=== PATIENT | male | born 1955 | race African-American/Black ===

== ENCOUNTER → 2018-07-12 | Day surgery (SDC) | payer MEDICARE, OTHER ==
[~2018-07-12] VITALS: Ht 182.9 cm; Wt 53.1 kg
[2018-07-12] VITALS (17 sets, daily range): BP systolic 103–193; BP diastolic 54–119; PULSE 95–104; RESP 17–18; Ht 182.9 cm; Wt 53.1 kg
[~2018-07-12] MED LIST: AMLO-218 PO; ASPI81TA52 PO; ATOR-2 PO; BACL10TA PO; CEFAZOLIN 1 GM INJ ONE; DEXTROSE 50% 50 ML SYRINGE IV ONE; DEXTROSE 50% 50 ML SYRINGE ONE; DIPHENHYDRAMINE 50 MG INJ IV PRN; FENTAnyl 50 MCG/ML VIAL IV PRN; FENTAnyl 50 MCG/ML VIAL ONE; FOLI1CAP PO; GELATIN SIZE 100 SPONGE ONE; GELATIN SIZE 100 SPONGE TOP ONE; GLIP5TAB13 PO; HEPARIN 1000 UNITS/ML 10 ML INJ IRR ONE; HEPARIN 1000 UNITS/ML 10 ML INJ ONE; HYDROmorphONE 1 MG/5 ML IV SYRINGE IV PRN; IPRATROPIUM (NEB) 0.5 MG/2.5 ML AMP HHN PRN; LABETALOL HCL 20MG INJ IV PRN; LEVALBUTEROL (NEB) 1.25 MG/0.5 ML AMP HHN PRN; LIDOCAINE 1% (MPF) 30 ML INJ ONE; METOCLOPRAMIDE 10 MG INJ ONE; MIDAZOLAM 1 MG/ML 2 ML INJ ONE; MIRT15TA5 PO; ONDANSETRON 4 MG INJ IV PRN; ONDANSETRON 4 MG INJ ONE; PARO10TA57 PO; PHENYLephrine (100 MCG/ML) 10ML SYG ONE; PROPOFOL 20 ML ONE; ROPIVACAINE 0.5 % 30 ML VIAL ONE; SEVOFLURANE 15 MIN ONE; SVL800C PO; THROMBIN 5000 UNIT VIAL ONE; THROMBIN 5000 UNIT VIAL TOP ONE; ZINC220C5 PO; hydrALAzine 20 MG INJ IV PRN
--- NOTE | 2018-07-12 07:05 | HPN ---
Date/Time of Note Date/Time of Note DATE: 07/12/18 TIME: 07:05 Interval H&P Admission Note Pt. seen H&P reviewed: No system changes JUWAN KANG MD Jul 12, 2018 07:05
--- NOTE | 2018-07-12 08:00 | PREAC ---
Date/Time of Note Date/Time of Note DATE: 07/12/18 TIME: 07:58 Anesthesia Eval and Record Evaluation Time Pre-Procedure Interview DATE: 07/12/18 TIME: 07:58 Age 62 Sex male NPO: 8 hrs Preoperative diagnosis ESRD Planned procedure L arm fistula creation Past Medical History Past Medical History: Includes Cardio: HTN, Dyslipidemia, CHF Endo: Diabetes Neuro: CVA (x4), Other (global weakness w/ L arm hemiplegia) Renal: ESRD on dialysis Heme: Anemia Surgery & Anesthesia Issues No known issue Meds Anticoagulation: No Beta Beny within 24 hr: No Reason Beta Beny not given: Pt. not on B-Beny Reported Medications Amlodipine Besylate* (Norvasc*) 10 Mg Tablet, 10 MG PO DAILY, TAB 07/12/18 Sevelamer Hcl* (Renagel*) 800 Mg Tablet, 800 MG PO WITH MEALS, TAB 07/12/18 Zinc Sulfate* (Zinc Sulfate*) 220 Mg Cap, 220 MG PO DAILY, CAP 07/12/18 Glipizide* (Glipizide*) 5 Mg Tablet, 5 MG PO AC BREAKFAST DINNER, TAB 07/12/18 Folic Acid/Vitamin B Comp W-C (Nephrocaps Capsule) 1 Mg Capsule, 1 MG PO DAILY, CAP 07/12/18 Atorvastatin* (Atorvastatin*) 80 Mg Tablet, 80 MG PO QHS, #30 TAB 07/12/18 Baclofen* (Baclofen*) 10 Mg Tablet, 10 MG PO TID, TAB 07/12/18 Mirtazapine* (Mirtazapine*) 15 Mg Tablet, 15 MG PO HS, TAB 07/12/18 Aspirin (Low Dose Aspirin) 81 Mg Tablet.dr, 81 MG PO DAILY, #30 TAB 07/12/18 Paroxetine Hcl* (Paxil*) 10 Mg Tablet, 10 MG PO DAILY, TAB 07/12/18 Meds reviewed: Yes Allergies Coded Allergies: No Known Allergy (Unverified , 07/12/18) Allergies Reviewed: Yes Labs/Studies Labs Reviewed: Reviewed by anesthesiologist Result Diagram: 07/12/18 0715 Laboratory Tests 07/12/18 07:15 test: Negative Studies: ECG, CXR Pre-procedure Exam Airway: Adequate mouth opening, Adequate thyromental dist Mallampati: Mallampati III Teeth: Normal Lung: Normal Heart: Normal ASA Physical Status ASA physical status: 4 Emergency: None Planned Anesthetic General/MAC: LMA Planned Pain Management Single shot nerve block, Parenteral pain med, Local by surgeon Pre-operative Attestations Prior to commencing anesthesia and surgery, the patient was re-evaluated, there was verification of: *The patient's identity *The results of appropriate recent lab work and preoperative vital signs *The above evaluation not changing prior to induction *Anesthetic plan, risk benefits, alternative and complications discussed with patient/family; questions answered; patient/family understands, accepts and wis hes to proceed. ALTAGRACIA CARTER MD Jul 12, 2018 08:00
--- NOTE | 2018-07-12 09:50 | NUR ---
PACU SP LEFT AV GRAFT PLACEMENT, VSS NO ACUTE RESP DISTRESS NOTED. LEFT ARM DSG DRY/INTACT. BHARATH/FRANSICO +. CMS LUE INTACT. COND STABLE. Addendum: 07/12/18 at 1016 by AZ CURIEL RN Amended: Links added.
--- NOTE | 2018-07-12 09:51 | SIPON ---
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
--- NOTE | 2018-07-12 11:22 | NUR ---
PACU TRANSFERRED TO [facility] IN STABLE COND. PAIN 0/10 PER PT. LEFT ARM DSG DRY/INTACT. REPORT GIVEN TO JASIEL CASTRO . Addendum: 07/12/18 at 1357 by AZ CURIEL RN Amended: Links added.
--- NOTE | 2018-07-12 11:55 | NUR ---
pt transfer from pacu at 1125. at bedside. denies pain and nausea. d/c teaching done and instructions given. iv hl d/c'd.
--- NOTE | 2018-07-12 12:14 | RADRPT ---
Vent Rate: 102 bpm RR Interval: 0 msec ME Interval: 192 msec QRS Duration: 70 msec QT Interval: 350 msec QTC Interval: 456 msec P-R-T [place]: 75 - 55 - 95 degrees Sinus tachycardia Nonspecific ST and T wave abnormality Abnormal ECG Electronically Signed By: Gaurav Reilly [id number]
--- NOTE | 2018-07-12 12:25 | OPR ---
DATE OF OPERATION: 07/12/2018 PREOPERATIVE DIAGNOSIS: End-stage renal disease. POSTOPERATIVE DIAGNOSIS: End-stage renal disease. PROCEDURE PERFORMED: Creation of left upper arm AV graft. SURGEON: Juwan Yeh MD ANESTHESIA: An LMA with block. ESTIMATED BLOOD LOSS: Minimal. COMPLICATIONS: There were no intraprocedural complications. INDICATIONS: A 62-year-old gentleman has end-stage renal disease on dialysis for several years via l eft arm AV fistula. It thrombosed multiple times over the last several months and there is a central occlusion in the cephalic arch. We put a femoral PermCath in last week and brought him in today for left arm AV graft. DESCRIPTION OF PROCEDURE: The patient was brought to the operating room and placed on the table in s upine position. Left arm was prepped and draped in the usual sterile fashion. I marked the brachial artery just above the elbow and the axillary vein in the upper arm. Once anesthesia was induced and a block was placed and left arm was prepped and draped in the usual sterile fashion, I began by cem santana an incision over the brachial artery just above the elbow. I dissected out the brachial artery be tween the heads of the bicep. It was a little calcified that was clampable and had a good pulse. I then made an incision over the axillary vein in the medial left upper arm. I dissected down through the subcutaneous tissue using electrocautery. I dissected out the axillary vein. It was a good isreal adam vein and a good size and patent. I then tunneled a 6 mm Artegraft between the 2 incisions using a Lilliana-Wick tunneler. I then clamped the axillary vein proximally and distally, made about 1.5 cm l anil venotomy. I cut the upper end of the graft to fit the venotomy and anastomosed the upper end of the graft inside of axillary vein using 6-0 Prolene suture in a running standard vascular surgical fa shion. I then clamped the brachial artery proximally and distally, made an 8 mm long anterior arteri otomy and anastomosed the lower end of graft to the side of the brachial artery, again using 6-0 Prol magaly suture in a running standard vascular surgical fashion. I then removed the clamps. There was go od hemostasis and there was a good thrill in the graft. I closed the skin incisions in 2 layers usin g an inner layer of 3-0 Vicryl and an outer layer of 4-0 Monocryl subcuticular suture. Sterile dress ing was applied. The patient was then transferred to recovery room in stable condition and tolerated the procedure well without any complications. Dictated By: JUWAN WALTERS/AMADEO Conf#: [id number] DID#: [id number]
--- NOTE | 2018-07-12 14:10 | PAC ---
Date/Time of Note Date/Time of Note DATE: 07/12/18 TIME: 14:10 Post-Anesthesia Notes Post-Anesthesia Note Last documented vital signs Vital Signs Date Temp Pulse Resp B/P (MAP) Pulse Ox O2 O2 Flow FiO2 Time Delivery Rate 07/12/18 98.4 95 18 180/80 100 Room Air 11:25 (113) 07/12/18 8.0 10:09 Activity: WNL Respiratory function: WNL Cardiovascular function: WNL Mental status: Baseline Pain reasonably controlled: Yes Hydration appropriate: Yes Nausea/Vomiting absent: Yes ALTAGRACIA CARTER MD Jul 12, 2018 14:10
== END | disposition home or self-care (01) ==
LOC: SDS 06:35
PROVIDERS: ATTEND Surgery Vascular Surgery
DX: T82.868A Thrombosis due to vascular prosthetic devices, implants and grafts, initial encounter (principal); Y84.1 Kidney dialysis as the cause of abnormal reaction of the patient, or of later complication, without mention of misadventure at the time of the procedure; I12.0 Hypertensive chronic kidney disease with stage 5 chronic kidney disease or end stage renal disease; N18.6 End stage renal disease; E11.9 Type 2 diabetes mellitus without complications
CPT/HCPCS: 36821; 71045; 80053; 82962; 85025; 85610; 85730; 93005; C1768; J0690; J1644; J2250; J2370; J2405; J2765; J2795; J3010

== ENCOUNTER 2018-12-17 20:30 | Inpatient (IN) | payer MEDICARE, OTHER ==
[~2018-12-17] VITALS: Ht 182.9 cm; Wt 62.0 kg
[~2018-12-17 20:30] MED LIST changes: -CEFAZOLIN 1 GM INJ ONE; -DEXTROSE 50% 50 ML SYRINGE IV ONE; -DEXTROSE 50% 50 ML SYRINGE ONE; -DIPHENHYDRAMINE 50 MG INJ IV PRN; -FENTAnyl 50 MCG/ML VIAL IV PRN; -FENTAnyl 50 MCG/ML VIAL ONE; -GELATIN SIZE 100 SPONGE ONE; -GELATIN SIZE 100 SPONGE TOP ONE; -HEPARIN 1000 UNITS/ML 10 ML INJ IRR ONE; -HEPARIN 1000 UNITS/ML 10 ML INJ ONE; -HYDROmorphONE 1 MG/5 ML IV SYRINGE IV PRN; -IPRATROPIUM (NEB) 0.5 MG/2.5 ML AMP HHN PRN; -LABETALOL HCL 20MG INJ IV PRN; -LEVALBUTEROL (NEB) 1.25 MG/0.5 ML AMP HHN PRN; -LIDOCAINE 1% (MPF) 30 ML INJ ONE; -METOCLOPRAMIDE 10 MG INJ ONE; -MIDAZOLAM 1 MG/ML 2 ML INJ ONE; -ONDANSETRON 4 MG INJ IV PRN; -ONDANSETRON 4 MG INJ ONE; -PHENYLephrine (100 MCG/ML) 10ML SYG ONE; -PROPOFOL 20 ML ONE; -ROPIVACAINE 0.5 % 30 ML VIAL ONE; -SEVOFLURANE 15 MIN ONE; -THROMBIN 5000 UNIT VIAL ONE; -THROMBIN 5000 UNIT VIAL TOP ONE; -hydrALAzine 20 MG INJ IV PRN
[2018-12-18] MEDS ORDERED: SOD CHLORIDE 0.9% 500 ML IV STA (02:39)
[2018-12-18] MEDS ORDERED: PIPER-TAZO 3.375 GM IV (PMX) 100 ML IVPB STA (02:39)
--- NOTE | 2018-12-18 04:16 | ERD ---
ER Documentation Chief Complaint Chief Complaint RIGHT FOOT ULCER AND CELLULITIS PER PCP HPI This is a 63-year-old male right foot ulcer with cellulitis treated by primary care physician for failure of outpatient management. Denies fevers chills nausea vomiting. Denies any other current complaints. ROS All systems reviewed and are negative except as per history of present illness. Medications Home Meds Reported Medications Amlodipine Besylate* (Norvasc*) 10 Mg Tablet, 10 MG PO DAILY, TAB 07/12/18 Sevelamer Hcl* (Renagel*) 800 Mg Tablet, 800 MG PO WITH MEALS, TAB 07/12/18 Zinc Sulfate* (Zinc Sulfate*) 220 Mg Cap, 220 MG PO DAILY, CAP 07/12/18 Glipizide* (Glipizide*) 5 Mg Tablet, 5 MG PO AC BREAKFAST DINNER, TAB 07/12/18 Folic Acid/Vitamin B Comp W-C (Nephrocaps Capsule) 1 Mg Capsule, 1 MG PO DAILY, CAP 07/12/18 Atorvastatin* (Atorvastatin*) 80 Mg Tablet, 80 MG PO QHS, #30 TAB 07/12/18 Baclofen* (Baclofen*) 10 Mg Tablet, 10 MG PO TID, TAB 07/12/18 Mirtazapine* (Mirtazapine*) 15 Mg Tablet, 15 MG PO HS, TAB 07/12/18 Aspirin (Low Dose Aspirin) 81 Mg Tablet.dr, 81 MG PO DAILY, #30 TAB 07/12/18 Paroxetine Hcl* (Paxil*) 10 Mg Tablet, 10 MG PO DAILY, TAB 07/12/18 Allergies Allergies: Coded Allergies: No Known Allergy (Unverified , 07/12/18) PMhx/Soc History of Surgery: Yes Anesthesia Reaction: No Hx Neurological Disorder: Yes (4 PREV STROKES) Hx Respiratory Disorders: No Hx Cardiac Disorders: Yes (HTN) Hx Psychiatric Problems: No Hx Miscellaneous Medical Probl: Yes (DM, KIDNEY FAILURE,DIALYSIS) Hx Alcohol Use: No Hx Substance Use: No Hx Tobacco Use: Yes (30 YEARS AGO) Smoking Status: Former smoker Physical Exam Vitals Vital Signs Date Temp Pulse Resp B/P (MAP) Pulse Ox O2 O2 Flow FiO2 Time Delivery Rate 12/18/18 94 31 191/84 100 Room Air 03:20 (119) 12/17/18 97.3 90 20 160/74 100 21:52 (102) Physical Exam Const: No acute distress Head: Atraumatic Eyes: Normal Conjunctiva ENT: Normal External Ears, Nose and Mouth. Neck: Full range of motion. No meningismus. Resp: Clear to auscultation bilaterally Cardio: Regular rate and rhythm, no murmurs Abd: Soft, non tender, non distended. Normal bowel sounds Skin: Erythema induration ulcerated right great big toe. Minimal drainage noted. Back: No midline or flank tenderness Ext: No cyanosis, or edema Neur: Awake and alert Psych: Normal Mood and Affect Result Diagram: 12/18/18 0305 12/18/18 0305 Results 24 hrs Laboratory Tests Test 12/18/18 03:05 White Blood Count 9.0 10^3/ul Red Blood Count 3.50 10^6/ul Hemoglobin 10.0 g/dl Hematocrit 32.5 % Mean Corpuscular Volume 92.9 fl Mean Corpuscular Hemoglobin 28.6 pg Mean Corpuscular Hemoglobin Concent 30.8 g/dl Red Cell Distribution Width 17.2 % Platelet Count 379 10^3/UL Mean Platelet Volume 10.7 fl Immature Granulocytes % 0.400 % Neutrophils % 63.6 % Lymphocytes % 20.3 % Monocytes % 13.4 % Eosinophils % 1.6 % Basophils % 0.7 % Nucleated Red Blood Cells % 0.0 /100WBC Immature Granulocytes # 0.040 10^3/ul Neutrophils # 5.8 10^3/ul Lymphocytes # 1.8 10^3/ul Monocytes # 1.2 10^3/ul Eosinophils # 0.1 10^3/ul Basophils # 0.1 10^3/ul Nucleated Red Blood Cells # 0.0 10^3/ul Sodium Level 140 mmol/L Potassium Level 5.3 mmol/L Chloride Level 88 mmol/L Carbon Dioxide Level 40 mmol/L Anion Gap 12 Blood Urea Nitrogen 51 mg/dl Creatinine 9.54 mg/dl Est Glomerular Filtrat Rate mL/min 7 mL/min Glucose Level 211 mg/dl Calcium Level 9.1 mg/dl Total Bilirubin 0.5 mg/dl Direct Bilirubin 0.00 mg/dl Indirect Bilirubin 0.5 mg/dl Aspartate Amino Transf (AST/SGOT) 22 IU/L Alanine Aminotransferase (ALT/SGPT) 15 IU/L Alkaline Phosphatase 144 IU/L Total Protein 8.3 g/dl Albumin 4.5 g/dl Globulin 3.80 g/dl Albumin/Globulin Ratio 1.18 Lipase 245 U/L Current Medications Medications Dose Sig/Sena Start Time Status Last (Trade) Ordered Route PRN Stop Time Admin Dose Reason Admin Sodium 500 ml @ Q1H STAT 12/18/18 DC 12/18/18 Chloride 500 mls/hr IV 02:39 12/18/18 03:17 03:38 Piperacillin 100 ml @ ONCE STAT 12/18/18 DC 12/18/18 Sod/ 200 mls/hr IVPB 02:39 12/18/18 03:17 Tazobactam 03:08 Sod Ondansetron 4 mg BRIDGE ORDER 12/18/18 HCl (Zofran PRN IV 04:30 12/19/18 Inj) NAUSEA/VOMITI 04:29 NG 650 mg ER BRIDGE 12/18/18 Acetaminophen PRN PO 04:30 12/19/18 (Tylenol .MILD PAIN 04:29 Tab) 1-3 OR TEMP Procedures/MDM Medical decision making: This very pleasant patient comes in with essentially infected diabetic foot ulcer. Started on Zosyn and vancomycin. Pending cultures. Will be admitted to Dr. Flynn Departure Diagnosis: Primary Impression: Diabetic foot ulcer Diabetic foot ulcer location: unspecified part of foot Diabetes mellitus type: type 2 Laterality: unspecified laterality Non-pressure ulcer stage: unspecified non-pressure ulcer stage Qualified Codes: E11.621 - Type 2 diabetes mellitus with foot ulcer; L97.509 - Non-pressure chronic ulcer of other part of unspecified foot with unspecified severity Condition: KALIE Diggs Dec 18, 2018 04:16
[2018-12-18] MEDS ORDERED: ACETAMINOPHEN 325 MG TAB PO PRN ×2 (04:30→09:30)
[2018-12-18] MEDS ORDERED: ONDANSETRON 4 MG INJ IV PRN (04:30)
[2018-12-18] MEDS ORDERED: LEVO500T10 PO (05:19)
[2018-12-18] MEDS ORDERED: CLOP75TA28 PO (05:19)
[2018-12-18] MEDS ORDERED: GLIM2TAB PO (05:19)
[2018-12-18] MEDS ORDERED: FOLI0.8T2 PO (05:19)
[2018-12-18 09:00] VITALS: BP 193/91; PULSE 99; RESP 17
[2018-12-18] MEDS ORDERED: LEVOFLOXACIN 500 MG TAB PO SCH (09:30)
[2018-12-18] MEDS ORDERED: VANCOMYCIN IV PER PHARMACY XX SCH (09:30)
[2018-12-18] MEDS: ASPIRIN (EC) 81 MG TAB PO SCH (09:55)
[2018-12-18] MEDS: CLOPIDOGREL 75 MG TAB PO SCH (09:55)
[2018-12-18] MEDS: MULTIVIT/CA CARB/B CMPLX/FA TAB PO SCH (09:55)
[2018-12-18] MEDS: ZINC SULFATE 220 MG CAP PO SCH (09:55)
[2018-12-18] MEDS: AMLODIPINE 10 MG TAB PO SCH (09:56)
[2018-12-18] MEDS ORDERED: VANCOMYCIN 1 GM (PMX) 250 ML IVPB ONE (10:00)
[2018-12-18] MEDS ORDERED: SEVELAMER 800 MG TAB PO SCH (11:30)
[2018-12-18] MEDS: SEVELAMER CARBONATE 800 MG TABLET PO SCH ×2 (11:47→17:49)
[2018-12-18] MEDS: PAROXETINE 10 MG TAB PO SCH (11:47)
[2018-12-18] MEDS: INSULIN ASPART [NOVOLOG] 3 ML PEN SC SCH ×5 (12:10→21:00)
[2018-12-18] MEDS: BACLOFEN 10 MG TAB PO SCH ×2 (12:15→21:39)
--- NOTE | 2018-12-18 12:19 | HP ---
Date/Time of Note Date/Time of Note DATE: 12/18/18 TIME: 12:11 Assessment/Plan VTE Prophylaxis SCD applied (from Nsg): Yes Pharmacological prophylaxis: other Lines/Catheters IV Catheter Type (from Nrsg): Saline Lock Assessment/Plan Assessment/Plan -Right foot ulcer with cellulitis. Continue broad-spectrum antibiotics. Dr. Lidya kennedy is asked to see patient in podiatry consultation. Dr. Giles is asked to see patient in infection disease consultation. -Hemodialysis dependent end-stage renal disease. Dr. Agustin is asked to see patient in nephrology consultation. -Diabetes mellitus type 2. Continue Lantus and NovoLog. -Hyperlipidemia, continue statin. -History of stroke, continue Plavix. Further recommendations based on clinical course. Plan of care discussed with Dr. Perez. Result Diagram: 12/18/18 0305 12/18/18 0305 Results 24hrs Laboratory Tests Test 12/18/18 03:05 White Blood Count 9.0 # Red Blood Count 3.50 L Hemoglobin 10.0 L Hematocrit 32.5 L Mean Corpuscular Volume 92.9 Mean Corpuscular Hemoglobin 28.6 L Mean Corpuscular Hemoglobin Concent 30.8 L Red Cell Distribution Width 17.2 #H Platelet Count 379 # Mean Platelet Volume 10.7 H Immature Granulocytes % 0.400 Neutrophils % 63.6 Lymphocytes % 20.3 Monocytes % 13.4 H Eosinophils % 1.6 Basophils % 0.7 Nucleated Red Blood Cells % 0.0 Immature Granulocytes # 0.040 H Neutrophils # 5.8 Lymphocytes # 1.8 Monocytes # 1.2 H Eosinophils # 0.1 Basophils # 0.1 Nucleated Red Blood Cells # 0.0 Sodium Level 140 Potassium Level 5.3 H Chloride Level 88 L Carbon Dioxide Level 40 H Anion Gap 12 Blood Urea Nitrogen 51 H Creatinine 9.54 H Est Glomerular Filtrat Rate mL/min 7 L Glucose Level 211 Calcium Level 9.1 Total Bilirubin 0.5 Direct Bilirubin 0.00 Indirect Bilirubin 0.5 Aspartate Amino Transf (AST/SGOT) 22 Alanine Aminotransferase (ALT/SGPT) 15 Alkaline Phosphatase 144 H Total Protein 8.3 H Albumin 4.5 Globulin 3.80 H Albumin/Globulin Ratio 1.18 Lipase 245 HPI/ROS Admit Date/Time Admit Date/Time Dec 18, 2018 at 04:02 Hx of Present Illness The patient is 63-year-old gentleman with history of strokes, diabetes, hemodialysis dependent end-stage renal disease, and hyperlipidemia. 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 Most of the history was obtained from medical records. Patient was sent from PMD office for right foot ulcer with cellulitis. Patient stated that he had his hemodialysis 2 days ago. Patient denies any shortness of breath denies any chest pain denies any fever chills, denies any nausea vomiting diarrhea. Patient was started on vancomycin and Zosyn for a right foot ulcer and admitted for further evaluation and management to medical surgical floor. ROS Point review of system is negative except for what mentioned in HPI PMH/Family/Social Past Medical History Medical History: diabetes, renal disease, other (Stroke) Medications Current Medications Vancomycin HCl (Vanco Iv Per Pharmacy) VANCOMYCIN PER PHARMACY PER PROTOCOL XX ; Start 12/18/18 at 09:30 Piperacillin Sod/ Tazobactam Sod 50 ml @ 200 mls/hr Q8H IVPB ; Start 12/18/18 at 14:00 Hydralazine HCl (Apresoline) 20 mg Q4 PRN IV HIGH BLOOD; Start 12/18/18 at 09:30 Acetaminophen (Tylenol Tab) 650 mg Q4H PRN PO MILD PAIN(1-3)OR ELEVATED TEMP; Start 12/18/18 at 09:30 Acetaminophen/ Hydrocodone Bitart ([place] (5/325)) 1 tab Q4H PRN PO MODERATE PAIN LEVEL 4-6; Start 12/18/18 at 09:30 Diagnostic Test (Pha) (Accu-Chek) 1 ea 02 XX ; Start 12/19/18 at 02:00 Insulin Aspart (Novolog Insulin Pen) NOVOLOG *MILD* ALGORITHM WITH MEALS BEDTIME SC ; Start 12/18/18 at 12:00 Amlodipine Besylate (Norvasc) 10 mg DAILY PO Last administered on 12/18/18at 09:56; Admin Dose 10 MG; Start 12/18/18 at 09:30 Aspirin (Halfprin) 81 mg DAILY PO Last administered on 12/18/18at 09:55; Admin Dose 81 MG; Start 12/18/18 at 09:30 Atorvastatin Calcium (Lipitor) 80 mg QHS PO ; Start 12/18/18 at 21:00 Baclofen (Lioresal) 10 mg TID PO ; Start 12/18/18 at 13:00 Clopidogrel Bisulfate (plaVIX) 75 mg DAILY PO Last administered on 12/18/18 09:55; Admin Dose 75 MG; Start 12/18/18 at 09:30 Multivit/Ca Carb/ B Cmplx/FA/Prenat (Amarilis-Christina) 1 tab DAILY PO Last administered on 12/18/18 09:55; Admin Dose 1 TAB; Start 12/18/18 at 09:30 Levofloxacin (Levaquin) 500 mg DAILY PO Last administered on 12/18/18at 09:55; Admin Dose 500 MG; Start 12/18/18 at 09:30 Mirtazapine (Remeron) 15 mg HS PO ; Start 12/18/18 at 21:00 Paroxetine HCl (Paxil) 10 mg DAILY PO Last administered on 12/18/18at 11:47; Admin Dose 10 MG; Start 12/18/18 at 09:30 Sevelamer HCl (Renagel) 800 mg WITH MEALS PO ; Start 12/18/18 at 11:30 Zinc Sulfate (Zinc Sulfate) 220 mg DAILY PO Last administered on 12/18/18at 09:55; Admin Dose 220 MG; Start 12/18/18 at 09:30 Sevelamer Carbonate (Renvela) 800 mg WITH MEALS PO Last administered on 12/18/18 11:47; Admin Dose 800 MG; Start 12/18/18 at 11:30 Coded Allergies: No Known Allergy (Unverified , 12/18/18) Past Surgical History Past Surgical Hx: other (Status post left upper extremity AV fistula creation 2 years ago, status post bilateral cataract surgery) Family History Significant Family History: no pertinent family hx Social History Alcohol Use: none Smoking Status: Former smoker Drug Use: none Exam/Review of Systems Vital Signs Vitals Vital Signs Date Temp Pulse Resp B/P (MAP) Pulse Ox O2 O2 Flow FiO2 Time Delivery Rate 12/18/18 91 10 177/77 100 Room Air 06:10 (110) 12/17/18 97.3 21:52 Exam Constitutional: alert, oriented Head: normocephalic Neck: supple Respiratory: clear to auscultation Cardiovascular: nl pulses Gastrointestinal: soft, non-tender Musculoskeletal: nl extremities to inspection Extremities: normal pulses, other (Left foot diabetic ulcer) Neurological: nl mental status NEL LARSEN Dec 18, 2018 12:19
--- NOTE | 2018-12-18 12:51 | CONS ---
Assessment/Plan Assessment/Plan Hospital Course (Demo Recall) Assessment- ulcer right 2nd toe, OM right 2nd toe with PIPJ bone exposed, Cellulitis right foot Plan: Will be scheduling pt to have amputation of right 2nd toe performed in the hospital ordering xrays pre-op right foot To change dressing with betadine and gauze with cling daily until surgery performed To continue antibiotics Consultation Date/Type/Reason Admit Date/Time Dec 18, 2018 at 04:02 Date of Consultation: Dec 18, 2018 Type of Consult Podiatry consult Reason for Consultation OM of right 2nd toe with cellultis of right foot possible amputation of right 2nd toe Date/Time of Note DATE: 12/18/18 TIME: 12:44 Hx of Present Illness Pt was seen for ulcer and OM right 2nd toe in the office earlier this week was planning to have amputation of right 2nd toe scheduled but the foot got worse therefore sent pt to get admitted before proceeding with surgery Past Medical History Medical History: diabetes, renal disease, other (Stroke) Home Meds Reported Medications Folic Acid/Vitamin B Comp W-C (Renal Multivitamin Tablet) 0.8 Mg Tablet, 1 TAB PO DAILY for 90 Days, #90 12/18/18 Glimepiride* (Glimepiride*) 2 Mg Tablet, 2 MG PO BID for 90 Days, #180 12/18/18 Clopidogrel Bisulfate (Clopidogrel) 75 Mg Tablet, 75 MG PO DAILY for 90 Days, #90 12/18/18 Levofloxacin* (Levofloxacin*) 500 Mg Tablet, 500 MG PO DAILY 12/18/18 Amlodipine Besylate* (Norvasc*) 10 Mg Tablet, 10 MG PO DAILY, TAB 07/12/18 Sevelamer Hcl* (Renagel*) 800 Mg Tablet, 800 MG PO WITH MEALS, TAB 07/12/18 Zinc Sulfate* (Zinc Sulfate*) 220 Mg Cap, 220 MG PO DAILY, CAP 07/12/18 Glipizide* (Glipizide*) 5 Mg Tablet, 5 MG PO AC BREAKFAST DINNER, TAB 07/12/18 Folic Acid/Vitamin B Comp W-C (Nephrocaps Capsule) 1 Mg Capsule, 1 MG PO DAILY, CAP 07/12/18 Atorvastatin* (Atorvastatin*) 80 Mg Tablet, 80 MG PO QHS, #30 TAB 07/12/18 Baclofen* (Baclofen*) 10 Mg Tablet, 10 MG PO TID, TAB 07/12/18 Mirtazapine* (Mirtazapine*) 15 Mg Tablet, 15 MG PO HS, TAB 07/12/18 Aspirin (Low Dose Aspirin) 81 Mg Tablet.dr, 81 MG PO DAILY, #30 TAB 07/12/18 Paroxetine Hcl* (Paxil*) 10 Mg Tablet, 10 MG PO DAILY, TAB 07/12/18 Medications Current Medications Vancomycin HCl (Vanco Iv Per Pharmacy) VANCOMYCIN PER PHARMACY PER PROTOCOL XX ; Start 12/18/18 at 09:30 Piperacillin Sod/ Tazobactam Sod 50 ml @ 200 mls/hr Q8H IVPB ; Start 12/18/18 at 14:00 Hydralazine HCl (Apresoline) 20 mg Q4 PRN IV HIGH BLOOD; Start 12/18/18 at 09:30 Acetaminophen (Tylenol Tab) 650 mg Q4H PRN PO MILD PAIN(1-3)OR ELEVATED TEMP; Start 12/18/18 at 09:30 Acetaminophen/ Hydrocodone Bitart ([place] (5/325)) 1 tab Q4H PRN PO MODERATE PAIN LEVEL 4-6; Start 12/18/18 at 09:30 Insulin Aspart (Novolog Insulin Pen) NOVOLOG *MILD* ALGORITHM WITH MEALS BEDTIME SC Last administered on 12/18/18at 12:10; Admin Dose 7 UNIT; Start 12/18/18 at 12:00 Amlodipine Besylate (Norvasc) 10 mg DAILY PO Last administered on 12/18/18at 09:56; Admin Dose 10 MG; Start 12/18/18 at 09:30 Aspirin (Halfprin) 81 mg DAILY PO Last administered on 12/18/18at 09:55; Admin Dose 81 MG; Start 12/18/18 at 09:30 Atorvastatin Calcium (Lipitor) 80 mg QHS PO ; Start 12/18/18 at 21:00 Baclofen (Lioresal) 10 mg TID PO Last administered on 12/18/18at 12:15; Admin Dose 10 MG; Start 12/18/18 at 13:00 Clopidogrel Bisulfate (plaVIX) 75 mg DAILY PO Last administered on 12/18/18at 09:55; Admin Dose 75 MG; Start 12/18/18 at 09:30 Multivit/Ca Carb/ B Cmplx/FA/Prenat (Amarilis-Christina) 1 tab DAILY PO Last administered on 12/18/18at 09:55; Admin Dose 1 TAB; Start 12/18/18 at 09:30 Levofloxacin (Levaquin) 500 mg DAILY PO Last administered on 12/18/18at 09:55; Admin Dose 500 MG; Start 12/18/18 at 09:30 Mirtazapine (Remeron) 15 mg HS PO ; Start 12/18/18 at 21:00 Paroxetine HCl (Paxil) 10 mg DAILY PO Last administered on 12/18/18at 11:47; Admin Dose 10 MG; Start 12/18/18 at 09:30 Sevelamer HCl (Renagel) 800 mg WITH MEALS PO ; Start 12/18/18 at 11:30 Zinc Sulfate (Zinc Sulfate) 220 mg DAILY PO Last administered on 12/18/18at 09:55; Admin Dose 220 MG; Start 12/18/18 at 09:30 Sevelamer Carbonate (Renvela) 800 mg WITH MEALS PO Last administered on 12/18/18at 11:47; Admin Dose 800 MG; Start 12/18/18 at 11:30 Miscellaneous Information (* Miscellaneous Pharmacy Order) Discontinue current oral sulfonylur... ONCE ONCE XX ; Start 12/18/18 at 12:30; Stop 12/18/18 at 12:31; Status UNV Diagnostic Test (Pha) (Accu-Chek) 1 ea 02 XX ; Start 12/19/18 at 02:00 Insulin Glargine (Lantus) 9 units DAILY@2000 SC ; Start 12/18/18 at 20:00; Status UNV Insulin Aspart (Novolog Insulin Pen) 3 unit WITH MEALS SC ; Start 12/18/18 at 17:35; Status UNV Miscellaneous Information (* Miscellaneous Pharmacy Order) HYPOGLYCEMIA PROTOCOL w... ONCE ONCE XX ; Start 12/18/18 at 12:30; Stop 12/18/18 at 12:31; Status UNV Miscellaneous Information (* Miscellaneous Pharmacy Order) Discontinue all previ... ONCE ONCE XX ; Start 12/18/18 at 12:30; Stop 12/18/18 at 12:31; Status UNV Miscellaneous Information 1 ea NOTE XX ; Start 12/18/18 at 13:00 Glucose (Glutose) 15 gm Q15M PRN PO DECREASED GLUCOSE; Start 12/18/18 at 13:00 Glucose (Glutose) 22.5 gm Q15M PRN PO DECREASED GLUCOSE; Start 12/18/18 at 13:00 Dextrose (D50w Syringe) 25 ml Q15M PRN IV DECREASED GLUCOSE; Start 12/18/18 at 13:00 Dextrose (D50w Syringe) 50 ml Q15M PRN IV DECREASED GLUCOSE; Start 12/18/18 at 13:00 Glucagon (Glucagen) 1 mg Q15M PRN IM DECREASED GLUCOSE; Start 12/18/18 at 13:00 Glucose (Glutose) 15 gm Q15M PRN BUCCAL DECREASED GLUCOSE; Start 12/18/18 at 13:00 Allergies: Coded Allergies: No Known Allergy (Unverified , 12/18/18) Past Surgical History Past Surgical Hx: other (Status post left upper extremity AV fistula creation 2 years ago, status post bilateral cataract surgery) Social History Alcohol Use: none Smoking Status: Former smoker Drug Use: none Exam/Review of Systems Exam Vitals Vital Signs Date Temp Pulse Resp B/P (MAP) Pulse Ox O2 O2 Flow FiO2 Time Delivery Rate 12/18/18 91 10 177/77 100 Room Air 06:10 (110) 12/17/18 97.3 21:52 Results Result Diagram: 12/18/18 0305 12/18/18 0305 Results 24hrs Laboratory Tests Test 12/18/18 03:05 12/18/18 12:07 White Blood Count 9.0 # Red Blood Count 3.50 L Hemoglobin 10.0 L Hematocrit 32.5 L Mean Corpuscular Volume 92.9 Mean Corpuscular Hemoglobin 28.6 L Mean Corpuscular Hemoglobin Concent 30.8 L Red Cell Distribution Width 17.2 #H Platelet Count 379 # Mean Platelet Volume 10.7 H Immature Granulocytes % 0.400 Neutrophils % 63.6 Lymphocytes % 20.3 Monocytes % 13.4 H Eosinophils % 1.6 Basophils % 0.7 Nucleated Red Blood Cells % 0.0 Immature Granulocytes # 0.040 H Neutrophils # 5.8 Lymphocytes # 1.8 Monocytes # 1.2 H Eosinophils # 0.1 Basophils # 0.1 Nucleated Red Blood Cells # 0.0 Sodium Level 140 Potassium Level 5.3 H Chloride Level 88 L Carbon Dioxide Level 40 H Anion Gap 12 Blood Urea Nitrogen 51 H Creatinine 9.54 H Est Glomerular Filtrat Rate mL/min 7 L Glucose Level 211 Calcium Level 9.1 Total Bilirubin 0.5 Direct Bilirubin 0.00 Indirect Bilirubin 0.5 Aspartate Amino Transf (AST/SGOT) 22 Alanine Aminotransferase (ALT/SGPT) 15 Alkaline Phosphatase 144 H Total Protein 8.3 H Albumin 4.5 Globulin 3.80 H Albumin/Globulin Ratio 1.18 Lipase 245 Bedside Glucose 369 H Medications Medication Current Medications Vancomycin HCl (Vanco Iv Per Pharmacy) VANCOMYCIN PER PHARMACY PER PROTOCOL XX ; Start 12/18/18 at 09:30 Piperacillin Sod/ Tazobactam Sod 50 ml @ 200 mls/hr Q8H IVPB ; Start 12/18/18 at 14:00 Hydralazine HCl (Apresoline) 20 mg Q4 PRN IV HIGH BLOOD; Start 12/18/18 at 09:30 Acetaminophen (Tylenol Tab) 650 mg Q4H PRN PO MILD PAIN(1-3)OR ELEVATED TEMP; Start 12/18/18 at 09:30 Acetaminophen/ Hydrocodone Bitart ([place] (5/325)) 1 tab Q4H PRN PO MODERATE PAIN LEVEL 4-6; Start 12/18/18 at 09:30 Insulin Aspart (Novolog Insulin Pen) NOVOLOG *MILD* ALGORITHM WITH MEALS BEDTIME SC Last administered on 12/18/18at 12:10; Admin Dose 7 UNIT; Start 12/18/18 at 12:00 Amlodipine Besylate (Norvasc) 10 mg DAILY PO Last administered on 12/18/18at 09:56; Admin Dose 10 MG; Start 12/18/18 at 09:30 Aspirin (Halfprin) 81 mg DAILY PO Last administered on 12/18/18at 09:55; Admin Dose 81 MG; Start 12/18/18 at 09:30 Atorvastatin Calcium (Lipitor) 80 mg QHS PO ; Start 12/18/18 at 21:00 Baclofen (Lioresal) 10 mg TID PO Last administered on 12/18/18at 12:15; Admin Dose 10 MG; Start 12/18/18 at 13:00 Clopidogrel Bisulfate (plaVIX) 75 mg DAILY PO Last administered on 12/18/18at 09:55; Admin Dose 75 MG; Start 12/18/18 at 09:30 Multivit/Ca Carb/ B Cmplx/FA/Prenat (Amarilis-Christina) 1 tab DAILY PO Last administered on 12/18/18at 09:55; Admin Dose 1 TAB; Start 12/18/18 at 09:30 Levofloxacin (Levaquin) 500 mg DAILY PO Last administered on 12/18/18at 09:55; Admin Dose 500 MG; Start 12/18/18 at 09:30 Mirtazapine (Remeron) 15 mg HS PO ; Start 12/18/18 at 21:00 Paroxetine HCl (Paxil) 10 mg DAILY PO Last administered on 12/18/18at 11:47; Admin Dose 10 MG; Start 12/18/18 at 09:30 Sevelamer HCl (Renagel) 800 mg WITH MEALS PO ; Start 12/18/18 at 11:30 Zinc Sulfate (Zinc Sulfate) 220 mg DAILY PO Last administered on 12/18/18at 09:55; Admin Dose 220 MG; Start 12/18/18 at 09:30 Sevelamer Carbonate (Renvela) 800 mg WITH MEALS PO Last administered on 12/18/18at 11:47; Admin Dose 800 MG; Start 12/18/18 at 11:30 Miscellaneous Information (* Miscellaneous Pharmacy Order) Discontinue current oral sulfonylur... ONCE ONCE XX ; Start 12/18/18 at 12:30; Stop 12/18/18 at 12:31; Status UNV Diagnostic Test (Pha) (Accu-Chek) 1 ea 02 XX ; Start 12/19/18 at 02:00 Insulin Glargine (Lantus) 9 units DAILY@2000 SC ; Start 12/18/18 at 20:00; Status UNV Insulin Aspart (Novolog Insulin Pen) 3 unit WITH MEALS SC ; Start 12/18/18 at 17:35; Status UNV Miscellaneous Information (* Miscellaneous Pharmacy Order) HYPOGLYCEMIA PROTOCOL w... ONCE ONCE XX ; Start 12/18/18 at 12:30; Stop 12/18/18 at 12:31; Status UNV Miscellaneous Information (* Miscellaneous Pharmacy Order) Discontinue all previ... ONCE ONCE XX ; Start 12/18/18 at 12:30; Stop 12/18/18 at 12:31; Status UNV Miscellaneous Information 1 ea NOTE XX ; Start 12/18/18 at 13:00 Glucose (Glutose) 15 gm Q15M PRN PO DECREASED GLUCOSE; Start 12/18/18 at 13:00 Glucose (Glutose) 22.5 gm Q15M PRN PO DECREASED GLUCOSE; Start 12/18/18 at 13:00 Dextrose (D50w Syringe) 25 ml Q15M PRN IV DECREASED GLUCOSE; Start 12/18/18 at 13:00 Dextrose (D50w Syringe) 50 ml Q15M PRN IV DECREASED GLUCOSE; Start 12/18/18 at 13:00 Glucagon (Glucagen) 1 mg Q15M PRN IM DECREASED GLUCOSE; Start 12/18/18 at 13:00 Glucose (Glutose) 15 gm Q15M PRN BUCCAL DECREASED GLUCOSE; Start 12/18/18 at 13:00 BLAINE FAIRBANKS DPM Dec 18, 2018 12:51
[2018-12-18] MEDS ORDERED: GLUCAGON 1 MG INJ IM PRN (13:00)
[2018-12-18] MEDS ORDERED: GLUCOSE GEL 15 GRAM TUBE BUCCAL PRN (13:00)
[2018-12-18] MEDS: PIPER-TAZO 2.25 GM (PMX) 50 ML IVPB SCH ×2 (13:42→22:45)
[2018-12-18 14:00] VITALS: BP 155/74; PULSE 100; RESP 18
[2018-12-18 14:12] VITALS: Ht 182.9 cm; Wt 62.0 kg
--- NOTE | 2018-12-18 15:48 | CONS ---
DATE OF ADMISSION: 12/18/2018 DATE OF CONSULTATION: 12/18/2018 TYPE OF CONSULTATION: Pulmonary. REFERRING PHYSICIAN: Dr. Perez. REASON FOR CONSULTATION: Bilateral foot infected ulcerations. HISTORY OF PRESENT ILLNESS: This is a 63-year-old gentleman who was admitted for infected ulceration . He has known vascular disease including history of stroke and a history of a left arm arteriovenou s fistula placement for hemodialysis. Patient has a chronic ulceration to bilateral feet. PAST MEDICAL HISTORY: 1. End-stage renal disease on hemodialysis. 2. Diabetes type 2. 3. Hyperlipidemia. 4. History of stroke. PAST SURGICAL HISTORY: History of left arm AV fistula, bilateral cataract surgery. FAMILY HISTORY: Noncontributory. SOCIAL HISTORY: Former smoker. MEDICATIONS: Includes vancomycin and Zosyn. PHYSICAL EXAMINATION: VITAL SIGNS: Temperature is 97.3, pulse 90, respiratory rate 20, blood pressure 160/74, pulse ox is 100 on room air. GENERAL: The patient is awake, eating frail appearing, left arm AV fistula with positive thrill, hope ateral feet with skin, subcutaneous atrophy, hammertoe deformities with ulcerations. On the PIPJ hope ateral second toe on the right there is bone exposure that is black in color with desiccation of the tissue and bone. DP pulse, nonpalpable, 1+ PT on the left. PT on the right, nonpalpable. No signs of pressure sore. LABORATORIES: WBC is 9, hemoglobin 10, hematocrit 32.5, platelets 379. Sodium 140, potassium 5.3, c hloride 88, CO2 40, BUN 51, creatinine 9.54, glucose is 211 x-rays of feet pending. Chest x-ray: Mi ld atherosclerotic vascular disease, hyperinflation reactive airway multiple left axillary stents. ASSESSMENT: 1. Bilateral foot ulceration with cellulitis and osteomyelitis. 2. End-stage renal disease on hemodialysis. 3. Diabetes type 2. 4. Peripheral arterial disease. PLAN: Obtain noninvasive arterial studies. Vascular consult, topical antiseptic recommendations, abdirahman cox to require revascularization. Also at high risk for amputation. The patient currently on empir ic antibiotics. I will continue to follow in-house. Thank you for this consultation. Labs orders reviewed. X-rays ordered. Dictated By: CASSIUS HURTADO/AMADEO Conf#: [id number] DID#: [id number] CC: JACKI PEREZ MD;*EndCC*
[2018-12-18] MEDS ORDERED: INSULIN ASPART [NOVOLOG] 3 ML PEN SC SCH ×2 (17:35→18:05)
--- NOTE | 2018-12-18 17:42 | CONS ---
DATE OF ADMISSION: 12/18/2018 DATE OF CONSULTATION: 12/18/2018 TYPE OF CONSULTATION: Infectious Disease. REASON FOR CONSULTATION: Antibiotic management. HISTORY OF PRESENT ILLNESS: Gracia Aparicio is a 63-year-old male who comes in with right foot ulcer an d cellulitis. The patient was sent in by his primary care physician. His past problems include: 1. Hypertension. 2. Diabetes mellitus. 3. Four previous strokes. 4. Renal failure. 5. Dialysis. 6. Former smoker. Acutely, the patient comes in with right foot cellulitis and ulcer. On admission, white count is 900 0, H and H of 10 and 32.5, platelet count 379,000. BUN and creatinine 51/9.54 with 64% neutrophils. PAST MEDICAL HISTORY: As outlined. FAMILY HISTORY: Noncontributory. SOCIAL HISTORY: As outlined. PHYSICAL EXAMINATION: GENERAL: The patient is an elderly elderly-appearing male who is awake, responsive, in no acute dist ress. VITAL SIGNS: Stable. He is afebrile. SKIN: Without generalized rash. He has some erythema and induration and ulceration of the right gre at toe. HEENT: Within normal limits. NECK: Supple. LYMPH NODES: None palpable. CHEST: Decreased breath sounds at the bases. HEART: Without murmur or gallop. ABDOMEN: Soft, nontender, nondistended, without organosplenomegaly or masses. EXTREMITIES: Without cyanosis, clubbing, or edema. As noted, he has erythema and induration as well as ulceration of the right great toe. RECTAL: Deferred. GENITAL: Deferred. NEUROLOGIC: No focal neurological abnormality. The patient has a white count of 9000 as noted, with 64% neutrophils. The patient was started on Zos yn and vancomycin. He was seen by Blaine Ford DPM for also of the right great toe, osteomyelitis o f the right second toe with PIP bone exposed and cellulitis of the right foot ____, possible amputati on of right second toe. So for the time being, the patient will be on vancomycin and Zosyn. He has an AV fistula in the left upper extremity. He also has a history of bilateral cataract surgeries wit h lens implants. IMPRESSION AND PLAN: Continue antibiotic therapy. Await decision on the timing of the amputation. Dictated By: MELANIA PIRES MD, JD/AMADEO Conf#: [id number] [facility]#: [id number] CC: JACKI LARA MD; BLAINE FORD DPM;*[facility]*
[2018-12-18] MEDS: EPOETIN ALFA-EPBX (ESRD) 4,000 UNIT/ML VIAL SC SCH (19:02)
[2018-12-18] MEDS ORDERED: INSULIN GLARGINE [LANTus] (100 UNITS/ML) SYG SC SCH (20:00)
[2018-12-18 20:10] VITALS: BP 163/77; PULSE 101; RESP 18
--- NOTE | 2018-12-18 20:53 | CONS ---
DATE OF ADMISSION: 12/18/2018 DATE OF CONSULTATION: 12/18/2018 TYPE OF CONSULTATION: Nephrology. REASON FOR CONSULTATION: End-stage renal disease. PHYSICIAN REQUESTING CONSULT: Dr. Perez. HISTORY OF PRESENT ILLNESS: This is a 63-year-old male with a past medical history of end-stage irene l disease, who was on dialysis Sunday, Sunday, and Sunday, access AV fistula. The patient's prima email marketing manager is . The patient also has history of dyslipidemia, diabetes, and history of CVA with hemiparesis, who presents to [facility] with a right foot ulcer and cellu litis. The patient was seen by primary care physician who recommend to go to the hospital for [facility]. The patient, upon arrival to the emergency room, had laboratory data drawn, which showed a n ormal white count. The patient is started on antibiotic therapy and admitted to med/surg for evaluat ion. In terms of patient's renal history, the patient is on dialysis Sunday, Sunday, and Sunday. He was last dialyzed 2 days ago. The patient's primary email marketing manager is . The patient says he talia lyzes in [place]. Denies any hemoptysis, hematemesis or hematochezia. PAST MEDICAL HISTORY: History of end-stage renal disease, history of hypertension, history of diabet es, and history of CVA. PAST SURGICAL HISTORY: Status post AV fistula. FAMILY HISTORY: No family history of kidney disease. SOCIAL HISTORY: Does not drink, smoke, or do drugs. MEDICATIONS: Reviewed. REVIEW OF SYSTEMS: A 14-point review of systems was conducted. Pertinent positives in HPI, otherwis e negative. PHYSICAL EXAMINATION: VITAL SIGNS: Blood pressure is 154/74, respirations 19, pulse 100, temperature 97.9. HEENT: Head is normocephalic. NECK: Supple. HEART: Regular rate. LUNGS: Show diminished breath sounds at the base. ABDOMEN: Soft, nontender to palpation without rebound or guarding. EXTREMITIES: Negative for clubbing or cyanosis, no edema. The patient has noted ulcerations on bila teral foot. SKIN: No rashes noted. MUSCULOSKELETAL: No joint effusion. NEUROLOGIC: The patient has noted hemiparesis. LABORATORY DATA: Reviewed. ASSESSMENT AND PLAN: This is a 63-year-old male who presents with: 1. End-stage renal disease. The patient is on dialysis Sunday, Sunday, and Sunday, access AV community [facility]. Plan for hemodialysis today. Will dialyze for 3 hours 2k bath, calcium 2.5. 2. Hypokalemia. The patient will be dialyzed on low potassium bath. 3. Anemia. Continue to monitor H and H levels. We will give Epogen as needed. 4. Mineral bone disorder. Monitor calcium and phosphorus levels. 5. Diabetic foot ulcer. Continue antibiotic therapy, possible Podiatry. 6. Diabetes. Continue current insulin regimen. 7. Dyslipidemia. Continue statin therapy. 8. History of cerebrovascular accident. Continue medical management. Thank you, Dr. Perez, for this interesting consult. It will be a pleasure to follow patient with you throughout the hospital course. Dictated By: RUFUS VEGA DO NR/NTS Conf#: [id number] DID#: [id number] CC: BLAINE FAIRBANKS DPM; JACKI PEREZ MD;*EndCC*
[2018-12-18] MEDS: MIRTAZAPINE 15 MG TAB PO SCH (21:39)
[2018-12-18] MEDS: ATORVASTATIN 80 MG TAB PO SCH (21:39)
[2018-12-18] MEDS: POVIDONE IODINE 10% 28.4 GM OINT TOP SCH (21:53)
[2018-12-18] MEDS: DAKINS 0.0125%(1/40) 473 ML SOLUTION TP SCH (22:45)
[2018-12-18] MEDS ORDERED: INSULIN GLARGINE [LANTus] (100 UNITS/ML) SYG SC ONE (23:00)
[2018-12-19] VITALS (19 sets, daily range): BP systolic 143–177; BP diastolic 65–87; PULSE 88–109; RESP 17–20
[2018-12-19] MEDS ORDERED: ACCU-CHEK XX SCH (02:00)
[2018-12-19] MEDS: ACCU-CHEK XX SCH (02:00)
[2018-12-19] MEDS: PIPER-TAZO 2.25 GM (PMX) 50 ML IVPB SCH ×3 (05:42→22:44)
[2018-12-19] MEDS: INSULIN ASPART [NOVOLOG] 3 ML PEN SC SCH ×7 (08:00→21:00)
[2018-12-19] MEDS: AMLODIPINE 10 MG TAB PO SCH (09:00)
[2018-12-19] MEDS ORDERED: EUCERIN 113 GM CR TOP SCH (09:00)
[2018-12-19] MEDS ORDERED: MULTIVIT/CA CARB/B CMPLX/FA TAB PO SCH (09:00)
--- NOTE | 2018-12-19 09:04 | PN ---
DATE: 12/19/2018 SUBJECTIVE: The patient is stable, no events overnight. OBJECTIVE: VITAL SIGNS: Blood pressure is 170/80, pulse 17, respiration 109, temperature 97.9. HEENT: Head is normocephalic. NECK: Supple. HEART: Regular rate. LUNGS: Show diminished breath sounds at the base. ABDOMEN: Soft, nontender to palpation. No rebound or guarding. EXTREMITIES: Negative for clubbing, cyanosis, no edema. DERMATOLOGIC: No rashes. MUSCULOSKELETAL: No joint effusion. NEUROLOGIC: No change in exam. MEDICATIONS: Reviewed. LABORATORY DATA: Has been reviewed. ASSESSMENT AND PLAN: 1. End-stage renal disease. The patient is on dialysis Sunday, Sunday, Sunday. The patient did not get dialysis yesterday. Plan for hemodialysis today. 2. Hyperkalemia. The patient will be dialyzed on a low potassium bath. 3. Anemia. Continue to monitor hemoglobin and hematocrit levels. Will give Epogen as needed. 4. Mineral bone disorder, monitor calcium and phosphorus levels. 5. Diabetic foot ulcer. Continue antibiotic therapy. Follow up with podiatry. 6. Diabetes. Continue current insulin regimen. 7. Dyslipidemia. Continue statin therapy. 8. History of cerebrovascular accident. Continue medical management. Dictated By: RUFUS VEGA DO NR/NTS Conf#: [id number] DID#: [id number] CC: JACKI LARA MD;*EndCC*
[2018-12-19] MEDS: CLOPIDOGREL 75 MG TAB PO SCH (09:15)
[2018-12-19] MEDS: ASPIRIN (EC) 81 MG TAB PO SCH (09:15)
[2018-12-19] MEDS: SEVELAMER CARBONATE 800 MG TABLET PO SCH ×3 (09:15→17:26)
[2018-12-19] MEDS: BACLOFEN 10 MG TAB PO SCH ×4 (09:15→21:01)
[2018-12-19] MEDS: ZINC SULFATE 220 MG CAP PO SCH (09:15)
[2018-12-19] MEDS: MULTIVIT/CA CARB/B CMPLX/FA TAB PO SCH (09:16)
[2018-12-19] MEDS: PAROXETINE 10 MG TAB PO SCH (09:16)
[2018-12-19] MEDS: POVIDONE IODINE 10% 28.4 GM OINT TOP SCH ×2 (09:16→22:50)
[2018-12-19] MEDS: DAKINS 0.0125%(1/40) 473 ML SOLUTION TP SCH ×2 (09:16→22:49)
[2018-12-19] MEDS: HYDROCODONE/APAP (5/325) TAB PO PRN ×2 (13:10→21:50)
--- NOTE | 2018-12-19 14:52 | CONS ---
Assessment/Plan Assessment/Plan Hospital Course (Demo Recall) 1300 Patient is in hemodialysis, looks comfortable no fevers overnight WBC 10.3 neutrophils 78.8 Indwelling's: Left upper extremity AV fistula Chest x-ray revealed no acute cardiopulmonary disease Allergy: Clindamycin Antimicrobials: Levofloxacin, Vanco Physical examination: Well-developed well-nourished elderly -[place] male in who is in no distress. Head atraumatic normocephalic neck is supple chest rise symmetrical breath sounds diminished bases. Heart: S1-S2. Abdomen s oft bowel sounds present. Extremities with bilateral lower extremities dressing intact Assessment: 1. Bilateral lower extremities wounds with cellulitis and osteomyelitis 2. End-stage renal disease 3. Diabetes 4. Diabetic neuropathy Plan: Stable, continue antibiotics, podiatry recommendations noted patient may require revascularization Consultation Date/Type/Reason Admit Date/Time Dec 18, 2018 at 04:02 Initial Consult Date 12/18/18 Type of Consult id Date/Time of Note DATE: 12/19/18 TIME: 14:51 Exam/Review of Systems Exam Vitals Vital Signs Date Temp Pulse Resp B/P (MAP) Pulse Ox O2 O2 Flow FiO2 Time Delivery Rate 12/19/18 97 13:30 12/19/18 18 164/77 100 Room Air 10:25 (106) 12/19/18 97.9 08:00 Intake and Output 12/18/18 12/18/18 12/19/18 1515:00 23:00 07:00 IntakeIntake Total 300 ml 720 ml 100 ml OutputOutput Total 200 ml BalanceBalance 300 ml 520 ml 100 ml Results Result Diagram: 12/19/18 0706 12/19/18 0706 Results 24hrs Laboratory Tests Test 12/18/18 17:29 12/18/18 17:43 12/18/18 17:44 12/18/18 21:38 Bedside Glucose 89 87 55 L Hepatitis B Surface NEGATIVE Antigen Hepatitis B Surface POSITIVE H Antibody Test 12/18/18 22:06 12/18/18 22:28 12/19/18 07:06 12/19/18 08:14 Bedside Glucose 122 168 50 L White Blood Count 10.3 Red Blood Count 2.93 L Hemoglobin 8.3 L Hematocrit 26.7 L Mean Corpuscular Volume 91.1 Mean Corpuscular 28.3 L Hemoglobin Mean Corpuscular 31.1 L Hemoglobin Concent Red Cell Distribution 17.0 H Width Platelet Count 315 Mean Platelet Volume 10.7 H Immature Granulocytes % 0.400 Neutrophils % 78.8 H Lymphocytes % 11.4 L Monocytes % 8.2 Eosinophils % 0.5 Basophils % 0.7 Nucleated Red Blood 0.0 Cells % Immature Granulocytes # 0.040 H Neutrophils # 8.1 H Lymphocytes # 1.2 Monocytes # 0.8 Eosinophils # 0.1 Basophils # 0.1 Nucleated Red Blood 0.0 Cells # Sodium Level 141 Potassium Level 5.5 H Chloride Level 94 L Carbon Dioxide Level 34 H Anion Gap 13 Blood Urea Nitrogen 69 H Creatinine 10.98 H Est Glomerular Filtrat 6 L Rate mL/min Glucose Level 33 #*L Calcium Level 8.5 Test 12/19/18 08:34 12/19/18 09:00 12/19/18 11:39 Bedside Glucose 81 81 84 Medications Medication Current Medications Vancomycin HCl (Vanco Iv Per Pharmacy) VANCOMYCIN PER PHARMACY PER PROTOCOL XX ; Start 12/18/18 at 09:30 Piperacillin Sod/ Tazobactam Sod 50 ml @ 200 mls/hr Q8H IVPB Last administered on 12/19/18at 14:33; Admin Dose 200 MLS/HR; Start 12/18/18 at 14:00 Hydralazine HCl (Apresoline) 20 mg Q4 PRN IV HIGH BLOOD; Start 12/18/18 at 09:30 Acetaminophen (Tylenol Tab) 650 mg Q4H PRN PO MILD PAIN(1-3)OR ELEVATED TEMP; Start 12/18/18 at 09:30 Acetaminophen/ Hydrocodone Bitart ([place] (5/325)) 1 tab Q4H PRN PO MODERATE PAIN LEVEL 4-6 Last administered on 12/19/18at 13:10; Admin Dose 1 TAB; Start at 09:30 Insulin Aspart (Novolog Insulin Pen) NOVOLOG *MILD* ALGORITHM WITH MEALS BEDTIME SC Last administered on 12/18/18at 12:10; Admin Dose 7 UNIT; Start 12/18/18 at 12:00 Amlodipine Besylate (Norvasc) 10 mg DAILY PO Last administered on 12/18/18at 09:56; Admin Dose 10 MG; Start 12/18/18 at 09:30 Aspirin (Halfprin) 81 mg DAILY PO Last administered on 12/19/18at 09:15; Admin Dose 81 MG; Start 12/18/18 at 09:30 Atorvastatin Calcium (Lipitor) 80 mg QHS PO Last administered on 12/18/18 21:39; Admin Dose 80 MG; Start 12/18/18 at 21:00 Baclofen (Lioresal) 10 mg TID PO Last administered on 12/19/18 14:33; Admin Dose 10 MG; Start 12/18/18 at 13:00 Clopidogrel Bisulfate (plaVIX) 75 mg DAILY PO Last administered on 12/19/18 09:15; Admin Dose 75 MG; Start 12/18/18 at 09:30 Multivit/Ca Carb/ B Cmplx/FA/Prenat (Amarilis-Christina) 1 tab DAILY PO Last administered on 12/19/18 09:16; Admin Dose 1 TAB; Start 12/18/18 at 09:30 Mirtazapine (Remeron) 15 mg HS PO Last administered on 12/18/18 21:39; Admin Dose 15 MG; Start 12/18/18 at 21:00 Paroxetine HCl (Paxil) 10 mg DAILY PO Last administered on 12/19/18 09:16; Admin Dose 10 MG; Start 12/18/18 at 09:30 Zinc Sulfate (Zinc Sulfate) 220 mg DAILY PO Last administered on 12/19/18 09:15; Admin Dose 220 MG; Start 12/18/18 at 09:30 Sevelamer Carbonate (Renvela) 800 mg WITH MEALS PO Last administered on 12/19/18 09:15; Admin Dose 800 MG; Start 12/18/18 at 11:30 Diagnostic Test (Pha) (Accu-Chek) 1 ea 02 XX ; Start 12/19/18 at 02:00 Insulin Glargine (Lantus) 9 units DAILY@2000 SC ; Start 12/18/18 at 20:00 Miscellaneous Information 1 ea NOTE XX ; Start 12/18/18 at 13:00 Glucose (Glutose) 15 gm Q15M PRN PO DECREASED GLUCOSE; Start 12/18/18 at 13:00 Glucose (Glutose) 22.5 gm Q15M PRN PO DECREASED GLUCOSE; Start 12/18/18 at 13:00 Dextrose (D50w Syringe) 25 ml Q15M PRN IV DECREASED GLUCOSE; Start 12/18/18 at 13:00 Dextrose (D50w Syringe) 50 ml Q15M PRN IV DECREASED GLUCOSE; Start 12/18/18 at 13:00 Glucagon (Glucagen) 1 mg Q15M PRN IM DECREASED GLUCOSE; Start 12/18/18 at 13:00 Glucose (Glutose) 15 gm Q15M PRN BUCCAL DECREASED GLUCOSE; Start 12/18/18 at 1 3:00 Insulin Aspart (Novolog Insulin Pen) 3 unit WITH MEALS SC Last administered on 12/18/18at 17:51; Admin Dose 3 UNIT; Start 12/18/18 at 13:30 Epoetin Josias-epbx (Retacrit (Esrd)) 8,000 unit MoWeFr@1700 SC Last administered on 12/18/18at 19:02; Admin Dose 8,000 UNIT; Start 12/18/18 at 17:00 Levofloxacin (Levaquin) 500 mg Q48H PO ; Start 12/20/18 at 08:00 Povidone Iodine (Povidone-Iodine) 1 applic BID TOP Last administered on 12/19/18at 09:16; Admin Dose 1 APPLIC; Start 12/18/18 at 21:00 Sodium Hypochlorite (Dakins Diluted (1/40)) 1 applic BID TP Last administered on 12/19/18at 09:16; Admin Dose 1 APPLIC; Start 12/18/18 at 21:00 Multi-Ingredient Ointment (Eucerin Cream) 1 applic DAILY TOP ; Start 12/19/18 at 10:28 Miscellaneous Information (*Rx Drug Level Order Reminder*) 1 0500 ONCE XX ; Start 12/20/18 at 05:00; Stop 12/20/18 at 05:01 SARABJIT DILLARD NP Dec 19, 2018 14:51
--- NOTE | 2018-12-19 16:03 | PN ---
Date/Time of Note Date/Time of Note DATE: 12/19/18 TIME: 15:40 Assessment/Plan VTE Prophylaxis Risk score (from Ns)>0 risk: 4 SCD applied (from Ns): Yes Pharmacological prophylaxis: other Lines/Catheters IV Catheter Type (from Nrs): Sal[place] Lock Urinary Cath still in place: No Assessment/Plan Hospital Course Patient is status post hemodialysis today remains hemodynamically stable, will adjust insulin for hypoglycemia patient is not consistent with meals. Plan for right second toe amputation when cleared. Dr. Callaway is asked to see patient for cardiology clearance. Chest x-rays, 2D echo, and troponin series were ordered. Assessment/Plan -Right foot ulcer with cellulitis. Continue broad-spectrum antibiotics. Dr. Giles is following in infection disease consultation. Dr. Ford following and podiatry consultation -Hemodialysis dependent end-stage renal disease. Dr. Agustin is following in nephrology consultation. -Diabetes mellitus type 2. Continue Lantus and NovoLog. -Hyperlipidemia, continue statin. -History of stroke, continue Plavix. Further recommendations based on clinical course. Plan of care discussed with Dr. Perez. Result Diagram: 12/19/18 1453 12/19/18 0706 Results 24hrs Laboratory Tests Test 12/18/18 17:29 12/18/18 17:43 12/18/18 17:44 12/18/18 21:38 Bedside Glucose 89 87 55 L Hepatitis B Surface NEGATIVE Antigen Hepatitis B Surface POSITIVE H Antibody Test 12/18/18 22:06 12/18/18 22:28 12/19/18 07:06 12/19/18 08:14 Bedside Glucose 122 168 50 L White Blood Count 10.3 Red Blood Count 2.93 L Hemoglobin 8.3 L Hematocrit 26.7 L Mean Corpuscular Volume 91.1 Mean Corpuscular 28.3 L Hemoglobin Mean Corpuscular 31.1 L Hemoglobin Concent Red Cell Distribution 17.0 H Width Platelet Count 315 Mean Platelet Volume 10.7 H Immature Granulocytes % 0.400 Neutrophils % 78.8 H Lymphocytes % 11.4 L Monocytes % 8.2 Eosinophils % 0.5 Basophils % 0.7 Nucleated Red Blood 0.0 Cells % Immature Granulocytes # 0.040 H Neutrophils # 8.1 H Lymphocytes # 1.2 Monocytes # 0.8 Eosinophils # 0.1 Basophils # 0.1 Nucleated Red Blood 0.0 Cells # Sodium Level 141 Potassium Level 5.5 H Chloride Level 94 L Carbon Dioxide Level 34 H Anion Gap 13 Blood Urea Nitrogen 69 H Creatinine 10.98 H Est Glomerular Filtrat 6 L Rate mL/min Glucose Level 33 #*L Calcium Level 8.5 Test 12/19/18 08:34 12/19/18 09:00 12/19/18 11:39 12/19/18 14:53 Bedside Glucose 81 81 84 White Blood Count 8.5 Red Blood Count 2.91 L Hemoglobin 8.4 L Hematocrit 27.1 L Mean Corpuscular Volume 93.1 Mean Corpuscular 28.9 L Hemoglobin Mean Corpuscular 31.0 L Hemoglobin Concent Red Cell Distribution 17.1 H Width Platelet Count 317 Mean Platelet Volume 10.2 Immature Granulocytes % 0.500 H Neutrophils % 78.5 H Lymphocytes % 11.2 L Monocytes % 8.3 Eosinophils % 0.7 Basophils % 0.8 Nucleated Red Blood 0.0 Cells % Immature Granulocytes # 0.040 H Neutrophils # 6.7 Lymphocytes # 1.0 Monocytes # 0.7 Eosinophils # 0.1 Basophils # 0.1 Nucleated Red Blood 0.0 Cells # Prothrombin Time 14.4 Prothrombin Time Ratio 1.1 INR International 1.11 Normalized Ratio Activated 29.6 Partial Thromboplast Time Exam/Review of Systems Exam Vitals Vital Signs Date Temp Pulse Resp B/P (MAP) Pulse Ox O2 O2 Flow FiO2 Time Delivery Rate 12/19/18 99.1 103 17 164/77 100 Room Air 14:00 (106) Intake and Output 12/18/18 12/18/18 12/19/18 1515:00 23:00 07:00 IntakeIntake Total 300 ml 720 ml 100 ml OutputOutput Total 200 ml BalanceBalance 300 ml 520 ml 100 ml Exam Constitutional: alert, oriented Respiratory: clear to auscultation Cardiovascular: nl pulses Gastrointestinal: soft, non-tender Musculoskeletal: nl extremities to inspection Extremities: normal pulses, other (Left foot diabetic ulcer, left upper extremity AV fistula) Neurological: nl mental status Results Results 24hrs Laboratory Tests Test 12/18/18 17:29 12/18/18 17:43 12/18/18 17:44 12/18/18 21:38 Bedside Glucose 89 87 55 L Hepatitis B Surface NEGATIVE Antigen Hepatitis B Surface POSITIVE H Antibody Test 12/18/18 22:06 12/18/18 22:28 12/19/18 07:06 12/19/18 08:14 Bedside Glucose 122 168 50 L White Blood Count 10.3 Red Blood Count 2.93 L Hemoglobin 8.3 L Hematocrit 26.7 L Mean Corpuscular Volume 91.1 Mean Corpuscular 28.3 L Hemoglobin Mean Corpuscular 31.1 L Hemoglobin Concent Red Cell Distribution 17.0 H Width Platelet Count 315 Mean Platelet Volume 10.7 H Immature Granulocytes % 0.400 Neutrophils % 78.8 H Lymphocytes % 11.4 L Monocytes % 8.2 Eosinophils % 0.5 Basophils % 0.7 Nucleated Red Blood 0.0 Cells % Immature Granulocytes # 0.040 H Neutrophils # 8.1 H Lymphocytes # 1.2 Monocytes # 0.8 Eosinophils # 0.1 Basophils # 0.1 Nucleated Red Blood 0.0 Cells # Sodium Level 141 Potassium Level 5.5 H Chloride Level 94 L Carbon Dioxide Level 34 H Anion Gap 13 Blood Urea Nitrogen 69 H Creatinine 10.98 H Est Glomerular Filtrat 6 L Rate mL/min Glucose Level 33 #*L Calcium Level 8.5 Test 12/19/18 08:34 12/19/18 09:00 12/19/18 11:39 12/19/18 14:53 Bedside Glucose 81 81 84 White Blood Count 8.5 Red Blood Count 2.91 L Hemoglobin 8.4 L Hematocrit 27.1 L Mean Corpuscular Volume 93.1 Mean Corpuscular 28.9 L Hemoglobin Mean Corpuscular 31.0 L Hemoglobin Concent Red Cell Distribution 17.1 H Width Platelet Count 317 Mean Platelet Volume 10.2 Immature Granulocytes % 0.500 H Neutrophils % 78.5 H Lymphocytes % 11.2 L Monocytes % 8.3 Eosinophils % 0.7 Basophils % 0.8 Nucleated Red Blood 0.0 Cells % Immature Granulocytes # 0.040 H Neutrophils # 6.7 Lymphocytes # 1.0 Monocytes # 0.7 Eosinophils # 0.1 Basophils # 0.1 Nucleated Red Blood 0.0 Cells # Prothrombin Time 14.4 Prothrombin Time Ratio 1.1 INR International 1.11 Normalized Ratio Activated 29.6 Partial Thromboplast Time Medications Medication Current Medications Vancomycin HCl (Vanco Iv Per Pharmacy) VANCOMYCIN PER PHARMACY PER PROTOCOL XX ; Start 12/18/18 at 09:30 Piperacillin Sod/ Tazobactam Sod 50 ml @ 200 mls/hr Q8H IVPB Last administered on 12/19/18 14:33; Admin Dose 200 MLS/HR; Start 12/18/18 at 14:00 Hydralazine HCl (Apresoline) 20 mg Q4 PRN IV HIGH BLOOD; Start 12/18/18 at 09:30 Acetaminophen (Tylenol Tab) 650 mg Q4H PRN PO MILD PAIN(1-3)OR ELEVATED TEMP; Start 12/18/18 at 09:30 Acetaminophen/ Hydrocodone Bitart ([place] (5/325)) 1 tab Q4H PRN PO MODERATE PAIN LEVEL 4-6 Last administered on 12/19/18 13:10; Admin Dose 1 TAB; Start 12/18/18 at 09:30 Insulin Aspart (Novolog Insulin Pen) NOVOLOG *MILD* ALGORITHM WITH MEALS BEDTIME SC Last administered on 12/18/18 12:10; Admin Dose 7 UNIT; Start 12/18/18 at 12:00 Amlodipine Besylate (Norvasc) 10 mg DAILY PO Last administered on 12/18/18 09:56; Admin Dose 10 MG; Start 12/18/18 at 09:30 Aspirin (Halfprin) 81 mg DAILY PO Last administered on 12/19/18 09:15; Admin Dose 81 MG; Start 12/18/18 at 09:30 Atorvastatin Calcium (Lipitor) 80 mg QHS PO Last administered on 12/18/18 21:39; Admin Dose 80 MG; Start 12/18/18 at 21:00 Baclofen (Lioresal) 10 mg TID PO Last administered on 12/19/18 14:33; Admin Dose 10 MG; Start 12/18/18 at 13:00 Clopidogrel Bisulfate (plaVIX) 75 mg DAILY PO Last administered on 12/19/18 09:15; Admin Dose 75 MG; Start 12/18/18 at 09:30 Multivit/Ca Carb/ B Cmplx/FA/Prenat (Amarilis-Christina) 1 tab DAILY PO Last administered on 12/19/18 09:16; Admin Dose 1 TAB; Start 12/18/18 at 09:30 Mirtazapine (Remeron) 15 mg HS PO Last administered on 12/18/18 21:39; Admin Dose 15 MG; Start 12/18/18 at 21:00 Paroxetine HCl (Paxil) 10 mg DAILY PO Last administered on 12/19/18at 09:16; Ad min Dose 10 MG; Start 12/18/18 at 09:30 Zinc Sulfate (Zinc Sulfate) 220 mg DAILY PO Last administered on 12/19/18at 09:15; Admin Dose 220 MG; Start 12/18/18 at 09:30 Sevelamer Carbonate (Renvela) 800 mg WITH MEALS PO Last administered on 12/19/18at 09:15; Admin Dose 800 MG; Start 12/18/18 at 11:30 Diagnostic Test (Pha) (Accu-Chek) 1 ea 02 XX ; Start 12/19/18 at 02:00 Insulin Glargine (Lantus) 9 units DAILY@2000 SC ; Start 12/18/18 at 20:00 Miscellaneous Information 1 ea NOTE XX ; Start 12/18/18 at 13:00 Glucose (Glutose) 15 gm Q15M PRN PO DECREASED GLUCOSE; Start 12/18/18 at 13:00 Glucose (Glutose) 22.5 gm Q15M PRN PO DECREASED GLUCOSE; Start 12/18/18 at 13:00 Dextrose (D50w Syringe) 25 ml Q15M PRN IV DECREASED GLUCOSE; Start 12/18/18 at 13:00 Dextrose (D50w Syringe) 50 ml Q15M PRN IV DECREASED GLUCOSE; Start 12/18/18 at 13:00 Glucagon (Glucagen) 1 mg Q15M PRN IM DECREASED GLUCOSE; Start 12/18/18 at 13:00 Glucose (Glutose) 15 gm Q15M PRN BUCCAL DECREASED GLUCOSE; Start 12/18/18 at 13:00 Insulin Aspart (Novolog Insulin Pen) 3 unit WITH MEALS SC Last administered on 12/18/18at 17:51; Admin Dose 3 UNIT; Start 12/18/18 at 13:30 Epoetin Josias-epbx (Retacrit (Esrd)) 8,000 unit MoWeFr@1700 SC Last administered on 12/18/18at 19:02; Admin Dose 8,000 UNIT; Start 12/18/18 at 17:00 Levofloxacin (Levaquin) 500 mg Q48H PO ; Start 12/20/18 at 08:00 Povidone Iodine (Povidone-Iodine) 1 applic BID TOP Last administered on 12/19/18at 09:16; Admin Dose 1 APPLIC; Start 12/18/18 at 21:00 Sodium Hypochlorite (Dakins Diluted (40)) 1 applic BID TP Last administered on 12/19/18at 09:16; Admin Dose 1 APPLIC; Start 12/18/18 at 21:00 Multi-Ingredient Ointment (Eucerin Cream) 1 applic DAILY TOP ; Start 12/19/18 at 10:28 Miscellaneous Information (*Rx Drug Level Order Reminder*) 1 0500 ONCE XX ; Start 12/20/18 at 05:00; Stop 12/20/18 at 05:01 NEL LARSEN Dec 19, 2018 16:00
[2018-12-19] MEDS: INSULIN GLARGINE [LANTus] (100 UNITS/ML) SYG SC SCH (20:00)
[2018-12-19] MEDS: GLUCOSE GEL 15 GRAM TUBE PO PRN ×5 (20:15→23:35)
[2018-12-19] MEDS ORDERED: HEPARIN 5,000 UNIT/1 ML VIAL SC SCH (21:00)
[2018-12-19] MEDS: ATORVASTATIN 80 MG TAB PO SCH (21:01)
[2018-12-19] MEDS: MIRTAZAPINE 15 MG TAB PO SCH (21:01)
[2018-12-19] MEDS: hydrALAzine 20 MG INJ IV PRN (21:06)
[2018-12-19] MEDS ORDERED: INSULIN GLARGINE [LANTus] (100 UNITS/ML) SYG SC ONE (22:00)
[2018-12-19] MEDS: DEXTROSE 5%-0.9% NACL 1,000 ML IV SCH (23:46)
[2018-12-20] VITALS (20 sets, daily range): BP systolic 138–190; BP diastolic 61–151; PULSE 95–108; RESP 16–20
[2018-12-20] MEDS: ACCU-CHEK XX SCH (02:00)
[2018-12-20] MEDS: PIPER-TAZO 2.25 GM (PMX) 50 ML IVPB SCH (05:47)
--- NOTE | 2018-12-20 06:19 | PN ---
Date/Time of Note Date/Time of Note DATE: 12/20/18 TIME: 06:13 Assessment/Plan VTE Prophylaxis Risk score (from [facility] [place])>0 risk: 4 SCD applied (from [facility] [place]): No SCD contraindicated: other Pharmacological prophylaxis: other Pharm contraindication: other Lines/Catheters IV Catheter Type ([facility] Saline Lock Urinary Cath still in place: No Assessment/Plan Assessment/Plan -Right foot ulcer with cellulitis. Continue broad-spectrum antibiotics. Dr. Giles is following in infection disease consultation. Dr. Ford following and podiatry consultation -Hemodialysis dependent end-stage renal disease. Dr. Agustin is following in nephrology consultation. -Diabetes mellitus type 2. Continue Lantus and NovoLog. -Hyperlipidemia, continue statin. -History of stroke, continue Plavix. Further recommendations based on clinical course. Plan of care discussed with Dr. Perez. Result Diagram: 12/20/18 0512 12/20/18 0512 Results 24hrs Laboratory Tests Test 12/19/18 07:06 12/19/18 08:14 12/19/18 08:34 12/19/18 09:00 White Blood Count 10.3 Red Blood Count 2.93 L Hemoglobin 8.3 L Hematocrit 26.7 L Mean Corpuscular Volume 91.1 Mean Corpuscular 28.3 L Hemoglobin Mean Corpuscular 31.1 L Hemoglobin Concent Red Cell Distribution 17.0 H Width Platelet Count 315 Mean Platelet Volume 10.7 H Immature Granulocytes % 0.400 Neutrophils % 78.8 H Lymphocytes % 11.4 L Monocytes % 8.2 Eosinophils % 0.5 Basophils % 0.7 Nucleated Red Blood 0.0 Cells % Immature Granulocytes # 0.040 H Neutrophils # 8.1 H Lymphocytes # 1.2 Monocytes # 0.8 Eosinophils # 0.1 Basophils # 0.1 Nucleated Red Blood 0.0 Cells # Sodium Level 141 Potassium Level 5.5 H Chloride Level 94 L Carbon Dioxide Level 34 H Anion Gap 13 Blood Urea Nitrogen 69 H Creatinine 10.98 H Est Glomerular Filtrat 6 L Rate mL/min Glucose Level 33 #*L Calcium Level 8.5 Bedside Glucose 50 L 81 81 Test 12/19/18 11:39 12/19/18 14:53 12/19/18 17:18 12/19/18 17:39 Bedside Glucose 84 47 *L 58 L White Blood Count 8.5 Red Blood Count 2.91 L Hemoglobin 8.4 L Hematocrit 27.1 L Mean Corpuscular Volume 93.1 Mean Corpuscular 28.9 L Hemoglobin Mean Corpuscular 31.0 L Hemoglobin Concent Red Cell Distribution 17.1 H Width Platelet Count 317 Mean Platelet Volume 10.2 Immature Granulocytes % 0.500 H Neutrophils % 78.5 H Lymphocytes % 11.2 L Monocytes % 8.3 Eosinophils % 0.7 Basophils % 0.8 Nucleated Red Blood 0.0 Cells % Immature Granulocytes # 0.040 H Neutrophils # 6.7 Lymphocytes # 1.0 Monocytes # 0.7 Eosinophils # 0.1 Basophils # 0.1 Nucleated Red Blood 0.0 Cells # Prothrombin Time 14.4 Prothrombin Time Ratio 1.1 INR International 1.11 Normalized Ratio Activated 29.6 Partial Thromboplast Time Sodium Level 141 Potassium Level 4.4 Chloride Level 99 Carbon Dioxide Level 33 H Anion Gap 9 Blood Urea Nitrogen 23 #H Creatinine 4.79 #H Est Glomerular Filtrat 15 L Rate mL/min Glucose Level 94 # Calcium Level 8.5 Total Bilirubin 0.7 Direct Bilirubin 0.00 Indirect Bilirubin 0.7 Aspartate Amino 27 Transf (AST/SGOT) Alanine 14 Aminotransferase (ALT/SG PT) Alkaline Phosphatase 87 Total Protein 7.1 # Albumin 3.7 Globulin 3.40 H Albumin/Globulin Ratio 1.08 Test 12/19/18 17:58 12/19/18 18:18 12/19/18 18:35 12/19/18 18:46 Bedside Glucose 71 76 84 Troponin I < 0.012 Test 12/19/18 18:59 12/19/18 20:09 12/19/18 20:36 12/19/18 20:48 Bedside Glucose 65 L 46 *L 52 L Glucose Level 45 #*L Test 12/19/18 21:10 12/19/18 21:37 12/19/18 22:10 12/19/18 22:34 Bedside Glucose 76 89 78 64 L Test 12/19/18 22:55 12/19/18 23:17 12/19/18 23:52 12/20/18 00:14 Bedside Glucose 42 *L 50 L 73 75 Test 12/20/18 00:32 12/20/18 00:39 12/20/18 00:46 12/20/18 05:12 Bedside Glucose 84 93 Glucose Level 78 120 # Troponin I < 0.012 White Blood Count 10.7 # Red Blood Count 3.20 L Hemoglobin 9.2 L Hematocrit 29.7 L Mean Corpuscular Volume 92.8 Mean Corpuscular 28.8 L Hemoglobin Mean Corpuscular 31.0 L Hemoglobin Concent Red Cell Distribution 17.1 H Width Platelet Count 344 Mean Platelet Volume 10.5 H Immature Granulocytes % 0.700 H Neutrophils % 81.2 H Lymphocytes % 9.2 L Monocytes % 8.0 Eosinophils % 0.3 Basophils % 0.6 Nucleated Red Blood 0.0 Cells % Immature Granulocytes # 0.070 H Neutrophils # 8.7 H Lymphocytes # 1.0 Monocytes # 0.9 Eosinophils # 0.0 Basophils # 0.1 Nucleated Red Blood 0.0 Cells # Sodium Level 139 Potassium Level 5.5 H Chloride Level 96 L Carbon Dioxide Level 33 H Anion Gap 10 Blood Urea Nitrogen 39 #H Creatinine 7.09 #H Est Glomerular Filtrat 10 L Rate mL/min Calcium Level 8.6 Subjective 24 Hr Interval Summary Free Text/Dictation K 5.5; HD today fu am labs Respiratory: no complaints Cardiovascular: no complaints Gastrointestinal: no complaints Musculoskeletal: bone/joint pain, restricted range of motion Exam/Review of Systems Exam Vitals Vital Signs Date Temp Pulse Resp B/P (MAP) Pulse Ox O2 O2 Flow FiO2 Time Delivery Rate 12/20/18 98.2 104 18 169/73 98 02:13 (105) 12/19/18 Room Air 14:00 Intake and Output 12/19/18 12/19/18 12/20/18 1515:00 23:00 07:00 IntakeIntake Total 950 ml 300 ml OutputOutput Total 2400 ml 200 ml BalanceBalance -2400 ml 750 ml 300 ml Constitutional: alert, well developed Psych: nl mood/affect Head: normocephalic Eyes: nl lids, nl sclera ENMT: nl external ears & nose Neck: non-tender Respiratory: clear to auscultation Cardiovascular: nl pulses, other (s1s2) Gastrointestinal: soft, non-tender Musculoskeletal: nl extremities to inspection Extremities: edema Results Results 24hrs Laboratory Tests Test 12/19/18 07:06 12/19/18 08:14 12/19/18 08:34 12/19/18 09:00 White Blood Count 10.3 Red Blood Count 2.93 L Hemoglobin 8.3 L Hematocrit 26.7 L Mean Corpuscular Volume 91.1 Mean Corpuscular 28.3 L Hemoglobin Mean Corpuscular 31.1 L Hemoglobin Concent Red Cell Distribution 17.0 H Width Platelet Count 315 Mean Platelet Volume 10.7 H Immature Granulocytes % 0.400 Neutrophils % 78.8 H Lymphocytes % 11.4 L Monocytes % 8.2 Eosinophils % 0.5 Basophils % 0.7 Nucleated Red Blood 0.0 Cells % Immature Granulocytes # 0.040 H Neutrophils # 8.1 H Lymphocytes # 1.2 Monocytes # 0.8 Eosinophils # 0.1 Basophils # 0.1 Nucleated Red Blood 0.0 Cells # Sodium Level 141 Potassium Level 5.5 H Chloride Level 94 L Carbon Dioxide Level 34 H Anion Gap 13 Blood Urea Nitrogen 69 H Creatinine 10.98 H Est Glomerular Filtrat 6 L Rate mL/min Glucose Level 33 #*L Calcium Level 8.5 Bedside Glucose 50 L 81 81 Test 12/19/18 11:39 12/19/18 14:53 12/19/18 17:18 12/19/18 17:39 Bedside Glucose 84 47 *L 58 L White Blood Count 8.5 Red Blood Count 2.91 L Hemoglobin 8.4 L Hematocrit 27.1 L Mean Corpuscular Volume 93.1 Mean Corpuscular 28.9 L Hemoglobin Mean Corpuscular 31.0 L Hemoglobin Concent Red Cell Distribution 17.1 H Width Platelet Count 317 Mean Platelet Volume 10.2 Immature Granulocytes % 0.500 H Neutrophils % 78.5 H Lymphocytes % 11.2 L Monocytes % 8.3 Eosinophils % 0.7 Basophils % 0.8 Nucleated Red Blood 0.0 Cells % Immature Granulocytes # 0.040 H Neutrophils # 6.7 Lymphocytes # 1.0 Monocytes # 0.7 Eosinophils # 0.1 Basophils # 0.1 Nucleated Red Blood 0.0 Cells # Prothrombin Time 14.4 Prothrombin Time Ratio 1.1 INR International 1.11 Normalized Ratio Activated 29.6 Partial Thromboplast Time Sodium Level 141 Potassium Level 4.4 Chloride Level 99 Carbon Dioxide Level 33 H Anion Gap 9 Blood Urea Nitrogen 23 #H Creatinine 4.79 #H Est Glomerular Filtrat 15 L Rate mL/min Glucose Level 94 # Calcium Level 8.5 Total Bilirubin 0.7 Direct Bilirubin 0.00 Indirect Bilirubin 0.7 Aspartate Amino 27 Transf (AST/SGOT) Alanine 14 Aminotransferase (ALT/SG PT) Alkaline Phosphatase 87 Total Protein 7.1 # Albumin 3.7 Globulin 3.40 H Albumin/Globulin Ratio 1.08 Test 12/19/18 17:58 12/19/18 18:18 12/19/18 18:35 12/19/18 18:46 Bedside Glucose 71 76 84 Troponin I < 0.012 Test 12/19/18 18:59 12/19/18 20:09 12/19/18 20:36 12/19/18 20:48 Bedside Glucose 65 L 46 *L 52 L Glucose Level 45 #*L Test 12/19/18 21:10 12/19/18 21:37 12/19/18 22:10 12/19/18 22:34 Bedside Glucose 76 89 78 64 L Test 12/19/18 22:55 12/19/18 23:17 12/19/18 23:52 12/20/18 00:14 Bedside Glucose 42 *L 50 L 73 75 Test 12/20/18 00:32 12/20/18 00:39 12/20/18 00:46 12/20/18 05:12 Bedside Glucose 84 93 Glucose Level 78 120 # Troponin I < 0.012 White Blood Count 10.7 # Red Blood Count 3.20 L Hemoglobin 9.2 L Hematocrit 29.7 L Mean Corpuscular Volume 92.8 Mean Corpuscular 28.8 L Hemoglobin Mean Corpuscular 31.0 L Hemoglobin Concent Red Cell Distribution 17.1 H Width Platelet Count 344 Mean Platelet Volume 10.5 H Immature Granulocytes % 0.700 H Neutrophils % 81.2 H Lymphocytes % 9.2 L Monocytes % 8.0 Eosinophils % 0.3 Basophils % 0.6 Nucleated Red Blood 0.0 Cells % Immature Granulocytes # 0.070 H Neutrophils # 8.7 H Lymphocytes # 1.0 Monocytes # 0.9 Eosinophils # 0.0 Basophils # 0.1 Nucleated Red Blood 0.0 Cells # Sodium Level 139 Potassium Level 5.5 H Chloride Level 96 L Carbon Dioxide Level 33 H Anion Gap 10 Blood Urea Nitrogen 39 #H Creatinine 7.09 #H Est Glomerular Filtrat 10 L Rate mL/min Calcium Level 8.6 Medications Medication Current Medications Vancomycin HCl (Vanco Iv Per Pharmacy) VANCOMYCIN PER PHARMACY PER PROTOCOL XX ; Start 12/18/18 at 09:30 Piperacillin Sod/ Tazobactam Sod 50 ml @ 200 mls/hr Q8H IVPB Last administered on 12/20/18 05:47; Admin Dose 200 MLS/HR; Start 12/18/18 at 14:00 Hydralazine HCl (Apresoline) 20 mg Q4 PRN IV HIGH BLOOD Last administered on 12/19/18 21:06; Admin Dose 20 MG; Start 12/18/18 at 09:30 Acetaminophen (Tylenol Tab) 650 mg Q4H PRN PO MILD PAIN(1-3)OR ELEVATED TEMP; Start 12/18/18 at 09:30 Acetaminophen/ Hydrocodone Bitart (Sunburst (5/325)) 1 tab Q4H PRN PO MODERATE PAIN LEVEL 4-6 Last administered on 12/19/18 21:50; Admin Dose 1 TAB; Start 12/18/18 at 09:30 Insulin Aspart (Novolog Insulin Pen) NOVOLOG *MILD* ALGORITHM WITH MEALS BEDTIME SC Last administered on 12/18/18 12:10; Admin Dose 7 UNIT; Start 12/18/18 at 12:00 Amlodipine Besylate (Norvasc) 10 mg DAILY PO Last administered on 12/18/18 09:56; Admin Dose 10 MG; Start 12/18/18 at 09:30 Aspirin (Halfprin) 81 mg DAILY PO Last administered on 12/19/18 09:15; Admin Dose 81 MG; Start 12/18/18 at 09:30 Atorvastatin Calcium (Lipitor) 80 mg QHS PO Last administered on 12/19/18 21:01; Admin Dose 80 MG; Start 12/18/18 at 21:00 Baclofen (Lioresal) 10 mg TID PO Last administered on 12/19/18 21:01; Admin Dose 10 MG; Start 12/18/18 at 13:00 Clopidogrel Bisulfate (plaVIX) 75 mg DAILY PO Last administered on 12/19/18 09:15; Admin Dose 75 MG; Start 12/18/18 at 09:30 Multivit/Ca Carb/ B Cmplx/FA/Prenat (Amarilis-Christina) 1 tab DAILY PO Last administered on 12/19/18 09:16; Admin Dose 1 TAB; Start 12/18/18 at 09:30 Mirtazapine (Remeron) 15 mg HS PO Last administered on 6/6/19at 21:01; Admin Do se 15 MG; Start 12/18/18 at 21:00 Paroxetine HCl (Paxil) 10 mg DAILY PO Last administered on 12/19/18 09:16; Admin Dose 10 MG; Start 12/18/18 at 09:30 Zinc Sulfate (Zinc Sulfate) 220 mg DAILY PO Last administered on 12/19/18 09:15; Admin Dose 220 MG; Start 12/18/18 at 09:30 Sevelamer Carbonate (Renvela) 800 mg WITH MEALS PO Last administered on 12/19/18 17:26; Admin Dose 800 MG; Start 12/18/18 at 11:30 Diagnostic Test (Pha) (Accu-Chek) 1 ea 02 XX ; Start 12/19/18 at 02:00 Miscellaneous Information 1 ea NOTE XX ; Start 12/18/18 at 13:00 Glucose (Glutose) 15 gm Q15M PRN PO DECREASED GLUCOSE Last administered on 12/19/18at 22:39; Admin Dose 15 GM; Start 12/18/18 at 13:00 Glucose (Glutose) 22.5 gm Q15M PRN PO DECREASED GLUCOSE Last administered on 12/19/18at 23:35; Admin Dose 22.5 GM; Start 12/18/18 at 13:00 Dextrose (D50w Syringe) 25 ml Q15M PRN IV DECREASED GLUCOSE; Start 12/18/18 at 13:00 Dextrose (D50w Syringe) 50 ml Q15M PRN IV DECREASED GLUCOSE; Start 12/18/18 at 13:00 Glucagon (Glucagen) 1 mg Q15M PRN IM DECREASED GLUCOSE; Start 12/18/18 at 13:00 Glucose (Glutose) 15 gm Q15M PRN BUCCAL DECREASED GLUCOSE; Start 12/18/18 at 13:00 Insulin Aspart (Novolog Insulin Pen) 3 unit WITH MEALS SC Last administered on 12/18/18at 17:51; Admin Dose 3 UNIT; Start 12/18/18 at 13:30 Epoetin Josias-epbx (Retacrit (Esrd)) 8,000 unit MoWeFr@1700 SC Last administered on 12/18/18at 19:02; Admin Dose 8,000 UNIT; Start 12/18/18 at 17:00 Levofloxacin (Levaquin) 500 mg Q48H PO ; Start 12/20/18 at 08:00 Povidone Iodine (Povidone-Iodine) 1 applic BID TOP Last administered on 12/19/18at 22:50; Admin Dose 1 APPLIC; Start 12/18/18 at 21:00 Sodium Hypochlorite (Dakins Diluted ()) 1 applic BID TP Last administered on 12/19/18at 22:49; Admin Dose 1 APPLIC; Start 12/18/18 at 21:00 Multi-Ingredient Ointment (Eucerin Cream) 1 applic DAILY TOP ; Start 12/19/18 at 10:28 Insulin Glargine (Lantus) 7 units DAILY@2000 SC ; Start 12/19/18 at 20:00 Dextrose/Sodium Chloride 1,000 ml @ 50 mls/hr Q20H IV Last administered on 12/19/18at 23:46; Admin Dose 50 MLS/HR; Start 12/19/18 at 23:30 ADRIANA JUSTICE Dec 20, 2018 06:19
--- NOTE | 2018-12-20 06:58 | CONS ---
DATE OF ADMISSION: 12/18/2018 DATE OF CONSULTATION: 12/19/2018 TYPE OF CONSULTATION: Pulmonary. REASON FOR CONSULTATION: Preoperative evaluation. REQUESTING PHYSICIAN: Jenaro Perez MD HISTORY OF PRESENT ILLNESS: Mr. Aparicio is a 63-year-old male with history of prior stroke, diabetes, end-stage renal disease on hemodialysis, dyslipidemia, peripheral arterial disease with lower extremity ulcers, who was sent from his PMD's office with a right foot ulcer nonhealing on the second toe and cellulitis. Upon arrival, temperature 97.3, blood pressure 160/74, pulse 90, respirations 20, satting 100%. The patient's labs revealed white count 9.0, heme 10.0, platelet count 379. Sodium 141, potassium 5.5, creatinine of 10.9, BUN 69, glucose of 33, calcium 8.5. The patient underwent a foot x-ray that revealed unremarkable right foot radiographs and unremarkable left foot radiographs. Patient does not have the most current chart for my review at this time. The patient since admit has been initiated on antibiotic therapy with levofloxacin and Zosyn, has been placed on aspirin and Plavix with Norvasc for blood pressure control and is being seen by nephrology and underwent hemodialysis, being followed by infectious disease service and has undergone podiatry consult with a concern for possible need to undergo further investigation and possible need for amputation. PAST MEDICAL HISTORY: Due to these findings, preoperative evaluation has been required. The patient at this time denies chest pain, shortness of breath. As above in HPI. MEDICATIONS CURRENTLY IN HOSPITAL: 1. Levofloxacin. 2. Lipitor. 4. Mirtazapine. 5. Lantus. 6. Zosyn. 7. Insulin. 8. Vancomycin. 9. Norvasc 10 mg daily. 10. Aspirin 81 mg daily. 11. Plavix 75 daily. 12. Paxil 10 mg daily. 13. Zinc sulfate 20 mg daily. ALLERGIES: CLINDAMYCIN. SOCIAL HISTORY: No current tobacco, ETOH or illicit drug use. FAMILY HISTORY: No recent cardiac or early CAD. REVIEW OF SYSTEMS: As above in HPI. CONSTITUTIONAL: No fevers, chills. PULMONARY: No current shortness of breath. CARDIOVASCULAR: No current chest pain. GASTROINTESTINAL: No vomiting. GENITOURINARY: No hematuria. MUSCULOSKELETAL: Nonhealing lower extremity ulcers to the feet bilaterally. LABORATORIES: As above in HPI with most recently from today, white count 10.3, hemoglobin 8.3, platelet count 315. Sodium 141, potassium 5.5, creatinine of 10.9, BUN 69, glucose 33 and on followup 84 most recently. IMAGING STUDIES: As above in HPI. No further imaging studies for my review at this time. ELECTROCARDIOGRAM: No electrocardiograms for my review at this time. IMPRESSION: 1. Preoperative evaluation prior to possible toe amputation and possible need for further evaluation. 2. Hypertension, currently elevated but had antihypertensives held today for hemodialysis. 3. History of dyslipidemia. 4. Peripheral arterial disease with nonhealing lower extremity ulcers. 5. Nonhealing lower extremity ulcers. 6. Cellulitis. 7. Diabetes mellitus. 8. Psychiatric disorder. RECOMMENDATIONS: 1. At this time, would obtain a baseline EKG and repeat EKG in the morning to assess for any abnormalities or changes. 2. Get troponins q.6h. x3 to assure the patient has not had any recent coronary syndrome inanticipation of upcoming need for surgery. 3. Check a 2D echo, assess the patient's baseline ejection fraction, wall motion, for any major abnormalities. 4. Continue the patient's baseline aspirin and Plavix at this time. 5. Would continue the patient's Norvasc, following blood pressure after receiving it. 6. Continue the patient's statin therapy and adjust it according to a fasting lipid panel to be checked. 7. Continue local wound care and would follow the patient's blood sugars closely. 8. Continue patient's antibiotics and follow up all culture data. Thank you for allowing me to take part in the care of this patient. I will continue to follow closely with you with further recommendations pertaining to the surgical candidacy of this patient after completion of above studies including troponin analysis, EKG analysis and 2D echo. Dictated By: JUWAN ALAS/AMADEO Conf#: [id number] DID#: [id number] CC: JENARO PEREZ MD;*EndCC* MTDD
[2018-12-20] MEDS: SEVELAMER CARBONATE 800 MG TABLET PO SCH ×3 (07:35→17:35)
[2018-12-20] MEDS: INSULIN ASPART [NOVOLOG] 3 ML PEN SC SCH ×7 (07:35→20:56)
[2018-12-20] MEDS: LEVOFLOXACIN 500 MG TAB PO SCH (08:16)
[2018-12-20] MEDS: MULTIVIT/CA CARB/B CMPLX/FA TAB PO SCH ×2 (09:00→12:59)
[2018-12-20] MEDS: ZINC SULFATE 220 MG CAP PO SCH ×2 (09:00→12:59)
[2018-12-20] MEDS: PAROXETINE 10 MG TAB PO SCH (09:01)
[2018-12-20] MEDS: AMLODIPINE 10 MG TAB PO SCH (09:01)
[2018-12-20] MEDS: ASPIRIN (EC) 81 MG TAB PO SCH (09:01)
[2018-12-20] MEDS: CLOPIDOGREL 75 MG TAB PO SCH (09:01)
[2018-12-20] MEDS: BACLOFEN 10 MG TAB PO SCH ×3 (09:01→20:57)
[2018-12-20] MEDS ORDERED: VANCOMYCIN 1 GM 250 ML IVPB SCH (10:00)
[2018-12-20] MEDS: DAKINS 0.0125%(1/40) 473 ML SOLUTION TP SCH ×2 (10:18→21:03)
[2018-12-20] MEDS: POVIDONE IODINE 10% 28.4 GM OINT TOP SCH ×2 (10:18→21:04)
--- NOTE | 2018-12-20 11:24 | PN ---
DATE: 12/20/2018 SUBJECTIVE: The patient is stable, no events overnight. OBJECTIVE: VITAL SIGNS: Blood pressure is 169/73, respiration 18, pulse 104, temperature 98.2. HEENT: Head is normocephalic. NECK: Supple. HEART: Regular rate. LUNGS: Show diminished breath sounds at base. ABDOMEN: Soft, nontender to palpation without rebound or guarding. EXTREMITIES: Negative for clubbing, cyanosis, no edema. DERMATOLOGIC: No rashes. MUSCULOSKELETAL: No joint effusion. NEUROLOGIC: No change in exam. MEDICATIONS: Reviewed. LABORATORY DATA: Has been reviewed. ASSESSMENT AND PLAN: 1. End-stage renal disease. Plan is for hemodialysis today. We will dialyze 3 hours 2k bath, calci um 2.5. 2. Hypokalemia. Continue dialysis on a low potassium bath. 3. Anemia. Continue to monitor hemoglobin and hematocrit levels. Continue Epogen. 4. Mineral bone disorder, monitor calcium and phosphorus levels. 5. Diabetic foot ulcer. Continue current medical regimen. Follow up with podiatry. 6. Diabetes. Continue current insulin regimen. 7. Dyslipidemia. Continue statin therapy. 8. History of cerebrovascular accident. Continue medical management. Dictated By: RUFUS CHERY/NTS Conf#: [id number] DID#: [id number] CC: JACKI ALRA MD;*EndCC*
[2018-12-20] MEDS: EUCERIN 113 GM CR TOP SCH (11:39)
--- NOTE | 2018-12-20 15:58 | CONS ---
DATE OF ADMISSION: 12/18/2018 DATE OF CONSULTATION: 12/20/2018 REFERRING PHYSICIAN: Cassius Bay DPM REASON FOR CONSULTATION: Evaluate right 2nd toe gangrene. HISTORY OF PRESENT ILLNESS: This is a 63-year-old diabetic hypertensive gentleman with end-stage shea al disease, has been on dialysis for several years. He has a left upper arm AV graft that I created and revised several times. He has had an infection in both of his 2nd toes. I did peripheral inter ventions on both of his lower extremities over the last several months, most recently the right lower extremity I treated about 2 to 3 weeks ago. He has very diffuse calcified arteries but he has strai ght line flow down into the foot through the posterior tibial artery despite the fact that the pulse is not palpable. It is basically optimized. I had spoken to his helicopter crew chief after the intervention, Dr. Ford and I asked her to go ahead and take off the toe. ____ but apparently Dr. Bay saw her and called me. I think Dr. Ford will be seeing him as well on this admission and planned for righ t 2nd toe amputation. PAST MEDICAL HISTORY: Significant for end-stage renal disease, diabetes, hypertension. He has had a stroke. He has been on dialysis for several years. He has peripheral arterial disease. PAST SURGICAL HISTORY: Significant for several left arm AV access procedures. He has had cataract s urgery. He has had bilateral lower extremity arterial percutaneous interventions. SOCIAL HISTORY: He is a former smoker. I believe he is originally from [place]. He is . His who is usually brings him to his appointments. I have seen her fairly frequently. He does not drink or use any illicit drugs. He is able to walk with some difficulty after the stroke. MEDICATIONS: Consist of: 1. Vancomycin. 2. Zosyn. 3. Apresoline. 4. [place]. 5. Insulin. 6. Norvasc. 7. Aspirin. 8. Lipitor. 9. Baclofen. 10. Plavix. 11. Amarilis-Christina. 12. Levaquin. 13. Remeron. 14. Paxil. 15. Renagel. 16. Zinc sulfate. 17. Renvela. ALLERGIES: HE HAS NO KNOWN DRUG ALLERGIES. FAMILY HISTORY: Noncontributory. REVIEW OF SYSTEMS: He currently is disoriented. He is not in his usual self. He is responding to c ommands, but he is sleepy, which is his baseline is. He is more I think disoriented to date and one made initially to touch him and I had to explain to him of whom it was and why would he check his fis sharif. He denies any chest pain or shortness of breath. No fevers, no chills, no recent weight gain or weight loss. PHYSICAL EXAMINATION: GENERAL: He is an elderly gentleman. He is in no acute distress. VITAL SIGNS: He has been afebrile. His blood pressure is 158/65, heart rate 98, respiratory rate 16 . He is 99% sat on room air. PERIPHERAL VASCULAR: He has 2+ carotid pulses bilaterally. He has left upper arm AV graft that has a good thrill. There is no ulceration. There is no bleeding. He has no arm edema. LUNGS: Clear. HEART: Regular rate and rhythm. ABDOMEN: Soft, nontender, nondistended. EXTREMITIES: He has got 2+ femoral pulses bilaterally. I do not feel popliteal, DP or PT pulses in either foot. There are bilateral 2nd toe ulcers. On the right, interphalangeal joint is exposed. I can see the bone just sitting there. I do not see any pus. No erythema or odor. Left 2nd toe ulce r actually looks quite good. There is kind of dry callus over it. I removed. It looks like maybe c lose. There is no drainage, no erythema. It is actually improved a lot since I saw him several week s ago. LABORATORY VALUES: Showed slightly elevated white count of 10 and otherwise just normal labs for talia lysis patient. IMPRESSION: Bilateral 2nd toe ulcerations. The left foot looks quite good. I think it may be heale d. The right toe ____. The joint is exposed. The bone is exposed. He is optimized currently from a vascular standpoint after recent arterial intervention, so he is ready to go from 2nd toe amputatio n from my standpoint. I am not sure if Dr. Bay or Dr. Ford are joining the procedure. Otherwi se he is cleared and I will keep an eye on him. His fistula has got a good thrill and has been worki ng well. He has had multiple problems with it in the past but currently has a good thrill and it see ms to be functioning nicely. Dictated By: JUWAN WALTERS/AMADEO Conf#: [id number] DID#: [id number] CC: MELANIA PIRES MD; CASSIUS BAY DPM; RUFUS VEGA DO; HOMAR DAVIDSON MD; JACKI Briones MD; BLAINE FORD DPM;*EndCC*
--- NOTE | 2018-12-20 16:02 | CONS ---
Assessment/Plan Assessment/Plan Hospital Course (Demo Recall) IMPRESSION: 1. Preoperative evaluation prior to possible toe amputation and possible need for further evaluation.-neg trop x 3 2. Hypertension, currently elevated but had antihypertensives held today for hemodialysis. 3. History of dyslipidemia. 4. Peripheral arterial disease with nonhealing lower extremity ulcers. 5. Nonhealing lower extremity ulcers. 6. Cellulitis. 7. Diabetes mellitus. 8. Psychiatric disorder. Recc: -Tele -serial ecg's -start BB tomimprove BP control -Coontinue asa/plavix -Continue statin -Continue abx's and f/u cx dta -Continue local wound care -Will f/u echo Consultation Date/Type/Reason Admit Date/Time Dec 18, 2018 at 04:02 Initial Consult Date 12/18/18 Type of Consult Cardiology Reason for Consultation preop Requesting Provider: JACKI LARA MD Date/Time of Note DATE: 12/20/18 TIME: 15:58 Exam/Review of Systems Vital Signs Vitals Vital Signs Date Temp Pulse Resp B/P (MAP) Pulse Ox O2 O2 Flow FiO2 Time Delivery Rate 12/20/18 99.0 100 16 157/72 99 Room Air 14:29 (100) Intake and Output 12/19/18 12/19/18 12/20/18 1515:00 23:00 07:00 IntakeIntake Total 950 ml 350 ml OutputOutput Total 2400 ml 200 ml BalanceBalance -2400 ml 750 ml 350 ml Exam Exam Review of Systems: CONSTITUTIONAL: No fevers, chills. PULMONARY: No sob CARDIOVASCULAR: No chest pain/palpitations GASTROINTESTINAL: No nausea/vomiting. GENITOURINARY: No hematuria/dysuria. MUSCULOSKELETAL: No myagias/arthalgias. PSYCHIATRIC: The patient denies depression. NEUROLOGIC: No weakness Constitutional: alert Psych: no complaints Head: normocephalic ENMT: mucosa pink and moist Neck: supple, jvd Respiratory: diminished breath sounds (at bases/B) Cardiovascular: regular rate and rhythm Gastrointestinal: soft, non-tender Musculoskeletal: muscle weakness (gerneralized weakness) Extremities: other (covered by dressing) Neurological: other (No focal deficits) Labs Result Diagram: 12/20/18 0512 12/20/18 0512 Results 24hrs Laboratory Tests Test 12/19/18 17:18 12/19/18 17:39 12/19/18 17:58 12/19/18 18:18 Bedside Glucose 47 *L 58 L 71 76 Test 12/19/18 18:35 12/19/18 18:46 12/19/18 18:59 12/19/18 20:09 Bedside Glucose 84 65 L 46 *L Troponin I < 0.012 Test 12/19/18 20:36 12/19/18 20:48 12/19/18 21:10 12/19/18 21:37 Bedside Glucose 52 L 76 89 Glucose Level 45 #*L Test 12/19/18 22:10 12/19/18 22:34 12/19/18 22:55 12/19/18 23:17 Bedside Glucose 78 64 L 42 *L 50 L Test 12/19/18 23:52 12/20/18 00:14 12/20/18 00:32 12/20/18 00:39 Bedside Glucose 73 75 84 Glucose Level 78 Troponin I < 0.012 Test 12/20/18 00:46 12/20/18 05:12 12/20/18 08:14 12/20/18 11:33 Bedside Glucose 93 269 H 132 White Blood Count 10.7 # Red Blood Count 3.20 L Hemoglobin 9.2 L Hematocrit 29.7 L Mean Corpuscular Volume 92.8 Mean Corpuscular 28.8 L Hemoglobin Mean Corpuscular 31.0 L Hemoglobin Concent Red Cell Distribution 17.1 H Width Platelet Count 344 Mean Platelet Volume 10.5 H Immature Granulocytes % 0.700 H Neutrophils % 81.2 H Lymphocytes % 9.2 L Monocytes % 8.0 Eosinophils % 0.3 Basophils % 0.6 Nucleated Red Blood 0.0 Cells % Immature Granulocytes # 0.070 H Neutrophils # 8.7 H Lymphocytes # 1.0 Monocytes # 0.9 Eosinophils # 0.0 Basophils # 0.1 Nucleated Red Blood 0.0 Cells # Sodium Level 139 Potassium Level 5.5 H Chloride Level 96 L Carbon Dioxide Level 33 H Anion Gap 10 Blood Urea Nitrogen 39 #H Creatinine 7.09 #H Est Glomerular Filtrat 10 L Rate mL/min Glucose Level 120 # Calcium Level 8.6 Troponin I < 0.012 Triglycerides Level 46 Cholesterol Level 89 L LDL Cholesterol, 38 Calculated HDL Cholesterol 42 Cholesterol/HDL Ratio 2.1 Random Vancomycin Level 8.4 Medications Medications Current Medications Vancomycin HCl (Vanco Iv Per Pharmacy) VANCOMYCIN PER PHARMACY PER PROTOCOL XX ; Start 12/18/18 at 09:30 Hydralazine HCl (Apresoline) 20 mg Q4 PRN IV HIGH BLOOD Last administered on 12/19/18 21:06; Admin Dose 20 MG; Start 12/18/18 at 09:30 Acetaminophen (Tylenol Tab) 650 mg Q4H PRN PO MILD PAIN(1-3)OR ELEVATED TEMP; Start 12/18/18 at 09:30 Acetaminophen/ Hydrocodone Bitart ([place] (5/325)) 1 tab Q4H PRN PO MODERATE PAIN LEVEL 4-6 Last administered on 12/19/18 21:50; Admin Dose 1 TAB; Start 12/18/18 at 09:30 Insulin Aspart (Novolog Insulin Pen) NOVOLOG *MILD* ALGORITHM WITH MEALS BEDTIME SC Last administered on 12/20/18 08:20; Admin Dose 4 UNIT; Start 12/18/18 at 12:00 Amlodipine Besylate (Norvasc) 10 mg DAILY PO Last administered on 12/20/18 09:01; Admin Dose 10 MG; Start 12/18/18 at 09:30 Aspirin (Halfprin) 81 mg DAILY PO Last administered on 12/20/18 09:01; Admin Dose 81 MG; Start 12/18/18 at 09:30 Atorvastatin Calcium (Lipitor) 80 mg QHS PO Last administered on 12/19/18 21:01; Admin Dose 80 MG; Start 12/18/18 at 21:00 Baclofen (Lioresal) 10 mg TID PO Last administered on 12/20/18 12:59; Admin Dose 10 MG; Start 12/18/18 at 13:00 Clopidogrel Bisulfate (plaVIX) 75 mg DAILY PO Last administered on 12/20/18 09:01; Admin Dose 75 MG; Start 12/18/18 at 09:30 Multivit/Ca Carb/ B Cmplx/FA/Prenat (Amarilis-Christina) 1 tab DAILY PO Last administered on 12/20/18 12:59; Admin Dose 1 TAB; Start 12/18/18 at 09:30 Mirtazapine (Remeron) 15 mg HS PO Last administered on 12/19/18 21:01; Admin Dose 15 MG; Start 12/18/18 at 21:00 Paroxetine HCl (Paxil) 10 mg DAILY PO Last administered on 12/20/18 09:01; Admin Dose 10 MG; Start 12/18/18 at 09:30 Zinc Sulfate (Zinc Sulfate) 220 mg DAILY PO Last administered on 12/20/18 12:59; Admin Dose 220 MG; Start 12/18/18 at 09:30 Sevelamer Carbonate (Renvela) 800 mg WITH MEALS PO Last administered on 12/19/18 17:26; Admin Dose 800 MG; Start 12/18/18 at 11:30 Diagnostic Test (Pha) (Accu-Chek) 1 ea 02 XX ; Start 12/19/18 at 02:00 Miscellaneous Information 1 ea NOTE XX ; Start 12/18/18 at 13:00 Glucose (Glutose) 15 gm Q15M PRN PO DECREASED GLUCOSE Last administered on 12/19/18 22:39; Admin Dose 15 GM; Start 12/18/18 at 13:00 Glucose (Glutose) 22.5 gm Q15M PRN PO DECREASED GLUCOSE Last administered on 12/19/18at 23:35; Admin Dose 22.5 GM; Start 12/18/18 at 13:00 Dextrose (D50w Syringe) 25 ml Q15M PRN IV DECREASED GLUCOSE; Start 12/18/18 at 13:00 Dextrose (D50w Syringe) 50 ml Q15M PRN IV DECREASED GLUCOSE; Start 12/18/18 at 13:00 Glucagon (Glucagen) 1 mg Q15M PRN IM DECREASED GLUCOSE; Start 12/18/18 at 13:00 Glucose (Glutose) 15 gm Q15M PRN BUCCAL DECREASED GLUCOSE; Start 12/18/18 at 13:00 Insulin Aspart (Novolog Insulin Pen) 3 unit WITH MEALS SC Last administered on 12/18/18at 17:51; Admin Dose 3 UNIT; Start 12/18/18 at 13:30 Epoetin Josias-epbx (Retacrit (Esrd)) 8,000 unit MoWeFr@1700 SC Last administered on 12/18/18 19:02; Admin Dose 8,000 UNIT; Start 12/18/18 at 17:00 Levofloxacin (Levaquin) 500 mg Q48H PO Last administered on 12/20/18 08:16; Admin Dose 500 MG; Start 12/20/18 at 08:00 Povidone Iodine (Povidone-Iodine) 1 applic BID TOP Last administered on 12/20/18 10:18; Admin Dose 1 APPLIC; Start 12/18/18 at 21:00 Sodium Hypochlorite (Dakins Diluted (40)) 1 applic BID TP Last administered on 12/20/18 10:18; Admin Dose 1 APPLIC; Start 12/18/18 at 21:00 Multi-Ingredient Ointment (Eucerin Cream) 1 applic DAILY TOP Last administered on 12/20/18at 11:39; Admin Dose 1 APPLIC; Start 12/19/18 at 10:28 Insulin Glargine (Lantus) 7 units DAILY@2000 SC ; Start 12/19/18 at 20:00 Dextrose/Sodium Chloride 1,000 ml @ 50 mls/hr Q20H IV Last administered on 12/19/18at 23:46; Admin Dose 50 MLS/HR; Start 12/19/18 at 23:30 Vancomycin HCl 250 ml @ 125 mls/hr ONCE IVPB Last administered on 12/20/18at 11:39; Admin Dose 125 MLS/HR; Start 12/20/18 at 10:00; Stop 12/20/18 at 18:00 JUWAN TAYLOR Dec 20, 2018 16:02
--- NOTE | 2018-12-20 17:18 | RADRPT ---
Echocardiogram Report Patient Name: CAROLINA BACONPatient ID: [id number] : 1955 (63y 4m)Study Date: 12/19/2018 2:56:51 PM Gender: MAccession #: [id number] Tech: Bon Hernandez [facility] Location: [id number]- Ref.Physician: NEL LARSEN Height(Cm): BSA: Weight(Kg): Quality: AdequateOrder Physician: NEL LARSEN Account #: Procedures: Echocardiographic Report: Transthoracic echocardiogram with complete 2D, M-Mode, and doppler examination. Indications: Pre-op clearance. Measurements: 2D/M Mode Doppler Measurement Value Normal Range Measurement Value Normal Range LVIDd 2D 4.5 [ 4.2 - 5.8 ] cm AV Peak Sergio 1.3 [ 100.0 - 170.0 ] cm/sec LVIDs 2D 2.9 [ 2.5 - 4.0 ] cm AV Peak PG 7.0 [ 2.0 - 9.0 ] mmHg LVPWd 2D 0.9 [ 0.6 - 1.0 ] cm LVOT Peak Sergio 1.0 [ 70.0 - 110.0 ] cm/sec IVSd 2D 0.9 [ 0.6 - 1.0 ] cm LVOT Peak PG 4.0 [ 2.0 - 6.0 ] mmHg AoR Diam 2D 3.0 [ 2.6 - 3.4 ] cm MV E Peak Sergio 0.7 [ 60.0 - 130.0 ] cm/sec EDV 2D 90.5 [ 62.0 - 150.0 ] ml MV A Peak Sergio 1.0 [ 100.0 - 120.0 ] cm/sec ESV 2D 32.2 [ 21.0 - 61.0 ] ml MV E/A 0.7 [ 0.8 - 1.5 ] ratio EF 2D 64.4 [ 52.0 - 72.0 ] percent MV Decel Time 106 [ 104 - 258 ] msec LA Dimen 2D 3.5 [ 3.0 - 4.0 ] cm Lat E` Sergio 0.1 [ 10.0 - 15.0 ] cm/sec Lateral E/E` 7.7 [ 1.0 - 2.0 ] ratio MV E/A 0.7 [ 0.8 - 1.5 ] ratio RA Pressure 3.0 mmHg Findings: Left Ventricle: Normal left ventricular systolic function. Normal left ventricular cavity size. Normal left ventricular wall thickness. Ejection fraction is visually estimated at 60 %. Tissue Doppler/Mitral Doppler indices are consistent with impaired relaxation (Stage I diastolic dysfunction). Right Ventricle: Normal right ventricular size. Normal right ventricular systolic function. Left Atrium: The left atrium is normal in size. Right Atrium: The right atrium is normal in size. Mitral Valve: Mild mitral leaflet calcification. Mild mitral annular calcification. Trace mitral regurgitation. Aortic Valve: No hemodynamically significant aortic stenosis by doppler. Aortic cusps appear mildly calcified. Tricuspid Valve: Normal appearance of the tricuspid valve. Unable to obtain RVSP due to minimal presence of tricuspid regurgitation. Pericardium: Normal pericardium with no significant pericardial effusion. Aorta: Normal aortic root. IVC: Normal size and normal respiratory collapse consistent with normal right atrial pressure. Conclusions: Normal left ventricular systolic function. Normal left ventricular cavity size. Normal left ventricular wall thickness. Ejection fraction is visually estimated at 60 %. Tissue Doppler/Mitral Doppler indices are consistent with impaired relaxation (Stage I diastolic dysfunction). Mild mitral leaflet calcification. Mild mitral annular calcification. Trace mitral regurgitation. Normal appearance of the tricuspid valve. Unable to obtain RVSP due to minimal presence of tricuspid regurgitation. Electronically Signed By: Franco Callaway 2018-12-20 17:17:40 PDT
--- NOTE | 2018-12-20 17:24 | RADRPT ---
Vent Rate: 107 bpm RR Interval: [address] Interval: 179 msec QRS Duration: 72 msec QT Interval: 361 msec QTC Interval: 482 msec P-R-T [place]: 80 - 45 - 74 degrees Sinus tachycardia...rate> 99 Electronically Signed By: Franco Callaway
[2018-12-20] MEDS: EPOETIN ALFA-EPBX (ESRD) 4,000 UNIT/ML VIAL SC SCH (17:31)
[2018-12-20] MEDS: HYDROCODONE/APAP (5/325) TAB PO PRN (18:00)
--- NOTE | 2018-12-20 18:46 | CONS ---
Assessment/Plan Assessment/Plan Hospital Course (Demo Recall) 1200 No acute events, looks comfortable no fevers overnight Indwelling's: Left upper extremity AV fistula Chest x-ray revealed no acute cardiopulmonary disease Allergy: Clindamycin Antimicrobials: Levofloxacin, Vanco Physical examination: Well-developed well-nourished elderly -Iraqi male in who is in no distress. Head atraumatic normocephalic neck is supple chest rise symmetrical breath sounds diminished bases. Heart: S1-S2. Abdomen soft bowel sounds present. Extremities with bilateral lower extremities dressing intact Assessment: 1. Bilateral lower extremities wounds with cellulitis and osteomyelitis 2. End-stage renal disease 3. Diabetes 4. Diabetic neuropathy Plan: Stable, vascular surgery recommendation noted, continue antibiotics, management per podiatry Consultation Date/Type/Reason Admit Date/Time Dec 18, 2018 at 04:02 Initial Consult Date 12/18/18 Type of Consult id Requesting Provider: JACKI LARA MD Date/Time of Note DATE: 12/20/18 TIME: 18:45 Exam/Review of Systems Exam Vitals Vital Signs Date Temp Pulse Resp B/P (MAP) Pulse Ox O2 O2 Flow FiO2 Time Delivery Rate 12/20/18 99.0 100 16 157/72 99 Room Air 14:29 (100) Intake and Output 12/19/18 12/19/18 12/20/18 1515:00 23:00 07:00 IntakeIntake Total 950 ml 350 ml OutputOutput Total 2400 ml 200 ml BalanceBalance -2400 ml 750 ml 350 ml Results Result Diagram: 12/20/18 0512 12/20/18 0512 Results 24hrs Laboratory Tests Test 12/19/18 18:46 12/19/18 18:59 12/19/18 20:09 12/19/18 20:36 Troponin I < 0.012 Bedside Glucose 65 L 46 *L 52 L Test 12/19/18 20:48 12/19/18 21:10 12/19/18 21:37 12/19/18 22:10 Glucose Level 45 #*L Bedside Glucose 76 89 78 Test 12/19/18 22:34 12/19/18 22:55 12/19/18 23:17 12/19/18 23:52 Bedside Glucose 64 L 42 *L 50 L 73 Test 12/20/18 00:14 12/20/18 00:32 12/20/18 00:39 12/20/18 00:46 Bedside Glucose 75 84 93 Glucose Level 78 Troponin I < 0.012 Test 12/20/18 05:12 12/20/18 08:14 12/20/18 11:33 12/20/18 17:26 White Blood Count 10.7 # Red Blood Count 3.20 L Hemoglobin 9.2 L Hematocrit 29.7 L Mean Corpuscular Volume 92.8 Mean Corpuscular 28.8 L Hemoglobin Mean Corpuscular 31.0 L Hemoglobin Concent Red Cell Distribution 17.1 H Width Platelet Count 344 Mean Platelet Volume 10.5 H Immature Granulocytes % 0.700 H Neutrophils % 81.2 H Lymphocytes % 9.2 L Monocytes % 8.0 Eosinophils % 0.3 Basophils % 0.6 Nucleated Red Blood 0.0 Cells % Immature Granulocytes # 0.070 H Neutrophils # 8.7 H Lymphocytes # 1.0 Monocytes # 0.9 Eosinophils # 0.0 Basophils # 0.1 Nucleated Red Blood 0.0 Cells # Sodium Level 139 Potassium Level 5.5 H Chloride Level 96 L Carbon Dioxide Level 33 H Anion Gap 10 Blood Urea Nitrogen 39 #H Creatinine 7.09 #H Est Glomerular Filtrat 10 L Rate mL/min Glucose Level 120 # Calcium Level 8.6 Troponin I < 0.012 Triglycerides Level 46 Cholesterol Level 89 L LDL Cholesterol, 38 Calculated HDL Cholesterol 42 Cholesterol/HDL Ratio 2.1 Random Vancomycin Level 8.4 Bedside Glucose 269 H 132 156 Medications Medication Current Medications Vancomycin HCl (Vanco Iv Per Pharmacy) VANCOMYCIN PER PHARMACY PER PROTOCOL XX ; Start 12/18/18 at 09:30 Hydralazine HCl (Apresoline) 20 mg Q4 PRN IV HIGH BLOOD Last administered on 12/19/18at 21:06; Admin Dose 20 MG; Start 12/18/18 at 09:30 Acetaminophen (Tylenol Tab) 650 mg Q4H PRN PO MILD PAIN(1-3)OR ELEVATED TEMP; Start 12/18/18 at 09:30 Acetaminophen/ Hydrocodone Bitart ([place] (5/325)) 1 tab Q4H PRN PO MODERATE PAIN LEVEL 4-6 Last administered on 12/20/18at 18:00; Admin Dose 1 TAB; Start 12/18/18 at 09:30 Insulin Aspart (Novolog Insulin Pen) NOVOLOG *MILD* ALGORITHM WITH MEALS BEDTIME SC Last administered on 12/20/18 17:29; Admin Dose 1 UNIT; Start 12/18/18 at 12:00 Amlodipine Besylate (Norvasc) 10 mg DAILY PO Last administered on 12/20/18 09:01; Admin Dose 10 MG; Start 12/18/18 at 09:30 Aspirin (Halfprin) 81 mg DAILY PO Last administered on 12/20/18 09:01; Admin Dose 81 MG; Start 12/18/18 at 09:30 Atorvastatin Calcium (Lipitor) 80 mg QHS PO Last administered on 12/19/18 21:01; Admin Dose 80 MG; Start 12/18/18 at 21:00 Baclofen (Lioresal) 10 mg TID PO Last administered on 12/20/18 12:59; Admin Dose 10 MG; Start 12/18/18 at 13:00 Clopidogrel Bisulfate (plaVIX) 75 mg DAILY PO Last administered on 12/20/18 09:01; Admin Dose 75 MG; Start 12/18/18 at 09:30 Multivit/Ca Carb/ B Cmplx/FA/Prenat (Amarilis-Christina) 1 tab DAILY PO Last administered on 12/20/18 12:59; Admin Dose 1 TAB; Start 12/18/18 at 09:30 Mirtazapine (Remeron) 15 mg HS PO Last administered on 12/19/18 21:01; Admin Dose 15 MG; Start 12/18/18 at 21:00 Paroxetine HCl (Paxil) 10 mg DAILY PO Last administered on 12/20/18 09:01; Admin Dose 10 MG; Start 12/18/18 at 09:30 Zinc Sulfate (Zinc Sulfate) 220 mg DAILY PO Last administered on 12/20/18 12:59; Admin Dose 220 MG; Start 12/18/18 at 09:30 Sevelamer Carbonate (Renvela) 800 mg WITH MEALS PO Last administered on 12/19/18 17:26; Admin Dose 800 MG; Start 12/18/18 at 11:30 Diagnostic Test (Pha) (Accu-Chek) 1 ea 02 XX ; Start 12/19/18 at 02:00 Miscellaneous Information 1 ea NOTE XX ; Start 12/18/18 at 13:00 Glucose (Glutose) 15 gm Q15M PRN PO DECREASED GLUCOSE Last administered on 12/19/18 22:39; Admin Dose 15 GM; Start 12/18/18 at 13:00 Glucose (Glutose) 22.5 gm Q15M PRN PO DECREASED GLUCOSE Last administered on 12/19/18 23:35; Admin Dose 22.5 GM; Start 12/18/18 at 13:00 Dextrose (D50w Syringe) 25 ml Q15M PRN IV DECREASED GLUCOSE; Start 12/18/18 at 13:00 Dextrose (D50w Syringe) 50 ml Q15M PRN IV DECREASED GLUCOSE; Start 12/18/18 at 13:00 Glucagon (Glucagen) 1 mg Q15M PRN IM DECREASED GLUCOSE; Start 12/18/18 at 13:00 Glucose (Glutose) 15 gm Q15M PRN BUCCAL DECREASED GLUCOSE; Start 12/18/18 at 13:00 Epoetin Josias-epbx (Retacrit (Esrd)) 8,000 unit MoWeFr@1700 SC Last administered on 12/20/18 17:31; Admin Dose 8,000 UNIT; Start 12/18/18 at 17:00 Levofloxacin (Levaquin) 500 mg Q48H PO Last administered on 12/20/18 08:16; Admin Dose 500 MG; Start 12/20/18 at 08:00 Povidone Iodine (Povidone-Iodine) 1 applic BID TOP Last administered on 12/20/18 10:18; Admin Dose 1 APPLIC; Start 12/18/18 at 21:00 Sodium Hypochlorite (Dakins Diluted (40)) 1 applic BID TP Last administered on 12/20/18 10:18; Admin Dose 1 APPLIC; Start 12/18/18 at 21:00 Multi-Ingredient Ointment (Eucerin Cream) 1 applic DAILY TOP Last administered on 12/20/18 11:39; Admin Dose 1 APPLIC; Start 12/19/18 at 10:28 Insulin Glargine (Lantus) 7 units DAILY@2000 SC ; Start 12/19/18 at 20:00 Dextrose/Sodium Chloride 1,000 ml @ 50 mls/hr Q20H IV Last administered on 12/19/18at 23:46; Admin Dose 50 MLS/HR; Start 12/19/18 at 23:30 Metoprolol Tartrate (Lopressor) 25 mg BID PO ; Start 12/20/18 at 21:00 Insulin Aspart (Novolog Insulin Pen) 2 unit WITH MEALS SC ; Start 12/21/18 at 07:35 SARABJIT DILLARD NP Dec 20, 2018 18:46
[2018-12-20] MEDS: ATORVASTATIN 80 MG TAB PO SCH (20:57)
[2018-12-20] MEDS: INSULIN GLARGINE [LANTus] (100 UNITS/ML) SYG SC SCH (20:57)
[2018-12-20] MEDS: MIRTAZAPINE 15 MG TAB PO SCH (20:57)
[2018-12-20] MEDS: METOPROLOL 25 MG TAB PO SCH (20:58)
[2018-12-20] MEDS: DEXTROSE 5%-0.9% NACL 1,000 ML IV SCH (22:24)
[2018-12-21] VITALS (22 sets, daily range): BP systolic 93–172; BP diastolic 53–118; PULSE 81–95; RESP 16–18
[2018-12-21] MEDS: ACCU-CHEK XX SCH (02:00)
[2018-12-21] MEDS: hydrALAzine 20 MG INJ IV PRN (03:13)
[2018-12-21] MEDS: INSULIN ASPART [NOVOLOG] 3 ML PEN SC SCH ×7 (08:06→21:00)
[2018-12-21] MEDS: SEVELAMER CARBONATE 800 MG TABLET PO SCH ×3 (08:07→17:33)
[2018-12-21] MEDS: METOPROLOL 25 MG TAB PO SCH ×2 (08:26→21:29)
[2018-12-21] MEDS: ASPIRIN (EC) 81 MG TAB PO SCH (08:27)
[2018-12-21] MEDS: BACLOFEN 10 MG TAB PO SCH ×3 (08:27→21:28)
[2018-12-21] MEDS: CLOPIDOGREL 75 MG TAB PO SCH (08:27)
[2018-12-21] MEDS: MULTIVIT/CA CARB/B CMPLX/FA TAB PO SCH (08:27)
[2018-12-21] MEDS: AMLODIPINE 10 MG TAB PO SCH (08:27)
[2018-12-21] MEDS: PAROXETINE 10 MG TAB PO SCH (08:27)
[2018-12-21] MEDS: ZINC SULFATE 220 MG CAP PO SCH (08:27)
[2018-12-21] MEDS: EUCERIN 113 GM CR TOP SCH (08:35)
[2018-12-21] MEDS: POVIDONE IODINE 10% 28.4 GM OINT TOP SCH ×2 (08:36→21:29)
[2018-12-21] MEDS: DAKINS 0.0125%(1/40) 473 ML SOLUTION TP SCH ×2 (08:36→21:30)
[2018-12-21] MEDS: LISINOPRIL 20 MG TAB PO SCH (08:39)
--- NOTE | 2018-12-21 09:17 | PN ---
DATE: 12/21/2018 SUBJECTIVE: The patient is stable, no events overnight. OBJECTIVE: VITAL SIGNS: Blood pressure is 172/81, respiration 19, pulse 85, temperature 98.2. HEENT: Head is normocephalic. NECK: Supple. HEART: Regular rate. LUNGS: Show diminished breath sounds at the base. ABDOMEN: Soft, nontender to palpation without rebound or guarding. EXTREMITIES: Negative for clubbing, cyanosis, no edema. DERMATOLOGIC: No rashes. MUSCULOSKELETAL: No joint effusions. NEUROLOGIC: No change in exam. MEDICATIONS: Have been reviewed. LABORATORY DATA: Has been reviewed. IMAGING STUDIES: Have been reviewed. ASSESSMENT AND PLAN: 1. End-stage renal disease. The patient had hemodialysis yesterday, tolerated well. Plan for hemod ialysis tomorrow or Sunday. 2. Hyperkalemia, improved. Continue dialysis on low potassium bath. 3. Anemia. Continue to monitor hemoglobin and hematocrit levels. Continue Epogen. 4. Mineral bone disorder, monitor calcium and phosphorus levels. 5. Diabetic foot ulcer, peripheral vascular disease. Continue medical management. Follow up podiat ry recommendations. Follow up with vascular surgery. 6. Diabetes. Continue current insulin regimen. 7. History of cerebrovascular accident. Continue to monitor. 8. Hypertension. Blood pressure remains elevated. We will continue current blood pressure regimen, add COLIN inhibitor. 9. Dyslipidemia. Dictated By: RUFUS VEGA DO NR/NTS Conf#: [id number] DID#: [id number] CC: JACKI LARA MD;*EndCC*
[2018-12-21] MEDS: DEXTROSE 5%-0.45% NACL 1,000 ML IV SCH (13:41)
--- NOTE | 2018-12-21 14:58 | PN ---
Date/Time of Note Date/Time of Note DATE: 12/21/18 TIME: 14:50 Assessment/Plan VTE Prophylaxis Risk score (from [facility] [place]0 risk: 2 SCD applied (from [facility] [place]): No SCD contraindicated: other Pharmacological prophylaxis: other Pharm contraindication: other Lines/Catheters IV C[facility]ter Type (from [facility]): Peripheral IV Urinary Cath still in place: No Assessment/Plan Assessment/Plan Hypotension -Patient has episode of hypotension x1 today around 1430- SBP in 65s; got very lethargic; Patient vomittedx1 today; rechecked - SBP 115. Patient was responsive; followed commands. On HD. Will do stat EKG; Dr Callaway follows; will do stat CXR to r/o aspiration as well. Troponin x 3; CHD panel ordrered will transfer to [facility] for his change in condition. - Hyperkalemia- Per nephro - Hypertension -Dr Agustin started him on Lisinoril, sbp 160. - cardio follows -Right foot ulcer with cellulitis. Continue broad-spectrum antibiotics. Dr. Giles is following in infection disease consultation. Dr. Ford following and podiatry consultation -Hemodialysis dependent end-stage renal disease. Dr. Agustin is following in nephrology consultation. -Diabetes mellitus type 2. Continue Lantus and NovoLog. -Hyperlipidemia, continue statin. -History of stroke, continue Plavix. Toata care tie spend 35 mins.Further recommendations based on clinical course. Plan of care discussed with Dr. Perez. Result Diagram: 12/21/18 0521 12/21/18 0521 Results 24hrs Laboratory Tests Test 12/20/18 17:26 12/20/18 20:52 12/21/18 02:20 12/21/18 05:21 Bedside Glucose 156 204 114 White Blood Count 9.1 Red Blood Count 3.27 L Hemoglobin 9.2 L Hematocrit 30.4 L Mean Corpuscular Volume 93.0 Mean Corpuscular 28.1 L Hemoglobin Mean Corpuscular 30.3 L Hemoglobin Concent Red Cell Distribution 17.1 H Width Platelet Count 297 Mean Platelet Volume 10.3 Immature Granulocytes % 0.300 Neutrophils % 69.4 Lymphocytes % 14.7 L Monocytes % 13.2 H Eosinophils % 1.2 Basophils % 1.2 Nucleated Red Blood 0.0 Cells % Immature Granulocytes # 0.030 Neutrophils # 6.3 Lymphocytes # 1.3 Monocytes # 1.2 H Eosinophils # 0.1 Basophils # 0.1 Nucleated Red Blood 0.0 Cells # Sodium Level 139 Potassium Level 5.5 H Chloride Level 100 Carbon Dioxide Level 30 Anion Gap 9 Blood Urea Nitrogen 22 #H Creatinine 5.52 H Est Glomerular Filtrat 13 L Rate mL/min Glucose Level 121 Calcium Level 8.7 Test 12/21/18 05:32 12/21/18 08:05 12/21/18 12:00 12/21/18 14:28 Bedside Glucose 127 170 207 221 H Subjective 24 Hr Interval Summary Free Text/Dictation -Patient vomittedx1 today. -Patient has episode of hypotension x1 today around 1430- SBP in 65s; got very lethargic; rechecked - SBP 115. Patient was responsive; followed commands. On HD.s -Hypertension; Dr Agustin started him on Lisinopril, sbp 160. -Will do stat EKG; Dr Callaway follows; will transfer to [facility] for his change in condition. - will do stat CXR to r/o aspiration as well. dw staff Eyes: no complaints ENT: no complaints Respiratory: no complaints Cardiovascular: no complaints Gastrointestinal: no complaints Exam/Review of Systems Exam Vitals Vital Signs Date Temp Pulse Resp B/P (MAP) Pulse Ox O2 O2 Flow FiO2 Time Delivery Rate 12/21/18 84 114/53 11:56 (73) 12/21/18 98.1 18 100 08:24 12/20/18 Room Air 14:29 Intake and Output 12/20/18 12/20/18 12/21/18 1515:00 23:00 07:00 IntakeIntake Total 1070 ml 750 ml 575 ml OutputOutput Total 2400 ml BalanceBalance -1330 ml 750 ml 575 ml Constitutional: alert, well developed Psych: nl mood/affect Eyes: nl lids ENMT: nl external ears & nose Neck: non-tender Respiratory: clear to auscultation Cardiovascular: nl pulses, other (s1s2) Gastrointestinal: soft, non-tender Musculoskeletal: muscle weakness Extremities: normal pulses Neurological: other (alert; answers "yes" and "No") Results Results 24hrs Laboratory Tests Test 12/20/18 17:26 12/20/18 20:52 12/21/18 02:20 12/21/18 05:21 Bedside Glucose 156 204 114 White Blood Count 9.1 Red Blood Count 3.27 L Hemoglobin 9.2 L Hematocrit 30.4 L Mean Corpuscular Volume 93.0 Mean Corpuscular 28.1 L Hemoglobin Mean Corpuscular 30.3 L Hemoglobin Concent Red Cell Distribution 17.1 H Width Platelet Count 297 Mean Platelet Volume 10.3 Immature Granulocytes % 0.300 Neutrophils % 69.4 Lymphocytes % 14.7 L Monocytes % 13.2 H Eosinophils % 1.2 Basophils % 1.2 Nucleated Red Blood 0.0 Cells % Immature Granulocytes # 0.030 Neutrophils # 6.3 Lymphocytes # 1.3 Monocytes # 1.2 H Eosinophils # 0.1 Basophils # 0.1 Nucleated Red Blood 0.0 Cells # Sodium Level 139 Potassium Level 5.5 H Chloride Level 100 Carbon Dioxide Level 30 Anion Gap 9 Blood Urea Nitrogen 22 #H Creatinine 5.52 H Est Glomerular Filtrat 13 L Rate mL/min Glucose Level 121 Calcium Level 8.7 Test 12/21/18 05:32 12/21/18 08:05 12/21/18 12:00 12/21/18 14:28 Bedside Glucose 127 170 207 221 H Medications Medication Current Medications Vancomycin HCl (Vanco Iv Per Pharmacy) VANCOMYCIN PER PHARMACY PER PROTOCOL XX ; Start 12/18/18 at 09:30 Hydralazine HCl (Apresoline) 20 mg Q4 PRN IV HIGH BLOOD Last administered on 12/21/18at 03:13; Admin Dose 20 MG; Start 12/18/18 at 09:30 Acetaminophen (Tylenol Tab) 650 mg Q4H PRN PO MILD PAIN(1-3)OR ELEVATED TEMP; Start 12/18/18 at 09:30 Acetaminophen/ Hydrocodone Bitart ([place] (5/325)) 1 tab Q4H PRN PO MODERATE PAIN LEVEL 4-6 Last administered on 12/20/18at 18:00; Admin Dose 1 TAB; Start 12/18/18 at 09:30 Insulin Aspart (Novolog Insulin Pen) NOVOLOG *MILD* ALGORITHM WITH MEALS BEDTIME SC Last administered on 12/21/18at 12:03; Admin Dose 2 UNIT; Start 12/18/18 at 12:00 Amlodipine Besylate (Norvasc) 10 mg DAILY PO Last administered on 12/21/18at 08 :27; Admin Dose 10 MG; Start 12/18/18 at 09:30 Aspirin (Halfprin) 81 mg DAILY PO Last administered on 12/21/18 08:27; Admin Dose 81 MG; Start 12/18/18 at 09:30 Atorvastatin Calcium (Lipitor) 80 mg QHS PO Last administered on 12/20/18 20:57; Admin Dose 80 MG; Start 12/18/18 at 21:00 Baclofen (Lioresal) 10 mg TID PO Last administered on 12/21/18 08:27; Admin Dose 10 MG; Start 12/18/18 at 13:00 Clopidogrel Bisulfate (plaVIX) 75 mg DAILY PO Last administered on 12/21/18 08:27; Admin Dose 75 MG; Start 12/18/18 at 09:30 Multivit/Ca Carb/ B Cmplx/FA/Prenat (Amarilis-Christina) 1 tab DAILY PO Last administered on 12/21/18 08:27; Admin Dose 1 TAB; Start 12/18/18 at 09:30 Mirtazapine (Remeron) 15 mg HS PO Last administered on 12/20/18 20:57; Admin Dose 15 MG; Start 12/18/18 at 21:00 Paroxetine HCl (Paxil) 10 mg DAILY PO Last administered on 12/21/18 08:27; Admin Dose 10 MG; Start 12/18/18 at 09:30 Zinc Sulfate (Zinc Sulfate) 220 mg DAILY PO Last administered on 12/21/18 08:27; Admin Dose 220 MG; Start 12/18/18 at 09:30 Sevelamer Carbonate (Renvela) 800 mg WITH MEALS PO Last administered on 12/21/18 12:04; Admin Dose 800 MG; Start 12/18/18 at 11:30 Diagnostic Test (Pha) (Accu-Chek) 1 ea 02 XX ; Start 12/19/18 at 02:00 Miscellaneous Information 1 ea NOTE XX ; Start 12/18/18 at 13:00 Glucose (Glutose) 15 gm Q15M PRN PO DECREASED GLUCOSE Last administered on 12/19/18 22:39; Admin Dose 15 GM; Start 12/18/18 at 13:00 Glucose (Glutose) 22.5 gm Q15M PRN PO DECREASED GLUCOSE Last administered on 12/19/18 23:35; Admin Dose 22.5 GM; Start 12/18/18 at 13:00 Dextrose (D50w Syringe) 25 ml Q15M PRN IV DECREASED GLUCOSE; Start 12/18/18 at 13:00 Dextrose (D50w Syringe) 50 ml Q15M PRN IV DECREASED GLUCOSE; Start 12/18/18 at 13:00 Glucagon (Glucagen) 1 mg Q15M PRN IM DECREASED GLUCOSE; Start 12/18/18 at 13:00 Glucose (Glutose) 15 gm Q15M PRN BUCCAL DECREASED GLUCOSE; Start 12/18/18 at 13:00 Epoetin Josias-epbx (Retacrit (Esrd)) 8,000 unit MoWeFr@1700 SC Last administered on 12/20/18 17:31; Admin Dose 8,000 UNIT; Start 12/18/18 at 17:00 Levofloxacin (Levaquin) 500 mg Q48H PO Last administered on 12/20/18 08:16; Admin Dose 500 MG; Start 12/20/18 at 08:00 Povidone Iodine (Povidone-Iodine) 1 applic BID TOP Last administered on 12/21/18 08:36; Admin Dose 1 APPLIC; Start 12/18/18 at 21:00 Sodium Hypochlorite (Dakins Diluted (40)) 1 applic BID TP Last administered on 12/21/18 08:36; Admin Dose 1 APPLIC; Start 12/18/18 at 21:00 Multi-Ingredient Ointment (Eucerin Cream) 1 applic DAILY TOP Last administered on 12/21/18 08:35; Admin Dose 1 APPLIC; Start 12/19/18 at 10:28 Insulin Glargine (Lantus) 7 units DAILY@2000 SC Last administered on 12/20/18 20:57; Admin Dose 7 UNITS; Start 12/19/18 at 20:00 Metoprolol Tartrate (Lopressor) 25 mg BID PO Last administered on 12/21/18 08:26; Admin Dose 25 MG; Start 12/20/18 at 21:00 Insulin Aspart (Novolog Insulin Pen) 2 unit WITH MEALS SC Last administered on 12/21/18 12:04; Admin Dose 2 UNIT; Start 12/21/18 at 07:35 Lisinopril (Zestril) 20 mg DAILY PO Last administered on 6/8/19at 08:39; Admin Dose 20 MG; Start 12/21/18 at 09:00 Dextrose/Sodium Chloride 1,000 ml @ 50 mls/hr Q20H IV Last administered on 12/21/18at 13:41; Admin Dose 50 MLS/HR; Start 12/21/18 at 13:30 Ondansetron HCl (Zofran Inj) 4 mg Q6H PRN IV NAUSEA AND/OR VOMITING; Start 12/21/18 at 13:30 ADRIANA JUSTICE Dec 21, 2018 14:58
[2018-12-21] MEDS: ONDANSETRON 4 MG INJ IV PRN (15:23)
--- NOTE | 2018-12-21 15:26 | CONS ---
Assessment/Plan Assessment/Plan Hospital Course (Demo Recall) IMPRESSION: 1. Preoperative evaluation prior to possible toe amputation and possible need for further evaluation.-neg trop x 3 2. Hypertension-labile 3. History of dyslipidemia. 4. Peripheral arterial disease with nonhealing lower extremity ulcers. 5. Nonhealing lower extremity ulcers. 6. Cellulitis. 7. Diabetes mellitus. 8. Psychiatric disorder. 9. New change in MS-? CVA-head CT 12/20 neg for acute changes. ECG just now without acute changes Recc: -Transfer to tele -serial ecg's -Continue BB/CCB and now zestril and follow BP closely and use PRN antihypertensives as necessary -Continue asa/plavix -Continue statin -Continue abx's and f/u cx dta -Continue local wound care -f/u troponin being drawn -? need to repeat Head CT Consultation Date/Type/Reason Admit Date/Time Dec 18, 2018 at 04:02 Initial Consult Date 12/18/18 Type of Consult Cardiology Reason for Consultation Preop/HTN Requesting Provider: JACKI LARA MD Date/Time of Note DATE: 12/21/18 TIME: 15:19 Exam/Review of Systems Vital Signs Vitals Vital Signs Date Temp Pulse Resp B/P (MAP) Pulse Ox O2 O2 Flow FiO2 Time Delivery Rate 12/21/18 90 16 134/62 98 Room Air 14:56 (86) 12/21/18 97.7 14:54 Intake and Output 12/20/18 12/20/18 12/21/18 1515:00 23:00 07:00 IntakeIntake Total 1070 ml 750 ml 575 ml OutputOutput Total 2400 ml BalanceBalance -1330 ml 750 ml 575 ml Exam Exam Review of Systems: CONSTITUTIONAL: No fevers, chills. PULMONARY: No sob CARDIOVASCULAR: No chest pain/palpitations GASTROINTESTINAL: No nausea/vomiting. GENITOURINARY: No hematuria/dysuria. MUSCULOSKELETAL: No myagias/arthalgias. PSYCHIATRIC: The patient denies depression. NEUROLOGIC: No weakness Constitutional: other (aletered MS) Psych: no complaints Head: normocephalic ENMT: mucosa pink and moist Neck: supple, jvd (9 cm water) Respiratory: other (mildly decreased BP at bases/B) Cardiovascular: regular rate and rhythm Gastrointestinal: soft, non-tender Musculoskeletal: muscle tone (normal) Extremities: edema (none), other (cachectic appearing) Neurological: other (postured/focal weakness) Labs Result Diagram: 12/21/18 0512/21/18 05 Results 24hrs Laboratory Tests Test 12/20/18 17:26 12/20/18 20:52 12/21/18 02:20 12/21/18 05:21 Bedside Glucose 156 204 114 White Blood Count 9.1 Red Blood Count 3.27 L Hemoglobin 9.2 L Hematocrit 30.4 L Mean Corpuscular Volume 93.0 Mean Corpuscular 28.1 L Hemoglobin Mean Corpuscular 30.3 L Hemoglobin Concent Red Cell Distribution 17.1 H Width Platelet Count 297 Mean Platelet Volume 10.3 Immature Granulocytes % 0.300 Neutrophils % 69.4 Lymphocytes % 14.7 L Monocytes % 13.2 H Eosinophils % 1.2 Basophils % 1.2 Nucleated Red Blood 0.0 Cells % Immature Granulocytes # 0.030 Neutrophils # 6.3 Lymphocytes # 1.3 Monocytes # 1.2 H Eosinophils # 0.1 Basophils # 0.1 Nucleated Red Blood 0.0 Cells # Sodium Level 139 Potassium Level 5.5 H Chloride Level 100 Carbon Dioxide Level 30 Anion Gap 9 Blood Urea Nitrogen 22 #H Creatinine 5.52 H Est Glomerular Filtrat 13 L Rate mL/min Glucose Level 121 Calcium Level 8.7 Test 12/21/18 05:32 12/21/18 08:05 12/21/18 12:00 12/21/18 14:28 Bedside Glucose 127 170 207 221 H Medications Medications Current Medications Vancomycin HCl (Vanco Iv Per Pharmacy) VANCOMYCIN PER PHARMACY PER PROTOCOL XX ; Start 12/18/18 at 09:30 Hydralazine HCl (Apresoline) 20 mg Q4 PRN IV HIGH BLOOD Last administered on 12/21/18at 03:13; Admin Dose 20 MG; Start 12/18/18 at 09:30 Acetaminophen (Tylenol Tab) 650 mg Q4H PRN PO MILD PAIN(1-3)OR ELEVATED TEMP; Start 12/18/18 at 09:30 Acetaminophen/ Hydrocodone Bitart ([place] (5/325)) 1 tab Q4H PRN PO MODERATE PAIN LEVEL 4-6 Last administered on 12/20/18at 18:00; Admin Dose 1 TAB; Start 12/18/18 at 09:30 Insulin Aspart (Novolog Insulin Pen) NOVOLOG *MILD* ALGORITHM WITH MEALS BEDTIME SC Last administered on 12/21/18 12:03; Admin Dose 2 UNIT; Start 12/18/18 at 12:00 Amlodipine Besylate (Norvasc) 10 mg DAILY PO Last administered on 12/21/18 0 8:27; Admin Dose 10 MG; Start 12/18/18 at 09:30 Aspirin (Halfprin) 81 mg DAILY PO Last administered on 12/21/18 08:27; Admin Dose 81 MG; Start 12/18/18 at 09:30 Atorvastatin Calcium (Lipitor) 80 mg QHS PO Last administered on 12/20/18 20:57; Admin Dose 80 MG; Start 12/18/18 at 21:00 Baclofen (Lioresal) 10 mg TID PO Last administered on 12/21/18 08:27; Admin Dose 10 MG; Start 12/18/18 at 13:00 Clopidogrel Bisulfate (plaVIX) 75 mg DAILY PO Last administered on 12/21/18 08:27; Admin Dose 75 MG; Start 12/18/18 at 09:30 Multivit/Ca Carb/ B Cmplx/FA/Prenat (Amarilis-Christina) 1 tab DAILY PO Last administere d on 12/21/18 08:27; Admin Dose 1 TAB; Start 12/18/18 at 09:30 Mirtazapine (Remeron) 15 mg HS PO Last administered on 12/20/18 20:57; Admin Dose 15 MG; Start 12/18/18 at 21:00 Paroxetine HCl (Paxil) 10 mg DAILY PO Last administered on 12/21/18 08:27; Admin Dose 10 MG; Start 12/18/18 at 09:30 Zinc Sulfate (Zinc Sulfate) 220 mg DAILY PO Last administered on 12/21/18 08:27; Admin Dose 220 MG; Start 12/18/18 at 09:30 Sevelamer Carbonate (Renvela) 800 mg WITH MEALS PO Last administered on 12/21/18 12:04; Admin Dose 800 MG; Start 12/18/18 at 11:30 Diagnostic Test (Pha) (Accu-Chek) 1 ea 02 XX ; Start 12/19/18 at 02:00 Miscellaneous Information 1 ea NOTE XX ; Start 12/18/18 at 13:00 Glucose (Glutose) 15 gm Q15M PRN PO DECREASED GLUCOSE Last administered on 12/19/18 22:39; Admin Dose 15 GM; Start 12/18/18 at 13:00 Glucose (Glutose) 22.5 gm Q15M PRN PO DECREASED GLUCOSE Last administered on 12/19/18 23:35; Admin Dose 22.5 GM; Start 12/18/18 at 13:00 Dextrose (D50w Syringe) 25 ml Q15M PRN IV DECREASED GLUCOSE; Start 12/18/18 at 13:00 Dextrose (D50w Syringe) 50 ml Q15M PRN IV DECREASED GLUCOSE; Start 12/18/18 at 13:00 Glucagon (Glucagen) 1 mg Q15M PRN IM DECREASED GLUCOSE; Start 12/18/18 at 13:00 Glucose (Glutose) 15 gm Q15M PRN BUCCAL DECREASED GLUCOSE; Start 12/18/18 at 13:00 Epoetin Josias-epbx (Retacrit (Esrd)) 8,000 unit MoWeFr@1700 SC Last administered on 12/20/18 17:31; Admin Dose 8,000 UNIT; Start 12/18/18 at 17:00 Levofloxacin (Levaquin) 500 mg Q48H PO Last administered on 12/20/18 08:16; Admin Dose 500 MG; Start 12/20/18 at 08:00 Povidone Iodine (Povidone-Iodine) 1 applic BID TOP Last administered on 12/21/18 08:36; Admin Dose 1 APPLIC; Start 12/18/18 at 21:00 Sodium Hypochlorite (Dakins Diluted ()) 1 applic BID TP Last administered on 12/21/18 08:36; Admin Dose 1 APPLIC; Start 12/18/18 at 21:00 Multi-Ingredient Ointment (Eucerin Cream) 1 applic DAILY TOP Last administered on 12/21/18 08:35; Admin Dose 1 APPLIC; Start 12/19/18 at 10:28 Insulin Glargine (Lantus) 7 units DAILY@2000 SC Last administered on 12/20/18 20:57; Admin Dose 7 UNITS; Start 12/19/18 at 20:00 Metoprolol Tartrate (Lopressor) 25 mg BID PO Last administered on 12/21/18 08:26; Admin Dose 25 MG; Start 12/20/18 at 21:00 Insulin Aspart (Novolog Insulin Pen) 2 unit WITH MEALS SC Last administered on 12/21/18 12:04; Admin Dose 2 UNIT; Start 12/21/18 at 07:35 Lisinopril (Zestril) 20 mg DAILY PO Last administered on 12/21/18 08:39; Admin Dose 20 MG; Start 12/21/18 at 09:00 Dextrose/Sodium Chloride 1,000 ml @ 50 mls/hr Q20H IV Last administered on 12/21/18 13:41; Admin Dose 50 MLS/HR; Start 12/21/18 at 13:30 Ondansetron HCl (Zofran Inj) 4 mg Q6H PRN IV NAUSEA AND/OR VOMITING; Start 12/21/18 at 13:30 JUWAN TAYLOR Dec 21, 2018 15:26
--- NOTE | 2018-12-21 15:54 | RADRPT ---
Vent Rate: 90 bpm RR Interval: 668 msec ME Interval: 204 msec QRS Duration: 65 msec QT Interval: 381 msec QTC Interval: 466 msec P-R-T [place]: 76 - -3 - 86 degrees Sinus rhythm...normal P axis, V-rate 50- 99 Electronically Signed By: Franco Callaway
[2018-12-21] MEDS: ATORVASTATIN 80 MG TAB PO SCH (21:28)
[2018-12-21] MEDS: MIRTAZAPINE 15 MG TAB PO SCH (21:28)
[2018-12-21] MEDS: INSULIN GLARGINE [LANTus] (100 UNITS/ML) SYG SC SCH (22:31)
[2018-12-22] VITALS (9 sets, daily range): BP systolic 104–134; BP diastolic 57–94; PULSE 74–90; RESP 17–19
[2018-12-22] MEDS: HYDROCODONE/APAP (5/325) TAB PO PRN
[2018-12-22] MEDS: ACCU-CHEK XX SCH ×3 (02:00→21:45)
[2018-12-22] MEDS: DEXTROSE 50% 50 ML SYRINGE IV PRN (07:09)
[2018-12-22] MEDS: INSULIN ASPART [NOVOLOG] 3 ML PEN SC SCH ×6 (08:15→21:00)
--- NOTE | 2018-12-22 08:17 | PN ---
Date/Time of Note Date/Time of Note DATE: 12/22/18 TIME: 08:14 Assessment/Plan VTE Prophylaxis Risk score (from Ns)>0 risk: 2 SCD applied (from [facility]): Yes SCD contraindicated: other Pharmacological prophylaxis: other Pharm contraindication: other Lines/Catheters IV Catheter Type (from [facility]): Peripheral IV Urinary Cath still in place: No Assessment/Plan Assessment/Plan - Acute Hypoglycemia- BS stable- 155 now - On D5 1/2 NS at 50- -Hypotension -RESOLVED -Patient has episode of hypotension x1 today around 1430- SBP in 65s; got very lethargic; Patient vomittedx1 today; rechecked - SBP 115. Patient was responsive; followed commands. On HD. Will do stat EKG; Dr Callaway follows; will do stat CXR to r/o aspiration as well. Troponin x 3; CHD panel [facility]. - Hyperkalemia- resolved - Per nephro - Hypertension -Dr Agustin started him on Lisinopril, sbp 160. - cardio follows -Right foot ulcer with cellulitis. Continue broad-spectrum antibiotics. Dr. Giles is following in infection disease consultation. Dr. Fodr following and podiatry consultation -Hemodialysis dependent end-stage renal disease. Dr. Agustin is following in ne phrology consultation. -Diabetes mellitus type 2. Continue Lantus and NovoLog. -Hyperlipidemia, continue statin. -History of stroke, continue Plavix. Toata care tie spend 35 mins.Further recommendations based on clinical course. Plan of care discussed with Dr. Perez. Result Diagram: 12/22/18 0454 12/22/18 0454 Results 24hrs Laboratory Tests Test 12/21/18 12:00 12/21/18 14:28 12/21/18 16:40 12/21/18 17:14 Bedside Glucose 207 221 H Troponin I < 0.012 White Blood Count 9.1 Red Blood Count 2.85 L Hemoglobin 8.2 L Hematocrit 26.3 L Mean Corpuscular Volume 92.3 Mean Corpuscular 28.8 L Hemoglobin Mean Corpuscular 31.2 L Hemoglobin Concent Red Cell Distribution 16.7 H Width Platelet Count 282 Mean Platelet Volume 9.6 Immature Granulocytes % 0.300 Neutrophils % 80.7 H Lymphocytes % 9.2 L Monocytes % 8.4 Eosinophils % 0.3 Basophils % 1.1 Nucleated Red Blood 0.0 Cells % Immature Granulocytes # 0.030 Neutrophils # 7.3 Lymphocytes # 0.8 Monocytes # 0.8 Eosinophils # 0.0 Basophils # 0.1 Nucleated Red Blood 0.0 Cells # Sodium Level 139 Potassium Level 4.4 Chloride Level 101 Carbon Dioxide Level 28 Anion Gap 10 Blood Urea Nitrogen 20 Creatinine 4.86 H Est Glomerular Filtrat 15 L Rate mL/min Glucose Level 166 Calcium Level 8.5 Total Bilirubin 0.5 Direct Bilirubin 0.00 Indirect Bilirubin 0.5 Aspartate Amino 17 Transf (AST/SGOT) Alanine 30 Aminotransferase (ALT/SG PT) Alkaline Phosphatase 89 Total Protein 6.1 Albumin 3.1 L Globulin 3.00 Albumin/Globulin Ratio 1.03 Test 12/21/18 17:31 12/21/18 21:17 12/21/18 22:39 12/22/18 04:54 Bedside Glucose 158 82 Lactic Acid Level 1.5 White Blood Count 7.4 Red Blood Count 3.07 L Hemoglobin 8.7 L Hematocrit 28.2 L Mean Corpuscular Volume 91.9 Mean Corpuscular 28.3 L Hemoglobin Mean Corpuscular 30.9 L Hemoglobin Concent Red Cell Distribution 16.8 H Width Platelet Count 310 Mean Platelet Volume 10.5 H Immature Granulocytes % 0.400 Neutrophils % 69.9 Lymphocytes % 14.1 L Monocytes % 13.0 H Eosinophils % 1.1 Basophils % 1.5 Nucleated Red Blood 0.0 Cells % Immature Granulocytes # 0.030 Neutrophils # 5.2 Lymphocytes # 1.0 Monocytes # 1.0 H Eosinophils # 0.1 Basophils # 0.1 Nucleated Red Blood 0.0 Cells # Sodium Level 138 Potassium Level 4.3 Chloride Level 100 Carbon Dioxide Level 32 H Anion Gap 6 Blood Urea Nitrogen 17 Creatinine 4.80 H Est Glomerular Filtrat 15 L Rate mL/min Glucose Level 38 #*L Calcium Level 8.6 Triglycerides Level 37 Cholesterol Level 85 L LDL Cholesterol, 39 Calculated HDL Cholesterol 39 Cholesterol/HDL Ratio 2.1 Test 12/22/18 07:38 Bedside Glucose 155 Subjective 24 Hr Interval Summary Free Text/Dictation - Acute Hypoglycemia- BS stable- 155 now ; On D5 1/2 NS at 50- -Hypotension -RESOLVED -Patient has episode of hypotension x1 today around 1430- SBP in 65s; got very lethargic; Patient vomittedx1 today; rechecked - SBP 115. Patient was responsive; followed commands per staff. On HD. - Will do stat EKG; Dr Callaway follows; - will do stat CXR to r/o aspiration as well. -Troponin x 3; CHD panel ordrered - [facility]. Exam/Review of Systems Exam Vitals Vital Signs Date Temp Pulse Resp B/P (MAP) Pulse Ox O2 O2 Flow FiO2 Time Delivery Rate 12/22/18 98.3 86 17 119/62 97 07:22 (81) 12/21/18 Room Air 17:23 Intake and Output 12/21/18 12/21/18 12/22/18 1515:00 23:00 07:00 IntakeIntake Total 280 ml 100 ml 200 ml OutputOutput Total 1400 ml BalanceBalance 280 ml -1300 ml 200 ml Constitutional: alert, well developed Psych: nl mood/affect Head: normocephalic Eyes: nl lids Neck: non-tender Respiratory: clear to auscultation Cardiovascular: nl pulses, other (s1s2) Gastrointestinal: soft, non-tender Musculoskeletal: nl extremities to inspection Extremities: normal pulses Neurological: confused, other (alert/responsive) Skin: nl turgor Lymph: nontender Results Results 24hrs Laboratory Tests Test 12/21/18 12:00 12/21/18 14:28 12/21/18 16:40 12/21/18 17:14 Bedside Glucose 207 221 H Troponin I < 0.012 White Blood Count 9.1 Red Blood Count 2.85 L Hemoglobin 8.2 L Hematocrit 26.3 L Mean Corpuscular Volume 92.3 Mean Corpuscular 28.8 L Hemoglobin Mean Corpuscular 31.2 L Hemoglobin Concent Red Cell Distribution 16.7 H Width Platelet Count 282 Mean Platelet Volume 9.6 Immature Granulocytes % 0.300 Neutrophils % 80.7 H Lymphocytes % 9.2 L Monocytes % 8.4 Eosinophils % 0.3 Basophils % 1.1 Nucleated Red Blood 0.0 Cells % Immature Granulocytes # 0.030 Neutrophils # 7.3 Lymphocytes # 0.8 Monocytes # 0.8 Eosinophils # 0.0 Basophils # 0.1 Nucleated Red Blood 0.0 Cells # Sodium Level 139 Potassium Level 4.4 Chloride Level 101 Carbon Dioxide Level 28 Anion Gap 10 Blood Urea Nitrogen 20 Creatinine 4.86 H Est Glomerular Filtrat 15 L Rate mL/min Glucose Level 166 Calcium Level 8.5 Total Bilirubin 0.5 Direct Bilirubin 0.00 Indirect Bilirubin 0.5 Aspartate Amino 17 Transf (AST/SGOT) Alanine 30 Aminotransferase (ALT/SG PT) Alkaline Phosphatase 89 Total Protein 6.1 Albumin 3.1 L Globulin 3.00 Albumin/Globulin Ratio 1.03 Test 12/21/18 17:31 12/21/18 21:17 12/21/18 22:39 12/22/18 04:54 Bedside Glucose 158 82 Lactic Acid Level 1.5 White Blood Count 7.4 Red Blood Count 3.07 L Hemoglobin 8.7 L Hematocrit 28.2 L Mean Corpuscular Volume 91.9 Mean Corpuscular 28.3 L Hemoglobin Mean Corpuscular 30.9 L Hemoglobin Concent Red Cell Distribution 16.8 H Width Platelet Count 310 Mean Platelet Volume 10.5 H Immature Granulocytes % 0.400 Neutrophils % 69.9 Lymphocytes % 14.1 L Monocytes % 13.0 H Eosinophils % 1.1 Basophils % 1.5 Nucleated Red Blood 0.0 Cells % Immature Granulocytes # 0.030 Neutrophils # 5.2 Lymphocytes # 1.0 Monocytes # 1.0 H Eosinophils # 0.1 Basophils # 0.1 Nucleated Red Blood 0.0 Cells # Sodium Level 138 Potassium Level 4.3 Chloride Level 100 Carbon Dioxide Level 32 H Anion Gap 6 Blood Urea Nitrogen 17 Creatinine 4.80 H Est Glomerular Filtrat 15 L Rate mL/min Glucose Level 38 #*L Calcium Level 8.6 Triglycerides Level 37 Cholesterol Level 85 L LDL Cholesterol, 39 Calculated HDL Cholesterol 39 Cholesterol/HDL Ratio 2.1 Test 12/22/18 07:38 Bedside Glucose 155 Medications Medication Current Medications Vancomycin HCl (Vanco Iv Per Pharmacy) VANCOMYCIN PER PHARMACY PER PROTOCOL XX ; Start 12/18/18 at 09:30 Hydralazine HCl (Apresoline) 20 mg Q4 PRN IV HIGH BLOOD Last administered on 12/21/18at 03:13; Admin Dose 20 MG; Start 12/18/18 at 09:30 Acetaminophen (Tylenol Tab) 650 mg Q4H PRN PO MILD PAIN(1-3)OR ELEVATED TEMP; Start 12/18/18 at 09:30 Acetaminophen/ Hydrocodone Bitart ([place] (5/325)) 1 tab Q4H PRN PO MODERATE PAIN LEVEL 4-6 Last administered on 12/22/18 00:00; Admin Dose 1 TAB; Start 12/18/18 at 09:30 Insulin Aspart (Novolog Insulin Pen) NOVOLOG *MILD* ALGORITHM WITH MEALS BEDTIME SC Last administered on 12/21/18 17:38; Admin Dose 1 UNIT; Start 12/18/18 at 12:00 Amlodipine Besylate (Norvasc) 10 mg DAILY PO Last administered on 12/21/18 08:27; Admin Dose 10 MG; Start 12/18/18 at 09:30 Aspirin (Halfprin) 81 mg DAILY PO Last administered on 12/21/18 08:27; Admin Dose 81 MG; Start 12/18/18 at 09:30 Atorvastatin Calcium (Lipitor) 80 mg QHS PO Last administered on 12/21/18 21:28; Admin Dose 80 MG; Start 12/18/18 at 21:00 Baclofen (Lioresal) 10 mg TID PO Last administered on 12/21/18 21:28; Admin Dose 10 MG; Start 12/18/18 at 13:00 Clopidogrel Bisulfate (plaVIX) 75 mg DAILY PO Last administered on 12/21/18 08:27; Admin Dose 75 MG; Start 12/18/18 at 09:30 Multivit/Ca Carb/ B Cmplx/FA/Prenat (Amarilis-Christina) 1 tab DAILY PO Last administered on 12/21/18 08:27; Admin Dose 1 TAB; Start 12/18/18 at 09:30 Mirtazapine (Remeron) 15 mg HS PO Last administered on 12/21/18 21:28; Admin Dose 15 MG; Start 12/18/18 at 21:00 Paroxetine HCl (Paxil) 10 mg DAILY PO Last administered on 12/21/18 08:27; Admin Dose 10 MG; Start 12/18/18 at 09:30 Zinc Sulfate (Zinc Sulfate) 220 mg DAILY PO Last administered on 12/21/18 08:27; Admin Dose 220 MG; Start 12/18/18 at 09:30 Sevelamer Carbonate (Renvela) 800 mg WITH MEALS PO Last administered on 12/21/18 17:33; Admin Dose 800 MG; Start 12/18/18 at 11:30 Diagnostic Test (Pha) (Accu-Chek) 1 ea 02 XX ; Start 12/19/18 at 02:00 Miscellaneous Information 1 ea NOTE XX ; Start 12/18/18 at 13:00 Glucose (Glutose) 15 gm Q15M PRN PO DECREASED GLUCOSE Last administered on 12/19/18at 22:39; Admin Dose 15 GM; Start 12/18/18 at 13:00 Glucose (Glutose) 22.5 gm Q15M PRN PO DECREASED GLUCOSE Last administered on 12/19/18 23:35; Admin Dose 22.5 GM; Start 12/18/18 at 13:00 Dextrose (D50w Syringe) 25 ml Q15M PRN IV DECREASED GLUCOSE; Start 12/18/18 at 13:00 Dextrose (D50w Syringe) 50 ml Q15M PRN IV DECREASED GLUCOSE Last administered on 12/22/18 07:09; Admin Dose 50 ML; Start 12/18/18 at 13:00 Glucagon (Glucagen) 1 mg Q15M PRN IM DECREASED GLUCOSE; Start 12/18/18 at 13:00 Glucose (Glutose) 15 gm Q15M PRN BUCCAL DECREASED GLUCOSE; Start 12/18/18 at 13:00 Epoetin Josias-epbx (Retacrit (Esrd)) 8,000 unit MoWeFr@1700 SC Last administered on 12/20/18 17:31; Admin Dose 8,000 UNIT; Start 12/18/18 at 17:00 Levofloxacin (Levaquin) 500 mg Q48H PO Last administered on 12/20/18 08:16; Admin Dose 500 MG; Start 12/20/18 at 08:00 Povidone Iodine (Povidone-Iodine) 1 applic BID TOP Last administered on 12/21/18 21:29; Admin Dose 1 APPLIC; Start 12/18/18 at 21:00 Sodium Hypochlorite (Dakins Diluted ()) 1 applic BID TP Last administered on 12/21/18 21:30; Admin Dose 1 APPLIC; Start 12/18/18 at 21:00 Multi-Ingredient Ointment (Eucerin Cream) 1 applic DAILY TOP Last administered on 12/21/18 08:35; Admin Dose 1 APPLIC; Start 12/19/18 at 10:28 Insulin Glargine (Lantus) 7 units DAILY@2000 SC Last administered on 12/21/18 22:31; Admin Dose 7 UNITS; Start 12/19/18 at 20:00 Metoprolol Tartrate (Lopressor) 25 mg BID PO Last administered on 12/21/18 21:29; Admin Dose 25 MG; Start 12/20/18 at 21:00 Insulin Aspart (Novolog Insulin Pen) 2 unit WITH MEALS SC Last administered on 12/21/18 17:38; Admin Dose 2 UNIT; Start 12/21/18 at 07:35 Lisinopril (Zestril) 20 mg DAILY PO Last administered on 12/21/18 08:39; Admin Dose 20 MG; Start 12/21/18 at 09:00 Dextrose/Sodium Chloride 1,000 ml @ 50 mls/hr Q20H IV Last administered on 12/21/18 13:41; Admin Dose 50 MLS/HR; Start 12/21/18 at 13:30 Ondansetron HCl (Zofran Inj) 4 mg Q6H PRN IV NAUSEA AND/OR VOMITING Last administered on 12/21/18 15:23; Admin Dose 4 MG; Start 12/21/18 at 13:30 ADRIANA JUSTICE Dec 22, 2018 08:17
[2018-12-22] MEDS: SEVELAMER CARBONATE 800 MG TABLET PO SCH ×3 (08:40→17:02)
[2018-12-22] MEDS: ZINC SULFATE 220 MG CAP PO SCH (08:40)
[2018-12-22] MEDS: LEVOFLOXACIN 500 MG TAB PO SCH (08:40)
[2018-12-22] MEDS: CLOPIDOGREL 75 MG TAB PO SCH (08:40)
[2018-12-22] MEDS: METOPROLOL 25 MG TAB PO SCH (08:41)
[2018-12-22] MEDS: ASPIRIN (EC) 81 MG TAB PO SCH (08:41)
[2018-12-22] MEDS: AMLODIPINE 10 MG TAB PO SCH (08:41)
[2018-12-22] MEDS: BACLOFEN 10 MG TAB PO SCH ×3 (08:41→21:39)
[2018-12-22] MEDS: MULTIVIT/CA CARB/B CMPLX/FA TAB PO SCH (08:41)
[2018-12-22] MEDS: PAROXETINE 10 MG TAB PO SCH (08:41)
[2018-12-22] MEDS: EUCERIN 113 GM CR TOP SCH (08:42)
[2018-12-22] MEDS: LISINOPRIL 20 MG TAB PO SCH (08:43)
[2018-12-22] MEDS: POVIDONE IODINE 10% 28.4 GM OINT TOP SCH ×2 (08:43→21:45)
[2018-12-22] MEDS: DAKINS 0.0125%(1/40) 473 ML SOLUTION TP SCH ×2 (08:44→21:45)
[2018-12-22] MEDS: DEXTROSE 5%-0.45% NACL 1,000 ML IV SCH (08:46)
--- NOTE | 2018-12-22 09:45 | PN ---
DATE: 12/22/2018 SUBJECTIVE: The patient is currently stable. Patient was transferred from med/surg to telemetry due to altered mental status. No other events noted. OBJECTIVE: VITAL SIGNS: Blood pressure 119/62, pulse 86, temperature 98.3. HEENT: Head is normocephalic. NECK: Supple. HEART: Regular rate. LUNGS: Show diminished breath sounds at the base. ABDOMEN: Soft, nontender to palpation without rebound or guarding. EXTREMITIES: Negative for clubbing, cyanosis, no edema. DERMATOLOGIC: No rashes. MUSCULOSKELETAL: No joint effusion. NEUROLOGIC: No change in exam. MEDICATIONS: The patient's medications have been reviewed. LABORATORY DATA: Has been reviewed. ASSESSMENT AND PLAN: 1. End-stage renal disease. Plan for hemodialysis again tomorrow. We will dialyze 3 hours 3k bath, calcium 2.5. 2. Hypokalemia, improved. Continue dialysis on low potassium bath. 3. Anemia. Monitor hemoglobin and hematocrit levels. Continue Epogen. 4. Mineral bone disorder. Monitor calcium and phosphorus levels. 5. Diabetic foot ulcer. Peripheral vascular disease. Continue medical management. Follow up with p odiatry for recommendations. 6. Diabetes. Continue current insulin regimen, monitor glucose levels. 7. History of cerebrovascular accident. 8. Hypertension. Blood pressure is improving. Continue medical management. Continue ultrafiltrati on with dialysis. 9. Dyslipidemia. 10. Encephalopathy. Etiology may have been toxic metabolic. Continue to monitor. Dictated By: RUFUS VEGA DO NR/NTS Conf#: [id number] DID#: [id number] CC: JACKI LARA MD; BLAINE FAIRBANKS DPM;*EndCC*
--- NOTE | 2018-12-22 14:16 | CONS ---
Assessment/Plan Assessment/Plan Hospital Course (Demo Recall) IMPRESSION: 1. Preoperative evaluation prior to possible toe amputation and possible need for further evaluation.-neg trop x 3. NL EF by echo. Ok to proceed with toe amputation under nerve block or MAC at moderate CV risk 2. Hypertension-well controlled 3. History of dyslipidemia. 4. Peripheral arterial disease with nonhealing lower extremity ulcers. 5. Nonhealing lower extremity ulcers. 6. Cellulitis. 7. Diabetes mellitus. 8. Psychiatric disorder. 9. New change in MS-? CVA-head CT 12/20 neg for acute changes. ECG just now without acute changes Recc: -Transfer to tele -serial ecg's -Continue BB/CCB and now zestril and follow BP closely and use PRN antihypertensives as necessary -Continue asa/plavix -Continue statin -Continue abx's and f/u cx dta -Continue local wound care Consultation Date/Type/Reason Admit Date/Time Dec 18, 2018 at 04:02 Initial Consult Date 12/18/18 Type of Consult Cardiology Reason for Consultation HTN/preop Requesting Provider: JACKI LARA MD Date/Time of Note DATE: 12/22/18 TIME: 14:10 Exam/Review of Systems Vital Signs Vitals Vital Signs Date Temp Pulse Resp B/P (MAP) Pulse Ox O2 O2 Flow FiO2 Time Delivery Rate 12/22/18 78 12:00 12/22/18 97.9 18 128/72 96 11:51 (90) 12/21/18 Room Air 17:23 Intake and Output 12/21/18 12/21/18 12/22/18 1515:00 23:00 07:00 IntakeIntake Total 280 ml 100 ml 200 ml OutputOutput Total 1400 ml BalanceBalance 280 ml -1300 ml 200 ml Exam Exam Review of Systems: CONSTITUTIONAL: No fevers, chills. PULMONARY: No sob CARDIOVASCULAR: No chest pain/palpitations GASTROINTESTINAL: No nausea/vomiting. GENITOURINARY: No hematuria/dysuria. MUSCULOSKELETAL: No myagias/arthalgias. PSYCHIATRIC: The patient denies depression. NEUROLOGIC: altered MS back to baseline Constitutional: alert Psych: no complaints Head: normocephalic ENMT: mucosa pink and moist Neck: supple, jvd (9 cm water) Respiratory: clear to auscultation Cardiovascular: regular rate and rhythm Gastrointestinal: soft, non-tender Musculoskeletal: muscle weakness (generalized) Extremities: other (L foot covered by dressing) Labs Result Diagram: 12/22/18 0454 12/22/18 0454 Results 24hrs Laboratory Tests Test 12/21/18 14:28 12/21/18 16:40 12/21/18 17:14 12/21/18 17:31 Bedside Glucose 221 H 158 Troponin I < 0.012 White Blood Count 9.1 Red Blood Count 2.85 L Hemoglobin 8.2 L Hematocrit 26.3 L Mean Corpuscular Volume 92.3 Mean Corpuscular 28.8 L Hemoglobin Mean Corpuscular 31.2 L Hemoglobin Concent Red Cell Distribution 16.7 H Width Platelet Count 282 Mean Platelet Volume 9.6 Immature Granulocytes % 0.300 Neutrophils % 80.7 H Lymphocytes % 9.2 L Monocytes % 8.4 Eosinophils % 0.3 Basophils % 1.1 Nucleated Red Blood 0.0 Cells % Immature Granulocytes # 0.030 Neutrophils # 7.3 Lymphocytes # 0.8 Monocytes # 0.8 Eosinophils # 0.0 Basophils # 0.1 Nucleated Red Blood 0.0 Cells # Sodium Level 139 Potassium Level 4.4 Chloride Level 101 Carbon Dioxide Level 28 Anion Gap 10 Blood Urea Nitrogen 20 Creatinine 4.86 H Est Glomerular Filtrat 15 L Rate mL/min Glucose Level 166 Calcium Level 8.5 Total Bilirubin 0.5 Direct Bilirubin 0.00 Indirect Bilirubin 0.5 Aspartate Amino 17 Transf (AST/SGOT) Alanine 30 Aminotransferase (ALT/SG PT) Alkaline Phosphatase 89 Total Protein 6.1 Albumin 3.1 L Globulin 3.00 Albumin/Globulin Ratio 1.03 Test 12/21/18 21:17 12/21/18 22:39 12/22/18 04:54 12/22/18 07:38 Bedside Glucose 82 155 Lactic Acid Level 1.5 White Blood Count 7.4 Red Blood Count 3.07 L Hemoglobin 8.7 L Hematocrit 28.2 L Mean Corpuscular Volume 91.9 Mean Corpuscular 28.3 L Hemoglobin Mean Corpuscular 30.9 L Hemoglobin Concent Red Cell Distribution 16.8 H Width Platelet Count 310 Mean Platelet Volume 10.5 H Immature Granulocytes % 0.400 Neutrophils % 69.9 Lymphocytes % 14.1 L Monocytes % 13.0 H Eosinophils % 1.1 Basophils % 1.5 Nucleated Red Blood 0.0 Cells % Immature Granulocytes # 0.030 Neutrophils # 5.2 Lymphocytes # 1.0 Monocytes # 1.0 H Eosinophils # 0.1 Basophils # 0.1 Nucleated Red Blood 0.0 Cells # Sodium Level 138 Potassium Level 4.3 Chloride Level 100 Carbon Dioxide Level 32 H Anion Gap 6 Blood Urea Nitrogen 17 Creatinine 4.80 H Est Glomerular Filtrat 15 L Rate mL/min Glucose Level 38 #*L Calcium Level 8.6 Triglycerides Level 37 Cholesterol Level 85 L LDL Cholesterol, 39 Calculated HDL Cholesterol 39 Cholesterol/HDL Ratio 2.1 Test 12/22/18 11:33 Bedside Glucose 94 Medications Medications Current Medications Vancomycin HCl (Vanco Iv Per Pharmacy) VANCOMYCIN PER PHARMACY PER PROTOCOL XX ; Start 12/18/18 at 09:30 Hydralazine HCl (Apresoline) 20 mg Q4 PRN IV HIGH BLOOD Last administered on 12/21/18 03:13; Admin Dose 20 MG; Start 12/18/18 at 09:30 Acetaminophen (Tylenol Tab) 650 mg Q4H PRN PO MILD PAIN(1-3)OR ELEVATED TEMP; Start 12/18/18 at 09:30 Acetaminophen/ Hydrocodone Bitart ([place] (5/325)) 1 tab Q4H PRN PO MODERATE PAIN LEVEL 4-6 Last administered on 12/22/18 00:00; Admin Dose 1 TAB; Start 12/18/18 at 09:30 Insulin Aspart (Novolog Insulin Pen) NOVOLOG *MILD* ALGORITHM WITH MEALS BEDTIME SC Last administered on 12/22/18 08:17; Admin Dose 1 UNIT; Start 12/18/18 at 12:00 Amlodipine Besylate (Norvasc) 10 mg DAILY PO Last administered on 12/22/18 08:41; Admin Dose 10 MG; Start 12/18/18 at 09:30 Aspirin (Halfprin) 81 mg DAILY PO Last administered on 12/22/18 08:41; Admin Do se 81 MG; Start 12/18/18 at 09:30 Atorvastatin Calcium (Lipitor) 80 mg QHS PO Last administered on 12/21/18 21:28; Admin Dose 80 MG; Start 12/18/18 at 21:00 Baclofen (Lioresal) 10 mg TID PO Last administered on 12/22/18 12:46; Admin Dose 10 MG; Start 12/18/18 at 13:00 Clopidogrel Bisulfate (plaVIX) 75 mg DAILY PO Last administered on 12/22/18 08:40; Admin Dose 75 MG; Start 12/18/18 at 09:30 Multivit/Ca Carb/ B Cmplx/FA/Prenat (Amarilis-Christina) 1 tab DAILY PO Last administered on 12/22/18 08:41; Admin Dose 1 TAB; Start 12/18/18 at 09:30 Mirtazapine (Remeron) 15 mg HS PO Last administered on 12/21/18 21:28; Admin Dose 15 MG; Start 12/18/18 at 21:00 Paroxetine HCl (Paxil) 10 mg DAILY PO Last administered on 12/22/18 08:41; Admin Dose 10 MG; Start 12/18/18 at 09:30 Zinc Sulfate (Zinc Sulfate) 220 mg DAILY PO Last administered on 12/22/18 08:40; Admin Dose 220 MG; Start 12/18/18 at 09:30 Sevelamer Carbonate (Renvela) 800 mg WITH MEALS PO Last administered on 12/22/18at 11:32; Admin Dose 800 MG; Start 12/18/18 at 11:30 Diagnostic Test (Pha) (Accu-Chek) 1 ea 02 XX ; Start 12/19/18 at 02:00 Miscellaneous Information 1 ea NOTE XX ; Start 12/18/18 at 13:00 Glucose (Glutose) 15 gm Q15M PRN PO DECREASED GLUCOSE Last administered on 12/19/18at 22:39; Admin Dose 15 GM; Start 12/18/18 at 13:00 Glucose (Glutose) 22.5 gm Q15M PRN PO DECREASED GLUCOSE Last administered on 12/19/18at 23:35; Admin Dose 22.5 GM; Start 12/18/18 at 13:00 Dextrose (D50w Syringe) 25 ml Q15M PRN IV DECREASED GLUCOSE; Start 12/18/18 at 13:00 Dextrose (D50w Syringe) 50 ml Q15M PRN IV DECREASED GLUCOSE Last administered on 12/22/18 07:09; Admin Dose 50 ML; Start 12/18/18 at 13:00 Glucagon (Glucagen) 1 mg Q15M PRN IM DECREASED GLUCOSE; Start 12/18/18 at 13:00 Glucose (Glutose) 15 gm Q15M PRN BUCCAL DECREASED GLUCOSE; Start 12/18/18 at 13:00 Epoetin Josias-epbx (Retacrit (Esrd)) 8,000 unit MoWeFr@1700 SC Last administered on 12/20/18 17:31; Admin Dose 8,000 UNIT; Start 12/18/18 at 17:00 Levofloxacin (Levaquin) 500 mg Q48H PO Last administered on 12/22/18 08:40; Admin Dose 500 MG; Start 12/20/18 at 08:00 Povidone Iodine (Povidone-Iodine) 1 applic BID TOP Last administered on 12/22/18 08:43; Admin Dose 1 APPLIC; Start 12/18/18 at 21:00 Sodium Hypochlorite (Dakins Diluted ()) 1 applic BID TP Last administered on 12/22/18 08:44; Admin Dose 1 APPLIC; Start 12/18/18 at 21:00 Multi-Ingredient Ointment (Eucerin Cream) 1 applic DAILY TOP Last administered on 12/22/18 08:42; Admin Dose 1 APPLIC; Start 12/19/18 at 10:28 Insulin Glargine (Lantus) 7 units DAILY@2000 SC Last administered on 12/21/18 22:31; Admin Dose 7 UNITS; Start 12/19/18 at 20:00 Metoprolol Tartrate (Lopressor) 25 mg BID PO Last administered on 12/22/18 08:41; Admin Dose 25 MG; Start 12/20/18 at 21:00 Insulin Aspart (Novolog Insulin Pen) 2 unit WITH MEALS SC Last administered on 12/22/18 11:53; Admin Dose 2 UNIT; Start 12/21/18 at 07:35 Lisinopril (Zestril) 20 mg DAILY PO Last administered on 12/22/18 08:43; Admin Dose 20 MG; Start 12/21/18 at 09:00 Dextrose/Sodium Chloride 1,000 ml @ 50 mls/hr Q20H IV Last administered on 12/22/18 08:46; Admin Dose 50 MLS/HR; Start 12/21/18 at 13:30 Ondansetron HCl (Zofran Inj) 4 mg Q6H PRN IV NAUSEA AND/OR VOMITING Last administered on 6/8/19at 15:23; Admin Dose 4 MG; Start 12/21/18 at 13:30 Miscellaneous Information (*Rx Drug Level Order Reminder*) [facility]... 0500 ONCE XX ; Start 12/23/18 at 05:00; Stop 12/23/18 at 05:01 JUWAN TAYLOR Dec 22, 2018 14:16
--- NOTE | 2018-12-22 14:31 | CONS ---
Assessment/Plan Assessment/Plan Problems: (1) Diabetes mellitus type 2 in nonobese Status: Chronic Comment: He is on a basal bolus regimen but I think were overshooting target. We could use some oral agents and then be able to decrease the insulin dosing. I am going to use linagliptin 5 mg daily and bromocriptine 2.5 mg nightly as a substitute for the product Cycloset. These note if he does have Parkinson's disease this may also help for that. 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 Status: Chronic Comment: As per podiatry Qualifiers: Qualified Codes: E11.621 - Type 2 diabetes mellitus with foot ulcer; L97.516 - Non-pressure chronic ulcer of other part of right foot with bone involvement without evidence of necrosis (3) Peripheral vascular disease Status: Chronic Comment: Vascular surgery has seen him and cleared him (4) Foot osteomyelitis, right Status: Chronic Comment: As per podiatric surgery Qualifiers: Qualified Codes: M86.271 - Subacute osteomyelitis, right ankle and foot (5) Hypertension Status: Chronic Comment: He has adequate control however he might do better use a slightly di fferent regimen. As such we did not increase his beta-blockade and his COLIN inhibitor for his heart and decrease the amlodipine so we do not get as much fluid retention (6) Grade I diastolic dysfunction Status: Chronic Comment: As above. Please note consideration for the usage of the diabetic drug pioglitazone is a consideration but with the diastolic dysfunction wish to put that further down the list (7) End-stage renal disease on hemodialysis Status: Chronic Comment: As per nephrology (8) A-V fistula Status: Chronic Comment: Noted. (9) Hyperlipidemia Status: Chronic Comment: On full dose statin therapy Qualifiers: Qualified Codes: E78.00 - Pure hypercholesterolemia, unspecified (10) Anemia Status: Chronic Comment: Stable on dialysis Qualifiers: Qualified Codes: N18.6 - End stage renal disease; D63.1 - Anemia in chronic kidney disease; Z99.2 - Dependence on renal dialysis Consultation Date/Type/Reason Admit Date/Time Dec 18, 2018 at 04:02 Date of Consultation: Dec 22, 2018 Type of Consult Endocrinology Reason for Consultation Diabetes mellitus labeled as type II with complications of end-stage renal disease, retinopathy, peripheral neuropathy. In addition status post CVA Requesting Provider: ADRIANA JUSTICE Date/Time of Note DATE: 12/22/18 TIME: 14:24 Hx of Present Illness Poncho 63-year-old male born in the [place]. Is referred due to having had hypoglycemia today. Patient has hesitant speech and actually has some findings that suggest the possibility of Parkinson's disease Constitutional: no complaints Respiratory: no complaints Cardiovascular: no complaints Gastrointestinal: no complaints Past Medical History Medical History: diabetes, high cholesterol, hypertension, renal disease (End- stage renal disease on hemodialysis 3 days a week), other (Status post CVA possibly multiple; peripheral vascular disease; osteomyelitis of the second toe; dysthymia; anemia; grade 1 diastolic dysfunction; former smoker) Home Meds Reported Medications Folic Acid/Vitamin B Comp W-C (Renal Multivitamin Tablet) 0.8 Mg Tablet, 1 TAB PO DAILY for 90 Days, #90 12/18/18 Glimepiride* (Glimepiride*) 2 Mg Tablet, 2 MG PO BID for 90 Days, #180 12/18/18 Clopidogrel Bisulfate (Clopidogrel) 75 Mg Tablet, 75 MG PO DAILY for 90 Days, #90 12/18/18 Levofloxacin* (Levofloxacin*) 500 Mg Tablet, 500 MG PO DAILY 12/18/18 Amlodipine Besylate* (Norvasc*) 10 Mg Tablet, 10 MG PO DAILY, TAB 07/12/18 Sevelamer Hcl* (Renagel*) 800 Mg Tablet, 800 MG PO WITH MEALS, TAB 07/12/18 Zinc Sulfate* (Zinc Sulfate*) 220 Mg Cap, 220 MG PO DAILY, CAP 07/12/18 Glipizide* (Glipizide*) 5 Mg Tablet, 5 MG PO AC BREAKFAST DINNER, TAB 07/12/18 Folic Acid/Vitamin B Comp W-C (Nephrocaps Capsule) 1 Mg Capsule, 1 MG PO DAILY, CAP 07/12/18 Atorvastatin* (Atorvastatin*) 80 Mg Tablet, 80 MG PO QHS, #30 TAB 07/12/18 Baclofen* (Baclofen*) 10 Mg Tablet, 10 MG PO TID, TAB 07/12/18 Mirtazapine* (Mirtazapine*) 15 Mg Tablet, 15 MG PO HS, TAB 07/12/18 Aspirin (Low Dose Aspirin) 81 Mg Tablet.dr, 81 MG PO DAILY, #30 TAB 07/12/18 Paroxetine Hcl* (Paxil*) 10 Mg Tablet, 10 MG PO DAILY, TAB 07/12/18 Medications Current Medications Vancomycin HCl (Vanco Iv Per Pharmacy) VANCOMYCIN PER PHARMACY PER PROTOCOL XX ; Start 12/18/18 at 09:30 Hydralazine HCl (Apresoline) 20 mg Q4 PRN IV HIGH BLOOD Last administered on 12/21/18 03:13; Admin Dose 20 MG; Start 12/18/18 at 09:30 Acetaminophen (Tylenol Tab) 650 mg Q4H PRN PO MILD PAIN(1-3)OR ELEVATED TEMP; Start 12/18/18 at 09:30 Acetaminophen/ Hydrocodone Bitart (Paragould (5/325)) 1 tab Q4H PRN PO MODERATE PAIN LEVEL 4-6 Last administered on 12/22/18 00:00; Admin Dose 1 TAB; Start 12/18/18 at 09:30 Insulin Aspart (Novolog Insulin Pen) NOVOLOG *MILD* ALGORITHM WITH MEALS BEDTI ME SC Last administered on 12/22/18 08:17; Admin Dose 1 UNIT; Start 12/18/18 at 12:00 Amlodipine Besylate (Norvasc) 10 mg DAILY PO Last administered on 12/22/18 08:41; Admin Dose 10 MG; Start 12/18/18 at 09:30 Aspirin (Halfprin) 81 mg DAILY PO Last administered on 12/22/18 08:41; Admin Dose 81 MG; Start 12/18/18 at 09:30 Atorvastatin Calcium (Lipitor) 80 mg QHS PO Last administered on 12/21/18 21 :28; Admin Dose 80 MG; Start 12/18/18 at 21:00 Baclofen (Lioresal) 10 mg TID PO Last administered on 12/22/18 12:46; Admin Dose 10 MG; Start 12/18/18 at 13:00 Clopidogrel Bisulfate (plaVIX) 75 mg DAILY PO Last administered on 12/22/18 08:40; Admin Dose 75 MG; Start 12/18/18 at 09:30 Multivit/Ca Carb/ B Cmplx/FA/Prenat (Amarilis-Christina) 1 tab DAILY PO Last administered on 12/22/18 08:41; Admin Dose 1 TAB; Start 12/18/18 at 09:30 Mirtazapine (Remeron) 15 mg HS PO Last administered on 12/21/18 21:28; Admin Dose 15 MG; Start 12/18/18 at 21:00 Paroxetine HCl (Paxil) 10 mg DAILY PO Last administered on 12/22/18 08:41; Admin Dose 10 MG; Start 12/18/18 at 09:30 Zinc Sulfate (Zinc Sulfate) 220 mg DAILY PO Last administered on 12/22/18 08:40; Admin Dose 220 MG; Start 12/18/18 at 09:30 Sevelamer Carbonate (Renvela) 800 mg WITH MEALS PO Last administered on 12/22/18 11:32; Admin Dose 800 MG; Start 12/18/18 at 11:30 Diagnostic Test (Pha) (Accu-Chek) 1 ea 02 XX ; Start 12/19/18 at 02:00 Miscellaneous Information 1 ea NOTE XX ; Start 12/18/18 at 13:00 Glucose (Glutose) 15 gm Q15M PRN PO DECREASED GLUCOSE Last administered on 12/19/18 22:39; Admin Dose 15 GM; Start 12/18/18 at 13:00 Glucose (Glutose) 22.5 gm Q15M PRN PO DECREASED GLUCOSE Last administered on 12/19/18 23:35; Admin Dose 22.5 GM; Start 12/18/18 at 13:00 Dextrose (D50w Syringe) 25 ml Q15M PRN IV DECREASED GLUCOSE; Start 12/18/18 at 13:00 Dextrose (D50w Syringe) 50 ml Q15M PRN IV DECREASED GLUCOSE Last administered on 12/22/18 07:09; Admin Dose 50 ML; Start 12/18/18 at 13:00 Glucagon (Glucagen) 1 mg Q15M PRN IM DECREASED GLUCOSE; Start 12/18/18 at 13:00 Glucose (Glutose) 15 gm Q15M PRN BUCCAL DECREASED GLUCOSE; Start 12/18/18 at 13:00 Epoetin Josias-epbx (Retacrit (Esrd)) 8,000 unit MoWeFr@1700 SC Last administered on 12/20/18 17:31; Admin Dose 8,000 UNIT; Start 12/18/18 at 17:00 Levofloxacin (Levaquin) 500 mg Q48H PO Last administered on 12/22/18 08:40; Admin Dose 500 MG; Start 12/20/18 at 08:00 Povidone Iodine (Povidone-Iodine) 1 applic BID TOP Last administered on 12/22/18 08:43; Admin Dose 1 APPLIC; Start 12/18/18 at 21:00 Sodium Hypochlorite (Dakins Diluted ()) 1 applic BID TP Last administered on 12/22/18 08:44; Admin Dose 1 APPLIC; Start 12/18/18 at 21:00 Multi-Ingredient Ointment (Eucerin Cream) 1 applic DAILY TOP Last administered on 12/22/18 08:42; Admin Dose 1 APPLIC; Start 12/19/18 at 10:28 Insulin Glargine (Lantus) 7 units DAILY@2000 SC Last administered on 12/21/18 22:31; Admin Dose 7 UNITS; Start 12/19/18 at 20:00 Metoprolol Tartrate (Lopressor) 25 mg BID PO Last administered on 12/22/18 08:41; Admin Dose 25 MG; Start 12/20/18 at 21:00 Insulin Aspart (Novolog Insulin Pen) 2 unit WITH MEALS SC Last administered on 12/22/18 11:53; Admin Dose 2 UNIT; Start 12/21/18 at 07:35 Lisinopril (Zestril) 20 mg DAILY PO Last administered on 12/22/18 08:43; Admin Dose 20 MG; Start 12/21/18 at 09:00 Dextrose/Sodium Chloride 1,000 ml @ 50 mls/hr Q20H IV Last administered on 12/22/18 08:46; Admin Dose 50 MLS/HR; Start 12/21/18 at 13:30 Ondansetron HCl (Zofran Inj) 4 mg Q6H PRN IV NAUSEA AND/OR VOMITING Last administered on 12/21/18 15:23; Admin Dose 4 MG; Start 12/21/18 at 13:30 Miscellaneous Information (*Rx Drug Level Order Reminder*) [facility] W/ AM LABS... 0500 ONCE XX ; Start 12/23/18 at 05:00; Stop 12/23/18 at 05:01 Allergies: Coded Allergies: clindamycin (Verified Allergy, Severe, 12/18/18) Past Surgical History Past Surgical Hx: other (Status post left upper extremity AV fistula creation 2 years ago, status post bilateral cataract surgery) Family History Significant Family History: no pertinent family hx Social History Alcohol Use: none Smoking Status: Former smoker Drug Use: none Exam/Review of Systems Exam Vitals Vital Signs Date Temp Pulse Resp B/P (MAP) Pulse Ox O2 O2 Flow FiO2 Time Delivery Rate 12/22/18 78 12:00 12/22/18 97.9 18 128/72 96 11:51 (90) 12/21/18 Room Air 17:23 Intake and Output 12/21/18 12/21/18 12/22/18 1515:00 23:00 07:00 IntakeIntake Total 280 ml 100 ml 200 ml OutputOutput Total 1400 ml BalanceBalance 280 ml -1300 ml 200 ml Exam Pleasant male with hesitant speech and cogwheeling of the upper extremities Constitutional: alert Head: normocephalic, atraumatic Respiratory: clear to auscultation, normal air movement Cardiovascular: regular rate and rhythm, nl pulses Gastrointestinal: soft, nl liver, spleen, non-tender Neurological: other (Cogwheeling upper extremities) Results Result Diagram: 12/22/18 0454 12/22/18 0454 Results 24hrs Laboratory Tests Test 12/21/18 14:28 12/21/18 16:40 12/21/18 17:14 12/21/18 17:31 Bedside Glucose 221 H 158 Troponin I < 0.012 White Blood Count 9.1 Red Blood Count 2.85 L Hemoglobin 8.2 L Hematocrit 26.3 L Mean Corpuscular Volume 92.3 Mean Corpuscular 28.8 L Hemoglobin Mean Corpuscular 31.2 L Hemoglobin Concent Red Cell Distribution 16.7 H Width Platelet Count 282 Mean Platelet Volume 9.6 Immature Granulocytes % 0.300 Neutrophils % 80.7 H Lymphocytes % 9.2 L Monocytes % 8.4 Eosinophils % 0.3 Basophils % 1.1 Nucleated Red Blood 0.0 Cells % Immature Granulocytes # 0.030 Neutrophils # 7.3 Lymphocytes # 0.8 Monocytes # 0.8 Eosinophils # 0.0 Basophils # 0.1 Nucleated Red Blood 0.0 Cells # Sodium Level 139 Potassium Level 4.4 Chloride Level 101 Carbon Dioxide Level 28 Anion Gap 10 Blood Urea Nitrogen 20 Creatinine 4.86 H Est Glomerular Filtrat 15 L Rate mL/min Glucose Level 166 Calcium Level 8.5 Total Bilirubin 0.5 Direct Bilirubin 0.00 Indirect Bilirubin 0.5 Aspartate Amino 17 Transf (AST/SGOT) Alanine 30 Aminotransferase (ALT/SG PT) Alkaline Phosphatase 89 Total Protein 6.1 Albumin 3.1 L Globulin 3.00 Albumin/Globulin Ratio 1.03 Test 12/21/18 21:17 12/21/18 22:39 12/22/18 04:54 12/22/18 07:38 Bedside Glucose 82 155 Lactic Acid Level 1.5 White Blood Count 7.4 Red Blood Count 3.07 L Hemoglobin 8.7 L Hematocrit 28.2 L Mean Corpuscular Volume 91.9 Mean Corpuscular 28.3 L Hemoglobin Mean Corpuscular 30.9 L Hemoglobin Concent Red Cell Distribution 16.8 H Width Platelet Count 310 Mean Platelet Volume 10.5 H Immature Granulocytes % 0.400 Neutrophils % 69.9 Lymphocytes % 14.1 L Monocytes % 13.0 H Eosinophils % 1.1 Basophils % 1.5 Nucleated Red Blood 0.0 Cells % Immature Granulocytes # 0.030 Neutrophils # 5.2 Lymphocytes # 1.0 Monocytes # 1.0 H Eosinophils # 0.1 Basophils # 0.1 Nucleated Red Blood 0.0 Cells # Sodium Level 138 Potassium Level 4.3 Chloride Level 100 Carbon Dioxide Level 32 H Anion Gap 6 Blood Urea Nitrogen 17 Creatinine 4.80 H Est Glomerular Filtrat 15 L Rate mL/min Glucose Level 38 #*L Calcium Level 8.6 Triglycerides Level 37 Cholesterol Level 85 L LDL Cholesterol, 39 Calculated HDL Cholesterol 39 Cholesterol/HDL Ratio 2.1 Test 12/22/18 11:33 Bedside Glucose 94 Medications Medication Current Medications Vancomycin HCl (Vanco Iv Per Pharmacy) VANCOMYCIN PER PHARMACY PER PROTOCOL XX ; Start 12/18/18 at 09:30 Hydralazine HCl (Apresoline) 20 mg Q4 PRN IV HIGH BLOOD Last administered on 12/21/18at 03:13; Admin Dose 20 MG; Start 12/18/18 at 09:30 Acetaminophen (Tylenol Tab) 650 mg Q4H PRN PO MILD PAIN(1-3)OR ELEVATED TEMP; Start 12/18/18 at 09:30 Acetaminophen/ Hydrocodone Bitart ([place]ag[place] (5/325)) 1 tab Q4H PRN PO MODERATE PAIN LEVEL 4-6 Last administered on 12/22/18at 00:00; Admin Dose 1 TAB; Start 12/18/18 at 09:30 Insulin Aspart (Novolog Insulin Pen) NOVOLOG *MILD* ALGORITHM WITH MEALS BEDTIME SC Last administered on 12/22/18 08:17; Admin Dose 1 UNIT; Start 12/18/18 at 12:00 Amlodipine Besylate (Norvasc) 10 mg DAILY PO Last administered on 12/22/18 08:41; Admin Dose 10 MG; Start 12/18/18 at 09:30 Aspirin (Halfprin) 81 mg DAILY PO Last administered on 12/22/18 08:41; Admin Dose 81 MG; Start 12/18/18 at 09:30 Atorvastatin Calcium (Lipitor) 80 mg QHS PO Last administered on 12/21/18 21:28; Admin Dose 80 MG; Start 12/18/18 at 21:00 Baclofen (Lioresal) 10 mg TID PO Last administered on 12/22/18 12:46; Admin Dose 10 MG; Start 12/18/18 at 13:00 Clopidogrel Bisulfate (plaVIX) 75 mg DAILY PO Last administered on 12/22/18 08:40; Admin Dose 75 MG; Start 12/18/18 at 09:30 Multivit/Ca Carb/ B Cmplx/FA/Prenat (Amarilis-Christina) 1 tab DAILY PO Last administered on 12/22/18 08:41; Admin Dose 1 TAB; Start 12/18/18 at 09:30 Mirtazapine (Remeron) 15 mg HS PO Last administered on 12/21/18 21:28; Admin Dose 15 MG; Start 12/18/18 at 21:00 Paroxetine HCl (Paxil) 10 mg DAILY PO Last administered on 12/22/18 08:41; Admin Dose 10 MG; Start 12/18/18 at 09:30 Zinc Sulfate (Zinc Sulfate) 220 mg DAILY PO Last administered on 12/22/18 08:40; Admin Dose 220 MG; Start 12/18/18 at 09:30 Sevelamer Carbonate (Renvela) 800 mg WITH MEALS PO Last administered on 12/22/18 11:32; Admin Dose 800 MG; Start 12/18/18 at 11:30 Diagnostic Test (Pha) (Accu-Chek) 1 ea 02 XX ; Start 12/19/18 at 02:00 Miscellaneous Information 1 ea NOTE XX ; Start 12/18/18 at 13:00 Glucose (Glutose) 15 gm Q15M PRN PO DECREASED GLUCOSE Last administered on 12/19/18 22:39; Admin Dose 15 GM; Start 12/18/18 at 13:00 Glucose (Glutose) 22.5 gm Q15M PRN PO DECREASED GLUCOSE Last administered on 12/19/18 23:35; Admin Dose 22.5 GM; Start 12/18/18 at 13:00 Dextrose (D50w Syringe) 25 ml Q15M PRN IV DECREASED GLUCOSE; Start 12/18/18 at 13:00 Dextrose (D50w Syringe) 50 ml Q15M PRN IV DECREASED GLUCOSE Last administered on 12/22/18 07:09; Admin Dose 50 ML; Start 12/18/18 at 13:00 Glucagon (Glucagen) 1 mg Q15M PRN IM DECREASED GLUCOSE; Start 12/18/18 at 13:00 Glucose (Glutose) 15 gm Q15M PRN BUCCAL DECREASED GLUCOSE; Start 12/18/18 at 13:00 Epoetin Josias-epbx (Retacrit (Esrd)) 8,000 unit MoWeFr@1700 SC Last administered on 12/20/18 17:31; Admin Dose 8,000 UNIT; Start 12/18/18 at 17:00 Levofloxacin (Levaquin) 500 mg Q48H PO Last administered on 12/22/18 08:40; Admin Dose 500 MG; Start 12/20/18 at 08:00 Povidone Iodine (Povidone-Iodine) 1 applic BID TOP Last administered on 12/22/18 08:43; Admin Dose 1 APPLIC; Start 12/18/18 at 21:00 Sodium Hypochlorite (Dakins Diluted ()) 1 applic BID TP Last administered on 12/22/18 08:44; Admin Dose 1 APPLIC; Start 12/18/18 at 21:00 Multi-Ingredient Ointment (Eucerin Cream) 1 applic DAILY TOP Last administered on 12/22/18 08:42; Admin Dose 1 APPLIC; Start 12/19/18 at 10:28 Insulin Glargine (Lantus) 7 units DAILY@2000 SC Last administered on 12/21/18 22:31; Admin Dose 7 UNITS; Start 12/19/18 at 20:00 Metoprolol Tartrate (Lopressor) 25 mg BID PO Last administered on 12/22/18 08:41; Admin Dose 25 MG; Start 12/20/18 at 21:00 Insulin Aspart (Novolog Insulin Pen) 2 unit WITH MEALS SC Last administered on 12/22/18at 11:53; Admin Dose 2 UNIT; Start 12/21/18 at 07:35 Lisinopril (Zestril) 20 mg DAILY PO Last administered on 12/22/18at 08:43; Admin Dose 20 MG; Start 12/21/18 at 09:00 Dextrose/Sodium Chloride 1,000 ml @ 50 mls/hr Q20H IV Last administered on 12/22/18 08:46; Admin Dose 50 MLS/HR; Start 12/21/18 at 13:30 Ondansetron HCl (Zofran Inj) 4 mg Q6H PRN IV NAUSEA AND/OR VOMITING Last adm inistered on 12/21/18at 15:23; Admin Dose 4 MG; Start 12/21/18 at 13:30 Miscellaneous Information (*Rx Drug Level Order Reminder*) [facility] W/ AM LABS... 0500 ONCE XX ; Start 12/23/18 at 05:00; Stop 12/23/18 at 05:01 RADHA HENSON MD Dec 22, 2018 14:31
--- NOTE | 2018-12-22 14:52 | CONS ---
Assessment/Plan Assessment/Plan Hospital Course (Demo Recall) ID PROGRESS NOTE CURRENT ABX: DAY # =>Vanco IV + Levaquin 24H INTERVAL SUMMARY * Clinically stable == Per Dr. Callaway patient was formerly speaking in sentences == with increased aphasia --He has hx of CVA * Awake, alert, cataract w/blindness, aphasic, No fevers, he moves all extremities w/shaking of BUEXT * 12/20/18 CT Brain: No acute intracranial findings.Old right frontoparietal infarct, with additional old smaller infarct in the right basal ganglia and maza radiata. Background chronic microvascular ischemic disease. MICRO/OTHER * 12/18/18 BCX (-) PHYSICAL EXAMINATION: GENERAL: VSS, NAD, frail chronic debility - aphasic HEENT: AT, NC, anicteric, right eye cataract, left eye with larger pupil NECK: Supple, CHEST: Equal chest rise bilaterally, without dyspnea on observation HEART: Pulse RRR ABDOMEN: Soft : deferred EXTREMITIES: Warm, dry == muscle wasting, BLEXT wounds SKIN: No rash, no diaphoresis ID ASSESSMENT 63 yo M w/Hx of CVA admit with: 1. Bilateral lower extremities wounds with cellulitis and osteomyelitis 2. End-stage renal disease 3. Diabetes 4. Diabetic neuropathy 5. Recurrent CVA ? w/ aphasia, hx of old CVA on CT 12/20/18 w/microischemic disease (-)MRSA Nares ABX ALLERGIES: None to ABX INVASIVES: PIV CURRENT ABX: DAY # > Vanco IV + Levaquin ID RECOMMENDATIONS/PLAN: 1. Continue current ABX 2. ID RN TELEHEALTH colleague to return Sunday for f/u . . Consultation Date/Type/Reason Admit Date/Time Dec 18, 2018 at 04:02 Initial Consult Date 12/18/18 Requesting Provider: ADRIANA JUSTICE Date/Time of Note DATE: 12/22/18 TIME: 14:50 Exam/Review of Systems Exam Vitals Vital Signs Date Temp Pulse Resp B/P (MAP) Pulse Ox O2 O2 Flow FiO2 Time Delivery Rate 12/22/18 78 12:00 12/22/18 97.9 18 128/72 96 11:51 (90) 12/21/18 Room Air 17:23 Intake and Output 12/21/18 12/21/18 12/22/18 1515:00 23:00 07:00 IntakeIntake Total 280 ml 100 ml 200 ml OutputOutput Total 1400 ml BalanceBalance 280 ml -1300 ml 200 ml Results Result Diagram: 12/22/18 0454 12/22/18 0454 Results 24hrs Laboratory Tests Test 12/21/18 16:40 12/21/18 17:14 12/21/18 17:31 12/21/18 21:17 Troponin I < 0.012 White Blood Count 9.1 Red Blood Count 2.85 L Hemoglobin 8.2 L Hematocrit 26.3 L Mean Corpuscular Volume 92.3 Mean Corpuscular 28.8 L Hemoglobin Mean Corpuscular 31.2 L Hemoglobin Concent Red Cell Distribution 16.7 H Width Platelet Count 282 Mean Platelet Volume 9.6 Immature Granulocytes % 0.300 Neutrophils % 80.7 H Lymphocytes % 9.2 L Monocytes % 8.4 Eosinophils % 0.3 Basophils % 1.1 Nucleated Red Blood 0.0 Cells % Immature Granulocytes # 0.030 Neutrophils # 7.3 Lymphocytes # 0.8 Monocytes # 0.8 Eosinophils # 0.0 Basophils # 0.1 Nucleated Red Blood 0.0 Cells # Sodium Level 139 Potassium Level 4.4 Chloride Level 101 Carbon Dioxide Level 28 Anion Gap 10 Blood Urea Nitrogen 20 Creatinine 4.86 H Est Glomerular Filtrat 15 L Rate mL/min Glucose Level 166 Calcium Level 8.5 Total Bilirubin 0.5 Direct Bilirubin 0.00 Indirect Bilirubin 0.5 Aspartate Amino 17 Transf (AST/SGOT) Alanine 30 Aminotransferase (ALT/SG PT) Alkaline Phosphatase 89 Total Protein 6.1 Albumin 3.1 L Globulin 3.00 Albumin/Globulin Ratio 1.03 Bedside Glucose 158 82 Test 12/21/18 22:39 12/22/18 04:54 12/22/18 07:38 12/22/18 11:33 Lactic Acid Level 1.5 White Blood Count 7.4 Red Blood Count 3.07 L Hemoglobin 8.7 L Hematocrit 28.2 L Mean Corpuscular Volume 91.9 Mean Corpuscular 28.3 L Hemoglobin Mean Corpuscular 30.9 L Hemoglobin Concent Red Cell Distribution 16.8 H Width Platelet Count 310 Mean Platelet Volume 10.5 H Immature Granulocytes % 0.400 Neutrophils % 69.9 Lymphocytes % 14.1 L Monocytes % 13.0 H Eosinophils % 1.1 Basophils % 1.5 Nucleated Red Blood 0.0 Cells % Immature Granulocytes # 0.030 Neutrophils # 5.2 Lymphocytes # 1.0 Monocytes # 1.0 H Eosinophils # 0.1 Basophils # 0.1 Nucleated Red Blood 0.0 Cells # Sodium Level 138 Potassium Level 4.3 Chloride Level 100 Carbon Dioxide Level 32 H Anion Gap 6 Blood Urea Nitrogen 17 Creatinine 4.80 H Est Glomerular Filtrat 15 L Rate mL/min Glucose Level 38 #*L Calcium Level 8.6 Triglycerides Level 37 Cholesterol Level 85 L LDL Cholesterol, 39 Calculated HDL Cholesterol 39 Cholesterol/HDL Ratio 2.1 Bedside Glucose 155 94 Medications Medication Current Medications Vancomycin HCl (Vanco Iv Per Pharmacy) VANCOMYCIN PER PHARMACY PER PROTOCOL XX ; Start 12/18/18 at 09:30 Hydralazine HCl (Apresoline) 20 mg Q4 PRN IV HIGH BLOOD Last administered on 12/21/18 03:13; Admin Dose 20 MG; Start 12/18/18 at 09:30 Acetaminophen (Tylenol Tab) 650 mg Q4H PRN PO MILD PAIN(1-3)OR ELEVATED TEMP; Start 12/18/18 at 09:30 Acetaminophen/ Hydrocodone Bitart ([place] (5/325)) 1 tab Q4H PRN PO MODERATE PAIN LEVEL 4-6 Last administered on 12/22/18 00:00; Admin Dose 1 TAB; Start 12/18/18 at 09:30 Insulin Aspart (Novolog Insulin Pen) NOVOLOG *MILD* ALGORITHM WITH MEALS BEDTIME SC Last administered on 12/22/18 08:17; Admin Dose 1 UNIT; Start 12/18/18 at 12:00 Aspirin (Halfprin) 81 mg DAILY PO Last administered on 12/22/18 08:41; Admin Dose 81 MG; Start 12/18/18 at 09:30 Atorvastatin Calcium (Lipitor) 80 mg QHS PO Last administered on 12/21/18 21:28; Admin Dose 80 MG; Start 12/18/18 at 21:00 Baclofen (Lioresal) 10 mg TID PO Last administered on 12/22/18 12:46; Admin Dose 10 MG; Start 12/18/18 at 13:00 Clopidogrel Bisulfate (plaVIX) 75 mg DAILY PO Last administered on 12/22/18 08:40; Admin Dose 75 MG; Start 12/18/18 at 09:30 Multivit/Ca Carb/ B Cmplx/FA/Prenat (Amarilis-Christina) 1 tab DAILY PO Last administered on 12/22/18 08:41; Admin Dose 1 TAB; Start 12/18/18 at 09:30 Mirtazapine (Remeron) 15 mg HS PO Last administered on 12/21/18 21:28; Admin Dose 15 MG; Start 12/18/18 at 21:00 Paroxetine HCl (Paxil) 10 mg DAILY PO Last administered on 12/22/18 08:41; Admin Dose 10 MG; Start 12/18/18 at 09:30 Zinc Sulfate (Zinc Sulfate) 220 mg DAILY PO Last administered on 12/22/18 08:40; Admin Dose 220 MG; Start 12/18/18 at 09:30 Sevelamer Carbonate (Renvela) 800 mg WITH MEALS PO Last administered on 12/22/18 11:32; Admin Dose 800 MG; Start 12/18/18 at 11:30 Diagnostic Test (Pha) (Accu-Chek) 1 ea 02 XX ; Start 12/19/18 at 02:00 Miscellaneous Information 1 ea NOTE XX ; Start 12/18/18 at 13:00 Glucose (Glutose) 15 gm Q15M PRN PO DECREASED GLUCOSE Last administered on 12/19/18 22:39; Admin Dose 15 GM; Start 12/18/18 at 13:00 Glucose (Glutose) 22.5 gm Q15M PRN PO DECREASED GLUCOSE Last administered on 12/19/18 23:35; Admin Dose 22.5 GM; Start 12/18/18 at 13:00 Dextrose (D50w Syringe) 25 ml Q15M PRN IV DECREASED GLUCOSE; Start 12/18/18 at 13:00 Dextrose (D50w Syringe) 50 ml Q15M PRN IV DECREASED GLUCOSE Last administered on 12/22/18 07:09; Admin Dose 50 ML; Start 12/18/18 at 13:00 Glucagon (Glucagen) 1 mg Q15M PRN IM DECREASED GLUCOSE; Start 12/18/18 at 13:00 Glucose (Glutose) 15 gm Q15M PRN BUCCAL DECREASED GLUCOSE; Start 12/18/18 at 13:00 Epoetin Josias-epbx (Retacrit (Esrd)) 8,000 unit MoWeFr@1700 SC Last administered on 6/7/19at 17:31; Admin Dose 8,000 UNIT; Start 12/18/18 at 17:00 Levofloxacin (Levaquin) 500 mg Q48H PO Last administered on 12/22/18 08:40; Admin Dose 500 MG; Start 12/20/18 at 08:00 Povidone Iodine (Povidone-Iodine) 1 applic BID TOP Last administered on 12/22/18 08:43; Admin Dose 1 APPLIC; Start 12/18/18 at 21:00 Sodium Hypochlorite (Dakins Diluted ()) 1 applic BID TP Last administered on 12/22/18 08:44; Admin Dose 1 APPLIC; Start 12/18/18 at 21:00 Multi-Ingredient Ointment (Eucerin Cream) 1 applic DAILY TOP Last administered on 12/22/18 08:42; Admin Dose 1 APPLIC; Start 12/19/18 at 10:28 Dextrose/Sodium Chloride 1,000 ml @ 50 mls/hr Q20H IV Last administered on 12/22/18 08:46; Admin Dose 50 MLS/HR; Start 12/21/18 at 13:30 Ondansetron HCl (Zofran Inj) 4 mg Q6H PRN IV NAUSEA AND/OR VOMITING Last administered on 12/21/18 15:23; Admin Dose 4 MG; Start 12/21/18 at 13:30 Miscellaneous Information (*Rx Drug Level Order Reminder*) [facility] W/ AM LABS... 0500 ONCE XX ; Start 12/23/18 at 05:00; Stop 12/23/18 at 05:01 Amlodipine Besylate (Norvasc) 5 mg DAILY PO ; Start 12/23/18 at 09:00 Insulin Glargine (Lantus) 3 units DAILY@2000 SC ; Start 12/22/18 at 20:00 Lisinopril (Zestril) 40 mg DAILY PO ; Start 12/23/18 at 09:00 Metoprolol Tartrate (Lopressor) 50 mg BID PO ; Start 12/22/18 at 21:00 Linagliptin (Tradjenta) 5 mg DAILY PO ; Start 12/22/18 at 14:30 Bromocriptine Mesylate (Parlodel) 2.5 mg QHS PO ; Start 12/22/18 at 21:00 Diagnostic Test (Pha) (Accu-Chek) 1 ea 2 HOURS AFTER MEALS XX ; Start 12/22/18 at 20:00; Status UNV Diagnostic Test (Pha) (Accu-Chek) 1 ea AC MEALS XX ; Start 12/22/18 at 17:30; Status UNV HELEN TRIANA NP Dec 22, 2018 14:52
[2018-12-22] MEDS: LINAGLIPTIN 5 MG TABLET PO SCH (15:26)
[2018-12-22] MEDS: MIRTAZAPINE 15 MG TAB PO SCH (21:39)
[2018-12-22] MEDS: ATORVASTATIN 80 MG TAB PO SCH (21:39)
[2018-12-22] MEDS: METOPROLOL 50 MG TAB PO SCH (21:40)
[2018-12-22] MEDS: BROMOCRIPTINE 2.5 MG TAB PO SCH (21:48)
[2018-12-22] MEDS: INSULIN GLARGINE [LANTus] (100 UNITS/ML) SYG SC SCH (21:59)
[2018-12-23] VITALS (24 sets, daily range): BP systolic 114–173; BP diastolic 57–84; PULSE 73–93; RESP 16–19
[2018-12-23] MEDS: ACCU-CHEK XX SCH ×7 (02:00→20:35)
[2018-12-23] MEDS: ONDANSETRON 4 MG INJ IV PRN (05:05)
[2018-12-23] MEDS: DEXTROSE 5%-0.45% NACL 1,000 ML IV SCH (07:00)
[2018-12-23] MEDS: SEVELAMER CARBONATE 800 MG TABLET PO SCH ×3 (08:00→16:04)
[2018-12-23] MEDS: BACLOFEN 10 MG TAB PO SCH ×3 (08:07→20:26)
[2018-12-23] MEDS: PAROXETINE 10 MG TAB PO SCH (08:07)
[2018-12-23] MEDS: LINAGLIPTIN 5 MG TABLET PO SCH (08:07)
[2018-12-23] MEDS: METOPROLOL 50 MG TAB PO SCH ×2 (08:07→20:27)
[2018-12-23] MEDS: ASPIRIN (EC) 81 MG TAB PO SCH (08:07)
[2018-12-23] MEDS: MULTIVIT/CA CARB/B CMPLX/FA TAB PO SCH (08:07)
[2018-12-23] MEDS: CLOPIDOGREL 75 MG TAB PO SCH (08:07)
[2018-12-23] MEDS: AMLODIPINE 5 MG TAB PO SCH (08:07)
[2018-12-23] MEDS: LISINOPRIL 20 MG TAB PO SCH (08:07)
[2018-12-23] MEDS: ZINC SULFATE 220 MG CAP PO SCH (08:08)
[2018-12-23] MEDS: POVIDONE IODINE 10% 28.4 GM OINT TOP SCH ×2 (08:09→20:33)
[2018-12-23] MEDS: DAKINS 0.0125%(1/40) 473 ML SOLUTION TP SCH ×2 (08:09→20:27)
[2018-12-23] MEDS: EUCERIN 113 GM CR TOP SCH (08:09)
[2018-12-23] MEDS: INSULIN ASPART [NOVOLOG] 3 ML PEN SC SCH ×4 (08:11→21:00)
--- NOTE | 2018-12-23 09:33 | PN ---
DATE: 12/23/2018 SUBJECTIVE: The patient is stable. No events overnight. The patient is pending surgery today. No other events noted. OBJECTIVE: VITAL SIGNS: Blood pressure is 114/57, pulse 73, respirations 17, temperature 98.2. HEENT: Head is normocephalic. NECK: Supple. HEART: Regular rate. LUNGS: Show diminished breath sounds at the base. ABDOMEN: Soft, nontender to palpation without rebound or guarding. EXTREMITIES: Negative for clubbing, cyanosis, no edema. DERMATOLOGIC: No rashes. MUSCULOSKELETAL: No joint effusion. NEUROLOGIC: No change in exam. MEDICATIONS: Reviewed. LABORATORY DATA: Reviewed. ASSESSMENT AND PLAN: 1. End-stage renal disease. Plan is for hemodialysis today. 2. Hyperkalemia, resolved. 3. Anemia. Continue to monitor hemoglobin and hematocrit levels. Continue Epogen. 4. Mineral bone disorder. Monitor calcium and phosphorus levels. 5. Diabetic foot ulcer. The patient is pending surgery, possible amputation. Continue to monitor. 6. Diabetes. Continue current insulin regimen. 7. History of cerebrovascular accident. 8. Hypertension. Blood pressure is improved. Continue current medical management. 9. Encephalopathy, etiology is toxic metabolic. 10. Dyslipidemia. Continue to monitor. Dictated By: RUFUS VEGA DO NR/NTS Conf#: [id number] DID#: [id number] CC: JACKI LARA MD; BLAINE FAIRBANKS DPM;*EndCC*
[2018-12-23] MEDS: VANCOMYCIN 1 GM 250 ML IVPB SCH (11:53)
--- NOTE | 2018-12-23 12:10 | CONS ---
Assessment/Plan Assessment/Plan Hospital Course (Demo Recall) IMPRESSION: 1. Preoperative evaluation prior to possible toe amputation and possible need for further evaluation.-neg trop x 3. NL EF by echo. Ok to proceed with toe amputation under nerve block or MAC at moderate CV risk from cardiac stndpoint but have concern for neuological status 2. Hypertension-well controlled 3. History of dyslipidemia. 4. Peripheral arterial disease with nonhealing lower extremity ulcers. 5. Nonhealing lower extremity ulcers. 6. Cellulitis. 7. Diabetes mellitus. 8. Psychiatric disorder. 9. New change in MS-? CVA-head CT 12/20 neg for acute changes. ECG most recent without acute changes. Again today with acute changes in MS Recc: -Now on tele -serial ecg's -Continue BB/CCB and now zestril and follow BP closely and use PRN antihypertensives as necessary -Continue asa/plavix -Continue statin -Continue abx's and f/u cx dta -Continue local wound care -HD as tolerated -? neuro consult Consultation Date/Type/Reason Admit Date/Time Dec 18, 2018 at 04:02 Initial Consult Date 12/18/18 Type of Consult Cardiology Reason for Consultation HTN/preop Requesting Provider: ADRIANA JUSTICE Date/Time of Note DATE: 12/23/18 TIME: 12:06 Exam/Review of Systems Vital Signs Vitals Vital Signs Date Temp Pulse Resp B/P (MAP) Pulse Ox O2 O2 Flow FiO2 Time Delivery Rate 12/23/18 89 12:00 12/23/18 16 155/75 98 Room Air 11:24 (101) 12/23/18 98.2 07:24 Intake and Output 12/22/18 12/22/18 12/23/18 1515:00 23:00 07:00 IntakeIntake Total 840 ml OutputOutput Total 2 ml BalanceBalance 840 ml -2 ml Exam Exam Review of Systems: CONSTITUTIONAL: No fevers, chills. PULMONARY: No sob CARDIOVASCULAR: No chest pain/palpitations GASTROINTESTINAL: No nausea/vomiting. GENITOURINARY: No hematuria/dysuria. MUSCULOSKELETAL: No myagias/arthalgias. PSYCHIATRIC: The patient denies depression. NEUROLOGIC: altered MS today off baseline Constitutional: other (encephalopathic, non-communicative) Psych: no complaints Head: normocephalic ENMT: mucosa pink and moist Neck: supple, jvd (9 cm water) Respiratory: diminished breath sounds (at bases/B) Cardiovascular: regular rate and rhythm Gastrointestinal: soft, non-tender Musculoskeletal: muscle weakness (generalized) Extremities: other (none) Neurological: other (L sidede arm posturing?) Labs Result Diagram: 12/22/18 0454 12/22/18 0454 Results 24hrs Laboratory Tests Test 12/22/18 17:01 12/22/18 21:42 12/23/18 05:42 12/23/18 05:43 Bedside Glucose 77 85 139 Random Vancomycin 12.3 Level Test 12/23/18 08:10 12/23/18 11:52 Bedside Glucose 160 132 Medications Medications Current Medications Vancomycin HCl (Vanco Iv Per Pharmacy) VANCOMYCIN PER PHARMACY PER PROTOCOL XX ; Start 12/18/18 at 09:30 Hydralazine HCl (Apresoline) 20 mg Q4 PRN IV HIGH BLOOD Last administered on 12/21/18 03:13; Admin Dose 20 MG; Start 12/18/18 at 09:30 Acetaminophen (Tylenol Tab) 650 mg Q4H PRN PO MILD PAIN(1-3)OR ELEVATED TEMP; Start 12/18/18 at 09:30 Acetaminophen/ Hydrocodone Bitart ([place] (5/325)) 1 tab Q4H PRN PO MODERATE PAIN LEVEL 4-6 Last administered on 12/22/18at 00:00; Admin Dose 1 TAB; Start 12/18/18 at 09:30 Insulin Aspart (Novolog Insulin Pen) NOVOLOG *MILD* ALGORITHM WITH MEALS BEDTIME SC Last administered on 12/23/18at 08:11; Admin Dose 1 UNIT; Start 12/18/18 at 12:00 Aspirin (Halfprin) 81 mg DAILY PO Last administered on 12/22/18 08:41; Admin Dose 81 MG; Start 12/18/18 at 09:30 Atorvastatin Calcium (Lipitor) 80 mg QHS PO Last administered on 12/22/18at 21:39; Admin Dose 80 MG; Start 12/18/18 at 21:00 Baclofen (Lioresal) 10 mg TID PO Last administered on 12/23/18at 11:53; Admin Dose 10 MG; Start 12/18/18 at 13:00 Clopidogrel Bisulfate (plaVIX) 75 mg DAILY PO Last administered on 12/22/18 08:40; Admin Dose 75 MG; Start 12/18/18 at 09:30 Multivit/Ca Carb/ B Cmplx/FA/Prenat (Amarilis-Christina) 1 tab DAILY PO Last administered on 12/22/18 08:41; Admin Dose 1 TAB; Start 12/18/18 at 09:30 Mirtazapine (Remeron) 15 mg HS PO Last administered on 12/22/18 21:39; Admin Dose 15 MG; Start 12/18/18 at 21:00 Paroxetine HCl (Paxil) 10 mg DAILY PO Last administered on 12/22/18 08:41; Admin Dose 10 MG; Start 12/18/18 at 09:30 Zinc Sulfate (Zinc Sulfate) 220 mg DAILY PO Last administered on 12/22/18 08:40; Admin Dose 220 MG; Start 12/18/18 at 09:30 Sevelamer Carbonate (Renvela) 800 mg WITH MEALS PO Last administered on 12/22/18 17:02; Admin Dose 800 MG; Start 12/18/18 at 11:30 Diagnostic Test (Pha) (Accu-Chek) 1 ea 02 XX ; Start 12/19/18 at 02:00 Miscellaneous Information 1 ea NOTE XX ; Start 12/18/18 at 13:00 Glucose (Glutose) 15 gm Q15M PRN PO DECREASED GLUCOSE Last administered on 12/19/18 22:39; Admin Dose 15 GM; Start 12/18/18 at 13:00 Glucose (Glutose) 22.5 gm Q15M PRN PO DECREASED GLUCOSE Last administered on 12/19/18 23:35; Admin Dose 22.5 GM; Start 12/18/18 at 13:00 Dextrose (D50w Syringe) 25 ml Q15M PRN IV DECREASED GLUCOSE; Start 12/18/18 at 1 3:00 Dextrose (D50w Syringe) 50 ml Q15M PRN IV DECREASED GLUCOSE Last administered on 12/22/18 07:09; Admin Dose 50 ML; Start 12/18/18 at 13:00 Glucagon (Glucagen) 1 mg Q15M PRN IM DECREASED GLUCOSE; Start 12/18/18 at 13:00 Glucose (Glutose) 15 gm Q15M PRN BUCCAL DECREASED GLUCOSE; Start 12/18/18 at 13:00 Epoetin Josias-epbx (Retacrit (Esrd)) 8,000 unit MoWeFr@1700 SC Last administered on 12/20/18 17:31; Admin Dose 8,000 UNIT; Start 12/18/18 at 17:00 Levofloxacin (Levaquin) 500 mg Q48H PO Last administered on 12/22/18 08:40; Admin Dose 500 MG; Start 12/20/18 at 08:00 Povidone Iodine (Povidone-Iodine) 1 applic BID TOP Last administered on 12/23/18 08:09; Admin Dose 1 APPLIC; Start 12/18/18 at 21:00 Sodium Hypochlorite (Dakins Diluted ()) 1 applic BID TP Last administered on 12/23/18 08:09; Admin Dose 1 APPLIC; Start 12/18/18 at 21:00 Multi-Ingredient Ointment (Eucerin Cream) 1 applic DAILY TOP Last administered on 12/23/18 08:09; Admin Dose 1 APPLIC; Start 12/19/18 at 10:28 Dextrose/Sodium Chloride 1,000 ml @ 50 mls/hr Q20H IV Last administered on 12/23/18 07:00; Admin Dose 50 MLS/HR; Start 12/21/18 at 13:30 Ondansetron HCl (Zofran Inj) 4 mg Q6H PRN IV NAUSEA AND/OR VOMITING Last administered on 12/23/18 05:05; Admin Dose 4 MG; Start 12/21/18 at 13:30 Amlodipine Besylate (Norvasc) 5 mg DAILY PO ; Start 12/23/18 at 09:00 Insulin Glargine (Lantus) 3 units DAILY@2000 SC Last administered on 12/22/18 21:59; Admin Dose 3 UNITS; Start 12/22/18 at 20:00 Lisinopril (Zestril) 40 mg DAILY PO ; Start 12/23/18 at 09:00 Metoprolol Tartrate (Lopressor) 50 mg BID PO Last administered on 12/22/18 21:40; Admin Dose 50 MG; Start 12/22/18 at 21:00 Linagliptin (Tradjenta) 5 mg DAILY PO Last administered on 12/22/18 15:26; Admin Dose 5 MG; Start 12/22/18 at 14:30 Bromocriptine Mesylate (Parlodel) 2.5 mg QHS PO Last administered on 12/22/18at 21:48; Admin Dose 2.5 MG; Start 12/22/18 at 21:00 Diagnostic Test (Pha) (Accu-Chek) 1 ea 2 HOURS AFTER MEALS XX ; Start 12/22/18 at 20:00 Diagnostic Test (Pha) (Accu-Chek) 1 ea AC MEALS XX Last administered on 12/22/18at 17:02; Admin Dose 1 EA; Start 12/22/18 at 17:30 Vancomycin HCl 250 ml @ 125 mls/hr Q96H IVPB Last administered on 12/23/18at 11:53; Admin Dose 125 MLS/HR; Start 12/23/18 at 12:00 JUWAN TAYLOR Dec 23, 2018 12:10
--- NOTE | 2018-12-23 13:36 | CONS ---
Assessment/Plan Assessment/Plan Problems: (1) Type 2 diabetes mellitus with diabetic chronic kidney disease Status: Chronic Comment: In a situation like this where pt. has had low glucose on higher doses of lantus, it is reasonable to lower lantus dose and give linagliptin daily to cover mealtimes. This is often effective due to prolongation of insulin action in the face of ESRD. Pt. had dose reduced of lantus last night and BG has been more in goal range today w/o trend towards hypoglycemia he was having yesterday. Linagliptin not given b/c pt. NPO but when diet and linagliptin resume it will be interesting to see if this controls glucose or if the patient will need a small amount of mealtime control. In that case, nateglinide would likely do nicely. Will follow and monitor glycemic control on this patient who apparently also has a poor prognosis. Qualifiers: Diabetes mellitus retirement insulin use: with terminal system operator use Chronic kidney disease stage: on chronic dialysis Qualified Codes: E11.22 - Type 2 diabetes mellitus with diabetic chronic kidney disease; N18.6 - End stage renal disease; Z79.4 - terminal makeup operator (current) use of insulin; Z99.2 - Dependence on renal dialysis Consultation Date/Type/Reason Admit Date/Time Dec 18, 2018 at 04:02 Initial Consult Date 12/22/18 Type of Consult Endocrinology Reason for Consultation T2DM management Requesting Provider: ADRIANA JUSTICE Date/Time of Note DATE: 12/23/18 TIME: 13:31 24 HR Interval Summary Subjective hx not possible: pt non-verbal (looks at examiner but does not speak) Exam/Review of Systems Exam Vitals VS - Last 72 Hours, by Label Date Temp Pulse Resp B/P (MAP) Pulse Ox O2 O2 Flow FiO2 Time Delivery Rate 12/23/18 93 13:05 12/23/18 88 12:50 12/23/18 89 12:35 12/23/18 89 12:20 12/23/18 98.4 90 18 165/59 97 12:11 (94) 12/23/18 90 12:05 12/23/18 89 12:00 12/23/18 91 11:50 12/23/18 88 11:35 12/23/18 81 16 155/75 98 Room Air 11:24 (101) 12/23/18 88 11:20 12/23/18 88 11:05 12/23/18 88 10:50 12/23/18 90 10:35 12/23/18 91 10:20 12/23/18 73 08:06 12/23/18 98.2 75 17 114/57 98 07:24 (76) 12/23/18 81 04:00 12/23/18 98.6 81 18 143/69 99 04:00 (93) 12/23/18 83 00:00 12/23/18 98.5 84 19 125/60 97 00:00 (81) 12/22/18 98.5 88 19 131/62 100 20:00 (85) 12/22/18 88 20:00 12/22/18 84 16:00 12/22/18 98.2 90 18 134/94 97 15:36 (107) 12/22/18 78 12:00 12/22/18 97.9 74 18 128/72 96 11:51 (90) 12/22/18 87 08:00 12/22/18 98.3 86 17 119/62 97 07:22 (81) 12/22/18 85 04:00 12/22/18 98.5 85 18 104/57 96 00:00 (73) 12/22/18 86 00:00 12/21/18 98.3 90 18 140/75 100 20:00 (96) 12/21/18 95 20:00 12/21/18 90 19:30 12/21/18 90 19:15 12/21/18 90 19:00 12/21/18 91 18:45 12/21/18 92 18:30 12/21/18 89 18:15 12/21/18 89 18:00 12/21/18 91 17:45 12/21/18 90 17:30 12/21/18 93 17 135/72 98 Room Air 17:23 (93) 12/21/18 92 17:15 12/21/18 92 17:00 12/21/18 89 16:45 12/21/18 92 16:30 12/21/18 98.0 93 18 135/72 98 16:25 (93) 12/21/18 90 16 134/62 98 Room Air 14:56 (86) 12/21/18 97.7 81 18 115/59 96 14:54 (77) 12/21/18 84 114/53 11:56 (73) 12/21/18 90 158/90 11:26 (112) 12/21/18 98.1 92 18 168/118 100 08:24 (135) 12/21/18 98.2 85 18 172/81 99 02:34 (111) 12/20/18 98.4 98 20 138/63 98 20:26 (88) 12/20/18 99.0 100 16 157/72 99 Room Air 14:29 (100) Vital Signs Date Temp Pulse Resp B/P (MAP) Pulse Ox O2 O2 Flow FiO2 Time Delivery Rate 12/23/18 93 13:05 12/23/18 98.4 18 165/59 97 12:11 (94) 12/23/18 Room Air 11:24 Intake and Output 12/22/18 12/22/18 12/23/18 1515:00 23:00 07:00 IntakeIntake Total 840 ml OutputOutput Total 2 ml BalanceBalance 840 ml -2 ml Constitutional: alert, non-verbal, frail; No oriented Respiratory: clear to auscultation, normal air movement Cardiovascular: regular rate and rhythm; No edema, No murmurs/extra sounds, No rub Gastrointestinal: soft, nl liver, spleen, non-tender, bowel sounds; No mass, No rebound or guarding Musculoskeletal: No nl extremities to inspection (BLE w/ flaking skin, wasting of muscles) Extremities: No cyanosis, No clubbing, No edema Neurological: lethargic Additional Comments Bedside Glucose - 72 Hours Test 12/20/18 17:26 12/20/18 20:52 12/21/18 02:20 12/21/18 05:32 Bedside 156 204 114 127 Glucose mg/dL (70-220) mg/dL (70-220) mg/dL (70-220) mg/dL (70-220) Test 12/21/18 08:05 12/21/18 12:00 12/21/18 14:28 12/21/18 17:31 Bedside 170 207 221 158 Glucose mg/dL (70-220) mg/dL (70-220) mg/dL (70-220) mg/dL (70-220) H Test 12/21/18 21:17 12/22/18 07:11 12/22/18 07:38 12/22/18 11:33 Bedside 82 51 155 94 Glucose mg/dL (70-220) mg/dL (70-220) mg/dL (70-220) mg/dL (70-220) L Test 12/22/18 17:01 12/22/18 21:42 12/23/18 05:42 12/23/18 08:10 Bedside 77 85 139 160 Glucose mg/dL (70-220) mg/dL (70-220) mg/dL (70-220) mg/dL (70-220) Test 12/23/18 11:52 Bedside 132 Glucose mg/dL (70-220) Results Result Diagram: 12/22/18 0454 12/22/18 0454 Results 24hrs Laboratory Tests Test 12/22/18 17:01 12/22/18 21:42 12/23/18 05:42 12/23/18 05:43 Bedside Glucose 77 85 139 Random Vancomycin 12.3 Level Test 12/23/18 08:10 12/23/18 11:52 Bedside Glucose 160 132 Medications Medication Current Medications Vancomycin HCl (Vanco Iv Per Pharmacy) VANCOMYCIN PER PHARMACY PER PROTOCOL XX ; Start 12/18/18 at 09:30 Hydralazine HCl (Apresoline) 20 mg Q4 PRN IV HIGH BLOOD Last administered on 12/21/18 03:13; Admin Dose 20 MG; Start 12/18/18 at 09:30 Acetaminophen (Tylenol Tab) 650 mg Q4H PRN PO MILD PAIN(1-3)OR ELEVATED TEMP; Start 12/18/18 at 09:30 Acetaminophen/ Hydrocodone Bitart ([place] (5/325)) 1 tab Q4H PRN PO MODERATE PAIN LEVEL 4-6 Last administered on 12/22/18at 00:00; Admin Dose 1 TAB; Start 12/18/18 at 09:30 Insulin Aspart (Novolog Insulin Pen) NOVOLOG *MILD* ALGORITHM WITH MEALS BEDTIME SC Last administered on 12/23/18 08:11; Admin Dose 1 UNIT; Start 12/18/18 at 12:00 Aspirin (Halfprin) 81 mg DAILY PO Last administered on 12/22/18 08:41; Admin Dose 81 MG; Start 12/18/18 at 09:30 Atorvastatin Calcium (Lipitor) 80 mg QHS PO Last administered on 12/22/18 21:39; Admin Dose 80 MG; Start 12/18/18 at 21:00 Baclofen (Lioresal) 10 mg TID PO Last administered on 12/23/18 11:53; Admin Dose 10 MG; Start 12/18/18 at 13:00 Clopidogrel Bisulfate (plaVIX) 75 mg DAILY PO Last administered on 12/22/18 08:40; Admin Dose 75 MG; Start 12/18/18 at 09:30 Multivit/Ca Carb/ B Cmplx/FA/Prenat (Amarilis-Christina) 1 tab DAILY PO Last administered on 12/22/18 08:41; Admin Dose 1 TAB; Start 12/18/18 at 09:30 Mirtazapine (Remeron) 15 mg HS PO Last administered on 12/22/18 21:39; Admin Dose 15 MG; Start 12/18/18 at 21:00 Paroxetine HCl (Paxil) 10 mg DAILY PO Last administered on 12/22/18 08:41; Admin Dose 10 MG; Start 12/18/18 at 09:30 Zinc Sulfate (Zinc Sulfate) 220 mg DAILY PO Last administered on 12/22/18 08:40; Admin Dose 220 MG; Start 12/18/18 at 09:30 Sevelamer Carbonate (Renvela) 800 mg WITH MEALS PO Last administered on 12/22/18 17:02; Admin Dose 800 MG; Start 12/18/18 at 11:30 Diagnostic Test (Pha) (Accu-Chek) 1 ea 02 XX ; Start 12/19/18 at 02:00 Miscellaneous Information 1 ea NOTE XX ; Start 12/18/18 at 13:00 Glucose (Glutose) 15 gm Q15M PRN PO DECREASED GLUCOSE Last administered on 12/19/18 22:39; Admin Dose 15 GM; Start 12/18/18 at 13:00 Glucose (Glutose) 22.5 gm Q15M PRN PO DECREASED GLUCOSE Last administered on 12/19/18 23:35; Admin Dose 22.5 GM; Start 12/18/18 at 13:00 Dextrose (D50w Syringe) 25 ml Q15M PRN IV DECREASED GLUCOSE; Start 12/18/18 at 13:00 Dextrose (D50w Syringe) 50 ml Q15M PRN IV DECREASED GLUCOSE Last administered on 6/9/19at 07:09; Admin Dose 50 ML; Start 12/18/18 at 13:00 Glucagon (Glucagen) 1 mg Q15M PRN IM DECREASED GLUCOSE; Start 12/18/18 at 13:00 Glucose (Glutose) 15 gm Q15M PRN BUCCAL DECREASED GLUCOSE; Start 12/18/18 at 13:00 Epoetin Josias-epbx (Retacrit (Esrd)) 8,000 unit MoWeFr@1700 SC Last administered on 12/20/18 17:31; Admin Dose 8,000 UNIT; Start 12/18/18 at 17:00 Levofloxacin (Levaquin) 500 mg Q48H PO Last administered on 12/22/18 08:40; Admin Dose 500 MG; Start 12/20/18 at 08:00 Povidone Iodine (Povidone-Iodine) 1 applic BID TOP Last administered on 12/23/18 08:09; Admin Dose 1 APPLIC; Start 12/18/18 at 21:00 Sodium Hypochlorite (Dakins Diluted ()) 1 applic BID TP Last administered on 12/23/18 08:09; Admin Dose 1 APPLIC; Start 12/18/18 at 21:00 Multi-Ingredient Ointment (Eucerin Cream) 1 applic DAILY TOP Last administered on 12/23/18 08:09; Admin Dose 1 APPLIC; Start 12/19/18 at 10:28 Dextrose/Sodium Chloride 1,000 ml @ 50 mls/hr Q20H IV Last administered on 12/23/18 07:00; Admin Dose 50 MLS/HR; Start 12/21/18 at 13:30 Ondansetron HCl (Zofran Inj) 4 mg Q6H PRN IV NAUSEA AND/OR VOMITING Last administered on 12/23/18 05:05; Admin Dose 4 MG; Start 12/21/18 at 13:30 Amlodipine Besylate (Norvasc) 5 mg DAILY PO ; Start 12/23/18 at 09:00 Insulin Glargine (Lantus) 3 units DAILY@2000 SC Last administered on 12/22/18 21:59; Admin Dose 3 UNITS; Start 12/22/18 at 20:00 Lisinopril (Zestril) 40 mg DAILY PO ; Start 12/23/18 at 09:00 Metoprolol Tartrate (Lopressor) 50 mg BID PO Last administered on 12/22/18 21:40; Admin Dose 50 MG; Start 12/22/18 at 21:00 Linagliptin (Tradjenta) 5 mg DAILY PO Last administered on 12/22/18 15:26; Admin Dose 5 MG; Start 12/22/18 at 14:30 Bromocriptine Mesylate (Parlodel) 2.5 mg QHS PO Last administered on 12/22/18 21:48; Admin Dose 2.5 MG; Start 12/22/18 at 21:00 Diagnostic Test (Pha) (Accu-Chek) 1 ea 2 HOURS AFTER MEALS XX ; Start 12/22/18 at 20:00 Diagnostic Test (Pha) (Accu-Chek) 1 ea AC MEALS XX Last administered on 12/22/18 17:02; Admin Dose 1 EA; Start 12/22/18 at 17:30 Vancomycin HCl 250 ml @ 125 mls/hr Q96H IVPB Last administered on 12/23/18at 11:53; Admin Dose 125 MLS/HR; Start 12/23/18 at 12:00 SUMAN ART MD Dec 23, 2018 13:36
--- NOTE | 2018-12-23 14:33 | PN ---
Date/Time of Note Date/Time of Note DATE: 12/23/18 TIME: 14:18 Assessment/Plan VTE Prophylaxis Risk score (from Ns)>0 risk: 8 SCD applied (from Ns): Yes Pharmacological prophylaxis: other Lines/Catheters IV Catheter Type (from Nrs): Peripheral IV Urinary Cath still in place: No Assessment/Plan Hospital Course Patient is undergoing hemodialysis, patient is awake maintains eye contact however nonverbal which is changed to patient being able to answer questions appropriately. Will obtain stat brain.brain CT. Dr. Alfaro is asked to see patient in neurology consultation. Assessment/Plan -Right foot ulcer with cellulitis. Continue broad-spectrum antibiotics. Dr. Giles is following in infection disease consultation. Dr. Ford following and podiatry consultation -Hemodialysis dependent end-stage renal disease. Dr. Agustin is following in nephrology consultation. -Diabetes mellitus type 2. Continue Lantus and NovoLog. -Hyperlipidemia, continue statin. -History of stroke, continue Plavix. Further recommendations based on clinical course. Plan of care discussed with Dr. Perez. Result Diagram: 12/22/18 0454 12/22/18 0454 Results 24hrs Laboratory Tests Test 12/22/18 17:01 12/22/18 21:42 12/23/18 05:42 12/23/18 05:43 Bedside Glucose 77 85 139 Random Vancomycin 12.3 Level Test 12/23/18 08:10 12/23/18 11:52 Bedside Glucose 160 132 Exam/Review of Systems Exam Vitals Vital Signs Date Temp Pulse Resp B/P (MAP) Pulse Ox O2 O2 Flow FiO2 Time Delivery Rate 12/23/18 90 13:20 12/23/18 98.4 18 165/59 97 12:11 (94) 12/23/18 Room Air 11:24 Intake and Output 12/22/18 12/22/18 12/23/18 1515:00 23:00 07:00 IntakeIntake Total 840 ml OutputOutput Total 2 ml BalanceBalance 840 ml -2 ml Exam Constitutional: Awake, nonverbal Respiratory: clear to auscultation Cardiovascular: nl pulses Gastrointestinal: soft, non-tender Musculoskeletal: nl extremities to inspection Extremities: normal pulses, other (Left foot diabetic ulcer, left upper extremity AV fistula) Results Results 24hrs Laboratory Tests Test 12/22/18 17:01 12/22/18 21:42 12/23/18 05:42 12/23/18 05:43 Bedside Glucose 77 85 139 Random Vancomycin 12.3 Level Test 12/23/18 08:10 12/23/18 11:52 Bedside Glucose 160 132 Medications Medication Current Medications Vancomycin HCl (Vanco Iv Per Pharmacy) VANCOMYCIN PER PHARMACY PER PROTOCOL XX ; Start 12/18/18 at 09:30 Hydralazine HCl (Apresoline) 20 mg Q4 PRN IV HIGH BLOOD Last administered on 12/21/18 03:13; Admin Dose 20 MG; Start 12/18/18 at 09:30 Acetaminophen (Tylenol Tab) 650 mg Q4H PRN PO MILD PAIN(1-3)OR ELEVATED TEMP; Start 12/18/18 at 09:30 Acetaminophen/ Hydrocodone Bitart ([place] (5/325)) 1 tab Q4H PRN PO MODERATE PAIN LEVEL 4-6 Last administered on 12/22/18 00:00; Admin Dose 1 TAB; Start 12/18/18 at 09:30 Insulin Aspart (Novolog Insulin Pen) NOVOLOG *MILD* ALGORITHM WITH MEALS BEDTIME SC Last administered on 12/23/18 08:11; Admin Dose 1 UNIT; Start 12/18/18 at 12:00 Aspirin (Halfprin) 81 mg DAILY PO Last administered on 12/22/18 08:41; Admin Dose 81 MG; Start 12/18/18 at 09:30 Atorvastatin Calcium (Lipitor) 80 mg QHS PO Last administered on 12/22/18 21:39; Admin Dose 80 MG; Start 12/18/18 at 21:00 Baclofen (Lioresal) 10 mg TID PO Last administered on 12/23/18 11:53; Admin Dose 10 MG; Start 12/18/18 at 13:00 Clopidogrel Bisulfate (plaVIX) 75 mg DAILY PO Last administered on 12/22/18 08:40; Admin Dose 75 MG; Start 12/18/18 at 09:30 Multivit/Ca Carb/ B Cmplx/FA/Prenat (Amarilis-Christina) 1 tab DAILY PO Last administered on 12/22/18 08:41; Admin Dose 1 TAB; Start 12/18/18 at 09:30 Mirtazapine (Remeron) 15 mg HS PO Last administered on 12/22/18 21:39; Admin Dose 15 MG; Start 12/18/18 at 21:00 Paroxetine HCl (Paxil) 10 mg DAILY PO Last administered on 12/22/18 08:41; Admin Dose 10 MG; Start 12/18/18 at 09:30 Zinc Sulfate (Zinc Sulfate) 220 mg DAILY PO Last administered on 12/22/18 08:40; Admin Dose 220 MG; Start 12/18/18 at 09:30 Sevelamer Carbonate (Renvela) 800 mg WITH MEALS PO Last administered on 12/22/18 17:02; Admin Dose 800 MG; Start 12/18/18 at 11:30 Diagnostic Test (Pha) (Accu-Chek) 1 ea 02 XX ; Start 12/19/18 at 02:00 Miscellaneous Information 1 ea NOTE XX ; Start 12/18/18 at 13:00 Glucose (Glutose) 15 gm Q15M PRN PO DECREASED GLUCOSE Last administered on 12/19/18 22:39; Admin Dose 15 GM; Start 12/18/18 at 13:00 Glucose (Glutose) 22.5 gm Q15M PRN PO DECREASED GLUCOSE Last administered on 12/19/18 23:35; Admin Dose 22.5 GM; Start 12/18/18 at 13:00 Dextrose (D50w Syringe) 25 ml Q15M PRN IV DECREASED GLUCOSE; Start 12/18/18 at 13:00 Dextrose (D50w Syringe) 50 ml Q15M PRN IV DECREASED GLUCOSE Last administered on 12/22/18 07:09; Admin Dose 50 ML; Start 12/18/18 at 13:00 Glucagon (Glucagen) 1 mg Q15M PRN IM DECREASED GLUCOSE; Start 12/18/18 at 13:00 Glucose (Glutose) 15 gm Q15M PRN BUCCAL DECREASED GLUCOSE; Start 12/18/18 at 13:00 Epoetin Josias-epbx (Retacrit (Esrd)) 8,000 unit MoWeFr@1700 SC Last administered on 12/20/18 17:31; Admin Dose 8,000 UNIT; Start 12/18/18 at 17:00 Levofloxacin (Levaquin) 500 mg Q48H PO Last administered on 12/22/18 08:40; Admin Dose 500 MG; Start 12/20/18 at 08:00 Povidone Iodine (Povidone-Iodine) 1 applic BID TOP Last administered on 12/23/18 08:09; Admin Dose 1 APPLIC; Start 12/18/18 at 21:00 Sodium Hypochlorite (Dakins Diluted (1/40)) 1 applic BID TP Last administered on 12/23/18 08:09; Admin Dose 1 APPLIC; Start 12/18/18 at 21:00 Multi-Ingredient Ointment (Eucerin Cream) 1 applic DAILY TOP Last administered on 12/23/18 08:09; Admin Dose 1 APPLIC; Start 12/19/18 at 10:28 Dextrose/Sodium Chloride 1,000 ml @ 50 mls/hr Q20H IV Last administered on 12/23/18 07:00; Admin Dose 50 MLS/HR; Start 12/21/18 at 13:30 Ondansetron HCl (Zofran Inj) 4 mg Q6H PRN IV NAUSEA AND/OR VOMITING Last admin istered on 12/23/18 05:05; Admin Dose 4 MG; Start 12/21/18 at 13:30 Amlodipine Besylate (Norvasc) 5 mg DAILY PO ; Start 12/23/18 at 09:00 Insulin Glargine (Lantus) 3 units DAILY@2000 SC Last administered on 12/22/18 21:59; Admin Dose 3 UNITS; Start 12/22/18 at 20:00 Lisinopril (Zestril) 40 mg DAILY PO ; Start 12/23/18 at 09:00 Metoprolol Tartrate (Lopressor) 50 mg BID PO Last administered on 12/22/18 21:40; Admin Dose 50 MG; Start 12/22/18 at 21:00 Linagliptin (Tradjenta) 5 mg DAILY PO Last administered on 12/22/18 15:26; Admin Dose 5 MG; Start 12/22/18 at 14:30 Bromocriptine Mesylate (Parlodel) 2.5 mg QHS PO Last administered on 12/22/18 21:48; Admin Dose 2.5 MG; Start 12/22/18 at 21:00 Diagnostic Test (Pha) (Accu-Chek) 1 ea 2 HOURS AFTER MEALS XX ; Start 12/22/18 at 20:00 Diagnostic Test (Pha) (Accu-Chek) 1 ea AC MEALS XX Last administered on 12/22/18at 17:02; Admin Dose 1 EA; Start 12/22/18 at 17:30 Vancomycin HCl 250 ml @ 125 mls/hr Q96H IVPB Last administered on 12/23/18at 11:53; Admin Dose 125 MLS/HR; Start 12/23/18 at 12:00 NEL LARSEN Dec 23, 2018 14:30
--- NOTE | 2018-12-23 14:40 | CONS ---
Assessment/Plan Assessment/Plan Hospital Course (Demo Recall) 1200 No acute events, in HD, looks comfortable no fevers overnight Indwelling's: Left upper extremity AV fistula Allergy: Clindamycin Antimicrobials: Levofloxacin, Vanco Physical examination: Well-developed well-nourished elderly -[place] male in who is in no distress. Head atraumatic normocephalic neck is supple chest rise symmetrical breath sounds diminished bases. Heart: S1-S2. Abdomen soft bowel sounds present. Extremities with bilateral lower extremities dressing intact Assessment: 1. Bilateral lower extremities wounds with cellulitis and osteomyelitis 2. End-stage renal disease 3. Diabetes 4. Diabetic neuropathy Plan: Stable, continue antibiotics, management per podiatry Consultation Date/Type/Reason Admit Date/Time Dec 18, 2018 at 04:02 Initial Consult Date 12/18/18 Type of Consult id Requesting Provider: ADRIANA JUSTICE Date/Time of Note DATE: 12/23/18 TIME: 14:39 Exam/Review of Systems Exam Vitals Vital Signs Date Temp Pulse Resp B/P (MAP) Pulse Ox O2 O2 Flow FiO2 Time Delivery Rate 12/23/18 90 13:20 12/23/18 98.4 18 165/59 97 12:11 (94) 12/23/18 Room Air 11:24 Intake and Output 12/22/18 12/22/18 12/23/18 1515:00 23:00 07:00 IntakeIntake Total 840 ml OutputOutput Total 2 ml BalanceBalance 840 ml -2 ml Results Result Diagram: 12/22/18 0454 12/22/18 0454 Results 24hrs Laboratory Tests Test 12/22/18 17:01 12/22/18 21:42 12/23/18 05:42 12/23/18 05:43 Bedside Glucose 77 85 139 Random Vancomycin 12.3 Level Test 12/23/18 08:10 12/23/18 11:52 Bedside Glucose 160 132 Medications Medication Current Medications Vancomycin HCl (Vanco Iv Per Pharmacy) VANCOMYCIN PER PHARMACY PER PROTOCOL XX ; Start 12/18/18 at 09:30 Hydralazine HCl (Apresoline) 20 mg Q4 PRN IV HIGH BLOOD Last administered on 12/21/18at 03:13; Admin Dose 20 MG; Start 12/18/18 at 09:30 Acetaminophen (Tylenol Tab) 650 mg Q4H PRN PO MILD PAIN(1-3)OR ELEVATED TEMP; Start 12/18/18 at 09:30 Acetaminophen/ Hydrocodone Bitart ([place] (5/325)) 1 tab Q4H PRN PO MODERATE PAIN LEVEL 4-6 Last administered on 12/22/18 00:00; Admin Dose 1 TAB; Start 12/18/18 at 09:30 Insulin Aspart (Novolog Insulin Pen) NOVOLOG *MILD* ALGORITHM WITH MEALS BEDTIME SC Last administered on 12/23/18 08:11; Admin Dose 1 UNIT; Start 12/18/18 at 12:00 Aspirin (Halfprin) 81 mg DAILY PO Last administered on 12/22/18 08:41; Admin Dose 81 MG; Start 12/18/18 at 09:30 Atorvastatin Calcium (Lipitor) 80 mg QHS PO Last administered on 12/22/18 21:39; Admin Dose 80 MG; Start 12/18/18 at 21:00 Baclofen (Lioresal) 10 mg TID PO Last administered on 12/23/18 11:53; Admin Dose 10 MG; Start 12/18/18 at 13:00 Clopidogrel Bisulfate (plaVIX) 75 mg DAILY PO Last administered on 12/22/18 08:40; Admin Dose 75 MG; Start 12/18/18 at 09:30 Multivit/Ca Carb/ B Cmplx/FA/Prenat (Amarilis-Christina) 1 tab DAILY PO Last administered on 12/22/18 08:41; Admin Dose 1 TAB; Start 12/18/18 at 09:30 Mirtazapine (Remeron) 15 mg HS PO Last administered on 12/22/18 21:39; Admin Dose 15 MG; Start 12/18/18 at 21:00 Paroxetine HCl (Paxil) 10 mg DAILY PO Last administered on 12/22/18 08:41; Admin Dose 10 MG; Start 12/18/18 at 09:30 Zinc Sulfate (Zinc Sulfate) 220 mg DAILY PO Last administered on 12/22/18 08:40; Admin Dose 220 MG; Start 12/18/18 at 09:30 Sevelamer Carbonate (Renvela) 800 mg WITH MEALS PO Last administered on 12/22/18 17:02; Admin Dose 800 MG; Start 12/18/18 at 11:30 Diagnostic Test (Pha) (Accu-Chek) 1 ea 02 XX ; Start 12/19/18 at 02:00 Miscellaneous Information 1 ea NOTE XX ; Start 12/18/18 at 13:00 Glucose (Glutose) 15 gm Q15M PRN PO DECREASED GLUCOSE Last administered on 12/19/18at 22:39; Admin Dose 15 GM; Start 12/18/18 at 13:00 Glucose (Glutose) 22.5 gm Q15M PRN PO DECREASED GLUCOSE Last administered on 12/19/18at 23:35; Admin Dose 22.5 GM; Start 12/18/18 at 13:00 Dextrose (D50w Syringe) 25 ml Q15M PRN IV DECREASED GLUCOSE; Start 12/18/18 at 13:00 Dextrose (D50w Syringe) 50 ml Q15M PRN IV DECREASED GLUCOSE Last administered on 12/22/18at 07:09; Admin Dose 50 ML; Start 12/18/18 at 13:00 Glucagon (Glucagen) 1 mg Q15M PRN IM DECREASED GLUCOSE; Start 12/18/18 at 13:00 Glucose (Glutose) 15 gm Q15M PRN BUCCAL DECREASED GLUCOSE; Start 12/18/18 at 13:00 Epoetin Josias-epbx (Retacrit (Esrd)) 8,000 unit MoWeFr@1700 SC Last administered on 12/20/18at 17:31; Admin Dose 8,000 UNIT; Start 12/18/18 at 17:00 Levofloxacin (Levaquin) 500 mg Q48H PO Last administered on 12/22/18at 08:40; Admin Dose 500 MG; Start 12/20/18 at 08:00 Povidone Iodine (Povidone-Iodine) 1 applic BID TOP Last administered on 12/23/18 08:09; Admin Dose 1 APPLIC; Start 12/18/18 at 21:00 Sodium Hypochlorite (Dakins Diluted (40)) 1 applic BID TP Last administered on 12/23/18 08:09; Admin Dose 1 APPLIC; Start 12/18/18 at 21:00 Multi-Ingredient Ointment (Eucerin Cream) 1 applic DAILY TOP Last administered on 12/23/18 08:09; Admin Dose 1 APPLIC; Start 12/19/18 at 10:28 Dextrose/Sodium Chloride 1,000 ml @ 50 mls/hr Q20H IV Last administered on 12/23/18 07:00; Admin Dose 50 MLS/HR; Start 12/21/18 at 13:30 Ondansetron HCl (Zofran Inj) 4 mg Q6H PRN IV NAUSEA AND/OR VOMITING Last administered on 12/23/18 05:05; Admin Dose 4 MG; Start 12/21/18 at 13:30 Amlodipine Besylate (Norvasc) 5 mg DAILY PO ; Start 12/23/18 at 09:00 Insulin Glargine (Lantus) 3 units DAILY@2000 SC Last administered on 12/22/18 21:59; Admin Dose 3 UNITS; Start 12/22/18 at 20:00 Lisinopril (Zestril) 40 mg DAILY PO ; Start 12/23/18 at 09:00 Metoprolol Tartrate (Lopressor) 50 mg BID PO Last administered on 12/22/18 21:40; Admin Dose 50 MG; Start 12/22/18 at 21:00 Linagliptin (Tradjenta) 5 mg DAILY PO Last administered on 12/22/18 15:26; Admin Dose 5 MG; Start 12/22/18 at 14:30 Bromocriptine Mesylate (Parlodel) 2.5 mg QHS PO Last administered on 12/22/18 21:48; Admin Dose 2.5 MG; Start 12/22/18 at 21:00 Diagnostic Test (Pha) (Accu-Chek) 1 ea 2 HOURS AFTER MEALS XX ; Start 12/22/18 at 20:00 Diagnostic Test (Pha) (Accu-Chek) 1 ea AC MEALS XX Last administered on 12/22/18 17:02; Admin Dose 1 EA; Start 12/22/18 at 17:30 Vancomycin HCl 250 ml @ 125 mls/hr Q96H IVPB Last administered on 12/23/18 11:53; Admin Dose 125 MLS/HR; Start 12/23/18 at 12:00 SARABJIT DILLARD NP Dec 23, 2018 14:40
[2018-12-23] MEDS: EPOETIN ALFA-EPBX (ESRD) 4,000 UNIT/ML VIAL SC SCH (16:05)
--- NOTE | 2018-12-23 17:37 | CONS ---
Assessment/Plan Assessment/Plan Hospital Course (Demo Recall) Assessment- ulcer right 2nd toe, OM right 2nd toe with PIPJ bone exposed, Cellulitis right foot Plan: -Planned to have right 2nd toe amputation but will be rescheduled. Spoke with anesthesiologist who felt uncomfortable having surgery performed until after the CT scan of head results are in. Pt was getting CT scan of brain performed since he has altered state of consciousness. Once pt is cleared for surgery will reschedule surgery. - Nurse- to continue with dressing changed daily- clean with betadine soln right 2nd toe and cover loosely with gauze/cling -Pt can continue eating stop NPO Consultation Date/Type/Reason Admit Date/Time Dec 18, 2018 at 04:02 Initial Consult Date 12/22/18 Type of Consult Podiatry consult Reason for Consultation Pt was scheduled to have amputation of right 2nd toe today but it will need to be rescheduled since Pt has CT scan of brain for possible stroke Requesting Provider: ADRIANA JUSTICE Date/Time of Note DATE: 12/23/18 TIME: 17:29 Exam/Review of Systems Exam Vitals Vital Signs Date Temp Pulse Resp B/P (MAP) Pulse Ox O2 O2 Flow FiO2 Time Delivery Rate 12/23/18 89 16:00 12/23/18 98.2 17 169/84 94 15:55 (112) 12/23/18 Room Air 11:24 Intake and Output 12/22/18 12/22/18 12/23/18 1515:00 23:00 07:00 IntakeIntake Total 840 ml OutputOutput Total 2 ml BalanceBalance 840 ml -2 ml Results Result Diagram: 12/22/18 0454 12/22/18 0454 Results 24hrs Laboratory Tests Test 12/22/18 21:42 12/23/18 05:42 12/23/18 05:43 12/23/18 08:10 Bedside Glucose 85 139 160 Random Vancomycin 12.3 Level Test 12/23/18 11:52 12/23/18 16:03 Bedside Glucose 132 76 Medications Medication Current Medications Vancomycin HCl (Vanco Iv Per Pharmacy) VANCOMYCIN PER PHARMACY PER PROTOCOL XX ; Start 12/18/18 at 09:30 Hydralazine HCl (Apresoline) 20 mg Q4 PRN IV HIGH BLOOD Last administered on 12/21/18at 03:13; Admin Dose 20 MG; Start 12/18/18 at 09:30 Acetaminophen (Tylenol Tab) 650 mg Q4H PRN PO MILD PAIN(1-3)OR ELEVATED TEMP; Start 12/18/18 at 09:30 Acetaminophen/ Hydrocodone Bitart ([place] (5/325)) 1 tab Q4H PRN PO MODERATE PAIN LEVEL 4-6 Last administered on 12/22/18 00:00; Admin Dose 1 TAB; Start 12/18/18 at 09:30 Insulin Aspart (Novolog Insulin Pen) NOVOLOG *MILD* ALGORITHM WITH MEALS BEDTIME SC Last administered on 12/23/18 08:11; Admin Dose 1 UNIT; Start at 12:00 Aspirin (Halfprin) 81 mg DAILY PO Last administered on 12/22/18 08:41; Admin Dose 81 MG; Start 12/18/18 at 09:30 Atorvastatin Calcium (Lipitor) 80 mg QHS PO Last administered on 12/22/18 21:39; Admin Dose 80 MG; Start 12/18/18 at 21:00 Baclofen (Lioresal) 10 mg TID PO Last administered on 12/23/18 11:53; Admin Dose 10 MG; Start 12/18/18 at 13:00 Clopidogrel Bisulfate (plaVIX) 75 mg DAILY PO Last administered on 12/22/18 08:40; Admin Dose 75 MG; Start 12/18/18 at 09:30 Multivit/Ca Carb/ B Cmplx/FA/Prenat (Amarilis-Christina) 1 tab DAILY PO Last administered on 12/22/18 08:41; Admin Dose 1 TAB; Start 12/18/18 at 09:30 Mirtazapine (Remeron) 15 mg HS PO Last administered on 12/22/18 21:39; Admin Dose 15 MG; Start 12/18/18 at 21:00 Paroxetine HCl (Paxil) 10 mg DAILY PO Last administered on 12/22/18 08:41; Admin Dose 10 MG; Start 12/18/18 at 09:30 Zinc Sulfate (Zinc Sulfate) 220 mg DAILY PO Last administered on 12/22/18 08:40; Admin Dose 220 MG; Start 12/18/18 at 09:30 Sevelamer Carbonate (Renvela) 800 mg WITH MEALS PO Last administered on 6/9/19at 17:02; Admin Dose 800 MG; Start 12/18/18 at 11:30 Diagnostic Test (Pha) (Accu-Chek) 1 ea 02 XX ; Start 12/19/18 at 02:00 Miscellaneous Information 1 ea NOTE XX ; Start 12/18/18 at 13:00 Glucose (Glutose) 15 gm Q15M PRN PO DECREASED GLUCOSE Last administered on 12/19/18at 22:39; Admin Dose 15 GM; Start 12/18/18 at 13:00 Glucose (Glutose) 22.5 gm Q15M PRN PO DECREASED GLUCOSE Last administered on 12/19/18at 23:35; Admin Dose 22.5 GM; Start 12/18/18 at 13:00 Dextrose (D50w Syringe) 25 ml Q15M PRN IV DECREASED GLUCOSE; Start 12/18/18 at 13:00 Dextrose (D50w Syringe) 50 ml Q15M PRN IV DECREASED GLUCOSE Last administered on 12/22/18at 07:09; Admin Dose 50 ML; Start 12/18/18 at 13:00 Glucagon (Glucagen) 1 mg Q15M PRN IM DECREASED GLUCOSE; Start 12/18/18 at 13:00 Glucose (Glutose) 15 gm Q15M PRN BUCCAL DECREASED GLUCOSE; Start 12/18/18 at 1 3:00 Epoetin Josias-epbx (Retacrit (Esrd)) 8,000 unit MoWeFr@1700 SC Last administered on 12/23/18at 16:05; Admin Dose 8,000 UNIT; Start 12/18/18 at 17:00 Levofloxacin (Levaquin) 500 mg Q48H PO Last administered on 12/22/18at 08:40; Admin Dose 500 MG; Start 12/20/18 at 08:00 Povidone Iodine (Povidone-Iodine) 1 applic BID TOP Last administered on 12/23/18 08:09; Admin Dose 1 APPLIC; Start 12/18/18 at 21:00 Sodium Hypochlorite (Dakins Diluted ()) 1 applic BID TP Last administered on 12/23/18 08:09; Admin Dose 1 APPLIC; Start 12/18/18 at 21:00 Multi-Ingredient Ointment (Eucerin Cream) 1 applic DAILY TOP Last administered on 6/10/19at 08:09; Admin Dose 1 APPLIC; Start 12/19/18 at 10:28 Dextrose/Sodium Chloride 1,000 ml @ 50 mls/hr Q20H IV Last administered on 12/23/18at 07:00; Admin Dose 50 MLS/HR; Start 12/21/18 at 13:30 Ondansetron HCl (Zofran Inj) 4 mg Q6H PRN IV NAUSEA AND/OR VOMITING Last administered on 12/23/18 05:05; Admin Dose 4 MG; Start 12/21/18 at 13:30 Amlodipine Besylate (Norvasc) 5 mg DAILY PO ; Start 12/23/18 at 09:00 Insulin Glargine (Lantus) 3 units DAILY@2000 SC Last administered on 12/22/18at 21:59; Admin Dose 3 UNITS; Start 12/22/18 at 20:00 Lisinopril (Zestril) 40 mg DAILY PO ; Start 12/23/18 at 09:00 Metoprolol Tartrate (Lopressor) 50 mg BID PO Last administered on 12/22/18at 21:40; Admin Dose 50 MG; Start 12/22/18 at 21:00 Linagliptin (Tradjenta) 5 mg DAILY PO Last administered on 12/22/18 15:26; Admin Dose 5 MG; Start 12/22/18 at 14:30 Bromocriptine Mesylate (Parlodel) 2.5 mg QHS PO Last administered on 12/22/18at 21:48; Admin Dose 2.5 MG; Start 12/22/18 at 21:00 Diagnostic Test (Pha) (Accu-Chek) 1 ea 2 HOURS AFTER MEALS XX ; Start 12/22/18 at 20:00 Diagnostic Test (Pha) (Accu-Chek) 1 ea AC MEALS XX Last administered on 12/22/18 17:02; Admin Dose 1 EA; Start 12/22/18 at 17:30 Vancomycin HCl 250 ml @ 125 mls/hr Q96H IVPB Last administered on 12/23/18at 11:53; Admin Dose 125 MLS/HR; Start 12/23/18 at 12:00 BLAINE FAIRBANKS DPM Dec 23, 2018 17:37
[2018-12-23] MEDS: BROMOCRIPTINE 2.5 MG TAB PO SCH (20:26)
[2018-12-23] MEDS: ATORVASTATIN 80 MG TAB PO SCH (20:26)
[2018-12-23] MEDS: MIRTAZAPINE 15 MG TAB PO SCH (20:26)
[2018-12-23] MEDS: INSULIN GLARGINE [LANTus] (100 UNITS/ML) SYG SC SCH (21:14)
[2018-12-24] VITALS (12 sets, daily range): BP systolic 132–156; BP diastolic 66–79; PULSE 76–89; RESP 16–18
[2018-12-24] MEDS: DEXTROSE 5%-0.45% NACL 1,000 ML IV SCH (01:30)
[2018-12-24] MEDS: ACCU-CHEK XX SCH ×7 (02:00→20:22)
[2018-12-24] MEDS: INSULIN ASPART [NOVOLOG] 3 ML PEN SC SCH ×4 (08:29→20:23)
[2018-12-24] MEDS: AMLODIPINE 5 MG TAB PO SCH (08:42)
[2018-12-24] MEDS: SEVELAMER CARBONATE 800 MG TABLET PO SCH ×3 (08:42→17:18)
[2018-12-24] MEDS: MULTIVIT/CA CARB/B CMPLX/FA TAB PO SCH (08:42)
[2018-12-24] MEDS: ASPIRIN (EC) 81 MG TAB PO SCH (08:42)
[2018-12-24] MEDS: CLOPIDOGREL 75 MG TAB PO SCH (08:42)
[2018-12-24] MEDS: LISINOPRIL 20 MG TAB PO SCH (08:43)
[2018-12-24] MEDS: ZINC SULFATE 220 MG CAP PO SCH (08:43)
[2018-12-24] MEDS: LINAGLIPTIN 5 MG TABLET PO SCH (08:43)
[2018-12-24] MEDS: PAROXETINE 10 MG TAB PO SCH (08:43)
[2018-12-24] MEDS: BACLOFEN 10 MG TAB PO SCH ×3 (08:43→20:22)
[2018-12-24] MEDS: LEVOFLOXACIN 500 MG TAB PO SCH (08:43)
[2018-12-24] MEDS: METOPROLOL 50 MG TAB PO SCH ×2 (08:43→20:22)
[2018-12-24] MEDS: EUCERIN 113 GM CR TOP SCH (08:44)
[2018-12-24] MEDS: POVIDONE IODINE 10% 28.4 GM OINT TOP SCH ×2 (08:44→20:23)
[2018-12-24] MEDS: DAKINS 0.0125%(1/40) 473 ML SOLUTION TP SCH ×2 (08:44→20:23)
--- NOTE | 2018-12-24 08:51 | PN ---
DATE: 12/24/2018 SUBJECTIVE: The patient is stable. No events overnight. OBJECTIVE: VITAL SIGNS: Blood pressure is 146/68, pulse 81, temperature 98.3. HEENT: Head is normocephalic. NECK: Supple. HEART: Regular rate. LUNGS: Show diminished breath sounds at the base. ABDOMEN: Soft, nontender to palpation without rebound or guarding. EXTREMITIES: Negative for clubbing, cyanosis, no edema. DERMATOLOGIC: No rashes. MUSCULOSKELETAL: No joint effusion. NEUROLOGIC: No change in exam. MEDICATIONS: The patient's medications have been reviewed. LABORATORY DATA: Has been reviewed. ASSESSMENT AND PLAN: 1. End-stage renal disease. The patient had hemodialysis yesterday, tolerated well. Plan for dialy sis again tomorrow. 2. Hyperkalemia, resolved. 3. Anemia. Monitor hemoglobin and hematocrit levels those. Continue Epogen. 4. Mineral bone disorder, monitor calcium and phosphorus levels. 5. Diabetic foot ulcer. Continue to monitor. Follow up with podiatry. 6. Diabetes. Continue current insulin regimen. 7. History of cerebrovascular accident. 8. Encephalopathy, etiology is toxic metabolic. Continue to monitor. 9. Hypertension. Continue current blood pressure regimen. 10. Dyslipidemia. Continue statin therapy. Dictated By: RUFUS VEGA DO NR/NTS Conf#: [id number] DID#: [id number] CC: JACKI LARA MD; BLAINE FAIRBANKS DPM;*EndCC*
--- NOTE | 2018-12-24 11:08 | CONS ---
Consult Date/Type/Reason Admit Date/Time Dec 18, 2018 at 04:02 Initial Consult Date 12/22/18 Requesting Provider: ADRIANA JUSTICE Date/Time of Note DATE: 12/24/18 TIME: 11:06 Subjective NO acute events - pt comfortable - denies CP - BP reasonably controlled. ROS: No fever, no chills, no nausea, no vomiting, no diarrhea/constipation - pain Rx No recent weight changes No chest pain, no PND, no orthopnea + mild SOB No dizziness, blurred vision No thirst, no heat or cold intolerance Objective Vitals Vital Signs Date Temp Pulse Resp B/P (MAP) Pulse Ox O2 O2 Flow FiO2 Time Delivery Rate 12/24/18 81 08:01 12/24/18 98.3 18 146/68 100 07:10 (94) 12/23/18 Room Air 11:24 Intake and Output 12/23/18 12/23/18 12/24/18 1515:00 23:00 07:00 IntakeIntake Total 250 ml OutputOutput Total 2400 ml 3 ml BalanceBalance -2400 ml 247 ml Exam General: WN/WD/NAD, AOx 1-2 HEENT: Unicetric/atraumatic/EOMI (follow commands) NECK: JVD elevated, no thyromegaly Lymph: no lymphadenopathy HEART: regular with no S3, II/ systolic murmur at apex LUNGS: Coarse sounds ABD: soft, NT, ND, +BS : Intact Neuro: non focal SKIN: chronic changes, skin sloughing off EXT: trace edema Results/Medications Result Diagram: 12/24/18 0502 12/24/18 0502 Results 24 hrs Laboratory Tests Test 12/23/18 11:52 12/23/18 16:03 12/23/18 20:25 12/24/18 05:02 Bedside Glucose 132 76 78 White Blood Count 6.0 Red Blood Count 2.86 L Hemoglobin 8.1 L Hematocrit 26.4 L Mean Corpuscular 92.3 Volume Mean Corpuscular 28.3 L Hemoglobin Mean Corpuscular 30.7 L Hemoglobin Concent Red Cell 17.1 H Distribution Width Platelet Count 288 Mean Platelet Volume 10.5 H Immature 0.200 Granulocytes % Neutrophils % 65.8 Lymphocytes % 14.7 L Monocytes % 16.5 H Eosinophils % 1.0 Basophils % 1.8 Nucleated Red Blood 0.0 Cells % Immature 0.010 Granulocytes # Neutrophils # 4.0 Lymphocytes # 0.9 Monocytes # 1.0 H Eosinophils # 0.1 Basophils # 0.1 Nucleated Red Blood 0.0 Cells # Sodium Level 138 Potassium Level 4.4 Chloride Level 100 Carbon Dioxide Level 30 Anion Gap 8 Blood Urea Nitrogen 17 Creatinine 5.34 H Est Glomerular 13 L Filtrat Rate mL/min Glucose Level 209 Calcium Level 8.1 L Test 12/24/18 08:23 12/24/18 10:11 Bedside Glucose 235 H 197 Home Meds Reported Medications Folic Acid/Vitamin B Comp W-C (Renal Multivitamin Tablet) 0.8 Mg Tablet, 1 TAB PO DAILY for 90 Days, #90 12/18/18 Glimepiride* (Glimepiride*) 2 Mg Tablet, 2 MG PO BID for 90 Days, #180 12/18/18 Clopidogrel Bisulfate (Clopidogrel) 75 Mg Tablet, 75 MG PO DAILY for 90 Days, #90 12/18/18 Levofloxacin* (Levofloxacin*) 500 Mg Tablet, 500 MG PO DAILY 12/18/18 Amlodipine Besylate* (Norvasc*) 10 Mg Tablet, 10 MG PO DAILY, TAB 07/12/18 Sevelamer Hcl* (Renagel*) 800 Mg Tablet, 800 MG PO WITH MEALS, TAB 07/12/18 Zinc Sulfate* (Zinc Sulfate*) 220 Mg Cap, 220 MG PO DAILY, CAP 07/12/18 Glipizide* (Glipizide*) 5 Mg Tablet, 5 MG PO AC BREAKFAST DINNER, TAB 07/12/18 Folic Acid/Vitamin B Comp W-C (Nephrocaps Capsule) 1 Mg Capsule, 1 MG PO DAILY, CAP 07/12/18 Atorvastatin* (Atorvastatin*) 80 Mg Tablet, 80 MG PO QHS, #30 TAB 07/12/18 Baclofen* (Baclofen*) 10 Mg Tablet, 10 MG PO TID, TAB 07/12/18 Mirtazapine* (Mirtazapine*) 15 Mg Tablet, 15 MG PO HS, TAB 07/12/18 Aspirin (Low Dose Aspirin) 81 Mg Tablet.dr, 81 MG PO DAILY, #30 TAB 07/12/18 Paroxetine Hcl* (Paxil*) 10 Mg Tablet, 10 MG PO DAILY, TAB 12/28/18 Medications Current Medications Vancomycin HCl (Vanco Iv Per Pharmacy) VANCOMYCIN PER PHARMACY PER PROTOCOL XX ; Start 12/18/18 at 09:30 Hydralazine HCl (Apresoline) 20 mg Q4 PRN IV HIGH BLOOD Last administered on 12/21/18 03:13; Admin Dose 20 MG; Start 12/18/18 at 09:30 Acetaminophen (Tylenol Tab) 650 mg Q4H PRN PO MILD PAIN(1-3)OR ELEVATED TEMP; Start 12/18/18 at 09:30 Acetaminophen/ Hydrocodone Bitart ([place] (5/325)) 1 tab Q4H PRN PO MODERATE PAIN LEVEL 4-6 Last administered on 12/22/18 00:00; Admin Dose 1 TAB; Start 12/18/18 at 09:30 Insulin Aspart (Novolog Insulin Pen) NOVOLOG *MILD* ALGORITHM WITH MEALS BEDTIME SC Last administered on 12/24/18 08:29; Admin Dose 3 UNIT; Start 12/18/18 at 12:00 Aspirin (Halfprin) 81 mg DAILY PO Last administered on 12/24/18 08:42; Admin Dose 81 MG; Start 12/18/18 at 09:30 Atorvastatin Calcium (Lipitor) 80 mg QHS PO Last administered on 12/23/18 20:26; Admin Dose 80 MG; Start 12/18/18 at 21:00 Baclofen (Lioresal) 10 mg TID PO Last administered on 12/24/18 08:43; Admin Dose 10 MG; Start 12/18/18 at 13:00 Clopidogrel Bisulfate (plaVIX) 75 mg DAILY PO Last administered on 12/24/18 08 :42; Admin Dose 75 MG; Start 12/18/18 at 09:30 Multivit/Ca Carb/ B Cmplx/FA/Prenat (Amarilis-Christina) 1 tab DAILY PO Last administered on 12/24/18 08:42; Admin Dose 1 TAB; Start 12/18/18 at 09:30 Mirtazapine (Remeron) 15 mg HS PO Last administered on 12/23/18 20:26; Admin Dose 15 MG; Start 12/18/18 at 21:00 Paroxetine HCl (Paxil) 10 mg DAILY PO Last administered on 12/24/18 08:43; Admin Dose 10 MG; Start 12/18/18 at 09:30 Zinc Sulfate (Zinc Sulfate) 220 mg DAILY PO Last administered on 12/24/18 08: 43; Admin Dose 220 MG; Start 12/18/18 at 09:30 Sevelamer Carbonate (Renvela) 800 mg WITH MEALS PO Last administered on 12/24/18at 08:42; Admin Dose 800 MG; Start 12/18/18 at 11:30 Diagnostic Test (Pha) (Accu-Chek) 1 ea 02 XX ; Start 12/19/18 at 02:00 Miscellaneous Information 1 ea NOTE XX ; Start 12/18/18 at 13:00 Glucose (Glutose) 15 gm Q15M PRN PO DECREASED GLUCOSE Last administered on 12/19/18at 22:39; Admin Dose 15 GM; Start 12/18/18 at 13:00 Glucose (Glutose) 22.5 gm Q15M PRN PO DECREASED GLUCOSE Last administered on 12/19/18at 23:35; Admin Dose 22.5 GM; Start 12/18/18 at 13:00 Dextrose (D50w Syringe) 25 ml Q15M PRN IV DECREASED GLUCOSE; Start 12/18/18 at 13:00 Dextrose (D50w Syringe) 50 ml Q15M PRN IV DECREASED GLUCOSE Last administered on 12/22/18at 07:09; Admin Dose 50 ML; Start 12/18/18 at 13:00 Glucagon (Glucagen) 1 mg Q15M PRN IM DECREASED GLUCOSE; Start 12/18/18 at 13:00 Glucose (Glutose) 15 gm Q15M PRN BUCCAL DECREASED GLUCOSE; Start 12/18/18 at 13:00 Epoetin Josias-epbx (Retacrit (Esrd)) 8,000 unit MoWeFr@1700 SC Last administered on 12/23/18at 16:05; Admin Dose 8,000 UNIT; Start 12/18/18 at 17:00 Levofloxacin (Levaquin) 500 mg Q48H PO Last administered on 12/24/18at 08:43; Admin Dose 500 MG; Start 12/20/18 at 08:00 Povidone Iodine (Povidone-Iodine) 1 applic BID TOP Last administered on 12/24/18at 08:44; Admin Dose 1 APPLIC; Start 12/18/18 at 21:00 Sodium Hypochlorite (Dakins Diluted (1/40)) 1 applic BID TP Last administered on 12/24/18 08:44; Admin Dose 1 APPLIC; Start 12/18/18 at 21:00 Multi-Ingredient Ointment (Eucerin Cream) 1 applic DAILY TOP Last administered on 12/24/18 08:44; Admin Dose 1 APPLIC; Start 12/19/18 at 10:28 Dextrose/Sodium Chloride 1,000 ml @ 50 mls/hr Q20H IV Last administered on 12/23/18 07:00; Admin Dose 50 MLS/HR; Start 12/21/18 at 13:30 Ondansetron HCl (Zofran Inj) 4 mg Q6H PRN IV NAUSEA AND/OR VOMITING Last administered on 12/23/18 05:05; Admin Dose 4 MG; Start 12/21/18 at 13:30 Amlodipine Besylate (Norvasc) 5 mg DAILY PO Last administered on 12/24/18 08:42; Admin Dose 5 MG; Start 12/23/18 at 09:00 Insulin Glargine (Lantus) 3 units DAILY@2000 SC Last administered on 12/23/18 21:14; Admin Dose 3 UNITS; Start 12/22/18 at 20:00 Lisinopril (Zestril) 40 mg DAILY PO Last administered on 12/24/18 08:43; Admin Dose 40 MG; Start 12/23/18 at 09:00 Metoprolol Tartrate (Lopressor) 50 mg BID PO Last administered on 12/24/18 08:43; Admin Dose 50 MG; Start 12/22/18 at 21:00 Linagliptin (Tradjenta) 5 mg DAILY PO Last administered on 12/24/18 08:43; Admin Dose 5 MG; Start 12/22/18 at 14:30 Bromocriptine Mesylate (Parlodel) 2.5 mg QHS PO Last administered on 12/23/18 20:26; Admin Dose 2.5 MG; Start 12/22/18 at 21:00 Diagnostic Test (Pha) (Accu-Chek) 1 ea 2 HOURS AFTER MEALS XX Last administered on 12/24/18 10:12; Admin Dose 1 EA; Start 12/22/18 at 20:00 Diagnostic Test (Pha) (Accu-Chek) 1 ea AC MEALS XX Last administered on 6/11/19at 07:00; Admin Dose 1 EA; Start 12/22/18 at 17:30 Vancomycin HCl 250 ml @ 125 mls/hr Q96H IVPB Last administered on 12/23/18at 11:53; Admin Dose 125 MLS/HR; Start 12/23/18 at 12:00 Assessment/Plan Hospital Course (Demo Recall) 1. Preoperative evaluation prior to possible toe amputation and possible need for further evaluation.-neg trop x 3. NL EF by echo. Ok to proceed with toe amputation under nerve block or MAC at moderate CV risk from cardiac stndpoint but have concern for neuological status - stable, surgical team follows 2. Hypertension- reasonable control. Will follow. 3. History of dyslipidemia. 4. Peripheral arterial disease with nonhealing lower extremity ulcers - surgical care and wound care in place. 5. Nonhealing lower extremity ulcers. 6. Cellulitis- on anti-Bx. 7. Diabetes mellitus- Rx to goal. 8. Psychiatric disorder. 9. New change in MS-? CVA-head CT 12/20 neg for acute changes. ECG most recent without acute changes. Again today with acute changes in MS - defer to neurology team. LAUREN PARMAR MD Dec 24, 2018 11:08
--- NOTE | 2018-12-24 12:21 | CONS ---
Assessment/Plan Assessment/Plan Hospital Course (Demo Recall) Looks comfortable, no fevers, CT rain noted Indwelling's: Left upper extremity AV fistula Allergy: Clindamycin Antimicrobials: Levofloxacin, Vanco Physical examination: Well-developed well-nourished elderly -[place] male in who is in no distress. Head atraumatic normocephalic neck is supple chest rise symmetrical breath sounds diminished bases. Heart: S1-S2. Abdomen soft bowel sounds present. Extremities with bilateral lower extremities dressing intact Assessment: 1. Bilateral lower extremities wounds with cellulitis and osteomyelitis 2. End-stage renal disease 3. Diabetes 4. Diabetic neuropathy Plan: Clinically unchanged, continue antibiotics, plan for right 2nd toe amputation Consultation Date/Type/Reason Admit Date/Time Dec 18, 2018 at 04:02 Initial Consult Date 12/18/18 Type of Consult id Requesting Provider: ADRIANA JUSTICE Date/Time of Note DATE: 12/24/18 TIME: 12:19 Exam/Review of Systems Exam Vitals Vital Signs Date Temp Pulse Resp B/P (MAP) Pulse Ox O2 O2 Flow FiO2 Time Delivery Rate 12/24/18 81 12:06 12/24/18 97.9 18 145/72 100 11:29 (96) 12/23/18 Room Air 11:24 Intake and Output 12/23/18 12/23/18 12/24/18 1515:00 23:00 07:00 IntakeIntake Total 250 ml OutputOutput Total 2400 ml 3 ml BalanceBalance -2400 ml 247 ml Results Result Diagram: 12/24/18 0502 12/24/18 0502 Results 24hrs Laboratory Tests Test 12/23/18 16:03 12/23/18 20:25 12/24/18 05:02 12/24/18 08:23 Bedside Glucose 76 78 235 H White Blood Count 6.0 Red Blood Count 2.86 L Hemoglobin 8.1 L Hematocrit 26.4 L Mean Corpuscular 92.3 Volume Mean Corpuscular 28.3 L Hemoglobin Mean Corpuscular 30.7 L Hemoglobin Concent Red Cell 17.1 H Distribution Width Platelet Count 288 Mean Platelet Volume 10.5 H Immature 0.200 Granulocytes % Neutrophils % 65.8 Lymphocytes % 14.7 L Monocytes % 16.5 H Eosinophils % 1.0 Basophils % 1.8 Nucleated Red Blood 0.0 Cells % Immature 0.010 Granulocytes # Neutrophils # 4.0 Lymphocytes # 0.9 Monocytes # 1.0 H Eosinophils # 0.1 Basophils # 0.1 Nucleated Red Blood 0.0 Cells # Sodium Level 138 Potassium Level 4.4 Chloride Level 100 Carbon Dioxide Level 30 Anion Gap 8 Blood Urea Nitrogen 17 Creatinine 5.34 H Est Glomerular 13 L Filtrat Rate mL/min Glucose Level 209 Calcium Level 8.1 L Test 12/24/18 10:11 12/24/18 11:34 12/24/18 12:14 Bedside Glucose 197 185 164 Medications Medication Current Medications Vancomycin HCl (Vanco Iv Per Pharmacy) VANCOMYCIN PER PHARMACY PER PROTOCOL XX ; Start 12/18/18 at 09:30 Hydralazine HCl (Apresoline) 20 mg Q4 PRN IV HIGH BLOOD Last administered on 12/21/18 03:13; Admin Dose 20 MG; Start 12/18/18 at 09:30 Acetaminophen (Tylenol Tab) 650 mg Q4H PRN PO MILD PAIN(1-3)OR ELEVATED TEMP; Start 12/18/18 at 09:30 Acetaminophen/ Hydrocodone Bitart ([place] (5/325)) 1 tab Q4H PRN PO MODERATE PAIN LEVEL 4-6 Last administered on 12/22/18 00:00; Admin Dose 1 TAB; Start 12/18/18 at 09:30 Insulin Aspart (Novolog Insulin Pen) NOVOLOG *MILD* ALGORITHM WITH MEALS BEDTIME SC Last administered on 12/24/18 08:29; Admin Dose 3 UNIT; Start 12/18/18 at 12:00 Aspirin (Halfprin) 81 mg DAILY PO Last administered on 12/24/18 08:42; Admin Dose 81 MG; Start 12/18/18 at 09:30 Atorvastatin Calcium (Lipitor) 80 mg QHS PO Last administered on 12/23/18 20:26; Admin Dose 80 MG; Start 12/18/18 at 21:00 Baclofen (Lioresal) 10 mg TID PO Last administered on 12/24/18 08:43; Admin Dose 10 MG; Start 12/18/18 at 13:00 Clopidogrel Bisulfate (plaVIX) 75 mg DAILY PO Last administered on 12/24/18 08:42; Admin Dose 75 MG; Start 12/18/18 at 09:30 Multivit/Ca Carb/ B Cmplx/FA/Prenat (Amarilis-Christina) 1 tab DAILY PO Last administer ed on 12/24/18 08:42; Admin Dose 1 TAB; Start 12/18/18 at 09:30 Mirtazapine (Remeron) 15 mg HS PO Last administered on 12/23/18 20:26; Admin Dose 15 MG; Start 12/18/18 at 21:00 Paroxetine HCl (Paxil) 10 mg DAILY PO Last administered on 12/24/18 08:43; Admin Dose 10 MG; Start 12/18/18 at 09:30 Zinc Sulfate (Zinc Sulfate) 220 mg DAILY PO Last administered on 12/24/18 08:43; Admin Dose 220 MG; Start 12/18/18 at 09:30 Sevelamer Carbonate (Renvela) 800 mg WITH MEALS PO Last administered on 08:42; Admin Dose 800 MG; Start 12/18/18 at 11:30 Diagnostic Test (Pha) (Accu-Chek) 1 ea 02 XX ; Start 12/19/18 at 02:00 Miscellaneous Information 1 ea NOTE XX ; Start 12/18/18 at 13:00 Glucose (Glutose) 15 gm Q15M PRN PO DECREASED GLUCOSE Last administered on 12/19/18 22:39; Admin Dose 15 GM; Start 12/18/18 at 13:00 Glucose (Glutose) 22.5 gm Q15M PRN PO DECREASED GLUCOSE Last administered on 23:35; Admin Dose 22.5 GM; Start 12/18/18 at 13:00 Dextrose (D50w Syringe) 25 ml Q15M PRN IV DECREASED GLUCOSE; Start 12/18/18 at 13:00 Dextrose (D50w Syringe) 50 ml Q15M PRN IV DECREASED GLUCOSE Last administered on 12/22/18 07:09; Admin Dose 50 ML; Start 12/18/18 at 13:00 Glucagon (Glucagen) 1 mg Q15M PRN IM DECREASED GLUCOSE; Start 12/18/18 at 13:00 Glucose (Glutose) 15 gm Q15M PRN BUCCAL DECREASED GLUCOSE; Start 12/18/18 at 13:00 Epoetin Josias-epbx (Retacrit (Esrd)) 8,000 unit MoWeFr@1700 SC Last administered on 12/23/18 16:05; Admin Dose 8,000 UNIT; Start 12/18/18 at 17:00 Levofloxacin (Levaquin) 500 mg Q48H PO Last administered on 12/24/18 08:43; Admin Dose 500 MG; Start 12/20/18 at 08:00 Povidone Iodine (Povidone-Iodine) 1 applic BID TOP Last administered on 12/24/18 08:44; Admin Dose 1 APPLIC; Start 12/18/18 at 21:00 Sodium Hypochlorite (Dakins Diluted ()) 1 applic BID TP Last administered on 12/24/18 08:44; Admin Dose 1 APPLIC; Start 12/18/18 at 21:00 Multi-Ingredient Ointment (Eucerin Cream) 1 applic DAILY TOP Last administered on 12/24/18 08:44; Admin Dose 1 APPLIC; Start 12/19/18 at 10:28 Dextrose/Sodium Chloride 1,000 ml @ 50 mls/hr Q20H IV Last administered on 12/23/18 07:00; Admin Dose 50 MLS/HR; Start 12/21/18 at 13:30 Ondansetron HCl (Zofran Inj) 4 mg Q6H PRN IV NAUSEA AND/OR VOMITING Last administered on 12/23/18 05:05; Admin Dose 4 MG; Start 12/21/18 at 13:30 Amlodipine Besylate (Norvasc) 5 mg DAILY PO Last administered on 12/24/18 08:42; Admin Dose 5 MG; Start 12/23/18 at 09:00 Insulin Glargine (Lantus) 3 units DAILY@2000 SC Last administered on 12/23/18 21:14; Admin Dose 3 UNITS; Start 12/22/18 at 20:00 Lisinopril (Zestril) 40 mg DAILY PO Last administered on 12/24/18 08:43; Admin Dose 40 MG; Start 12/23/18 at 09:00 Metoprolol Tartrate (Lopressor) 50 mg BID PO Last administered on 12/24/18 08:43; Admin Dose 50 MG; Start 12/22/18 at 21:00 Linagliptin (Tradjenta) 5 mg DAILY PO Last administered on 12/24/18 08:43; Admin Dose 5 MG; Start 12/22/18 at 14:30 Bromocriptine Mesylate (Parlodel) 2.5 mg QHS PO Last administered on 12/23/18 20:26; Admin Dose 2.5 MG; Start 12/22/18 at 21:00 Diagnostic Test (Pha) (Accu-Chek) 1 ea 2 HOURS AFTER MEALS XX Last administered on 12/24/18 10:12; Admin Dose 1 EA; Start 12/22/18 at 20:00 Diagnostic Test (Pha) (Accu-Chek) 1 ea AC MEALS XX Last administered on 12/24/18 11:36; Admin Dose 1 EA; Start 12/22/18 at 17:30 Vancomycin HCl 250 ml @ 125 mls/hr Q96H IVPB Last administered on 12/23/18 11:53; Admin Dose 125 MLS/HR; Start 12/23/18 at 12:00 SARABJIT DILLARD NP Dec 24, 2018 12:21
--- NOTE | 2018-12-24 12:45 | CONSI ---
Assessment/Plan Assessment/Plan Assessment/Plan (Recall) 63 M c/ Hx or prior stroke, ESRD on HD, and other comorbidities...who is admitted for management of cellulitis.. During HD on 12/23, he was noted to be transiently nonverbal...for which neurology is consulted.. He is noted to have been periodically hypoglycemic earlier on in this admission...which could in theory precipitate a similar presentation. Seizure and TIA are also worth considering.. Head CT shows chronic ischemic changes, without obvious acute pathology. P: MRI brain for further characterization Agree w/ Plavix for secondary stroke prevention for now (lipids are at goal) EEG to evaluate for epileptiform activity [place] as necessary Limit sedating medications where possible PT/OT/ST as necessary Other medical management per primary Will follow clinically Consultation Date/Type/Reason Admit Date/Time Dec 18, 2018 at 04:02 Type of Consult Neurology Reason for Consultation aphasia Requesting Provider: ADRIANA JUSTICE Date/Time of Note DATE: 12/24/18 TIME: 12:34 Hx of Present Illness The patient is 63-year-old gentleman with history of strokes, diabetes, hemodialysis dependent end-stage renal disease, and hyperlipidemia. 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 Most of the history was obtained from medical records. Patient was sent from PMD office for right foot ulcer with cellulitis. Patient stated that he had his hemodialysis 2 days ago. Patient denies any shortness of breath denies any chest pain denies any fever chills, denies any nausea vomiting diarrhea. Patient was started on vancomycin and Zosyn for a right foot ulcer and admitted for further evaluation and management to medical surgical floor. On 12/23, presumably during HD, the patient was noted to be nonverbal...for uncertain duration..for which neurology is consulted. He cannot provide any details regarding this event. 12 PT ROS ow neg Objective Exam Vitals Vital Signs Date Temp Pulse Resp B/P (MAP) Pulse Ox O2 O2 Flow FiO2 Time Delivery Rate 12/24/18 81 12:06 12/24/18 97.9 18 145/72 100 11:29 (96) 12/23/18 Room Air 11:24 Intake and Output 12/23/18 12/23/18 12/24/18 1515:00 23:00 07:00 IntakeIntake Total 250 ml OutputOutput Total 2400 ml 3 ml BalanceBalance -2400 ml 247 ml Exam PE: Gen Appearance: No Apparent Distress HEENT: Normocephalic Cardiovascular: Regular rate Abdomen: Soft Extremities: Dry, thin; skin flaking.. NE: The patient was alert and oriented to person and hospital only. Language was normal. Fund of knowledge was limited. Pupils were equal and reactive to light. There was no afferent pupillary defect. Visual benavidez were normal. Funduscopic examination was limited. Extra-ocular movements were full. Ptosis was absent. There was no nystagmus. Facial sensation was normal. Face was symmetric with normal strength. Hearing was intact. Palate movements were normal. Neck strength was normal. There was normal tongue bulk and speed of movement. Tone was normal. Muscle bulk was reduced. I did not see fasciculations. Arms and legs were symmetric. Vibration sensation was reduced distally. Temperature and pinprick sensation was normal. Rapid alternating movements were slow. There was no dysmetria. There was no intention tremor. Gait was deferred due to bedrest. Arm and leg reflexes were symmetric. Nayak's sign was absent. Plantar responses were flexor. Results Result Diagram: 12/24/18 0502 12/24/18 0502 Results 24hrs Laboratory Tests Test 12/23/18 16:03 12/23/18 20:25 12/24/18 05:02 12/24/18 08:23 Bedside Glucose 76 78 235 H White Blood Count 6.0 Red Blood Count 2.86 L Hemoglobin 8.1 L Hematocrit 26.4 L Mean Corpuscular 92.3 Volume Mean Corpuscular 28.3 L Hemoglobin Mean Corpuscular 30.7 L Hemoglobin Concent Red Cell 17.1 H Distribution Width Platelet Count 288 Mean Platelet Volume 10.5 H Immature 0.200 Granulocytes % Neutrophils % 65.8 Lymphocytes % 14.7 L Monocytes % 16.5 H Eosinophils % 1.0 Basophils % 1.8 Nucleated Red Blood 0.0 Cells % Immature 0.010 Granulocytes # Neutrophils # 4.0 Lymphocytes # 0.9 Monocytes # 1.0 H Eosinophils # 0.1 Basophils # 0.1 Nucleated Red Blood 0.0 Cells # Sodium Level 138 Potassium Level 4.4 Chloride Level 100 Carbon Dioxide Level 30 Anion Gap 8 Blood Urea Nitrogen 17 Creatinine 5.34 H Est Glomerular 13 L Filtrat Rate mL/min Glucose Level 209 Calcium Level 8.1 L Test 12/24/18 10:11 12/24/18 11:34 12/24/18 12:14 Bedside Glucose 197 185 164 Past Medical History Medical History: diabetes, high cholesterol, hypertension, renal disease (End- stage renal disease on hemodialysis 3 days a week), other (Status post CVA possibly multiple; peripheral vascular disease; osteomyelitis of the second toe; dysthymia; anemia; grade 1 diastolic dysfunction; former smoker) Home Meds Reported Medications Folic Acid/Vitamin B Comp W-C (Renal Multivitamin Tablet) 0.8 Mg Tablet, 1 TAB PO DAILY for 90 Days, #90 12/18/18 Glimepiride* (Glimepiride*) 2 Mg Tablet, 2 MG PO BID for 90 Days, #180 12/18/18 Clopidogrel Bisulfate (Clopidogrel) 75 Mg Tablet, 75 MG PO DAILY for 90 Days, #90 12/18/18 Levofloxacin* (Levofloxacin*) 500 Mg Tablet, 500 MG PO DAILY 12/18/18 Amlodipine Besylate* (Norvasc*) 10 Mg Tablet, 10 MG PO DAILY, TAB 07/12/18 Sevelamer Hcl* (Renagel*) 800 Mg Tablet, 800 MG PO WITH MEALS, TAB 07/12/18 Zinc Sulfate* (Zinc Sulfate*) 220 Mg Cap, 220 MG PO DAILY, CAP 07/12/18 Glipizide* (Glipizide*) 5 Mg Tablet, 5 MG PO AC BREAKFAST DINNER, TAB 07/12/18 Folic Acid/Vitamin B Comp W-C (Nephrocaps Capsule) 1 Mg Capsule, 1 MG PO DAILY, CAP 07/12/18 Atorvastatin* (Atorvastatin*) 80 Mg Tablet, 80 MG PO QHS, #30 TAB 07/12/18 Baclofen* (Baclofen*) 10 Mg Tablet, 10 MG PO TID, TAB 07/12/18 Mirtazapine* (Mirtazapine*) 15 Mg Tablet, 15 MG PO HS, TAB 07/12/18 Aspirin (Low Dose Aspirin) 81 Mg Tablet.dr, 81 MG PO DAILY, #30 TAB 07/12/18 Paroxetine Hcl* (Paxil*) 10 Mg Tablet, 10 MG PO DAILY, TAB 07/12/18 Medications Current Medications Vancomycin HCl (Vanco Iv Per Pharmacy) VANCOMYCIN PER PHARMACY PER PROTOCOL XX ; Start 12/18/18 at 09:30 Hydralazine HCl (Apresoline) 20 mg Q4 PRN IV HIGH BLOOD Last administered on 12/21/18 03:13; Admin Dose 20 MG; Start 12/18/18 at 09:30 Acetaminophen (Tylenol Tab) 650 mg Q4H PRN PO MILD PAIN(1-3)OR ELEVATED TEMP; Start 12/18/18 at 09:30 Acetaminophen/ Hydrocodone Bitart ([place] (5/325)) 1 tab Q4H PRN PO MODERATE PAIN LEVEL 4-6 Last administered on 12/22/18 00:00; Admin Dose 1 TAB; Start 12/18/18 at 09:30 Insulin Aspart (Novolog Insulin Pen) NOVOLOG *MILD* ALGORITHM WITH MEALS BEDTIME SC Last administered on 12/24/18 12:25; Admin Dose 1 UNIT; Start 12/18/18 at 12:00 Aspirin (Halfprin) 81 mg DAILY PO Last administered on 12/24/18 08:42; Admin Dose 81 MG; Start 12/18/18 at 09:30 Atorvastatin Calcium (Lipitor) 80 mg QHS PO Last administered on 12/23/18 20:26; Admin Dose 80 MG; Start 12/18/18 at 21:00 Baclofen (Lioresal) 10 mg TID PO Last administered on 12/24/18 08:43; Admin Dose 10 MG; Start 12/18/18 at 13:00 Clopidogrel Bisulfate (plaVIX) 75 mg DAILY PO Last administered on 12/24/18 08:42; Admin Dose 75 MG; Start 12/18/18 at 09:30 Multivit/Ca Carb/ B Cmplx/FA/Prenat (Amarilis-Christina) 1 tab DAILY PO Last administered on 12/24/18 08:42; Admin Dose 1 TAB; Start 12/18/18 at 09:30 Mirtazapine (Remeron) 15 mg HS PO Last administered on 12/23/18 20:26; Admin Dose 15 MG; Start 12/18/18 at 21:00 Paroxetine HCl (Paxil) 10 mg DAILY PO Last administered on 12/24/18 08:43; Admin Dose 10 MG; Start 12/18/18 at 09:30 Zinc Sulfate (Zinc Sulfate) 220 mg DAILY PO Last administered on 12/24/18 08:43; Admin Dose 220 MG; Start 12/18/18 at 09:30 Sevelamer Carbonate (Renvela) 800 mg WITH MEALS PO Last administered on 12/24/18 12:16; Admin Dose 800 MG; Start 12/18/18 at 11:30 Diagnostic Test (Pha) (Accu-Chek) 1 ea 02 XX ; Start 12/19/18 at 02:00 Miscellaneous Information 1 ea NOTE XX ; Start 12/18/18 at 13:00 Glucose (Glutose) 15 gm Q15M PRN PO DECREASED GLUCOSE Last administered on 12/19/18 22:39; Admin Dose 15 GM; Start 12/18/18 at 13:00 Glucose (Glutose) 22.5 gm Q15M PRN PO DECREASED GLUCOSE Last administered on 12/19/18 23:35; Admin Dose 22.5 GM; Start 12/18/18 at 13:00 Dextrose (D50w Syringe) 25 ml Q15M PRN IV DECREASED GLUCOSE; Start 12/18/18 at 13:00 Dextrose (D50w Syringe) 50 ml Q15M PRN IV DECREASED GLUCOSE Last administered on 12/22/18 07:09; Admin Dose 50 ML; Start 12/18/18 at 13:00 Glucagon (Glucagen) 1 mg Q15M PRN IM DECREASED GLUCOSE; Start 12/18/18 at 13:00 Glucose (Glutose) 15 gm Q15M PRN BUCCAL DECREASED GLUCOSE; Start 12/18/18 at 13:00 Epoetin Josias-epbx (Retacrit (Esrd)) 8,000 unit MoWeFr@1700 SC Last administered on 12/23/18 16:05; Admin Dose 8,000 UNIT; Start 12/18/18 at 17:00 Levofloxacin (Levaquin) 500 mg Q48H PO Last administered on 12/24/18 08:43; Admin Dose 500 MG; Start 12/20/18 at 08:00 Povidone Iodine (Povidone-Iodine) 1 applic BID TOP Last administered on 12/24/18 08:44; Admin Dose 1 APPLIC; Start 12/18/18 at 21:00 Sodium Hypochlorite (Dakins Diluted (40)) 1 applic BID TP Last administered on 6/11/19at 08:44; Admin Dose 1 APPLIC; Start 12/18/18 at 21:00 Multi-Ingredient Ointment (Eucerin Cream) 1 applic DAILY TOP Last administered on 12/24/18 08:44; Admin Dose 1 APPLIC; Start 12/19/18 at 10:28 Dextrose/Sodium Chloride 1,000 ml @ 50 mls/hr Q20H IV Last administered on 12/23/18 07:00; Admin Dose 50 MLS/HR; Start 12/21/18 at 13:30 Ondansetron HCl (Zofran Inj) 4 mg Q6H PRN IV NAUSEA AND/OR VOMITING Last adm inistered on 12/23/18 05:05; Admin Dose 4 MG; Start 12/21/18 at 13:30 Amlodipine Besylate (Norvasc) 5 mg DAILY PO Last administered on 12/24/18 08:42; Admin Dose 5 MG; Start 12/23/18 at 09:00 Insulin Glargine (Lantus) 3 units DAILY@2000 SC Last administered on 12/23/18 21:14; Admin Dose 3 UNITS; Start 12/22/18 at 20:00 Lisinopril (Zestril) 40 mg DAILY PO Last administered on 12/24/18 08:43; Admin Dose 40 MG; Start 12/23/18 at 09:00 Metoprolol Tartrate (Lopressor) 50 mg BID PO Last administered on 12/24/18 08:43; Admin Dose 50 MG; Start 12/22/18 at 21:00 Linagliptin (Tradjenta) 5 mg DAILY PO Last administered on 12/24/18 08:43; Admin Dose 5 MG; Start 12/22/18 at 14:30 Bromocriptine Mesylate (Parlodel) 2.5 mg QHS PO Last administered on 12/23/18 20:26; Admin Dose 2.5 MG; Start 12/22/18 at 21:00 Diagnostic Test (Pha) (Accu-Chek) 1 ea 2 HOURS AFTER MEALS XX Last administered on 12/24/18 10:12; Admin Dose 1 EA; Start 12/22/18 at 20:00 Diagnostic Test (Pha) (Accu-Chek) 1 ea AC MEALS XX Last administered on 12/24/18 11:36; Admin Dose 1 EA; Start 12/22/18 at 17:30 Vancomycin HCl 250 ml @ 125 mls/hr Q96H IVPB Last administered on 12/23/18at 11:53; Admin Dose 125 MLS/HR; Start 12/23/18 at 12:00 Allergies: Coded Allergies: clindamycin (Verified Allergy, Severe, 12/18/18) Past Surgical History Past Surgical Hx: other (Status post left upper extremity AV fistula creation 2 years ago, status post bilateral cataract surgery) Social History Alcohol Use: none Smoking Status: Former smoker Drug Use: none ALTAGRACIA TRACEY 11, 2019 12:45
--- NOTE | 2018-12-24 15:10 | PN ---
Date/Time of Note Date/Time of Note DATE: 12/24/18 TIME: 15:07 Assessment/Plan VTE Prophylaxis Risk score (from Ns)>0 risk: 8 SCD applied (from Ns): Yes Pharmacological prophylaxis: other Lines/Catheters IV Catheter Type (from [facility]): Peripheral IV Urinary Cath still in place: No Assessment/Plan Hospital Course Patient is more awake and responsive and communicative today, stable vital signs. Continue to follow-up neurology recommendations. Assessment/Plan -Level of consciousness, patient is more responsive today, CT of the brain is negative for acute stroke. Dr. Alfaro is asked to see patient in neurology consultation. -Right foot ulcer with cellulitis. Continue broad-spectrum antibiotics. Dr. Giles is following in infection disease consultation. Dr. Ford following and podiatry consultation -Hemodialysis dependent end-stage renal disease. Dr. Agustin is following in nephrology consultation. -Diabetes mellitus type 2. Continue Lantus and NovoLog. -Hyperlipidemia, continue statin. -History of stroke, continue Plavix. Further recommendations based on clinical course. Plan of care discussed with Dr. Perez. Result Diagram: 12/24/18 0502 12/24/18 0502 Results 24hrs Laboratory Tests Test 12/23/18 16:03 12/23/18 20:25 12/24/18 05:02 12/24/18 08:23 Bedside Glucose 76 78 235 H White Blood Count 6.0 Red Blood Count 2.86 L Hemoglobin 8.1 L Hematocrit 26.4 L Mean Corpuscular 92.3 Volume Mean Corpuscular 28.3 L Hemoglobin Mean Corpuscular 30.7 L Hemoglobin Concent Red Cell 17.1 H Distribution Width Platelet Count 288 Mean Platelet Volume 10.5 H Immature 0.200 Granulocytes % Neutrophils % 65.8 Lymphocytes % 14.7 L Monocytes % 16.5 H Eosinophils % 1.0 Basophils % 1.8 Nucleated Red Blood 0.0 Cells % Immature 0.010 Granulocytes # Neutrophils # 4.0 Lymphocytes # 0.9 Monocytes # 1.0 H Eosinophils # 0.1 Basophils # 0.1 Nucleated Red Blood 0.0 Cells # Sodium Level 138 Potassium Level 4.4 Chloride Level 100 Carbon Dioxide Level 30 Anion Gap 8 Blood Urea Nitrogen 17 Creatinine 5.34 H Est Glomerular 13 L Filtrat Rate mL/min Glucose Level 209 Calcium Level 8.1 L Test 12/24/18 10:11 12/24/18 11:34 12/24/18 12:14 12/24/18 14:35 Bedside Glucose 197 185 164 114 Exam/Review of Systems Exam Vitals Vital Signs Date Temp Pulse Resp B/P (MAP) Pulse Ox O2 O2 Flow FiO2 Time Delivery Rate 12/24/18 81 12:06 12/24/18 97.9 18 145/72 100 11:29 (96) 12/23/18 Room Air 11:24 Intake and Output 12/23/18 12/23/18 12/24/18 1515:00 23:00 07:00 IntakeIntake Total 250 ml OutputOutput Total 2400 ml 3 ml BalanceBalance -2400 ml 247 ml Exam Constitutional: Awake, nonverbal Respiratory: clear to auscultation Cardiovascular: nl pulses Gastrointestinal: soft, non-tender Musculoskeletal: nl extremities to inspection Extremities: normal pulses, other (Left foot diabetic ulcer, left upper extremity AV fistula) Results Results 24hrs Laboratory Tests Test 12/23/18 16:03 12/23/18 20:25 12/24/18 05:02 12/24/18 08:23 Bedside Glucose 76 78 235 H White Blood Count 6.0 Red Blood Count 2.86 L Hemoglobin 8.1 L Hematocrit 26.4 L Mean Corpuscular 92.3 Volume Mean Corpuscular 28.3 L Hemoglobin Mean Corpuscular 30.7 L Hemoglobin Concent Red Cell 17.1 H Distribution Width Platelet Count 288 Mean Platelet Volume 10.5 H Immature 0.200 Granulocytes % Neutrophils % 65.8 Lymphocytes % 14.7 L Monocytes % 16.5 H Eosinophils % 1.0 Basophils % 1.8 Nucleated Red Blood 0.0 Cells % Immature 0.010 Granulocytes # Neutrophils # 4.0 Lymphocytes # 0.9 Monocytes # 1.0 H Eosinophils # 0.1 Basophils # 0.1 Nucleated Red Blood 0.0 Cells # Sodium Level 138 Potassium Level 4.4 Chloride Level 100 Carbon Dioxide Level 30 Anion Gap 8 Blood Urea Nitrogen 17 Creatinine 5.34 H Est Glomerular 13 L Filtrat Rate mL/min Glucose Level 209 Calcium Level 8.1 L Test 12/24/18 10:11 12/24/18 11:34 12/24/18 12:14 12/24/18 14:35 Bedside Glucose 197 185 164 114 Medications Medication Current Medications Vancomycin HCl (Vanco Iv Per Pharmacy) VANCOMYCIN PER PHARMACY PER PROTOCOL XX ; Start 12/18/18 at 09:30 Hydralazine HCl (Apresoline) 20 mg Q4 PRN IV HIGH BLOOD Last administered on 12/21/18 03:13; Admin Dose 20 MG; Start 12/18/18 at 09:30 Acetaminophen (Tylenol Tab) 650 mg Q4H PRN PO MILD PAIN(1-3)OR ELEVATED TEMP; Start 12/18/18 at 09:30 Acetaminophen/ Hydrocodone Bitart ([place] (5/325)) 1 tab Q4H PRN PO MODERATE PAIN LEVEL 4-6 Last administered on 12/22/18 00:00; Admin Dose 1 TAB; Start 12/18/18 at 09:30 Insulin Aspart (Novolog Insulin Pen) NOVOLOG *MILD* ALGORITHM WITH MEALS BEDTIME SC Last administered on 12/24/18 12:25; Admin Dose 1 UNIT; Start 12/18/18 at 12:00 Aspirin (Halfprin) 81 mg DAILY PO Last administered on 12/24/18 08:42; Admin Dose 81 MG; Start 12/18/18 at 09:30 Atorvastatin Calcium (Lipitor) 80 mg QHS PO Last administered on 12/23/18 20:26; Admin Dose 80 MG; Start 12/18/18 at 21:00 Baclofen (Lioresal) 10 mg TID PO Last administered on 12/24/18 14:37; Admin Dose 10 MG; Start 12/18/18 at 13:00 Clopidogrel Bisulfate (plaVIX) 75 mg DAILY PO Last administered on 12/24/18 08:42; Admin Dose 75 MG; Start 12/18/18 at 09:30 Multivit/Ca Carb/ B Cmplx/FA/Prenat (Amarilis-Christina) 1 tab DAILY PO Last administered on 12/24/18 08:42; Admin Dose 1 TAB; Start 12/18/18 at 09:30 Mirtazapine (Remeron) 15 mg HS PO Last administered on 12/23/18 20:26; Admin Dose 15 MG; Start 12/18/18 at 21:00 Paroxetine HCl (Paxil) 10 mg DAILY PO Last administered on 12/24/18 08:43; Admin Dose 10 MG; Start 12/18/18 at 09:30 Zinc Sulfate (Zinc Sulfate) 220 mg DAILY PO Last administered on 12/24/18 08:43; Admin Dose 220 MG; Start 12/18/18 at 09:30 Sevelamer Carbonate (Renvela) 800 mg WITH MEALS PO Last administered on 12/24/18at 12:16; Admin Dose 800 MG; Start 12/18/18 at 11:30 Diagnostic Test (Pha) (Accu-Chek) 1 ea 02 XX ; Start 12/19/18 at 02:00 Miscellaneous Information 1 ea NOTE XX ; Start 12/18/18 at 13:00 Glucose (Glutose) 15 gm Q15M PRN PO DECREASED GLUCOSE Last administered on 12/19/18at 22:39; Admin Dose 15 GM; Start 12/18/18 at 13:00 Glucose (Glutose) 22.5 gm Q15M PRN PO DECREASED GLUCOSE Last administered on 12/19/18at 23:35; Admin Dose 22.5 GM; Start 12/18/18 at 13:00 Dextrose (D50w Syringe) 25 ml Q15M PRN IV DECREASED GLUCOSE; Start 12/18/18 at 13:00 Dextrose (D50w Syringe) 50 ml Q15M PRN IV DECREASED GLUCOSE Last administered on 12/22/18at 07:09; Admin Dose 50 ML; Start 12/18/18 at 13:00 Glucagon (Glucagen) 1 mg Q15M PRN IM DECREASED GLUCOSE; Start 12/18/18 at 13:00 Glucose (Glutose) 15 gm Q15M PRN BUCCAL DECREASED GLUCOSE; Start 12/18/18 at 13:00 Epoetin Josias-epbx (Retacrit (Esrd)) 8,000 unit MoWeFr@1700 SC Last administered on 12/23/18at 16:05; Admin Dose 8,000 UNIT; Start 12/18/18 at 17:00 Levofloxacin (Levaquin) 500 mg Q48H PO Last administered on 12/24/18at 08:43; Admin Dose 500 MG; Start 12/20/18 at 08:00 Povidone Iodine (Povidone-Iodine) 1 applic BID TOP Last administered on 12/24/18at 08:44; Admin Dose 1 APPLIC; Start 12/18/18 at 21:00 Sodium Hypochlorite (Dakins Diluted (1/40)) 1 applic BID TP Last administered on 12/24/18 08:44; Admin Dose 1 APPLIC; Start 12/18/18 at 21:00 Multi-Ingredient Ointment (Eucerin Cream) 1 applic DAILY TOP Last administered on 12/24/18 08:44; Admin Dose 1 APPLIC; Start 12/19/18 at 10:28 Ondansetron HCl (Zofran Inj) 4 mg Q6H PRN IV NAUSEA AND/OR VOMITING Last administered on 12/23/18 05:05; Admin Dose 4 MG; Start 12/21/18 at 13:30 Amlodipine Besylate (Norvasc) 5 mg DAILY PO Last administered on 12/24/18 08:42; Admin Dose 5 MG; Start 12/23/18 at 09:00 Insulin Glargine (Lantus) 3 units DAILY@2000 SC Last administered on 12/23/18 21:14; Admin Dose 3 UNITS; Start 12/22/18 at 20:00 Lisinopril (Zestril) 40 mg DAILY PO Last administered on 12/24/18 08:43; Admin Dose 40 MG; Start 12/23/18 at 09:00 Metoprolol Tartrate (Lopressor) 50 mg BID PO Last administered on 12/24/18 08:43; Admin Dose 50 MG; Start 12/22/18 at 21:00 Linagliptin (Tradjenta) 5 mg DAILY PO Last administered on 12/24/18 08:43; Admin Dose 5 MG; Start 12/22/18 at 14:30 Bromocriptine Mesylate (Parlodel) 2.5 mg QHS PO Last administered on 12/23/18 20:26; Admin Dose 2.5 MG; Start 12/22/18 at 21:00 Diagnostic Test (Pha) (Accu-Chek) 1 ea 2 HOURS AFTER MEALS XX Last administered on 12/24/18 14:36; Admin Dose 1 EA; Start 12/22/18 at 20:00 Diagnostic Test (Pha) (Accu-Chek) 1 ea AC MEALS XX Last administered on 12/24/18 11:36; Admin Dose 1 EA; Start 12/22/18 at 17:30 Vancomycin HCl 250 ml @ 125 mls/hr Q96H IVPB Last administered on 6/10/19at 11:53; Admin Dose 125 MLS/HR; Start 12/23/18 at 12:00 NEL LARSEN Dec 24, 2018 15:10
--- NOTE | 2018-12-24 17:52 | CONS ---
Assessment/Plan Assessment/Plan Problems: (1) Diabetes mellitus type 2 in nonobese Status: Chronic Comment: Sugar control is quite good on the variety of sensitizing drug therapies. Able to back off on the insulin more expect for him not to have significant hyperglycemia or risk of DKA Consultation Date/Type/Reason Admit Date/Time Dec 18, 2018 at 04:02 Initial Consult Date 12/22/18 Type of Consult Endocrinology Reason for Consultation Diabetes mellitus type 2 Requesting Provider: ADRIANA JUSTICE Date/Time of Note DATE: 12/24/18 TIME: 17:50 24 HR Interval Summary Free Text/Dictation Patient has had a change in his overall mental status and is going for MRI scan of the brain at this time Detailed Summary Endocrine: no complaints Exam/Review of Systems Exam Vitals Vital Signs Date Temp Pulse Resp B/P (MAP) Pulse Ox O2 O2 Flow FiO2 Time Delivery Rate 12/24/18 79 16:04 12/24/18 98.4 18 155/79 100 15:42 (104) 12/23/18 Room Air 11:24 Intake and Output 12/23/18 12/23/18 12/24/18 1515:00 23:00 07:00 IntakeIntake Total 250 ml OutputOutput Total 2400 ml 3 ml BalanceBalance -2400 ml 247 ml Exam gentleman in no adriana distress Respiratory: clear to auscultation, normal air movement Cardiovascular: regular rate and rhythm, nl pulses Results Result Diagram: 12/24/18 0502 12/24/18 0502 Results 24hrs Laboratory Tests Test 12/23/18 20:25 12/24/18 05:02 12/24/18 08:23 12/24/18 10:11 Bedside Glucose 78 235 H 197 White Blood Count 6.0 Red Blood Count 2.86 L Hemoglobin 8.1 L Hematocrit 26.4 L Mean Corpuscular 92.3 Volume Mean Corpuscular 28.3 L Hemoglobin Mean Corpuscular 30.7 L Hemoglobin Concent Red Cell 17.1 H Distribution Width Platelet Count 288 Mean Platelet Volume 10.5 H Immature 0.200 Granulocytes % Neutrophils % 65.8 Lymphocytes % 14.7 L Monocytes % 16.5 H Eosinophils % 1.0 Basophils % 1.8 Nucleated Red Blood 0.0 Cells % Immature 0.010 Granulocytes # Neutrophils # 4.0 Lymphocytes # 0.9 Monocytes # 1.0 H Eosinophils # 0.1 Basophils # 0.1 Nucleated Red Blood 0.0 Cells # Sodium Level 138 Potassium Level 4.4 Chloride Level 100 Carbon Dioxide Level 30 Anion Gap 8 Blood Urea Nitrogen 17 Creatinine 5.34 H Est Glomerular 13 L Filtrat Rate mL/min Glucose Level 209 Calcium Level 8.1 L Test 12/24/18 11:34 12/24/18 12:14 12/24/18 14:35 12/24/18 17:14 Bedside Glucose 185 164 114 78 Medications Medication Current Medications Vancomycin HCl (Vanco Iv Per Pharmacy) VANCOMYCIN PER PHARMACY PER PROTOCOL XX ; Start 12/18/18 at 09:30 Hydralazine HCl (Apresoline) 20 mg Q4 PRN IV HIGH BLOOD Last administered on 12/21/18 03:13; Admin Dose 20 MG; Start 12/18/18 at 09:30 Acetaminophen (Tylenol Tab) 650 mg Q4H PRN PO MILD PAIN(1-3)OR ELEVATED TEMP; Start 12/18/18 at 09:30 Acetaminophen/ Hydrocodone Bitart ([place] (5/325)) 1 tab Q4H PRN PO MODERATE PAIN LEVEL 4-6 Last administered on 12/22/18 00:00; Admin Dose 1 TAB; Start 12/18/18 at 09:30 Insulin Aspart (Novolog Insulin Pen) NOVOLOG *MILD* ALGORITHM WITH MEALS BEDTIME SC Last administered on 12/24/18 12:25; Admin Dose 1 UNIT; Start 12/18/18 at 12:00 Aspirin (Halfprin) 81 mg DAILY PO Last administered on 12/24/18 08:42; Admin Dose 81 MG; Start 12/18/18 at 09:30 Atorvastatin Calcium (Lipitor) 80 mg QHS PO Last administered on 12/23/18 20:26; Admin Dose 80 MG; Start 12/18/18 at 21:00 Baclofen (Lioresal) 10 mg TID PO Last administered on 12/24/18 14:37; Admin Dose 10 MG; Start 12/18/18 at 13:00 Clopidogrel Bisulfate (plaVIX) 75 mg DAILY PO Last administered on 12/24/18 08:42; Admin Dose 75 MG; Start 12/18/18 at 09:30 Multivit/Ca Carb/ B Cmplx/FA/Prenat (Amarilis-Christina) 1 tab DAILY PO Last administered on 12/24/18 08:42; Admin Dose 1 TAB; Start 12/18/18 at 09:30 Mirtazapine (Remeron) 15 mg HS PO Last administered on 12/23/18 20:26; Admin Dose 15 MG; Start 12/18/18 at 21:00 Paroxetine HCl (Paxil) 10 mg DAILY PO Last administered on 12/24/18 08:43; Admin Dose 10 MG; Start 12/18/18 at 09:30 Zinc Sulfate (Zinc Sulfate) 220 mg DAILY PO Last administered on 12/24/18 08:43; Admin Dose 220 MG; Start 12/18/18 at 09:30 Sevelamer Carbonate (Renvela) 800 mg WITH MEALS PO Last administered on 12/24/18 17:18; Admin Dose 800 MG; Start 12/18/18 at 11:30 Diagnostic Test (Pha) (Accu-Chek) 1 ea 02 XX ; Start 12/19/18 at 02:00 Miscellaneous Information 1 ea NOTE XX ; Start 12/18/18 at 13:00 Glucose (Glutose) 15 gm Q15M PRN PO DECREASED GLUCOSE Last administered on 12/19/18 22:39; Admin Dose 15 GM; Start 12/18/18 at 13:00 Glucose (Glutose) 22.5 gm Q15M PRN PO DECREASED GLUCOSE Last administered on 12/19/18 23:35; Admin Dose 22.5 GM; Start 12/18/18 at 13:00 Dextrose (D50w Syringe) 25 ml Q15M PRN IV DECREASED GLUCOSE; Start 12/18/18 at 13:00 Dextrose (D50w Syringe) 50 ml Q15M PRN IV DECREASED GLUCOSE Last administered on 12/22/18 07:09; Admin Dose 50 ML; Start 12/18/18 at 13:00 Glucagon (Glucagen) 1 mg Q15M PRN IM DECREASED GLUCOSE; Start 12/18/18 at 13:00 Glucose (Glutose) 15 gm Q15M PRN BUCCAL DECREASED GLUCOSE; Start 12/18/18 at 13:00 Epoetin Josias-epbx (Retacrit (Esrd)) 8,000 unit MoWeFr@1700 SC Last administered on 12/23/18 16:05; Admin Dose 8,000 UNIT; Start 12/18/18 at 17:00 Levofloxacin (Levaquin) 500 mg Q48H PO Last administered on 12/24/18 08:43; Admin Dose 500 MG; Start 12/20/18 at 08:00 Povidone Iodine (Povidone-Iodine) 1 applic BID TOP Last administered on 12/24/18 08:44; Admin Dose 1 APPLIC; Start 12/18/18 at 21:00 Sodium Hypochlorite (Dakins Diluted ()) 1 applic BID TP Last administered on 12/24/18 08:44; Admin Dose 1 APPLIC; Start 12/18/18 at 21:00 Multi-Ingredient Ointment (Eucerin Cream) 1 applic DAILY TOP Last administered on 12/24/18 08:44; Admin Dose 1 APPLIC; Start 12/19/18 at 10:28 Ondansetron HCl (Zofran Inj) 4 mg Q6H PRN IV NAUSEA AND/OR VOMITING Last administered on 12/23/18 05:05; Admin Dose 4 MG; Start 12/21/18 at 13:30 Amlodipine Besylate (Norvasc) 5 mg DAILY PO Last administered on 12/24/18 08:42; Admin Dose 5 MG; Start 12/23/18 at 09:00 Lisinopril (Zestril) 40 mg DAILY PO Last administered on 12/24/18 08:43; Admin Dose 40 MG; Start 12/23/18 at 09:00 Metoprolol Tartrate (Lopressor) 50 mg BID PO Last administered on 12/24/18 08:43; Admin Dose 50 MG; Start 12/22/18 at 21:00 Linagliptin (Tradjenta) 5 mg DAILY PO Last administered on 12/24/18 08:43; Admin Dose 5 MG; Start 12/22/18 at 14:30 Bromocriptine Mesylate (Parlodel) 2.5 mg QHS PO Last administered on 12/23/18 20:26; Admin Dose 2.5 MG; Start 12/22/18 at 21:00 Diagnostic Test (Pha) (Accu-Chek) 1 ea 2 HOURS AFTER MEALS XX Last adm inistered on 12/24/18 14:36; Admin Dose 1 EA; Start 12/22/18 at 20:00 Diagnostic Test (Pha) (Accu-Chek) 1 ea AC MEALS XX Last administered on 12/24/18at 17:15; Admin Dose 1 EA; Start 12/22/18 at 17:30 Vancomycin HCl 250 ml @ 125 mls/hr Q96H IVPB Last administered on 12/23/18at 11:53; Admin Dose 125 MLS/HR; Start 12/23/18 at 12:00 Insulin Glargine (Lantus) 2 units DAILY@2000 SC ; Start 12/24/18 at 20:00; Status RADHA FERRARO MD Dec 24, 2018 17:52
[2018-12-24] MEDS: ATORVASTATIN 80 MG TAB PO SCH (20:22)
[2018-12-24] MEDS: MIRTAZAPINE 15 MG TAB PO SCH (20:22)
[2018-12-24] MEDS: BROMOCRIPTINE 2.5 MG TAB PO SCH (20:22)
[2018-12-24] MEDS: INSULIN GLARGINE [LANTus] (100 UNITS/ML) SYG SC SCH (20:35)
[2018-12-25] VITALS (24 sets, daily range): BP systolic 134–172; BP diastolic 61–85; PULSE 81–93; RESP 16–20
[2018-12-25] MEDS: ACCU-CHEK XX SCH ×7 (02:00→20:00)
--- NOTE | 2018-12-25 06:39 | EEG ---
EEG NOTE Report Details DATE OF TEST: 12/24/18 HISTORY: The patient is a 63-year-old M who presents with altered mental status. This EEG is requested to evaluate for seizures. SEDATION: None. CONDITIONS OF RECORDING: This EEG was recorded digitally on the [email or web address] machine, using the International 10-20 System of electrodes plus anterior temporals and [place]. STATES SAMPLED: Wakefulness and drowsiness. FINDINGS: During wakefulness, there is a 7 Hz posterior dominant rhythm, which attenuates normally with eye opening. There is a normal [id number] frequency-amplitude gradient. The remainder of the awake background is notable for admixed theta and delta activity. Photic stimulation does not elicit any definite driving responses or epileptiform discharges. Hyperventilation was not performed. The patient became drowsy but did not pass into sleep. No asymmetries, focal abnormalities or epileptiform discharges were seen. IMPRESSION: Abnormal electroencephalogram due to: mild diffuse slowing. COMMENT: The slowing of the background indicates mild, diffuse cortical dysfunction of nonspecific etiology. ALTAGRACIA TRACEY Dec 25, 2018 06:39
[2018-12-25] MEDS: SEVELAMER CARBONATE 800 MG TABLET PO SCH ×3 (07:39→17:29)
[2018-12-25] MEDS: INSULIN ASPART [NOVOLOG] 3 ML PEN SC SCH ×4 (07:39→20:37)
[2018-12-25] MEDS: LINAGLIPTIN 5 MG TABLET PO SCH (08:40)
[2018-12-25] MEDS: MULTIVIT/CA CARB/B CMPLX/FA TAB PO SCH (08:41)
[2018-12-25] MEDS: ZINC SULFATE 220 MG CAP PO SCH (08:41)
[2018-12-25] MEDS: ASPIRIN (EC) 81 MG TAB PO SCH (08:41)
[2018-12-25] MEDS: CLOPIDOGREL 75 MG TAB PO SCH (08:41)
[2018-12-25] MEDS: PAROXETINE 10 MG TAB PO SCH (08:41)
[2018-12-25] MEDS: BACLOFEN 10 MG TAB PO SCH ×3 (08:41→20:16)
[2018-12-25] MEDS: DAKINS 0.0125%(1/40) 473 ML SOLUTION TP SCH ×2 (08:42→20:40)
[2018-12-25] MEDS: EUCERIN 113 GM CR TOP SCH (08:42)
[2018-12-25] MEDS: POVIDONE IODINE 10% 28.4 GM OINT TOP SCH ×2 (08:43→20:40)
[2018-12-25] MEDS: METOPROLOL 50 MG TAB PO SCH ×3 (08:49→20:17)
[2018-12-25] MEDS: AMLODIPINE 5 MG TAB PO SCH ×2 (08:49→13:03)
--- NOTE | 2018-12-25 08:49 | PN ---
DATE: 12/25/2018 SUBJECTIVE: The patient is stable, no events overnight. OBJECTIVE: VITAL SIGNS: Blood pressure is 147/69, pulse 87, respirations 20, temperature 98.3. HEENT: Head is normocephalic. NECK: Supple. HEART: Regular rate. LUNGS: Show diminished breath sounds at the base. ABDOMEN: Soft, nontender to palpation without rebound or guarding. EXTREMITIES: Negative for clubbing, cyanosis, no edema. DERMATOLOGIC: No rashes. MUSCULOSKELETAL: No joint effusion. NEUROLOGIC: No change in exam. MEDICATIONS: Reviewed. LABORATORY DATA: Reviewed. ASSESSMENT AND PLAN: 1. End-stage renal disease. Plan is for hemodialysis today. We will dialyze for 3 hours 2k bath, c alcium 2.5. 2. Hyperkalemia, resolved. 3. Anemia. Monitor hemoglobin and hematocrit levels. Continue Epogen. 4. Mineral bone disorder, monitor calcium and phosphorus levels. 5. Diabetic foot ulcer. Continue to monitor. Follow up with podiatry. 6. Diabetes. Continue current insulin regimen. 7. History of cerebrovascular accident. 8. Encephalopathy, etiology is toxic metabolic. 9. Hypertension. Continue current blood pressure regimen. 10. Dyslipidemia. Continue statin therapy. Dictated By: RUFUS CHERY/NTS Conf#: [id number] DID#: [id number] CC: BLAINE FAIRBANKS DPM; JACKI LARA MD;*EndCC*
[2018-12-25] MEDS: LISINOPRIL 20 MG TAB PO SCH ×2 (08:50→13:02)
--- NOTE | 2018-12-25 12:26 | QN ---
Documentation Comment No c/o. On HD now via L arm AVG which is working well. He is more alert today. AFVSS Bilateral 2nd toe ulcers - R with bone exposed, L looks mostly healed and covered with eschar - awaiting R 2nd toe amputation with Dr. Ford - cleared from my standpoint - will follow postop JUWAN KANG MD Dec 25, 2018 12:25
--- NOTE | 2018-12-25 13:57 | CONS ---
Assessment/Plan Assessment/Plan Problems: (1) Diabetes mellitus type 2 in nonobese Status: Chronic Comment: Blood sugar control is doing well without over control. Please note we have him on a very tiny dosage of insulin combined with an oral sensitizing agent. He will be theoretically possible to add in an agent such as pioglitazone at low-dose and look at getting rid of the insulin. However the dosage of insulin is so small and therefore relatively safe they do not think that this theoretical possibility would lead to any realistic benefits but at least we have that as an option if we do need to make adjustments. (2) Diabetic foot ulcer Status: Acute Comment: As per podiatry Qualifiers: Diabetic foot ulcer location: unspecified part of foot Diabetes mellitus type: type 2 Laterality: unspecified laterality Non-pressure ulcer stage: u nspecified non-pressure ulcer stage Qualified Codes: E11.621 - Type 2 diabetes mellitus with foot ulcer; L97.509 - Non-pressure chronic ulcer of other part of unspecified foot with unspecified severity (3) Hypertension Status: Chronic Comment: Adequate control on the current regimen Qualifiers: Hypertension type: essential hypertension Qualified Codes: I10 - Essential (primary) hypertension (4) Hyperlipidemia Status: Chronic Comment: On full dose statin therapy Qualifiers: Hyperlipidemia type: pure hypercholesterolemia Qualified Codes: E78.00 - Pure hypercholesterolemia, unspecified (5) End-stage renal disease on hemodialysis Status: Chronic Comment: As per nephrology continuation of dialysis (6) Foot osteomyelitis, right Status: Chronic Comment: On antibiotics; awaiting podiatric surgical intervention. 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 Consultation Date/Type/Reason Admit Date/Time Dec 18, 2018 at 04:02 Initial Consult Date 12/22/18 Type of Consult Endocrinology Reason for Consultation Diabetes mellitus type 2 with complications of end-stage renal disease; retinopathy; peripheral vascular disease; peripheral neuropathy; osteomyelitis with a foot infection Requesting Provider: ADRIANA JUSTICE Date/Time of Note DATE: 12/25/18 TIME: 13:51 24 HR Interval Summary Free Text/Dictation Patient reports that he is doing fair. Constitutional: no complaints Detailed Summary Respiratory: no complaints Cardiovascular: no complaints Exam/Review of Systems Exam Vitals Vital Signs Date Temp Pulse Resp B/P (MAP) Pulse Ox O2 O2 Flow FiO2 Time Delivery Rate 12/25/18 87 13:40 12/25/18 98.1 18 172/85 100 Room Air 11:40 (114) Intake and Output 12/24/18 12/24/18 12/25/18 1515:00 23:00 07:00 IntakeIntake Total 520 ml 250 ml OutputOutput Total 2 ml 1 ml BalanceBalance 518 ml 249 ml Constitutional: alert, oriented Respiratory: clear to auscultation, normal air movement Cardiovascular: regular rate and rhythm, nl pulses Results Result Diagram: 12/25/18 0518 12/25/18 0518 Results 24hrs Laboratory Tests Test 12/24/18 14:35 12/24/18 17:14 12/24/18 20:11 12/25/18 05:18 Bedside Glucose 114 78 92 White Blood Count 6.4 Red Blood Count 2.67 L Hemoglobin 7.8 L Hematocrit 24.7 L Mean Corpuscular 92.5 Volume Mean Corpuscular 29.2 Hemoglobin Mean Corpuscular 31.6 L Hemoglobin Concent Red Cell 16.7 H Distribution Width Platelet Count 282 Mean Platelet Volume 10.8 H Immature 0.200 Granulocytes % Neutrophils % 68.6 Lymphocytes % 13.2 L Monocytes % 15.8 H Eosinophils % 1.1 Basophils % 1.1 Nucleated Red Blood 0.0 Cells % Immature 0.010 Granulocytes # Neutrophils # 4.4 Lymphocytes # 0.9 Monocytes # 1.0 H Eosinophils # 0.1 Basophils # 0.1 Nucleated Red Blood 0.0 Cells # Sodium Level 137 Potassium Level 4.7 Chloride Level 99 Carbon Dioxide Level 29 Anion Gap 9 Blood Urea Nitrogen 32 #H Creatinine 7.76 #H Est Glomerular 9 L Filtrat Rate mL/min Glucose Level 132 # Calcium Level 8.2 L Test 12/25/18 07:38 12/25/18 10:18 12/25/18 12:01 Bedside Glucose 140 194 145 Medications Medication Current Medications Vancomycin HCl (Vanco Iv Per Pharmacy) VANCOMYCIN PER PHARMACY PER PROTOCOL XX ; Start 12/18/18 at 09:30 Hydralazine HCl (Apresoline) 20 mg Q4 PRN IV HIGH BLOOD Last administered on 6/8/19at 03:13; Admin Dose 20 MG; Start 12/18/18 at 09:30 Acetaminophen (Tylenol Tab) 650 mg Q4H PRN PO MILD PAIN(1-3)OR ELEVATED TEMP; Start 12/18/18 at 09:30 Acetaminophen/ Hydrocodone Bitart ([place] (5/325)) 1 tab Q4H PRN PO MODERATE PAIN LEVEL 4-6 Last administered on 12/22/18 00:00; Admin Dose 1 TAB; Start 12/18/18 at 09:30 Insulin Aspart (Novolog Insulin Pen) NOVOLOG *MILD* ALGORITHM WITH MEALS BEDTIME SC Last administered on 12/24/18 12:25; Admin Dose 1 UNIT; Start 12/18/18 at 12:00 Aspirin (Halfprin) 81 mg DAILY PO Last administered on 12/25/18 08:41; Admin Dose 81 MG; Start 12/18/18 at 09:30 Atorvastatin Calcium (Lipitor) 80 mg QHS PO Last administered on 12/24/18 20:22; Admin Dose 80 MG; Start 12/18/18 at 21:00 Baclofen (Lioresal) 10 mg TID PO Last administered on 12/25/18 13:00; Admin Dose 10 MG; Start 12/18/18 at 13:00 Clopidogrel Bisulfate (plaVIX) 75 mg DAILY PO Last administered on 12/25/18 08:41; Admin Dose 75 MG; Start 12/18/18 at 09:30 Multivit/Ca Carb/ B Cmplx/FA/Prenat (Amarilis-Christina) 1 tab DAILY PO Last admini stered on 12/25/18 08:41; Admin Dose 1 TAB; Start 12/18/18 at 09:30 Mirtazapine (Remeron) 15 mg HS PO Last administered on 12/24/18 20:22; Admin Dose 15 MG; Start 12/18/18 at 21:00 Paroxetine HCl (Paxil) 10 mg DAILY PO Last administered on 12/25/18 08:41; Admin Dose 10 MG; Start 12/18/18 at 09:30 Zinc Sulfate (Zinc Sulfate) 220 mg DAILY PO Last administered on 12/25/18 08:41; Admin Dose 220 MG; Start 12/18/18 at 09:30 Sevelamer Carbonate (Renvela) 800 mg WITH MEALS PO Last administered on 12:02; Admin Dose 800 MG; Start 12/18/18 at 11:30 Diagnostic Test (Pha) (Accu-Chek) 1 ea 02 XX ; Start 12/19/18 at 02:00 Miscellaneous Information 1 ea NOTE XX ; Start 12/18/18 at 13:00 Glucose (Glutose) 15 gm Q15M PRN PO DECREASED GLUCOSE Last administered on 12/19/18at 22:39; Admin Dose 15 GM; Start 12/18/18 at 13:00 Glucose (Glutose) 22.5 gm Q15M PRN PO DECREASED GLUCOSE Last administered on 12/19/18at 23:35; Admin Dose 22.5 GM; Start 12/18/18 at 13:00 Dextrose (D50w Syringe) 25 ml Q15M PRN IV DECREASED GLUCOSE; Start 12/18/18 at 13:00 Dextrose (D50w Syringe) 50 ml Q15M PRN IV DECREASED GLUCOSE Last administered on 12/22/18at 07:09; Admin Dose 50 ML; Start 12/18/18 at 13:00 Glucagon (Glucagen) 1 mg Q15M PRN IM DECREASED GLUCOSE; Start 12/18/18 at 13:00 Glucose (Glutose) 15 gm Q15M PRN BUCCAL DECREASED GLUCOSE; Start 12/18/18 at 13:00 Epoetin Josias-epbx (Retacrit (Esrd)) 8,000 unit MoWeFr@1700 SC Last administered on 12/23/18at 16:05; Admin Dose 8,000 UNIT; Start 12/18/18 at 17:00 Levofloxacin (Levaquin) 500 mg Q48H PO Last administered on 12/24/18at 08:43; Admin Dose 500 MG; Start 12/20/18 at 08:00 Povidone Iodine (Povidone-Iodine) 1 applic BID TOP Last administered on 12/25/18 08:43; Admin Dose 1 APPLIC; Start 12/18/18 at 21:00 Sodium Hypochlorite (Dakins Diluted (40)) 1 applic BID TP Last administered on 12/25/18 08:42; Admin Dose 1 APPLIC; Start 12/18/18 at 21:00 Multi-Ingredient Ointment (Eucerin Cream) 1 applic DAILY TOP Last administered on 12/25/18 08:42; Admin Dose 1 APPLIC; Start 12/19/18 at 10:28 Ondansetron HCl (Zofran Inj) 4 mg Q6H PRN IV NAUSEA AND/OR VOMITING Last administered on 12/23/18 05:05; Admin Dose 4 MG; Start 12/21/18 at 13:30 Amlodipine Besylate (Norvasc) 5 mg DAILY PO Last administered on 12/25/18 13:03; Admin Dose 5 MG; Start 12/23/18 at 09:00 Lisinopril (Zestril) 40 mg DAILY PO Last administered on 12/25/18 13:02; Admin Dose 40 MG; Start 12/23/18 at 09:00 Metoprolol Tartrate (Lopressor) 50 mg BID PO Last administered on 12/25/18 13:02; Admin Dose 50 MG; Start 12/22/18 at 21:00 Linagliptin (Tradjenta) 5 mg DAILY PO Last administered on 12/25/18 08:40; Admin Dose 5 MG; Start 12/22/18 at 14:30 Bromocriptine Mesylate (Parlodel) 2.5 mg QHS PO Last administered on 12/24/18 20:22; Admin Dose 2.5 MG; Start 12/22/18 at 21:00 Diagnostic Test (Pha) (Accu-Chek) 1 ea 2 HOURS AFTER MEALS XX Last administered on 12/24/18 20:22; Admin Dose 1 EA; Start 12/22/18 at 20:00 Diagnostic Test (Pha) (Accu-Chek) 1 ea AC MEALS XX Last administered on 12/24/18 17:15; Admin Dose 1 EA; Start 12/22/18 at 17:30 Vancomycin HCl 250 ml @ 125 mls/hr Q96H IVPB Last administered on 12/23/18 11:53; Admin Dose 125 MLS/HR; Start 12/23/18 at 12:00 Insulin Glargine (Lantus) 2 units DAILY@2000 SC Last administered on 12/24/18 20:35; Admin Dose 2 UNITS; Start 12/24/18 at 20:00 RADHA HENSON MD Dec 25, 2018 13:57
--- NOTE | 2018-12-25 14:22 | CONS ---
Assessment/Plan Assessment/Plan Hospital Course (Demo Recall) 1200 in HD. Looks comfortable, no fevers Indwelling's: Left upper extremity AV fistula Allergy: Clindamycin Antimicrobials: Levofloxacin, Vanco Physical examination: Well-developed well-nourished elderly -[place] male in who is in no distress. Head atraumatic normocephalic neck is supple chest rise symmetrical breath sounds diminished bases. Heart: S1-S2. Abdomen soft bowel sounds present. Extremities with bilateral lower extremities dressing intact Assessment: 1. Bilateral lower extremities wounds with cellulitis and osteomyelitis 2. End-stage renal disease 3. Diabetes 4. Diabetic neuropathy Plan: Clinically unchanged, continue antibiotics, plan for right 2nd toe amputation Consultation Date/Type/Reason Admit Date/Time Dec 18, 2018 at 04:02 Initial Consult Date 12/18/18 Type of Consult id Requesting Provider: ADRIANA JUSTICE Date/Time of Note DATE: 12/25/18 TIME: 14:22 Exam/Review of Systems Exam Vitals Vital Signs Date Temp Pulse Resp B/P (MAP) Pulse Ox O2 O2 Flow FiO2 Time Delivery Rate 12/25/18 88 13:55 12/25/18 98.1 18 172/85 100 Room Air 11:40 (114) Intake and Output 12/24/18 12/24/18 12/25/18 1515:00 23:00 07:00 IntakeIntake Total 520 ml 250 ml OutputOutput Total 2 ml 1 ml BalanceBalance 518 ml 249 ml Results Result Diagram: 12/25/1818 12/25/18 0518 Results 24hrs Laboratory Tests Test 12/24/18 14:35 12/24/18 17:14 12/24/18 20:11 12/25/18 05:18 Bedside Glucose 114 78 92 White Blood Count 6.4 Red Blood Count 2.67 L Hemoglobin 7.8 L Hematocrit 24.7 L Mean Corpuscular 92.5 Volume Mean Corpuscular 29.2 Hemoglobin Mean Corpuscular 31.6 L Hemoglobin Concent Red Cell 16.7 H Distribution Width Platelet Count 282 Mean Platelet Volume 10.8 H Immature 0.200 Granulocytes % Neutrophils % 68.6 Lymphocytes % 13.2 L Monocytes % 15.8 H Eosinophils % 1.1 Basophils % 1.1 Nucleated Red Blood 0.0 Cells % Immature 0.010 Granulocytes # Neutrophils # 4.4 Lymphocytes # 0.9 Monocytes # 1.0 H Eosinophils # 0.1 Basophils # 0.1 Nucleated Red Blood 0.0 Cells # Sodium Level 137 Potassium Level 4.7 Chloride Level 99 Carbon Dioxide Level 29 Anion Gap 9 Blood Urea Nitrogen 32 #H Creatinine 7.76 #H Est Glomerular 9 L Filtrat Rate mL/min Glucose Level 132 # Calcium Level 8.2 L Test 12/25/18 07:38 12/25/18 10:18 12/25/18 12:01 Bedside Glucose 140 194 145 Medications Medication Current Medications Vancomycin HCl (Vanco Iv Per Pharmacy) VANCOMYCIN PER PHARMACY PER PROTOCOL XX ; Start 12/18/18 at 09:30 Hydralazine HCl (Apresoline) 20 mg Q4 PRN IV HIGH BLOOD Last administered on 12/21/18 03:13; Admin Dose 20 MG; Start 12/18/18 at 09:30 Acetaminophen (Tylenol Tab) 650 mg Q4H PRN PO MILD PAIN(1-3)OR ELEVATED TEMP; Start 12/18/18 at 09:30 Acetaminophen/ Hydrocodone Bitart ([place] (5/325)) 1 tab Q4H PRN PO MODERATE PAIN LEVEL 4-6 Last administered on 12/22/18 00:00; Admin Dose 1 TAB; Start 12/18/18 at 09:30 Insulin Aspart (Novolog Insulin Pen) NOVOLOG *MILD* ALGORITHM WITH MEALS BEDTIME SC Last administered on 12/24/18 12:25; Admin Dose 1 UNIT; Start 12/18/18 at 12:00 Aspirin (Halfprin) 81 mg DAILY PO Last administered on 12/25/18 08:41; Admin Dose 81 MG; Start 12/18/18 at 09:30 Atorvastatin Calcium (Lipitor) 80 mg QHS PO Last administered on 12/24/18 20:22; Admin Dose 80 MG; Start 12/18/18 at 21:00 Baclofen (Lioresal) 10 mg TID PO Last administered on 12/25/18 13:00; Admin Dose 10 MG; Start 12/18/18 at 13:00 Clopidogrel Bisulfate (plaVIX) 75 mg DAILY PO Last administered on 12/25/18 08:41; Admin Dose 75 MG; Start 12/18/18 at 09:30 Multivit/Ca Carb/ B Cmplx/FA/Prenat (Amarilis-Christina) 1 tab DAILY PO Last administered on 12/25/18 08:41; Admin Dose 1 TAB; Start 12/18/18 at 09:30 Mirtazapine (Remeron) 15 mg HS PO Last administered on 12/24/18 20:22; Admin Dose 15 MG; Start 12/18/18 at 21:00 Paroxetine HCl (Paxil) 10 mg DAILY PO Last administered on 12/25/18 08:41; Admin Dose 10 MG; Start 12/18/18 at 09:30 Zinc Sulfate (Zinc Sulfate) 220 mg DAILY PO Last administered on 12/25/18 08:41; Admin Dose 220 MG; Start 12/18/18 at 09:30 Sevelamer Carbonate (Renvela) 800 mg WITH MEALS PO Last administered on 12/25/18 12:02; Admin Dose 800 MG; Start 12/18/18 at 11:30 Diagnostic Test (Pha) (Accu-Chek) 1 ea 02 XX ; Start 12/19/18 at 02:00 Miscellaneous Information 1 ea NOTE XX ; Start 12/18/18 at 13:00 Glucose (Glutose) 15 gm Q15M PRN PO DECREASED GLUCOSE Last administered on 12/19/18 22:39; Admin Dose 15 GM; Start 12/18/18 at 13:00 Glucose (Glutose) 22.5 gm Q15M PRN PO DECREASED GLUCOSE Last administered on 12/19/18 23:35; Admin Dose 22.5 GM; Start 12/18/18 at 13:00 Dextrose (D50w Syringe) 25 ml Q15M PRN IV DECREASED GLUCOSE; Start 12/18/18 at 13:00 Dextrose (D50w Syringe) 50 ml Q15M PRN IV DECREASED GLUCOSE Last administered o n 12/22/18 07:09; Admin Dose 50 ML; Start 12/18/18 at 13:00 Glucagon (Glucagen) 1 mg Q15M PRN IM DECREASED GLUCOSE; Start 12/18/18 at 13:00 Glucose (Glutose) 15 gm Q15M PRN BUCCAL DECREASED GLUCOSE; Start 12/18/18 at 13:00 Epoetin Josias-epbx (Retacrit (Esrd)) 8,000 unit MoWeFr@1700 SC Last administered on 12/23/18 16:05; Admin Dose 8,000 UNIT; Start 12/18/18 at 17:00 Levofloxacin (Levaquin) 500 mg Q48H PO Last administered on 12/24/18 08:43; Admin Dose 500 MG; Start 12/20/18 at 08:00 Povidone Iodine (Povidone-Iodine) 1 applic BID TOP Last administered on 12/25/18 08:43; Admin Dose 1 APPLIC; Start 12/18/18 at 21:00 Sodium Hypochlorite (Dakins Diluted ()) 1 applic BID TP Last administered on 12/25/18 08:42; Admin Dose 1 APPLIC; Start 12/18/18 at 21:00 Multi-Ingredient Ointment (Eucerin Cream) 1 applic DAILY TOP Last administered on 12/25/18 08:42; Admin Dose 1 APPLIC; Start 12/19/18 at 10:28 Ondansetron HCl (Zofran Inj) 4 mg Q6H PRN IV NAUSEA AND/OR VOMITING Last administered on 12/23/18 05:05; Admin Dose 4 MG; Start 12/21/18 at 13:30 Amlodipine Besylate (Norvasc) 5 mg DAILY PO Last administered on 12/25/18 13:03; Admin Dose 5 MG; Start 12/23/18 at 09:00 Lisinopril (Zestril) 40 mg DAILY PO Last administered on 12/25/18 13:02; Admin Dose 40 MG; Start 12/23/18 at 09:00 Metoprolol Tartrate (Lopressor) 50 mg BID PO Last administered on 12/25/18 13:02; Admin Dose 50 MG; Start 12/22/18 at 21:00 Linagliptin (Tradjenta) 5 mg DAILY PO Last administered on 12/25/18 08:40; Admin Dose 5 MG; Start 12/22/18 at 14:30 Bromocriptine Mesylate (Parlodel) 2.5 mg QHS PO Last administered on 12/24/18 20:22; Admin Dose 2.5 MG; Start 12/22/18 at 21:00 Diagnostic Test (Pha) (Accu-Chek) 1 ea 2 HOURS AFTER MEALS XX Last administered on 12/24/18 20:22; Admin Dose 1 EA; Start 12/22/18 at 20:00 Diagnostic Test (Pha) (Accu-Chek) 1 ea AC MEALS XX Last administered on 12/24/18at 17:15; Admin Dose 1 EA; Start 12/22/18 at 17:30 Vancomycin HCl 250 ml @ 125 mls/hr Q96H IVPB Last administered on 12/23/18at 11:53; Admin Dose 125 MLS/HR; Start 12/23/18 at 12:00 Insulin Glargine (Lantus) 2 units DAILY@2000 SC Last administered on 12/24/18at 20:35; Admin Dose 2 UNITS; Start 12/24/18 at 20:00 SARABJIT DILLARD NP Dec 25, 2018 14:22
--- NOTE | 2018-12-25 14:40 | CONS ---
Assessment/Plan Assessment/Plan Hospital Course (Demo Recall) IMPRESSION: 1. Preoperative evaluation prior to possible toe amputation and possible need for further evaluation.-neg trop x 3. NL EF by echo. Ok to proceed with toe amputation under nerve block or MAC at moderate CV risk from cardiac standpoint but have concern for neuological status 2. Hypertension-well controlled 3. History of dyslipidemia. 4. Peripheral arterial disease with nonhealing lower extremity ulcers. 5. Nonhealing lower extremity ulcers. 6. Cellulitis. 7. Diabetes mellitus. 8. Psychiatric disorder. 9. New change in MS-? CVA-head CT 12/20 neg for acute changes. ECG most recent without acute changes. -MS at baseline today Recc: -Now on tele -serial ecg's -Continue BB/CCB and now zestril and follow BP closely and use PRN antihypertensives as necessary -Continue asa/plavix -Continue statin -Continue abx's and f/u cx dta -Continue local wound care -HD as tolerated ongoing today -Neuro eval ongoing now Consultation Date/Type/Reason Admit Date/Time Dec 18, 2018 at 04:02 Initial Consult Date 12/18/18 Type of Consult Cardiology Reason for Consultation Preop/HTN Requesting Provider: ADRIANA JUSTICE Date/Time of Note DATE: 12/25/18 TIME: 14:37 Exam/Review of Systems Vital Signs Vitals Vital Signs Date Temp Pulse Resp B/P (MAP) Pulse Ox O2 O2 Flow FiO2 Time Delivery Rate 12/25/18 88 13:55 12/25/18 98.1 18 172/85 100 Room Air 11:40 (114) Intake and Output 12/24/18 12/24/18 12/25/18 1515:00 23:00 07:00 IntakeIntake Total 520 ml 250 ml OutputOutput Total 2 ml 1 ml BalanceBalance 518 ml 249 ml Exam Exam Review of Systems: CONSTITUTIONAL: No fevers, chills. PULMONARY: No sob CARDIOVASCULAR: No chest pain/palpitations GASTROINTESTINAL: No nausea/vomiting. GENITOURINARY: No hematuria/dysuria. MUSCULOSKELETAL: No myagias/arthalgias. PSYCHIATRIC: The patient denies depression. NEUROLOGIC: MS at baseline today Constitutional: alert Psych: no complaints ENMT: mucosa pink and moist Neck: supple, jvd (9 cm water) Respiratory: diminished breath sounds (at bases/B) Cardiovascular: regular rate and rhythm Gastrointestinal: soft, non-tender Musculoskeletal: muscle weakness (genralized) Extremities: edema (none) Neurological: other (No focal deficits) Labs Result Diagram: 12/25/1818 12/25/18 0518 Results 24hrs Laboratory Tests Test 12/24/18 17:14 12/24/18 20:11 12/25/18 05:18 12/25/18 07:38 Bedside Glucose 78 92 140 White Blood Count 6.4 Red Blood Count 2.67 L Hemoglobin 7.8 L Hematocrit 24.7 L Mean Corpuscular 92.5 Volume Mean Corpuscular 29.2 Hemoglobin Mean Corpuscular 31.6 L Hemoglobin Concent Red Cell 16.7 H Distribution Width Platelet Count 282 Mean Platelet Volume 10.8 H Immature 0.200 Granulocytes % Neutrophils % 68.6 Lymphocytes % 13.2 L Monocytes % 15.8 H Eosinophils % 1.1 Basophils % 1.1 Nucleated Red Blood 0.0 Cells % Immature 0.010 Granulocytes # Neutrophils # 4.4 Lymphocytes # 0.9 Monocytes # 1.0 H Eosinophils # 0.1 Basophils # 0.1 Nucleated Red Blood 0.0 Cells # Sodium Level 137 Potassium Level 4.7 Chloride Level 99 Carbon Dioxide Level 29 Anion Gap 9 Blood Urea Nitrogen 32 #H Creatinine 7.76 #H Est Glomerular 9 L Filtrat Rate mL/min Glucose Level 132 # Calcium Level 8.2 L Test 12/25/18 10:18 12/25/18 12:01 Bedside Glucose 194 145 Medications Medications Current Medications Vancomycin HCl (Vanco Iv Per Pharmacy) VANCOMYCIN PER PHARMACY PER PROTOCOL XX ; Start 12/18/18 at 09:30 Hydralazine HCl (Apresoline) 20 mg Q4 PRN IV HIGH BLOOD Last administered on 12/21/18at 03:13; Admin Dose 20 MG; Start 12/18/18 at 09:30 Acetaminophen (Tylenol Tab) 650 mg Q4H PRN PO MILD PAIN(1-3)OR ELEVATED TEMP; Start 12/18/18 at 09:30 Acetaminophen/ Hydrocodone Bitart ([place] (5/325)) 1 tab Q4H PRN PO MODERATE PAIN LEVEL 4-6 Last administered on 12/22/18at 00:00; Admin Dose 1 TAB; Start 12/18/18 at 09:30 Insulin Aspart (Novolog Insulin Pen) NOVOLOG *MILD* ALGORITHM WITH MEALS BEDTIME SC Last administered on 12/24/18 12:25; Admin Dose 1 UNIT; Start 12/18/18 at 12:00 Aspirin (Halfprin) 81 mg DAILY PO Last administered on 12/25/18 08:41; Admin Dose 81 MG; Start 12/18/18 at 09:30 Atorvastatin Calcium (Lipitor) 80 mg QHS PO Last administered on 12/24/18 20:22; Admin Dose 80 MG; Start 12/18/18 at 21:00 Baclofen (Lioresal) 10 mg TID PO Last administered on 12/25/18 13:00; Admin Dose 10 MG; Start 12/18/18 at 13:00 Clopidogrel Bisulfate (plaVIX) 75 mg DAILY PO Last administered on 12/25/18 08:41; Admin Dose 75 MG; Start 12/18/18 at 09:30 Multivit/Ca Carb/ B Cmplx/FA/Prenat (Amarilis-Christina) 1 tab DAILY PO Last administered on 12/25/18 08:41; Admin Dose 1 TAB; Start 12/18/18 at 09:30 Mirtazapine (Remeron) 15 mg HS PO Last administered on 12/24/18 20:22; Admin Dose 15 MG; Start 12/18/18 at 21:00 Paroxetine HCl (Paxil) 10 mg DAILY PO Last administered on 12/25/18 08:41; Admin Dose 10 MG; Start 12/18/18 at 09:30 Zinc Sulfate (Zinc Sulfate) 220 mg DAILY PO Last administered on 12/25/18 08:41; Admin Dose 220 MG; Start 12/18/18 at 09:30 Sevelamer Carbonate (Renvela) 800 mg WITH MEALS PO Last administered on 12/25/18 12:02; Admin Dose 800 MG; Start 12/18/18 at 11:30 Diagnostic Test (Pha) (Accu-Chek) 1 ea 02 XX ; Start 12/19/18 at 02:00 Miscellaneous Information 1 ea NOTE XX ; Start 12/18/18 at 13:00 Glucose (Glutose) 15 gm Q15M PRN PO DECREASED GLUCOSE Last administered on 12/19/18 22:39; Admin Dose 15 GM; Start 12/18/18 at 13:00 Glucose (Glutose) 22.5 gm Q15M PRN PO DECREASED GLUCOSE Last administered on 12/19/18 23:35; Admin Dose 22.5 GM; Start 12/18/18 at 13:00 Dextrose (D50w Syringe) 25 ml Q15M PRN IV DECREASED GLUCOSE; Start 12/18/18 at 13:00 Dextrose (D50w Syringe) 50 ml Q15M PRN IV DECREASED GLUCOSE Last administered on 12/22/18 07:09; Admin Dose 50 ML; Start 12/18/18 at 13:00 Glucagon (Glucagen) 1 mg Q15M PRN IM DECREASED GLUCOSE; Start 12/18/18 at 13:00 Glucose (Glutose) 15 gm Q15M PRN BUCCAL DECREASED GLUCOSE; Start 12/18/18 at 13: 00 Epoetin Josias-epbx (Retacrit (Esrd)) 8,000 unit MoWeFr@1700 SC Last administered on 12/23/18 16:05; Admin Dose 8,000 UNIT; Start 12/18/18 at 17:00 Levofloxacin (Levaquin) 500 mg Q48H PO Last administered on 12/24/18 08:43; Admin Dose 500 MG; Start 12/20/18 at 08:00 Povidone Iodine (Povidone-Iodine) 1 applic BID TOP Last administered on 12/25/18 08:43; Admin Dose 1 APPLIC; Start 12/18/18 at 21:00 Sodium Hypochlorite (Dakins Diluted (40)) 1 applic BID TP Last administered on 12/25/18 08:42; Admin Dose 1 APPLIC; Start 12/18/18 at 21:00 Multi-Ingredient Ointment (Eucerin Cream) 1 applic DAILY TOP Last administered on 12/25/18 08:42; Admin Dose 1 APPLIC; Start 12/19/18 at 10:28 Ondansetron HCl (Zofran Inj) 4 mg Q6H PRN IV NAUSEA AND/OR VOMITING Last administered on 12/23/18 05:05; Admin Dose 4 MG; Start 12/21/18 at 13:30 Amlodipine Besylate (Norvasc) 5 mg DAILY PO Last administered on 12/25/18 13:03; Admin Dose 5 MG; Start 12/23/18 at 09:00 Lisinopril (Zestril) 40 mg DAILY PO Last administered on 12/25/18 13:02; Admin Dose 40 MG; Start 12/23/18 at 09:00 Metoprolol Tartrate (Lopressor) 50 mg BID PO Last administered on 12/25/18 13:02; Admin Dose 50 MG; Start 12/22/18 at 21:00 Linagliptin (Tradjenta) 5 mg DAILY PO Last administered on 12/25/18 08:40; Admin Dose 5 MG; Start 12/22/18 at 14:30 Bromocriptine Mesylate (Parlodel) 2.5 mg QHS PO Last administered on 12/24/18 20:22; Admin Dose 2.5 MG; Start 12/22/18 at 21:00 Diagnostic Test (Pha) (Accu-Chek) 1 ea 2 HOURS AFTER MEALS XX Last administered on 12/24/18 20:22; Admin Dose 1 EA; Start 12/22/18 at 20:00 Diagnostic Test (Pha) (Accu-Chek) 1 ea AC MEALS XX Last administered on 12/24/18 17:15; Admin Dose 1 EA; Start 12/22/18 at 17:30 Vancomycin HCl 250 ml @ 125 mls/hr Q96H IVPB Last administered on 12/23/18 11:53; Admin Dose 125 MLS/HR; Start 12/23/18 at 12:00 Insulin Glargine (Lantus) 2 units DAILY@2000 SC Last administered on 12/24/18 20:35; Admin Dose 2 UNITS; Start 12/24/18 at 20:00 JUWAN TAYLOR Dec 25, 2018 14:40
--- NOTE | 2018-12-25 15:26 | PN ---
Date/Time of Note Date/Time of Note DATE: 12/25/18 TIME: 15:19 Assessment/Plan VTE Prophylaxis Risk score (from Ns)>0 risk: 8 SCD applied (from Ns): Yes Pharmacological prophylaxis: other Lines/Catheters IV [facility]from [facility] [place] Urinary Cath still in place: No Assessment/Plan Hospital Course Patient is undergoing hemodialysis. Patient is awake alert, able to answer questions appropriately. Assessment/Plan -Level of consciousness, patient is more responsive today, CT of the brain and MRI of the head are negative for acute stroke. Dr. Alfaro is following in neurology consultation. -Right foot ulcer with cellulitis. Continue broad-spectrum antibiotics. Dr. Giles is following in infection disease consultation. Dr. Ford following and podiatry consultation. -Hemodialysis dependent end-stage renal disease. Dr. Agustin is following in nephrology consultation. -Diabetes mellitus type 2. Continue Lantus and NovoLog. -Hyperlipidemia, continue statin. -History of stroke, continue Plavix. Further recommendations based on clinical course. Plan of care discussed with Dr. Perez. Result Diagram: 12/25/1818 12/25/1818 Results 24hrs Laboratory Tests Test 12/24/18 17:14 12/24/18 20:11 12/25/18 05:18 12/25/18 07:38 Bedside Glucose 78 92 140 White Blood Count 6.4 Red Blood Count 2.67 L Hemoglobin 7.8 L Hematocrit 24.7 L Mean Corpuscular 92.5 Volume Mean Corpuscular 29.2 Hemoglobin Mean Corpuscular 31.6 L Hemoglobin Concent Red Cell 16.7 H Distribution Width Platelet Count 282 Mean Platelet Volume 10.8 H Immature 0.200 Granulocytes % Neutrophils % 68.6 Lymphocytes % 13.2 L Monocytes % 15.8 H Eosinophils % 1.1 Basophils % 1.1 Nucleated Red Blood 0.0 Cells % Immature 0.010 Granulocytes # Neutrophils # 4.4 Lymphocytes # 0.9 Monocytes # 1.0 H Eosinophils # 0.1 Basophils # 0.1 Nucleated Red Blood 0.0 Cells # Sodium Level 137 Potassium Level 4.7 Chloride Level 99 Carbon Dioxide Level 29 Anion Gap 9 Blood Urea Nitrogen 32 #H Creatinine 7.76 #H Est Glomerular 9 L Filtrat Rate mL/min Glucose Level 132 # Calcium Level 8.2 L Test 12/25/18 10:18 12/25/18 12:01 Bedside Glucose 194 145 Exam/Review of Systems Exam Vitals Vital Signs Date Temp Pulse Resp B/P (MAP) Pulse Ox O2 O2 Flow FiO2 Time Delivery Rate 12/25/18 88 13:55 12/25/18 98.1 18 172/85 100 Room Air 11:40 (114) Intake and Output 12/24/18 12/24/18 12/25/18 1414:59 22:59 06:59 IntakeIntake Total 520 ml 250 ml OutputOutput Total 2 ml 1 ml BalanceBalance 518 ml 249 ml Exam Constitutional: Awake, nonverbal Respiratory: clear to auscultation Cardiovascular: nl pulses Gastrointestinal: soft, non-tender Musculoskeletal: nl extremities to inspection Extremities: normal pulses, other (Left foot diabetic ulcer, left upper e xtremity AV fistula) Results Results 24hrs Laboratory Tests Test 12/24/18 17:14 12/24/18 20:11 12/25/18 05:18 12/25/18 07:38 Bedside Glucose 78 92 140 White Blood Count 6.4 Red Blood Count 2.67 L Hemoglobin 7.8 L Hematocrit 24.7 L Mean Corpuscular 92.5 Volume Mean Corpuscular 29.2 Hemoglobin Mean Corpuscular 31.6 L Hemoglobin Concent Red Cell 16.7 H Distribution Width Platelet Count 282 Mean Platelet Volume 10.8 H Immature 0.200 Granulocytes % Neutrophils % 68.6 Lymphocytes % 13.2 L Monocytes % 15.8 H Eosinophils % 1.1 Basophils % 1.1 Nucleated Red Blood 0.0 Cells % Immature 0.010 Granulocytes # Neutrophils # 4.4 Lymphocytes # 0.9 Monocytes # 1.0 H Eosinophils # 0.1 Basophils # 0.1 Nucleated Red Blood 0.0 Cells # Sodium Level 137 Potassium Level 4.7 Chloride Level 99 Carbon Dioxide Level 29 Anion Gap 9 Blood Urea Nitrogen 32 #H Creatinine 7.76 #H Est Glomerular 9 L Filtrat Rate mL/min Glucose Level 132 # Calcium Level 8.2 L Test 12/25/18 10:18 12/25/18 12:01 Bedside Glucose 194 145 Medications Medication Current Medications Vancomycin HCl (Vanco Iv Per Pharmacy) VANCOMYCIN PER PHARMACY PER PROTOCOL XX ; Start 12/18/18 at 09:30 Hydralazine HCl (Apresoline) 20 mg Q4 PRN IV HIGH BLOOD Last administered on 12/21/18 03:13; Admin Dose 20 MG; Start 12/18/18 at 09:30 Acetaminophen (Tylenol Tab) 650 mg Q4H PRN PO MILD PAIN(1-3)OR ELEVATED TEMP; Start 12/18/18 at 09:30 Acetaminophen/ Hydrocodone Bitart ([place] (5/325)) 1 tab Q4H PRN PO MODERATE PAIN LEVEL 4-6 Last administered on 12/22/18 00:00; Admin Dose 1 TAB; Start 12/18/18 at 09:30 Insulin Aspart (Novolog Insulin Pen) NOVOLOG *MILD* ALGORITHM WITH MEALS BEDTIME SC Last administered on 12/24/18 12:25; Admin Dose 1 UNIT; Start 12/18/18 at 12:00 Aspirin (Halfprin) 81 mg DAILY PO Last administered on 12/25/18 08:41; Admin Dose 81 MG; Start 12/18/18 at 09:30 Atorvastatin Calcium (Lipitor) 80 mg QHS PO Last administered on 12/24/18 20:22; Admin Dose 80 MG; Start 12/18/18 at 21:00 Baclofen (Lioresal) 10 mg TID PO Last administered on 12/25/18 13:00; Admin Do se 10 MG; Start 12/18/18 at 13:00 Clopidogrel Bisulfate (plaVIX) 75 mg DAILY PO Last administered on 12/25/18 08:41; Admin Dose 75 MG; Start 12/18/18 at 09:30 Multivit/Ca Carb/ B Cmplx/FA/Prenat (Amarilis-Christina) 1 tab DAILY PO Last administered on 12/25/18 08:41; Admin Dose 1 TAB; Start 12/18/18 at 09:30 Mirtazapine (Remeron) 15 mg HS PO Last administered on 12/24/18 20:22; Admin Dose 15 MG; Start 12/18/18 at 21:00 Paroxetine HCl (Paxil) 10 mg DAILY PO Last administered on 12/25/18 08:41; Admin Dose 10 MG; Start 12/18/18 at 09:30 Zinc Sulfate (Zinc Sulfate) 220 mg DAILY PO Last administered on 12/25/18 08:41; Admin Dose 220 MG; Start 12/18/18 at 09:30 Sevelamer Carbonate (Renvela) 800 mg WITH MEALS PO Last administered on 12/25/18at 12:02; Admin Dose 800 MG; Start 12/18/18 at 11:30 Diagnostic Test (Pha) (Accu-Chek) 1 ea 02 XX ; Start 12/19/18 at 02:00 Miscellaneous Information 1 ea NOTE XX ; Start 12/18/18 at 13:00 Glucose (Glutose) 15 gm Q15M PRN PO DECREASED GLUCOSE Last administered on 12/19/18at 22:39; Admin Dose 15 GM; Start 12/18/18 at 13:00 Glucose (Glutose) 22.5 gm Q15M PRN PO DECREASED GLUCOSE Last administered on 12/19/18 23:35; Admin Dose 22.5 GM; Start 12/18/18 at 13:00 Dextrose (D50w Syringe) 25 ml Q15M PRN IV DECREASED GLUCOSE; Start 12/18/18 at 13:00 Dextrose (D50w Syringe) 50 ml Q15M PRN IV DECREASED GLUCOSE Last administered on 12/22/18at 07:09; Admin Dose 50 ML; Start 12/18/18 at 13:00 Glucagon (Glucagen) 1 mg Q15M PRN IM DECREASED GLUCOSE; Start 12/18/18 at 13:00 Glucose (Glutose) 15 gm Q15M PRN BUCCAL DECREASED GLUCOSE; Start 12/18/18 at 13:00 Epoetin Josias-epbx (Retacrit (Esrd)) 8,000 unit MoWeFr@1700 SC Last administered on 12/23/18at 16:05; Admin Dose 8,000 UNIT; Start 12/18/18 at 17:00 Levofloxacin (Levaquin) 500 mg Q48H PO Last administered on 12/24/18 08:43; Admin Dose 500 MG; Start 12/20/18 at 08:00 Povidone Iodine (Povidone-Iodine) 1 applic BID TOP Last administered on 12/25/18 08:43; Admin Dose 1 APPLIC; Start 12/18/18 at 21:00 Sodium Hypochlorite (Dakins Diluted (1/40)) 1 applic BID TP Last administered on 12/25/18 08:42; Admin Dose 1 APPLIC; Start 12/18/18 at 21:00 Multi-Ingredient Ointment (Eucerin Cream) 1 applic DAILY TOP Last administered on 12/25/18 08:42; Admin Dose 1 APPLIC; Start 12/19/18 at 10:28 Ondansetron HCl (Zofran Inj) 4 mg Q6H PRN IV NAUSEA AND/OR VOMITING Last administered on 12/23/18 05:05; Admin Dose 4 MG; Start 12/21/18 at 13:30 Amlodipine Besylate (Norvasc) 5 mg DAILY PO Last administered on 12/25/18 13:03; Admin Dose 5 MG; Start 12/23/18 at 09:00 Lisinopril (Zestril) 40 mg DAILY PO Last administered on 12/25/18 13:02; Admin Dose 40 MG; Start 12/23/18 at 09:00 Metoprolol Tartrate (Lopressor) 50 mg BID PO Last administered on 12/25/18 13:02; Admin Dose 50 MG; Start 12/22/18 at 21:00 Linagliptin (Tradjenta) 5 mg DAILY PO Last administered on 12/25/18 08:40; Admin Dose 5 MG; Start 12/22/18 at 14:30 Bromocriptine Mesylate (Parlodel) 2.5 mg QHS PO Last administered on 12/24/18 20:22; Admin Dose 2.5 MG; Start 12/22/18 at 21:00 Diagnostic Test (Pha) (Accu-Chek) 1 ea 2 HOURS AFTER MEALS XX Last a dministered on 12/24/18 20:22; Admin Dose 1 EA; Start 12/22/18 at 20:00 Diagnostic Test (Pha) (Accu-Chek) 1 ea AC MEALS XX Last administered on 12/24/18 17:15; Admin Dose 1 EA; Start 12/22/18 at 17:30 Vancomycin HCl 250 ml @ 125 mls/hr Q96H IVPB Last administered on 12/23/18 11:53; Admin Dose 125 MLS/HR; Start 12/23/18 at 12:00 Insulin Glargine (Lantus) 2 units DAILY@2000 SC Last administered on 12/24/18 20:35; Admin Dose 2 UNITS; Start 12/24/18 at 20:00 NEL LARSEN Dec 25, 2018 15:26
[2018-12-25] MEDS: EPOETIN ALFA-EPBX (ESRD) 4,000 UNIT/ML VIAL SC SCH (17:01)
[2018-12-25] MEDS: MIRTAZAPINE 15 MG TAB PO SCH (20:16)
[2018-12-25] MEDS: BROMOCRIPTINE 2.5 MG TAB PO SCH (20:16)
[2018-12-25] MEDS: ATORVASTATIN 80 MG TAB PO SCH (20:16)
[2018-12-25] MEDS: INSULIN GLARGINE [LANTus] (100 UNITS/ML) SYG SC SCH (20:37)
[2018-12-26] VITALS (10 sets, daily range): BP systolic 124–143; BP diastolic 58–79; PULSE 61–84; RESP 18–20
[2018-12-26] MEDS: ACCU-CHEK XX SCH ×7 (02:00→20:51)
[2018-12-26] MEDS: INSULIN ASPART [NOVOLOG] 3 ML PEN SC SCH ×4 (08:00→20:52)
[2018-12-26] MEDS: CLOPIDOGREL 75 MG TAB PO SCH (08:44)
[2018-12-26] MEDS: PAROXETINE 10 MG TAB PO SCH (08:44)
[2018-12-26] MEDS: ZINC SULFATE 220 MG CAP PO SCH (08:44)
[2018-12-26] MEDS: ASPIRIN (EC) 81 MG TAB PO SCH (08:44)
[2018-12-26] MEDS: MULTIVIT/CA CARB/B CMPLX/FA TAB PO SCH (08:44)
[2018-12-26] MEDS: LINAGLIPTIN 5 MG TABLET PO SCH (08:44)
[2018-12-26] MEDS: BACLOFEN 10 MG TAB PO SCH ×3 (08:44→20:51)
[2018-12-26] MEDS: LEVOFLOXACIN 500 MG TAB PO SCH (08:44)
[2018-12-26] MEDS: SEVELAMER CARBONATE 800 MG TABLET PO SCH ×3 (08:44→17:31)
[2018-12-26] MEDS: AMLODIPINE 5 MG TAB PO SCH (08:45)
[2018-12-26] MEDS: METOPROLOL 50 MG TAB PO SCH (08:45)
[2018-12-26] MEDS: LISINOPRIL 20 MG TAB PO SCH (08:46)
[2018-12-26] MEDS: EUCERIN 113 GM CR TOP SCH (08:46)
[2018-12-26] MEDS: DAKINS 0.0125%(1/40) 473 ML SOLUTION TP SCH ×2 (08:46→20:53)
[2018-12-26] MEDS: POVIDONE IODINE 10% 28.4 GM OINT TOP SCH ×2 (08:47→20:52)
--- NOTE | 2018-12-26 09:46 | PN ---
DATE: 12/26/2018 SUBJECTIVE: The patient remains stable. No events overnight. No fevers, chills, nausea, vomiting. OBJECTIVE: VITAL SIGNS: Blood pressure is 136/63, respiration 18, pulse 76, temperature 98.4. HEENT: Head is normocephalic. NECK: Supple. HEART: Regular rate. LUNGS: Show diminished breath sounds at the base. ABDOMEN: Soft, nontender to palpation without rebound or guarding. EXTREMITIES: Negative for clubbing, cyanosis, no edema. DERMATOLOGIC: No rashes. MUSCULOSKELETAL: No joint effusion. NEUROLOGIC: No change in exam. MEDICATIONS: The patient's medications have been reviewed. LABORATORY DATA: Has been reviewed. IMAGING STUDIES: Imaging studies have been reviewed. ASSESSMENT AND PLAN: 1. End-stage renal disease. The patient had hemodialysis yesterday, tolerated well. Plan for dialy sis tomorrow. 2. Hyperkalemia, resolved. 3. Anemia. Monitor hemoglobin and hematocrit levels. Continue Epogen. 4. Mineral bone disorder, monitor calcium and phosphorus levels. 5. Diabetic foot ulcer, continue to monitor. Follow up with podiatry. 6. Diabetes. Continue current insulin regimen. 7. History of cerebrovascular accident. 8. Encephalopathy, etiology is toxic metabolic. 9. Hypertension. Continue current blood pressure regimen. 10. Dyslipidemia. Continue current therapy. Dictated By: RUFUS VEGA DO NR/NTS Conf#: [id number] DID#: [id number] CC: BLAINE FAIRBANKS DPM; JACKI LARA MD;*EndCC*
--- NOTE | 2018-12-26 11:39 | CONS ---
Assessment/Plan Assessment/Plan Hospital Course (Demo Recall) No acute events per report Indwelling's: Left upper extremity AV fistula Allergy: Clindamycin Antimicrobials: Levofloxacin, Vanco Physical examination: Well-developed well-nourished elderly -[place]ian male in who is in no distress. Head atraumatic normocephalic neck is supple chest rise symmetrical breath sounds diminished bases. Heart: S1-S2. Abdomen soft bowel sounds present. Extremities with bilateral lower extremities dressing intact Assessment: 1. Bilateral lower extremities wounds with cellulitis and osteomyelitis 2. End-stage renal disease 3. Diabetes 4. Diabetic neuropathy Plan: Clinically unchanged, continue antibiotics, plan for right 2nd toe a mputation Consultation Date/Type/Reason Admit Date/Time Dec 18, 2018 at 04:02 Initial Consult Date 12/18/18 Type of Consult id Requesting Provider: ADRIANA JUSTICE Date/Time of Note DATE: 12/26/18 TIME: 11:39 Exam/Review of Systems Exam Vitals Vital Signs Date Temp Pulse Resp B/P (MAP) Pulse Ox O2 O2 Flow FiO2 Time Delivery Rate 12/26/18 98.2 80 20 138/66 98 High Flow 11:25 (90) Intake and Output 12/25/18 12/25/18 12/26/18 1515:00 23:00 07:00 IntakeIntake Total 500 ml 250 ml OutputOutput Total 2400 ml 1 ml 1 ml BalanceBalance -2400 ml 499 ml 249 ml Results Result Diagram: 12/25/18 0518 12/25/18 0518 Results 24hrs Laboratory Tests Test 12/25/18 12:01 12/25/18 17:31 12/25/18 20:13 12/26/18 02:29 Bedside Glucose 145 196 212 102 Test 12/26/18 08:08 Bedside Glucose 100 Medications Medication Current Medications Vancomycin HCl (Vanco Iv Per Pharmacy) VANCOMYCIN PER PHARMACY PER PROTOCOL XX ; Start 12/18/18 at 09:30 Hydralazine HCl (Apresoline) 20 mg Q4 PRN IV HIGH BLOOD Last administered on 12/21/18at 03:13; Admin Dose 20 MG; Start 12/18/18 at 09:30 Acetaminophen (Tylenol Tab) 650 mg Q4H PRN PO MILD PAIN(1-3)OR ELEVATED TEMP; Start 12/18/18 at 09:30 Acetaminophen/ Hydrocodone Bitart ([place] (5/325)) 1 tab Q4H PRN PO MODERATE PAIN LEVEL 4-6 Last administered on 12/22/18 00:00; Admin Dose 1 TAB; Start 12/18/18 at 09:30 Insulin Aspart (Novolog Insulin Pen) NOVOLOG *MILD* ALGORITHM WITH MEALS BEDTIME SC Last administered on 12/25/18 20:37; Admin Dose 1 UNIT; Start 12/18/18 at 12:00 Aspirin (Halfprin) 81 mg DAILY PO Last administered on 12/26/18 08:44; Admin Dose 81 MG; Start 12/18/18 at 09:30 Atorvastatin Calcium (Lipitor) 80 mg QHS PO Last administered on 12/25/18 20:16; Admin Dose 80 MG; Start 12/18/18 at 21:00 Baclofen (Lioresal) 10 mg TID PO Last administered on 12/26/18 08:44; Admin Dose 10 MG; Start 12/18/18 at 13:00 Clopidogrel Bisulfate (plaVIX) 75 mg DAILY PO Last administered on 12/26/18 08:44; Admin Dose 75 MG; Start 12/18/18 at 09:30 Multivit/Ca Carb/ B Cmplx/FA/Prenat (Amarilis-Christina) 1 tab DAILY PO Last admin istered on 12/26/18 08:44; Admin Dose 1 TAB; Start 12/18/18 at 09:30 Mirtazapine (Remeron) 15 mg HS PO Last administered on 12/25/18 20:16; Admin Dose 15 MG; Start 12/18/18 at 21:00 Paroxetine HCl (Paxil) 10 mg DAILY PO Last administered on 12/26/18 08:44; Admin Dose 10 MG; Start 12/18/18 at 09:30 Zinc Sulfate (Zinc Sulfate) 220 mg DAILY PO Last administered on 12/26/18 08:44; Admin Dose 220 MG; Start 12/18/18 at 09:30 Sevelamer Carbonate (Renvela) 800 mg WITH MEALS PO Last administered on 12/26/18 08:44; Admin Dose 800 MG; Start 12/18/18 at 11:30 Diagnostic Test (Pha) (Accu-Chek) 1 ea 02 XX ; Start 12/19/18 at 02:00 Miscellaneous Information 1 ea NOTE XX ; Start 12/18/18 at 13:00 Glucose (Glutose) 15 gm Q15M PRN PO DECREASED GLUCOSE Last administered on 12/19/18 22:39; Admin Dose 15 GM; Start 12/18/18 at 13:00 Glucose (Glutose) 22.5 gm Q15M PRN PO DECREASED GLUCOSE Last administered on 12/19/18at 23:35; Admin Dose 22.5 GM; Start 12/18/18 at 13:00 Dextrose (D50w Syringe) 25 ml Q15M PRN IV DECREASED GLUCOSE; Start 12/18/18 at 13:00 Dextrose (D50w Syringe) 50 ml Q15M PRN IV DECREASED GLUCOSE Last administered on 12/22/18 07:09; Admin Dose 50 ML; Start 12/18/18 at 13:00 Glucagon (Glucagen) 1 mg Q15M PRN IM DECREASED GLUCOSE; Start 12/18/18 at 13:00 Glucose (Glutose) 15 gm Q15M PRN BUCCAL DECREASED GLUCOSE; Start 12/18/18 at 13:00 Epoetin Josias-epbx (Retacrit (Esrd)) 8,000 unit MoWeFr@1700 SC Last administered on 12/25/18 17:01; Admin Dose 8,000 UNIT; Start 12/18/18 at 17:00 Levofloxacin (Levaquin) 500 mg Q48H PO Last administered on 12/26/18 08:44; Admin Dose 500 MG; Start 12/20/18 at 08:00 Povidone Iodine (Povidone-Iodine) 1 applic BID TOP Last administered on 12/26/18 08:47; Admin Dose 1 APPLIC; Start 12/18/18 at 21:00 Sodium Hypochlorite (Dakins Diluted (140)) 1 applic BID TP Last administered on 12/26/18 08:46; Admin Dose 1 APPLIC; Start 12/18/18 at 21:00 Multi-Ingredient Ointment (Eucerin Cream) 1 applic DAILY TOP Last administered on 12/26/18 08:46; Admin Dose 1 APPLIC; Start 12/19/18 at 10:28 Ondansetron HCl (Zofran Inj) 4 mg Q6H PRN IV NAUSEA AND/OR VOMITING Last administered on 12/23/18 05:05; Admin Dose 4 MG; Start 12/21/18 at 13:30 Amlodipine Besylate (Norvasc) 5 mg DAILY PO Last administered on 12/26/18 08:45; Admin Dose 5 MG; Start 12/23/18 at 09:00 Lisinopril (Zestril) 40 mg DAILY PO Last administered on 12/26/18 08:46; Admin Dose 40 MG; Start 12/23/18 at 09:00 Metoprolol Tartrate (Lopressor) 50 mg BID PO Last administered on 12/26/18 08:45; Admin Dose 50 MG; Start 12/22/18 at 21:00 Linagliptin (Tradjenta) 5 mg DAILY PO Last administered on 12/26/18 08:44; Admin Dose 5 MG; Start 12/22/18 at 14:30 Bromocriptine Mesylate (Parlodel) 2.5 mg QHS PO Last administered on 12/25/18 20:16; Admin Dose 2.5 MG; Start 12/22/18 at 21:00 Diagnostic Test (Pha) (Accu-Chek) 1 ea 2 HOURS AFTER MEALS XX Last administered on 12/26/18 10:11; Admin Dose 1 EA; Start 12/22/18 at 20:00 Diagnostic Test (Pha) (Accu-Chek) 1 ea AC MEALS XX Last administered on 12/26/18 07:00; Admin Dose 1 EA; Start 12/22/18 at 17:30 Vancomycin HCl 250 ml @ 125 mls/hr Q96H IVPB Last administered on 12/23/18 11:53; Admin Dose 125 MLS/HR; Start 12/23/18 at 12:00 Insulin Glargine (Lantus) 2 units DAILY@2000 SC Last administered on 12/25/18 20:37; Admin Dose 2 UNITS; Start 12/24/18 at 20:00 SARABJIT DILLARD NP Dec 26, 2018 11:39
--- NOTE | 2018-12-26 11:47 | PN ---
Date/Time of Note Date/Time of Note DATE: 12/26/18 TIME: 11:43 Assessment/Plan VTE Prophylaxis Risk score (from Ns)>0 risk: 8 SCD applied (from [facility] [place]): Yes Pharmacological prophylaxis: other Lines/Catheters IV Catheter Type (from [facility]): [place] Urinary Cath still in place: No Assessment/Plan Hospital Course Patient remains hemodynamically stable, afebrile, neuro status is at his b aseline. Cleared from internal medicine and cardiology for right second toe amputation podiatry surgery. Assessment/Plan -Level of consciousness, patient is more responsive today, CT of the brain and MRI of the head are negative for acute stroke. Dr. Alfaro is following in neur ology consultation. -Right foot ulcer with cellulitis, right second toe ulcer with osteomyelitis and bone exposure. Continue broad-spectrum antibiotics. Dr. Giles is following in infection disease consultation. Dr. Ford following and podiatry consultation. Plan for a right second toe amputation. -Hemodialysis dependent end-stage renal disease. Dr. Agustin is following in nephrology consultation. -Diabetes mellitus type 2. Continue Lantus and NovoLog. -Hyperlipidemia, continue statin. -History of stroke, continue Plavix. Further recommendations based on clinical course. Plan of care discussed with Dr. Perez. Result Diagram: 12/25/1818 12/25/18 0518 Results 24hrs Laboratory Tests Test 12/25/18 12:01 12/25/18 17:31 12/25/18 20:13 12/26/18 02:29 Bedside Glucose 145 196 212 102 Test 12/26/18 08:08 Bedside Glucose 100 Exam/Review of Systems Exam Vitals Vital Signs Date Temp Pulse Resp B/P (MAP) Pulse Ox O2 O2 Flow FiO2 Time Delivery Rate 12/26/18 98.2 80 20 138/66 98 High Flow 11:25 (90) Intake and Output 12/25/18 12/25/18 12/26/18 1515:00 23:00 07:00 IntakeIntake Total 500 ml 250 ml OutputOutput Total 2400 ml 1 ml 1 ml BalanceBalance -2400 ml 499 ml 249 ml Exam Constitutional: Awake, nonverbal Respiratory: clear to auscultation Cardiovascular: nl pulses Gastrointestinal: soft, non-tender Musculoskeletal: nl extremities to inspection Extremities: normal pulses, other (Left foot diabetic ulcer, left upper extremity AV fistula) Results Results 24hrs Laboratory Tests Test 12/25/18 12:01 12/25/18 17:31 12/25/18 20:13 12/26/18 02:29 Bedside Glucose 145 196 212 102 Test 12/26/18 08:08 Bedside Glucose 100 Medications Medication Current Medications Vancomycin HCl (Vanco Iv Per Pharmacy) VANCOMYCIN PER PHARMACY PER PROTOCOL XX ; Start 12/18/18 at 09:30 Hydralazine HCl (Apresoline) 20 mg Q4 PRN IV HIGH BLOOD Last administered on 03:13; Admin Dose 20 MG; Start 12/18/18 at 09:30 Acetaminophen (Tylenol Tab) 650 mg Q4H PRN PO MILD PAIN(1-3)OR ELEVATED TEMP; Start 12/18/18 at 09:30 Acetaminophen/ Hydrocodone Bitart ([place] (5/325)) 1 tab Q4H PRN PO MODERATE PAIN LEVEL 4-6 Last administered on 12/22/18 00:00; Admin Dose 1 TAB; Start 12/18/18 at 09:30 Insulin Aspart (Novolog Insulin Pen) NOVOLOG *MILD* ALGORITHM WITH MEALS BEDTIME SC Last administered on 12/25/18 20:37; Admin Dose 1 UNIT; Start 12/18/18 at 12:00 Aspirin (Halfprin) 81 mg DAILY PO Last administered on 12/26/18 08:44; Admin Dose 81 MG; Start 12/18/18 at 09:30 Atorvastatin Calcium (Lipitor) 80 mg QHS PO Last administered on 12/25/18 20:16; Admin Dose 80 MG; Start 12/18/18 at 21:00 Baclofen (Lioresal) 10 mg TID PO Last administered on 12/26/18 08:44; Admin Dose 10 MG; Start 12/18/18 at 13:00 Clopidogrel Bisulfate (plaVIX) 75 mg DAILY PO Last administered on 12/26/18 08:44; Admin Dose 75 MG; Start 12/18/18 at 09:30 Multivit/Ca Carb/ B Cmplx/FA/Prenat (Amarilis-Christina) 1 tab DAILY PO Last administered on 12/26/18 08:44; Admin Dose 1 TAB; Start 12/18/18 at 09:30 Mirtazapine (Remeron) 15 mg HS PO Last administered on 12/25/18 20:16; Admin Dose 15 MG; Start 12/18/18 at 21:00 Paroxetine HCl (Paxil) 10 mg DAILY PO Last administered on 12/26/18 08:44; Admin Dose 10 MG; Start 12/18/18 at 09:30 Zinc Sulfate (Zinc Sulfate) 220 mg DAILY PO Last administered on 12/26/18 08:44; Admin Dose 220 MG; Start 12/18/18 at 09:30 Sevelamer Carbonate (Renvela) 800 mg WITH MEALS PO Last administered on 12/26/18 08:44; Admin Dose 800 MG; Start 12/18/18 at 11:30 Diagnostic Test (Pha) (Accu-Chek) 1 ea 02 XX ; Start 12/19/18 at 02:00 Miscellaneous Information 1 ea NOTE XX ; Start 12/18/18 at 13:00 Glucose (Glutose) 15 gm Q15M PRN PO DECREASED GLUCOSE Last administered on 12/19/18 22:39; Admin Dose 15 GM; Start 12/18/18 at 13:00 Glucose (Glutose) 22.5 gm Q15M PRN PO DECREASED GLUCOSE Last administered on 12/19/18 23:35; Admin Dose 22.5 GM; Start 12/18/18 at 13:00 Dextrose (D50w Syringe) 25 ml Q15M PRN IV DECREASED GLUCOSE; Start 12/18/18 at 13:00 Dextrose (D50w Syringe) 50 ml Q15M PRN IV DECREASED GLUCOSE Last administered on 12/22/18 07:09; Admin Dose 50 ML; Start 12/18/18 at 13:00 Glucagon (Glucagen) 1 mg Q15M PRN IM DECREASED GLUCOSE; Start 12/18/18 at 13:00 Glucose (Glutose) 15 gm Q15M PRN BUCCAL DECREASED GLUCOSE; Start 12/18/18 at 13:00 Epoetin Josias-epbx (Retacrit (Esrd)) 8,000 unit MoWeFr@1700 SC Last administered on 12/25/18 17:01; Admin Dose 8,000 UNIT; Start 12/18/18 at 17:00 Levofloxacin (Levaquin) 500 mg Q48H PO Last administered on 12/26/18 08:44; Admin Dose 500 MG; Start 12/20/18 at 08:00 Povidone Iodine (Povidone-Iodine) 1 applic BID TOP Last administered on 12/26/18 08:47; Admin Dose 1 APPLIC; Start 12/18/18 at 21:00 Sodium Hypochlorite (Dakins Diluted (40)) 1 applic BID TP Last administered on 12/26/18 08:46; Admin Dose 1 APPLIC; Start 12/18/18 at 21:00 Multi-Ingredient Ointment (Eucerin Cream) 1 applic DAILY TOP Last administered on 12/26/18 08:46; Admin Dose 1 APPLIC; Start 12/19/18 at 10:28 Ondansetron HCl (Zofran Inj) 4 mg Q6H PRN IV NAUSEA AND/OR VOMITING Last administered on 12/23/18 05:05; Admin Dose 4 MG; Start 12/21/18 at 13:30 Amlodipine Besylate (Norvasc) 5 mg DAILY PO Last administered on 12/26/18 08:45; Admin Dose 5 MG; Start 12/23/18 at 09:00 Lisinopril (Zestril) 40 mg DAILY PO Last administered on 12/26/18 08:46; Admin Dose 40 MG; Start 12/23/18 at 09:00 Metoprolol Tartrate (Lopressor) 50 mg BID PO Last administered on 12/26/18 08:45; Admin Dose 50 MG; Start 12/22/18 at 21:00 Linagliptin (Tradjenta) 5 mg DAILY PO Last administered on 12/26/18 08:44; Admin Dose 5 MG; Start 12/22/18 at 14:30 Bromocriptine Mesylate (Parlodel) 2.5 mg QHS PO Last administered on 12/25/18 20:16; Admin Dose 2.5 MG; Start 12/22/18 at 21:00 Diagnostic Test (Pha) (Accu-Chek) 1 ea 2 HOURS AFTER MEALS XX Last administered on 12/26/18 10:11; Admin Dose 1 EA; Start 12/22/18 at 20:00 Diagnostic Test (Pha) (Accu-Chek) 1 ea AC MEALS XX Last administered on 12/26/18 07:00; Admin Dose 1 EA; Start 12/22/18 at 17:30 Vancomycin HCl 250 ml @ 125 mls/hr Q96H IVPB Last administered on 12/23/18at 11:53; Admin Dose 125 MLS/HR; Start 12/23/18 at 12:00 Insulin Glargine (Lantus) 2 units DAILY@2000 SC Last administered on 12/25/18at 20:37; Admin Dose 2 UNITS; Start 12/24/18 at 20:00 NEL LARSEN Dec 26, 2018 11:47
--- NOTE | 2018-12-26 13:55 | CONS ---
Assessment/Plan Assessment/Plan Hospital Course (Demo Recall) IMPRESSION: 1. Preoperative evaluation prior to possible toe amputation and possible need for further evaluation.-neg trop x 3. NL EF by echo. Ok to proceed with toe amputation under nerve block or MAC at moderate CV risk from cardiac standpoint but have concern for neuological status 2. Hypertension-well controlled 3. History of dyslipidemia. 4. Peripheral arterial disease with nonhealing lower extremity ulcers. 5. Nonhealing lower extremity ulcers. 6. Cellulitis. 7. Diabetes mellitus. 8. Psychiatric disorder. 9. New change in MS-? CVA-head CT 12/20 neg for acute changes. ECG most recent without acute changes. -MS at baseline today Recc: -Now on tele -serial ecg's -Continue BB/CCB and now zestril and follow BP closely and use PRN antihypertensives as necessary -Continue asa/plavix -Continue statin -Continue abx's and f/u cx dta -Continue local wound care -HD as tolerated ongoing today -Neuro eval ongoing now Consultation Date/Type/Reason Admit Date/Time Dec 18, 2018 at 04:02 Initial Consult Date 12/18/18 Type of Consult Cardiology Reason for Consultation Preop Requesting Provider: ADRIANA JUSTICE Date/Time of Note DATE: 12/26/18 TIME: 13:54 Exam/Review of Systems Vital Signs Vitals Vital Signs Date Temp Pulse Resp B/P (MAP) Pulse Ox O2 O2 Flow FiO2 Time Delivery Rate 12/26/18 98.2 80 20 138/66 98 High Flow 11:25 (90) Intake and Output 12/25/18 12/25/18 12/26/18 1515:00 23:00 07:00 IntakeIntake Total 500 ml 250 ml OutputOutput Total 2400 ml 1 ml 1 ml BalanceBalance -2400 ml 499 ml 249 ml Exam Exam Review of Systems: CONSTITUTIONAL: No fevers, chills. PULMONARY: No sob CARDIOVASCULAR: No chest pain/palpitations GASTROINTESTINAL: No nausea/vomiting. GENITOURINARY: No hematuria/dysuria. MUSCULOSKELETAL: No myagias/arthalgias. PSYCHIATRIC: The patient denies depression. NEUROLOGIC: lethargic, confusion Constitutional: alert Psych: confusion Head: normocephalic ENMT: mucosa pink and moist Neck: supple, jvd (9 cm water) Respiratory: diminished breath sounds (at bases/B) Cardiovascular: regular rate and rhythm Gastrointestinal: soft, non-tender Musculoskeletal: muscle weakness (generalized) Extremities: edema (trace/B with skin breakdown) Neurological: confused (?), lethargic Labs Result Diagram: 12/25/1851712/25/18517 Results 24hrs Laboratory Tests Test 12/25/18 17:31 12/25/18 20:13 12/26/18 02:29 12/26/18 08:08 Bedside Glucose 196 212 102 100 Test 12/26/18 10:12 12/26/18 11:43 Bedside Glucose 246 H 212 Medications Medications Current Medications Vancomycin HCl (Vanco Iv Per Pharmacy) VANCOMYCIN PER PHARMACY PER PROTOCOL XX ; Start 12/18/18 at 09:30 Hydralazine HCl (Apresoline) 20 mg Q4 PRN IV HIGH BLOOD Last administered on 12/21/18 03:13; Admin Dose 20 MG; Start 12/18/18 at 09:30 Acetaminophen (Tylenol Tab) 650 mg Q4H PRN PO MILD PAIN(1-3)OR ELEVATED TEMP; Start 12/18/18 at 09:30 Acetaminophen/ Hydrocodone Bitart ([place] (5/325)) 1 tab Q4H PRN PO MODERATE PAIN LEVEL 4-6 Last administered on 12/22/18 00:00; Admin Dose 1 TAB; Start 12/18/18 at 09:30 Insulin Aspart (Novolog Insulin Pen) NOVOLOG *MILD* ALGORITHM WITH MEALS BEDTIME SC Last administered on 12/26/18 11:58; Admin Dose 2 UNIT; Start 12/18/18 at 12:00 Aspirin (Halfprin) 81 mg DAILY PO Last administered on 12/26/18 08:44; Admin Dose 81 MG; Start 12/18/18 at 09:30 Atorvastatin Calcium (Lipitor) 80 mg QHS PO Last administered on 12/25/18 20:16; Admin Dose 80 MG; Start 12/18/18 at 21:00 Baclofen (Lioresal) 10 mg TID PO Last administered on 12/26/18 12:00; Admin Dose 10 MG; Start 12/18/18 at 13:00 Clopidogrel Bisulfate (plaVIX) 75 mg DAILY PO Last administered on 12/26/18 08:44; Admin Dose 75 MG; Start 12/18/18 at 09:30 Multivit/Ca Carb/ B Cmplx/FA/Prenat (Amarilis-Christina) 1 tab DAILY PO Last administered on 12/26/18 08:44; Admin Dose 1 TAB; Start 12/18/18 at 09:30 Mirtazapine (Remeron) 15 mg HS PO Last administered on 12/25/18 20:16; Admin Dose 15 MG; Start 12/18/18 at 21:00 Paroxetine HCl (Paxil) 10 mg DAILY PO Last administered on 12/26/18 08:44; Admin Dose 10 MG; Start 12/18/18 at 09:30 Zinc Sulfate (Zinc Sulfate) 220 mg DAILY PO Last administered on 12/26/18 08:44; Admin Dose 220 MG; Start 12/18/18 at 09:30 Sevelamer Carbonate (Renvela) 800 mg WITH MEALS PO Last administered on 12/26/18 11:46; Admin Dose 800 MG; Start 12/18/18 at 11:30 Diagnostic Test (Pha) (Accu-Chek) 1 ea 02 XX ; Start 12/19/18 at 02:00 Miscellaneous Information 1 ea NOTE XX ; Start 12/18/18 at 13:00 Glucose (Glutose) 15 gm Q15M PRN PO DECREASED GLUCOSE Last administered on 12/19/18at 22:39; Admin Dose 15 GM; Start 12/18/18 at 13:00 Glucose (Glutose) 22.5 gm Q15M PRN PO DECREASED GLUCOSE Last administered on 12/19/18at 23:35; Admin Dose 22.5 GM; Start 12/18/18 at 13:00 Dextrose (D50w Syringe) 25 ml Q15M PRN IV DECREASED GLUCOSE; Start 12/18/18 at 13:00 Dextrose (D50w Syringe) 50 ml Q15M PRN IV DECREASED GLUCOSE Last administered on 12/22/18 07:09; Admin Dose 50 ML; Start 12/18/18 at 13:00 Glucagon (Glucagen) 1 mg Q15M PRN IM DECREASED GLUCOSE; Start 12/18/18 at 13:00 Glucose (Glutose) 15 gm Q15M PRN BUCCAL DECREASED GLUCOSE; Start 12/18/18 at 13:00 Epoetin Josias-epbx (Retacrit (Esrd)) 8,000 unit MoWeFr@1700 SC Last administered on 12/25/18 17:01; Admin Dose 8,000 UNIT; Start 12/18/18 at 17:00 Levofloxacin (Levaquin) 500 mg Q48H PO Last administered on 12/26/18 08:44; Admin Dose 500 MG; Start 12/20/18 at 08:00 Povidone Iodine (Povidone-Iodine) 1 applic BID TOP Last administered on 12/26/18 08:47; Admin Dose 1 APPLIC; Start 12/18/18 at 21:00 Sodium Hypochlorite (Dakins Diluted ()) 1 applic BID TP Last administered on 12/26/18 08:46; Admin Dose 1 APPLIC; Start 12/18/18 at 21:00 Multi-Ingredient Ointment (Eucerin Cream) 1 applic DAILY TOP Last administered on 12/26/18 08:46; Admin Dose 1 APPLIC; Start 12/19/18 at 10:28 Ondansetron HCl (Zofran Inj) 4 mg Q6H PRN IV NAUSEA AND/OR VOMITING Last administered on 12/23/18 05:05; Admin Dose 4 MG; Start 12/21/18 at 13:30 Amlodipine Besylate (Norvasc) 5 mg DAILY PO Last administered on 12/26/18 08:45; Admin Dose 5 MG; Start 12/23/18 at 09:00 Lisinopril (Zestril) 40 mg DAILY PO Last administered on 12/26/18 08:46; Admin Dose 40 MG; Start 12/23/18 at 09:00 Metoprolol Tartrate (Lopressor) 50 mg BID PO Last administered on 12/26/18 08:45; Admin Dose 50 MG; Start 12/22/18 at 21:00 Linagliptin (Tradjenta) 5 mg DAILY PO Last administered on 12/26/18 08:44; Admin Dose 5 MG; Start 12/22/18 at 14:30 Bromocriptine Mesylate (Parlodel) 2.5 mg QHS PO Last administered on 12/25/18 20:16; Admin Dose 2.5 MG; Start 12/22/18 at 21:00 Diagnostic Test (Pha) (Accu-Chek) 1 ea 2 HOURS AFTER MEALS XX Last administered on 12/26/18 10:11; Admin Dose 1 EA; Start 12/22/18 at 20:00 Diagnostic Test (Pha) (Accu-Chek) 1 ea AC MEALS XX Last administered on 12/26/18 11:44; Admin Dose 1 EA; Start 12/22/18 at 17:30 Vancomycin HCl 250 ml @ 125 mls/hr Q96H IVPB Last administered on 12/23/18 11:53; Admin Dose 125 MLS/HR; Start 12/23/18 at 12:00 Insulin Glargine (Lantus) 2 units DAILY@2000 SC Last administered on 12/25/18 20:37; Admin Dose 2 UNITS; Start 12/24/18 at 20:00 JUWAN TAYLOR Dec 26, 2018 13:55
--- NOTE | 2018-12-26 18:25 | CONS ---
Assessment/Plan Assessment/Plan Problems: (1) Diabetes mellitus type 2 in nonobese Status: Chronic Comment: Adequate glycemic control. 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 Status: Chronic Comment: Awaiting surgery by podiatry Qualifiers: Diabetic foot ulcer location: toe Non-pressure ulcer stage: with bone involvement without evidence of necrosis Qualified Codes: E11.621 - Type 2 diabetes mellitus with foot ulcer; L97.516 - Non-pressure chronic ulcer of other part of right foot with bone involvement without evidence of necrosis (4) Foot osteomyelitis, right Status: Chronic Comment: Awaiting surgery Qualifiers: Osteomyelitis type: subacute Qualified Codes: M86.271 - Subacute osteomyelitis, right ankle and foot (5) 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 Secondary risk factor control CC: JUWAN TAYLOR; BLAINE FAIRBANKS DPM; RUFUS VEGA DO ; Consultation Date/Type/Reason Admit Date/Time Dec 18, 2018 at 04:02 Initial Consult Date 12/22/18 Type of Consult Endocrinology Reason for Consultation Diabetes mellitus type 2; end-stage renal disease; hypertension; diabetic foot ulcer with osteomyelitis Requesting Provider: ADRIANA JUSTICE Date/Time of Note DATE: 12/26/18 TIME: 18:22 24 HR Interval Summary Free Text/Dictation No acute changes and patient without complaints Detailed Summary Endocrine: no complaints Exam/Review of Systems Exam Vitals Vital Signs Date Temp Pulse Resp B/P (MAP) Pulse Ox O2 O2 Flow FiO2 Time Delivery Rate 12/26/18 78 16:00 12/26/18 98.5 18 135/79 100 Room Air 15:26 (97) Intake and Output 12/25/18 12/25/18 12/26/18 1414:59 22:59 06:59 IntakeIntake Total 500 ml 250 ml OutputOutput Total 2400 ml 1 ml 1 ml BalanceBalance -2400 ml 499 ml 249 ml Exam No change in exam Results Result Diagram: 12/25/18 0518 12/25/18 0518 Results 24hrs Laboratory Tests Test 12/25/18 20:13 12/26/18 02:29 12/26/18 08:08 12/26/18 10:12 Bedside Glucose 212 102 100 246 H Test 12/26/18 11:43 12/26/18 14:17 12/26/18 17:24 Bedside Glucose 212 145 152 Medications Medication Current Medications Vancomycin HCl (Vanco Iv Per Pharmacy) VANCOMYCIN PER PHARMACY PER PROTOCOL XX ; Start 12/18/18 at 09:30 Hydralazine HCl (Apresoline) 20 mg Q4 PRN IV HIGH BLOOD Last administered on 12/21/18 03:13; Admin Dose 20 MG; Start 12/18/18 at 09:30 Acetaminophen (Tylenol Tab) 650 mg Q4H PRN PO MILD PAIN(1-3)OR ELEVATED TEMP; Start 12/18/18 at 09:30 Acetaminophen/ Hydrocodone Bitart ([place] (5/325)) 1 tab Q4H PRN PO MODERATE PAIN LEVEL 4-6 Last administered on 12/22/18 00:00; Admin Dose 1 TAB; Start 12/18/18 at 09:30 Insulin Aspart (Novolog Insulin Pen) NOVOLOG *MILD* ALGORITHM WITH MEALS BEDTIME SC Last administered on 12/26/18 17:28; Admin Dose 1 UNIT; Start at 12:00 Aspirin (Halfprin) 81 mg DAILY PO Last administered on 12/26/18 08:44; Admin Dose 81 MG; Start 12/18/18 at 09:30 Atorvastatin Calcium (Lipitor) 80 mg QHS PO Last administered on 12/25/18 20:16; Admin Dose 80 MG; Start 12/18/18 at 21:00 Baclofen (Lioresal) 10 mg TID PO Last administered on 12/26/18 12:00; Admin Dose 10 MG; Start 12/18/18 at 13:00 Clopidogrel Bisulfate (plaVIX) 75 mg DAILY PO Last administered on 12/26/18 08:44; Admin Dose 75 MG; Start 12/18/18 at 09:30 Multivit/Ca Carb/ B Cmplx/FA/Prenat (Amarilis-Christina) 1 tab DAILY PO Last administered on 12/26/18 08:44; Admin Dose 1 TAB; Start 12/18/18 at 09:30 Mirtazapine (Remeron) 15 mg HS PO Last administered on 6/12/19at 20:16; Admin Dose 15 MG; Start 12/18/18 at 21:00 Paroxetine HCl (Paxil) 10 mg DAILY PO Last administered on 12/26/18 08:44; Admin Dose 10 MG; Start 12/18/18 at 09:30 Zinc Sulfate (Zinc Sulfate) 220 mg DAILY PO Last administered on 12/26/18 08:44; Admin Dose 220 MG; Start 12/18/18 at 09:30 Sevelamer Carbonate (Renvela) 800 mg WITH MEALS PO Last administered on 12/26/18 17:31; Admin Dose 800 MG; Start 12/18/18 at 11:30 Diagnostic Test (Pha) (Accu-Chek) 1 ea 02 XX ; Start 12/19/18 at 02:00 Miscellaneous Information 1 ea NOTE XX ; Start 12/18/18 at 13:00 Glucose (Glutose) 15 gm Q15M PRN PO DECREASED GLUCOSE Last administered on 12/19/18at 22:39; Admin Dose 15 GM; Start 12/18/18 at 13:00 Glucose (Glutose) 22.5 gm Q15M PRN PO DECREASED GLUCOSE Last administered on 12/19/18at 23:35; Admin Dose 22.5 GM; Start 12/18/18 at 13:00 Dextrose (D50w Syringe) 25 ml Q15M PRN IV DECREASED GLUCOSE; Start 12/18/18 at 13:00 Dextrose (D50w Syringe) 50 ml Q15M PRN IV DECREASED GLUCOSE Last administered on 12/22/18 07:09; Admin Dose 50 ML; Start 12/18/18 at 13:00 Glucagon (Glucagen) 1 mg Q15M PRN IM DECREASED GLUCOSE; Start 12/18/18 at 13:00 Glucose (Glutose) 15 gm Q15M PRN BUCCAL DECREASED GLUCOSE; Start 12/18/18 at 13:00 Epoetin Josias-epbx (Retacrit (Esrd)) 8,000 unit MoWeFr@1700 SC Last administered on 12/25/18 17:01; Admin Dose 8,000 UNIT; Start 12/18/18 at 17:00 Levofloxacin (Levaquin) 500 mg Q48H PO Last administered on 12/26/18 08:44; Admin Dose 500 MG; Start 12/20/18 at 08:00 Povidone Iodine (Povidone-Iodine) 1 applic BID TOP Last administered on 12/26/18 08:47; Admin Dose 1 APPLIC; Start 12/18/18 at 21:00 Sodium Hypochlorite (Dakins Diluted ()) 1 applic BID TP Last administered on 12/26/18 08:46; Admin Dose 1 APPLIC; Start 12/18/18 at 21:00 Multi-Ingredient Ointment (Eucerin Cream) 1 applic DAILY TOP Last administered on 12/26/18 08:46; Admin Dose 1 APPLIC; Start 12/19/18 at 10:28 Ondansetron HCl (Zofran Inj) 4 mg Q6H PRN IV NAUSEA AND/OR VOMITING Last administered on 12/23/18 05:05; Admin Dose 4 MG; Start 12/21/18 at 13:30 Amlodipine Besylate (Norvasc) 5 mg DAILY PO Last administered on 12/26/18 08:45; Admin Dose 5 MG; Start 12/23/18 at 09:00 Lisinopril (Zestril) 40 mg DAILY PO Last administered on 12/26/18 08:46; Admin Dose 40 MG; Start 12/23/18 at 09:00 Metoprolol Tartrate (Lopressor) 50 mg BID PO Last administered on 12/26/18 08:45; Admin Dose 50 MG; Start 12/22/18 at 21:00 Linagliptin (Tradjenta) 5 mg DAILY PO Last administered on 12/26/18 08:44; Admin Dose 5 MG; Start 12/22/18 at 14:30 Bromocriptine Mesylate (Parlodel) 2.5 mg QHS PO Last administered on 12/25/18 20:16; Admin Dose 2.5 MG; Start 12/22/18 at 21:00 Diagnostic Test (Pha) (Accu-Chek) 1 ea 2 HOURS AFTER MEALS XX Last administered on 12/26/18 14:18; Admin Dose 1 EA; Start 12/22/18 at 20:00 Diagnostic Test (Pha) (Accu-Chek) 1 ea AC MEALS XX Last administered on 12/26/18 17:25; Admin Dose 1 EA; Start 12/22/18 at 17:30 Vancomycin HCl 250 ml @ 125 mls/hr Q96H IVPB Last administered on 12/23/18at 11:53; Admin Dose 125 MLS/HR; Start 12/23/18 at 12:00 Insulin Glargine (Lantus) 2 units DAILY@2000 SC Last administered on 12/25/18at 20:37; Admin Dose 2 UNITS; Start 12/24/18 at 20:00 RADHA HENSON MD Dec 26, 2018 18:25
[2018-12-26] MEDS: ATORVASTATIN 80 MG TAB PO SCH (20:51)
[2018-12-26] MEDS: MIRTAZAPINE 15 MG TAB PO SCH (20:52)
[2018-12-26] MEDS: BROMOCRIPTINE 2.5 MG TAB PO SCH (20:53)
[2018-12-26] MEDS: INSULIN GLARGINE [LANTus] (100 UNITS/ML) SYG SC SCH (20:56)
[2018-12-26] MEDS: METOPROLOL 100 MG TAB PO SCH (20:58)
[2018-12-27] VITALS (25 sets, daily range): BP systolic 112–173; BP diastolic 56–85; PULSE 69–87; RESP 18–19
[2018-12-27] MEDS: ACCU-CHEK XX SCH ×7 (02:00→20:20)
--- NOTE | 2018-12-27 03:48 | PN ---
Date/Time of Note Date/Time of Note DATE: 12/27/18 TIME: 03:48 Assessment/Plan VTE Prophylaxis Risk score (from Nsg)>0 risk: 6 SCD applied (from Nsg): Yes Lines/Catheters IV Catheter Type (from Nrsg): Saline Lock Urinary Cath still in place: No Assessment/Plan Assessment/Plan -Gram-positive cocci in clusters bacteremia, continue antibiotics per ID. Dr. Giles is following in infection disease consultation. -S/p sepsis due to abdominal wall abscess. -Abdominal wall cellulitis/abscess, G-tube DC'd. -Sacral wound, continue wound care per wound care recommendations. -Right buttock abscess, status post I&D by Dr. Carlisle on 12/04/18. Continue wound care per surgical recommendations. -G-tube leak on admission, G-tube DC'd. Patient status post G-tube placement. Dr. Bush is following in gastroenterology consultation. -Hyperkalemia and acute kidney injury, continue IV fluids. Dr. King is following in nephrology consultation. -Ventilator dependent respiratory failure with tracheostomy. -Tachycardia, resolved. is following in cardiology consultation. -Pulmonary fibrosis -COPD -Diabetes mellitus, continue Lantus and NovoLog -Diabetes insipidus, continue desmopressin -Dislocation of the glenohumeral joint,s/p reduced with manipulation by Dr Arango, orthopedic surgery. Continue shoulder immobilizer for the right shoulder for least for about 3 weeks to prevent immediate recurrent dislocations. Further recommendations based on clinical course. Plan of care discussed with Dr. Perez. Result Diagram: 12/25/1851712/25/1818 Results 24hrs Laboratory Tests Test 12/26/18 08:08 12/26/18 10:12 12/26/18 11:43 12/26/18 14:17 Bedside Glucose 100 246 H 212 145 Test 12/26/18 17:24 12/26/18 20:33 Bedside Glucose 152 166 Subjective 24 Hr Interval Summary Free Text/Dictation alert/ awake nad Exam/Review of Systems Exam Vitals Vital Signs Date Temp Pulse Resp B/P (MAP) Pulse Ox O2 O2 Flow FiO2 Time Delivery Rate 12/27/18 82 00:00 12/27/18 98.1 19 145/67 98 Room Air 00:00 (93) Intake and Output 12/26/18 12/26/18 12/27/18 1515:00 23:00 07:00 IntakeIntake Total 980 ml BalanceBalance 980 ml Results Results 24hrs Laboratory Tests Test 12/26/18 08:08 12/26/18 10:12 12/26/18 11:43 12/26/18 14:17 Bedside Glucose 100 246 H 212 145 Test 12/26/18 17:24 12/26/18 20:33 Bedside Glucose 152 166 Medications Medication Current Medications Vancomycin HCl (Vanco Iv Per Pharmacy) VANCOMYCIN PER PHARMACY PER PROTOCOL XX ; Start 12/18/18 at 09:30 Hydralazine HCl (Apresoline) 20 mg Q4 PRN IV HIGH BLOOD Last administered on 12/21/18 03:13; Admin Dose 20 MG; Start 12/18/18 at 09:30 Acetaminophen (Tylenol Tab) 650 mg Q4H PRN PO MILD PAIN(1-3)OR ELEVATED TEMP; Start 12/18/18 at 09:30 Acetaminophen/ Hydrocodone Bitart ([place] (5/325)) 1 tab Q4H PRN PO MODERATE PAIN LEVEL 4-6 Last administered on 12/22/18 00:00; Admin Dose 1 TAB; Start 12/18/18 at 09:30 Insulin Aspart (Novolog Insulin Pen) NOVOLOG *MILD* ALGORITHM WITH MEALS BEDTI ME SC Last administered on 12/26/18 17:28; Admin Dose 1 UNIT; Start 12/18/18 at 12:00 Aspirin (Halfprin) 81 mg DAILY PO Last administered on 12/26/18 08:44; Admin Dose 81 MG; Start 12/18/18 at 09:30 Atorvastatin Calcium (Lipitor) 80 mg QHS PO Last administered on 12/26/18 20:51; Admin Dose 80 MG; Start 12/18/18 at 21:00 Baclofen (Lioresal) 10 mg TID PO Last administered on 12/26/18 20:51; Admin Dose 10 MG; Start 12/18/18 at 13:00 Clopidogrel Bisulfate (plaVIX) 75 mg DAILY PO Last administered on 12/26/18 08:44; Admin Dose 75 MG; Start 12/18/18 at 09:30 Multivit/Ca Carb/ B Cmplx/FA/Prenat (Amarilis-Christina) 1 tab DAILY PO Last administered on 12/26/18 08:44; Admin Dose 1 TAB; Start 12/18/18 at 09:30 Mirtazapine (Remeron) 15 mg HS PO Last administered on 12/26/18 20:52; Admin Dose 15 MG; Start 12/18/18 at 21:00 Paroxetine HCl (Paxil) 10 mg DAILY PO Last administered on 12/26/18 08:44; Ad min Dose 10 MG; Start 12/18/18 at 09:30 Zinc Sulfate (Zinc Sulfate) 220 mg DAILY PO Last administered on 12/26/18 08:44; Admin Dose 220 MG; Start 12/18/18 at 09:30 Sevelamer Carbonate (Renvela) 800 mg WITH MEALS PO Last administered on 12/26/18 17:31; Admin Dose 800 MG; Start 12/18/18 at 11:30 Diagnostic Test (Pha) (Accu-Chek) 1 ea 02 XX ; Start 12/19/18 at 02:00 Miscellaneous Information 1 ea NOTE XX ; Start 12/18/18 at 13:00 Glucose (Glutose) 15 gm Q15M PRN PO DECREASED GLUCOSE Last administered on 12/19/18 22:39; Admin Dose 15 GM; Start 12/18/18 at 13:00 Glucose (Glutose) 22.5 gm Q15M PRN PO DECREASED GLUCOSE Last administered on 12/19/18 23:35; Admin Dose 22.5 GM; Start 12/18/18 at 13:00 Dextrose (D50w Syringe) 25 ml Q15M PRN IV DECREASED GLUCOSE; Start 12/18/18 at 13:00 Dextrose (D50w Syringe) 50 ml Q15M PRN IV DECREASED GLUCOSE Last administered on 12/22/18 07:09; Admin Dose 50 ML; Start 12/18/18 at 13:00 Glucagon (Glucagen) 1 mg Q15M PRN IM DECREASED GLUCOSE; Start 12/18/18 at 13:00 Glucose (Glutose) 15 gm Q15M PRN BUCCAL DECREASED GLUCOSE; Start 12/18/18 at 13:00 Epoetin Josias-epbx (Retacrit (Esrd)) 8,000 unit MoWeFr@1700 SC Last administered on 12/25/18 17:01; Admin Dose 8,000 UNIT; Start 12/18/18 at 17:00 Levofloxacin (Levaquin) 500 mg Q48H PO Last administered on 12/26/18 08:44; Admin Dose 500 MG; Start 12/20/18 at 08:00 Povidone Iodine (Povidone-Iodine) 1 applic BID TOP Last administered on 12/26/18 20:52; Admin Dose 1 APPLIC; Start 12/18/18 at 21:00 Sodium Hypochlorite (Dakins Diluted ()) 1 applic BID TP Last administered on 12/26/18 20:53; Admin Dose 1 APPLIC; Start 12/18/18 at 21:00 Multi-Ingredient Ointment (Eucerin Cream) 1 applic DAILY TOP Last administered on 12/26/18 08:46; Admin Dose 1 APPLIC; Start 12/19/18 at 10:28 Ondansetron HCl (Zofran Inj) 4 mg Q6H PRN IV NAUSEA AND/OR VOMITING Last administered on 12/23/18 05:05; Admin Dose 4 MG; Start 12/21/18 at 13:30 Amlodipine Besylate (Norvasc) 5 mg DAILY PO Last administered on 12/26/18 0 8:45; Admin Dose 5 MG; Start 12/23/18 at 09:00 Lisinopril (Zestril) 40 mg DAILY PO Last administered on 12/26/18 08:46; Admin Dose 40 MG; Start 12/23/18 at 09:00 Linagliptin (Tradjenta) 5 mg DAILY PO Last administered on 12/26/18 08:44; Admin Dose 5 MG; Start 12/22/18 at 14:30 Bromocriptine Mesylate (Parlodel) 2.5 mg QHS PO Last administered on 12/26/18 20:53; Admin Dose 2.5 MG; Start 12/22/18 at 21:00 Diagnostic Test (Pha) (Accu-Chek) 1 ea 2 HOURS AFTER MEALS XX Last administered on 12/26/18 20:51; Admin Dose 1 EA; Start 12/22/18 at 20:00 Diagnostic Test (Pha) (Accu-Chek) 1 ea AC MEALS XX Last administered on 12/26/18 17:25; Admin Dose 1 EA; Start 12/22/18 at 17:30 Vancomycin HCl 250 ml @ 125 mls/hr Q96H IVPB Last administered on 12/23/18at 11:53; Admin Dose 125 MLS/HR; Start 12/23/18 at 12:00 Insulin Glargine (Lantus) 2 units DAILY@2000 SC Last administered on 12/26/18at 20:56; Admin Dose 2 UNITS; Start 12/24/18 at 20:00 Metoprolol Tartrate (Lopressor) 100 mg BID PO Last administered on 12/26/18at 20:58; Admin Dose 100 MG; Start 12/26/18 at 21:00 ADRIANA JUSTICE Dec 27, 2018 03:48
[2018-12-27] MEDS: INSULIN ASPART [NOVOLOG] 3 ML PEN SC SCH ×4 (07:57→20:26)
[2018-12-27] MEDS: SEVELAMER CARBONATE 800 MG TABLET PO SCH ×3 (08:14→17:41)
--- NOTE | 2018-12-27 08:50 | PN ---
DATE: 12/27/2018 SUBJECTIVE: The patient is stable, no events overnight. OBJECTIVE: VITAL SIGNS: Blood pressure is 131/74, respirations 18, pulse 75, temperature 98.4. HEENT: Head is normocephalic. NECK: Supple. HEART: Regular rate. LUNGS: Show diminished breath sounds at the base. ABDOMEN: Soft, nontender to palpation. No rebound or guarding. EXTREMITIES: Negative for clubbing, cyanosis, no edema. DERMATOLOGIC: No rashes. MUSCULOSKELETAL: No joint effusion. NEUROLOGIC: No change in exam. MEDICATIONS: Reviewed. LABORATORY DATA: Reviewed. ASSESSMENT AND PLAN: 1. End-stage renal disease. Plan is for hemodialysis today. We will dialyze for 3 hours 3k bath, c alcium 2.5. 2. Hyperkalemia, resolved. Continue dialysis on low potassium bath. 3. Anemia. Continue to monitor hemoglobin and hematocrit levels. Continue Epogen. 4. Mineral bone disorder, monitor calcium and phosphorus levels. 5. Diabetic foot ulcer. Continue wound care. Follow up with podiatry. 6. Diabetes. Continue current insulin regimen. 7. History of cerebrovascular accident. Continue medical management. 8. Encephalopathy, etiology is toxic metabolic, improving. 9. Hypertension. Continue current blood pressure regimen. 10. Dyslipidemia. Continue statin therapy. Dictated By: RUFUS VEGA DO NR/NTS Conf#: [id number] DID#: [id number] CC: JACKI LARA MD; BLAINE FAIRBANKS DPM;*EndCC*
[2018-12-27] MEDS: BACLOFEN 10 MG TAB PO SCH ×4 (09:00→20:20)
[2018-12-27] MEDS: ZINC SULFATE 220 MG CAP PO SCH (11:58)
[2018-12-27] MEDS: AMLODIPINE 5 MG TAB PO SCH (11:59)
[2018-12-27] MEDS: CLOPIDOGREL 75 MG TAB PO SCH (11:59)
[2018-12-27] MEDS: ASPIRIN (EC) 81 MG TAB PO SCH (11:59)
[2018-12-27] MEDS: LISINOPRIL 20 MG TAB PO SCH (12:00)
[2018-12-27] MEDS: METOPROLOL 100 MG TAB PO SCH ×2 (12:00→20:21)
[2018-12-27] MEDS: LINAGLIPTIN 5 MG TABLET PO SCH (12:00)
[2018-12-27] MEDS: POVIDONE IODINE 10% 28.4 GM OINT TOP SCH ×2 (12:00→21:00)
[2018-12-27] MEDS: MULTIVIT/CA CARB/B CMPLX/FA TAB PO SCH (12:01)
[2018-12-27] MEDS: PAROXETINE 10 MG TAB PO SCH (12:01)
[2018-12-27] MEDS: EUCERIN 113 GM CR TOP SCH (12:02)
[2018-12-27] MEDS: DAKINS 0.0125%(1/40) 473 ML SOLUTION TP SCH ×2 (12:03→20:25)
[2018-12-27] MEDS: VANCOMYCIN 1 GM 250 ML IVPB SCH (12:03)
--- NOTE | 2018-12-27 12:57 | CONS ---
Assessment/Plan Assessment/Plan Hospital Course (Demo Recall) No acute events over night, looks comfortable, no fevers Indwelling's: Left upper extremity AV fistula Allergy: Clindamycin Antimicrobials: Levofloxacin, Vanco Physical examination: Well-developed well-nourished elderly -French male in who is in no distress. Head atraumatic normocephalic neck is supple chest rise symmetrical breath sounds diminished bases. Heart: S1-S2. Abdomen soft bowel sounds present. Extremities with bilateral lower extremities dressing intact Assessment: 1. Bilateral lower extremities wounds with cellulitis and osteomyelitis 2. End-stage renal disease 3. Diabetes 4. Diabetic neuropathy Plan: Clinically stable, continue antibiotics, HD per renal, podiatry rec- s==>plan for right 2nd toe amputation Consultation Date/Type/Reason Admit Date/Time Dec 18, 2018 at 04:02 Initial Consult Date 12/18/18 Type of Consult id Requesting Provider: ADRIANA JUSTICE Date/Time of Note DATE: 12/27/18 TIME: 12:56 Exam/Review of Systems Exam Vitals Vital Signs Date Temp Pulse Resp B/P (MAP) Pulse Ox O2 O2 Flow FiO2 Time Delivery Rate 12/27/18 79 12:07 12/27/18 98.7 18 152/63 98 11:18 (92) 12/27/18 Room Air 07:40 Intake and Output 12/26/18 12/26/18 12/27/18 1515:00 23:00 07:00 IntakeIntake Total 980 ml 550 ml BalanceBalance 980 ml 550 ml Results Result Diagram: 12/25/1818 12/25/18 0518 Results 24hrs Laboratory Tests Test 12/26/18 14:17 12/26/18 17:24 12/26/18 20:33 12/27/18 07:55 Bedside Glucose 145 152 166 129 Test 12/27/18 10:07 12/27/18 11:56 Bedside Glucose 117 102 Medications Medication Current Medications Vancomycin HCl (Vanco Iv Per Pharmacy) VANCOMYCIN PER PHARMACY PER PROTOCOL XX ; Start 12/18/18 at 09:30 Hydralazine HCl (Apresoline) 20 mg Q4 PRN IV HIGH BLOOD Last administered on 12/21/18at 03:13; Admin Dose 20 MG; Start 12/18/18 at 09:30 Acetaminophen (Tylenol Tab) 650 mg Q4H PRN PO MILD PAIN(1-3)OR ELEVATED TEMP; Start 12/18/18 at 09:30 Acetaminophen/ Hydrocodone Bitart ([place] (5/325)) 1 tab Q4H PRN PO MODERATE PAIN LEVEL 4-6 Last administered on 12/22/18 00:00; Admin Dose 1 TAB; Start 12/18/18 at 09:30 Insulin Aspart (Novolog Insulin Pen) NOVOLOG *MILD* ALGORITHM WITH MEALS BEDTIME SC Last administered on 12/26/18 17:28; Admin Dose 1 UNIT; Start 12/18/18 at 12:00 Aspirin (Halfprin) 81 mg DAILY PO Last administered on 12/27/18 11:59; Admin Dose 81 MG; Start 12/18/18 at 09:30 Atorvastatin Calcium (Lipitor) 80 mg QHS PO Last administered on 12/26/18 20:51; Admin Dose 80 MG; Start 12/18/18 at 21:00 Baclofen (Lioresal) 10 mg TID PO Last administered on 12/27/18 12:05; Admin Dose 10 MG; Start 12/18/18 at 13:00 Clopidogrel Bisulfate (plaVIX) 75 mg DAILY PO Last administered on 12/27/18 11:59; Admin Dose 75 MG; Start 12/18/18 at 09:30 Multivit/Ca Carb/ B Cmplx/FA/Prenat (Amarilis-Christina) 1 tab DAILY PO Last administered on 12/27/18 12:01; Admin Dose 1 TAB; Start 12/18/18 at 09:30 Mirtazapine (Remeron) 15 mg HS PO Last administered on 12/26/18 20:52; Admin Dose 15 MG; Start 12/18/18 at 21:00 Paroxetine HCl (Paxil) 10 mg DAILY PO Last administered on 12/27/18 12:01; Admin Dose 10 MG; Start 12/18/18 at 09:30 Zinc Sulfate (Zinc Sulfate) 220 mg DAILY PO Last administered on 12/27/18 11:58; Admin Dose 220 MG; Start 12/18/18 at 09:30 Sevelamer Carbonate (Renvela) 800 mg WITH MEALS PO Last administered on 12/27/18 11:59; Admin Dose 800 MG; Start 12/18/18 at 11:30 Diagnostic Test (Pha) (Accu-Chek) 1 ea 02 XX ; Start 12/19/18 at 02:00 Miscellaneous Information 1 ea NOTE XX ; Start 12/18/18 at 13:00 Glucose (Glutose) 15 gm Q15M PRN PO DECREASED GLUCOSE Last administered on 12/19/18at 22:39; Admin Dose 15 GM; Start 12/18/18 at 13:00 Glucose (Glutose) 22.5 gm Q15M PRN PO DECREASED GLUCOSE Last administered on 12/19/18at 23:35; Admin Dose 22.5 GM; Start 12/18/18 at 13:00 Dextrose (D50w Syringe) 25 ml Q15M PRN IV DECREASED GLUCOSE; Start 12/18/18 at 13:00 Dextrose (D50w Syringe) 50 ml Q15M PRN IV DECREASED GLUCOSE Last administered on 12/22/18at 07:09; Admin Dose 50 ML; Start 12/18/18 at 13:00 Glucagon (Glucagen) 1 mg Q15M PRN IM DECREASED GLUCOSE; Start 12/18/18 at 13:00 Glucose (Glutose) 15 gm Q15M PRN BUCCAL DECREASED GLUCOSE; Start 12/18/18 at 13:00 Epoetin Josias-epbx (Retacrit (Esrd)) 8,000 unit MoWeFr@1700 SC Last administered on 12/25/18at 17:01; Admin Dose 8,000 UNIT; Start 12/18/18 at 17:00 Levofloxacin (Levaquin) 500 mg Q48H PO Last administered on 12/26/18at 08:44; Admin Dose 500 MG; Start 12/20/18 at 08:00 Povidone Iodine (Povidone-Iodine) 1 applic BID TOP Last administered on 12/27/18 12:00; Admin Dose 1 APPLIC; Start 12/18/18 at 21:00 Sodium Hypochlorite (Dakins Diluted (1/40)) 1 applic BID TP Last administered on 12/27/18 12:03; Admin Dose 1 APPLIC; Start 12/18/18 at 21:00 Multi-Ingredient Ointment (Eucerin Cream) 1 applic DAILY TOP Last administered on 12/27/18 12:02; Admin Dose 1 APPLIC; Start 12/19/18 at 10:28 Ondansetron HCl (Zofran Inj) 4 mg Q6H PRN IV NAUSEA AND/OR VOMITING Last administered on 12/23/18 05:05; Admin Dose 4 MG; Start 12/21/18 at 13:30 Amlodipine Besylate (Norvasc) 5 mg DAILY PO Last administered on 12/27/18 11:59; Admin Dose 5 MG; Start 12/23/18 at 09:00 Lisinopril (Zestril) 40 mg DAILY PO Last administered on 12/27/18 12:00; Admin Dose 40 MG; Start 12/23/18 at 09:00 Linagliptin (Tradjenta) 5 mg DAILY PO Last administered on 12/27/18 12:00; Admin Dose 5 MG; Start 12/22/18 at 14:30 Bromocriptine Mesylate (Parlodel) 2.5 mg QHS PO Last administered on 12/26/18 20:53; Admin Dose 2.5 MG; Start 12/22/18 at 21:00 Diagnostic Test (Pha) (Accu-Chek) 1 ea 2 HOURS AFTER MEALS XX Last administered on 12/27/18 10:30; Admin Dose 1 EA; Start 12/22/18 at 20:00 Diagnostic Test (Pha) (Accu-Chek) 1 ea AC MEALS XX Last administered on 12/27/18 12:03; Admin Dose 1 EA; Start 12/22/18 at 17:30 Vancomycin HCl 250 ml @ 125 mls/hr Q96H IVPB Last administered on 12/27/18 12:03; Admin Dose 125 MLS/HR; Start 12/23/18 at 12:00 Insulin Glargine (Lantus) 2 units DAILY@2000 SC Last administered on 12/26/18 20:56; Admin Dose 2 UNITS; Start 12/24/18 at 20:00 Metoprolol Tartrate (Lopressor) 100 mg BID PO Last administered on 12/27/18 12:00; Admin Dose 100 MG; Start 12/26/18 at 21:00 SARABJIT DILLARD NP Dec 27, 2018 12:57
--- NOTE | 2018-12-27 14:03 | CONS ---
Assessment/Plan Assessment/Plan Hospital Course (Demo Recall) IMPRESSION: 1. Preoperative evaluation prior to possible toe amputation and possible need for further evaluation.-neg trop x 3. NL EF by echo. Ok to proceed with toe amputation under nerve block or MAC at moderate CV risk from cardiac standpoint but have concern for neuological status 2. Hypertension-well controlled 3. History of dyslipidemia. 4. Peripheral arterial disease with nonhealing lower extremity ulcers. 5. Nonhealing lower extremity ulcers. 6. Cellulitis. 7. Diabetes mellitus. 8. Psychiatric disorder. 9. New change in MS-? CVA-head CT 12/20 neg for acute changes. ECG most recent without acute changes. -MS at baseline today Recc: -Now on tele -serial ecg's -Continue BB/CCB and now zestril and follow BP closely and use PRN antihypertensives as necessary -Continue asa/plavix -Continue statin -Continue abx's and f/u cx dta -Continue local wound care -HD as tolerated ongoing today -Neuro eval ongoing now -awaiting podiatric surgery Consultation Date/Type/Reason Admit Date/Time Dec 18, 2018 at 04:02 Initial Consult Date 12/18/18 Type of Consult Cardiology Reason for Consultation Preop Requesting Provider: ADRIANA JUSTICE Date/Time of Note DATE: 12/27/18 TIME: 14:00 Exam/Review of Systems Vital Signs Vitals Vital Signs Date Temp Pulse Resp B/P (MAP) Pulse Ox O2 O2 Flow FiO2 Time Delivery Rate 12/27/18 79 12:07 12/27/18 98.7 18 152/63 98 11:18 (92) 12/27/18 Room Air 07:40 Intake and Output 12/26/18 12/26/18 12/27/18 1515:00 23:00 07:00 IntakeIntake Total 980 ml 550 ml BalanceBalance 980 ml 550 ml Exam Exam Review of Systems: CONSTITUTIONAL: No fevers, chills. PULMONARY: No sob CARDIOVASCULAR: No chest pain/palpitations GASTROINTESTINAL: No nausea/vomiting. GENITOURINARY: No hematuria/dysuria. MUSCULOSKELETAL: No myagias/arthalgias. PSYCHIATRIC: The patient denies depression. NEUROLOGIC: No weakness. lethargic Constitutional: alert Psych: no complaints, confusion (?) ENMT: mucosa pink and moist Respiratory: clear to auscultation Cardiovascular: regular rate and rhythm Gastrointestinal: soft, non-tender Musculoskeletal: muscle tone (normal) Extremities: edema (none) Neurological: other (NO focal deficits) Labs Result Diagram: 12/25/1851712/25/18517 Results 24hrs Laboratory Tests Test 12/26/18 14:17 12/26/18 17:24 12/26/18 20:33 12/27/18 07:55 Bedside Glucose 145 152 166 129 Test 12/27/18 10:07 12/27/18 11:56 Bedside Glucose 117 102 Medications Medications Current Medications Vancomycin HCl (Vanco Iv Per Pharmacy) VANCOMYCIN PER PHARMACY PER PROTOCOL XX ; Start 12/18/18 at 09:30 Hydralazine HCl (Apresoline) 20 mg Q4 PRN IV HIGH BLOOD Last administered on 12/21/18 03:13; Admin Dose 20 MG; Start 12/18/18 at 09:30 Acetaminophen (Tylenol Tab) 650 mg Q4H PRN PO MILD PAIN(1-3)OR ELEVATED TEMP; Start 12/18/18 at 09:30 Acetaminophen/ Hydrocodone Bitart ([place] (5/325)) 1 tab Q4H PRN PO MODERATE PAIN LEVEL 4-6 Last administered on 12/22/18 00:00; Admin Dose 1 TAB; Start 12/18/18 at 09:30 Insulin Aspart (Novolog Insulin Pen) NOVOLOG *MILD* ALGORITHM WITH MEALS BEDTIME SC Last administered on 12/26/18 17:28; Admin Dose 1 UNIT; Start 12/18/18 at 12:00 Aspirin (Halfprin) 81 mg DAILY PO Last administered on 12/27/18 11:59; Admin Dose 81 MG; Start 12/18/18 at 09:30 Atorvastatin Calcium (Lipitor) 80 mg QHS PO Last administered on 12/26/18 20:51; Admin Dose 80 MG; Start 12/18/18 at 21:00 Baclofen (Lioresal) 10 mg TID PO Last administered on 12/27/18 12:05; Admin Dose 10 MG; Start 12/18/18 at 13:00 Clopidogrel Bisulfate (plaVIX) 75 mg DAILY PO Last administered on 12/27/18 11:59; Admin Dose 75 MG; Start 12/18/18 at 09:30 Multivit/Ca Carb/ B Cmplx/FA/Prenat (Amarilis-Christina) 1 tab DAILY PO Last adm inistered on 12/27/18 12:01; Admin Dose 1 TAB; Start 12/18/18 at 09:30 Mirtazapine (Remeron) 15 mg HS PO Last administered on 12/26/18 20:52; Admin Dose 15 MG; Start 12/18/18 at 21:00 Paroxetine HCl (Paxil) 10 mg DAILY PO Last administered on 12/27/18 12:01; Admin Dose 10 MG; Start 12/18/18 at 09:30 Zinc Sulfate (Zinc Sulfate) 220 mg DAILY PO Last administered on 12/27/18 11:58; Admin Dose 220 MG; Start 12/18/18 at 09:30 Sevelamer Carbonate (Renvela) 800 mg WITH MEALS PO Last administered on 12/27/18 11:59; Admin Dose 800 MG; Start 12/18/18 at 11:30 Diagnostic Test (Pha) (Accu-Chek) 1 ea 02 XX ; Start 12/19/18 at 02:00 Miscellaneous Information 1 ea NOTE XX ; Start 12/18/18 at 13:00 Glucose (Glutose) 15 gm Q15M PRN PO DECREASED GLUCOSE Last administered on 12/19/18 22:39; Admin Dose 15 GM; Start 12/18/18 at 13:00 Glucose (Glutose) 22.5 gm Q15M PRN PO DECREASED GLUCOSE Last administered on 12/19/18 23:35; Admin Dose 22.5 GM; Start 12/18/18 at 13:00 Dextrose (D50w Syringe) 25 ml Q15M PRN IV DECREASED GLUCOSE; Start 12/18/18 at 13:00 Dextrose (D50w Syringe) 50 ml Q15M PRN IV DECREASED GLUCOSE Last administered on 12/22/18 07:09; Admin Dose 50 ML; Start 12/18/18 at 13:00 Glucagon (Glucagen) 1 mg Q15M PRN IM DECREASED GLUCOSE; Start 12/18/18 at 13:00 Glucose (Glutose) 15 gm Q15M PRN BUCCAL DECREASED GLUCOSE; Start 12/18/18 at 13:00 Epoetin Josias-epbx (Retacrit (Esrd)) 8,000 unit MoWeFr@1700 SC Last administered on 12/25/18 17:01; Admin Dose 8,000 UNIT; Start 12/18/18 at 17:00 Levofloxacin (Levaquin) 500 mg Q48H PO Last administered on 12/26/18 08:44; Admin Dose 500 MG; Start 12/20/18 at 08:00 Povidone Iodine (Povidone-Iodine) 1 applic BID TOP Last administered on 12/27/18 12:00; Admin Dose 1 APPLIC; Start 12/18/18 at 21:00 Sodium Hypochlorite (Dakins Diluted (40)) 1 applic BID TP Last administered on 12/27/18 12:03; Admin Dose 1 APPLIC; Start 12/18/18 at 21:00 Multi-Ingredient Ointment (Eucerin Cream) 1 applic DAILY TOP Last administered on 12/27/18 12:02; Admin Dose 1 APPLIC; Start 12/19/18 at 10:28 Ondansetron HCl (Zofran Inj) 4 mg Q6H PRN IV NAUSEA AND/OR VOMITING Last administered on 12/23/18 05:05; Admin Dose 4 MG; Start 12/21/18 at 13:30 Amlodipine Besylate (Norvasc) 5 mg DAILY PO Last administered on 12/27/18 11:59; Admin Dose 5 MG; Start 12/23/18 at 09:00 Lisinopril (Zestril) 40 mg DAILY PO Last administered on 12/27/18 12:00; Admin Dose 40 MG; Start 12/23/18 at 09:00 Linagliptin (Tradjenta) 5 mg DAILY PO Last administered on 12/27/18 12:00; Admin Dose 5 MG; Start 12/22/18 at 14:30 Bromocriptine Mesylate (Parlodel) 2.5 mg QHS PO Last administered on 12/26/18 20:53; Admin Dose 2.5 MG; Start 12/22/18 at 21:00 Diagnostic Test (Pha) (Accu-Chek) 1 ea 2 HOURS AFTER MEALS XX Last administered on 12/27/18 10:30; Admin Dose 1 EA; Start 12/22/18 at 20:00 Diagnostic Test (Pha) (Accu-Chek) 1 ea AC MEALS XX Last administered on 12/27/18 12:03; Admin Dose 1 EA; Start 12/22/18 at 17:30 Vancomycin HCl 250 ml @ 125 mls/hr Q96H IVPB Last administered on 12/27/18 12:03; Admin Dose 125 MLS/HR; Start 12/23/18 at 12:00 Insulin Glargine (Lantus) 2 units DAILY@2000 SC Last administered on 12/26/18at 20:56; Admin Dose 2 UNITS; Start 12/24/18 at 20:00 Metoprolol Tartrate (Lopressor) 100 mg BID PO Last administered on 12/27/18at 12:00; Admin Dose 100 MG; Start 12/26/18 at 21:00 JUWNA TAYLOR Dec 27, 2018 14:03
--- NOTE | 2018-12-27 15:49 | CONS ---
Assessment/Plan Assessment/Plan Problems: (1) Diabetes mellitus type 2 in nonobese Status: Chronic Comment: Patient currently continues with adequate glycemic control under the current protocol. Continue same. (2) End-stage renal disease on hemodialysis Status: Chronic Comment: As per nephrology (3) Foot osteomyelitis, right Status: Chronic Comment: Awaiting podiatric surgery Qualifiers: Osteomyelitis type: subacute Qualified Codes: M86.271 - Subacute osteomyelitis, right ankle and foot (4) Hypertension Status: Chronic Comment: Adequate control Qualifiers: Hypertension type: essential hypertension Qualified Codes: I10 - Essential (primary) hypertension (5) Hyperlipidemia Status: Chronic Comment: Stable without medication side effects on statin therapy Qualifiers: Hyperlipidemia type: pure hypercholesterolemia Qualified Codes: E78.00 - Pure hypercholesterolemia, unspecified (6) 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 Consultation Date/Type/Reason Admit Date/Time Dec 18, 2018 at 04:02 Initial Consult Date 12/22/18 Type of Consult Endocrinology Reason for Consultation Diabetes mellitus type 2 with end-stage renal disease; peripheral neuropathy; osteomyelitis of the foot. Please note this patient does not have respiratory failure as they do not have ventilator dependence they do not have a tracheos [email or web address] Requesting Provider: ADRIANA JUSTICE Date/Time of Note DATE: 12/27/18 TIME: 15:47 24 HR Interval Summary Free Text/Dictation No new complaints Exam/Review of Systems Exam Vitals Vital Signs Date Temp Pulse Resp B/P (MAP) Pulse Ox O2 O2 Flow FiO2 Time Delivery Rate 12/27/18 98.5 83 18 152/70 98 15:34 (97) 12/27/18 Room Air 07:40 Intake and Output 12/26/18 12/26/18 12/27/18 1515:00 23:00 07:00 IntakeIntake Total 980 ml 550 ml BalanceBalance 980 ml 550 ml Constitutional: alert, oriented Respiratory: clear to auscultation, normal air movement Results Result Diagram: 12/25/1851712/25/18517 Results 24hrs Laboratory Tests Test 12/26/18 17:24 12/26/18 20:33 12/27/18 07:55 12/27/18 10:07 Bedside Glucose 152 166 129 117 Test 12/27/18 11:56 12/27/18 14:12 Bedside Glucose 102 131 Medications Medication Current Medications Vancomycin HCl (Vanco Iv Per Pharmacy) VANCOMYCIN PER PHARMACY PER PROTOCOL XX ; Start 12/18/18 at 09:30 Hydralazine HCl (Apresoline) 20 mg Q4 PRN IV HIGH BLOOD Last administered on 12/21/18 03:13; Admin Dose 20 MG; Start 12/18/18 at 09:30 Acetaminophen (Tylenol Tab) 650 mg Q4H PRN PO MILD PAIN(1-3)OR ELEVATED TEMP; Start 12/18/18 at 09:30 Acetaminophen/ Hydrocodone Bitart ([place] (5/325)) 1 tab Q4H PRN PO MODERATE PAIN LEVEL 4-6 Last administered on 12/22/18 00:00; Admin Dose 1 TAB; Start 12/18/18 at 09:30 Insulin Aspart (Novolog Insulin Pen) NOVOLOG *MILD* ALGORITHM WITH MEALS BEDTIME SC Last administered on 12/26/18 17:28; Admin Dose 1 UNIT; Start 12/18/18 at 12:00 Aspirin (Halfprin) 81 mg DAILY PO Last administered on 12/27/18 11:59; Admin Dose 81 MG; Start 12/18/18 at 09:30 Atorvastatin Calcium (Lipitor) 80 mg QHS PO Last administered on 12/26/18 20:51; Admin Dose 80 MG; Start 12/18/18 at 21:00 Baclofen (Lioresal) 10 mg TID PO Last administered on 12/27/18 12:05; Admin Dose 10 MG; Start 12/18/18 at 13:00 Clopidogrel Bisulfate (plaVIX) 75 mg DAILY PO Last administered on 12/27/18 11:59; Admin Dose 75 MG; Start 12/18/18 at 09:30 Multivit/Ca Carb/ B Cmplx/FA/Prenat (Amarilis-Christina) 1 tab DAILY PO Last administered on 12/27/18 12:01; Admin Dose 1 TAB; Start 12/18/18 at 09:30 Mirtazapine (Remeron) 15 mg HS PO Last administered on 12/26/18 20:52; Admin Dose 15 MG; Start 12/18/18 at 21:00 Paroxetine HCl (Paxil) 10 mg DAILY PO Last administered on 12/27/18 12:01; Admin Dose 10 MG; Start 12/18/18 at 09:30 Zinc Sulfate (Zinc Sulfate) 220 mg DAILY PO Last administered on 12/27/18at 11:58; Admin Dose 220 MG; Start 12/18/18 at 09:30 Sevelamer Carbonate (Renvela) 800 mg WITH MEALS PO Last administered on 12/27/18at 11:59; Admin Dose 800 MG; Start 12/18/18 at 11:30 Diagnostic Test (Pha) (Accu-Chek) 1 ea 02 XX ; Start 12/19/18 at 02:00 Miscellaneous Information 1 ea NOTE XX ; Start 12/18/18 at 13:00 Glucose (Glutose) 15 gm Q15M PRN PO DECREASED GLUCOSE Last administered on 12/19/18 22:39; Admin Dose 15 GM; Start 12/18/18 at 13:00 Glucose (Glutose) 22.5 gm Q15M PRN PO DECREASED GLUCOSE Last administered on 12/19/18at 23:35; Admin Dose 22.5 GM; Start 12/18/18 at 13:00 Dextrose (D50w Syringe) 25 ml Q15M PRN IV DECREASED GLUCOSE; Start 12/18/18 at 13:00 Dextrose (D50w Syringe) 50 ml Q15M PRN IV DECREASED GLUCOSE Last administered on 12/22/18at 07:09; Admin Dose 50 ML; Start 12/18/18 at 13:00 Glucagon (Glucagen) 1 mg Q15M PRN IM DECREASED GLUCOSE; Start 12/18/18 at 13:00 Glucose (Glutose) 15 gm Q15M PRN BUCCAL DECREASED GLUCOSE; Start 12/18/18 at 13:00 Epoetin Josias-epbx (Retacrit (Esrd)) 8,000 unit MoWeFr@1700 SC Last administered on 12/25/18at 17:01; Admin Dose 8,000 UNIT; Start 12/18/18 at 17:00 Levofloxacin (Levaquin) 500 mg Q48H PO Last administered on 12/26/18at 08:44; Admin Dose 500 MG; Start 12/20/18 at 08:00 Povidone Iodine (Povidone-Iodine) 1 applic BID TOP Last administered on 12/27/18at 12:00; Admin Dose 1 APPLIC; Start 12/18/18 at 21:00 Sodium Hypochlorite (Dakins Diluted (1/40)) 1 applic BID TP Last administered on 12/27/18 12:03; Admin Dose 1 APPLIC; Start 12/18/18 at 21:00 Multi-Ingredient Ointment (Eucerin Cream) 1 applic DAILY TOP Last administered on 12/27/18 12:02; Admin Dose 1 APPLIC; Start 12/19/18 at 10:28 Ondansetron HCl (Zofran Inj) 4 mg Q6H PRN IV NAUSEA AND/OR VOMITING Last administered on 12/23/18 05:05; Admin Dose 4 MG; Start 12/21/18 at 13:30 Amlodipine Besylate (Norvasc) 5 mg DAILY PO Last administered on 12/27/18 11:59; Admin Dose 5 MG; Start 12/23/18 at 09:00 Lisinopril (Zestril) 40 mg DAILY PO Last administered on 12/27/18 12:00; Admin Dose 40 MG; Start 12/23/18 at 09:00 Linagliptin (Tradjenta) 5 mg DAILY PO Last administered on 12/27/18 12:00; Admin Dose 5 MG; Start 12/22/18 at 14:30 Bromocriptine Mesylate (Parlodel) 2.5 mg QHS PO Last administered on 12/26/18 20:53; Admin Dose 2.5 MG; Start 12/22/18 at 21:00 Diagnostic Test (Pha) (Accu-Chek) 1 ea 2 HOURS AFTER MEALS XX Last administered on 12/27/18 14:13; Admin Dose 1 EA; Start 12/22/18 at 20:00 Diagnostic Test (Pha) (Accu-Chek) 1 ea AC MEALS XX Last administered on 12/27/18 12:03; Admin Dose 1 EA; Start 12/22/18 at 17:30 Vancomycin HCl 250 ml @ 125 mls/hr Q96H IVPB Last administered on 12/27/18 12:03; Admin Dose 125 MLS/HR; Start 12/23/18 at 12:00 Insulin Glargine (Lantus) 2 units DAILY@2000 SC Last administered on 12/26/18 20:56; Admin Dose 2 UNITS; Start 12/24/18 at 20:00 Metoprolol Tartrate (Lopressor) 100 mg BID PO Last administered on 6/14/19at 12:00; Admin Dose 100 MG; Start 12/26/18 at 21:00 RADHA HENSON MD Dec 27, 2018 15:49
--- NOTE | 2018-12-27 16:26 | QN ---
Documentation Comment No c/o. More awake and responsive. AFVSS L arm AVG with good thrill R 2nd toe ulcer - dry, no drainage or erythema L 2nd toe ulcer looks closed - for R 2nd toe amp with Dr. Ford when cleared - will follow JUWAN KANG MD Dec 27, 2018 16:26
[2018-12-27] MEDS: EPOETIN ALFA-EPBX (ESRD) 4,000 UNIT/ML VIAL SC SCH (17:43)
[2018-12-27] MEDS: ATORVASTATIN 80 MG TAB PO SCH (20:20)
[2018-12-27] MEDS: MIRTAZAPINE 15 MG TAB PO SCH (20:21)
[2018-12-27] MEDS: BROMOCRIPTINE 2.5 MG TAB PO SCH (20:21)
[2018-12-27] MEDS: INSULIN GLARGINE [LANTus] (100 UNITS/ML) SYG SC SCH (21:00)
[2018-12-28] VITALS (10 sets, daily range): BP systolic 126–165; BP diastolic 68–80; PULSE 71–100; RESP 18–20
[2018-12-28] MEDS: ACCU-CHEK XX SCH ×7 (02:03→20:18)
[2018-12-28] MEDS: POVIDONE IODINE 10% 28.4 GM OINT TOP SCH ×3 (02:09→20:20)
[2018-12-28] MEDS: INSULIN ASPART [NOVOLOG] 3 ML PEN SC SCH ×4 (07:34→20:31)
[2018-12-28] MEDS: SEVELAMER CARBONATE 800 MG TABLET PO SCH ×3 (07:48→17:28)
[2018-12-28] MEDS: LEVOFLOXACIN 500 MG TAB PO SCH (07:48)
[2018-12-28] MEDS: CLOPIDOGREL 75 MG TAB PO SCH (08:22)
[2018-12-28] MEDS: BACLOFEN 10 MG TAB PO SCH ×3 (08:22→20:18)
[2018-12-28] MEDS: LINAGLIPTIN 5 MG TABLET PO SCH (08:22)
[2018-12-28] MEDS: PAROXETINE 10 MG TAB PO SCH (08:22)
[2018-12-28] MEDS: ASPIRIN (EC) 81 MG TAB PO SCH (08:22)
[2018-12-28] MEDS: MULTIVIT/CA CARB/B CMPLX/FA TAB PO SCH (08:22)
[2018-12-28] MEDS: ZINC SULFATE 220 MG CAP PO SCH (08:22)
[2018-12-28] MEDS: AMLODIPINE 5 MG TAB PO SCH (08:23)
[2018-12-28] MEDS: LISINOPRIL 20 MG TAB PO SCH (08:23)
[2018-12-28] MEDS: METOPROLOL 100 MG TAB PO SCH ×2 (08:23→20:20)
[2018-12-28] MEDS: EUCERIN 113 GM CR TOP SCH (08:30)
[2018-12-28] MEDS: DAKINS 0.0125%(1/40) 473 ML SOLUTION TP SCH ×2 (08:30→20:21)
--- NOTE | 2018-12-28 10:11 | PN ---
Date/Time of Note Date/Time of Note DATE: 12/28/18 TIME: 10:11 Assessment/Plan VTE Prophylaxis Risk score (from Ns)>0 risk: 5 SCD applied (from [facility] [place]): No SCD contraindicated: other Pharmacological prophylaxis: LMWH Lines/Catheters IV Catheter Type (from [facility] [place] Urinary Cath still in place: No Assessment/Plan Hospital Course -Gram-positive cocci in clusters bacteremia, continue antibiotics per ID. Dr. Giles is following in infection disease consultation. -S/p sepsis due to abdominal wall abscess. -Abdominal wall cellulitis/abscess, G-tube DC'd. -Sacral wound, continue wound care per wound care recommendations. -Right buttock abscess, status post I&D by Dr. Carlisle on 12/04/18. Continue wound care per surgical recommendations. -G-tube leak on admission, G-tube DC'd. Patient status post G-tube placement. Dr. Bush is following in gastroenterology consultation. -Hyperkalemia and acute kidney injury, continue IV fluids. Dr. King is follo wing in nephrology consultation. -Ventilator dependent respiratory failure with tracheostomy. -Tachycardia, resolved. is following in cardiology consultation. -Pulmonary fibrosis -COPD -Diabetes mellitus, continue Lantus and NovoLog -Diabetes insipidus, continue desmopressin -Dislocation of the glenohumeral joint,s/p reduced with manipulation by Dr Arango, orthopedic surgery. Continue shoulder immobilizer for the right shoulder for least for about 3 weeks to prevent immediate recurrent dislocations. Result Diagram: 12/28/18 0502 12/25/18 0518 Results 24hrs Laboratory Tests Test 12/27/18 11:56 12/27/18 14:12 12/27/18 17:40 12/27/18 20:18 Bedside Glucose 102 131 105 172 Test 12/28/18 02:11 12/28/18 05:02 12/28/18 07:33 Bedside Glucose 126 81 White Blood Count 9.4 # Red Blood Count 3.26 #L Hemoglobin 9.2 L Hematocrit 29.6 L Mean Corpuscular 90.8 Volume Mean Corpuscular 28.2 L Hemoglobin Mean Corpuscular 31.1 L Hemoglobin Concent Red Cell 16.2 H Distribution Width Platelet Count 335 Mean Platelet Volume 11.0 H Immature 0.200 Granulocytes % Neutrophils % 72.7 Lymphocytes % 9.2 L Monocytes % 16.5 H Eosinophils % 0.7 Basophils % 0.7 Nucleated Red Blood 0.0 Cells % Immature 0.020 Granulocytes # Neutrophils # 6.8 Lymphocytes # 0.9 Monocytes # 1.6 H Eosinophils # 0.1 Basophils # 0.1 Nucleated Red Blood 0.0 Cells # Subjective 24 Hr Interval Summary Free Text/Dictation Patient has no complaints Exam/Review of Systems Exam Vitals Vital Signs Date Temp Pulse Resp B/P (MAP) Pulse Ox O2 O2 Flow FiO2 Time Delivery Rate 12/28/18 96 08:01 12/28/18 99.5 20 165/75 94 Room Air 07:13 (105) Intake and Output 12/27/18 12/27/18 12/28/18 1515:00 23:00 07:00 IntakeIntake Total 430 ml 50 ml OutputOutput Total 2600 ml 150 ml BalanceBalance -2600 ml 430 ml -100 ml Constitutional: well developed, frail Head: normocephalic, atraumatic Neck: supple Respiratory: diminished breath sounds Cardiovascular: regular rate and rhythm Gastrointestinal: soft, non-tender Extremities: normal pulses Results Results 24hrs Laboratory Tests Test 12/27/18 11:56 12/27/18 14:12 12/27/18 17:40 12/27/18 20:18 Bedside Glucose 102 131 105 172 Test 12/28/18 02:11 12/28/18 05:02 12/28/18 07:33 Bedside Glucose 126 81 White Blood Count 9.4 # Red Blood Count 3.26 #L Hemoglobin 9.2 L Hematocrit 29.6 L Mean Corpuscular 90.8 Volume Mean Corpuscular 28.2 L Hemoglobin Mean Corpuscular 31.1 L Hemoglobin Concent Red Cell 16.2 H Distribution Width Platelet Count 335 Mean Platelet Volume 11.0 H Immature 0.200 Granulocytes % Neutrophils % 72.7 Lymphocytes % 9.2 L Monocytes % 16.5 H Eosinophils % 0.7 Basophils % 0.7 Nucleated Red Blood 0.0 Cells % Immature 0.020 Granulocytes # Neutrophils # 6.8 Lymphocytes # 0.9 Monocytes # 1.6 H Eosinophils # 0.1 Basophils # 0.1 Nucleated Red Blood 0.0 Cells # Medications Medication Current Medications Vancomycin HCl (Vanco Iv Per Pharmacy) VANCOMYCIN PER PHARMACY PER PROTOCOL XX ; Start 12/18/18 at 09:30 Hydralazine HCl (Apresoline) 20 mg Q4 PRN IV HIGH BLOOD Last administered on 12/21/18 03:13; Admin Dose 20 MG; Start 12/18/18 at 09:30 Acetaminophen (Tylenol Tab) 650 mg Q4H PRN PO MILD PAIN(1-3)OR ELEVATED TEMP; Start 12/18/18 at 09:30 Acetaminophen/ Hydrocodone Bitart ([place] (5/325)) 1 tab Q4H PRN PO MODERATE PAIN LEVEL 4-6 Last administered on 12/22/18 00:00; Admin Dose 1 TAB; Start 12/18/18 at 09:30 Insulin Aspart (Novolog Insulin Pen) NOVOLOG *MILD* ALGORITHM WITH MEALS BEDTIME SC Last administered on 12/26/18 17:28; Admin Dose 1 UNIT; Start 12/18/18 at 12:00 Aspirin (Halfprin) 81 mg DAILY PO Last administered on 12/28/18 08:22; Admin Dose 81 MG; Start 12/18/18 at 09:30 Atorvastatin Calcium (Lipitor) 80 mg QHS PO Last administered on 12/27/18 20:20; Admin Dose 80 MG; Start 12/18/18 at 21:00 Baclofen (Lioresal) 10 mg TID PO Last administered on 12/28/18 08:22; Admin Dose 10 MG; Start 12/18/18 at 13:00 Clopidogrel Bisulfate (plaVIX) 75 mg DAILY PO Last administered on 12/28/18 08:22; Admin Dose 75 MG; Start 12/18/18 at 09:30 Multivit/Ca Carb/ B Cmplx/FA/Prenat (Amarilis-Christina) 1 tab DAILY PO Last administered on 12/28/18 08:22; Admin Dose 1 TAB; Start 12/18/18 at 09:30 Mirtazapine (Remeron) 15 mg HS PO Last administered on 12/27/18 20:21; Admin Dose 15 MG; Start 12/18/18 at 21:00 Paroxetine HCl (Paxil) 10 mg DAILY PO Last administered on 12/28/18 08:22; Admin Dose 10 MG; Start 12/18/18 at 09:30 Zinc Sulfate (Zinc Sulfate) 220 mg DAILY PO Last administered on 12/28/18 08:22; Admin Dose 220 MG; Start 12/18/18 at 09:30 Sevelamer Carbonate (Renvela) 800 mg WITH MEALS PO Last administered on 12/28/18 07:48; Admin Dose 800 MG; Start 12/18/18 at 11:30 Diagnostic Test (Pha) (Accu-Chek) 1 ea 02 XX Last administered on 12/28/18 02:03; Admin Dose 1 EA; Start 12/19/18 at 02:00 Miscellaneous Information 1 ea NOTE XX ; Start 12/18/18 at 13:00 Glucose (Glutose) 15 gm Q15M PRN PO DECREASED GLUCOSE Last administered on 12/19/18 22:39; Admin Dose 15 GM; Start 12/18/18 at 13:00 Glucose (Glutose) 22.5 gm Q15M PRN PO DECREASED GLUCOSE Last administered on 12/19/18 23:35; Admin Dose 22.5 GM; Start 12/18/18 at 13:00 Dextrose (D50w Syringe) 25 ml Q15M PRN IV DECREASED GLUCOSE; Start 12/18/18 at 13:00 Dextrose (D50w Syringe) 50 ml Q15M PRN IV DECREASED GLUCOSE Last administered on 12/22/18 07:09; Admin Dose 50 ML; Start 12/18/18 at 13:00 Glucagon (Glucagen) 1 mg Q15M PRN IM DECREASED GLUCOSE; Start 12/18/18 at 13:00 Glucose (Glutose) 15 gm Q15M PRN BUCCAL DECREASED GLUCOSE; Start 12/18/18 at 13:00 Epoetin Josias-epbx (Retacrit (Esrd)) 8,000 unit MoWeFr@1700 SC Last administered on 12/27/18at 17:43; Admin Dose 8,000 UNIT; Start 12/18/18 at 17:00 Levofloxacin (Levaquin) 500 mg Q48H PO Last administered on 12/28/18 07:48; Admin Dose 500 MG; Start 12/20/18 at 08:00 Povidone Iodine (Povidone-Iodine) 1 applic BID TOP Last administered on 12/28/18 08:30; Admin Dose 1 APPLIC; Start 12/18/18 at 21:00 Sodium Hypochlorite (Dakins Diluted (1/40)) 1 applic BID TP Last administered on 12/28/18 08:30; Admin Dose 1 APPLIC; Start 12/18/18 at 21:00 Multi-Ingredient Ointment (Eucerin Cream) 1 applic DAILY TOP Last administered on 12/28/18 08:30; Admin Dose 1 APPLIC; Start 12/19/18 at 10:28 Ondansetron HCl (Zofran Inj) 4 mg Q6H PRN IV NAUSEA AND/OR VOMITING Last administered on 12/23/18 05:05; Admin Dose 4 MG; Start 12/21/18 at 13:30 Amlodipine Besylate (Norvasc) 5 mg DAILY PO Last administered on 12/28/18 08: 23; Admin Dose 5 MG; Start 12/23/18 at 09:00 Lisinopril (Zestril) 40 mg DAILY PO Last administered on 12/28/18 08:23; Admin Dose 40 MG; Start 12/23/18 at 09:00 Linagliptin (Tradjenta) 5 mg DAILY PO Last administered on 12/28/18 08:22; Admin Dose 5 MG; Start 12/22/18 at 14:30 Bromocriptine Mesylate (Parlodel) 2.5 mg QHS PO Last administered on 12/27/18 20:21; Admin Dose 2.5 MG; Start 12/22/18 at 21:00 Diagnostic Test (Pha) (Accu-Chek) 1 ea 2 HOURS AFTER MEALS XX Last administered on 12/27/18 20:20; Admin Dose 1 EA; Start 12/22/18 at 20:00 Diagnostic Test (Pha) (Accu-Chek) 1 ea AC MEALS XX Last administered on 12/28/18 07:34; Admin Dose 1 EA; Start 12/22/18 at 17:30 Vancomycin HCl 250 ml @ 125 mls/hr Q96H IVPB Last administered on 12/27/18 12:03; Admin Dose 125 MLS/HR; Start 12/23/18 at 12:00 Insulin Glargine (Lantus) 2 units DAILY@2000 SC Last administered on 12/27/18 21:00; Admin Dose 2 UNITS; Start 12/24/18 at 20:00 Metoprolol Tartrate (Lopressor) 100 mg BID PO Last administered on 6/15/19at 08:23; Admin Dose 100 MG; Start 12/26/18 at 21:00 UNRULY ANTONY Dec 28, 2018 10:11
--- NOTE | 2018-12-28 13:52 | CONS ---
Assessment/Plan Assessment/Plan Hospital Course (Demo Recall) 1. End-stage renal disease.s/p HD yesterday. next hd tomorrow 2. Hyperkalemia, resolved. Continue dialysis on low potassium bath. 3. Anemia. Continue to monitor hemoglobin and hematocrit levels. Continue Epogen. 4. Mineral bone disorder, monitor calcium and phosphorus levels. 5. Diabetic foot ulcer. Continue wound care. Follow up with podiatry. 6. Diabetes. Continue current insulin regimen. 7. History of cerebrovascular accident. Continue medical management. 8. Encephalopathy, etiology is toxic metabolic, improving. 9. Hypertension. Continue current blood pressure regimen. 10. Dyslipidemia. Continue statin therapy. Consultation Date/Type/Reason Admit Date/Time Dec 18, 2018 at 04:02 Initial Consult Date 12/22/18 Requesting Provider: ADRIANA JUSTICE Date/Time of Note DATE: 12/28/18 TIME: 13:51 24 HR Interval Summary Free Text/Dictation s/p hd yesterday denies n.v, shortness of breath d/w rn gen nad cv rrr pulm ctab abd soft, nd, nt +bs ext: no edema Exam/Review of Systems Exam Vitals Vital Signs Date Temp Pulse Resp B/P (MAP) Pulse Ox O2 O2 Flow FiO2 Time Delivery Rate 12/28/18 91 12:01 12/28/18 99.7 20 144/68 100 Room Air 11:32 (93) Intake and Output 12/27/18 12/27/18 12/28/18 1515:00 23:00 07:00 IntakeIntake Total 430 ml 50 ml OutputOutput Total 2600 ml 150 ml BalanceBalance -2600 ml 430 ml -100 ml Results Result Diagram: 12/28/18 0502 12/25/18 0518 Results 24hrs Laboratory Tests Test 12/27/18 14:12 12/27/18 17:40 12/27/18 20:18 12/28/18 02:11 Bedside Glucose 131 105 172 126 Test 12/28/18 05:02 12/28/18 07:33 12/28/18 11:50 White Blood Count 9.4 # Red Blood Count 3.26 #L Hemoglobin 9.2 L Hematocrit 29.6 L Mean Corpuscular 90.8 Volume Mean Corpuscular 28.2 L Hemoglobin Mean Corpuscular 31.1 L Hemoglobin Concent Red Cell 16.2 H Distribution Width Platelet Count 335 Mean Platelet Volume 11.0 H Immature 0.200 Granulocytes % Neutrophils % 72.7 Lymphocytes % 9.2 L Monocytes % 16.5 H Eosinophils % 0.7 Basophils % 0.7 Nucleated Red Blood 0.0 Cells % Immature 0.020 Granulocytes # Neutrophils # 6.8 Lymphocytes # 0.9 Monocytes # 1.6 H Eosinophils # 0.1 Basophils # 0.1 Nucleated Red Blood 0.0 Cells # Bedside Glucose 81 169 Medications Medication Current Medications Vancomycin HCl (Vanco Iv Per Pharmacy) VANCOMYCIN PER PHARMACY PER PROTOCOL XX ; Start 12/18/18 at 09:30 Hydralazine HCl (Apresoline) 20 mg Q4 PRN IV HIGH BLOOD Last administered on 12/21/18 03:13; Admin Dose 20 MG; Start 12/18/18 at 09:30 Acetaminophen (Tylenol Tab) 650 mg Q4H PRN PO MILD PAIN(1-3)OR ELEVATED TEMP; Start 12/18/18 at 09:30 Acetaminophen/ Hydrocodone Bitart ([place] (5/325)) 1 tab Q4H PRN PO MODERATE PAIN LEVEL 4-6 Last administered on 12/22/18 00:00; Admin Dose 1 TAB; Start 12/18/18 at 09:30 Insulin Aspart (Novolog Insulin Pen) NOVOLOG *MILD* ALGORITHM WITH MEALS BEDTIME SC Last administered on 12/28/18 12:22; Admin Dose 1 UNIT; Start 12/18/18 at 12:00 Aspirin (Halfprin) 81 mg DAILY PO Last administered on 12/28/18 08:22; Admin Dose 81 MG; Start 12/18/18 at 09:30 Atorvastatin Calcium (Lipitor) 80 mg QHS PO Last administered on 12/27/18 20:20; Admin Dose 80 MG; Start 12/18/18 at 21:00 Baclofen (Lioresal) 10 mg TID PO Last administered on 12/28/18 12:21; Admin Dose 10 MG; Start 12/18/18 at 13:00 Clopidogrel Bisulfate (plaVIX) 75 mg DAILY PO Last administered on 12/28/18 08:22; Admin Dose 75 MG; Start 12/18/18 at 09:30 Multivit/Ca Carb/ B Cmplx/FA/Prenat (Amarilis-Christina) 1 tab DAILY PO Last administered on 12/28/18 08:22; Admin Dose 1 TAB; Start 12/18/18 at 09:30 Mirtazapine (Remeron) 15 mg HS PO Last administered on 12/27/18 20:21; Admin Dose 15 MG; Start 12/18/18 at 21:00 Paroxetine HCl (Paxil) 10 mg DAILY PO Last administered on 12/28/18 08:22; Admin Dose 10 MG; Start 12/18/18 at 09:30 Zinc Sulfate (Zinc Sulfate) 220 mg DAILY PO Last administered on 12/28/18 08:22; Admin Dose 220 MG; Start 12/18/18 at 09:30 Sevelamer Carbonate (Renvela) 800 mg WITH MEALS PO Last administered on 12/28/18 12:21; Admin Dose 800 MG; Start 12/18/18 at 11:30 Diagnostic Test (Pha) (Accu-Chek) 1 ea 02 XX Last administered on 12/28/18at 02:03; Admin Dose 1 EA; Start 12/19/18 at 02:00 Miscellaneous Information 1 ea NOTE XX ; Start 12/18/18 at 13:00 Glucose (Glutose) 15 gm Q15M PRN PO DECREASED GLUCOSE Last administered on 12/19/18 22:39; Admin Dose 15 GM; Start 12/18/18 at 13:00 Glucose (Glutose) 22.5 gm Q15M PRN PO DECREASED GLUCOSE Last administered on 12/19/18 23:35; Admin Dose 22.5 GM; Start 12/18/18 at 13:00 Dextrose (D50w Syringe) 25 ml Q15M PRN IV DECREASED GLUCOSE; Start 12/18/18 at 13:00 Dextrose (D50w Syringe) 50 ml Q15M PRN IV DECREASED GLUCOSE Last administered on 12/22/18 07:09; Admin Dose 50 ML; Start 12/18/18 at 13:00 Glucagon (Glucagen) 1 mg Q15M PRN IM DECREASED GLUCOSE; Start 12/18/18 at 13:00 Glucose (Glutose) 15 gm Q15M PRN BUCCAL DECREASED GLUCOSE; Start 12/18/18 at 13:00 Epoetin Josias-epbx (Retacrit (Esrd)) 8,000 unit MoWeFr@1700 SC Last administered on 12/27/18 17:43; Admin Dose 8,000 UNIT; Start 12/18/18 at 17:00 Levofloxacin (Levaquin) 500 mg Q48H PO Last administered on 12/28/18 07:48; Admin Dose 500 MG; Start 12/20/18 at 08:00 Povidone Iodine (Povidone-Iodine) 1 applic BID TOP Last administered on 12/28/18 08:30; Admin Dose 1 APPLIC; Start 12/18/18 at 21:00 Sodium Hypochlorite (Dakins Diluted (40)) 1 applic BID TP Last administered on 12/28/18 08:30; Admin Dose 1 APPLIC; Start 12/18/18 at 21:00 Multi-Ingredient Ointment (Eucerin Cream) 1 applic DAILY TOP Last administered on 12/28/18 08:30; Admin Dose 1 APPLIC; Start 12/19/18 at 10:28 Ondansetron HCl (Zofran Inj) 4 mg Q6H PRN IV NAUSEA AND/OR VOMITING Last administered on 12/23/18 05:05; Admin Dose 4 MG; Start 12/21/18 at 13:30 Amlodipine Besylate (Norvasc) 5 mg DAILY PO Last administered on 12/28/18 08:2 3; Admin Dose 5 MG; Start 12/23/18 at 09:00 Lisinopril (Zestril) 40 mg DAILY PO Last administered on 12/28/18 08:23; Admin Dose 40 MG; Start 12/23/18 at 09:00 Linagliptin (Tradjenta) 5 mg DAILY PO Last administered on 12/28/18 08:22; Admin Dose 5 MG; Start 12/22/18 at 14:30 Bromocriptine Mesylate (Parlodel) 2.5 mg QHS PO Last administered on 12/27/18 20:21; Admin Dose 2.5 MG; Start 12/22/18 at 21:00 Diagnostic Test (Pha) (Accu-Chek) 1 ea 2 HOURS AFTER MEALS XX Last administered on 12/28/18 10:20; Admin Dose 1 EA; Start 12/22/18 at 20:00 Diagnostic Test (Pha) (Accu-Chek) 1 ea AC MEALS XX Last administered on 6/15/19at 11:35; Admin Dose 1 EA; Start 12/22/18 at 17:30 Vancomycin HCl 250 ml @ 125 mls/hr Q96H IVPB Last administered on 12/27/18 12:03; Admin Dose 125 MLS/HR; Start 12/23/18 at 12:00 Insulin Glargine (Lantus) 2 units DAILY@2000 SC Last administered on 12/27/18 21:00; Admin Dose 2 UNITS; Start 12/24/18 at 20:00 Metoprolol Tartrate (Lopressor) 100 mg BID PO Last administered on 12/28/18 08:23; Admin Dose 100 MG; Start 12/26/18 at 21:00 CADY PORTILLO MD Dec 28, 2018 13:52
--- NOTE | 2018-12-28 15:37 | CONS ---
Assessment/Plan Assessment/Plan Assessment/Plan (Daily) HTN Dyslipidemia. Peripheral arterial disease with nonhealing lower extremity ulcers. Nonhealing lower extremity ulcers. Diabetes mellitus. ESRD on HD Awaiting ciro=cuong Continue Lopressor Continue Norvasc and Lisinopril Continue ASA and Plavix Continue Insulin Continue Lipitor Continue Renvela HD as scheduled Consultation Date/Type/Reason Admit Date/Time Dec 18, 2018 at 04:02 Type of Consult Cardiology Date/Time of Note DATE: 12/28/18 TIME: 15:31 Past Medical History Home Meds Reported Medications Folic Acid/Vitamin B Comp W-C (Renal Multivitamin Tablet) 0.8 Mg Tablet, 1 TAB PO DAILY for 90 Days, #90 12/18/18 Glimepiride* (Glimepiride*) 2 Mg Tablet, 2 MG PO BID for 90 Days, #180 12/18/18 Clopidogrel Bisulfate (Clopidogrel) 75 Mg Tablet, 75 MG PO DAILY for 90 Days, #90 12/18/18 Levofloxacin* (Levofloxacin*) 500 Mg Tablet, 500 MG PO DAILY 12/18/18 Amlodipine Besylate* (Norvasc*) 10 Mg Tablet, 10 MG PO DAILY, TAB 07/12/18 Sevelamer Hcl* (Renagel*) 800 Mg Tablet, 800 MG PO WITH MEALS, TAB 07/12/18 Zinc Sulfate* (Zinc Sulfate*) 220 Mg Cap, 220 MG PO DAILY, CAP 07/12/18 Glipizide* (Glipizide*) 5 Mg Tablet, 5 MG PO AC BREAKFAST DINNER, TAB 07/12/18 Folic Acid/Vitamin B Comp W-C (Nephrocaps Capsule) 1 Mg Capsule, 1 MG PO DAILY, CAP 07/12/18 Atorvastatin* (Atorvastatin*) 80 Mg Tablet, 80 MG PO QHS, #30 TAB 07/12/18 Baclofen* (Baclofen*) 10 Mg Tablet, 10 MG PO TID, TAB 07/12/18 Mirtazapine* (Mirtazapine*) 15 Mg Tablet, 15 MG PO HS, TAB 07/12/18 Aspirin (Low Dose Aspirin) 81 Mg Tablet.dr, 81 MG PO DAILY, #30 TAB 07/12/18 Paroxetine Hcl* (Paxil*) 10 Mg Tablet, 10 MG PO DAILY, TAB 07/12/18 Medications Current Medications Vancomycin HCl (Vanco Iv Per Pharmacy) VANCOMYCIN PER PHARMACY PER PROTOCOL XX ; Start 12/18/18 at 09:30 Hydralazine HCl (Apresoline) 20 mg Q4 PRN IV HIGH BLOOD Last administered on 12/21/18 03:13; Admin Dose 20 MG; Start 12/18/18 at 09:30 Acetaminophen (Tylenol Tab) 650 mg Q4H PRN PO MILD PAIN(1-3)OR ELEVATED TEMP; Start 12/18/18 at 09:30 Acetaminophen/ Hydrocodone Bitart ([place] (5/325)) 1 tab Q4H PRN PO MODERATE PAIN LEVEL 4-6 Last administered on 12/22/18 00:00; Admin Dose 1 TAB; Start 12/18/18 at 09:30 Insulin Aspart (Novolog Insulin Pen) NOVOLOG *MILD* ALGORITHM WITH MEALS BEDTIME SC Last administered on 12/28/18 12:22; Admin Dose 1 UNIT; Start 12/18/18 at 12:00 Aspirin (Halfprin) 81 mg DAILY PO Last administered on 12/28/18 08:22; Admin Dose 81 MG; Start 12/18/18 at 09:30 Atorvastatin Calcium (Lipitor) 80 mg QHS PO Last administered on 12/27/18 20:20; Admin Dose 80 MG; Start 12/18/18 at 21:00 Baclofen (Lioresal) 10 mg TID PO Last administered on 12/28/18 12:21; Admin Dose 10 MG; Start 12/18/18 at 13:00 Clopidogrel Bisulfate (plaVIX) 75 mg DAILY PO Last administered on 12/28/18 08:22; Admin Dose 75 MG; Start 12/18/18 at 09:30 Multivit/Ca Carb/ B Cmplx/FA/Prenat (Amarilis-Christina) 1 tab DAILY PO Last admin istered on 12/28/18 08:22; Admin Dose 1 TAB; Start 12/18/18 at 09:30 Mirtazapine (Remeron) 15 mg HS PO Last administered on 12/27/18 20:21; Admin Dose 15 MG; Start 12/18/18 at 21:00 Paroxetine HCl (Paxil) 10 mg DAILY PO Last administered on 12/28/18 08:22; Admin Dose 10 MG; Start 12/18/18 at 09:30 Zinc Sulfate (Zinc Sulfate) 220 mg DAILY PO Last administered on 12/28/18 08:22; Admin Dose 220 MG; Start 12/18/18 at 09:30 Sevelamer Carbonate (Renvela) 800 mg WITH MEALS PO Last administered on 12/28/18 12:21; Admin Dose 800 MG; Start 12/18/18 at 11:30 Diagnostic Test (Pha) (Accu-Chek) 1 ea 02 XX Last administered on 12/28/18 02:03; Admin Dose 1 EA; Start 12/19/18 at 02:00 Miscellaneous Information 1 ea NOTE XX ; Start 12/18/18 at 13:00 Glucose (Glutose) 15 gm Q15M PRN PO DECREASED GLUCOSE Last administered on 12/19/18 22:39; Admin Dose 15 GM; Start 12/18/18 at 13:00 Glucose (Glutose) 22.5 gm Q15M PRN PO DECREASED GLUCOSE Last administered on 12/19/18at 23:35; Admin Dose 22.5 GM; Start 12/18/18 at 13:00 Dextrose (D50w Syringe) 25 ml Q15M PRN IV DECREASED GLUCOSE; Start 12/18/18 at 13:00 Dextrose (D50w Syringe) 50 ml Q15M PRN IV DECREASED GLUCOSE Last administered on 12/22/18 07:09; Admin Dose 50 ML; Start 12/18/18 at 13:00 Glucagon (Glucagen) 1 mg Q15M PRN IM DECREASED GLUCOSE; Start 12/18/18 at 13:00 Glucose (Glutose) 15 gm Q15M PRN BUCCAL DECREASED GLUCOSE; Start 12/18/18 at 13 :00 Epoetin Josias-epbx (Retacrit (Esrd)) 8,000 unit MoWeFr@1700 SC Last administered on 12/27/18at 17:43; Admin Dose 8,000 UNIT; Start 12/18/18 at 17:00 Levofloxacin (Levaquin) 500 mg Q48H PO Last administered on 12/28/18 07:48; Admin Dose 500 MG; Start 12/20/18 at 08:00 Povidone Iodine (Povidone-Iodine) 1 applic BID TOP Last administered on 12/28/18 08:30; Admin Dose 1 APPLIC; Start 12/18/18 at 21:00 Sodium Hypochlorite (Dakins Diluted (1/40)) 1 applic BID TP Last administered on 12/28/18 08:30; Admin Dose 1 APPLIC; Start 12/18/18 at 21:00 Multi-Ingredient Ointment (Eucerin Cream) 1 applic DAILY TOP Last administered on 12/28/18 08:30; Admin Dose 1 APPLIC; Start 12/19/18 at 10:28 Ondansetron HCl (Zofran Inj) 4 mg Q6H PRN IV NAUSEA AND/OR VOMITING Last administered on 12/23/18 05:05; Admin Dose 4 MG; Start 12/21/18 at 13:30 Amlodipine Besylate (Norvasc) 5 mg DAILY PO Last administered on 12/28/18 08:23; Admin Dose 5 MG; Start 12/23/18 at 09:00 Lisinopril (Zestril) 40 mg DAILY PO Last administered on 12/28/18 08:23; Admin Dose 40 MG; Start 12/23/18 at 09:00 Linagliptin (Tradjenta) 5 mg DAILY PO Last administered on 12/28/18 08:22; Admin Dose 5 MG; Start 12/22/18 at 14:30 Bromocriptine Mesylate (Parlodel) 2.5 mg QHS PO Last administered on 12/27/18 20:21; Admin Dose 2.5 MG; Start 12/22/18 at 21:00 Diagnostic Test (Pha) (Accu-Chek) 1 ea 2 HOURS AFTER MEALS XX Last admin istered on 12/28/18 14:16; Admin Dose 1 EA; Start 12/22/18 at 20:00 Diagnostic Test (Pha) (Accu-Chek) 1 ea AC MEALS XX Last administered on 12/28/18 11:35; Admin Dose 1 EA; Start 12/22/18 at 17:30 Vancomycin HCl 250 ml @ 125 mls/hr Q96H IVPB Last administered on 12/27/18 12:03; Admin Dose 125 MLS/HR; Start 12/23/18 at 12:00 Insulin Glargine (Lantus) 2 units DAILY@2000 SC Last administered on 12/27/18 21:00; Admin Dose 2 UNITS; Start 12/24/18 at 20:00 Metoprolol Tartrate (Lopressor) 100 mg BID PO Last administered on 12/28/18at 08:23; Admin Dose 100 MG; Start 12/26/18 at 21:00 Allergies: Coded Allergies: clindamycin (Verified Allergy, Severe, 12/18/18) Past Surgical History Past Surgical Hx: other (Status post left upper extremity AV fistula creation 2 years ago, status post bilateral cataract surgery) Social History Alcohol Use: none Smoking Status: Former smoker Drug Use: none Exam/Review of Systems Vital Signs Vitals Vital Signs Date Temp Pulse Resp B/P (MAP) Pulse Ox O2 O2 Flow FiO2 Time Delivery Rate 12/28/18 91 12:01 12/28/18 99.7 20 144/68 100 Room Air 11:32 (93) Intake and Output 12/27/18 12/27/18 12/28/18 1515:00 23:00 07:00 IntakeIntake Total 430 ml 50 ml OutputOutput Total 2600 ml 150 ml BalanceBalance -2600 ml 430 ml -100 ml Exam Constitutional: alert, oriented Head: normocephalic, atraumatic Neck: supple, non-tender Respiratory: clear to auscultation Cardiovascular: regular rate and rhythm (no m/r/g) Gastrointestinal: soft Extremities: normal pulses Labs Result Diagram: 12/28/18 0502 12/25/18 0518 Results 24hrs Laboratory Tests Test 12/27/18 17:40 12/27/18 20:18 12/28/18 02:11 12/28/18 05:02 Bedside Glucose 105 172 126 White Blood Count 9.4 # Red Blood Count 3.26 #L Hemoglobin 9.2 L Hematocrit 29.6 L Mean Corpuscular 90.8 Volume Mean Corpuscular 28.2 L Hemoglobin Mean Corpuscular 31.1 L Hemoglobin Concent Red Cell 16.2 H Distribution Width Platelet Count 335 Mean Platelet Volume 11.0 H Immature 0.200 Granulocytes % Neutrophils % 72.7 Lymphocytes % 9.2 L Monocytes % 16.5 H Eosinophils % 0.7 Basophils % 0.7 Nucleated Red Blood 0.0 Cells % Immature 0.020 Granulocytes # Neutrophils # 6.8 Lymphocytes # 0.9 Monocytes # 1.6 H Eosinophils # 0.1 Basophils # 0.1 Nucleated Red Blood 0.0 Cells # Test 12/28/18 07:33 12/28/18 11:50 Bedside Glucose 81 169 Medications Medications Current Medications Vancomycin HCl (Vanco Iv Per Pharmacy) VANCOMYCIN PER PHARMACY PER PROTOCOL XX ; Start 12/18/18 at 09:30 Hydralazine HCl (Apresoline) 20 mg Q4 PRN IV HIGH BLOOD Last administered on 12/21/18 03:13; Admin Dose 20 MG; Start 12/18/18 at 09:30 Acetaminophen (Tylenol Tab) 650 mg Q4H PRN PO MILD PAIN(1-3)OR ELEVATED TEMP; Start 12/18/18 at 09:30 Acetaminophen/ Hydrocodone Bitart ([place] (5/325)) 1 tab Q4H PRN PO MODERATE PAIN LEVEL 4-6 Last administered on 12/22/18 00:00; Admin Dose 1 TAB; Start 12/18/18 at 09:30 Insulin Aspart (Novolog Insulin Pen) NOVOLOG *MILD* ALGORITHM WITH MEALS BEDTIME SC Last administered on 12/28/18 12:22; Admin Dose 1 UNIT; Start 12/18/18 at 12:00 Aspirin (Halfprin) 81 mg DAILY PO Last administered on 12/28/18 08:22; Admin Dose 81 MG; Start 12/18/18 at 09:30 Atorvastatin Calcium (Lipitor) 80 mg QHS PO Last administered on 12/27/18 20:20; Admin Dose 80 MG; Start 12/18/18 at 21:00 Baclofen (Lioresal) 10 mg TID PO Last administered on 12/28/18 12:21; Admin Dose 10 MG; Start 12/18/18 at 13:00 Clopidogrel Bisulfate (plaVIX) 75 mg DAILY PO Last administered on 12/28/18 08:22; Admin Dose 75 MG; Start 12/18/18 at 09:30 Multivit/Ca Carb/ B Cmplx/FA/Prenat (Amarilis-Christina) 1 tab DAILY PO Last administered on 12/28/18 08:22; Admin Dose 1 TAB; Start 12/18/18 at 09:30 Mirtazapine (Remeron) 15 mg HS PO Last administered on 12/27/18 20:21; Admin Dose 15 MG; Start 12/18/18 at 21:00 Paroxetine HCl (Paxil) 10 mg DAILY PO Last administered on 12/28/18 08:22; Admin Dose 10 MG; Start 12/18/18 at 09:30 Zinc Sulfate (Zinc Sulfate) 220 mg DAILY PO Last administered on 12/28/18 08:22; Admin Dose 220 MG; Start 12/18/18 at 09:30 Sevelamer Carbonate (Renvela) 800 mg WITH MEALS PO Last administered on 12/28/18 12:21; Admin Dose 800 MG; Start 12/18/18 at 11:30 Diagnostic Test (Pha) (Accu-Chek) 1 ea 02 XX Last administered on 12/28/18 02:03; Admin Dose 1 EA; Start 12/19/18 at 02:00 Miscellaneous Information 1 ea NOTE XX ; Start 12/18/18 at 13:00 Glucose (Glutose) 15 gm Q15M PRN PO DECREASED GLUCOSE Last administered on 12/19/18 22:39; Admin Dose 15 GM; Start 12/18/18 at 13:00 Glucose (Glutose) 22.5 gm Q15M PRN PO DECREASED GLUCOSE Last administered on 12/19/18 23:35; Admin Dose 22.5 GM; Start 12/18/18 at 13:00 Dextrose (D50w Syringe) 25 ml Q15M PRN IV DECREASED GLUCOSE; Start 12/18/18 at 13:00 Dextrose (D50w Syringe) 50 ml Q15M PRN IV DECREASED GLUCOSE Last administered on 12/22/18 07:09; Admin Dose 50 ML; Start 12/18/18 at 13:00 Glucagon (Glucagen) 1 mg Q15M PRN IM DECREASED GLUCOSE; Start 12/18/18 at 13:00 Glucose (Glutose) 15 gm Q15M PRN BUCCAL DECREASED GLUCOSE; Start 12/18/18 at 13:00 Epoetin Josias-epbx (Retacrit (Esrd)) 8,000 unit MoWeFr@1700 SC Last administered on 12/27/18 17:43; Admin Dose 8,000 UNIT; Start 12/18/18 at 17:00 Levofloxacin (Levaquin) 500 mg Q48H PO Last administered on 12/28/18 07:48; Admin Dose 500 MG; Start 12/20/18 at 08:00 Povidone Iodine (Povidone-Iodine) 1 applic BID TOP Last administered on 6/15/19at 08:30; Admin Dose 1 APPLIC; Start 12/18/18 at 21:00 Sodium Hypochlorite (Dakins Diluted (40)) 1 applic BID TP Last administered on 12/28/18 08:30; Admin Dose 1 APPLIC; Start 12/18/18 at 21:00 Multi-Ingredient Ointment (Eucerin Cream) 1 applic DAILY TOP Last administered on 12/28/18 08:30; Admin Dose 1 APPLIC; Start 12/19/18 at 10:28 Ondansetron HCl (Zofran Inj) 4 mg Q6H PRN IV NAUSEA AND/OR VOMITING Last administered on 12/23/18 05:05; Admin Dose 4 MG; Start 12/21/18 at 13:30 Amlodipine Besylate (Norvasc) 5 mg DAILY PO Last administered on 12/28/18 08:23; Admin Dose 5 MG; Start 12/23/18 at 09:00 Lisinopril (Zestril) 40 mg DAILY PO Last administered on 12/28/18 08:23; Admin Dose 40 MG; Start 12/23/18 at 09:00 Linagliptin (Tradjenta) 5 mg DAILY PO Last administered on 12/28/18 08:22; Admin Dose 5 MG; Start 12/22/18 at 14:30 Bromocriptine Mesylate (Parlodel) 2.5 mg QHS PO Last administered on 12/27/18 20:21; Admin Dose 2.5 MG; Start 12/22/18 at 21:00 Diagnostic Test (Pha) (Accu-Chek) 1 ea 2 HOURS AFTER MEALS XX Last administered on 12/28/18 14:16; Admin Dose 1 EA; Start 12/22/18 at 20:00 Diagnostic Test (Pha) (Accu-Chek) 1 ea AC MEALS XX Last administered on 12/28/18 11:35; Admin Dose 1 EA; Start 12/22/18 at 17:30 Vancomycin HCl 250 ml @ 125 mls/hr Q96H IVPB Last administered on 12/27/18 12:03; Admin Dose 125 MLS/HR; Start 12/23/18 at 12:00 Insulin Glargine (Lantus) 2 units DAILY@2000 SC Last administered on 12/27/18 21:00; Admin Dose 2 UNITS; Start 12/24/18 at 20:00 Metoprolol Tartrate (Lopressor) 100 mg BID PO Last administered on 12/28/18at 08:23; Admin Dose 100 MG; Start 12/26/18 at 21:00 LISBETH PEREZ M.D. Dec 28, 2018 15:37
--- NOTE | 2018-12-28 15:53 | CONS ---
Consultation Date/Type/Reason Admit Date/Time Dec 18, 2018 at 04:02 Initial Consult Date 12/22/18 Type of Consult SUBJECTIVE: Pt is sleepy, afebrile. No acute events over night VS: stable T: 99.0 LABS: Reviewed. WBC- 9.4 Indwelling's: Left upper extremity AV fistula Allergy: Clindamycin Antimicrobials: Levofloxacin, Vanco Physical examination: GEN: Well-developed well-nourished elderly -[place] male, who is in no distress. HENT: Head atraumatic normocephalic; neck is supple PULM: chest rise symmetrical breath sounds diminished bases. Heart: S1-S2. Abdomen: soft, bowel sounds present. Extremities with bilateral lower extremities dressing intact Assessment: 1. Bilateral lower extremities wounds with cellulitis and osteomyelitis 2. End-stage renal disease 3. Diabetes 4. Diabetic neuropathy Plan: Pt is clinically stable. Continue current antibiotics. HD per renal. Podiatry rec-s==>plan for right 2nd toe amputation Requesting Provider: ADRIANA JUSTICE Date/Time of Note DATE: 12/28/18 TIME: 15:51 Exam/Review of Systems Exam Vitals Vital Signs Date Temp Pulse Resp B/P (MAP) Pulse Ox O2 O2 Flow FiO2 Time Delivery Rate 12/28/18 99.0 93 20 157/68 95 Room Air 15:35 (97) Intake and Output 12/27/18 12/27/18 12/28/18 1515:00 23:00 07:00 IntakeIntake Total 430 ml 50 ml OutputOutput Total 2600 ml 150 ml BalanceBalance -2600 ml 430 ml -100 ml Results Result Diagram: 12/28/18 0502 12/25/18 0518 Results 24hrs Laboratory Tests Test 12/27/18 17:40 12/27/18 20:18 12/28/18 02:11 12/28/18 05:02 Bedside Glucose 105 172 126 White Blood Count 9.4 # Red Blood Count 3.26 #L Hemoglobin 9.2 L Hematocrit 29.6 L Mean Corpuscular 90.8 Volume Mean Corpuscular 28.2 L Hemoglobin Mean Corpuscular 31.1 L Hemoglobin Concent Red Cell 16.2 H Distribution Width Platelet Count 335 Mean Platelet Volume 11.0 H Immature 0.200 Granulocytes % Neutrophils % 72.7 Lymphocytes % 9.2 L Monocytes % 16.5 H Eosinophils % 0.7 Basophils % 0.7 Nucleated Red Blood 0.0 Cells % Immature 0.020 Granulocytes # Neutrophils # 6.8 Lymphocytes # 0.9 Monocytes # 1.6 H Eosinophils # 0.1 Basophils # 0.1 Nucleated Red Blood 0.0 Cells # Test 12/28/18 07:33 12/28/18 11:50 Bedside Glucose 81 169 Medications Medication Current Medications Vancomycin HCl (Vanco Iv Per Pharmacy) VANCOMYCIN PER PHARMACY PER PROTOCOL XX ; Start 12/18/18 at 09:30 Hydralazine HCl (Apresoline) 20 mg Q4 PRN IV HIGH BLOOD Last administered on 12/21/18 03:13; Admin Dose 20 MG; Start 12/18/18 at 09:30 Acetaminophen (Tylenol Tab) 650 mg Q4H PRN PO MILD PAIN(1-3)OR ELEVATED TEMP; Start 12/18/18 at 09:30 Acetaminophen/ Hydrocodone Bitart ([place] (5/325)) 1 tab Q4H PRN PO MODERATE PAIN LEVEL 4-6 Last administered on 12/22/18 00:00; Admin Dose 1 TAB; Start 12/18/18 at 09:30 Insulin Aspart (Novolog Insulin Pen) NOVOLOG *MILD* ALGORITHM WITH MEALS BEDTIME SC Last administered on 12/28/18 12:22; Admin Dose 1 UNIT; Start 12/18/18 at 12:00 Aspirin (Halfprin) 81 mg DAILY PO Last administered on 12/28/18 08:22; Admin Dose 81 MG; Start 12/18/18 at 09:30 Atorvastatin Calcium (Lipitor) 80 mg QHS PO Last administered on 12/27/18 20:20; Admin Dose 80 MG; Start 12/18/18 at 21:00 Baclofen (Lioresal) 10 mg TID PO Last administered on 12/28/18 12:21; Admin Dose 10 MG; Start 12/18/18 at 13:00 Clopidogrel Bisulfate (plaVIX) 75 mg DAILY PO Last administered on 12/28/18 08:22; Admin Dose 75 MG; Start 12/18/18 at 09:30 Multivit/Ca Carb/ B Cmplx/FA/Prenat (Amarilis-Christina) 1 tab DAILY PO Last administered on 12/28/18 08:22; Admin Dose 1 TAB; Start 12/18/18 at 09:30 Mirtazapine (Remeron) 15 mg HS PO Last administered on 12/27/18 20:21; Admin Dose 15 MG; Start 12/18/18 at 21:00 Paroxetine HCl (Paxil) 10 mg DAILY PO Last administered on 12/28/18 08:22; Admin Dose 10 MG; Start 12/18/18 at 09:30 Zinc Sulfate (Zinc Sulfate) 220 mg DAILY PO Last administered on 12/28/18 08:22; Admin Dose 220 MG; Start 12/18/18 at 09:30 Sevelamer Carbonate (Renvela) 800 mg WITH MEALS PO Last administered on 12/28/18 12:21; Admin Dose 800 MG; Start 12/18/18 at 11:30 Diagnostic Test (Pha) (Accu-Chek) 1 ea 02 XX Last administered on 12/28/18 02:03; Admin Dose 1 EA; Start 12/19/18 at 02:00 Miscellaneous Information 1 ea NOTE XX ; Start 12/18/18 at 13:00 Glucose (Glutose) 15 gm Q15M PRN PO DECREASED GLUCOSE Last administered on 12/19/18 22:39; Admin Dose 15 GM; Start 12/18/18 at 13:00 Glucose (Glutose) 22.5 gm Q15M PRN PO DECREASED GLUCOSE Last administered on 12/19/18 23:35; Admin Dose 22.5 GM; Start 12/18/18 at 13:00 Dextrose (D50w Syringe) 25 ml Q15M PRN IV DECREASED GLUCOSE; Start 12/18/18 at 13:00 Dextrose (D50w Syringe) 50 ml Q15M PRN IV DECREASED GLUCOSE Last administered on 12/22/18 07:09; Admin Dose 50 ML; Start 12/18/18 at 13:00 Glucagon (Glucagen) 1 mg Q15M PRN IM DECREASED GLUCOSE; Start 12/18/18 at 13:00 Glucose (Glutose) 15 gm Q15M PRN BUCCAL DECREASED GLUCOSE; Start 12/18/18 at 13:00 Epoetin Josias-epbx (Retacrit (Esrd)) 8,000 unit MoWeFr@1700 SC Last administered on 12/27/18 17:43; Admin Dose 8,000 UNIT; Start 12/18/18 at 17:00 Levofloxacin (Levaquin) 500 mg Q48H PO Last administered on 12/28/18 07:48; Admin Dose 500 MG; Start 12/20/18 at 08:00 Povidone Iodine (Povidone-Iodine) 1 applic BID TOP Last administered on 12/28/18 08:30; Admin Dose 1 APPLIC; Start 12/18/18 at 21:00 Sodium Hypochlorite (Dakins Diluted ()) 1 applic BID TP Last administered on 12/28/18 08:30; Admin Dose 1 APPLIC; Start 12/18/18 at 21:00 Multi-Ingredient Ointment (Eucerin Cream) 1 applic DAILY TOP Last administered on 12/28/18 08:30; Admin Dose 1 APPLIC; Start 12/19/18 at 10:28 Ondansetron HCl (Zofran Inj) 4 mg Q6H PRN IV NAUSEA AND/OR VOMITING Last administered on 12/23/18 05:05; Admin Dose 4 MG; Start 12/21/18 at 13:30 Amlodipine Besylate (Norvasc) 5 mg DAILY PO Last administered on 12/28/18 0 8:23; Admin Dose 5 MG; Start 12/23/18 at 09:00 Lisinopril (Zestril) 40 mg DAILY PO Last administered on 12/28/18 08:23; Admin Dose 40 MG; Start 12/23/18 at 09:00 Linagliptin (Tradjenta) 5 mg DAILY PO Last administered on 12/28/18 08:22; Admin Dose 5 MG; Start 12/22/18 at 14:30 Bromocriptine Mesylate (Parlodel) 2.5 mg QHS PO Last administered on 12/27/18 20:21; Admin Dose 2.5 MG; Start 12/22/18 at 21:00 Diagnostic Test (Pha) (Accu-Chek) 1 ea 2 HOURS AFTER MEALS XX Last administered on 12/28/18 14:16; Admin Dose 1 EA; Start 12/22/18 at 20:00 Diagnostic Test (Pha) (Accu-Chek) 1 ea AC MEALS XX Last administered on 12/28/18 11:35; Admin Dose 1 EA; Start 12/22/18 at 17:30 Vancomycin HCl 250 ml @ 125 mls/hr Q96H IVPB Last administered on 12/27/18at 12:03; Admin Dose 125 MLS/HR; Start 12/23/18 at 12:00 Insulin Glargine (Lantus) 2 units DAILY@2000 SC Last administered on 12/27/18at 21:00; Admin Dose 2 UNITS; Start 12/24/18 at 20:00 Metoprolol Tartrate (Lopressor) 100 mg BID PO Last administered on 12/28/18at 08:23; Admin Dose 100 MG; Start 12/26/18 at 21:00 JODIE NAVA Dec 28, 2018 15:53
--- NOTE | 2018-12-28 17:09 | CONS ---
Assessment/Plan Assessment/Plan Hospital Course (Demo Recall) Type 2 DM c/b ESRD and osteomyelitis -FS at goal -continue lantus 2 units daily and tradjenta -continue mild dose novolog correction scale AC and HS -will monitor FS and adjust regimen accordingly Consultation Date/Type/Reason Admit Date/Time Dec 18, 2018 at 04:02 Initial Consult Date 12/22/18 Requesting Provider: ADRIANA JUSTICE Date/Time of Note DATE: 12/28/18 TIME: 17:08 24 HR Interval Summary Free Text/Dictation Patient seen and examined at bedside. FS at goal on current regimen. He offers no complaints Exam/Review of Systems Exam Vitals Vital Signs Date Temp Pulse Resp B/P (MAP) Pulse Ox O2 O2 Flow FiO2 Time Delivery Rate 12/28/18 93 16:01 12/28/18 99.0 20 157/68 95 Room Air 15:35 (97) Intake and Output 12/27/18 12/27/18 12/28/18 1515:00 23:00 07:00 IntakeIntake Total 430 ml 50 ml OutputOutput Total 2600 ml 150 ml BalanceBalance -2600 ml 430 ml -100 ml Exam General: Comfortable in appearance, not in acute distress. Skin appropriate for ethnicity Eye: Extraocular movements are intact, Normal conjunctiva. HENT: Normocephalic, atraumatic. Respiratory: Respirations are non-labored, Breath sounds are equal, Symmetrical chest wall expansion. Cardiovascular: S1, S2. No murmur. No LE edema Gastrointestinal: Soft, Non-tender, Non-distended, Normal bowel sounds. Integumentary: Warm to touch. Skin is dry and tight on examination Neurologic: Alert, Oriented. Cognition and Speech: Speech clear and coherent, Functional cognition intact. Psychiatric: Cooperative, Appropriate mood & affect. Results Result Diagram: 12/28/18 0502 12/25/18 0518 Results 24hrs Laboratory Tests Test 12/27/18 17:40 12/27/18 20:18 12/28/18 02:11 12/28/18 05:02 Bedside Glucose 105 172 126 White Blood Count 9.4 # Red Blood Count 3.26 #L Hemoglobin 9.2 L Hematocrit 29.6 L Mean Corpuscular 90.8 Volume Mean Corpuscular 28.2 L Hemoglobin Mean Corpuscular 31.1 L Hemoglobin Concent Red Cell 16.2 H Distribution Width Platelet Count 335 Mean Platelet Volume 11.0 H Immature 0.200 Granulocytes % Neutrophils % 72.7 Lymphocytes % 9.2 L Monocytes % 16.5 H Eosinophils % 0.7 Basophils % 0.7 Nucleated Red Blood 0.0 Cells % Immature 0.020 Granulocytes # Neutrophils # 6.8 Lymphocytes # 0.9 Monocytes # 1.6 H Eosinophils # 0.1 Basophils # 0.1 Nucleated Red Blood 0.0 Cells # Test 12/28/18 07:33 12/28/18 11:50 Bedside Glucose 81 169 Medications Medication Current Medications Vancomycin HCl (Vanco Iv Per Pharmacy) VANCOMYCIN PER PHARMACY PER PROTOCOL XX ; Start 12/18/18 at 09:30 Hydralazine HCl (Apresoline) 20 mg Q4 PRN IV HIGH BLOOD Last administered on 12/21/18 03:13; Admin Dose 20 MG; Start 12/18/18 at 09:30 Acetaminophen (Tylenol Tab) 650 mg Q4H PRN PO MILD PAIN(1-3)OR ELEVATED TEMP; Start 12/18/18 at 09:30 Acetaminophen/ Hydrocodone Bitart ([place] (5/325)) 1 tab Q4H PRN PO MODERATE PAIN LEVEL 4-6 Last administered on 12/22/18at 00:00; Admin Dose 1 TAB; Start 12/18/18 at 09:30 Insulin Aspart (Novolog Insulin Pen) NOVOLOG *MILD* ALGORITHM WITH MEALS BEDTIME SC Last administered on 12/28/18 12:22; Admin Dose 1 UNIT; Start 12/18/18 at 12:00 Aspirin (Halfprin) 81 mg DAILY PO Last administered on 12/28/18 08:22; Admin Dose 81 MG; Start 12/18/18 at 09:30 Atorvastatin Calcium (Lipitor) 80 mg QHS PO Last administered on 12/27/18 20:20; Admin Dose 80 MG; Start 12/18/18 at 21:00 Baclofen (Lioresal) 10 mg TID PO Last administered on 12/28/18 12:21; Admin Dose 10 MG; Start 12/18/18 at 13:00 Clopidogrel Bisulfate (plaVIX) 75 mg DAILY PO Last administered on 12/28/18 08:22; Admin Dose 75 MG; Start 12/18/18 at 09:30 Multivit/Ca Carb/ B Cmplx/FA/Prenat (Amarilis-Christina) 1 tab DAILY PO Last administered on 12/28/18 08:22; Admin Dose 1 TAB; Start 12/18/18 at 09:30 Mirtazapine (Remeron) 15 mg HS PO Last administered on 12/27/18 20:21; Admin Dose 15 MG; Start 12/18/18 at 21:00 Paroxetine HCl (Paxil) 10 mg DAILY PO Last administered on 12/28/18 08:22; Admin Dose 10 MG; Start 12/18/18 at 09:30 Zinc Sulfate (Zinc Sulfate) 220 mg DAILY PO Last administered on 12/28/18 08:22; Admin Dose 220 MG; Start 12/18/18 at 09:30 Sevelamer Carbonate (Renvela) 800 mg WITH MEALS PO Last administered on 12/28/18 12:21; Admin Dose 800 MG; Start 12/18/18 at 11:30 Diagnostic Test (Pha) (Accu-Chek) 1 ea 02 XX Last administered on 12/28/18 02:03; Admin Dose 1 EA; Start 12/19/18 at 02:00 Miscellaneous Information 1 ea NOTE XX ; Start 12/18/18 at 13:00 Glucose (Glutose) 15 gm Q15M PRN PO DECREASED GLUCOSE Last administered on 22:39; Admin Dose 15 GM; Start 12/18/18 at 13:00 Glucose (Glutose) 22.5 gm Q15M PRN PO DECREASED GLUCOSE Last administered on 12/19/18 23:35; Admin Dose 22.5 GM; Start 12/18/18 at 13:00 Dextrose (D50w Syringe) 25 ml Q15M PRN IV DECREASED GLUCOSE; Start 12/18/18 at 13:00 Dextrose (D50w Syringe) 50 ml Q15M PRN IV DECREASED GLUCOSE Last administered on 12/22/18 07:09; Admin Dose 50 ML; Start 12/18/18 at 13:00 Glucagon (Glucagen) 1 mg Q15M PRN IM DECREASED GLUCOSE; Start 12/18/18 at 13:00 Glucose (Glutose) 15 gm Q15M PRN BUCCAL DECREASED GLUCOSE; Start 12/18/18 at 13:00 Epoetin Josias-epbx (Retacrit (Esrd)) 8,000 unit MoWeFr@1700 SC Last administered on 12/27/18 17:43; Admin Dose 8,000 UNIT; Start 12/18/18 at 17:00 Levofloxacin (Levaquin) 500 mg Q48H PO Last administered on 12/28/18 07:48; Admin Dose 500 MG; Start 12/20/18 at 08:00 Povidone Iodine (Povidone-Iodine) 1 applic BID TOP Last administered on 12/28/18 08:30; Admin Dose 1 APPLIC; Start 12/18/18 at 21:00 Sodium Hypochlorite (Dakins Diluted (40)) 1 applic BID TP Last administered on 12/28/18 08:30; Admin Dose 1 APPLIC; Start 12/18/18 at 21:00 Multi-Ingredient Ointment (Eucerin Cream) 1 applic DAILY TOP Last administered on 12/28/18 08:30; Admin Dose 1 APPLIC; Start 12/19/18 at 10:28 Ondansetron HCl (Zofran Inj) 4 mg Q6H PRN IV NAUSEA AND/OR VOMITING Last administered on 12/23/18 05:05; Admin Dose 4 MG; Start 12/21/18 at 13:30 Amlodipine Besylate (Norvasc) 5 mg DAILY PO Last administered on 12/28/18 08:23; Admin Dose 5 MG; Start 12/23/18 at 09:00 Lisinopril (Zestril) 40 mg DAILY PO Last administered on 12/28/18 08:23; Admin Dose 40 MG; Start 12/23/18 at 09:00 Linagliptin (Tradjenta) 5 mg DAILY PO Last administered on 12/28/18 08:22; Admin Dose 5 MG; Start 12/22/18 at 14:30 Bromocriptine Mesylate (Parlodel) 2.5 mg QHS PO Last administered on 12/27/18 20:21; Admin Dose 2.5 MG; Start 12/22/18 at 21:00 Diagnostic Test (Pha) (Accu-Chek) 1 ea 2 HOURS AFTER MEALS XX Last administered on 12/28/18 14:16; Admin Dose 1 EA; Start 12/22/18 at 20:00 Diagnostic Test (Pha) (Accu-Chek) 1 ea AC MEALS XX Last administered on 12/28/18 11:35; Admin Dose 1 EA; Start 12/22/18 at 17:30 Vancomycin HCl 250 ml @ 125 mls/hr Q96H IVPB Last administered on 12/27/18 12:03; Admin Dose 125 MLS/HR; Start 12/23/18 at 12:00 Insulin Glargine (Lantus) 2 units DAILY@2000 SC Last administered on 12/27/18 21:00; Admin Dose 2 UNITS; Start 12/24/18 at 20:00 Metoprolol Tartrate (Lopressor) 100 mg BID PO Last administered on 12/28/18 08:23; Admin Dose 100 MG; Start 12/26/18 at 21:00 DENIS LUKE MD Dec 28, 2018 17:09
[2018-12-28] MEDS: ATORVASTATIN 80 MG TAB PO SCH (20:18)
[2018-12-28] MEDS: BROMOCRIPTINE 2.5 MG TAB PO SCH (20:20)
[2018-12-28] MEDS: MIRTAZAPINE 15 MG TAB PO SCH (20:20)
[2018-12-28] MEDS: INSULIN GLARGINE [LANTus] (100 UNITS/ML) SYG SC SCH (20:32)
[2018-12-29] VITALS (24 sets, daily range): BP systolic 115–190; BP diastolic 57–117; PULSE 73–107; RESP 16–20
[2018-12-29] MEDS: ACCU-CHEK XX SCH ×7 (02:46→20:33)
--- NOTE | 2018-12-29 05:10 | EN ---
Date/Time of Note Date/Time of Note DATE: 12/29/18 TIME: 05:08 Event Note Medicine Medicine Event Note [employer] Note Called at approx: 4:56 AM Called for altered mental status Patient seen and examined at the bedside. Patient looks to be in a daze. Showing slight movements of the face but not tracking. On deep sternal rub patient would move all of his extremities to pain and would moan with slight movement in the left lower extremity which is baseline for him. Temperature 98.7 blood pressure 146/78 respirations 16 SPO2 96% on 2 L. Patient's abdomen was palpated which appear to be slightly firm. Her abdominal examination patient did have vomitus nonbloody. An NG tube was placed as he continued to vomit to protect his airway given his altered mental status. Vital signs: See above General: Patient currently sitting upright in bed he appears altered, he does react to pain, he is mumbling which is also his baseline CVS: Regular rate rhythm Lungs: Coarse breath sounds bilaterally Abdomen: Firm, no rebound or guarding Neuro: Awake but altered, moving all 4 extremities to sternal rub, though the left lower extremity minimal movement however this is chronic according to the nurse for this patient. Assessment and plan: #1 Acute encephalopathy: Likely toxic metabolic. Possibly secondary to a uremia, sepsis. Stat CT of the brain without contrast, CBC BMP lactic acid ammonia level and blood cultures x2. Patient is otherwise hemodynamically stable. Provided that the CT brain is negative for any acute ab normalities patient I feel is stable to be further monitor on telemetry. #2 vomiting: Secondary to underlying sepsis, uremia versus other. We will also order a CT of the abdomen pelvis without contrast. NG tube is inserted for decompression as well as to protect the airway to prevent aspiration given his encephalopathy. We will check CBC BMP and lactic acid, blood cultures x2. Greater than 35 minutes critical care time was spent on the care management this patient. Primary RN was asked to contact the primary doctor to update them regarding the patient's condition and for any further orders. GRIFFIN RODRIGUEZ Dec 29, 2018 05:10
[2018-12-29] MEDS ORDERED: ONDANSETRON 4 MG INJ IV ONE (05:14)
[2018-12-29] MEDS ORDERED: FAMOTIDINE 20 MG INJ IV ONE (07:00)
[2018-12-29] MEDS ORDERED: FAMOTIDINE IV 40 MG in SOD CHLORIDE 0.9% 250 ML IV SCH (07:00)
[2018-12-29] MEDS: SEVELAMER CARBONATE 800 MG TABLET PO SCH ×3 (08:00→17:27)
[2018-12-29] MEDS: MULTIVIT/CA CARB/B CMPLX/FA TAB PO SCH (08:21)
[2018-12-29] MEDS: AMLODIPINE 5 MG TAB PO SCH (08:21)
[2018-12-29] MEDS: ASPIRIN (EC) 81 MG TAB PO SCH (08:21)
[2018-12-29] MEDS: BACLOFEN 10 MG TAB PO SCH ×3 (08:21→20:39)
[2018-12-29] MEDS: PAROXETINE 10 MG TAB PO SCH (08:21)
[2018-12-29] MEDS: ZINC SULFATE 220 MG CAP PO SCH (08:21)
[2018-12-29] MEDS: CLOPIDOGREL 75 MG TAB PO SCH (08:21)
[2018-12-29] MEDS: METOPROLOL 100 MG TAB PO SCH ×2 (08:21→20:40)
[2018-12-29] MEDS: LISINOPRIL 20 MG TAB PO SCH (08:22)
[2018-12-29] MEDS: LINAGLIPTIN 5 MG TABLET PO SCH (08:22)
[2018-12-29] MEDS: EUCERIN 113 GM CR TOP SCH (08:29)
[2018-12-29] MEDS: POVIDONE IODINE 10% 28.4 GM OINT TOP SCH ×2 (08:29→20:41)
[2018-12-29] MEDS: DAKINS 0.0125%(1/40) 473 ML SOLUTION TP SCH ×2 (08:29→20:41)
[2018-12-29] MEDS: INSULIN ASPART [NOVOLOG] 3 ML PEN SC SCH ×4 (08:32→20:41)
--- NOTE | 2018-12-29 10:40 | PN ---
Date/Time of Note Date/Time of Note DATE: 12/29/18 TIME: 10:39 Assessment/Plan VTE Prophylaxis Risk score (from Ns)>0 risk: 5 SCD applied (from [facility]): No SCD contraindicated: other Pharmacological prophylaxis: LMWH Lines/Catheters IV Catheter Type (from [facility]): [place] Urinary Cath still in place: No Assessment/Plan Hospital Course -Gram-positive cocci in clusters bacteremia, continue antibiotics per ID. Dr. Giles is following in infection disease consultation. -S/p sepsis due to abdominal wall abscess. -Abdominal wall cellulitis/abscess, G-tube DC'd. -Sacral wound, continue wound care per wound care recommendations. -Right buttock abscess, status post I&D by Dr. Carlisle on 12/04/18. Continue wound care per surgical recommendations. -G-tube leak on admission, G-tube DC'd. Patient status post G-tube placement. Dr. Bush is following in gastroenterology consultation. -Hyperkalemia and acute kidney injury, continue IV fluids. Dr. King is follo wing in nephrology consultation. -Ventilator dependent respiratory failure with tracheostomy. -Tachycardia, resolved. is following in cardiology consultation. -Pulmonary fibrosis -COPD -Diabetes mellitus, continue Lantus and NovoLog -Diabetes insipidus, continue desmopressin -Dislocation of the glenohumeral joint,s/p reduced with manipulation by Dr Arango, orthopedic surgery. Continue shoulder immobilizer for the right shoulder for least for about 3 weeks to prevent immediate recurrent dislocations. Result Diagram: 12/29/18 0510 12/29/18 0514 Results 24hrs Laboratory Tests Test 12/28/18 11:50 12/28/18 17:25 12/28/18 20:16 12/29/18 02:42 Bedside Glucose 169 171 247 H 237 H Test 12/29/18 04:48 12/29/18 04:59 12/29/18 05:10 12/29/18 05:14 Bedside Glucose 233 H Blood Gas Blood arterial Specimen Source Arterial Blood 12/29/2018 5:04:3 Date Drawn 3 AM Arterial Blood pH 7.390 (Temp corrected) Arterial Blood 42.5 pCO2 (Temp correct) Arterial Blood 62.2 L pO2 (Temp corrected) Arterial Blood 25.1 HCO3 Arterial Blood 0.1 Base Excess Arterial Blood 88.7 L Oxygen Saturation Mando Test ACCEPTAB Arterial Blood Right Radial Gas Puncture Site Arterial 1.4 Blood Carboxyhemo globin Arterial Blood 0.4 Methemoglobin Blood Gas A-a O2 80.1 H Differential Oxyhemoglobin 87.1 L Percent Blood Gas 37.0 Temperature Blood Gas NASAL CANNULA Modality FiO2 27.0 Blood Gas LW Notified Whom Blood Gas 12/29/2018 5:15:0 Notified Time 8 AM White Blood Count 10.0 Red Blood Count 2.81 L Hemoglobin 8.1 L Hematocrit 25.3 L Mean Corpuscular 90.0 Volume Mean Corpuscular 28.8 L Hemoglobin Mean Corpuscular 32.0 Hemoglobin Concen t Red Cell 16.2 H Distribution Width Platelet Count 297 Mean Platelet 10.8 H Volume Immature 0.500 H Granulocytes % Neutrophils % 70.8 Lymphocytes % 15.2 Monocytes % 13.0 H Eosinophils % 0.0 Basophils % 0.5 Nucleated Red 0.0 Blood Cells % Immature 0.050 H Granulocytes # Neutrophils # 7.1 Lymphocytes # 1.5 Monocytes # 1.3 H Eosinophils # 0.0 Basophils # 0.1 Nucleated Red 0.0 Blood Cells # Ammonia < 9 L Sodium Level 138 Potassium Level 6.0 H Chloride Level 102 Carbon Dioxide 24 Level Anion Gap 12 Blood Urea 55 H Nitrogen Creatinine 9.09 H Est Glomerular 7 L Filtrat Rate mL/min Glucose Level 196 Calcium Level 8.9 Test 12/29/18 08:08 Bedside Glucose 203 Subjective 24 Hr Interval Summary Free Text/Dictation Patient has no complaints. Exam/Review of Systems Exam Vitals Vital Signs Date Temp Pulse Resp B/P (MAP) Pulse Ox O2 O2 Flow FiO2 Time Delivery Rate 12/29/18 77 08:01 12/29/18 Nasal 3.0 08:00 Cannula 12/29/18 97.3 16 126/67 99 07:31 (86) Intake and Output 12/28/18 12/28/18 12/29/18 1515:00 23:00 07:00 IntakeIntake Total 680 ml 50 ml BalanceBalance 680 ml 50 ml Constitutional: well developed Head: normocephalic, atraumatic Neck: supple Respiratory: diminished breath sounds Cardiovascular: regular rate and rhythm Gastrointestinal: soft, non-tender Extremities: normal pulses Results Results 24hrs Laboratory Tests Test 12/28/18 11:50 12/28/18 17:25 12/28/18 20:16 12/29/18 02:42 Bedside Glucose 169 171 247 H 237 H Test 12/29/18 04:48 12/29/18 04:59 12/29/18 05:10 12/29/18 05:14 Bedside Glucose 233 H Blood Gas Blood arterial Specimen Source Arterial Blood 12/29/2018 5:04:3 Date Drawn 3 AM Arterial Blood pH 7.390 (Temp corrected) Arterial Blood 42.5 pCO2 (Temp correct) Arterial Blood 62.2 L pO2 (Temp corrected) Arterial Blood 25.1 HCO3 Arterial Blood 0.1 Base Excess Arterial Blood 88.7 L Oxygen Saturation Mando Test ACCEPTAB Arterial Blood Right Radial Gas Puncture Site Arterial 1.4 Blood Carboxyhemo globin Arterial Blood 0.4 Methemoglobin Blood Gas A-a O2 80.1 H Differential Oxyhemoglobin 87.1 L Percent Blood Gas 37.0 Temperature Blood Gas NASAL CANNULA Modality FiO2 27.0 Blood Gas LW Notified Whom Blood Gas 12/29/2018 5:15:0 Notified Time 8 AM White Blood Count 10.0 Red Blood Count 2.81 L Hemoglobin 8.1 L Hematocrit 25.3 L Mean Corpuscular 90.0 Volume Mean Corpuscular 28.8 L Hemoglobin Mean Corpuscular 32.0 Hemoglobin Concen t Red Cell 16.2 H Distribution Width Platelet Count 297 Mean Platelet 10.8 H Volume Immature 0.500 H Granulocytes % Neutrophils % 70.8 Lymphocytes % 15.2 Monocytes % 13.0 H Eosinophils % 0.0 Basophils % 0.5 Nucleated Red 0.0 Blood Cells % Immature 0.050 H Granulocytes # Neutrophils # 7.1 Lymphocytes # 1.5 Monocytes # 1.3 H Eosinophils # 0.0 Basophils # 0.1 Nucleated Red 0.0 Blood Cells # Ammonia < 9 L Sodium Level 138 Potassium Level 6.0 H Chloride Level 102 Carbon Dioxide 24 Level Anion Gap 12 Blood Urea 55 H Nitrogen Creatinine 9.09 H Est Glomerular 7 L Filtrat Rate mL/min Glucose Level 196 Calcium Level 8.9 Test 12/29/18 08:08 Bedside Glucose 203 Medications Medication Current Medications Vancomycin HCl (Vanco Iv Per Pharmacy) VANCOMYCIN PER PHARMACY PER PROTOCOL XX ; Start 12/18/18 at 09:30 Hydralazine HCl (Apresoline) 20 mg Q4 PRN IV HIGH BLOOD Last administered on 12/21/18 03:13; Admin Dose 20 MG; Start 12/18/18 at 09:30 Acetaminophen (Tylenol Tab) 650 mg Q4H PRN PO MILD PAIN(1-3)OR ELEVATED TEMP; Start 12/18/18 at 09:30 Acetaminophen/ Hydrocodone Bitart ([place] (5/325)) 1 tab Q4H PRN PO MODERATE PAIN LEVEL 4-6 Last administered on 12/22/18 00:00; Admin Dose 1 TAB; Start 12/18/18 at 09:30 Insulin Aspart (Novolog Insulin Pen) NOVOLOG *MILD* ALGORITHM WITH MEALS BEDTIME SC Last administered on 12/29/18 08:32; Admin Dose 2 UNIT; Start 12/18/18 at 12:00 Aspirin (Halfprin) 81 mg DAILY PO Last administered on 12/28/18 08:22; Admin Dose 81 MG; Start 12/18/18 at 09:30 Atorvastatin Calcium (Lipitor) 80 mg QHS PO Last administered on 12/28/18 20:18; Admin Dose 80 MG; Start 12/18/18 at 21:00 Baclofen (Lioresal) 10 mg TID PO Last administered on 12/28/18 20:18; Admin Dose 10 MG; Start 12/18/18 at 13:00 Clopidogrel Bisulfate (plaVIX) 75 mg DAILY PO Last administered on 12/28/18 08:22; Admin Dose 75 MG; Start 12/18/18 at 09:30 Multivit/Ca Carb/ B Cmplx/FA/Prenat (Amarilis-Christina) 1 tab DAILY PO Last administered on 12/28/18 08:22; Admin Dose 1 TAB; Start 12/18/18 at 09:30 Mirtazapine (Remeron) 15 mg HS PO Last administered on 12/28/18 20:20; Admin Dose 15 MG; Start 12/18/18 at 21:00 Paroxetine HCl (Paxil) 10 mg DAILY PO Last administered on 12/28/18 08:22; Admin Dose 10 MG; Start 12/18/18 at 09:30 Zinc Sulfate (Zinc Sulfate) 220 mg DAILY PO Last administered on 12/28/18 08:22; Admin Dose 220 MG; Start 12/18/18 at 09:30 Sevelamer Carbonate (Renvela) 800 mg WITH MEALS PO Last administered on 12/28/18 17:28; Admin Dose 800 MG; Start 12/18/18 at 11:30 Diagnostic Test (Pha) (Accu-Chek) 1 ea 02 XX Last administered on 12/29/18 02:46; Admin Dose 1 EA; Start 12/19/18 at 02:00 Miscellaneous Information 1 ea NOTE XX ; Start 12/18/18 at 13:00 Glucose (Glutose) 15 gm Q15M PRN PO DECREASED GLUCOSE Last administered on 12/19/18 22:39; Admin Dose 15 GM; Start 12/18/18 at 13:00 Glucose (Glutose) 22.5 gm Q15M PRN PO DECREASED GLUCOSE Last administered on 12/19/18 23:35; Admin Dose 22.5 GM; Start 12/18/18 at 13:00 Dextrose (D50w Syringe) 25 ml Q15M PRN IV DECREASED GLUCOSE; Start 12/18/18 at 13:00 Dextrose (D50w Syringe) 50 ml Q15M PRN IV DECREASED GLUCOSE Last administered on 12/22/18 07:09; Admin Dose 50 ML; Start 12/18/18 at 13:00 Glucagon (Glucagen) 1 mg Q15M PRN IM DECREASED GLUCOSE; Start 12/18/18 at 13:00 Glucose (Glutose) 15 gm Q15M PRN BUCCAL DECREASED GLUCOSE; Start 12/18/18 at 13:00 Epoetin Josias-epbx (Retacrit (Esrd)) 8,000 unit MoWeFr@1700 SC Last administered on 12/27/18at 17:43; Admin Dose 8,000 UNIT; Start 12/18/18 at 17:00 Levofloxacin (Levaquin) 500 mg Q48H PO Last administered on 12/28/18 07:48; Admin Dose 500 MG; Start 12/20/18 at 08:00 Povidone Iodine (Povidone-Iodine) 1 applic BID TOP Last administered on 12/29/18 08:29; Admin Dose 1 APPLIC; Start 12/18/18 at 21:00 Sodium Hypochlorite (Dakins Diluted (40)) 1 applic BID TP Last administered on 12/29/18 08:29; Admin Dose 1 APPLIC; Start 12/18/18 at 21:00 Multi-Ingredient Ointment (Eucerin Cream) 1 applic DAILY TOP Last administered on 12/29/18 08:29; Admin Dose 1 APPLIC; Start 12/19/18 at 10:28 Ondansetron HCl (Zofran Inj) 4 mg Q6H PRN IV NAUSEA AND/OR VOMITING Last admini stered on 12/23/18 05:05; Admin Dose 4 MG; Start 12/21/18 at 13:30 Amlodipine Besylate (Norvasc) 5 mg DAILY PO Last administered on 12/28/18 08:23; Admin Dose 5 MG; Start 12/23/18 at 09:00 Lisinopril (Zestril) 40 mg DAILY PO Last administered on 12/28/18 08:23; Admin Dose 40 MG; Start 12/23/18 at 09:00 Linagliptin (Tradjenta) 5 mg DAILY PO Last administered on 12/28/18 08:22; Admin Dose 5 MG; Start 12/22/18 at 14:30 Bromocriptine Mesylate (Parlodel) 2.5 mg QHS PO Last administered on 12/28/18 20:20; Admin Dose 2.5 MG; Start 12/22/18 at 21:00 Diagnostic Test (Pha) (Accu-Chek) 1 ea 2 HOURS AFTER MEALS XX Last administered on 12/29/18 10:07; Admin Dose 1 EA; Start 12/22/18 at 20:00 Diagnostic Test (Pha) (Accu-Chek) 1 ea AC MEALS XX Last administered on 12/29/18 07:00; Admin Dose 1 EA; Start 12/22/18 at 17:30 Vancomycin HCl 250 ml @ 125 mls/hr Q96H IVPB Last administered on 12/27/18 12:03; Admin Dose 125 MLS/HR; Start 12/23/18 at 12:00 Metoprolol Tartrate (Lopressor) 100 mg BID PO Last administered on 12/28/18 20:20; Admin Dose 100 MG; Start 12/26/18 at 21:00 Famotidine (Pepcid Iv) 20 mg BID IV ; Start 12/29/18 at 21:00 Insulin Glargine (Lantus) 4 units DAILY@2000 SC ; Start 12/29/18 at 20:00 UNRULY ANTONY 16, 2019 10:40
--- NOTE | 2018-12-29 13:16 | CONS ---
Assessment/Plan Assessment/Plan Hospital Course (Demo Recall) 1. End-stage renal disease. HD today 2. Hyperkalemia: hd today with low K bath 3. Anemia. Continue to monitor hemoglobin and hematocrit levels. Continue Epogen. 4. Mineral bone disorder, monitor calcium and phosphorus levels. 5. Diabetic foot ulcer. Continue wound care and abx per ID Follow up with podiatry. 6. Diabetes. Continue current insulin regimen. 7. History of cerebrovascular accident. Continue medical management. 8. Encephalopathy, etiology is toxic metabolic, improving. 9. Hypertension. Continue current blood pressure regimen. 10. Dyslipidemia. Continue statin therapy. Consultation Date/Type/Reason Admit Date/Time Dec 18, 2018 at 04:02 Initial Consult Date 12/22/18 Requesting Provider: ADRIANA JUSTICE Date/Time of Note DATE: 12/29/18 TIME: 13:15 24 HR Interval Summary Free Text/Dictation denies n/v or shortness of breath d/w rn gen nad cv rrr pulm ctab abd soft, nd, nt +bs ext: no edema Exam/Review of Systems Exam Vitals Vital Signs Date Temp Pulse Resp B/P (MAP) Pulse Ox O2 O2 Flow FiO2 Time Delivery Rate 12/29/18 86 12:01 12/29/18 97.7 115/77 99 Nasal 11:23 (90) Cannula 12/29/18 3.0 08:00 12/29/18 16 07:31 Intake and Output 12/28/18 12/28/18 12/29/18 1515:00 23:00 07:00 IntakeIntake Total 680 ml 50 ml BalanceBalance 680 ml 50 ml Results Result Diagram: 12/29/18 1034 12/29/18 0514 Results 24hrs Laboratory Tests Test 12/28/18 17:25 12/28/18 20:16 12/29/18 02:42 12/29/18 04:48 Bedside Glucose 171 247 H 237 H 233 H Test 12/29/18 04:59 12/29/18 05:10 12/29/18 05:14 12/29/18 08:08 Blood Gas Blood arterial Specimen Source Arterial Blood 12/29/2018 5:04:3 Date Drawn 3 AM Arterial Blood pH 7.390 (Temp corrected) Arterial Blood 42.5 pCO2 (Temp correct) Arterial Blood 62.2 L pO2 (Temp corrected) Arterial Blood 25.1 HCO3 Arterial Blood 0.1 Base Excess Arterial Blood 88.7 L Oxygen Saturation Mando Test ACCEPTAB Arterial Blood Right Radial Gas Puncture Site Arterial 1.4 Blood Carboxyhemo globin Arterial Blood 0.4 Methemoglobin Blood Gas A-a O2 80.1 H Differential Oxyhemoglobin 87.1 L Percent Blood Gas 37.0 Temperature Blood Gas NASAL CANNULA Modality FiO2 27.0 Blood Gas LW Notified Whom Blood Gas 12/29/2018 5:15:0 Notified Time 8 AM White Blood Count 10.0 Red Blood Count 2.81 L Hemoglobin 8.1 L Hematocrit 25.3 L Mean Corpuscular 90.0 Volume Mean Corpuscular 28.8 L Hemoglobin Mean Corpuscular 32.0 Hemoglobin Concen t Red Cell 16.2 H Distribution Width Platelet Count 297 Mean Platelet 10.8 H Volume Immature 0.500 H Granulocytes % Neutrophils % 70.8 Lymphocytes % 15.2 Monocytes % 13.0 H Eosinophils % 0.0 Basophils % 0.5 Nucleated Red 0.0 Blood Cells % Immature 0.050 H Granulocytes # Neutrophils # 7.1 Lymphocytes # 1.5 Monocytes # 1.3 H Eosinophils # 0.0 Basophils # 0.1 Nucleated Red 0.0 Blood Cells # Ammonia < 9 L Sodium Level 138 Potassium Level 6.0 H Chloride Level 102 Carbon Dioxide 24 Level Anion Gap 12 Blood Urea 55 H Nitrogen Creatinine 9.09 H Est Glomerular 7 L Filtrat Rate mL/min Glucose Level 196 Calcium Level 8.9 Bedside Glucose 203 Test 12/29/18 10:34 White Blood Count 9.1 Red Blood Count 2.69 L Hemoglobin 7.7 L Hematocrit 24.3 L Mean Corpuscular 90.3 Volume Mean Corpuscular 28.6 L Hemoglobin Mean Corpuscular 31.7 L Hemoglobin Concen t Red Cell 16.0 H Distribution Width Platelet Count 284 Mean Platelet 10.5 H Volume Immature 0.300 Granulocytes % Neutrophils % 75.3 Lymphocytes % 10.7 L Monocytes % 13.2 H Eosinophils % 0.1 Basophils % 0.4 Nucleated Red 0.0 Blood Cells % Immature 0.030 Granulocytes # Neutrophils # 6.8 Lymphocytes # 1.0 Monocytes # 1.2 H Eosinophils # 0.0 Basophils # 0.0 Nucleated Red 0.0 Blood Cells # Medications Medication Current Medications Vancomycin HCl (Vanco Iv Per Pharmacy) VANCOMYCIN PER PHARMACY PER PROTOCOL XX ; Start 12/18/18 at 09:30 Hydralazine HCl (Apresoline) 20 mg Q4 PRN IV HIGH BLOOD Last administered on 12/21/18 03:13; Admin Dose 20 MG; Start 12/18/18 at 09:30 Acetaminophen (Tylenol Tab) 650 mg Q4H PRN PO MILD PAIN(1-3)OR ELEVATED TEMP; Start 12/18/18 at 09:30 Acetaminophen/ Hydrocodone Bitart ([place] (5/325)) 1 tab Q4H PRN PO MODERATE PAIN LEVEL 4-6 Last administered on 12/22/18 00:00; Admin Dose 1 TAB; Start at 09:30 Insulin Aspart (Novolog Insulin Pen) NOVOLOG *MILD* ALGORITHM WITH MEALS BEDTIME SC Last administered on 12/29/18 08:32; Admin Dose 2 UNIT; Start 12/18/18 at 12:00 Aspirin (Halfprin) 81 mg DAILY PO Last administered on 12/28/18 08:22; Admin Dose 81 MG; Start 12/18/18 at 09:30 Atorvastatin Calcium (Lipitor) 80 mg QHS PO Last administered on 12/28/18 20:18; Admin Dose 80 MG; Start 12/18/18 at 21:00 Baclofen (Lioresal) 10 mg TID PO Last administered on 12/28/18 20:18; Admin Dose 10 MG; Start 12/18/18 at 13:00 Clopidogrel Bisulfate (plaVIX) 75 mg DAILY PO Last administered on 12/28/18 08:22; Admin Dose 75 MG; Start 12/18/18 at 09:30 Multivit/Ca Carb/ B Cmplx/FA/Prenat (Amarilis-Christina) 1 tab DAILY PO Last administered on 12/28/18 08:22; Admin Dose 1 TAB; Start 12/18/18 at 09:30 Mirtazapine (Remeron) 15 mg HS PO Last administered on 12/28/18 20:20; Admin Dose 15 MG; Start 12/18/18 at 21:00 Paroxetine HCl (Paxil) 10 mg DAILY PO Last administered on 12/28/18 08:22; Admin Dose 10 MG; Start 12/18/18 at 09:30 Zinc Sulfate (Zinc Sulfate) 220 mg DAILY PO Last administered on 12/28/18 08:22; Admin Dose 220 MG; Start 12/18/18 at 09:30 Sevelamer Carbonate (Renvela) 800 mg WITH MEALS PO Last administered on 12/28/18 17:28; Admin Dose 800 MG; Start 12/18/18 at 11:30 Diagnostic Test (Pha) (Accu-Chek) 1 ea 02 XX Last administered on 12/29/18 02:46; Admin Dose 1 EA; Start 12/19/18 at 02:00 Miscellaneous Information 1 ea NOTE XX ; Start 12/18/18 at 13:00 Glucose (Glutose) 15 gm Q15M PRN PO DECREASED GLUCOSE Last administered on 12/19/18 22:39; Admin Dose 15 GM; Start 12/18/18 at 13:00 Glucose (Glutose) 22.5 gm Q15M PRN PO DECREASED GLUCOSE Last administered on 12/19/18 23:35; Admin Dose 22.5 GM; Start 12/18/18 at 13:00 Dextrose (D50w Syringe) 25 ml Q15M PRN IV DECREASED GLUCOSE; Start 12/18/18 at 13:00 Dextrose (D50w Syringe) 50 ml Q15M PRN IV DECREASED GLUCOSE Last administered on 12/22/18 07:09; Admin Dose 50 ML; Start 12/18/18 at 13:00 Glucagon (Glucagen) 1 mg Q15M PRN IM DECREASED GLUCOSE; Start 12/18/18 at 13:00 Glucose (Glutose) 15 gm Q15M PRN BUCCAL DECREASED GLUCOSE; Start 12/18/18 at 13:00 Epoetin Josias-epbx (Retacrit (Esrd)) 8,000 unit MoWeFr@1700 SC Last administered on 12/27/18 17:43; Admin Dose 8,000 UNIT; Start 12/18/18 at 17:00 Levofloxacin (Levaquin) 500 mg Q48H PO Last administered on 12/28/18 07:48; Admin Dose 500 MG; Start 12/20/18 at 08:00 Povidone Iodine (Povidone-Iodine) 1 applic BID TOP Last administered on 12/29/18 08:29; Admin Dose 1 APPLIC; Start 12/18/18 at 21:00 Sodium Hypochlorite (Dakins Diluted (1/40)) 1 applic BID TP Last administered on 12/29/18 08:29; Admin Dose 1 APPLIC; Start 12/18/18 at 21:00 Multi-Ingredient Ointment (Eucerin Cream) 1 applic DAILY TOP Last administered on 12/29/18 08:29; Admin Dose 1 APPLIC; Start 12/19/18 at 10:28 Ondansetron HCl (Zofran Inj) 4 mg Q6H PRN IV NAUSEA AND/OR VOMITING Last ad ministered on 12/23/18 05:05; Admin Dose 4 MG; Start 12/21/18 at 13:30 Amlodipine Besylate (Norvasc) 5 mg DAILY PO Last administered on 12/28/18 08:23; Admin Dose 5 MG; Start 12/23/18 at 09:00 Lisinopril (Zestril) 40 mg DAILY PO Last administered on 12/28/18 08:23; Admin Dose 40 MG; Start 12/23/18 at 09:00 Linagliptin (Tradjenta) 5 mg DAILY PO Last administered on 12/28/18 08:22; Admin Dose 5 MG; Start 12/22/18 at 14:30 Bromocriptine Mesylate (Parlodel) 2.5 mg QHS PO Last administered on 12/28/18 20:20; Admin Dose 2.5 MG; Start 12/22/18 at 21:00 Diagnostic Test (Pha) (Accu-Chek) 1 ea 2 HOURS AFTER MEALS XX Last administered on 12/29/18 10:07; Admin Dose 1 EA; Start 12/22/18 at 20:00 Diagnostic Test (Pha) (Accu-Chek) 1 ea AC MEALS XX Last administered on 12/29/18 07:00; Admin Dose 1 EA; Start 12/22/18 at 17:30 Vancomycin HCl 250 ml @ 125 mls/hr Q96H IVPB Last administered on 12/27/18 12:03; Admin Dose 125 MLS/HR; Start 12/23/18 at 12:00 Metoprolol Tartrate (Lopressor) 100 mg BID PO Last administered on 12/28/18 20:20; Admin Dose 100 MG; Start 12/26/18 at 21:00 Famotidine (Pepcid Iv) 20 mg BID IV ; Start 12/29/18 at 21:00 Insulin Glargine (Lantus) 4 units DAILY@2000 SC ; Start 12/29/18 at 20:00 CADY PORTILLO MD Dec 29, 2018 13:16
--- NOTE | 2018-12-29 13:46 | CONS ---
Assessment/Plan Assessment/Plan Hospital Course (Demo Recall) Type 2 DM c/b ESRD and osteomyelitis -fasting hyperglycemia -increase lantus to 4 units sc daily -continue tradjenta -continue mild dose novolog correction scale AC and HS -will monitor FS and adjust regimen accordingly Consultation Date/Type/Reason Admit Date/Time Dec 18, 2018 at 04:02 Initial Consult Date 12/22/18 Requesting Provider: ADRIANA JUSTICE Date/Time of Note DATE: 12/29/18 TIME: 13:44 24 HR Interval Summary Free Text/Dictation Patient seen with family at bedside. He seems agitated and confused. Hyperglycemia noted Exam/Review of Systems Exam Vitals Vital Signs Date Temp Pulse Resp B/P (MAP) Pulse Ox O2 O2 Flow FiO2 Time Delivery Rate 12/29/18 86 12:01 12/29/18 97.7 115/77 99 Nasal 11:23 (90) Cannula 12/29/18 3.0 08:00 12/29/18 16 07:31 Intake and Output 12/28/18 12/28/18 12/29/18 1515:00 23:00 07:00 IntakeIntake Total 680 ml 50 ml BalanceBalance 680 ml 50 ml Exam General: Agitated in appearance. Skin appropriate for ethnicity Eye: Extraocular movements are intact, Normal conjunctiva. HENT: Normocephalic, atraumatic. Respiratory: Respirations are non-labored, Breath sounds are equal, Symmetrical chest wall expansion. Cardiovascular: S1, S2. No murmur. No LE edema Gastrointestinal: Soft, Non-distended, Normal bowel sounds. Integumentary: Warm to touch. Dry scaly skin. Neurologic: Alert and awake. Confused and agitated Results Result Diagram: 12/29/18 1034 12/29/18 0514 Results 24hrs Laboratory Tests Test 12/28/18 17:25 12/28/18 20:16 12/29/18 02:42 12/29/18 04:48 Bedside Glucose 171 247 H 237 H 233 H Test 12/29/18 04:59 12/29/18 05:10 12/29/18 05:14 12/29/18 08:08 Blood Gas Blood arterial Specimen Source Arterial Blood 12/29/2018 5:04:3 Date Drawn 3 AM Arterial Blood pH 7.390 (Temp corrected) Arterial Blood 42.5 pCO2 (Temp correct) Arterial Blood 62.2 L pO2 (Temp corrected) Arterial Blood 25.1 HCO3 Arterial Blood 0.1 Base Excess Arterial Blood 88.7 L Oxygen Saturation Mando Test ACCEPTAB Arterial Blood Right Radial Gas Puncture Site Arterial 1.4 Blood Carboxyhemo globin Arterial Blood 0.4 Methemoglobin Blood Gas A-a O2 80.1 H Differential Oxyhemoglobin 87.1 L Percent Blood Gas 37.0 Temperature Blood Gas NASAL CANNULA Modality FiO2 27.0 Blood Gas LW Notified Whom Blood Gas 12/29/2018 5:15:0 Notified Time 8 AM White Blood Count 10.0 Red Blood Count 2.81 L Hemoglobin 8.1 L Hematocrit 25.3 L Mean Corpuscular 90.0 Volume Mean Corpuscular 28.8 L Hemoglobin Mean Corpuscular 32.0 Hemoglobin Concen t Red Cell 16.2 H Distribution Width Platelet Count 297 Mean Platelet 10.8 H Volume Immature 0.500 H Granulocytes % Neutrophils % 70.8 Lymphocytes % 15.2 Monocytes % 13.0 H Eosinophils % 0.0 Basophils % 0.5 Nucleated Red 0.0 Blood Cells % Immature 0.050 H Granulocytes # Neutrophils # 7.1 Lymphocytes # 1.5 Monocytes # 1.3 H Eosinophils # 0.0 Basophils # 0.1 Nucleated Red 0.0 Blood Cells # Ammonia < 9 L Sodium Level 138 Potassium Level 6.0 H Chloride Level 102 Carbon Dioxide 24 Level Anion Gap 12 Blood Urea 55 H Nitrogen Creatinine 9.09 H Est Glomerular 7 L Filtrat Rate mL/min Glucose Level 196 Calcium Level 8.9 Bedside Glucose 203 Test 12/29/18 10:34 12/29/18 13:37 White Blood Count 9.1 Red Blood Count 2.69 L Hemoglobin 7.7 L Hematocrit 24.3 L Mean Corpuscular 90.3 Volume Mean Corpuscular 28.6 L Hemoglobin Mean Corpuscular 31.7 L Hemoglobin Concen t Red Cell 16.0 H Distribution Width Platelet Count 284 Mean Platelet 10.5 H Volume Immature 0.300 Granulocytes % Neutrophils % 75.3 Lymphocytes % 10.7 L Monocytes % 13.2 H Eosinophils % 0.1 Basophils % 0.4 Nucleated Red 0.0 Blood Cells % Immature 0.030 Granulocytes # Neutrophils # 6.8 Lymphocytes # 1.0 Monocytes # 1.2 H Eosinophils # 0.0 Basophils # 0.0 Nucleated Red 0.0 Blood Cells # Bedside Glucose 183 Medications Medication Current Medications Vancomycin HCl (Vanco Iv Per Pharmacy) VANCOMYCIN PER PHARMACY PER PROTOCOL XX ; Start 12/18/18 at 09:30 Hydralazine HCl (Apresoline) 20 mg Q4 PRN IV HIGH BLOOD Last administered on 12/21/18 03:13; Admin Dose 20 MG; Start 12/18/18 at 09:30 Acetaminophen (Tylenol Tab) 650 mg Q4H PRN PO MILD PAIN(1-3)OR ELEVATED TEMP; Start 12/18/18 at 09:30 Acetaminophen/ Hydrocodone Bitart ([place] (5/325)) 1 tab Q4H PRN PO MODERATE PAIN LEVEL 4-6 Last administered on 12/22/18 00:00; Admin Dose 1 TAB; Start 12/18/18 at 09:30 Insulin Aspart (Novolog Insulin Pen) NOVOLOG *MILD* ALGORITHM WITH MEALS BEDTIME SC Last administered on 12/29/18 08:32; Admin Dose 2 UNIT; Start 12/18/18 at 12:00 Aspirin (Halfprin) 81 mg DAILY PO Last administered on 12/28/18 08:22; Admin Dose 81 MG; Start 12/18/18 at 09:30 Atorvastatin Calcium (Lipitor) 80 mg QHS PO Last administered on 12/28/18 20:18; Admin Dose 80 MG; Start 12/18/18 at 21:00 Baclofen (Lioresal) 10 mg TID PO Last administered on 12/28/18 20:18; Admin Dose 10 MG; Start 12/18/18 at 13:00 Clopidogrel Bisulfate (plaVIX) 75 mg DAILY PO Last administered on 12/28/18 08:22; Admin Dose 75 MG; Start 12/18/18 at 09:30 Multivit/Ca Carb/ B Cmplx/FA/Prenat (Amarilis-Christina) 1 tab DAILY PO Last administered on 12/28/18 08:22; Admin Dose 1 TAB; Start 12/18/18 at 09:30 Mirtazapine (Remeron) 15 mg HS PO Last administered on 12/28/18 20:20; Admin Dose 15 MG; Start 12/18/18 at 21:00 Paroxetine HCl (Paxil) 10 mg DAILY PO Last administered on 12/28/18 08:22; Admin Dose 10 MG; Start 12/18/18 at 09:30 Zinc Sulfate (Zinc Sulfate) 220 mg DAILY PO Last administered on 12/28/18 08:22; Admin Dose 220 MG; Start 12/18/18 at 09:30 Sevelamer Carbonate (Renvela) 800 mg WITH MEALS PO Last administered on 12/28/18 17:28; Admin Dose 800 MG; Start 12/18/18 at 11:30 Diagnostic Test (Pha) (Accu-Chek) 1 ea 02 XX Last administered on 12/29/18 02:46; Admin Dose 1 EA; Start 12/19/18 at 02:00 Miscellaneous Information 1 ea NOTE XX ; Start 12/18/18 at 13:00 Glucose (Glutose) 15 gm Q15M PRN PO DECREASED GLUCOSE Last administered on 12/19/18 22:39; Admin Dose 15 GM; Start 12/18/18 at 13:00 Glucose (Glutose) 22.5 gm Q15M PRN PO DECREASED GLUCOSE Last administered on 12/19/18 23:35; Admin Dose 22.5 GM; Start 12/18/18 at 13:00 Dextrose (D50w Syringe) 25 ml Q15M PRN IV DECREASED GLUCOSE; Start 12/18/18 at 13:00 Dextrose (D50w Syringe) 50 ml Q15M PRN IV DECREASED GLUCOSE Last administered on 12/22/18 07:09; Admin Dose 50 ML; Start 12/18/18 at 13:00 Glucagon (Glucagen) 1 mg Q15M PRN IM DECREASED GLUCOSE; Start 12/18/18 at 13:00 Glucose (Glutose) 15 gm Q15M PRN BUCCAL DECREASED GLUCOSE; Start 12/18/18 at 13:00 Epoetin Josias-epbx (Retacrit (Esrd)) 8,000 unit MoWeFr@1700 SC Last administered on 12/27/18 17:43; Admin Dose 8,000 UNIT; Start 12/18/18 at 17:00 Levofloxacin (Levaquin) 500 mg Q48H PO Last administered on 12/28/18 07:48; Admin Dose 500 MG; Start 12/20/18 at 08:00 Povidone Iodine (Povidone-Iodine) 1 applic BID TOP Last administered on 12/29/18 08:29; Admin Dose 1 APPLIC; Start 12/18/18 at 21:00 Sodium Hypochlorite (Dakins Diluted (40)) 1 applic BID TP Last administered on 12/29/18 08:29; Admin Dose 1 APPLIC; Start 12/18/18 at 21:00 Multi-Ingredient Ointment (Eucerin Cream) 1 applic DAILY TOP Last administered on 12/29/18 08:29; Admin Dose 1 APPLIC; Start 12/19/18 at 10:28 Ondansetron HCl (Zofran Inj) 4 mg Q6H PRN IV NAUSEA AND/OR VOMITING Last administered on 12/23/18 05:05; Admin Dose 4 MG; Start 12/21/18 at 13:30 Amlodipine Besylate (Norvasc) 5 mg DAILY PO Last administered on 12/28/18 08:2 3; Admin Dose 5 MG; Start 12/23/18 at 09:00 Lisinopril (Zestril) 40 mg DAILY PO Last administered on 12/28/18 08:23; Admin Dose 40 MG; Start 12/23/18 at 09:00 Linagliptin (Tradjenta) 5 mg DAILY PO Last administered on 12/28/18 08:22; Admin Dose 5 MG; Start 12/22/18 at 14:30 Bromocriptine Mesylate (Parlodel) 2.5 mg QHS PO Last administered on 12/28/18 20:20; Admin Dose 2.5 MG; Start 12/22/18 at 21:00 Diagnostic Test (Pha) (Accu-Chek) 1 ea 2 HOURS AFTER MEALS XX Last administered on 12/29/18 10:07; Admin Dose 1 EA; Start 12/22/18 at 20:00 Diagnostic Test (Pha) (Accu-Chek) 1 ea AC MEALS XX Last administered on 12/29/18 07:00; Admin Dose 1 EA; Start 12/22/18 at 17:30 Vancomycin HCl 250 ml @ 125 mls/hr Q96H IVPB Last administered on 12/27/18 12:03; Admin Dose 125 MLS/HR; Start 12/23/18 at 12:00 Metoprolol Tartrate (Lopressor) 100 mg BID PO Last administered on 12/28/18 20:20; Admin Dose 100 MG; Start 12/26/18 at 21:00 Famotidine (Pepcid Iv) 20 mg BID IV ; Start 12/29/18 at 21:00 Insulin Glargine (Lantus) 4 units DAILY@2000 SC ; Start 12/29/18 at 20:00 DENIS LUKE MD Dec 29, 2018 13:46
--- NOTE | 2018-12-29 14:12 | CONS ---
Consultation Date/Type/Reason Admit Date/Time Dec 18, 2018 at 04:02 Initial Consult Date 12/22/18 Type of Consult SUBJECTIVE: Pt developed Acute Mental status change last night and was taken for CT of brain without contrast. Afebrile. Looks comfortable. VS: stable T: 97.7 LABS: Reviewed. WBC- 9.1 CT of the BRAIN: 12/29/18 IMPRESSION: No CT evidence of an acute intracranial abnormality. CT of ABD/PELVIC: 12/29/18 IMPRESSION: 1. Small bilateral pleural effusions with adjacent atelectasis or infiltrate in the lower lobes. 2. Small pericardial effusion. 3. Large amount of stool throughout the colon. Recommend correlation for constipation. No evidence of bowel obstruction. 4. There is an 8 mm nodular density in the right lower lobe. A follow-up chest CT in 6 months is recommended. 5. Other ancillary findings as detailed above. 6. Limited evaluation of the solid organs due to lack of intravenous contrast. Indwelling's: Left upper extremity AV fistula Allergy: Clindamycin Antimicrobials: Levofloxacin, Vanco Physical examination: GEN: Well-developed well-nourished elderly -[place] male, who is in no distress. HENT: Head atraumatic normocephalic; neck is supple PULM: chest rise symmetrical breath sounds diminished bases. Heart: S1-S2. Abdomen: soft, bowel sounds present. Extremities with bilateral lower extremities dressing intact Assessment: 1. Bilateral lower extremities wounds with cellulitis and osteomyelitis 2. End-stage renal disease 3. Diabetes 4. Diabetic neuropathy 5. Acute encephalopathy tx ,metabolic Plan: Pt is stable. Continue current antibiotics. CT of brain and ABD noted. HD per renal. Podiatry rec-s==>plan for right 2nd toe amputation Requesting Provider: ADRIANA JUSTICE Date/Time of Note DATE: 12/29/18 TIME: 14:03 Exam/Review of Systems Exam Vitals Vital Signs Date Temp Pulse Resp B/P (MAP) Pulse Ox O2 O2 Flow FiO2 Time Delivery Rate 12/29/18 86 12:01 12/29/18 97.7 115/77 99 Nasal 11:23 (90) Cannula 12/29/18 3.0 08:00 12/29/18 16 07:31 Intake and Output 12/28/18 12/28/18 12/29/18 1414:59 22:59 06:59 IntakeIntake Total 680 ml 50 ml BalanceBalance 680 ml 50 ml Results Result Diagram: 12/29/18 1034 12/29/18 0514 Results 24hrs Laboratory Tests Test 12/28/18 17:25 12/28/18 20:16 12/29/18 02:42 12/29/18 04:48 Bedside Glucose 171 247 H 237 H 233 H Test 12/29/18 04:59 12/29/18 05:10 12/29/18 05:14 12/29/18 08:08 Blood Gas Blood arterial Specimen Source Arterial Blood 12/29/2018 5:04:3 Date Drawn 3 AM Arterial Blood pH 7.390 (Temp corrected) Arterial Blood 42.5 pCO2 (Temp correct) Arterial Blood 62.2 L pO2 (Temp corrected) Arterial Blood 25.1 HCO3 Arterial Blood 0.1 Base Excess Arterial Blood 88.7 L Oxygen Saturation Mando Test ACCEPTAB Arterial Blood Right Radial Gas Puncture Site Arterial 1.4 Blood Carboxyhemo globin Arterial Blood 0.4 Methemoglobin Blood Gas A-a O2 80.1 H Differential Oxyhemoglobin 87.1 L Percent Blood Gas 37.0 Temperature Blood Gas NASAL CANNULA Modality FiO2 27.0 Blood Gas LW Notified Whom Blood Gas 12/29/2018 5:15:0 Notified Time 8 AM White Blood Count 10.0 Red Blood Count 2.81 L Hemoglobin 8.1 L Hematocrit 25.3 L Mean Corpuscular 90.0 Volume Mean Corpuscular 28.8 L Hemoglobin Mean Corpuscular 32.0 Hemoglobin Concen t Red Cell 16.2 H Distribution Width Platelet Count 297 Mean Platelet 10.8 H Volume Immature 0.500 H Granulocytes % Neutrophils % 70.8 Lymphocytes % 15.2 Monocytes % 13.0 H Eosinophils % 0.0 Basophils % 0.5 Nucleated Red 0.0 Blood Cells % Immature 0.050 H Granulocytes # Neutrophils # 7.1 Lymphocytes # 1.5 Monocytes # 1.3 H Eosinophils # 0.0 Basophils # 0.1 Nucleated Red 0.0 Blood Cells # Ammonia < 9 L Sodium Level 138 Potassium Level 6.0 H Chloride Level 102 Carbon Dioxide 24 Level Anion Gap 12 Blood Urea 55 H Nitrogen Creatinine 9.09 H Est Glomerular 7 L Filtrat Rate mL/min Glucose Level 196 Calcium Level 8.9 Bedside Glucose 203 Test 12/29/18 10:34 12/29/18 13:37 White Blood Count 9.1 Red Blood Count 2.69 L Hemoglobin 7.7 L Hematocrit 24.3 L Mean Corpuscular 90.3 Volume Mean Corpuscular 28.6 L Hemoglobin Mean Corpuscular 31.7 L Hemoglobin Concen t Red Cell 16.0 H Distribution Width Platelet Count 284 Mean Platelet 10.5 H Volume Immature 0.300 Granulocytes % Neutrophils % 75.3 Lymphocytes % 10.7 L Monocytes % 13.2 H Eosinophils % 0.1 Basophils % 0.4 Nucleated Red 0.0 Blood Cells % Immature 0.030 Granulocytes # Neutrophils # 6.8 Lymphocytes # 1.0 Monocytes # 1.2 H Eosinophils # 0.0 Basophils # 0.0 Nucleated Red 0.0 Blood Cells # Bedside Glucose 183 Medications Medication Current Medications Vancomycin HCl (Vanco Iv Per Pharmacy) VANCOMYCIN PER PHARMACY PER PROTOCOL XX ; Start 12/18/18 at 09:30 Hydralazine HCl (Apresoline) 20 mg Q4 PRN IV HIGH BLOOD Last administered on 12/21/18 03:13; Admin Dose 20 MG; Start 12/18/18 at 09:30 Acetaminophen (Tylenol Tab) 650 mg Q4H PRN PO MILD PAIN(1-3)OR ELEVATED TEMP; Start 12/18/18 at 09:30 Acetaminophen/ Hydrocodone Bitart ([place] (5/325)) 1 tab Q4H PRN PO MODERATE PAIN LEVEL 4-6 Last administered on 12/22/18at 00:00; Admin Dose 1 TAB; Start 12/18/18 at 09:30 Insulin Aspart (Novolog Insulin Pen) NOVOLOG *MILD* ALGORITHM WITH MEALS BEDTIME SC Last administered on 12/29/18at 08:32; Admin Dose 2 UNIT; Start at 12:00 Aspirin (Halfprin) 81 mg DAILY PO Last administered on 12/28/18 08:22; Admin Dose 81 MG; Start 12/18/18 at 09:30 Atorvastatin Calcium (Lipitor) 80 mg QHS PO Last administered on 12/28/18 20:18; Admin Dose 80 MG; Start 12/18/18 at 21:00 Baclofen (Lioresal) 10 mg TID PO Last administered on 12/28/18 20:18; Admin Dose 10 MG; Start 12/18/18 at 13:00 Clopidogrel Bisulfate (plaVIX) 75 mg DAILY PO Last administered on 12/28/18 08:22; Admin Dose 75 MG; Start 12/18/18 at 09:30 Multivit/Ca Carb/ B Cmplx/FA/Prenat (Amarilis-Christina) 1 tab DAILY PO Last administered on 12/28/18 08:22; Admin Dose 1 TAB; Start 12/18/18 at 09:30 Mirtazapine (Remeron) 15 mg HS PO Last administered on 12/28/18 20:20; Admin Dose 15 MG; Start 12/18/18 at 21:00 Paroxetine HCl (Paxil) 10 mg DAILY PO Last administered on 12/28/18 08:22; Admin Dose 10 MG; Start 12/18/18 at 09:30 Zinc Sulfate (Zinc Sulfate) 220 mg DAILY PO Last administered on 12/28/18 08:22; Admin Dose 220 MG; Start 12/18/18 at 09:30 Sevelamer Carbonate (Renvela) 800 mg WITH MEALS PO Last administered on 12/28/18 17:28; Admin Dose 800 MG; Start 12/18/18 at 11:30 Diagnostic Test (Pha) (Accu-Chek) 1 ea 02 XX Last administered on 12/29/18 02:46; Admin Dose 1 EA; Start 12/19/18 at 02:00 Miscellaneous Information 1 ea NOTE XX ; Start 12/18/18 at 13:00 Glucose (Glutose) 15 gm Q15M PRN PO DECREASED GLUCOSE Last administered on 12/19/18 22:39; Admin Dose 15 GM; Start 12/18/18 at 13:00 Glucose (Glutose) 22.5 gm Q15M PRN PO DECREASED GLUCOSE Last administered on 12/19/18 23:35; Admin Dose 22.5 GM; Start 12/18/18 at 13:00 Dextrose (D50w Syringe) 25 ml Q15M PRN IV DECREASED GLUCOSE; Start 12/18/18 at 13:00 Dextrose (D50w Syringe) 50 ml Q15M PRN IV DECREASED GLUCOSE Last administered on 12/22/18 07:09; Admin Dose 50 ML; Start 12/18/18 at 13:00 Glucagon (Glucagen) 1 mg Q15M PRN IM DECREASED GLUCOSE; Start 12/18/18 at 13:00 Glucose (Glutose) 15 gm Q15M PRN BUCCAL DECREASED GLUCOSE; Start 12/18/18 at 13:00 Epoetin Josias-epbx (Retacrit (Esrd)) 8,000 unit MoWeFr@1700 SC Last administered on 12/27/18 17:43; Admin Dose 8,000 UNIT; Start 12/18/18 at 17:00 Levofloxacin (Levaquin) 500 mg Q48H PO Last administered on 12/28/18 07:48; Admin Dose 500 MG; Start 12/20/18 at 08:00 Povidone Iodine (Povidone-Iodine) 1 applic BID TOP Last administered on 12/29/18 08:29; Admin Dose 1 APPLIC; Start 12/18/18 at 21:00 Sodium Hypochlorite (Dakins Diluted (40)) 1 applic BID TP Last administered on 12/29/18 08:29; Admin Dose 1 APPLIC; Start 12/18/18 at 21:00 Multi-Ingredient Ointment (Eucerin Cream) 1 applic DAILY TOP Last administered on 12/29/18 08:29; Admin Dose 1 APPLIC; Start 12/19/18 at 10:28 Ondansetron HCl (Zofran Inj) 4 mg Q6H PRN IV NAUSEA AND/OR VOMITING Last administered on 12/23/18 05:05; Admin Dose 4 MG; Start 12/21/18 at 13:30 Amlodipine Besylate (Norvasc) 5 mg DAILY PO Last administered on 12/28/18 08:23; Admin Dose 5 MG; Start 12/23/18 at 09:00 Lisinopril (Zestril) 40 mg DAILY PO Last administered on 12/28/18 08:23; Admin Dose 40 MG; Start 12/23/18 at 09:00 Linagliptin (Tradjenta) 5 mg DAILY PO Last administered on 12/28/18 08:22; Admin Dose 5 MG; Start 12/22/18 at 14:30 Bromocriptine Mesylate (Parlodel) 2.5 mg QHS PO Last administered on 12/28/18 20:20; Admin Dose 2.5 MG; Start 12/22/18 at 21:00 Diagnostic Test (Pha) (Accu-Chek) 1 ea 2 HOURS AFTER MEALS XX Last administered on 12/29/18at 10:07; Admin Dose 1 EA; Start 12/22/18 at 20:00 Diagnostic Test (Pha) (Accu-Chek) 1 ea AC MEALS XX Last administered on 12/29/18at 07:00; Admin Dose 1 EA; Start 12/22/18 at 17:30 Vancomycin HCl 250 ml @ 125 mls/hr Q96H IVPB Last administered on 12/27/18at 12:03; Admin Dose 125 MLS/HR; Start 12/23/18 at 12:00 Metoprolol Tartrate (Lopressor) 100 mg BID PO Last administered on 12/28/18at 20:20; Admin Dose 100 MG; Start 12/26/18 at 21:00 Famotidine (Pepcid Iv) 20 mg BID IV ; Start 12/29/18 at 21:00 Insulin Glargine (Lantus) 4 units DAILY@2000 SC ; Start 12/29/18 at 20:00 JODIE NAVA Dec 29, 2018 14:12
--- NOTE | 2018-12-29 14:31 | CONS ---
Assessment/Plan Assessment/Plan Assessment/Plan (Daily) HTN Dyslipidemia. Peripheral arterial disease with nonhealing lower extremity ulcers. Nonhealing lower extremity ulcers. Diabetes mellitus. ESRD on HD Awaiting Surgery Continue Lopressor Continue Norvasc and Lisinopril Continue ASA and Plavix Continue Insulin Continue Lipitor Continue Renvela HD as scheduled Consultation Date/Type/Reason Admit Date/Time Dec 18, 2018 at 04:02 Initial Consult Date 12/22/18 Type of Consult Cardiology Requesting Provider: ADRIANA JUSTICE Date/Time of Note DATE: 12/29/18 TIME: 14:28 Exam/Review of Systems Vital Signs Vitals Vital Signs Date Temp Pulse Resp B/P (MAP) Pulse Ox O2 O2 Flow FiO2 Time Delivery Rate 12/29/18 86 12:01 12/29/18 97.7 115/77 99 Nasal 11:23 (90) Cannula 12/29/18 3.0 08:00 12/29/18 16 07:31 Intake and Output 12/28/18 12/28/18 12/29/18 1515:00 23:00 07:00 IntakeIntake Total 680 ml 50 ml BalanceBalance 680 ml 50 ml Exam Exam Head: normocephalic, atraumatic Neck: supple, non-tender Respiratory: clear to auscultation Cardiovascular: regular rate and rhythm (no m/r/g) Gastrointestinal: soft BS present Labs Result Diagram: 12/29/18 1034 12/29/18 0514 Results 24hrs Laboratory Tests Test 12/28/18 17:25 12/28/18 20:16 12/29/18 02:42 12/29/18 04:48 Bedside Glucose 171 247 H 237 H 233 H Test 12/29/18 04:59 12/29/18 05:10 12/29/18 05:14 12/29/18 08:08 Blood Gas Blood arterial Specimen Source Arterial Blood 12/29/2018 5:04:3 Date Drawn 3 AM Arterial Blood pH 7.390 (Temp corrected) Arterial Blood 42.5 pCO2 (Temp correct) Arterial Blood 62.2 L pO2 (Temp corrected) Arterial Blood 25.1 HCO3 Arterial Blood 0.1 Base Excess Arterial Blood 88.7 L Oxygen Saturation Mando Test ACCEPTAB Arterial Blood Right Radial Gas Puncture Site Arterial 1.4 Blood Carboxyhemo globin Arterial Blood 0.4 Methemoglobin Blood Gas A-a O2 80.1 H Differential Oxyhemoglobin 87.1 L Percent Blood Gas 37.0 Temperature Blood Gas NASAL CANNULA Modality FiO2 27.0 Blood Gas LW Notified Whom Blood Gas 12/29/2018 5:15:0 Notified Time 8 AM White Blood Count 10.0 Red Blood Count 2.81 L Hemoglobin 8.1 L Hematocrit 25.3 L Mean Corpuscular 90.0 Volume Mean Corpuscular 28.8 L Hemoglobin Mean Corpuscular 32.0 Hemoglobin Concen t Red Cell 16.2 H Distribution Width Platelet Count 297 Mean Platelet 10.8 H Volume Immature 0.500 H Granulocytes % Neutrophils % 70.8 Lymphocytes % 15.2 Monocytes % 13.0 H Eosinophils % 0.0 Basophils % 0.5 Nucleated Red 0.0 Blood Cells % Immature 0.050 H Granulocytes # Neutrophils # 7.1 Lymphocytes # 1.5 Monocytes # 1.3 H Eosinophils # 0.0 Basophils # 0.1 Nucleated Red 0.0 Blood Cells # Ammonia < 9 L Sodium Level 138 Potassium Level 6.0 H Chloride Level 102 Carbon Dioxide 24 Level Anion Gap 12 Blood Urea 55 H Nitrogen Creatinine 9.09 H Est Glomerular 7 L Filtrat Rate mL/min Glucose Level 196 Calcium Level 8.9 Bedside Glucose 203 Test 12/29/18 10:34 12/29/18 13:37 White Blood Count 9.1 Red Blood Count 2.69 L Hemoglobin 7.7 L Hematocrit 24.3 L Mean Corpuscular 90.3 Volume Mean Corpuscular 28.6 L Hemoglobin Mean Corpuscular 31.7 L Hemoglobin Concen t Red Cell 16.0 H Distribution Width Platelet Count 284 Mean Platelet 10.5 H Volume Immature 0.300 Granulocytes % Neutrophils % 75.3 Lymphocytes % 10.7 L Monocytes % 13.2 H Eosinophils % 0.1 Basophils % 0.4 Nucleated Red 0.0 Blood Cells % Immature 0.030 Granulocytes # Neutrophils # 6.8 Lymphocytes # 1.0 Monocytes # 1.2 H Eosinophils # 0.0 Basophils # 0.0 Nucleated Red 0.0 Blood Cells # Bedside Glucose 183 Medications Medications Current Medications Vancomycin HCl (Vanco Iv Per Pharmacy) VANCOMYCIN PER PHARMACY PER PROTOCOL XX ; Start 12/18/18 at 09:30 Hydralazine HCl (Apresoline) 20 mg Q4 PRN IV HIGH BLOOD Last administered on 12/21/18at 03:13; Admin Dose 20 MG; Start 12/18/18 at 09:30 Acetaminophen (Tylenol Tab) 650 mg Q4H PRN PO MILD PAIN(1-3)OR ELEVATED TEMP; Start 12/18/18 at 09:30 Acetaminophen/ Hydrocodone Bitart ([place] (5/325)) 1 tab Q4H PRN PO MODERATE PAIN LEVEL 4-6 Last administered on 12/22/18 00:00; Admin Dose 1 TAB; Start 12/18/18 at 09:30 Insulin Aspart (Novolog Insulin Pen) NOVOLOG *MILD* ALGORITHM WITH MEALS BEDTIME SC Last administered on 12/29/18 08:32; Admin Dose 2 UNIT; Start 12/18/18 at 12:00 Aspirin (Halfprin) 81 mg DAILY PO Last administered on 12/28/18 08:22; Admin Dose 81 MG; Start 12/18/18 at 09:30 Atorvastatin Calcium (Lipitor) 80 mg QHS PO Last administered on 12/28/18 20:18; Admin Dose 80 MG; Start 12/18/18 at 21:00 Baclofen (Lioresal) 10 mg TID PO Last administered on 12/28/18 20:18; Admin Dose 10 MG; Start 12/18/18 at 13:00 Clopidogrel Bisulfate (plaVIX) 75 mg DAILY PO Last administered on 12/28/18 08:22; Admin Dose 75 MG; Start 12/18/18 at 09:30 Multivit/Ca Carb/ B Cmplx/FA/Prenat (Amarilis-Christina) 1 tab DAILY PO Last administered on 12/28/18 08:22; Admin Dose 1 TAB; Start 12/18/18 at 09:30 Mirtazapine (Remeron) 15 mg HS PO Last administered on 12/28/18 20:20; Admin Dose 15 MG; Start 12/18/18 at 21:00 Paroxetine HCl (Paxil) 10 mg DAILY PO Last administered on 12/28/18 08:22; Admin Dose 10 MG; Start 12/18/18 at 09:30 Zinc Sulfate (Zinc Sulfate) 220 mg DAILY PO Last administered on 12/28/18 08:22; Admin Dose 220 MG; Start 12/18/18 at 09:30 Sevelamer Carbonate (Renvela) 800 mg WITH MEALS PO Last administered on 12/28/18 17:28; Admin Dose 800 MG; Start 12/18/18 at 11:30 Diagnostic Test (Pha) (Accu-Chek) 1 ea 02 XX Last administered on 12/29/18 02:46; Admin Dose 1 EA; Start 12/19/18 at 02:00 Miscellaneous Information 1 ea NOTE XX ; Start 12/18/18 at 13:00 Glucose (Glutose) 15 gm Q15M PRN PO DECREASED GLUCOSE Last administered on 12/19/18 22:39; Admin Dose 15 GM; Start 12/18/18 at 13:00 Glucose (Glutose) 22.5 gm Q15M PRN PO DECREASED GLUCOSE Last administered on 12/19/18 23:35; Admin Dose 22.5 GM; Start 12/18/18 at 13:00 Dextrose (D50w Syringe) 25 ml Q15M PRN IV DECREASED GLUCOSE; Start 12/18/18 at 13:00 Dextrose (D50w Syringe) 50 ml Q15M PRN IV DECREASED GLUCOSE Last administered on 12/22/18 07:09; Admin Dose 50 ML; Start 12/18/18 at 13:00 Glucagon (Glucagen) 1 mg Q15M PRN IM DECREASED GLUCOSE; Start 12/18/18 at 13:00 Glucose (Glutose) 15 gm Q15M PRN BUCCAL DECREASED GLUCOSE; Start 12/18/18 at 13:00 Epoetin Josias-epbx (Retacrit (Esrd)) 8,000 unit MoWeFr@1700 SC Last administered on 12/27/18 17:43; Admin Dose 8,000 UNIT; Start 12/18/18 at 17:00 Levofloxacin (Levaquin) 500 mg Q48H PO Last administered on 12/28/18 07:48; Admin Dose 500 MG; Start 12/20/18 at 08:00 Povidone Iodine (Povidone-Iodine) 1 applic BID TOP Last administered on 12/29/18 08:29; Admin Dose 1 APPLIC; Start 12/18/18 at 21:00 Sodium Hypochlorite (Dakins Diluted (1/40)) 1 applic BID TP Last administered on 12/29/18 08:29; Admin Dose 1 APPLIC; Start 12/18/18 at 21:00 Multi-Ingredient Ointment (Eucerin Cream) 1 applic DAILY TOP Last administered on 12/29/18 08:29; Admin Dose 1 APPLIC; Start 12/19/18 at 10:28 Ondansetron HCl (Zofran Inj) 4 mg Q6H PRN IV NAUSEA AND/OR VOMITING Last administered on 12/23/18 05:05; Admin Dose 4 MG; Start 12/21/18 at 13:30 Amlodipine Besylate (Norvasc) 5 mg DAILY PO Last administered on 12/28/18 08:23; Admin Dose 5 MG; Start 12/23/18 at 09:00 Lisinopril (Zestril) 40 mg DAILY PO Last administered on 12/28/18 08:23; Admin Dose 40 MG; Start 12/23/18 at 09:00 Linagliptin (Tradjenta) 5 mg DAILY PO Last administered on 12/28/18 08:22; Admin Dose 5 MG; Start 12/22/18 at 14:30 Bromocriptine Mesylate (Parlodel) 2.5 mg QHS PO Last administered on 12/28/18 20:20; Admin Dose 2.5 MG; Start 12/22/18 at 21:00 Diagnostic Test (Pha) (Accu-Chek) 1 ea 2 HOURS AFTER MEALS XX Last administered on 12/29/18 14:22; Admin Dose 1 EA; Start 12/22/18 at 20:00 Diagnostic Test (Pha) (Accu-Chek) 1 ea AC MEALS XX Last administered on 12/29/18 11:30; Admin Dose 1 EA; Start 12/22/18 at 17:30 Vancomycin HCl 250 ml @ 125 mls/hr Q96H IVPB Last administered on 12/27/18 12:03; Admin Dose 125 MLS/HR; Start 12/23/18 at 12:00 Metoprolol Tartrate (Lopressor) 100 mg BID PO Last administered on 12/28/18 20:20; Admin Dose 100 MG; Start 12/26/18 at 21:00 Famotidine (Pepcid Iv) 20 mg BID IV ; Start 12/29/18 at 21:00 Insulin Glargine (Lantus) 4 units DAILY@2000 SC ; Start 12/29/18 at 20:00 LISBETH PEREZ M.D. Dec 29, 2018 14:31
[2018-12-29] MEDS: hydrALAzine 20 MG INJ IV PRN (15:52)
[2018-12-29] MEDS ORDERED: morphine 2 MG INJ IV PRN (19:00)
[2018-12-29] MEDS: INSULIN GLARGINE [LANTus] (100 UNITS/ML) SYG SC SCH (20:00)
[2018-12-29] MEDS: FAMOTIDINE 20 MG INJ IV SCH (20:39)
[2018-12-29] MEDS: ATORVASTATIN 80 MG TAB PO SCH (20:40)
[2018-12-29] MEDS: BROMOCRIPTINE 2.5 MG TAB PO SCH (20:41)
[2018-12-29] MEDS: MIRTAZAPINE 15 MG TAB PO SCH (20:41)
[2018-12-29] MEDS ORDERED: INSULIN GLARGINE [LANTus] (100 UNITS/ML) SYG SC ONE (22:00)
[2018-12-30] VITALS (25 sets, daily range): BP systolic 93–158; BP diastolic 55–69; PULSE 71–98; RESP 18–20
[2018-12-30] MEDS: ACCU-CHEK XX SCH ×6 (02:24→17:02)
[2018-12-30] MEDS: INSULIN ASPART [NOVOLOG] 3 ML PEN SC SCH ×4 (08:00→21:08)
[2018-12-30] MEDS: MULTIVIT/CA CARB/B CMPLX/FA TAB PO SCH (08:03)
[2018-12-30] MEDS: LISINOPRIL 20 MG TAB PO SCH (08:03)
[2018-12-30] MEDS: SEVELAMER CARBONATE 800 MG TABLET PO SCH ×3 (08:03→17:02)
[2018-12-30] MEDS: LEVOFLOXACIN 500 MG TAB PO SCH (08:03)
[2018-12-30] MEDS: ZINC SULFATE 220 MG CAP PO SCH (08:04)
[2018-12-30] MEDS: ASPIRIN (EC) 81 MG TAB PO SCH (08:04)
[2018-12-30] MEDS: PAROXETINE 10 MG TAB PO SCH (08:04)
[2018-12-30] MEDS: FAMOTIDINE 20 MG INJ IV SCH (08:05)
[2018-12-30] MEDS: LINAGLIPTIN 5 MG TABLET PO SCH (08:05)
[2018-12-30] MEDS: AMLODIPINE 5 MG TAB PO SCH (08:10)
[2018-12-30] MEDS: EUCERIN 113 GM CR TOP SCH (08:10)
[2018-12-30] MEDS: CLOPIDOGREL 75 MG TAB PO SCH (08:10)
[2018-12-30] MEDS: BACLOFEN 10 MG TAB PO SCH ×3 (08:10→20:57)
[2018-12-30] MEDS: METOPROLOL 100 MG TAB PO SCH ×2 (08:11→20:57)
[2018-12-30] MEDS: DAKINS 0.0125%(1/40) 473 ML SOLUTION TP SCH ×2 (08:11→21:00)
[2018-12-30] MEDS: POVIDONE IODINE 10% 28.4 GM OINT TOP SCH ×2 (08:11→21:00)
--- NOTE | 2018-12-30 09:04 | PN ---
DATE: 12/30/2018 SUBJECTIVE: The patient is stable. No events overnight. OBJECTIVE: VITAL SIGNS: Blood pressure is 137/66, pulse 95, respirations 20, temperature 98.3. HEENT: Head is normocephalic. NECK: Supple. HEART: Regular rate. LUNGS: Show diminished breath sounds at the base. ABDOMEN: Soft, nontender to palpation without rebound or guarding. EXTREMITIES: Negative for clubbing, cyanosis, no edema. DERMATOLOGIC: No rashes. MUSCULOSKELETAL: No joint effusion. NEUROLOGIC: No change in exam. MEDICATIONS: Reviewed. LABORATORY DATA: Has been reviewed. ASSESSMENT AND PLAN: 1. End-stage renal disease. The patient had hemodialysis yesterday. Plan for dialysis again today as the patient has persistent hyperkalemia. 2. Hyperkalemia. Continue dialysis on a low potassium bath. 3. Anemia. Monitor hemoglobin and hematocrit levels. Continue Epogen. 4. Mineral bone disorder. Monitor calcium and phosphorus levels. 5. Diabetic foot ulcer. Patient is being seen by wound care. Continue antibiotic therapy. Follow u p with podiatry. 6. Diabetes. Continue current insulin regimen. 7. History of cerebrovascular accident. Continue medical management. 8. Encephalopathy, etiology is toxic metabolic, improving. 9. Hypertension. Continue current blood pressure regimen. 10. Dyslipidemia. Continue statin therapy. Dictated By: RUFUS CHERY/NTS Conf#: [id number] DID#: [id number] CC: JACKI LARA MD;*EndCC*
--- NOTE | 2018-12-30 14:46 | CONS ---
Assessment/Plan Assessment/Plan Assessment/Plan (Recall) 63 M c/ Hx or prior stroke, ESRD on HD, and other comorbidities...who is admitted for management of cellulitis.. During HD on 12/23, he was noted to be transiently nonverbal...for which neurology is consulted.. He is noted to have been periodically hypoglycemic earlier on in this admission...which could in theory precipitate a similar presentation. Seizure and TIA are also worth considering.. MRI brain is without obvious acute intracranial pathology, though notable for chronic infarctions. EEG was without epileptiform activity. P: Neurologically cleared for foot surgery.. Agree w/ Plavix for secondary stroke prevention as medically able (lipids are at goal) [place] as necessary Limit sedating medications where possible PT/OT/ST as necessary Other medical management per primary Will follow clinically Consultation Date/Type/Reason Admit Date/Time Dec 18, 2018 at 04:02 Type of Consult Neurology Reason for Consultation aphasia Requesting Provider: ADRIANA JUSTICE Date/Time of Note DATE: 12/30/18 TIME: 14:45 24 HR Interval Summary Free Text/Dictation Continues acute care Exam/Review of Systems Exam Vitals Vital Signs Date Temp Pulse Resp B/P (MAP) Pulse Ox O2 O2 Flow FiO2 Time Delivery Rate 12/30/18 83 12:01 12/30/18 98.3 20 105/55 97 11:26 (72) 12/30/18 Nasal 3.0 07:38 Cannula Intake and Output 12/29/18 12/29/18 12/30/18 1515:00 23:00 07:00 IntakeIntake Total 0 ml OutputOutput Total 3000 ml 0 ml BalanceBalance -3000 ml 0 ml Results Result Diagram: 12/30/18 0458 12/30/18 0458 Results 24hrs Laboratory Tests Test 12/29/18 17:44 12/29/18 18:34 12/29/18 20:24 12/29/18 22:20 Bedside Glucose 132 140 138 White Blood Count 10.1 Red Blood Count 2.78 L Hemoglobin 7.9 L Hematocrit 24.4 L Mean Corpuscular 87.8 Volume Mean Corpuscular 28.4 L Hemoglobin Mean Corpuscular 32.4 Hemoglobin Concent Red Cell 15.9 H Distribution Width Platelet Count 318 Mean Platelet Volume 10.6 H Immature 0.400 Granulocytes % Neutrophils % 81.2 H Lymphocytes % 5.9 L Monocytes % 12.2 H Eosinophils % 0.0 Basophils % 0.3 Nucleated Red Blood 0.0 Cells % Immature 0.040 H Granulocytes # Neutrophils # 8.2 H Lymphocytes # 0.6 L Monocytes # 1.2 H Eosinophils # 0.0 Basophils # 0.0 Nucleated Red Blood 0.0 Cells # Test 12/30/18 02:21 12/30/18 04:58 12/30/18 08:04 12/30/18 11:52 Bedside Glucose 111 106 228 H White Blood Count 7.8 # Red Blood Count 2.80 L Hemoglobin 7.9 L Hematocrit 24.7 L Mean Corpuscular 88.2 Volume Mean Corpuscular 28.2 L Hemoglobin Mean Corpuscular 32.0 Hemoglobin Concent Red Cell 16.2 H Distribution Width Platelet Count 333 Mean Platelet Volume 11.1 H Immature 0.300 Granulocytes % Neutrophils % 65.7 Lymphocytes % 18.8 Monocytes % 14.0 H Eosinophils % 0.3 Basophils % 0.9 Nucleated Red Blood 0.0 Cells % Immature 0.020 Granulocytes # Neutrophils # 5.1 Lymphocytes # 1.5 Monocytes # 1.1 H Eosinophils # 0.0 Basophils # 0.1 Nucleated Red Blood 0.0 Cells # Sodium Level 140 Potassium Level 5.3 H Chloride Level 103 Carbon Dioxide Level 26 Anion Gap 11 Blood Urea Nitrogen 36 #H Creatinine 6.70 #H Est Glomerular 10 L Filtrat Rate mL/min Glucose Level 79 # Calcium Level 9.1 Medications Medication Current Medications Vancomycin HCl (Vanco Iv Per Pharmacy) VANCOMYCIN PER PHARMACY PER PROTOCOL XX ; Start 12/18/18 at 09:30 Hydralazine HCl (Apresoline) 20 mg Q4 PRN IV HIGH BLOOD Last administered on 12/29/18at 15:52; Admin Dose 20 MG; Start 12/18/18 at 09:30 Acetaminophen (Tylenol Tab) 650 mg Q4H PRN PO MILD PAIN(1-3)OR ELEVATED TEMP; Start 12/18/18 at 09:30 Acetaminophen/ Hydrocodone Bitart ([place] (5/325)) 1 tab Q4H PRN PO MODERATE PAIN LEVEL 4-6 Last administered on 12/22/18at 00:00; Admin Dose 1 TAB; Start 12/18/18 at 09:30 Insulin Aspart (Novolog Insulin Pen) NOVOLOG *MILD* ALGORITHM WITH MEALS BEDTIME SC Last administered on 12/30/18 11:59; Admin Dose 3 UNIT; Start 12/18/18 at 12:00 Aspirin (Halfprin) 81 mg DAILY PO Last administered on 12/30/18 08:04; Admin Dose 81 MG; Start 12/18/18 at 09:30 Atorvastatin Calcium (Lipitor) 80 mg QHS PO Last administered on 12/28/18 20:18; Admin Dose 80 MG; Start 12/18/18 at 21:00 Baclofen (Lioresal) 10 mg TID PO Last administered on 12/30/18 11:51; Admin Dose 10 MG; Start 12/18/18 at 13:00 Clopidogrel Bisulfate (plaVIX) 75 mg DAILY PO Last administered on 12/30/18 08:10; Admin Dose 75 MG; Start 12/18/18 at 09:30 Multivit/Ca Carb/ B Cmplx/FA/Prenat (Amarilis-Christina) 1 tab DAILY PO Last administered on 12/30/18 08:03; Admin Dose 1 TAB; Start 12/18/18 at 09:30 Mirtazapine (Remeron) 15 mg HS PO Last administered on 12/28/18 20:20; Admin Dose 15 MG; Start 12/18/18 at 21:00 Paroxetine HCl (Paxil) 10 mg DAILY PO Last administered on 12/30/18 08:04; Admin Dose 10 MG; Start 12/18/18 at 09:30 Zinc Sulfate (Zinc Sulfate) 220 mg DAILY PO Last administered on 12/30/18 08:04; Admin Dose 220 MG; Start 12/18/18 at 09:30 Sevelamer Carbonate (Renvela) 800 mg WITH MEALS PO Last administered on 12/30/18 11:51; Admin Dose 800 MG; Start 12/18/18 at 11:30 Diagnostic Test (Pha) (Accu-Chek) 1 ea 02 XX Last administered on 12/30/18 02:24; Admin Dose 1 EA; Start 12/19/18 at 02:00 Miscellaneous Information 1 ea NOTE XX ; Start 12/18/18 at 13:00 Glucose (Glutose) 15 gm Q15M PRN PO DECREASED GLUCOSE Last administered on 12/19/18 22:39; Admin Dose 15 GM; Start 12/18/18 at 13:00 Glucose (Glutose) 22.5 gm Q15M PRN PO DECREASED GLUCOSE Last administered on 12/19/18at 23:35; Admin Dose 22.5 GM; Start 12/18/18 at 13:00 Dextrose (D50w Syringe) 25 ml Q15M PRN IV DECREASED GLUCOSE; Start 12/18/18 at 13:00 Dextrose (D50w Syringe) 50 ml Q15M PRN IV DECREASED GLUCOSE Last administered on 12/22/18at 07:09; Admin Dose 50 ML; Start 12/18/18 at 13:00 Glucagon (Glucagen) 1 mg Q15M PRN IM DECREASED GLUCOSE; Start 12/18/18 at 13:00 Glucose (Glutose) 15 gm Q15M PRN BUCCAL DECREASED GLUCOSE; Start 12/18/18 at 13:00 Epoetin Josias-epbx (Retacrit (Esrd)) 8,000 unit MoWeFr@1700 SC Last administered on 12/27/18at 17:43; Admin Dose 8,000 UNIT; Start 12/18/18 at 17:00 Levofloxacin (Levaquin) 500 mg Q48H PO Last administered on 12/30/18 08:03; Admin Dose 500 MG; Start 12/20/18 at 08:00 Povidone Iodine (Povidone-Iodine) 1 applic BID TOP Last administered on 12/14 08:11; Admin Dose 1 APPLIC; Start 12/18/18 at 21:00 Sodium Hypochlorite (Dakins Diluted (1/40)) 1 applic BID TP Last administered on 12/30/18 08:11; Admin Dose 1 APPLIC; Start 12/18/18 at 21:00 Multi-Ingredient Ointment (Eucerin Cream) 1 applic DAILY TOP Last administered on 12/30/18at 08:10; Admin Dose 1 APPLIC; Start 12/19/18 at 10:28 Ondansetron HCl (Zofran Inj) 4 mg Q6H PRN IV NAUSEA AND/OR VOMITING Last administered on 12/23/18 05:05; Admin Dose 4 MG; Start 12/21/18 at 13:30 Amlodipine Besylate (Norvasc) 5 mg DAILY PO Last administered on 12/30/18 08:10; Admin Dose 5 MG; Start 12/23/18 at 09:00 Lisinopril (Zestril) 40 mg DAILY PO Last administered on 12/30/18 08:03; Admin Dose 40 MG; Start 12/23/18 at 09:00 Linagliptin (Tradjenta) 5 mg DAILY PO Last administered on 12/30/18 08:05; Admin Dose 5 MG; Start 12/22/18 at 14:30 Bromocriptine Mesylate (Parlodel) 2.5 mg QHS PO Last administered on 12/28/18 20:20; Admin Dose 2.5 MG; Start 12/22/18 at 21:00 Diagnostic Test (Pha) (Accu-Chek) 1 ea 2 HOURS AFTER MEALS XX Last administered on 12/29/18 20:33; Admin Dose 1 EA; Start 12/22/18 at 20:00 Diagnostic Test (Pha) (Accu-Chek) 1 ea AC MEALS XX Last administered on 17:52; Admin Dose 1 EA; Start 12/22/18 at 17:30 Vancomycin HCl 250 ml @ 125 mls/hr Q96H IVPB Last administered on 12/27/18 12:03; Admin Dose 125 MLS/HR; Start 12/23/18 at 12:00 Metoprolol Tartrate (Lopressor) 100 mg BID PO Last administered on 12/30/18 08:11; Admin Dose 100 MG; Start 12/26/18 at 21:00 Famotidine (Pepcid Iv) 20 mg BID IV Last administered on 12/30/18 08:05; Admin Dose 20 MG; Start 12/29/18 at 21:00 Insulin Glargine (Lantus) 4 units DAILY@2000 SC ; Start 12/29/18 at 20:00 Morphine Sulfate (morphine) 2 mg Q4H PRN IV SEVERE PAIN LEVEL 7-10 Last administered on 12/30/18 01:45; Admin Dose 2 MG; Start 12/29/18 at 19:00 Miscellaneous Information (*Rx Drug Level Order Reminder*) VANCO TROUGH @ 1,100 ON... 1100 ONCE XX ; Start 12/31/18 at 11:00; Stop 12/31/18 at 11:01 ALTAGRACIA TRACEY Dec 30, 2018 14:46
--- NOTE | 2018-12-30 16:23 | CONS ---
Assessment/Plan Assessment/Plan Hospital Course (Demo Recall) No acute events over night, looks comfortable, no fevers Indwelling's: Left upper extremity AV fistula Allergy: Clindamycin Antimicrobials: Levofloxacin, Vanco Physical examination: Well-developed well-nourished elderly -[place] male in who is in no distress. Head atraumatic normocephalic neck is supple chest rise symmetrical breath sounds diminished bases. Heart: S1-S2. Abdomen soft bowel sounds present. Extremities with bilateral lower extremities dressing intact Assessment: 1. Bilateral lower extremities wounds with cellulitis and osteomyelitis 2. End-stage renal disease 3. Diabetes 4. Diabetic neuropathy Plan: Clinically stable, continue antibiotics, HD per renal, plan for right 2nd toe amputation Consultation Date/Type/Reason Admit Date/Time Dec 18, 2018 at 04:02 Initial Consult Date 12/18/18 Type of Consult id Requesting Provider: ADRIANA JUSTICE Date/Time of Note DATE: 12/30/18 TIME: 16:22 Exam/Review of Systems Exam Vitals Vital Signs Date Temp Pulse Resp B/P (MAP) Pulse Ox O2 O2 Flow FiO2 Time Delivery Rate 12/30/18 76 16:01 12/30/18 98.3 20 121/62 100 15:25 (81) 12/30/18 Room Air 13:40 12/30/18 3.0 07:38 Intake and Output 12/29/18 12/29/18 12/30/18 1515:00 23:00 07:00 IntakeIntake Total 0 ml OutputOutput Total 3000 ml 0 ml BalanceBalance -3000 ml 0 ml Results Result Diagram: 12/30/18 0458 12/30/18 0458 Results 24hrs Laboratory Tests Test 12/29/18 17:44 12/29/18 18:34 12/29/18 20:24 12/29/18 22:20 Bedside Glucose 132 140 138 White Blood Count 10.1 Red Blood Count 2.78 L Hemoglobin 7.9 L Hematocrit 24.4 L Mean Corpuscular 87.8 Volume Mean Corpuscular 28.4 L Hemoglobin Mean Corpuscular 32.4 Hemoglobin Concent Red Cell 15.9 H Distribution Width Platelet Count 318 Mean Platelet Volume 10.6 H Immature 0.400 Granulocytes % Neutrophils % 81.2 H Lymphocytes % 5.9 L Monocytes % 12.2 H Eosinophils % 0.0 Basophils % 0.3 Nucleated Red Blood 0.0 Cells % Immature 0.040 H Granulocytes # Neutrophils # 8.2 H Lymphocytes # 0.6 L Monocytes # 1.2 H Eosinophils # 0.0 Basophils # 0.0 Nucleated Red Blood 0.0 Cells # Test 12/30/18 02:21 12/30/18 04:58 12/30/18 08:04 12/30/18 11:52 Bedside Glucose 111 106 228 H White Blood Count 7.8 # Red Blood Count 2.80 L Hemoglobin 7.9 L Hematocrit 24.7 L Mean Corpuscular 88.2 Volume Mean Corpuscular 28.2 L Hemoglobin Mean Corpuscular 32.0 Hemoglobin Concent Red Cell 16.2 H Distribution Width Platelet Count 333 Mean Platelet Volume 11.1 H Immature 0.300 Granulocytes % Neutrophils % 65.7 Lymphocytes % 18.8 Monocytes % 14.0 H Eosinophils % 0.3 Basophils % 0.9 Nucleated Red Blood 0.0 Cells % Immature 0.020 Granulocytes # Neutrophils # 5.1 Lymphocytes # 1.5 Monocytes # 1.1 H Eosinophils # 0.0 Basophils # 0.1 Nucleated Red Blood 0.0 Cells # Sodium Level 140 Potassium Level 5.3 H Chloride Level 103 Carbon Dioxide Level 26 Anion Gap 11 Blood Urea Nitrogen 36 #H Creatinine 6.70 #H Est Glomerular 10 L Filtrat Rate mL/min Glucose Level 79 # Calcium Level 9.1 Medications Medication Current Medications Vancomycin HCl (Vanco Iv Per Pharmacy) VANCOMYCIN PER PHARMACY PER PROTOCOL XX ; Start 12/18/18 at 09:30 Hydralazine HCl (Apresoline) 20 mg Q4 PRN IV HIGH BLOOD Last administered on 12/29/18at 15:52; Admin Dose 20 MG; Start 12/18/18 at 09:30 Acetaminophen (Tylenol Tab) 650 mg Q4H PRN PO MILD PAIN(1-3)OR ELEVATED TEMP; Start 12/18/18 at 09:30 Acetaminophen/ Hydrocodone Bitart ([place] (5/325)) 1 tab Q4H PRN PO MODERATE PAIN LEVEL 4-6 Last administered on 12/22/18at 00:00; Admin Dose 1 TAB; Start 12/18/18 at 09:30 Insulin Aspart (Novolog Insulin Pen) NOVOLOG *MILD* ALGORITHM WITH MEALS BEDTIME SC Last administered on 12/30/18at 11:59; Admin Dose 3 UNIT; Start 12/18/18 at 12:00 Aspirin (Halfprin) 81 mg DAILY PO Last administered on 12/30/18 08:04; Admin Dose 81 MG; Start 12/18/18 at 09:30 Atorvastatin Calcium (Lipitor) 80 mg QHS PO Last administered on 12/28/18 20:18; Admin Dose 80 MG; Start 12/18/18 at 21:00 Baclofen (Lioresal) 10 mg TID PO Last administered on 12/30/18 11:51; Admin Dose 10 MG; Start 12/18/18 at 13:00 Clopidogrel Bisulfate (plaVIX) 75 mg DAILY PO Last administered on 12/30/18 08:10; Admin Dose 75 MG; Start 12/18/18 at 09:30 Multivit/Ca Carb/ B Cmplx/FA/Prenat (Amarilis-Christina) 1 tab DAILY PO Last admin istered on 12/30/18 08:03; Admin Dose 1 TAB; Start 12/18/18 at 09:30 Mirtazapine (Remeron) 15 mg HS PO Last administered on 12/28/18 20:20; Admin Dose 15 MG; Start 12/18/18 at 21:00 Paroxetine HCl (Paxil) 10 mg DAILY PO Last administered on 12/30/18 08:04; Admin Dose 10 MG; Start 12/18/18 at 09:30 Zinc Sulfate (Zinc Sulfate) 220 mg DAILY PO Last administered on 12/30/18 08:04; Admin Dose 220 MG; Start 12/18/18 at 09:30 Sevelamer Carbonate (Renvela) 800 mg WITH MEALS PO Last administered on 12/30/18 11:51; Admin Dose 800 MG; Start 12/18/18 at 11:30 Diagnostic Test (Pha) (Accu-Chek) 1 ea 02 XX Last administered on 12/30/18 02:24; Admin Dose 1 EA; Start 12/19/18 at 02:00 Miscellaneous Information 1 ea NOTE XX ; Start 12/18/18 at 13:00 Glucose (Glutose) 15 gm Q15M PRN PO DECREASED GLUCOSE Last administered on 12/19/18 22:39; Admin Dose 15 GM; Start 12/18/18 at 13:00 Glucose (Glutose) 22.5 gm Q15M PRN PO DECREASED GLUCOSE Last administered on 12/19/18at 23:35; Admin Dose 22.5 GM; Start 12/18/18 at 13:00 Dextrose (D50w Syringe) 25 ml Q15M PRN IV DECREASED GLUCOSE; Start 12/18/18 at 13:00 Dextrose (D50w Syringe) 50 ml Q15M PRN IV DECREASED GLUCOSE Last administered on 12/22/18at 07:09; Admin Dose 50 ML; Start 12/18/18 at 13:00 Glucagon (Glucagen) 1 mg Q15M PRN IM DECREASED GLUCOSE; Start 12/18/18 at 13:00 Glucose (Glutose) 15 gm Q15M PRN BUCCAL DECREASED GLUCOSE; Start 12/18/18 at 13 :00 Epoetin Josias-epbx (Retacrit (Esrd)) 8,000 unit MoWeFr@1700 SC Last administered on 12/27/18at 17:43; Admin Dose 8,000 UNIT; Start 12/18/18 at 17:00 Levofloxacin (Levaquin) 500 mg Q48H PO Last administered on 12/30/18at 08:03; Admin Dose 500 MG; Start 12/20/18 at 08:00 Povidone Iodine (Povidone-Iodine) 1 applic BID TOP Last administered on 12/30/18 08:11; Admin Dose 1 APPLIC; Start 12/18/18 at 21:00 Sodium Hypochlorite (Dakins Diluted (1/40)) 1 applic BID TP Last administered on 12/30/18 08:11; Admin Dose 1 APPLIC; Start 12/18/18 at 21:00 Multi-Ingredient Ointment (Eucerin Cream) 1 applic DAILY TOP Last administered on 12/30/18at 08:10; Admin Dose 1 APPLIC; Start 12/19/18 at 10:28 Ondansetron HCl (Zofran Inj) 4 mg Q6H PRN IV NAUSEA AND/OR VOMITING Last administered on 12/23/18at 05:05; Admin Dose 4 MG; Start 12/21/18 at 13:30 Amlodipine Besylate (Norvasc) 5 mg DAILY PO Last administered on 12/30/18at 08:10; Admin Dose 5 MG; Start 12/23/18 at 09:00 Lisinopril (Zestril) 40 mg DAILY PO Last administered on 12/30/18 08:03; Admin Dose 40 MG; Start 12/23/18 at 09:00 Linagliptin (Tradjenta) 5 mg DAILY PO Last administered on 12/30/18 08:05; Admin Dose 5 MG; Start 12/22/18 at 14:30 Bromocriptine Mesylate (Parlodel) 2.5 mg QHS PO Last administered on 12/28/18 20:20; Admin Dose 2.5 MG; Start 12/22/18 at 21:00 Diagnostic Test (Pha) (Accu-Chek) 1 ea 2 HOURS AFTER MEALS XX Last admin istered on 12/29/18 20:33; Admin Dose 1 EA; Start 12/22/18 at 20:00 Diagnostic Test (Pha) (Accu-Chek) 1 ea AC MEALS XX Last administered on 12/29/18 17:52; Admin Dose 1 EA; Start 12/22/18 at 17:30 Vancomycin HCl 250 ml @ 125 mls/hr Q96H IVPB Last administered on 12/27/18 12:03; Admin Dose 125 MLS/HR; Start 12/23/18 at 12:00 Metoprolol Tartrate (Lopressor) 100 mg BID PO Last administered on 12/30/18 08:11; Admin Dose 100 MG; Start 12/26/18 at 21:00 Famotidine (Pepcid Iv) 20 mg BID IV Last administered on 12/30/18 08:05; Admin Dose 20 MG; Start 12/29/18 at 21:00 Insulin Glargine (Lantus) 4 units DAILY@2000 SC ; Start 12/29/18 at 20:00 Morphine Sulfate (morphine) 2 mg Q4H PRN IV SEVERE PAIN LEVEL 7-10 Last administered on 12/30/18 01:45; Admin Dose 2 MG; Start 12/29/18 at 19:00 Miscellaneous Information (*Rx Drug Level Order Reminder*) VANCO TROUGH @ 1,100 ON... 1100 ONCE XX ; Start 12/31/18 at 11:00; Stop 12/31/18 at 11:01 SARABJIT DILLARD NP Dec 30, 2018 16:23
[2018-12-30] MEDS: EPOETIN ALFA-EPBX (ESRD) 4,000 UNIT/ML VIAL SC SCH (17:03)
--- NOTE | 2018-12-30 17:21 | CONS ---
Assessment/Plan Assessment/Plan Problems: (1) Diabetes mellitus type 2 in nonobese Status: Chronic Comment: Good blood sugar control at the present time. From an endocrine standpoint clear for podiatric surgery to proceed (2) Diabetic ulcer of right foot associated with type 2 diabetes mellitus Status: Chronic Comment: At this time stable for podiatry to proceed Qualifiers: Diabetic foot ulcer location: toe Non-pressure ulcer stage: with bone involvement without evidence of necrosis Qualified Codes: E11.621 - Type 2 diabetes mellitus with foot ulcer; L97.516 - Non-pressure chronic ulcer of other part of right foot with bone involvement without evidence of necrosis (3) Foot osteomyelitis, right Status: Chronic Comment: Noted. Qualifiers: Osteomyelitis type: subacute Qualified Codes: M86.271 - Subacute osteomyelitis, right ankle and foot (4) End-stage renal disease on hemodialysis Status: Chronic Comment: Receiving dialysis now. 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 Please see neurology consult notes (10) Peripheral vascular disease Status: Chronic Comment: Secondary risk factor modification Consultation Date/Type/Reason Admit Date/Time Dec 18, 2018 at 04:02 Initial Consult Date 12/22/18 Type of Consult Endocrinology Reason for Consultation Diabetes mellitus type 2 complicated by end-stage renal disease; retinopathy; multi-infarct dementia; osteomyelitis of the lower extremity Requesting Provider: ADRIANA JUSTICE Date/Time of Note DATE: 12/30/18 TIME: 17:17 24 HR Interval Summary Free Text/Dictation No specifically offered complaints Detailed Summary Respiratory: no complaints Cardiovascular: no complaints Endocrine: no complaints Exam/Review of Systems Exam Vitals Vital Signs Date Temp Pulse Resp B/P (MAP) Pulse Ox O2 O2 Flow FiO2 Time Delivery Rate 12/30/18 76 16:41 12/30/18 98.3 20 121/62 100 15:25 (81) 12/30/18 Room Air 13:40 12/30/18 3.0 07:38 Intake and Output 12/29/18 12/29/18 12/30/18 1515:00 23:00 07:00 IntakeIntake Total 0 ml OutputOutput Total 3000 ml 0 ml BalanceBalance -3000 ml 0 ml Exam Charming and dignified -gentleman Constitutional: alert, oriented Respiratory: clear to auscultation, normal air movement Cardiovascular: regular rate and rhythm, nl pulses Gastrointestinal: soft, nl liver, spleen, non-tender Results Result Diagram: 12/30/18 0458 12/30/18 0458 Results 24hrs Laboratory Tests Test 12/29/18 17:44 12/29/18 18:34 12/29/18 20:24 12/29/18 22:20 Bedside Glucose 132 140 138 White Blood Count 10.1 Red Blood Count 2.78 L Hemoglobin 7.9 L Hematocrit 24.4 L Mean Corpuscular 87.8 Volume Mean Corpuscular 28.4 L Hemoglobin Mean Corpuscular 32.4 Hemoglobin Concent Red Cell 15.9 H Distribution Width Platelet Count 318 Mean Platelet Volume 10.6 H Immature 0.400 Granulocytes % Neutrophils % 81.2 H Lymphocytes % 5.9 L Monocytes % 12.2 H Eosinophils % 0.0 Basophils % 0.3 Nucleated Red Blood 0.0 Cells % Immature 0.040 H Granulocytes # Neutrophils # 8.2 H Lymphocytes # 0.6 L Monocytes # 1.2 H Eosinophils # 0.0 Basophils # 0.0 Nucleated Red Blood 0.0 Cells # Test 12/30/18 02:21 12/30/18 04:58 12/30/18 08:04 12/30/18 11:52 Bedside Glucose 111 106 228 H White Blood Count 7.8 # Red Blood Count 2.80 L Hemoglobin 7.9 L Hematocrit 24.7 L Mean Corpuscular 88.2 Volume Mean Corpuscular 28.2 L Hemoglobin Mean Corpuscular 32.0 Hemoglobin Concent Red Cell 16.2 H Distribution Width Platelet Count 333 Mean Platelet Volume 11.1 H Immature 0.300 Granulocytes % Neutrophils % 65.7 Lymphocytes % 18.8 Monocytes % 14.0 H Eosinophils % 0.3 Basophils % 0.9 Nucleated Red Blood 0.0 Cells % Immature 0.020 Granulocytes # Neutrophils # 5.1 Lymphocytes # 1.5 Monocytes # 1.1 H Eosinophils # 0.0 Basophils # 0.1 Nucleated Red Blood 0.0 Cells # Sodium Level 140 Potassium Level 5.3 H Chloride Level 103 Carbon Dioxide Level 26 Anion Gap 11 Blood Urea Nitrogen 36 #H Creatinine 6.70 #H Est Glomerular 10 L Filtrat Rate mL/min Glucose Level 79 # Calcium Level 9.1 Test 12/30/18 17:01 Bedside Glucose 102 Medications Medication Current Medications Vancomycin HCl (Vanco Iv Per Pharmacy) VANCOMYCIN PER PHARMACY PER PROTOCOL XX ; Start 12/18/18 at 09:30 Hydralazine HCl (Apresoline) 20 mg Q4 PRN IV HIGH BLOOD Last administered on 12/29/18 15:52; Admin Dose 20 MG; Start 12/18/18 at 09:30 Acetaminophen (Tylenol Tab) 650 mg Q4H PRN PO MILD PAIN(1-3)OR ELEVATED TEMP; Start 12/18/18 at 09:30 Acetaminophen/ Hydrocodone Bitart ([place] (5/325)) 1 tab Q4H PRN PO MODERATE PAIN LEVEL 4-6 Last administered on 12/22/18 00:00; Admin Dose 1 TAB; Start 12/18/18 at 09:30 Insulin Aspart (Novolog Insulin Pen) NOVOLOG *MILD* ALGORITHM WITH MEALS BEDTIME SC Last administered on 12/30/18 11:59; Admin Dose 3 UNIT; Start 12/18/18 at 12:00 Aspirin (Halfprin) 81 mg DAILY PO Last administered on 12/30/18 08:04; Admin Dose 81 MG; Start 12/18/18 at 09:30 Atorvastatin Calcium (Lipitor) 80 mg QHS PO Last administered on 12/28/18 20:18; Admin Dose 80 MG; Start 12/18/18 at 21:00 Baclofen (Lioresal) 10 mg TID PO Last administered on 12/30/18 11:51; Admin Dose 10 MG; Start 12/18/18 at 13:00 Clopidogrel Bisulfate (plaVIX) 75 mg DAILY PO Last administered on 12/30/18 08:10; Admin Dose 75 MG; Start 12/18/18 at 09:30 Multivit/Ca Carb/ B Cmplx/FA/Prenat (Amarilis-Christina) 1 tab DAILY PO Last administered on 12/30/18 08:03; Admin Dose 1 TAB; Start 12/18/18 at 09:30 Mirtazapine (Remeron) 15 mg HS PO Last administered on 12/28/18at 20:20; Admin Dose 15 MG; Start 12/18/18 at 21:00 Paroxetine HCl (Paxil) 10 mg DAILY PO Last administered on 12/30/18at 08:04; Admin Dose 10 MG; Start 12/18/18 at 09:30 Zinc Sulfate (Zinc Sulfate) 220 mg DAILY PO Last administered on 12/30/18at 08:04; Admin Dose 220 MG; Start 12/18/18 at 09:30 Sevelamer Carbonate (Renvela) 800 mg WITH MEALS PO Last administered on 12/30/18 17:02; Admin Dose 800 MG; Start 12/18/18 at 11:30 Diagnostic Test (Pha) (Accu-Chek) 1 ea 02 XX Last administered on 12/30/18at 02:24; Admin Dose 1 EA; Start 12/19/18 at 02:00 Miscellaneous Information 1 ea NOTE XX ; Start 12/18/18 at 13:00 Glucose (Glutose) 15 gm Q15M PRN PO DECREASED GLUCOSE Last administered on 12/19/18at 22:39; Admin Dose 15 GM; Start 12/18/18 at 13:00 Glucose (Glutose) 22.5 gm Q15M PRN PO DECREASED GLUCOSE Last administered on 12/19/18at 23:35; Admin Dose 22.5 GM; Start 12/18/18 at 13:00 Dextrose (D50w Syringe) 25 ml Q15M PRN IV DECREASED GLUCOSE; Start 12/18/18 at 13:00 Dextrose (D50w Syringe) 50 ml Q15M PRN IV DECREASED GLUCOSE Last administered on 12/22/18at 07:09; Admin Dose 50 ML; Start 12/18/18 at 13:00 Glucagon (Glucagen) 1 mg Q15M PRN IM DECREASED GLUCOSE; Start 12/18/18 at 13:00 Glucose (Glutose) 15 gm Q15M PRN BUCCAL DECREASED GLUCOSE; Start 12/18/18 at 13:00 Epoetin Josias-epbx (Retacrit (Esrd)) 8,000 unit MoWeFr@1700 SC Last administered on 12/30/18at 17:03; Admin Dose 8,000 UNIT; Start 12/18/18 at 17:00 Levofloxacin (Levaquin) 500 mg Q48H PO Last administered on 12/30/18 08:03; Admin Dose 500 MG; Start 12/20/18 at 08:00 Povidone Iodine (Povidone-Iodine) 1 applic BID TOP Last administered on 12/30/18 08:11; Admin Dose 1 APPLIC; Start 12/18/18 at 21:00 Sodium Hypochlorite (Dakins Diluted ()) 1 applic BID TP Last administered o n 12/30/18 08:11; Admin Dose 1 APPLIC; Start 12/18/18 at 21:00 Multi-Ingredient Ointment (Eucerin Cream) 1 applic DAILY TOP Last administered on 12/30/18 08:10; Admin Dose 1 APPLIC; Start 12/19/18 at 10:28 Ondansetron HCl (Zofran Inj) 4 mg Q6H PRN IV NAUSEA AND/OR VOMITING Last administered on 12/23/18 05:05; Admin Dose 4 MG; Start 12/21/18 at 13:30 Amlodipine Besylate (Norvasc) 5 mg DAILY PO Last administered on 12/30/18 08:10; Admin Dose 5 MG; Start 12/23/18 at 09:00 Lisinopril (Zestril) 40 mg DAILY PO Last administered on 12/30/18 08:03; Admin Dose 40 MG; Start 12/23/18 at 09:00 Linagliptin (Tradjenta) 5 mg DAILY PO Last administered on 12/30/18 08:05; Admin Dose 5 MG; Start 12/22/18 at 14:30 Bromocriptine Mesylate (Parlodel) 2.5 mg QHS PO Last administered on 12/28/18 20:20; Admin Dose 2.5 MG; Start 12/22/18 at 21:00 Diagnostic Test (Pha) (Accu-Chek) 1 ea 2 HOURS AFTER MEALS XX Last administered on 12/29/18 20:33; Admin Dose 1 EA; Start 12/22/18 at 20:00 Diagnostic Test (Pha) (Accu-Chek) 1 ea AC MEALS XX Last administered on 12/29/18 17:52; Admin Dose 1 EA; Start 12/22/18 at 17:30 Vancomycin HCl 250 ml @ 125 mls/hr Q96H IVPB Last administered on 12/27/18at 12:03; Admin Dose 125 MLS/HR; Start 12/23/18 at 12:00 Metoprolol Tartrate (Lopressor) 100 mg BID PO Last administered on 12/30/18at 08:11; Admin Dose 100 MG; Start 12/26/18 at 21:00 Famotidine (Pepcid Iv) 20 mg BID IV Last administered on 12/30/18at 08:05; Admin Dose 20 MG; Start 12/29/18 at 21:00 Insulin Glargine (Lantus) 4 units DAILY@2000 SC ; Start 12/29/18 at 20:00 Morphine Sulfate (morphine) 2 mg Q4H PRN IV SEVERE PAIN LEVEL 7-10 Last administered on 12/30/18at 01:45; Admin Dose 2 MG; Start 12/29/18 at 19:00 Miscellaneous Information (*Rx Drug Level Order Reminder*) VANCO TROUGH @ 1,100 ON... 1100 ONCE XX ; Start 12/31/18 at 11:00; Stop 12/31/18 at 11:01 RADHA HENSON MD Dec 30, 2018 17:21
--- NOTE | 2018-12-30 18:33 | PN ---
Date/Time of Note Date/Time of Note DATE: 12/30/18 TIME: 18:30 Assessment/Plan VTE Prophylaxis Risk score (from Ns)>0 risk: 6 SCD applied (from Ns): Yes Pharmacological prophylaxis: other Lines/Catheters IV [facility]ter Type [facility]from [facility] [place] [facility] Urinary Cath still in place: No Assessment/Plan Hospital Course Patient is apparently had episodes of altered mental status over the weekend, patient is currently awake alert with neuro status at his baseline status post hemodialysis today, cleared from internal medicine and cardiology for right second toe amputation podiatry surgery. Assessment/Plan -Level of consciousness, CT of the brain and MRI of the head are negative for acute stroke. Dr. Alfaro is following in neurology consultation. -Right foot ulcer with cellulitis, right second toe ulcer with osteomyelitis and bone exposure. Continue broad-spectrum antibiotics. Dr. Giles is following in infection disease consultation. Dr. Ford following and podiatry consultation. Plan for a right second toe amputation. -Hemodialysis dependent end-stage renal disease. Dr. Agustin is following in nephrology consultation. -Diabetes mellitus type 2. Continue Lantus and NovoLog. -Hyperlipidemia, continue statin. -History of stroke, continue Plavix. Further recommendations based on clinical course. Plan of care discussed with Dr. Perez. Result Diagram: 12/30/18 0458 12/30/18 0458 Results 24hrs Laboratory Tests Test 12/29/18 18:34 12/29/18 20:24 12/29/18 22:20 12/30/18 02:21 White Blood Count 10.1 Red Blood Count 2.78 L Hemoglobin 7.9 L Hematocrit 24.4 L Mean Corpuscular 87.8 Volume Mean Corpuscular 28.4 L Hemoglobin Mean Corpuscular 32.4 Hemoglobin Concent Red Cell 15.9 H Distribution Width Platelet Count 318 Mean Platelet Volume 10.6 H Immature 0.400 Granulocytes % Neutrophils % 81.2 H Lymphocytes % 5.9 L Monocytes % 12.2 H Eosinophils % 0.0 Basophils % 0.3 Nucleated Red Blood 0.0 Cells % Immature 0.040 H Granulocytes # Neutrophils # 8.2 H Lymphocytes # 0.6 L Monocytes # 1.2 H Eosinophils # 0.0 Basophils # 0.0 Nucleated Red Blood 0.0 Cells # Bedside Glucose 140 138 111 Test 12/30/18 04:58 12/30/18 08:04 12/30/18 11:52 12/30/18 17:01 White Blood Count 7.8 # Red Blood Count 2.80 L Hemoglobin 7.9 L Hematocrit 24.7 L Mean Corpuscular 88.2 Volume Mean Corpuscular 28.2 L Hemoglobin Mean Corpuscular 32.0 Hemoglobin Concent Red Cell 16.2 H Distribution Width Platelet Count 333 Mean Platelet Volume 11.1 H Immature 0.300 Granulocytes % Neutrophils % 65.7 Lymphocytes % 18.8 Monocytes % 14.0 H Eosinophils % 0.3 Basophils % 0.9 Nucleated Red Blood 0.0 Cells % Immature 0.020 Granulocytes # Neutrophils # 5.1 Lymphocytes # 1.5 Monocytes # 1.1 H Eosinophils # 0.0 Basophils # 0.1 Nucleated Red Blood 0.0 Cells # Sodium Level 140 Potassium Level 5.3 H Chloride Level 103 Carbon Dioxide Level 26 Anion Gap 11 Blood Urea Nitrogen 36 #H Creatinine 6.70 #H Est Glomerular 10 L Filtrat Rate mL/min Glucose Level 79 # Calcium Level 9.1 Bedside Glucose 106 228 H 102 Exam/Review of Systems Exam Vitals Vital Signs Date Temp Pulse Resp B/P (MAP) Pulse Ox O2 O2 Flow FiO2 Time Delivery Rate 12/30/18 76 16:41 12/30/18 98.3 20 121/62 100 15:25 (81) 12/30/18 Room Air 13:40 12/30/18 3.0 07:38 Intake and Output 12/29/18 12/29/18 12/30/18 1515:00 23:00 07:00 IntakeIntake Total 0 ml OutputOutput Total 3000 ml 0 ml BalanceBalance -3000 ml 0 ml Exam Constitutional: Awake, nonverbal Respiratory: clear to auscultation Cardiovascular: nl pulses Gastrointestinal: soft, non-tender Musculoskeletal: nl extremities to inspection Extremities: normal pulses, other (Left foot diabetic ulcer, left upper extremity AV fistula) Results Results 24hrs Laboratory Tests Test 12/29/18 18:34 12/29/18 20:24 12/29/18 22:20 12/30/18 02:21 White Blood Count 10.1 Red Blood Count 2.78 L Hemoglobin 7.9 L Hematocrit 24.4 L Mean Corpuscular 87.8 Volume Mean Corpuscular 28.4 L Hemoglobin Mean Corpuscular 32.4 Hemoglobin Concent Red Cell 15.9 H Distribution Width Platelet Count 318 Mean Platelet Volume 10.6 H Immature 0.400 Granulocytes % Neutrophils % 81.2 H Lymphocytes % 5.9 L Monocytes % 12.2 H Eosinophils % 0.0 Basophils % 0.3 Nucleated Red Blood 0.0 Cells % Immature 0.040 H Granulocytes # Neutrophils # 8.2 H Lymphocytes # 0.6 L Monocytes # 1.2 H Eosinophils # 0.0 Basophils # 0.0 Nucleated Red Blood 0.0 Cells # Bedside Glucose 140 138 111 Test 12/30/18 04:58 12/30/18 08:04 12/30/18 11:52 12/30/18 17:01 White Blood Count 7.8 # Red Blood Count 2.80 L Hemoglobin 7.9 L Hematocrit 24.7 L Mean Corpuscular 88.2 Volume Mean Corpuscular 28.2 L Hemoglobin Mean Corpuscular 32.0 Hemoglobin Concent Red Cell 16.2 H Distribution Width Platelet Count 333 Mean Platelet Volume 11.1 H Immature 0.300 Granulocytes % Neutrophils % 65.7 Lymphocytes % 18.8 Monocytes % 14.0 H Eosinophils % 0.3 Basophils % 0.9 Nucleated Red Blood 0.0 Cells % Immature 0.020 Granulocytes # Neutrophils # 5.1 Lymphocytes # 1.5 Monocytes # 1.1 H Eosinophils # 0.0 Basophils # 0.1 Nucleated Red Blood 0.0 Cells # Sodium Level 140 Potassium Level 5.3 H Chloride Level 103 Carbon Dioxide Level 26 Anion Gap 11 Blood Urea Nitrogen 36 #H Creatinine 6.70 #H Est Glomerular 10 L Filtrat Rate mL/min Glucose Level 79 # Calcium Level 9.1 Bedside Glucose 106 228 H 102 Medications Medication Current Medications Vancomycin HCl (Vanco Iv Per Pharmacy) VANCOMYCIN PER PHARMACY PER PROTOCOL XX ; Start 12/18/18 at 09:30 Hydralazine HCl (Apresoline) 20 mg Q4 PRN IV HIGH BLOOD Last administered on 12/29/18at 15:52; Admin Dose 20 MG; Start 12/18/18 at 09:30 Acetaminophen (Tylenol Tab) 650 mg Q4H PRN PO MILD PAIN(1-3)OR ELEVATED TEMP; Start 12/18/18 at 09:30 Acetaminophen/ Hydrocodone Bitart ([place] (5/325)) 1 tab Q4H PRN PO MODERATE PAIN LEVEL 4-6 Last administered on 12/22/18 00:00; Admin Dose 1 TAB; Start 12/18/18 at 09:30 Insulin Aspart (Novolog Insulin Pen) NOVOLOG *MILD* ALGORITHM WITH MEALS BEDTIME SC Last administered on 12/30/18 11:59; Admin Dose 3 UNIT; Start 12/18 at 12:00 Aspirin (Halfprin) 81 mg DAILY PO Last administered on 12/30/18 08:04; Admin Dose 81 MG; Start 12/18/18 at 09:30 Atorvastatin Calcium (Lipitor) 80 mg QHS PO Last administered on 12/28/18 20:18; Admin Dose 80 MG; Start 12/18/18 at 21:00 Baclofen (Lioresal) 10 mg TID PO Last administered on 12/30/18 11:51; Admin Dose 10 MG; Start 12/18/18 at 13:00 Clopidogrel Bisulfate (plaVIX) 75 mg DAILY PO Last administered on 12/30/18 08:10; Admin Dose 75 MG; Start 12/18/18 at 09:30 Multivit/Ca Carb/ B Cmplx/FA/Prenat (Amarilis-Christina) 1 tab DAILY PO Last administered on 12/30/18 08:03; Admin Dose 1 TAB; Start 12/18/18 at 09:30 Mirtazapine (Remeron) 15 mg HS PO Last administered on 12/28/18 20:20; Admin Dose 15 MG; Start 12/18/18 at 21:00 Paroxetine HCl (Paxil) 10 mg DAILY PO Last administered on 12/30/18 08:04; Admin Dose 10 MG; Start 12/18/18 at 09:30 Zinc Sulfate (Zinc Sulfate) 220 mg DAILY PO Last administered on 12/30/18 08:04; Admin Dose 220 MG; Start 12/18/18 at 09:30 Sevelamer Carbonate (Renvela) 800 mg WITH MEALS PO Last administered on 12/30/18 17:02; Admin Dose 800 MG; Start 12/18/18 at 11:30 Diagnostic Test (Pha) (Accu-Chek) 1 ea 02 XX Last administered on 12/30/18 02:24; Admin Dose 1 EA; Start 12/19/18 at 02:00 Miscellaneous Information 1 ea NOTE XX ; Start 12/18/18 at 13:00 Glucose (Glutose) 15 gm Q15M PRN PO DECREASED GLUCOSE Last administered on 12/19/18 22:39; Admin Dose 15 GM; Start 12/18/18 at 13:00 Glucose (Glutose) 22.5 gm Q15M PRN PO DECREASED GLUCOSE Last administered on 12/19/18 23:35; Admin Dose 22.5 GM; Start 12/18/18 at 13:00 Dextrose (D50w Syringe) 25 ml Q15M PRN IV DECREASED GLUCOSE; Start 12/18/18 at 13:00 Dextrose (D50w Syringe) 50 ml Q15M PRN IV DECREASED GLUCOSE Last administered on 12/22/18 07:09; Admin Dose 50 ML; Start 12/18/18 at 13:00 Glucagon (Glucagen) 1 mg Q15M PRN IM DECREASED GLUCOSE; Start 12/18/18 at 13:00 Glucose (Glutose) 15 gm Q15M PRN BUCCAL DECREASED GLUCOSE; Start 12/18/18 at 13:00 Epoetin Josias-epbx (Retacrit (Esrd)) 8,000 unit MoWeFr@1700 SC Last administered on 12/30/18 17:03; Admin Dose 8,000 UNIT; Start 12/18/18 at 17:00 Levofloxacin (Levaquin) 500 mg Q48H PO Last administered on 12/30/18 08:03; Admin Dose 500 MG; Start 12/20/18 at 08:00 Povidone Iodine (Povidone-Iodine) 1 applic BID TOP Last administered on 12/30/18 08:11; Admin Dose 1 APPLIC; Start 12/18/18 at 21:00 Sodium Hypochlorite (Dakins Diluted (1/40)) 1 applic BID TP Last administered on 12/30/18 08:11; Admin Dose 1 APPLIC; Start 12/18/18 at 21:00 Multi-Ingredient Ointment (Eucerin Cream) 1 applic DAILY TOP Last administered on 12/30/18 08:10; Admin Dose 1 APPLIC; Start 12/19/18 at 10:28 Ondansetron HCl (Zofran Inj) 4 mg Q6H PRN IV NAUSEA AND/OR VOMITING Last administered on 12/23/18 05:05; Admin Dose 4 MG; Start 12/21/18 at 13:30 Amlodipine Besylate (Norvasc) 5 mg DAILY PO Last administered on 12/30/18 08:10; Admin Dose 5 MG; Start 12/23/18 at 09:00 Lisinopril (Zestril) 40 mg DAILY PO Last administered on 12/30/18 08:03; Admin Dose 40 MG; Start 12/23/18 at 09:00 Linagliptin (Tradjenta) 5 mg DAILY PO Last administered on 12/30/18 08:05; Admin Dose 5 MG; Start 12/22/18 at 14:30 Bromocriptine Mesylate (Parlodel) 2.5 mg QHS PO Last administered on 12/28/18 20:20; Admin Dose 2.5 MG; Start 12/22/18 at 21:00 Diagnostic Test (Pha) (Accu-Chek) 1 ea AC MEALS XX Last administered on 12/29/18 17:52; Admin Dose 1 EA; Start 12/22/18 at 17:30 Vancomycin HCl 250 ml @ 125 mls/hr Q96H IVPB Last administered on 12/27/18at 1 2:03; Admin Dose 125 MLS/HR; Start 12/23/18 at 12:00 Metoprolol Tartrate (Lopressor) 100 mg BID PO Last administered on 12/30/18 08:11; Admin Dose 100 MG; Start 12/26/18 at 21:00 Insulin Glargine (Lantus) 4 units DAILY@2000 SC ; Start 12/29/18 at 20:00 Morphine Sulfate (morphine) 2 mg Q4H PRN IV SEVERE PAIN LEVEL 7-10 Last administered on 12/30/18at 01:45; Admin Dose 2 MG; Start 12/29/18 at 19:00 Miscellaneous Information (*Rx Drug Level Order Reminder*) VANCO TROUGH @ 1,100 ON... 1100 ONCE XX ; Start 12/31/18 at 11:00; Stop 12/31/18 at 11:01 Famotidine (Pepcid) 20 mg DAILY PO ; Start 12/31/18 at 09:00 Cilostazol (Pletal) 50 mg BID PO ; Start 12/30/18 at 21:00 NEL LARSEN Dec 30, 2018 18:33
--- NOTE | 2018-12-30 18:52 | CONS ---
Assessment/Plan Assessment/Plan Hospital Course (Demo Recall) IMPRESSION: 1. Preoperative evaluation prior to possible toe amputation and possible need for further evaluation.-neg trop x 3. NL EF by echo. Ok to proceed with toe amputation under nerve block or MAC at moderate CV risk from cardiac standpoint but have concern for neuological status 2. Hypertension-well controlled 3. History of dyslipidemia. 4. Peripheral arterial disease with nonhealing lower extremity ulcers. 5. Nonhealing lower extremity ulcers. 6. Cellulitis. 7. Diabetes mellitus. 8. Psychiatric disorder. 9. New change in MS-? CVA-head CT 12/20 neg for acute changes. ECG most recent without acute changes. -MS at baseline today Recc: -Now on tele -serial ecg's -Continue BB/CCB and now zestril and follow BP closely and use PRN antihypertensives as necessary -Continue asa/plavix and now started on pletal but would watch for bleeding complications and fgllow slowly downtrending hemoglobin -Continue statin -Continue abx's and f/u cx dta -Continue local wound care -HD as tolerated ongoing today -awaiting podiatric surgery Consultation Date/Type/Reason Admit Date/Time Dec 18, 2018 at 04:02 Initial Consult Date 12/18/18 Type of Consult Cardiology Reason for Consultation HTN Requesting Provider: ADRIANA JUSTICE Date/Time of Note DATE: 12/30/18 TIME: 18:49 Exam/Review of Systems Vital Signs Vitals Vital Signs Date Temp Pulse Resp B/P (MAP) Pulse Ox O2 O2 Flow FiO2 Time Delivery Rate 12/30/18 76 16:41 12/30/18 98.3 20 121/62 100 15:25 (81) 12/30/18 Room Air 13:40 12/30/18 3.0 07:38 Intake and Output 12/29/18 12/29/18 12/30/18 1515:00 23:00 07:00 IntakeIntake Total 0 ml OutputOutput Total 3000 ml 0 ml BalanceBalance -3000 ml 0 ml Exam Exam Review of Systems: CONSTITUTIONAL: No fevers, chills. PULMONARY: No sob CARDIOVASCULAR: No chest pain/palpitations GASTROINTESTINAL: No nausea/vomiting. GENITOURINARY: No hematuria/dysuria. MUSCULOSKELETAL: No myagias/arthalgias, cachectic appearing PSYCHIATRIC: The patient denies depression. NEUROLOGIC: No weakness Constitutional: alert Psych: no complaints Head: normocephalic ENMT: mucosa pink and moist Neck: supple, jvd (9 cm water) Respiratory: clear to auscultation Cardiovascular: regular rate and rhythm Gastrointestinal: soft, non-tender Musculoskeletal: other (legs covered by dressing) Extremities: other Neurological: lethargic (somewhat) Labs Result Diagram: 12/30/18 0458 12/30/18 0458 Results 24hrs Laboratory Tests Test 12/29/18 20:24 12/29/18 22:20 12/30/18 02:21 12/30/18 04:58 Bedside Glucose 140 138 111 White Blood Count 7.8 # Red Blood Count 2.80 L Hemoglobin 7.9 L Hematocrit 24.7 L Mean Corpuscular 88.2 Volume Mean Corpuscular 28.2 L Hemoglobin Mean Corpuscular 32.0 Hemoglobin Concent Red Cell 16.2 H Distribution Width Platelet Count 333 Mean Platelet Volume 11.1 H Immature 0.300 Granulocytes % Neutrophils % 65.7 Lymphocytes % 18.8 Monocytes % 14.0 H Eosinophils % 0.3 Basophils % 0.9 Nucleated Red Blood 0.0 Cells % Immature 0.020 Granulocytes # Neutrophils # 5.1 Lymphocytes # 1.5 Monocytes # 1.1 H Eosinophils # 0.0 Basophils # 0.1 Nucleated Red Blood 0.0 Cells # Sodium Level 140 Potassium Level 5.3 H Chloride Level 103 Carbon Dioxide Level 26 Anion Gap 11 Blood Urea Nitrogen 36 #H Creatinine 6.70 #H Est Glomerular 10 L Filtrat Rate mL/min Glucose Level 79 # Calcium Level 9.1 Test 12/30/18 08:04 12/30/18 11:52 12/30/18 17:01 Bedside Glucose 106 228 H 102 Medications Medications Current Medications Vancomycin HCl (Vanco Iv Per Pharmacy) VANCOMYCIN PER PHARMACY PER PROTOCOL XX ; Start 12/18/18 at 09:30 Hydralazine HCl (Apresoline) 20 mg Q4 PRN IV HIGH BLOOD Last administered on 12/29/18at 15:52; Admin Dose 20 MG; Start 12/18/18 at 09:30 Acetaminophen (Tylenol Tab) 650 mg Q4H PRN PO MILD PAIN(1-3)OR ELEVATED TEMP; Start 12/18/18 at 09:30 Acetaminophen/ Hydrocodone Bitart ([place] (5/325)) 1 tab Q4H PRN PO MODERATE PAIN LEVEL 4-6 Last administered on 12/22/18 00:00; Admin Dose 1 TAB; Start 12/18/18 at 09:30 Insulin Aspart (Novolog Insulin Pen) NOVOLOG *MILD* ALGORITHM WITH MEALS BEDTIME SC Last administered on 12/30/18 11:59; Admin Dose 3 UNIT; Start 12/18/18 at 12:00 Aspirin (Halfprin) 81 mg DAILY PO Last administered on 12/30/18 08:04; Admin Dose 81 MG; Start 12/18/18 at 09:30 Atorvastatin Calcium (Lipitor) 80 mg QHS PO Last administered on 12/28/18 2 0:18; Admin Dose 80 MG; Start 12/18/18 at 21:00 Baclofen (Lioresal) 10 mg TID PO Last administered on 12/30/18 11:51; Admin Dose 10 MG; Start 12/18/18 at 13:00 Clopidogrel Bisulfate (plaVIX) 75 mg DAILY PO Last administered on 12/30/18 08:10; Admin Dose 75 MG; Start 12/18/18 at 09:30 Multivit/Ca Carb/ B Cmplx/FA/Prenat (Amarilis-Christina) 1 tab DAILY PO Last administered on 12/30/18 08:03; Admin Dose 1 TAB; Start 12/18/18 at 09:30 Mirtazapine (Remeron) 15 mg HS PO Last administered on 12/28/18 20:20; Admin Dose 15 MG; Start 12/18/18 at 21:00 Paroxetine HCl (Paxil) 10 mg DAILY PO Last administered on 12/30/18 08:04; Admin Dose 10 MG; Start 12/18/18 at 09:30 Zinc Sulfate (Zinc Sulfate) 220 mg DAILY PO Last administered on 12/30/18 08:04; Admin Dose 220 MG; Start 12/18/18 at 09:30 Sevelamer Carbonate (Renvela) 800 mg WITH MEALS PO Last administered on 12/30/18 17:02; Admin Dose 800 MG; Start 12/18/18 at 11:30 Diagnostic Test (Pha) (Accu-Chek) 1 ea 02 XX Last administered on 12/30/18 02:24; Admin Dose 1 EA; Start 12/19/18 at 02:00 Miscellaneous Information 1 ea NOTE XX ; Start 12/18/18 at 13:00 Glucose (Glutose) 15 gm Q15M PRN PO DECREASED GLUCOSE Last administered on 12/19/18at 22:39; Admin Dose 15 GM; Start 12/18/18 at 13:00 Glucose (Glutose) 22.5 gm Q15M PRN PO DECREASED GLUCOSE Last administered on 12/19/18at 23:35; Admin Dose 22.5 GM; Start 12/18/18 at 13:00 Dextrose (D50w Syringe) 25 ml Q15M PRN IV DECREASED GLUCOSE; Start 12/18/18 at 13:00 Dextrose (D50w Syringe) 50 ml Q15M PRN IV DECREASED GLUCOSE Last administered on 12/22/18at 07:09; Admin Dose 50 ML; Start 12/18/18 at 13:00 Glucagon (Glucagen) 1 mg Q15M PRN IM DECREASED GLUCOSE; Start 12/18/18 at 13:00 Glucose (Glutose) 15 gm Q15M PRN BUCCAL DECREASED GLUCOSE; Start 12/18/18 at 13:00 Epoetin Josias-epbx (Retacrit (Esrd)) 8,000 unit MoWeFr@1700 SC Last administered on 12/30/18at 17:03; Admin Dose 8,000 UNIT; Start 12/18/18 at 17:00 Levofloxacin (Levaquin) 500 mg Q48H PO Last administered on 12/30/18 08:03; Admin Dose 500 MG; Start 12/20/18 at 08:00 Povidone Iodine (Povidone-Iodine) 1 applic BID TOP Last administered on 12/30/18at 08:11; Admin Dose 1 APPLIC; Start 12/18/18 at 21:00 Sodium Hypochlorite (Dakins Diluted (1/40)) 1 applic BID TP Last administered on 12/30/18at 08:11; Admin Dose 1 APPLIC; Start 12/18/18 at 21:00 Multi-Ingredient Ointment (Eucerin Cream) 1 applic DAILY TOP Last administered on 12/30/18at 08:10; Admin Dose 1 APPLIC; Start 12/19/18 at 10:28 Ondansetron HCl (Zofran Inj) 4 mg Q6H PRN IV NAUSEA AND/OR VOMITING Last administered on 12/23/18 05:05; Admin Dose 4 MG; Start 12/21/18 at 13:30 Amlodipine Besylate (Norvasc) 5 mg DAILY PO Last administered on 12/30/18 08:10; Admin Dose 5 MG; Start 12/23/18 at 09:00 Lisinopril (Zestril) 40 mg DAILY PO Last administered on 12/30/18 08:03; Admin Dose 40 MG; Start 12/23/18 at 09:00 Linagliptin (Tradjenta) 5 mg DAILY PO Last administered on 12/30/18 08:05; Admin Dose 5 MG; Start 12/22/18 at 14:30 Bromocriptine Mesylate (Parlodel) 2.5 mg QHS PO Last administered on 12/28/18 20:20; Admin Dose 2.5 MG; Start 12/22/18 at 21:00 Diagnostic Test (Pha) (Accu-Chek) 1 ea AC MEALS XX Last administered on 12/29/18at 17:52; Admin Dose 1 EA; Start 12/22/18 at 17:30 Vancomycin HCl 250 ml @ 125 mls/hr Q96H IVPB Last administered on 12/27/18 12:03; Admin Dose 125 MLS/HR; Start 12/23/18 at 12:00 Metoprolol Tartrate (Lopressor) 100 mg BID PO Last administered on 12/30/18at 08:11; Admin Dose 100 MG; Start 12/26/18 at 21:00 Insulin Glargine (Lantus) 4 units DAILY@2000 SC ; Start 12/29/18 at 20:00 Morphine Sulfate (morphine) 2 mg Q4H PRN IV SEVERE PAIN LEVEL 7-10 Last administered on 12/30/18at 01:45; Admin Dose 2 MG; Start 12/29/18 at 19:00 Miscellaneous Information (*Rx Drug Level Order Reminder*) VANCO TROUGH @ 1,100 ON... 1100 ONCE XX ; Start 12/31/18 at 11:00; Stop 12/31/18 at 11:01 Famotidine (Pepcid) 20 mg DAILY PO ; Start 12/31/18 at 09:00 Cilostazol (Pletal) 50 mg BID PO ; Start 12/30/18 at 21:00 JUWAN TAYLOR 17, 2019 18:52
[2018-12-30] MEDS: CILOSTAZOL 100 MG TAB PO SCH (20:56)
[2018-12-30] MEDS: MIRTAZAPINE 15 MG TAB PO SCH (20:56)
[2018-12-30] MEDS: BROMOCRIPTINE 2.5 MG TAB PO SCH (20:56)
[2018-12-30] MEDS: ATORVASTATIN 80 MG TAB PO SCH (20:57)
[2018-12-30] MEDS: INSULIN GLARGINE [LANTus] (100 UNITS/ML) SYG SC SCH (22:00)
[2018-12-31] VITALS (10 sets, daily range): BP systolic 113–141; BP diastolic 57–66; PULSE 72–83; RESP 19–20
[2018-12-31] MEDS: ACCU-CHEK XX SCH ×4 (02:57→17:18)
--- NOTE | 2018-12-31 07:51 | CONS ---
Consult Date/Type/Reason Admit Date/Time Dec 18, 2018 at 04:02 Initial Consult Date 12/22/18 Requesting Provider: ADRIANA JUSTICE Date/Time of Note DATE: 12/31/18 TIME: 07:49 Subjective NO acute events - pt comfortable - BP in good range now. ROS: No fever, no chills, no nausea, no vomiting, no diarrhea/constipation Objective Vitals Vital Signs Date Temp Pulse Resp B/P (MAP) Pulse Ox O2 O2 Flow FiO2 Time Delivery Rate 12/31/18 98.3 79 20 113/59 100 07:28 (77) 12/30/18 2.0 21:55 12/30/18 Nasal 20:00 Cannula Intake and Output 12/30/18 12/30/18 12/31/18 1515:00 23:00 07:00 IntakeIntake Total 950 ml OutputOutput Total 200 ml 1400 ml BalanceBalance -200 ml -450 ml Exam General: WN/WD/NAD, AOx 2-3 HEENT: Unicetric/atraumatic/EOMI ( follow commands) NECK: JVD elevated, no thyromegaly Lymph: no lymphadenopathy HEART: regular with no S3, II/ systolic murmur at apex LUNGS: Coarse sounds ABD: soft, NT, ND, +BS : Intact Neuro: non focal SKIN: chronic changes EXT: trace edema, poor perfusion Results/Medications Result Diagram: 12/31/1827 12/31/1827 Results 24 hrs Laboratory Tests Test 12/30/18 08:04 12/30/18 11:52 12/30/18 17:01 12/30/18 20:54 Bedside Glucose 106 228 H 102 246 H Test 12/31/18 01:58 12/31/18 05:27 Bedside Glucose 111 White Blood Count 6.0 # Red Blood Count 3.09 L Hemoglobin 8.7 L Hematocrit 28.0 L Mean Corpuscular 90.6 Volume Mean Corpuscular 28.2 L Hemoglobin Mean Corpuscular 31.1 L Hemoglobin Concent Red Cell 16.4 H Distribution Width Platelet Count 353 Mean Platelet Volume 10.9 H Immature 0.300 Granulocytes % Neutrophils % 65.3 Lymphocytes % 15.9 Monocytes % 15.3 H Eosinophils % 2.0 Basophils % 1.2 Nucleated Red Blood 0.0 Cells % Immature 0.020 Granulocytes # Neutrophils # 3.9 Lymphocytes # 1.0 Monocytes # 0.9 Eosinophils # 0.1 Basophils # 0.1 Nucleated Red Blood 0.0 Cells # Sodium Level 141 Potassium Level 4.6 Chloride Level 101 Carbon Dioxide Level 32 H Anion Gap 8 Blood Urea Nitrogen 29 H Creatinine 5.46 H Est Glomerular 13 L Filtrat Rate mL/min Glucose Level 104 Calcium Level 9.4 Phosphorus Level 4.4 Magnesium Level 2.6 H Home Meds Reported Medications Folic Acid/Vitamin B Comp W-C (Renal Multivitamin Tablet) 0.8 Mg Tablet, 1 TAB PO DAILY for 90 Days, #90 12/18/18 Glimepiride* (Glimepiride*) 2 Mg Tablet, 2 MG PO BID for 90 Days, #180 12/18/18 Clopidogrel Bisulfate (Clopidogrel) 75 Mg Tablet, 75 MG PO DAILY for 90 Days, #90 12/18/18 Levofloxacin* (Levofloxacin*) 500 Mg Tablet, 500 MG PO DAILY 12/18/18 Amlodipine Besylate* (Norvasc*) 10 Mg Tablet, 10 MG PO DAILY, TAB 07/12/18 Sevelamer Hcl* (Renagel*) 800 Mg Tablet, 800 MG PO WITH MEALS, TAB 07/12/18 Zinc Sulfate* (Zinc Sulfate*) 220 Mg Cap, 220 MG PO DAILY, CAP 07/12/18 Glipizide* (Glipizide*) 5 Mg Tablet, 5 MG PO AC BREAKFAST DINNER, TAB 07/12/18 Folic Acid/Vitamin B Comp W-C (Nephrocaps Capsule) 1 Mg Capsule, 1 MG PO DAILY, CAP 07/12/18 Atorvastatin* (Atorvastatin*) 80 Mg Tablet, 80 MG PO QHS, #30 TAB 07/12/18 Baclofen* (Baclofen*) 10 Mg Tablet, 10 MG PO TID, TAB 07/12/18 Mirtazapine* (Mirtazapine*) 15 Mg Tablet, 15 MG PO HS, TAB 07/12/18 Aspirin (Low Dose Aspirin) 81 Mg Tablet.dr, 81 MG PO DAILY, #30 TAB 07/12/18 Paroxetine Hcl* (Paxil*) 10 Mg Tablet, 10 MG PO DAILY, TAB 07/12/18 Medications Current Medications Vancomycin HCl (Vanco Iv Per Pharmacy) VANCOMYCIN PER PHARMACY PER PROTOCOL XX ; Start 12/18/18 at 09:30 Hydralazine HCl (Apresoline) 20 mg Q4 PRN IV HIGH BLOOD Last administered on 12/29/18 15:52; Admin Dose 20 MG; Start 12/18/18 at 09:30 Acetaminophen (Tylenol Tab) 650 mg Q4H PRN PO MILD PAIN(1-3)OR ELEVATED TEMP; Start 12/18/18 at 09:30 Acetaminophen/ Hydrocodone Bitart (Bracey (5/325)) 1 tab Q4H PRN PO MODERATE PAIN LEVEL 4-6 Last administered on 12/22/18 00:00; Admin Dose 1 TAB; Start 12/18/18 at 09:30 Insulin Aspart (Novolog Insulin Pen) NOVOLOG *MILD* ALGORITHM WITH MEALS BEDTIME SC Last administered on 12/30/18 21:08; Admin Dose 2 UNIT; Start 12/18/18 at 12:00 Aspirin (Halfprin) 81 mg DAILY PO Last administered on 12/30/18 08:04; Admin Dose 81 MG; Start 12/18/18 at 09:30 Atorvastatin Calcium (Lipitor) 80 mg QHS PO Last administered on 12/30/18 20:57; Admin Dose 80 MG; Start 12/18/18 at 21:00 Baclofen (Lioresal) 10 mg TID PO Last administered on 12/30/18 20:57; Admin Dose 10 MG; Start 12/18/18 at 13:00 Clopidogrel Bisulfate (plaVIX) 75 mg DAILY PO Last administered on 12/30/18 08:10; Admin Dose 75 MG; Start 12/18/18 at 09:30 Multivit/Ca Carb/ B Cmplx/FA/Prenat (Amarilis-Christina) 1 tab DAILY PO Last administered on 12/30/18 08:03; Admin Dose 1 TAB; Start 12/18/18 at 09:30 Mirtazapine (Remeron) 15 mg HS PO Last administered on 12/30/18 20:56; Admin Dose 15 MG; Start 12/18/18 at 21:00 Paroxetine HCl (Paxil) 10 mg DAILY PO Last administered on 12/30/18 08:04; Admin Dose 10 MG; Start 12/18/18 at 09:30 Zinc Sulfate (Zinc Sulfate) 220 mg DAILY PO Last administered on 12/30/18 08:04; Admin Dose 220 MG; Start 12/18/18 at 09:30 Sevelamer Carbonate (Renvela) 800 mg WITH MEALS PO Last administered on 12/30/18at 17:02; Admin Dose 800 MG; Start 12/18/18 at 11:30 Diagnostic Test (Pha) (Accu-Chek) 1 ea 02 XX Last administered on 12/31/18at 02:57; Admin Dose 1 EA; Start 12/19/18 at 02:00 Miscellaneous Information 1 ea NOTE XX ; Start 12/18/18 at 13:00 Glucose (Glutose) 15 gm Q15M PRN PO DECREASED GLUCOSE Last administered on 12/19/18at 22:39; Admin Dose 15 GM; Start 12/18/18 at 13:00 Glucose (Glutose) 22.5 gm Q15M PRN PO DECREASED GLUCOSE Last administered on 12/19/18at 23:35; Admin Dose 22.5 GM; Start 12/18/18 at 13:00 Dextrose (D50w Syringe) 25 ml Q15M PRN IV DECREASED GLUCOSE; Start 12/18/18 at 13:00 Dextrose (D50w Syringe) 50 ml Q15M PRN IV DECREASED GLUCOSE Last administered on 12/22/18at 07:09; Admin Dose 50 ML; Start 12/18/18 at 13:00 Glucagon (Glucagen) 1 mg Q15M PRN IM DECREASED GLUCOSE; Start 12/18/18 at 13:00 Glucose (Glutose) 15 gm Q15M PRN BUCCAL DECREASED GLUCOSE; Start 12/18/18 at 13:00 Epoetin Josias-epbx (Retacrit (Esrd)) 8,000 unit MoWeFr@1700 SC Last administered on 12/30/18at 17:03; Admin Dose 8,000 UNIT; Start 12/18/18 at 17:00 Levofloxacin (Levaquin) 500 mg Q48H PO Last administered on 12/30/18at 08:03; Admin Dose 500 MG; Start 12/20/18 at 08:00 Povidone Iodine (Povidone-Iodine) 1 applic BID TOP Last administered on 12/30/18at 21:00; Admin Dose 1 APPLIC; Start 12/18/18 at 21:00 Sodium Hypochlorite (Dakins Diluted ()) 1 applic BID TP Last administered on 12/30/18 21:00; Admin Dose 1 APPLIC; Start 12/18/18 at 21:00 Multi-Ingredient Ointment (Eucerin Cream) 1 applic DAILY TOP Last administered on 12/30/18 08:10; Admin Dose 1 APPLIC; Start 12/19/18 at 10:28 Ondansetron HCl (Zofran Inj) 4 mg Q6H PRN IV NAUSEA AND/OR VOMITING Last administered on 12/23/18 05:05; Admin Dose 4 MG; Start 12/21/18 at 13:30 Amlodipine Besylate (Norvasc) 5 mg DAILY PO Last administered on 12/30/18 08:10; Admin Dose 5 MG; Start 12/23/18 at 09:00 Lisinopril (Zestril) 40 mg DAILY PO Last administered on 12/30/18 08:03; Admin Dose 40 MG; Start 12/23/18 at 09:00 Linagliptin (Tradjenta) 5 mg DAILY PO Last administered on 12/30/18 08:05; Admin Dose 5 MG; Start 12/22/18 at 14:30 Bromocriptine Mesylate (Parlodel) 2.5 mg QHS PO Last administered on 12/30/18 20:56; Admin Dose 2.5 MG; Start 12/22/18 at 21:00 Diagnostic Test (Pha) (Accu-Chek) 1 ea AC MEALS XX Last administered on 12/29/18 17:52; Admin Dose 1 EA; Start 12/22/18 at 17:30 Vancomycin HCl 250 ml @ 125 mls/hr Q96H IVPB Last administered on 12/27/18 12:03; Admin Dose 125 MLS/HR; Start 12/23/18 at 12:00 Metoprolol Tartrate (Lopressor) 100 mg BID PO Last administered on 12/30/18 20:57; Admin Dose 100 MG; Start 12/26/18 at 21:00 Insulin Glargine (Lantus) 4 units DAILY@2000 SC Last administered on 12/30/18 22:00; Admin Dose 4 UNITS; Start 12/29/18 at 20:00 Morphine Sulfate (morphine) 2 mg Q4H PRN IV SEVERE PAIN LEVEL 7-10 Last administered on 12/30/18 01:45; Admin Dose 2 MG; Start 12/29/18 at 19:00 Miscellaneous Information (*Rx Drug Level Order Reminder*) VANCO TROUGH @ 1,100 ON... 1100 ONCE XX ; Start 12/31/18 at 11:00; Stop 12/31/18 at 11:01 Famotidine (Pepcid) 20 mg DAILY PO ; Start 12/31/18 at 09:00 Cilostazol (Pletal) 50 mg BID PO Last administered on 12/30/18at 20:56; Admin Dose 50 MG; Start 12/30/18 at 21:00 Assessment/Plan Hospital Course (Demo Recall) 1. Preoperative evaluation prior to possible toe amputation and possible need for further evaluation.-neg trop x 3. NL EF by echo. Ok to proceed with toe amputation under nerve block or MAC at moderate CV risk from cardiac standpoint but have concern for neuological status - surgical team follows 2. Hypertension-well controlled - con't to treat medically 3. History of dyslipidemia. 4. Peripheral arterial disease with nonhealing lower extremity ulcers- vascular team follows 5. Nonhealing lower extremity ulcers. 6. Cellulitis - on antibiotics 7. Diabetes mellitus. 8. Psychiatric disorder. 9. New change in MS-? CVA-head CT 12/20 neg for acute changes. ECG most recent without acute changes. -MS at baseline today - stable LAUREN PARMAR MD Dec 31, 2018 07:51
[2018-12-31] MEDS: INSULIN ASPART [NOVOLOG] 3 ML PEN SC SCH ×4 (08:00→21:00)
[2018-12-31] MEDS: METOPROLOL 100 MG TAB PO SCH ×2 (08:13→21:17)
[2018-12-31] MEDS: CILOSTAZOL 100 MG TAB PO SCH ×2 (08:13→21:16)
[2018-12-31] MEDS: SEVELAMER CARBONATE 800 MG TABLET PO SCH ×3 (08:13→17:22)
[2018-12-31] MEDS: PAROXETINE 10 MG TAB PO SCH (08:13)
[2018-12-31] MEDS: MULTIVIT/CA CARB/B CMPLX/FA TAB PO SCH (08:13)
[2018-12-31] MEDS: FAMOTIDINE 20 MG TAB PO SCH (08:13)
[2018-12-31] MEDS: LINAGLIPTIN 5 MG TABLET PO SCH (08:14)
[2018-12-31] MEDS: BACLOFEN 10 MG TAB PO SCH ×3 (08:14→21:16)
[2018-12-31] MEDS: CLOPIDOGREL 75 MG TAB PO SCH (08:14)
[2018-12-31] MEDS: ASPIRIN (EC) 81 MG TAB PO SCH (08:14)
[2018-12-31] MEDS: ZINC SULFATE 220 MG CAP PO SCH (08:14)
[2018-12-31] MEDS: DAKINS 0.0125%(1/40) 473 ML SOLUTION TP SCH ×2 (08:16→21:17)
[2018-12-31] MEDS: EUCERIN 113 GM CR TOP SCH (08:16)
[2018-12-31] MEDS: POVIDONE IODINE 10% 28.4 GM OINT TOP SCH ×2 (08:17→21:17)
[2018-12-31] MEDS: AMLODIPINE 5 MG TAB PO SCH (08:22)
[2018-12-31] MEDS: LISINOPRIL 20 MG TAB PO SCH (08:22)
[2018-12-31] MEDS: VANCOMYCIN 1 GM 250 ML IVPB SCH (12:36)
--- NOTE | 2018-12-31 14:51 | CONS ---
Assessment/Plan Assessment/Plan Hospital Course (Demo Recall) Awake, looks comfortable, no fevers Indwelling's: Left upper extremity AV fistula Allergy: Clindamycin Antimicrobials: Levofloxacin, Vanco Physical examination: Well-developed well-nourished elderly -[place] male in who is in no distress. Head atraumatic normocephalic neck is supple chest rise symmetrical breath sounds diminished bases. Heart: S1-S2. Abdomen soft bowel sounds present. Extremities with bilateral lower extremities dressing intact Assessment: 1. Bilateral lower extremities wounds with cellulitis and osteomyelitis 2. End-stage renal disease 3. Diabetes 4. Diabetic neuropathy Plan: Clinically stable, continue antibiotics, HD per renal, plan for right 2nd toe amputation Consultation Date/Type/Reason Admit Date/Time Dec 18, 2018 at 04:02 Initial Consult Date 12/18/18 Type of Consult id Requesting Provider: ADRIANA JUSTICE Date/Time of Note DATE: 12/31/18 TIME: 14:51 Exam/Review of Systems Exam Vitals Vital Signs Date Temp Pulse Resp B/P (MAP) Pulse Ox O2 O2 Flow FiO2 Time Delivery Rate 12/31/18 83 12:02 12/31/18 98.1 20 114/57 98 11:11 (76) 12/30/18 2.0 21:55 12/30/18 Nasal 20:00 Cannula Intake and Output 12/30/18 12/30/18 12/31/18 1515:00 23:00 07:00 IntakeIntake Total 950 ml OutputOutput Total 200 ml 1400 ml BalanceBalance -200 ml -450 ml Results Result Diagram: 12/31/18 0527 12/31/18 0527 Results 24hrs Laboratory Tests Test 12/30/18 17:01 12/30/18 20:54 12/31/18 01:58 12/31/18 05:27 Bedside Glucose 102 246 H 111 White Blood Count 6.0 # Red Blood Count 3.09 L Hemoglobin 8.7 L Hematocrit 28.0 L Mean Corpuscular 90.6 Volume Mean Corpuscular 28.2 L Hemoglobin Mean Corpuscular 31.1 L Hemoglobin Concent Red Cell 16.4 H Distribution Width Platelet Count 353 Mean Platelet Volume 10.9 H Immature 0.300 Granulocytes % Neutrophils % 65.3 Lymphocytes % 15.9 Monocytes % 15.3 H Eosinophils % 2.0 Basophils % 1.2 Nucleated Red Blood 0.0 Cells % Immature 0.020 Granulocytes # Neutrophils # 3.9 Lymphocytes # 1.0 Monocytes # 0.9 Eosinophils # 0.1 Basophils # 0.1 Nucleated Red Blood 0.0 Cells # Sodium Level 141 Potassium Level 4.6 Chloride Level 101 Carbon Dioxide Level 32 H Anion Gap 8 Blood Urea Nitrogen 29 H Creatinine 5.46 H Est Glomerular 13 L Filtrat Rate mL/min Glucose Level 104 Calcium Level 9.4 Phosphorus Level 4.4 Magnesium Level 2.6 H Test 12/31/18 08:02 12/31/18 10:32 12/31/18 12:03 Bedside Glucose 115 184 Vancomycin Level 11.2 Trough Medications Medication Current Medications Vancomycin HCl (Vanco Iv Per Pharmacy) VANCOMYCIN PER PHARMACY PER PROTOCOL XX ; Start 12/18/18 at 09:30 Hydralazine HCl (Apresoline) 20 mg Q4 PRN IV HIGH BLOOD Last administered on 12/29/18 15:52; Admin Dose 20 MG; Start 12/18/18 at 09:30 Acetaminophen (Tylenol Tab) 650 mg Q4H PRN PO MILD PAIN(1-3)OR ELEVATED TEMP; Start 12/18/18 at 09:30 Acetaminophen/ Hydrocodone Bitart ([place]ock (5/325)) 1 tab Q4H PRN PO MODERATE PAIN LEVEL 4-6 Last administered on 12/22/18 00:00; Admin Dose 1 TAB; Start 12/18/18 at 09:30 Insulin Aspart (Novolog Insulin Pen) NOVOLOG *MILD* ALGORITHM WITH MEALS BEDTIME SC Last administered on 12/31/18 12:08; Admin Dose 2 UNIT; Start 12/18/18 at 12:00 Aspirin (Halfprin) 81 mg DAILY PO Last administered on 12/31/18 08:14; Admin Dose 81 MG; Start 12/18/18 at 09:30 Atorvastatin Calcium (Lipitor) 80 mg QHS PO Last administered on 12/30/18 20:57; Admin Dose 80 MG; Start 12/18/18 at 21:00 Baclofen (Lioresal) 10 mg TID PO Last administered on 12/31/18 12:36; Admin Dose 10 MG; Start 12/18/18 at 13:00 Clopidogrel Bisulfate (plaVIX) 75 mg DAILY PO Last administered on 12/31/18 08:14; Admin Dose 75 MG; Start 12/18/18 at 09:30 Multivit/Ca Carb/ B Cmplx/FA/Prenat (Amarilis-Christina) 1 tab DAILY PO Last administered on 12/31/18at 08:13; Admin Dose 1 TAB; Start 12/18/18 at 09:30 Mirtazapine (Remeron) 15 mg HS PO Last administered on 12/30/18at 20:56; Admin Dose 15 MG; Start 12/18/18 at 21:00 Paroxetine HCl (Paxil) 10 mg DAILY PO Last administered on 12/31/18 08:13; Admin Dose 10 MG; Start 12/18/18 at 09:30 Zinc Sulfate (Zinc Sulfate) 220 mg DAILY PO Last administered on 12/31/18at 0 8:14; Admin Dose 220 MG; Start 12/18/18 at 09:30 Sevelamer Carbonate (Renvela) 800 mg WITH MEALS PO Last administered on 12/31/18at 12:36; Admin Dose 800 MG; Start 12/18/18 at 11:30 Diagnostic Test (Pha) (Accu-Chek) 1 ea 02 XX Last administered on 12/31/18at 02:57; Admin Dose 1 EA; Start 12/19/18 at 02:00 Miscellaneous Information 1 ea NOTE XX ; Start 12/18/18 at 13:00 Glucose (Glutose) 15 gm Q15M PRN PO DECREASED GLUCOSE Last administered on 12/19/18at 22:39; Admin Dose 15 GM; Start 12/18/18 at 13:00 Glucose (Glutose) 22.5 gm Q15M PRN PO DECREASED GLUCOSE Last administered on 12/19/18at 23:35; Admin Dose 22.5 GM; Start 12/18/18 at 13:00 Dextrose (D50w Syringe) 25 ml Q15M PRN IV DECREASED GLUCOSE; Start 12/18/18 at 13:00 Dextrose (D50w Syringe) 50 ml Q15M PRN IV DECREASED GLUCOSE Last administered on 12/22/18at 07:09; Admin Dose 50 ML; Start 12/18/18 at 13:00 Glucagon (Glucagen) 1 mg Q15M PRN IM DECREASED GLUCOSE; Start 12/18/18 at 13:00 Glucose (Glutose) 15 gm Q15M PRN BUCCAL DECREASED GLUCOSE; Start 12/18/18 at 13:00 Epoetin Josias-epbx (Retacrit (Esrd)) 8,000 unit MoWeFr@1700 SC Last administered on 12/30/18 17:03; Admin Dose 8,000 UNIT; Start 12/18/18 at 17:00 Levofloxacin (Levaquin) 500 mg Q48H PO Last administered on 12/30/18 08:03; Admin Dose 500 MG; Start 12/20/18 at 08:00 Povidone Iodine (Povidone-Iodine) 1 applic BID TOP Last administered on 12/31/18 08:17; Admin Dose 1 APPLIC; Start 12/18/18 at 21:00 Sodium Hypochlorite (Dakins Diluted ()) 1 applic BID TP Last administered on 12/31/18 08:16; Admin Dose 1 APPLIC; Start 12/18/18 at 21:00 Multi-Ingredient Ointment (Eucerin Cream) 1 applic DAILY TOP Last administered on 12/31/18 08:16; Admin Dose 1 APPLIC; Start 12/19/18 at 10:28 Ondansetron HCl (Zofran Inj) 4 mg Q6H PRN IV NAUSEA AND/OR VOMITING Last administered on 12/23/18 05:05; Admin Dose 4 MG; Start 12/21/18 at 13:30 Amlodipine Besylate (Norvasc) 5 mg DAILY PO Last administered on 12/31/18 08:22; Admin Dose 5 MG; Start 12/23/18 at 09:00 Lisinopril (Zestril) 40 mg DAILY PO Last administered on 12/31/18 08:22; Admin Dose 40 MG; Start 12/23/18 at 09:00 Linagliptin (Tradjenta) 5 mg DAILY PO Last administered on 12/31/18 08:14; Admin Dose 5 MG; Start 12/22/18 at 14:30 Bromocriptine Mesylate (Parlodel) 2.5 mg QHS PO Last administered on 12/30/18 20:56; Admin Dose 2.5 MG; Start 12/22/18 at 21:00 Diagnostic Test (Pha) (Accu-Chek) 1 ea AC MEALS XX Last administered on 12/29/18 17:52; Admin Dose 1 EA; Start 12/22/18 at 17:30 Vancomycin HCl 250 ml @ 125 mls/hr Q96H IVPB Last administered on 12/31/18at 12:36; Admin Dose 125 MLS/HR; Start 12/23/18 at 12:00 Metoprolol Tartrate (Lopressor) 100 mg BID PO Last administered on 12/31/18 08:13; Admin Dose 100 MG; Start 12/26/18 at 21:00 Insulin Glargine (Lantus) 4 units DAILY@2000 SC Last administered on 12/30/18at 22:00; Admin Dose 4 UNITS; Start 12/29/18 at 20:00 Morphine Sulfate (morphine) 2 mg Q4H PRN IV SEVERE PAIN LEVEL 7-10 Last administered on 12/30/18at 01:45; Admin Dose 2 MG; Start 12/29/18 at 19:00 Famotidine (Pepcid) 20 mg DAILY PO Last administered on 12/31/18 08:13; Admin Dose 20 MG; Start 12/31/18 at 09:00 Cilostazol (Pletal) 50 mg BID PO Last administered on 12/31/18 08:13; Admin Dose 50 MG; Start 12/30/18 at 21:00 SARABJIT DILLARD NP Dec 31, 2018 14:51
--- NOTE | 2018-12-31 15:50 | PN ---
Date/Time of Note Date/Time of Note DATE: 12/31/18 TIME: 15:47 Assessment/Plan VTE Prophylaxis Risk score (from Ns)>0 risk: 4 SCD applied (from Ns): Yes Pharmacological prophylaxis: heparin Lines/Catheters IV [facility]ter Type [facility]from [facility] [place] Urinary Cath still in place: No Assessment/Plan Hospital Course Patient is awake alert and oriented, communicative, cleared by internal medicine, neurology and cardiology for podiatry surgery. Assessment/Plan -Level of consciousness, CT of the brain and MRI of the head are negative for acute stroke. Dr. Alfaro is following in neurology consultation. -Right foot ulcer with cellulitis, right second toe ulcer with osteomyelitis and bone exposure. Continue broad-spectrum antibiotics. Dr. Giles is following in infection disease consultation. Dr. Ford following and podiatry consultation. Plan for a right second toe amputation. -Hemodialysis dependent end-stage renal disease. Dr. Agustin is following in ne phrology consultation. -Diabetes mellitus type 2. Continue Lantus and NovoLog. -Hyperlipidemia, continue statin. -History of stroke, continue Plavix. Further recommendations based on clinical course. Plan of care discussed with Dr. Perez. Result Diagram: 12/31/1852612/31/18526 Results 24hrs Laboratory Tests Test 12/30/18 17:01 12/30/18 20:54 12/31/18 01:58 12/31/18 05:27 Bedside Glucose 102 246 H 111 White Blood Count 6.0 # Red Blood Count 3.09 L Hemoglobin 8.7 L Hematocrit 28.0 L Mean Corpuscular 90.6 Volume Mean Corpuscular 28.2 L Hemoglobin Mean Corpuscular 31.1 L Hemoglobin Concent Red Cell 16.4 H Distribution Width Platelet Count 353 Mean Platelet Volume 10.9 H Immature 0.300 Granulocytes % Neutrophils % 65.3 Lymphocytes % 15.9 Monocytes % 15.3 H Eosinophils % 2.0 Basophils % 1.2 Nucleated Red Blood 0.0 Cells % Immature 0.020 Granulocytes # Neutrophils # 3.9 Lymphocytes # 1.0 Monocytes # 0.9 Eosinophils # 0.1 Basophils # 0.1 Nucleated Red Blood 0.0 Cells # Sodium Level 141 Potassium Level 4.6 Chloride Level 101 Carbon Dioxide Level 32 H Anion Gap 8 Blood Urea Nitrogen 29 H Creatinine 5.46 H Est Glomerular 13 L Filtrat Rate mL/min Glucose Level 104 Calcium Level 9.4 Phosphorus Level 4.4 Magnesium Level 2.6 H Test 12/31/18 08:02 12/31/18 10:32 12/31/18 12:03 Bedside Glucose 115 184 Vancomycin Level 11.2 Trough Exam/Review of Systems Exam Vitals Vital Signs Date Temp Pulse Resp B/P (MAP) Pulse Ox O2 O2 Flow FiO2 Time Delivery Rate 12/31/18 98.1 82 20 129/66 99 15:05 (87) 12/30/18 2.0 21:55 12/30/18 Nasal 20:00 Cannula Intake and Output 12/30/18 12/30/18 12/31/18 1515:00 23:00 07:00 IntakeIntake Total 950 ml OutputOutput Total 200 ml 1400 ml BalanceBalance -200 ml -450 ml Exam Constitutional: awake, alert, communicative Respiratory: clear to auscultation Cardiovascular: nl pulses Gastrointestinal: soft, non-tender Musculoskeletal: nl extremities to inspection Extremities: normal pulses, other (Left foot diabetic ulcer, left upper extremity AV fistula) Results Results 24hrs Laboratory Tests Test 12/30/18 17:01 12/30/18 20:54 12/31/18 01:58 12/31/18 05:27 Bedside Glucose 102 246 H 111 White Blood Count 6.0 # Red Blood Count 3.09 L Hemoglobin 8.7 L Hematocrit 28.0 L Mean Corpuscular 90.6 Volume Mean Corpuscular 28.2 L Hemoglobin Mean Corpuscular 31.1 L Hemoglobin Concent Red Cell 16.4 H Distribution Width Platelet Count 353 Mean Platelet Volume 10.9 H Immature 0.300 Granulocytes % Neutrophils % 65.3 Lymphocytes % 15.9 Monocytes % 15.3 H Eosinophils % 2.0 Basophils % 1.2 Nucleated Red Blood 0.0 Cells % Immature 0.020 Granulocytes # Neutrophils # 3.9 Lymphocytes # 1.0 Monocytes # 0.9 Eosinophils # 0.1 Basophils # 0.1 Nucleated Red Blood 0.0 Cells # Sodium Level 141 Potassium Level 4.6 Chloride Level 101 Carbon Dioxide Level 32 H Anion Gap 8 Blood Urea Nitrogen 29 H Creatinine 5.46 H Est Glomerular 13 L Filtrat Rate mL/min Glucose Level 104 Calcium Level 9.4 Phosphorus Level 4.4 Magnesium Level 2.6 H Test 12/31/18 08:02 12/31/18 10:32 12/31/18 12:03 Bedside Glucose 115 184 Vancomycin Level 11.2 Trough Medications Medication Current Medications Vancomycin HCl (Vanco Iv Per Pharmacy) VANCOMYCIN PER PHARMACY PER PROTOCOL XX ; Start 12/18/18 at 09:30 Hydralazine HCl (Apresoline) 20 mg Q4 PRN IV HIGH BLOOD Last administered on 12/29/18 15:52; Admin Dose 20 MG; Start 12/18/18 at 09:30 Acetaminophen (Tylenol Tab) 650 mg Q4H PRN PO MILD PAIN(1-3)OR ELEVATED TEMP; Start 12/18/18 at 09:30 Acetaminophen/ Hydrocodone Bitart ([place] (5/325)) 1 tab Q4H PRN PO MODERATE PAIN LEVEL 4-6 Last administered on 12/22/18 00:00; Admin Dose 1 TAB; Start 12/18/18 at 09:30 Insulin Aspart (Novolog Insulin Pen) NOVOLOG *MILD* ALGORITHM WITH MEALS BEDTIME SC Last administered on 12/31/18 12:08; Admin Dose 2 UNIT; Start 12/18/18 at 12:00 Aspirin (Halfprin) 81 mg DAILY PO Last administered on 12/31/18 08:14; Admin Dose 81 MG; Start 12/18/18 at 09:30 Atorvastatin Calcium (Lipitor) 80 mg QHS PO Last administered on 12/30/18 20:57; Admin Dose 80 MG; Start 12/18/18 at 21:00 Baclofen (Lioresal) 10 mg TID PO Last administered on 12/31/18 12:36; Admin Dose 10 MG; Start 12/18/18 at 13:00 Clopidogrel Bisulfate (plaVIX) 75 mg DAILY PO Last administered on 12/31/18 08:14; Admin Dose 75 MG; Start 12/18/18 at 09:30 Multivit/Ca Carb/ B Cmplx/FA/Prenat (Amarilis-Christina) 1 tab DAILY PO Last administered on 12/31/18 08:13; Admin Dose 1 TAB; Start 12/18/18 at 09:30 Mirtazapine (Remeron) 15 mg HS PO Last administered on 12/30/18 20:56; Admin Dose 15 MG; Start 12/18/18 at 21:00 Paroxetine HCl (Paxil) 10 mg DAILY PO Last administered on 12/31/18 08:13; Admin Dose 10 MG; Start 12/18/18 at 09:30 Zinc Sulfate (Zinc Sulfate) 220 mg DAILY PO Last administered on 12/31/18 08:14; Admin Dose 220 MG; Start 12/18/18 at 09:30 Sevelamer Carbonate (Renvela) 800 mg WITH MEALS PO Last administered on 12/31/18 12:36; Admin Dose 800 MG; Start 12/18/18 at 11:30 Diagnostic Test (Pha) (Accu-Chek) 1 ea 02 XX Last administered on 12/31/18at 02:57; Admin Dose 1 EA; Start 12/19/18 at 02:00 Miscellaneous Information 1 ea NOTE XX ; Start 12/18/18 at 13:00 Glucose (Glutose) 15 gm Q15M PRN PO DECREASED GLUCOSE Last administered on 12/19/18 22:39; Admin Dose 15 GM; Start 12/18/18 at 13:00 Glucose (Glutose) 22.5 gm Q15M PRN PO DECREASED GLUCOSE Last administered on 12/19/18 23:35; Admin Dose 22.5 GM; Start 12/18/18 at 13:00 Dextrose (D50w Syringe) 25 ml Q15M PRN IV DECREASED GLUCOSE; Start 12/18/18 at 13:00 Dextrose (D50w Syringe) 50 ml Q15M PRN IV DECREASED GLUCOSE Last administered on 12/22/18 07:09; Admin Dose 50 ML; Start 12/18/18 at 13:00 Glucagon (Glucagen) 1 mg Q15M PRN IM DECREASED GLUCOSE; Start 12/18/18 at 13:00 Glucose (Glutose) 15 gm Q15M PRN BUCCAL DECREASED GLUCOSE; Start 12/18/18 at 13:00 Epoetin Josias-epbx (Retacrit (Esrd)) 8,000 unit MoWeFr@1700 SC Last administered on 12/30/18 17:03; Admin Dose 8,000 UNIT; Start 12/18/18 at 17:00 Levofloxacin (Levaquin) 500 mg Q48H PO Last administered on 12/30/18 08:03; Admin Dose 500 MG; Start 12/20/18 at 08:00 Povidone Iodine (Povidone-Iodine) 1 applic BID TOP Last administered on 12/31/18 08:17; Admin Dose 1 APPLIC; Start 12/18/18 at 21:00 Sodium Hypochlorite (Dakins Diluted ()) 1 applic BID TP Last administered on 12/31/18 08:16; Admin Dose 1 APPLIC; Start 12/18/18 at 21:00 Multi-Ingredient Ointment (Eucerin Cream) 1 applic DAILY TOP Last administered on 12/31/18 08:16; Admin Dose 1 APPLIC; Start 12/19/18 at 10:28 Ondansetron HCl (Zofran Inj) 4 mg Q6H PRN IV NAUSEA AND/OR VOMITING Last administered on 12/23/18 05:05; Admin Dose 4 MG; Start 12/21/18 at 13:30 Amlodipine Besylate (Norvasc) 5 mg DAILY PO Last administered on 12/31/18 08:22; Admin Dose 5 MG; Start 12/23/18 at 09:00 Lisinopril (Zestril) 40 mg DAILY PO Last administered on 12/31/18 08:22; Admin Dose 40 MG; Start 12/23/18 at 09:00 Linagliptin (Tradjenta) 5 mg DAILY PO Last administered on 12/31/18 08:14; Admin Dose 5 MG; Start 12/22/18 at 14:30 Bromocriptine Mesylate (Parlodel) 2.5 mg QHS PO Last administered on 12/30/18 20:56; Admin Dose 2.5 MG; Start 12/22/18 at 21:00 Diagnostic Test (Pha) (Accu-Chek) 1 ea AC MEALS XX Last administered on 12/29/18 17:52; Admin Dose 1 EA; Start 12/22/18 at 17:30 Vancomycin HCl 250 ml @ 125 mls/hr Q96H IVPB Last administered on 12/31/18 12:36; Admin Dose 125 MLS/HR; Start 12/23/18 at 12:00 Metoprolol Tartrate (Lopressor) 100 mg BID PO Last administered on 12/31/18 08:13; Admin Dose 100 MG; Start 12/26/18 at 21:00 Insulin Glargine (Lantus) 4 units DAILY@2000 SC Last administered on 12/30/18 22:00; Admin Dose 4 UNITS; Start 12/29/18 at 20:00 Morphine Sulfate (morphine) 2 mg Q4H PRN IV SEVERE PAIN LEVEL 7-10 Last administered on 12/30/18 01:45; Admin Dose 2 MG; Start 12/29/18 at 19:00 Famotidine (Pepcid) 20 mg DAILY PO Last administered on 12/31/18 08:13; Admin Dose 20 MG; Start 12/31/18 at 09:00 Cilostazol (Pletal) 50 mg BID PO Last administered on 12/31/18 08:13; Admin Dose 50 MG; Start 12/30/18 at 21:00 NEL LARSEN Dec 31, 2018 15:50
--- NOTE | 2018-12-31 17:34 | CONS ---
Assessment/Plan Assessment/Plan Problems: (1) Diabetes mellitus type 2 in nonobese Status: Chronic Comment: Adequate glycemic control on the present regimen. From an endocrine standpoint clear for surgery (2) Diabetic ulcer of right foot associated with type 2 diabetes mellitus Status: Chronic Comment: As per podiatric surgery. Please note I have had opportunity and pleasure to speak to Dr. Ford about this. 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 Status: Chronic Comment: Noted and stable, maximum secondary risk factor prevention (5) End-stage renal disease on hemodialysis Status: Chronic Comment: Continue with dialysis as per nephrology (6) Hypertension Status: Chronic Comment: Adequate control Qualifiers: Hypertension type: essential hypertension Qualified Codes: I10 - Essential (primary) hypertension (7) Hyperlipidemia Status: Chronic Comment: On full dose therapy Qualifiers: Hyperlipidemia type: pure hypercholesterolemia Qualified Codes: E78.00 - Pure hypercholesterolemia, unspecified (8) Grade I diastolic dysfunction Status: Chronic Comment: Blood pressure and rate control (9) Peripheral vascular disease Status: Chronic Comment: Noted. (10) Dysthymia Status: Chronic Comment: Noted. CC: MELANIA PIRES MD; JUWAN TAYLOR; SARABJIT DILLARD MANAGER CARE MANAGEMENT; BLAINE FORD DPM; RUFUS VEGA DO; NEL LARSEN ; Consultation Date/Type/Reason Admit Date/Time Dec 18, 2018 at 04:02 Initial Consult Date 12/22/18 Type of Consult Endocrinology Reason for Consultation Diabetes mellitus type 2 with end-stage renal disease; diabetic foot ulcer; multi-infarct dementia Requesting Provider: ADRIANA JUSTICE Date/Time of Note DATE: 12/31/18 TIME: 17:29 24 HR Interval Summary Free Text/Dictation Patient is curious about when he will be able to have surgery. Constitutional: no complaints Detailed Summary Cardiovascular: no complaints Gastrointestinal: no complaints Exam/Review of Systems Exam Vitals Vital Signs Date Temp Pulse Resp B/P (MAP) Pulse Ox O2 O2 Flow FiO2 Time Delivery Rate 12/31/18 81 16:13 12/31/18 98.1 20 129/66 99 15:05 (87) 12/30/18 2.0 21:55 12/30/18 Nasal 20:00 Cannula Intake and Output 12/30/18 12/30/18 12/31/18 1515:00 23:00 07:00 IntakeIntake Total 950 ml OutputOutput Total 200 ml 1400 ml BalanceBalance -200 ml -450 ml Exam Extremely dignified male, nonambulatory Constitutional: alert Respiratory: clear to auscultation, normal air movement Cardiovascular: regular rate and rhythm, nl pulses Gastrointestinal: soft, nl liver, spleen, non-tender Results Result Diagram: 12/31/18 0527 12/31/18 0527 Results 24hrs Laboratory Tests Test 12/30/18 20:54 12/31/18 01:58 12/31/18 05:27 12/31/18 08:02 Bedside Glucose 246 H 111 115 White Blood Count 6.0 # Red Blood Count 3.09 L Hemoglobin 8.7 L Hematocrit 28.0 L Mean Corpuscular 90.6 Volume Mean Corpuscular 28.2 L Hemoglobin Mean Corpuscular 31.1 L Hemoglobin Concent Red Cell 16.4 H Distribution Width Platelet Count 353 Mean Platelet Volume 10.9 H Immature 0.300 Granulocytes % Neutrophils % 65.3 Lymphocytes % 15.9 Monocytes % 15.3 H Eosinophils % 2.0 Basophils % 1.2 Nucleated Red Blood 0.0 Cells % Immature 0.020 Granulocytes # Neutrophils # 3.9 Lymphocytes # 1.0 Monocytes # 0.9 Eosinophils # 0.1 Basophils # 0.1 Nucleated Red Blood 0.0 Cells # Sodium Level 141 Potassium Level 4.6 Chloride Level 101 Carbon Dioxide Level 32 H Anion Gap 8 Blood Urea Nitrogen 29 H Creatinine 5.46 H Est Glomerular 13 L Filtrat Rate mL/min Glucose Level 104 Calcium Level 9.4 Phosphorus Level 4.4 Magnesium Level 2.6 H Test 12/31/18 10:32 12/31/18 12:03 12/31/18 16:59 Vancomycin Level 11.2 Trough Bedside Glucose 184 144 Medications Medication Current Medications Vancomycin HCl (Vanco Iv Per Pharmacy) VANCOMYCIN PER PHARMACY PER PROTOCOL XX ; Start 12/18/18 at 09:30 Hydralazine HCl (Apresoline) 20 mg Q4 PRN IV HIGH BLOOD Last administered on 12/29/18 15:52; Admin Dose 20 MG; Start 12/18/18 at 09:30 Acetaminophen (Tylenol Tab) 650 mg Q4H PRN PO MILD PAIN(1-3)OR ELEVATED TEMP; Start 12/18/18 at 09:30 Acetaminophen/ Hydrocodone Bitart ([place] (5/325)) 1 tab Q4H PRN PO MODERATE PAIN LEVEL 4-6 Last administered on 12/22/18 00:00; Admin Dose 1 TAB; Start 12/18/18 at 09:30 Insulin Aspart (Novolog Insulin Pen) NOVOLOG *MILD* ALGORITHM WITH MEALS BEDTIME SC Last administered on 12/31/18 17:20; Admin Dose 1 UNIT; Start 12/18/18 at 12:00 Aspirin (Halfprin) 81 mg DAILY PO Last administered on 12/31/18 08:14; Admin Dose 81 MG; Start 12/18/18 at 09:30 Atorvastatin Calcium (Lipitor) 80 mg QHS PO Last administered on 12/30/18 20:57; Admin Dose 80 MG; Start 12/18/18 at 21:00 Baclofen (Lioresal) 10 mg TID PO Last administered on 12/31/18 12:36; Admin Dose 10 MG; Start 12/18/18 at 13:00 Clopidogrel Bisulfate (plaVIX) 75 mg DAILY PO Last administered on 12/31/18 08:14; Admin Dose 75 MG; Start 12/18/18 at 09:30 Multivit/Ca Carb/ B Cmplx/FA/Prenat (Amarilis-Christina) 1 tab DAILY PO Last administered on 12/31/18 08:13; Admin Dose 1 TAB; Start 12/18/18 at 09:30 Mirtazapine (Remeron) 15 mg HS PO Last administered on 12/30/18 20:56; Admin Dose 15 MG; Start 12/18/18 at 21:00 Paroxetine HCl (Paxil) 10 mg DAILY PO Last administered on 12/31/18 08:13; Admin Dose 10 MG; Start 12/18/18 at 09:30 Zinc Sulfate (Zinc Sulfate) 220 mg DAILY PO Last administered on 12/31/18 08:14; Admin Dose 220 MG; Start 12/18/18 at 09:30 Sevelamer Carbonate (Renvela) 800 mg WITH MEALS PO Last administered on 12/31/18 17:22; Admin Dose 800 MG; Start 12/18/18 at 11:30 Diagnostic Test (Pha) (Accu-Chek) 1 ea 02 XX Last administered on 12/31/18at 02:57; Admin Dose 1 EA; Start 12/19/18 at 02:00 Miscellaneous Information 1 ea NOTE XX ; Start 12/18/18 at 13:00 Glucose (Glutose) 15 gm Q15M PRN PO DECREASED GLUCOSE Last administered on 12/19/18 22:39; Admin Dose 15 GM; Start 12/18/18 at 13:00 Glucose (Glutose) 22.5 gm Q15M PRN PO DECREASED GLUCOSE Last administered on 12/19/18at 23:35; Admin Dose 22.5 GM; Start 12/18/18 at 13:00 Dextrose (D50w Syringe) 25 ml Q15M PRN IV DECREASED GLUCOSE; Start 12/18/18 at 13:00 Dextrose (D50w Syringe) 50 ml Q15M PRN IV DECREASED GLUCOSE Last administered on 12/22/18at 07:09; Admin Dose 50 ML; Start 12/18/18 at 13:00 Glucagon (Glucagen) 1 mg Q15M PRN IM DECREASED GLUCOSE; Start 12/18/18 at 13:00 Glucose (Glutose) 15 gm Q15M PRN BUCCAL DECREASED GLUCOSE; Start 12/18/18 at 13:00 Epoetin Josias-epbx (Retacrit (Esrd)) 8,000 unit MoWeFr@1700 SC Last administered on 12/30/18at 17:03; Admin Dose 8,000 UNIT; Start 12/18/18 at 17:00 Levofloxacin (Levaquin) 500 mg Q48H PO Last administered on 12/30/18 08:03; Admin Dose 500 MG; Start 12/20/18 at 08:00 Povidone Iodine (Povidone-Iodine) 1 applic BID TOP Last administered on at 08:17; Admin Dose 1 APPLIC; Start 12/18/18 at 21:00 Sodium Hypochlorite (Dakins Diluted (1/40)) 1 applic BID TP Last administered on 12/31/18 08:16; Admin Dose 1 APPLIC; Start 12/18/18 at 21:00 Multi-Ingredient Ointment (Eucerin Cream) 1 applic DAILY TOP Last administered on 12/31/18 08:16; Admin Dose 1 APPLIC; Start 12/19/18 at 10:28 Ondansetron HCl (Zofran Inj) 4 mg Q6H PRN IV NAUSEA AND/OR VOMITING Last administered on 12/23/18 05:05; Admin Dose 4 MG; Start 12/21/18 at 13:30 Amlodipine Besylate (Norvasc) 5 mg DAILY PO Last administered on 12/31/18 08:22; Admin Dose 5 MG; Start 12/23/18 at 09:00 Lisinopril (Zestril) 40 mg DAILY PO Last administered on 12/31/18 08:22; Admin Dose 40 MG; Start 12/23/18 at 09:00 Linagliptin (Tradjenta) 5 mg DAILY PO Last administered on 12/31/18 08:14; Admin Dose 5 MG; Start 12/22/18 at 14:30 Bromocriptine Mesylate (Parlodel) 2.5 mg QHS PO Last administered on 12/30/18 20:56; Admin Dose 2.5 MG; Start 12/22/18 at 21:00 Diagnostic Test (Pha) (Accu-Chek) 1 ea AC MEALS XX Last administered on 12/29/18 17:52; Admin Dose 1 EA; Start 12/22/18 at 17:30 Vancomycin HCl 250 ml @ 125 mls/hr Q96H IVPB Last administered on 12/31/18 12:36; Admin Dose 125 MLS/HR; Start 12/23/18 at 12:00 Metoprolol Tartrate (Lopressor) 100 mg BID PO Last administered on 12/31/18 08:13; Admin Dose 100 MG; Start 12/26/18 at 21:00 Insulin Glargine (Lantus) 4 units DAILY@2000 SC Last administered on 12/30/18 22:00; Admin Dose 4 UNITS; Start 12/29/18 at 20:00 Morphine Sulfate (morphine) 2 mg Q4H PRN IV SEVERE PAIN LEVEL 7-10 Last administered on 12/30/18at 01:45; Admin Dose 2 MG; Start 12/29/18 at 19:00 Famotidine (Pepcid) 20 mg DAILY PO Last administered on 12/31/18 08:13; Admin Dose 20 MG; Start 12/31/18 at 09:00 Cilostazol (Pletal) 50 mg BID PO Last administered on 12/31/18at 08:13; Admin Dose 50 MG; Start 12/30/18 at 21:00 RADHA HENSON MD Dec 31, 2018 17:34
--- NOTE | 2018-12-31 20:30 | PN ---
DATE: 12/31/2018 SUBJECTIVE: The patient is stable. No events overnight. OBJECTIVE: VITAL SIGNS: Blood pressure is 142/57, pulse 81, respirations 20, temperature 98.1. HEENT: Head is normocephalic. NECK: Supple. HEART: Regular rate. LUNGS: Show diminished breath sounds at the base. ABDOMEN: Soft, nontender to palpation without rebound or guarding. EXTREMITIES: Negative for clubbing, cyanosis, no edema. DERMATOLOGIC: No rashes. MUSCULOSKELETAL: No joint effusion. NEUROLOGIC: No changes. MEDICATIONS: Reviewed. LABORATORY DATA: Has been reviewed. ASSESSMENT AND PLAN: 1. Endstage renal disease. The patient had hemodialysis yesterday, going for dialysis again tomorro w. 2. Hyperkalemia. 3. Dialysis with low potassium bath. 4. Anemia. Monitor H and H levels. Continue Epogen. 5. ____. Monitor calcium and phosphorus levels. 6. Diabetic foot ulcer. Continue current antibiotic regimen. Continue wound care. 7. Diabetes. Continue current insulin management. 8. History of cerebrovascular accident. Continue medical management. 9. Encephalopathy. Continue to monitor. Follow up with neurology. 10. Hypertension. Continue current blood pressure regimen. 11. Dyslipidemia. Continue statin therapy. 12. Possible psychiatric disorder. Continue to monitor. Dictated By: RUFUS CHERY/AMADEO Conf#: [id number] DID#: [id number]
[2018-12-31] MEDS: BROMOCRIPTINE 2.5 MG TAB PO SCH (21:16)
[2018-12-31] MEDS: ATORVASTATIN 80 MG TAB PO SCH (21:16)
[2018-12-31] MEDS: MIRTAZAPINE 15 MG TAB PO SCH (21:17)
[2018-12-31] MEDS: INSULIN GLARGINE [LANTus] (100 UNITS/ML) SYG SC SCH (21:33)
[2019-01-01] VITALS (24 sets, daily range): BP systolic 95–183; BP diastolic 47–86; PULSE 79–105; RESP 15–20
[2019-01-01] MEDS: ACCU-CHEK XX SCH ×4 (02:00→17:44)
[2019-01-01] MEDS: INSULIN ASPART [NOVOLOG] 3 ML PEN SC SCH ×4 (08:45→21:13)
[2019-01-01] MEDS: LISINOPRIL 20 MG TAB PO SCH (08:58)
[2019-01-01] MEDS: SEVELAMER CARBONATE 800 MG TABLET PO SCH ×3 (08:58→17:43)
[2019-01-01] MEDS: AMLODIPINE 5 MG TAB PO SCH (08:59)
[2019-01-01] MEDS: FAMOTIDINE 20 MG TAB PO SCH (08:59)
[2019-01-01] MEDS: ZINC SULFATE 220 MG CAP PO SCH (08:59)
[2019-01-01] MEDS: LEVOFLOXACIN 500 MG TAB PO SCH (08:59)
[2019-01-01] MEDS: ASPIRIN (EC) 81 MG TAB PO SCH (08:59)
[2019-01-01] MEDS: CLOPIDOGREL 75 MG TAB PO SCH (08:59)
[2019-01-01] MEDS: CILOSTAZOL 100 MG TAB PO SCH ×2 (08:59→20:44)
[2019-01-01] MEDS: DAKINS 0.0125%(1/40) 473 ML SOLUTION TP SCH ×2 (09:00→21:21)
[2019-01-01] MEDS: BACLOFEN 10 MG TAB PO SCH ×3 (09:00→20:44)
[2019-01-01] MEDS: LINAGLIPTIN 5 MG TABLET PO SCH (09:00)
[2019-01-01] MEDS: METOPROLOL 100 MG TAB PO SCH ×2 (09:00→20:59)
[2019-01-01] MEDS: PAROXETINE 10 MG TAB PO SCH (09:00)
[2019-01-01] MEDS: MULTIVIT/CA CARB/B CMPLX/FA TAB PO SCH (09:00)
[2019-01-01] MEDS: POVIDONE IODINE 10% 28.4 GM OINT TOP SCH ×2 (09:01→21:22)
[2019-01-01] MEDS: EUCERIN 113 GM CR TOP SCH (09:01)
--- NOTE | 2019-01-01 12:12 | PN ---
Date/Time of Note Date/Time of Note DATE: 01/01/19 TIME: 12:11 Assessment/Plan VTE Prophylaxis Risk score (from Ns)>0 risk: 4 SCD applied (from Ns): No Lines/Catheters IV Catheter Type (from Nrs): Saline Lock Urinary Cath still in place: No Assessment/Plan Hospital Course Patient is awake alert and oriented, communicative, cleared by internal medicine, neurology and cardiology for podiatry surgery. Assessment/Plan -Level of consciousness, CT of the brain and MRI of the head are negative for acute stroke. Dr. Alfaro is following in neurology consultation. -Right foot ulcer with cellulitis, right second toe ulcer with osteomyelitis and bone exposure. Continue broad-spectrum antibiotics. Dr. Giles is following in infection disease consultation. Dr. Ford following and podiatry consultation. Plan for a right second toe amputation. -Hemodialysis dependent end-stage renal disease. Dr. Agustin is following in nephrology consultation. -Diabetes mellitus type 2. Continue Lantus and NovoLog. -Hyperlipidemia, continue statin. -History of stroke, continue Plavix. Further recommendations based on clinical course. Plan of care discussed with Dr. Perez. Result Diagram: 12/31/1827 12/31/18526 Results 24hrs Laboratory Tests Test 12/31/18 16:59 12/31/18 21:19 01/01/19 07:45 01/01/19 11:59 Bedside Glucose 144 177 155 157 Exam/Review of Systems Exam Vitals Vital Signs Date Temp Pulse Resp B/P (MAP) Pulse Ox O2 O2 Flow FiO2 Time Delivery Rate 01/01/19 82 12:02 01/01/19 97.4 15 120/68 98 Nasal 11:56 (85) Cannula 01/01/19 3.0 08:00 Intake and Output 12/31/18 12/31/18 01/01/19 1515:00 23:00 07:00 IntakeIntake Total 400 ml 650 ml 200 ml BalanceBalance 400 ml 650 ml 200 ml Exam Constitutional: awake, alert, communicative Respiratory: clear to auscultation Cardiovascular: nl pulses Gastrointestinal: soft, non-tender Musculoskeletal: nl extremities to inspection Extremities: normal pulses, other (Left foot diabetic ulcer, left upper extremity AV fistula) Results Results 24hrs Laboratory Tests Test 12/31/18 16:59 12/31/18 21:19 01/01/19 07:45 01/01/19 11:59 Bedside Glucose 144 177 155 157 Medications Medication Current Medications Vancomycin HCl (Vanco Iv Per Pharmacy) VANCOMYCIN PER PHARMACY PER PROTOCOL XX ; Start 12/18/18 at 09:30 Hydralazine HCl (Apresoline) 20 mg Q4 PRN IV HIGH BLOOD Last administered on 12/29/18 15:52; Admin Dose 20 MG; Start 12/18/18 at 09:30 Acetaminophen (Tylenol Tab) 650 mg Q4H PRN PO MILD PAIN(1-3)OR ELEVATED TEMP; Start 12/18/18 at 09:30 Acetaminophen/ Hydrocodone Bitart ([place] (5/325)) 1 tab Q4H PRN PO MODERATE PAIN LEVEL 4-6 Last administered on 12/22/18 00:00; Admin Dose 1 TAB; Start 12/18 at 09:30 Insulin Aspart (Novolog Insulin Pen) NOVOLOG *MILD* ALGORITHM WITH MEALS BEDTIME SC Last administered on 01/01/19 12:06; Admin Dose 1 UNIT; Start 12/18/18 at 12:00 Aspirin (Halfprin) 81 mg DAILY PO Last administered on 01/01/19 08:59; Admin Dose 81 MG; Start 12/18/18 at 09:30 Atorvastatin Calcium (Lipitor) 80 mg QHS PO Last administered on 12/31/18 21:16; Admin Dose 80 MG; Start 12/18/18 at 21:00 Baclofen (Lioresal) 10 mg TID PO Last administered on 01/01/19 12:00; Admin Dose 10 MG; Start 12/18/18 at 13:00 Clopidogrel Bisulfate (plaVIX) 75 mg DAILY PO Last administered on 01/01/19 08:59; Admin Dose 75 MG; Start 12/18/18 at 09:30 Multivit/Ca Carb/ B Cmplx/FA/Prenat (Amarilis-Christina) 1 tab DAILY PO Last administered on 01/01/19 09:00; Admin Dose 1 TAB; Start 12/18/18 at 09:30 Mirtazapine (Remeron) 15 mg HS PO Last administered on 12/31/18 21:17; Admin Dose 15 MG; Start 12/18/18 at 21:00 Paroxetine HCl (Paxil) 10 mg DAILY PO Last administered on 01/01/19 09:00; Admin Dose 10 MG; Start 12/18/18 at 09:30 Zinc Sulfate (Zinc Sulfate) 220 mg DAILY PO Last administered on 01/01/19 08:59; Admin Dose 220 MG; Start 12/18/18 at 09:30 Sevelamer Carbonate (Renvela) 800 mg WITH MEALS PO Last administered on 01/01/19 12:00; Admin Dose 800 MG; Start 12/18/18 at 11:30 Diagnostic Test (Pha) (Accu-Chek) 1 ea 02 XX Last administered on 12/31/18 02:57; Admin Dose 1 EA; Start 12/19/18 at 02:00 Miscellaneous Information 1 ea NOTE XX ; Start 12/18/18 at 13:00 Glucose (Glutose) 15 gm Q15M PRN PO DECREASED GLUCOSE Last administered on 12/19/18 22:39; Admin Dose 15 GM; Start 12/18/18 at 13:00 Glucose (Glutose) 22.5 gm Q15M PRN PO DECREASED GLUCOSE Last administered on 12/19/18 23:35; Admin Dose 22.5 GM; Start 12/18/18 at 13:00 Dextrose (D50w Syringe) 25 ml Q15M PRN IV DECREASED GLUCOSE; Start 12/18/18 at 13:00 Dextrose (D50w Syringe) 50 ml Q15M PRN IV DECREASED GLUCOSE Last administered on 12/22/18 07:09; Admin Dose 50 ML; Start 12/18/18 at 13:00 Glucagon (Glucagen) 1 mg Q15M PRN IM DECREASED GLUCOSE; Start 12/18/18 at 13:00 Glucose (Glutose) 15 gm Q15M PRN BUCCAL DECREASED GLUCOSE; Start 12/18/18 at 13:00 Epoetin Josias-epbx (Retacrit (Esrd)) 8,000 unit MoWeFr@1700 SC Last administered on 12/30/18 17:03; Admin Dose 8,000 UNIT; Start 12/18/18 at 17:00 Levofloxacin (Levaquin) 500 mg Q48H PO Last administered on 01/01/19 08:59; Admin Dose 500 MG; Start 12/20/18 at 08:00 Povidone Iodine (Povidone-Iodine) 1 applic BID TOP Last administered on 01/01/19 09:01; Admin Dose 1 APPLIC; Start 12/18/18 at 21:00 Sodium Hypochlorite (Dakins Diluted ()) 1 applic BID TP Last administered on 01/01/19 09:00; Admin Dose 1 APPLIC; Start 12/18/18 at 21:00 Multi-Ingredient Ointment (Eucerin Cream) 1 applic DAILY TOP Last administered on 01/01/19 09:01; Admin Dose 1 APPLIC; Start 12/19/18 at 10:28 Ondansetron HCl (Zofran Inj) 4 mg Q6H PRN IV NAUSEA AND/OR VOMITING Last admi nistered on 12/23/18 05:05; Admin Dose 4 MG; Start 12/21/18 at 13:30 Amlodipine Besylate (Norvasc) 5 mg DAILY PO Last administered on 01/01/19 08:59; Admin Dose 5 MG; Start 12/23/18 at 09:00 Lisinopril (Zestril) 40 mg DAILY PO Last administered on 01/01/19 08:58; Admin Dose 40 MG; Start 12/23/18 at 09:00 Linagliptin (Tradjenta) 5 mg DAILY PO Last administered on 01/01/19 09:00; Admin Dose 5 MG; Start 12/22/18 at 14:30 Bromocriptine Mesylate (Parlodel) 2.5 mg QHS PO Last administered on 12/31/18 21:16; Admin Dose 2.5 MG; Start 12/22/18 at 21:00 Diagnostic Test (Pha) (Accu-Chek) 1 ea AC MEALS XX Last administered on 01/01/19 12:00; Admin Dose 1 EA; Start 12/22/18 at 17:30 Vancomycin HCl 250 ml @ 125 mls/hr Q96H IVPB Last administered on 12/31/18 12:36; Admin Dose 125 MLS/HR; Start 12/23/18 at 12:00 Metoprolol Tartrate (Lopressor) 100 mg BID PO Last administered on 01/01/19 09:00; Admin Dose 100 MG; Start 12/26/18 at 21:00 Insulin Glargine (Lantus) 4 units DAILY@2000 SC Last administered on 12/31/18 21:33; Admin Dose 4 UNITS; Start 12/29/18 at 20:00 Morphine Sulfate (morphine) 2 mg Q4H PRN IV SEVERE PAIN LEVEL 7-10 Last administered on 12/30/18 01:45; Admin Dose 2 MG; Start 12/29/18 at 19:00 Famotidine (Pepcid) 20 mg DAILY PO Last administered on 01/01/19 08:59; Admin Dose 20 MG; Start 12/31/18 at 09:00 Cilostazol (Pletal) 50 mg BID PO Last administered on 01/01/19 08:59; Admin Dose 50 MG; Start 12/30/18 at 21:00 NEL LARSEN Jan 01, 2019 12:12
--- NOTE | 2019-01-01 12:26 | PN ---
Date/Time of Note Date/Time of Note DATE: 01/01/19 TIME: 12:20 Assessment/Plan VTE Prophylaxis Risk score (from Ns)>0 risk: 4 SCD applied (from Ns): No SCD contraindicated: other Pharmacological prophylaxis: other Lines/Catheters [facility] Saline Lock Urinary Cath still in place: No Assessment/Plan Hospital Course Patient is undergoing hemodialysis, awake alert, plan for podiatry surgery tomorrow, patient needs gentle hydration with dextrose while n.p.o. Patient is cleared by internal medicine, neurology and cardiology for podiatry surgery. Assessment/Plan -ALOC, resolved.CT of the brain and MRI of the head are negative for acute stroke. Dr. Alfaro is following in neurology consultation. -Right foot ulcer with cellulitis, right second toe ulcer with osteomyelitis and bone exposure. Continue broad-spectrum antibiotics. Dr. Giles is following in infection disease consultation. Dr. Ford following and podiatry consultation. Plan for a right second toe amputation. -Hemodialysis dependent end-stage renal disease. Dr. Agustin is following in nephrology consultation. -Diabetes mellitus type 2. Continue Lantus and NovoLog. -Hyperlipidemia, continue statin. -History of stroke, continue Plavix. Further recommendations based on clinical course. Plan of care discussed with Dr. Perez. Result Diagram: 12/31/1852612/31/18526 Results 24hrs Laboratory Tests Test 12/31/18 16:59 12/31/18 21:19 01/01/19 07:45 01/01/19 11:59 Bedside Glucose 144 177 155 157 Exam/Review of Systems Exam Vitals Vital Signs Date Temp Pulse Resp B/P (MAP) Pulse Ox O2 O2 Flow FiO2 Time Delivery Rate 01/01/19 82 12:02 01/01/19 97.4 15 120/68 98 Nasal 11:56 (85) Cannula 01/01/19 3.0 08:00 Intake and Output 12/31/18 12/31/18 01/01/19 1515:00 23:00 07:00 IntakeIntake Total 400 ml 650 ml 200 ml BalanceBalance 400 ml 650 ml 200 ml Exam Constitutional: awake, alert, communicative Respiratory: clear to auscultation Cardiovascular: nl pulses Gastrointestinal: soft, non-tender Musculoskeletal: nl extremities to inspection Extremities: normal pulses, other (Left foot diabetic ulcer, left upper extremity AV fistula) Results Results 24hrs Laboratory Tests Test 12/31/18 16:59 12/31/18 21:19 01/01/19 07:45 01/01/19 11:59 Bedside Glucose 144 177 155 157 Medications Medication Current Medications Vancomycin HCl (Vanco Iv Per Pharmacy) VANCOMYCIN PER PHARMACY PER PROTOCOL XX ; Start 12/18/18 at 09:30 Hydralazine HCl (Apresoline) 20 mg Q4 PRN IV HIGH BLOOD Last administered on 12/29/18at 15:52; Admin Dose 20 MG; Start 12/18/18 at 09:30 Acetaminophen (Tylenol Tab) 650 mg Q4H PRN PO MILD PAIN(1-3)OR ELEVATED TEMP; Start 12/18/18 at 09:30 Acetaminophen/ Hydrocodone Bitart ([place] (5/325)) 1 tab Q4H PRN PO MODERATE PAIN LEVEL 4-6 Last administered on 12/22/18 00:00; Admin Dose 1 TAB; Start 12/18/18 at 09:30 Insulin Aspart (Novolog Insulin Pen) NOVOLOG *MILD* ALGORITHM WITH MEALS BEDTIME SC Last administered on 01/01/19 12:06; Admin Dose 1 UNIT; Start 12/18/18 at 12:00 Aspirin (Halfprin) 81 mg DAILY PO Last administered on 01/01/19 08:59; Admin Dose 81 MG; Start 12/18/18 at 09:30 Atorvastatin Calcium (Lipitor) 80 mg QHS PO Last administered on 12/31/18 21:16; Admin Dose 80 MG; Start 12/18/18 at 21:00 Baclofen (Lioresal) 10 mg TID PO Last administered on 01/01/19 12:00; Admin Dose 10 MG; Start 12/18/18 at 13:00 Clopidogrel Bisulfate (plaVIX) 75 mg DAILY PO Last administered on 01/01/19 08:59; Admin Dose 75 MG; Start 12/18/18 at 09:30 Multivit/Ca Carb/ B Cmplx/FA/Prenat (Amarilis-Christina) 1 tab DAILY PO Last administered on 01/01/19 09:00; Admin Dose 1 TAB; Start 12/18/18 at 09:30 Mirtazapine (Remeron) 15 mg HS PO Last administered on 12/31/18 21:17; Admin Dose 15 MG; Start 12/18/18 at 21:00 Paroxetine HCl (Paxil) 10 mg DAILY PO Last administered on 01/01/19 09:00; Admin Dose 10 MG; Start 12/18/18 at 09:30 Zinc Sulfate (Zinc Sulfate) 220 mg DAILY PO Last administered on 01/01/19 08:59; Admin Dose 220 MG; Start 12/18/18 at 09:30 Sevelamer Carbonate (Renvela) 800 mg WITH MEALS PO Last administered on 01/01/19 12:00; Admin Dose 800 MG; Start 12/18/18 at 11:30 Diagnostic Test (Pha) (Accu-Chek) 1 ea 02 XX Last administered on 12/31/18 02:57; Admin Dose 1 EA; Start 12/19/18 at 02:00 Miscellaneous Information 1 ea NOTE XX ; Start 12/18/18 at 13:00 Glucose (Glutose) 15 gm Q15M PRN PO DECREASED GLUCOSE Last administered on 12/19/18 22:39; Admin Dose 15 GM; Start 12/18/18 at 13:00 Glucose (Glutose) 22.5 gm Q15M PRN PO DECREASED GLUCOSE Last administered on 12/19/18 23:35; Admin Dose 22.5 GM; Start 12/18/18 at 13:00 Dextrose (D50w Syringe) 25 ml Q15M PRN IV DECREASED GLUCOSE; Start 12/18/18 at 13:00 Dextrose (D50w Syringe) 50 ml Q15M PRN IV DECREASED GLUCOSE Last administered on 12/22/18 07:09; Admin Dose 50 ML; Start 12/18/18 at 13:00 Glucagon (Glucagen) 1 mg Q15M PRN IM DECREASED GLUCOSE; Start 12/18/18 at 13:00 Glucose (Glutose) 15 gm Q15M PRN BUCCAL DECREASED GLUCOSE; Start 12/18/18 at 13:00 Epoetin Josias-epbx (Retacrit (Esrd)) 8,000 unit MoWeFr@1700 SC Last administered on 12/30/18 17:03; Admin Dose 8,000 UNIT; Start 12/18/18 at 17:00 Levofloxacin (Levaquin) 500 mg Q48H PO Last administered on 01/01/19 08:59; Admin Dose 500 MG; Start 12/20/18 at 08:00 Povidone Iodine (Povidone-Iodine) 1 applic BID TOP Last administered on 01/01/19 09:01; Admin Dose 1 APPLIC; Start 12/18/18 at 21:00 Sodium Hypochlorite (Dakins Diluted (1/40)) 1 applic BID TP Last administered on 01/01/19 09:00; Admin Dose 1 APPLIC; Start 12/18/18 at 21:00 Multi-Ingredient Ointment (Eucerin Cream) 1 applic DAILY TOP Last administered on 01/01/19 09:01; Admin Dose 1 APPLIC; Start 12/19/18 at 10:28 Ondansetron HCl (Zofran Inj) 4 mg Q6H PRN IV NAUSEA AND/OR VOMITING Last admin istered on 12/23/18 05:05; Admin Dose 4 MG; Start 12/21/18 at 13:30 Amlodipine Besylate (Norvasc) 5 mg DAILY PO Last administered on 01/01/19 08:59; Admin Dose 5 MG; Start 12/23/18 at 09:00 Lisinopril (Zestril) 40 mg DAILY PO Last administered on 01/01/19 08:58; Admin Dose 40 MG; Start 12/23/18 at 09:00 Linagliptin (Tradjenta) 5 mg DAILY PO Last administered on 01/01/19 09:00; Admin Dose 5 MG; Start 12/22/18 at 14:30 Bromocriptine Mesylate (Parlodel) 2.5 mg QHS PO Last administered on 12/31/18 21:16; Admin Dose 2.5 MG; Start 12/22/18 at 21:00 Diagnostic Test (Pha) (Accu-Chek) 1 ea AC MEALS XX Last administered on 01/01/19 12:00; Admin Dose 1 EA; Start 12/22/18 at 17:30 Vancomycin HCl 250 ml @ 125 mls/hr Q96H IVPB Last administered on 12/31/18 12:36; Admin Dose 125 MLS/HR; Start 12/23/18 at 12:00 Metoprolol Tartrate (Lopressor) 100 mg BID PO Last administered on 01/01/19 09:00; Admin Dose 100 MG; Start 12/26/18 at 21:00 Insulin Glargine (Lantus) 4 units DAILY@2000 SC Last administered on 12/31/18at 21:33; Admin Dose 4 UNITS; Start 12/29/18 at 20:00 Morphine Sulfate (morphine) 2 mg Q4H PRN IV SEVERE PAIN LEVEL 7-10 Last administered on 12/30/18at 01:45; Admin Dose 2 MG; Start 12/29/18 at 19:00 Famotidine (Pepcid) 20 mg DAILY PO Last administered on 01/01/19at 08:59; Admin Dose 20 MG; Start 12/31/18 at 09:00 Cilostazol (Pletal) 50 mg BID PO Last administered on 01/01/19 08:59; Admin Dose 50 MG; Start 12/30/18 at 21:00 NEL LARSEN Jan 01, 2019 12:26
--- NOTE | 2019-01-01 12:57 | PN ---
DATE: 01/01/2019 SUBJECTIVE: The patient is stable, no events overnight. OBJECTIVE: VITAL SIGNS: Blood pressure is 156/71, pulse 85, respirations 18, temperature 98.3. HEENT: Head is normocephalic. NECK: Supple. HEART: Regular rate. LUNGS: Show diminished breath sounds at the base. ABDOMEN: Soft, nontender to palpation without rebound or guarding. EXTREMITIES: Negative for clubbing, cyanosis, no edema. DERMATOLOGIC: No rashes. MUSCULOSKELETAL: No joint effusion. NEUROLOGIC: No change in exam. MEDICATIONS: Reviewed. LABORATORY DATA: Reviewed. ASSESSMENT AND PLAN: 1. End-stage renal disease. Plan is for hemodialysis today. 2. Hypokalemia. The patient will be dialyzed on low potassium bath. 3. Anemia. Monitor hemoglobin and hematocrit levels. 4. Mineral bone disorder, monitor calcium and phosphorus levels. 5. Diabetic foot ulcer. Continue current antibiotic regimen. Continue wound care. Follow up with podiatry. 6. Diabetes. Continue current insulin regimen. 7. History of cerebrovascular accident. Continue medical management. 8. Encephalopathy. Continue to monitor. 9. Hypertension. Continue current blood pressure regimen. 10. Dyslipidemia. Continue statin therapy. Dictated By: RUFUS CHERY/NTS Conf#: [id number] DID#: [id number] CC: BLAINE FAIRBANKS DPM; JACKI LARA MD;*EndCC*
--- NOTE | 2019-01-01 13:25 | CONS ---
Assessment/Plan Assessment/Plan Hospital Course (Demo Recall) IMPRESSION: 1. Preoperative evaluation prior to possible toe amputation and possible need for further evaluation.-neg trop x 3. NL EF by echo. Ok to proceed with toe amputation under nerve block or MAC at moderate CV risk from cardiac standpoint but have concern for neuological status 2. Hypertension-well controlled 3. History of dyslipidemia. 4. Peripheral arterial disease with nonhealing lower extremity ulcers. 5. Nonhealing lower extremity ulcers. 6. Cellulitis. 7. Diabetes mellitus. 8. Psychiatric disorder. 9. New change in MS-? CVA-head CT 12/20 neg for acute changes. ECG most recent without acute changes. -MS at baseline today Recc: -Now on tele -serial ecg's -Continue BB/CCB and now zestril and follow BP closely and use PRN antihypertensives as necessary -Continue asa/plavix and now started on pletal but would watch for bleeding complications and follow slowly downtrending hemoglobin -Continue statin -Continue abx's and f/u cx dta -Continue local wound care -HD as tolerated ongoing today -awaiting podiatric surgery Consultation Date/Type/Reason Admit Date/Time Dec 18, 2018 at 04:02 Initial Consult Date 12/18/18 Type of Consult Cardiology Reason for Consultation HTN Requesting Provider: ADRAINA JUSTICE Date/Time of Note DATE: 01/01/19 TIME: 13:23 Exam/Review of Systems Vital Signs Vitals Vital Signs Date Temp Pulse Resp B/P (MAP) Pulse Ox O2 O2 Flow FiO2 Time Delivery Rate 01/01/19 95 13:05 01/01/19 97.4 15 120/68 98 Nasal 11:56 (85) Cannula 01/01/19 3.0 08:00 Intake and Output 12/31/18 12/31/18 01/01/19 1515:00 23:00 07:00 IntakeIntake Total 400 ml 650 ml 200 ml BalanceBalance 400 ml 650 ml 200 ml Exam Exam Review of Systems: CONSTITUTIONAL: No fevers, chills. PULMONARY: No sob CARDIOVASCULAR: No chest pain/palpitations GASTROINTESTINAL: No nausea/vomiting. GENITOURINARY: No hematuria/dysuria. MUSCULOSKELETAL: No myagias/arthalgias. PSYCHIATRIC: The patient denies depression. NEUROLOGIC: ? mild confusion Constitutional: alert Psych: no complaints Head: normocephalic ENMT: mucosa pink and moist Neck: supple, jvd (9 cm water) Respiratory: diminished breath sounds Cardiovascular: regular rate and rhythm Gastrointestinal: soft, non-tender Musculoskeletal: muscle tone (normal) Extremities: other (gangrenous changes of feet bilateral) Labs Result Diagram: 12/31/1852612/31/18 05 Results 24hrs Laboratory Tests Test 12/31/18 16:59 12/31/18 21:19 01/01/19 07:45 01/01/19 11:59 Bedside Glucose 144 177 155 157 Medications Medications Current Medications Vancomycin HCl (Vanco Iv Per Pharmacy) VANCOMYCIN PER PHARMACY PER PROTOCOL XX ; Start 12/18/18 at 09:30 Hydralazine HCl (Apresoline) 20 mg Q4 PRN IV HIGH BLOOD Last administered on 12/29/18at 15:52; Admin Dose 20 MG; Start 12/18/18 at 09:30 Acetaminophen (Tylenol Tab) 650 mg Q4H PRN PO MILD PAIN(1-3)OR ELEVATED TEMP; Start 12/18/18 at 09:30 Acetaminophen/ Hydrocodone Bitart ([place] (5/325)) 1 tab Q4H PRN PO MODERATE PAIN LEVEL 4-6 Last administered on 12/22/18at 00:00; Admin Dose 1 TAB; Start 12/18/18 at 09:30 Insulin Aspart (Novolog Insulin Pen) NOVOLOG *MILD* ALGORITHM WITH MEALS BEDTIME SC Last administered on 01/01/19at 12:06; Admin Dose 1 UNIT; Start 12/18/18 at 12:00 Aspirin (Halfprin) 81 mg DAILY PO Last administered on 01/01/19at 08:59; Admin Dose 81 MG; Start 12/18/18 at 09:30 Atorvastatin Calcium (Lipitor) 80 mg QHS PO Last administered on 12/31/18at 21:16; Admin Dose 80 MG; Start 12/18/18 at 21:00 Baclofen (Lioresal) 10 mg TID PO Last administered on 01/01/19at 12:00; Admin Dose 10 MG; Start 12/18/18 at 13:00 Clopidogrel Bisulfate (plaVIX) 75 mg DAILY PO Last administered on 01/01/19at 08:59; Admin Dose 75 MG; Start 12/18/18 at 09:30 Multivit/Ca Carb/ B Cmplx/FA/Prenat (Amarilis-Christina) 1 tab DAILY PO Last administered on 01/01/19 09:00; Admin Dose 1 TAB; Start 12/18/18 at 09:30 Mirtazapine (Remeron) 15 mg HS PO Last administered on 12/31/18 21:17; Admin Dose 15 MG; Start 12/18/18 at 21:00 Paroxetine HCl (Paxil) 10 mg DAILY PO Last administered on 01/01/19 09:00; Admin Dose 10 MG; Start 12/18/18 at 09:30 Zinc Sulfate (Zinc Sulfate) 220 mg DAILY PO Last administered on 01/01/19 08:59; Admin Dose 220 MG; Start 12/18/18 at 09:30 Sevelamer Carbonate (Renvela) 800 mg WITH MEALS PO Last administered on 01/01/19 12:00; Admin Dose 800 MG; Start 12/18/18 at 11:30 Diagnostic Test (Pha) (Accu-Chek) 1 ea 02 XX Last administered on 12/31/18at 02:57; Admin Dose 1 EA; Start 12/19/18 at 02:00 Miscellaneous Information 1 ea NOTE XX ; Start 12/18/18 at 13:00 Glucose (Glutose) 15 gm Q15M PRN PO DECREASED GLUCOSE Last administered on 12/19/18 22:39; Admin Dose 15 GM; Start 12/18/18 at 13:00 Glucose (Glutose) 22.5 gm Q15M PRN PO DECREASED GLUCOSE Last administered on 12/19/18 23:35; Admin Dose 22.5 GM; Start 12/18/18 at 13:00 Dextrose (D50w Syringe) 25 ml Q15M PRN IV DECREASED GLUCOSE; Start 12/18/18 at 13:00 Dextrose (D50w Syringe) 50 ml Q15M PRN IV DECREASED GLUCOSE Last administered on 12/22/18 07:09; Admin Dose 50 ML; Start 12/18/18 at 13:00 Glucagon (Glucagen) 1 mg Q15M PRN IM DECREASED GLUCOSE; Start 12/18/18 at 13:00 Glucose (Glutose) 15 gm Q15M PRN BUCCAL DECREASED GLUCOSE; Start 12/18/18 at 13:00 Epoetin Josias-epbx (Retacrit (Esrd)) 8,000 unit MoWeFr@1700 SC Last administered on 12/30/18 17:03; Admin Dose 8,000 UNIT; Start 12/18/18 at 17:00 Levofloxacin (Levaquin) 500 mg Q48H PO Last administered on 01/01/19 08:59; Admin Dose 500 MG; Start 12/20/18 at 08:00 Povidone Iodine (Povidone-Iodine) 1 applic BID TOP Last administered on 01/01/19 09:01; Admin Dose 1 APPLIC; Start 12/18/18 at 21:00 Sodium Hypochlorite (Dakins Diluted (40)) 1 applic BID TP Last administered on 01/01/19 09:00; Admin Dose 1 APPLIC; Start 12/18/18 at 21:00 Multi-Ingredient Ointment (Eucerin Cream) 1 applic DAILY TOP Last administered on 01/01/19 09:01; Admin Dose 1 APPLIC; Start 12/19/18 at 10:28 Ondansetron HCl (Zofran Inj) 4 mg Q6H PRN IV NAUSEA AND/OR VOMITING Last administered on 12/23/18 05:05; Admin Dose 4 MG; Start 12/21/18 at 13:30 Amlodipine Besylate (Norvasc) 5 mg DAILY PO Last administered on 01/01/19 08: 59; Admin Dose 5 MG; Start 12/23/18 at 09:00 Lisinopril (Zestril) 40 mg DAILY PO Last administered on 01/01/19 08:58; Admin Dose 40 MG; Start 12/23/18 at 09:00 Linagliptin (Tradjenta) 5 mg DAILY PO Last administered on 01/01/19 09:00; Admin Dose 5 MG; Start 12/22/18 at 14:30 Bromocriptine Mesylate (Parlodel) 2.5 mg QHS PO Last administered on 12/31/18 21:16; Admin Dose 2.5 MG; Start 12/22/18 at 21:00 Diagnostic Test (Pha) (Accu-Chek) 1 ea AC MEALS XX Last administered on 01/01/19 12:00; Admin Dose 1 EA; Start 12/22/18 at 17:30 Vancomycin HCl 250 ml @ 125 mls/hr Q96H IVPB Last administered on 12/31/18 12:36; Admin Dose 125 MLS/HR; Start 12/23/18 at 12:00 Metoprolol Tartrate (Lopressor) 100 mg BID PO Last administered on 01/01/19 09:00; Admin Dose 100 MG; Start 12/26/18 at 21:00 Insulin Glargine (Lantus) 4 units DAILY@2000 SC Last administered on 12/31/18 21:33; Admin Dose 4 UNITS; Start 12/29/18 at 20:00 Morphine Sulfate (morphine) 2 mg Q4H PRN IV SEVERE PAIN LEVEL 7-10 Last administered on 12/30/18 01:45; Admin Dose 2 MG; Start 12/29/18 at 19:00 Famotidine (Pepcid) 20 mg DAILY PO Last administered on 01/01/19 08:59; Admin Dose 20 MG; Start 12/31/18 at 09:00 Cilostazol (Pletal) 50 mg BID PO Last administered on 01/01/19 08:59; Admin Dose 50 MG; Start 12/30/18 at 21:00 JUWAN TAYLOR Jan 01, 2019 13:25
--- NOTE | 2019-01-01 15:10 | CONS ---
Assessment/Plan Assessment/Plan Hospital Course (Demo Recall) 1230 In HD, looks comfortable, no fevers Indwelling's: Left upper extremity AV fistula Allergy: Clindamycin Antimicrobials: Levofloxacin, Vanco Physical examination: Well-developed well-nourished elderly -[place] male in who is in no distress. Head atraumatic normocephalic neck is supple chest rise symmetrical breath sounds diminished bases. Heart: S1-S2. Abdomen soft bowel sounds present. Extremities with bilateral lower extremities dressing intact Assessment: 1. Bilateral lower extremities wounds with cellulitis and osteomyelitis 2. End-stage renal disease 3. Diabetes 4. Diabetic neuropathy Plan: Clinically stable, continue antibiotics, HD per renal, pending right 2nd toe amputation Consultation Date/Type/Reason Admit Date/Time Dec 18, 2018 at 04:02 Initial Consult Date 12/18/18 Type of Consult id Requesting Provider: ADRIANA JUSTICE Date/Time of Note DATE: 01/01/19 TIME: 15:08 Exam/Review of Systems Exam Vitals Vital Signs Date Temp Pulse Resp B/P (MAP) Pulse Ox O2 O2 Flow FiO2 Time Delivery Rate 01/01/19 95 13:05 01/01/19 97.4 15 120/68 98 Nasal 11:56 (85) Cannula 01/01/19 3.0 08:00 Intake and Output 12/31/18 12/31/18 01/01/19 1515:00 23:00 07:00 IntakeIntake Total 400 ml 650 ml 200 ml BalanceBalance 400 ml 650 ml 200 ml Results Result Diagram: 12/31/1827 12/31/18526 Results 24hrs Laboratory Tests Test 12/31/18 16:59 12/31/18 21:19 01/01/19 07:45 01/01/19 11:59 Bedside Glucose 144 177 155 157 Medications Medication Current Medications Vancomycin HCl (Vanco Iv Per Pharmacy) VANCOMYCIN PER PHARMACY PER PROTOCOL XX ; Start 12/18/18 at 09:30 Hydralazine HCl (Apresoline) 20 mg Q4 PRN IV HIGH BLOOD Last administered on 12/29/18at 15:52; Admin Dose 20 MG; Start 12/18/18 at 09:30 Acetaminophen (Tylenol Tab) 650 mg Q4H PRN PO MILD PAIN(1-3)OR ELEVATED TEMP; Start 12/18/18 at 09:30 Acetaminophen/ Hydrocodone Bitart ([place] (5/325)) 1 tab Q4H PRN PO MODERATE PAIN LEVEL 4-6 Last administered on 12/22/18 00:00; Admin Dose 1 TAB; Start 12/18/18 at 09:30 Insulin Aspart (Novolog Insulin Pen) NOVOLOG *MILD* ALGORITHM WITH MEALS BEDTIME SC Last administered on 01/01/19 12:06; Admin Dose 1 UNIT; Start 12/18/18 at 12:00 Aspirin (Halfprin) 81 mg DAILY PO Last administered on 01/01/19 08:59; Admin Dose 81 MG; Start 12/18/18 at 09:30 Atorvastatin Calcium (Lipitor) 80 mg QHS PO Last administered on 12/31/18 21:16; Admin Dose 80 MG; Start 12/18/18 at 21:00 Baclofen (Lioresal) 10 mg TID PO Last administered on 01/01/19 12:00; Admin Dose 10 MG; Start 12/18/18 at 13:00 Clopidogrel Bisulfate (plaVIX) 75 mg DAILY PO Last administered on 01/01/19 08:59; Admin Dose 75 MG; Start 12/18/18 at 09:30 Multivit/Ca Carb/ B Cmplx/FA/Prenat (Amarilis-Christina) 1 tab DAILY PO Last administ ered on 01/01/19 09:00; Admin Dose 1 TAB; Start 12/18/18 at 09:30 Mirtazapine (Remeron) 15 mg HS PO Last administered on 12/31/18 21:17; Admin Dose 15 MG; Start 12/18/18 at 21:00 Paroxetine HCl (Paxil) 10 mg DAILY PO Last administered on 01/01/19 09:00; Admin Dose 10 MG; Start 12/18/18 at 09:30 Zinc Sulfate (Zinc Sulfate) 220 mg DAILY PO Last administered on 01/01/19 08:59; Admin Dose 220 MG; Start 12/18/18 at 09:30 Sevelamer Carbonate (Renvela) 800 mg WITH MEALS PO Last administered on 12/14 12:00; Admin Dose 800 MG; Start 12/18/18 at 11:30 Diagnostic Test (Pha) (Accu-Chek) 1 ea 02 XX Last administered on 12/31/18 02:57; Admin Dose 1 EA; Start 12/19/18 at 02:00 Miscellaneous Information 1 ea NOTE XX ; Start 12/18/18 at 13:00 Glucose (Glutose) 15 gm Q15M PRN PO DECREASED GLUCOSE Last administered on 12/19/18at 22:39; Admin Dose 15 GM; Start 12/18/18 at 13:00 Glucose (Glutose) 22.5 gm Q15M PRN PO DECREASED GLUCOSE Last administered on 12/19/18 23:35; Admin Dose 22.5 GM; Start 12/18/18 at 13:00 Dextrose (D50w Syringe) 25 ml Q15M PRN IV DECREASED GLUCOSE; Start 12/18/18 at 13:00 Dextrose (D50w Syringe) 50 ml Q15M PRN IV DECREASED GLUCOSE Last administered on 12/22/18 07:09; Admin Dose 50 ML; Start 12/18/18 at 13:00 Glucagon (Glucagen) 1 mg Q15M PRN IM DECREASED GLUCOSE; Start 12/18/18 at 13:00 Glucose (Glutose) 15 gm Q15M PRN BUCCAL DECREASED GLUCOSE; Start 12/18/18 at 13:00 Epoetin Josias-epbx (Retacrit (Esrd)) 8,000 unit MoWeFr@1700 SC Last administered on 12/30/18 17:03; Admin Dose 8,000 UNIT; Start 12/18/18 at 17:00 Levofloxacin (Levaquin) 500 mg Q48H PO Last administered on 01/01/19 08:59; Admin Dose 500 MG; Start 12/20/18 at 08:00 Povidone Iodine (Povidone-Iodine) 1 applic BID TOP Last administered on 01/01/19 09:01; Admin Dose 1 APPLIC; Start 12/18/18 at 21:00 Sodium Hypochlorite (Dakins Diluted (140)) 1 applic BID TP Last administered on 01/01/19 09:00; Admin Dose 1 APPLIC; Start 12/18/18 at 21:00 Multi-Ingredient Ointment (Eucerin Cream) 1 applic DAILY TOP Last administered on 01/01/19 09:01; Admin Dose 1 APPLIC; Start 12/19/18 at 10:28 Ondansetron HCl (Zofran Inj) 4 mg Q6H PRN IV NAUSEA AND/OR VOMITING Last administered on 12/23/18 05:05; Admin Dose 4 MG; Start 12/21/18 at 13:30 Amlodipine Besylate (Norvasc) 5 mg DAILY PO Last administered on 01/01/19 08:59; Admin Dose 5 MG; Start 12/23/18 at 09:00 Lisinopril (Zestril) 40 mg DAILY PO Last administered on 01/01/19 08:58; Admin Dose 40 MG; Start 12/23/18 at 09:00 Linagliptin (Tradjenta) 5 mg DAILY PO Last administered on 01/01/19 09:00; Admin Dose 5 MG; Start 12/22/18 at 14:30 Bromocriptine Mesylate (Parlodel) 2.5 mg QHS PO Last administered on 12/31/18 21:16; Admin Dose 2.5 MG; Start 12/22/18 at 21:00 Diagnostic Test (Pha) (Accu-Chek) 1 ea AC MEALS XX Last administered on 12/14 12:00; Admin Dose 1 EA; Start 12/22/18 at 17:30 Vancomycin HCl 250 ml @ 125 mls/hr Q96H IVPB Last administered on 12/31/18 12:36; Admin Dose 125 MLS/HR; Start 12/23/18 at 12:00 Metoprolol Tartrate (Lopressor) 100 mg BID PO Last administered on 01/01/19 09:00; Admin Dose 100 MG; Start 12/26/18 at 21:00 Insulin Glargine (Lantus) 4 units DAILY@2000 SC Last administered on 12/31/18 21:33; Admin Dose 4 UNITS; Start 12/29/18 at 20:00 Morphine Sulfate (morphine) 2 mg Q4H PRN IV SEVERE PAIN LEVEL 7-10 Last administered on 12/30/18 01:45; Admin Dose 2 MG; Start 12/29/18 at 19:00 Famotidine (Pepcid) 20 mg DAILY PO Last administered on 01/01/19 08:59; Admin Dose 20 MG; Start 12/31/18 at 09:00 Cilostazol (Pletal) 50 mg BID PO Last administered on 01/01/19 08:59; Admin Dose 50 MG; Start 12/30/18 at 21:00 SARABJIT DILLARD NP Jan 01, 2019 15:10
[2019-01-01] MEDS: EPOETIN ALFA-EPBX (ESRD) 4,000 UNIT/ML VIAL SC SCH (19:03)
[2019-01-01] MEDS: ATORVASTATIN 80 MG TAB PO SCH (20:44)
[2019-01-01] MEDS: BROMOCRIPTINE 2.5 MG TAB PO SCH (20:44)
[2019-01-01] MEDS: MIRTAZAPINE 15 MG TAB PO SCH (20:44)
[2019-01-01] MEDS: INSULIN GLARGINE [LANTus] (100 UNITS/ML) SYG SC SCH (21:13)
[2019-01-02] VITALS (19 sets, daily range): BP systolic 74–147; BP diastolic 40–77; PULSE 74–89; RESP 15–20
[2019-01-02] MEDS: DEXTROSE 5%-0.45% NACL 1,000 ML IV SCH ×2 (00:09→09:29)
[2019-01-02] MEDS: ACCU-CHEK XX SCH ×4 (02:00→17:17)
[2019-01-02] MEDS: INSULIN ASPART [NOVOLOG] 3 ML PEN SC SCH ×4 (07:54→21:04)
[2019-01-02] MEDS: SEVELAMER CARBONATE 800 MG TABLET PO SCH ×3 (08:00→17:23)
[2019-01-02] MEDS: PAROXETINE 10 MG TAB PO SCH (09:00)
[2019-01-02] MEDS: LINAGLIPTIN 5 MG TABLET PO SCH (09:00)
[2019-01-02] MEDS: CILOSTAZOL 100 MG TAB PO SCH ×2 (09:00→20:43)
[2019-01-02] MEDS: BACLOFEN 10 MG TAB PO SCH ×3 (09:00→20:44)
[2019-01-02] MEDS: POVIDONE IODINE 10% 28.4 GM OINT TOP SCH ×2 (09:00→20:45)
[2019-01-02] MEDS: LISINOPRIL 20 MG TAB PO SCH (09:00)
[2019-01-02] MEDS: DAKINS 0.0125%(1/40) 473 ML SOLUTION TP SCH ×2 (09:00→20:44)
[2019-01-02] MEDS: AMLODIPINE 5 MG TAB PO SCH (09:00)
[2019-01-02] MEDS: ASPIRIN (EC) 81 MG TAB PO SCH (09:00)
[2019-01-02] MEDS: CLOPIDOGREL 75 MG TAB PO SCH (09:00)
[2019-01-02] MEDS: MULTIVIT/CA CARB/B CMPLX/FA TAB PO SCH (09:00)
[2019-01-02] MEDS: FAMOTIDINE 20 MG TAB PO SCH (09:00)
[2019-01-02] MEDS: ZINC SULFATE 220 MG CAP PO SCH (09:00)
[2019-01-02] MEDS: METOPROLOL 100 MG TAB PO SCH ×2 (09:00→20:44)
[2019-01-02] MEDS: EUCERIN 113 GM CR TOP SCH (09:00)
--- NOTE | 2019-01-02 10:37 | PN ---
DATE: 01/02/2019 SUBJECTIVE: The patient is stable overnight. No events overnight. OBJECTIVE: VITAL SIGNS: Blood pressure is 74/48, pulse 77, respirations 20, temperature 98.2. HEENT: Head is normocephalic. NECK: Supple. HEART: Regular rate. LUNGS: Show diminished breath sounds at base. ABDOMEN: Soft, nontender to palpation without rebound or guarding. EXTREMITIES: Negative for clubbing, cyanosis, no edema. DERMATOLOGIC: No rashes. MUSCULOSKELETAL: No joint effusion. NEUROLOGIC: No change in exam. MEDICATIONS: The patient's medications have been reviewed. LABORATORY DATA: Have been reviewed. ASSESSMENT AND PLAN: 1. End-stage renal disease. The patient had hemodialysis yesterday. Plan for dialysis tomorrow. 2. Hyperkalemia. Continue dialysis on low potassium bath. 3. Anemia. Monitor hemoglobin and hematocrit levels. Continue Epogen. 4. Mineral bone disorder, monitor calcium and phosphorus levels. 5. Diabetic foot ulcer. Continue current wound care. Continue antibiotics. Follow up with podiatr y. 6. Diabetes. Continue current insulin regimen. 7. History of cerebrovascular accident. Continue medical management. 8. Encephalopathy. Continue to monitor. 9. Hypertension. Monitor closely. The patient is currently hypotensive. 10. Dyslipidemia. Continue statin therapy. Dictated By: RUFUS CHERY/AMADEO Conf#: [id number] DID#: [id number] CC: BLAINE FAIRBANKS DPM; JACKI LARA MD;*EndCC*
--- NOTE | 2019-01-02 11:14 | PREAC ---
Date/Time of Note Date/Time of Note DATE: 01/02/19 TIME: 11:12 Anesthesia Eval and Record Evaluation Time Pre-Procedure Interview DATE: 01/02/19 TIME: 11:12 Age 63 Sex male NPO: 8 hrs Preoperative diagnosis Right second toe osteomyelitis Planned procedure Right second toe amputation Past Medical History Past Medical History: Includes Cardio: HTN, Dyslipidemia Endo: Diabetes Neuro: CVA Renal: ESRD on dialysis Heme: Anemia Psych: Other (Dementia) Surgery & Anesthesia Issues No known issue Meds Anticoagulation: No Beta Beny within 24 hr: Yes Reported Medications Folic Acid/Vitamin B Comp W-C (Renal Multivitamin Tablet) 0.8 Mg Tablet, 1 TAB PO DAILY for 90 Days, #90 12/18/18 Glimepiride* (Glimepiride*) 2 Mg Tablet, 2 MG PO BID for 90 Days, #180 12/18/18 Clopidogrel Bisulfate (Clopidogrel) 75 Mg Tablet, 75 MG PO DAILY for 90 Days, #90 12/18/18 Levofloxacin* (Levofloxacin*) 500 Mg Tablet, 500 MG PO DAILY 12/18/18 Amlodipine Besylate* (Norvasc*) 10 Mg Tablet, 10 MG PO DAILY, TAB 07/12/18 Sevelamer Hcl* (Renagel*) 800 Mg Tablet, 800 MG PO WITH MEALS, TAB 07/12/18 Zinc Sulfate* (Zinc Sulfate*) 220 Mg Cap, 220 MG PO DAILY, CAP 07/12/18 Glipizide* (Glipizide*) 5 Mg Tablet, 5 MG PO AC BREAKFAST DINNER, TAB 07/12/18 Folic Acid/Vitamin B Comp W-C (Nephrocaps Capsule) 1 Mg Capsule, 1 MG PO DAILY, CAP 07/12/18 Atorvastatin* (Atorvastatin*) 80 Mg Tablet, 80 MG PO QHS, #30 TAB 07/12/18 Baclofen* (Baclofen*) 10 Mg Tablet, 10 MG PO TID, TAB 07/12/18 Mirtazapine* (Mirtazapine*) 15 Mg Tablet, 15 MG PO HS, TAB 07/12/18 Aspirin (Low Dose Aspirin) 81 Mg Tablet.dr, 81 MG PO DAILY, #30 TAB 07/12/18 Paroxetine Hcl* (Paxil*) 10 Mg Tablet, 10 MG PO DAILY, TAB 07/12/18 Current Medications Vancomycin HCl (Vanco Iv Per Pharmacy) VANCOMYCIN PER PHARMACY PER PROTOCOL XX ; Start 12/18/18 at 09:30 Hydralazine HCl (Apresoline) 20 mg Q4 PRN IV HIGH BLOOD Last administered on 12/29/18 15:52; Admin Dose 20 MG; Start 12/18/18 at 09:30 Acetaminophen (Tylenol Tab) 650 mg Q4H PRN PO MILD PAIN(1-3)OR ELEVATED TEMP; Start 12/18/18 at 09:30 Acetaminophen/ Hydrocodone Bitart ([place] (5/325)) 1 tab Q4H PRN PO MODERATE PAIN LEVEL 4-6 Last administered on 12/22/18 00:00; Admin Dose 1 TAB; Start 12/18/18 at 09:30 Insulin Aspart (Novolog Insulin Pen) NOVOLOG *MILD* ALGORITHM WITH MEALS BEDTIME SC Last administered on 01/01/19 21:13; Admin Dose 1 UNIT; Start 12/18/18 at 12:00 Aspirin (Halfprin) 81 mg DAILY PO Last administered on 01/01/19 08:59; Admin Dose 81 MG; Start 12/18/18 at 09:30 Atorvastatin Calcium (Lipitor) 80 mg QHS PO Last administered on 01/01/19 20:44; Admin Dose 80 MG; Start 12/18/18 at 21:00 Baclofen (Lioresal) 10 mg TID PO Last administered on 01/01/19 20:44; Admin Dose 10 MG; Start 12/18/18 at 13:00 Clopidogrel Bisulfate (plaVIX) 75 mg DAILY PO Last administered on 01/01/19 08:59; Admin Dose 75 MG; Start 12/18/18 at 09:30 Multivit/Ca Carb/ B Cmplx/FA/Prenat (Amarilis-Christina) 1 tab DAILY PO Last administered on 01/01/19 09:00; Admin Dose 1 TAB; Start 12/18/18 at 09:30 Mirtazapine (Remeron) 15 mg HS PO Last administered on 01/01/19 20:44; Admin Dose 15 MG; Start 12/18/18 at 21:00 Paroxetine HCl (Paxil) 10 mg DAILY PO Last administered on 01/01/19 09:00; Admin Dose 10 MG; Start 12/18/18 at 09:30 Zinc Sulfate (Zinc Sulfate) 220 mg DAILY PO Last administered on 01/01/19 08:59; Admin Dose 220 MG; Start 12/18/18 at 09:30 Sevelamer Carbonate (Renvela) 800 mg WITH MEALS PO Last administered on 01/01/19 17:43; Admin Dose 800 MG; Start 12/18/18 at 11:30 Diagnostic Test (Pha) (Accu-Chek) 1 ea 02 XX Last administered on 12/31/18 02:57; Admin Dose 1 EA; Start 12/19/18 at 02:00 Miscellaneous Information 1 ea NOTE XX ; Start 12/18/18 at 13:00 Glucose (Glutose) 15 gm Q15M PRN PO DECREASED GLUCOSE Last administered on 12/19/18 22:39; Admin Dose 15 GM; Start 12/18/18 at 13:00 Glucose (Glutose) 22.5 gm Q15M PRN PO DECREASED GLUCOSE Last administered on 12/19/18 23:35; Admin Dose 22.5 GM; Start 12/18/18 at 13:00 Dextrose (D50w Syringe) 25 ml Q15M PRN IV DECREASED GLUCOSE; Start 12/18/18 at 13:00 Dextrose (D50w Syringe) 50 ml Q15M PRN IV DECREASED GLUCOSE Last administered on 12/22/18 07:09; Admin Dose 50 ML; Start 12/18/18 at 13:00 Glucagon (Glucagen) 1 mg Q15M PRN IM DECREASED GLUCOSE; Start 12/18/18 at 13:00 Glucose (Glutose) 15 gm Q15M PRN BUCCAL DECREASED GLUCOSE; Start 12/18/18 at 13:00 Epoetin Josias-epbx (Retacrit (Esrd)) 8,000 unit MoWeFr@1700 SC Last administered on 01/01/19 19:03; Admin Dose 8,000 UNIT; Start 12/18/18 at 17:00 Levofloxacin (Levaquin) 500 mg Q48H PO Last administered on 01/01/19 08:59; Admin Dose 500 MG; Start 12/20/18 at 08:00 Povidone Iodine (Povidone-Iodine) 1 applic BID TOP Last administered on 01/01/19 21:22; Admin Dose 1 APPLIC; Start 12/18/18 at 21:00 Sodium Hypochlorite (Dakins Diluted (/40)) 1 applic BID TP Last administered on 01/01/19 21:21; Admin Dose 1 APPLIC; Start 12/18/18 at 21:00 Multi-Ingredient Ointment (Eucerin Cream) 1 applic DAILY TOP Last administered on 01/01/19 09:01; Admin Dose 1 APPLIC; Start 12/19/18 at 10:28 Ondansetron HCl (Zofran Inj) 4 mg Q6H PRN IV NAUSEA AND/OR VOMITING Last administered on 12/23/18 05:05; Admin Dose 4 MG; Start 12/21/18 at 13:30 Linagliptin (Tradjenta) 5 mg DAILY PO Last administered on 01/01/19 09:00; Admin Dose 5 MG; Start 12/22/18 at 14:30 Bromocriptine Mesylate (Parlodel) 2.5 mg QHS PO Last administered on 01/01/19 20:44; Admin Dose 2.5 MG; Start 12/22/18 at 21:00 Diagnostic Test (Pha) (Accu-Chek) 1 ea AC MEALS XX Last administered on 01/02/19 07:54; Admin Dose 1 EA; Start 12/22/18 at 17:30 Vancomycin HCl 250 ml @ 125 mls/hr Q96H IVPB Last administered on 12/31/18 12:36; Admin Dose 125 MLS/HR; Start 12/23/18 at 12:00 Metoprolol Tartrate (Lopressor) 100 mg BID PO Last administered on 01/01/19 20:59; Admin Dose 100 MG; Start 12/26/18 at 21:00 Insulin Glargine (Lantus) 4 units DAILY@2000 SC Last administered on 01/01/19 21:13; Admin Dose 4 UNITS; Start 12/29/18 at 20:00 Morphine Sulfate (morphine) 2 mg Q4H PRN IV SEVERE PAIN LEVEL 7-10 Last administered on 12/30/18 01:45; Admin Dose 2 MG; Start 12/29/18 at 19:00 Famotidine (Pepcid) 20 mg DAILY PO Last administered on 01/01/19 08:59; Admin Dose 20 MG; Start 12/31/18 at 09:00 Cilostazol (Pletal) 50 mg BID PO Last administered on 01/01/19at 20:44; Admin Dose 50 MG; Start 12/30/18 at 21:00 Dextrose/Sodium Chloride 1,000 ml @ 60 mls/hr [id number] IV Last administered on 01/02/19at 09:29; Admin Dose 60 MLS/HR; Start 01/01/19 at 16:30 Lisinopril (Zestril) 20 mg DAILY PO ; Start 01/03/19 at 09:00 Meds reviewed: Yes Allergies Coded Allergies: clindamycin (Verified Allergy, Severe, 12/18/18) Allergies Reviewed: Yes Labs/Studies Labs Reviewed: Reviewed by anesthesiologist Result Diagram: 01/02/1928 01/02/1928 Laboratory Tests 01/02/19 05:28 test: N/A Pre-procedure Exam Last vitals Vital Signs Date Temp Pulse Resp B/P (MAP) Pulse Ox O2 O2 Flow FiO2 Time Delivery Rate 01/02/19 77 08:02 01/02/19 98.2 20 74/40 (51) 98 Room Air 07:58 01/01/19 3.0 20:20 Airway: Adequate mouth opening Mallampati: Mallampati I Teeth: Normal Lung: Normal Heart: Normal ASA Physical Status ASA physical status: 3 Emergency: None Planned Anesthetic General/MAC: LMA, MAC Planned Pain Management Parenteral pain med Pre-operative Attestations Prior to commencing anesthesia and surgery, the patient was re-evaluated, there was verification of: *The patient's identity *The results of appropriate recent lab work and preoperative vital signs *The above evaluation not changing prior to induction *Anesthetic plan, risk benefits, alternative and complications discussed with patient/family; questions answered; patient/family understands, accepts and wishes to proceed. OSKAR PORTILLO MD Jan 02, 2019 11:14
--- NOTE | 2019-01-02 12:12 | HPN ---
Date/Time of Note Date/Time of Note DATE: 01/02/19 TIME: 12:11 Interval H&P Admission Note Pt. seen H&P reviewed: No system changes BLAINE FAIRBANKS DPM Jan 02, 2019 12:12
--- NOTE | 2019-01-02 12:21 | CONS ---
Assessment/Plan Assessment/Plan Hospital Course (Demo Recall) IMPRESSION: 1. Preoperative evaluation prior to possible toe amputation and possible need for further evaluation.-neg trop x 3. NL EF by echo. Ok to proceed with toe amputation under nerve block or MAC at moderate CV risk from cardiac standpoint but have concern for neuological status 2. Hypertension-well controlled 3. History of dyslipidemia. 4. Peripheral arterial disease with nonhealing lower extremity ulcers. 5. Nonhealing lower extremity ulcers. 6. Cellulitis. 7. Diabetes mellitus. 8. Psychiatric disorder. 9. New change in MS-? CVA-head CT 12/20 neg for acute changes. ECG most recent without acute changes. -MS at baseline today Recc: -Now on tele -serial ecg's -Continue BB/CCB and now zestril and follow BP closely and use PRN antihypertensives as necessary -Continue asa/plavix and now started on pletal but would watch for bleeding complications and follow slowly downtrending hemoglobin -Continue statin -Continue abx's and f/u cx dta -Continue local wound care -HD as tolerated ongoing today -awaiting podiatric surgery Consultation Date/Type/Reason Admit Date/Time Dec 18, 2018 at 04:02 Initial Consult Date 12/18/18 Type of Consult Cardiology Reason for Consultation Preop Requesting Provider: ADRIANA JUSTICE Date/Time of Note DATE: 01/02/19 TIME: 12:16 Exam/Review of Systems Vital Signs Vitals Vital Signs Date Temp Pulse Resp B/P (MAP) Pulse Ox O2 O2 Flow FiO2 Time Delivery Rate 01/02/19 74 12:08 01/02/19 97.7 20 147/76 100 Room Air 11:39 (99) 01/01/19 3.0 20:20 Intake and Output 01/01/19 01/01/19 01/02/19 1515:00 23:00 07:00 IntakeIntake Total 320 ml 420 ml OutputOutput Total 2500 ml 90 ml BalanceBalance -2180 ml 330 ml Exam Exam Review of Systems: CONSTITUTIONAL: No fevers, chills. PULMONARY: No sob CARDIOVASCULAR: No chest pain/palpitations GASTROINTESTINAL: No nausea/vomiting. GENITOURINARY: No hematuria/dysuria. MUSCULOSKELETAL: No myagias/arthalgias. PSYCHIATRIC: The patient denies depression. NEUROLOGIC: No weakness Constitutional: alert Psych: no complaints Head: normocephalic ENMT: mucosa pink and moist Neck: supple, jvd Respiratory: diminished breath sounds (at bases/B) Cardiovascular: regular rate and rhythm Gastrointestinal: soft, non-tender Musculoskeletal: muscle tone (normal) Extremities: edema (none) Neurological: other (NO focal deficits) Labs Result Diagram: 01/02/1928 01/02/19 0528 Results 24hrs Laboratory Tests Test 01/01/19 17:44 01/01/19 20:53 01/02/19 02:26 01/02/19 05:28 Bedside Glucose 220 181 174 White Blood Count 7.0 Red Blood Count 3.23 L Hemoglobin 8.8 L Hematocrit 28.0 L Mean Corpuscular 86.7 Volume Mean Corpuscular 27.2 L Hemoglobin Mean Corpuscular 31.4 L Hemoglobin Concent Red Cell 16.9 H Distribution Width Platelet Count 427 #H Mean Platelet Volume 10.6 H Immature 0.300 Granulocytes % Neutrophils % 68.6 Lymphocytes % 13.1 L Monocytes % 14.7 H Eosinophils % 2.3 Basophils % 1.0 Nucleated Red Blood 0.0 Cells % Immature 0.020 Granulocytes # Neutrophils # 4.8 Lymphocytes # 0.9 Monocytes # 1.0 H Eosinophils # 0.2 Basophils # 0.1 Nucleated Red Blood 0.0 Cells # Sodium Level 140 Potassium Level 4.6 Chloride Level 101 Carbon Dioxide Level 26 Anion Gap 13 Blood Urea Nitrogen 43 H Creatinine 6.72 H Est Glomerular 10 L Filtrat Rate mL/min Glucose Level 205 Calcium Level 9.2 Test 01/02/19 06:26 01/02/19 11:48 Bedside Glucose 195 194 Medications Medications Current Medications Vancomycin HCl (Vanco Iv Per Pharmacy) VANCOMYCIN PER PHARMACY PER PROTOCOL XX ; Start 12/18/18 at 09:30 Hydralazine HCl (Apresoline) 20 mg Q4 PRN IV HIGH BLOOD Last administered on 12/29/18at 15:52; Admin Dose 20 MG; Start 12/18/18 at 09:30 Acetaminophen (Tylenol Tab) 650 mg Q4H PRN PO MILD PAIN(1-3)OR ELEVATED TEMP; Start 12/18/18 at 09:30 Acetaminophen/ Hydrocodone Bitart ([place] (5/325)) 1 tab Q4H PRN PO MODERATE PAIN LEVEL 4-6 Last administered on 12/22/18 00:00; Admin Dose 1 TAB; Start 12/18/18 at 09:30 Insulin Aspart (Novolog Insulin Pen) NOVOLOG *MILD* ALGORITHM WITH MEALS BEDTIME SC Last administered on 01/01/19 21:13; Admin Dose 1 UNIT; Start 12/18/18 at 12:00 Aspirin (Halfprin) 81 mg DAILY PO Last administered on 01/01/19 08:59; Admin Dose 81 MG; Start 12/18/18 at 09:30 Atorvastatin Calcium (Lipitor) 80 mg QHS PO Last administered on 01/01/19 20:44; Admin Dose 80 MG; Start 12/18/18 at 21:00 Baclofen (Lioresal) 10 mg TID PO Last administered on 01/01/19 20:44; Admin Dose 10 MG; Start 12/18/18 at 13:00 Clopidogrel Bisulfate (plaVIX) 75 mg DAILY PO Last administered on 01/01/19 08:59; Admin Dose 75 MG; Start 12/18/18 at 09:30 Multivit/Ca Carb/ B Cmplx/FA/Prenat (Amarilis-Christina) 1 tab DAILY PO Last administered on 01/01/19 09:00; Admin Dose 1 TAB; Start 12/18/18 at 09:30 Mirtazapine (Remeron) 15 mg HS PO Last administered on 01/01/19 20:44; Admin Dose 15 MG; Start 12/18/18 at 21:00 Paroxetine HCl (Paxil) 10 mg DAILY PO Last administered on 01/01/19 09:00; Admin Dose 10 MG; Start 12/18/18 at 09:30 Zinc Sulfate (Zinc Sulfate) 220 mg DAILY PO Last administered on 01/01/19 08:59; Admin Dose 220 MG; Start 12/18/18 at 09:30 Sevelamer Carbonate (Renvela) 800 mg WITH MEALS PO Last administered on 01/01/19 17:43; Admin Dose 800 MG; Start 12/18/18 at 11:30 Diagnostic Test (Pha) (Accu-Chek) 1 ea 02 XX Last administered on 12/31/18 02:57; Admin Dose 1 EA; Start 12/19/18 at 02:00 Miscellaneous Information 1 ea NOTE XX ; Start 12/18/18 at 13:00 Glucose (Glutose) 15 gm Q15M PRN PO DECREASED GLUCOSE Last administered on 12/19/18 22:39; Admin Dose 15 GM; Start 12/18/18 at 13:00 Glucose (Glutose) 22.5 gm Q15M PRN PO DECREASED GLUCOSE Last administered on 12/19/18 23:35; Admin Dose 22.5 GM; Start 12/18/18 at 13:00 Dextrose (D50w Syringe) 25 ml Q15M PRN IV DECREASED GLUCOSE; Start 12/18/18 at 13:00 Dextrose (D50w Syringe) 50 ml Q15M PRN IV DECREASED GLUCOSE Last administered on 12/22/18 07:09; Admin Dose 50 ML; Start 12/18/18 at 13:00 Glucagon (Glucagen) 1 mg Q15M PRN IM DECREASED GLUCOSE; Start 12/18/18 at 13:00 Glucose (Glutose) 15 gm Q15M PRN BUCCAL DECREASED GLUCOSE; Start 12/18/18 at 13:00 Epoetin Josias-epbx (Retacrit (Esrd)) 8,000 unit MoWeFr@1700 SC Last administered on 01/01/19 19:03; Admin Dose 8,000 UNIT; Start 12/18/18 at 17:00 Levofloxacin (Levaquin) 500 mg Q48H PO Last administered on 01/01/19 08:59; Admin Dose 500 MG; Start 12/20/18 at 08:00 Povidone Iodine (Povidone-Iodine) 1 applic BID TOP Last administered on 01/01/19 21:22; Admin Dose 1 APPLIC; Start 12/18/18 at 21:00 Sodium Hypochlorite (Dakins Diluted (1/40)) 1 applic BID TP Last administered on 01/01/19 21:21; Admin Dose 1 APPLIC; Start 12/18/18 at 21:00 Multi-Ingredient Ointment (Eucerin Cream) 1 applic DAILY TOP Last administered on 01/01/19 09:01; Admin Dose 1 APPLIC; Start 12/19/18 at 10:28 Ondansetron HCl (Zofran Inj) 4 mg Q6H PRN IV NAUSEA AND/OR VOMITING Last administered on 12/23/18 05:05; Admin Dose 4 MG; Start 12/21/18 at 13:30 Linagliptin (Tradjenta) 5 mg DAILY PO Last administered on 01/01/19 09:00; Admin Dose 5 MG; Start 12/22/18 at 14:30 Bromocriptine Mesylate (Parlodel) 2.5 mg QHS PO Last administered on 01/01/19 20:44; Admin Dose 2.5 MG; Start 12/22/18 at 21:00 Diagnostic Test (Pha) (Accu-Chek) 1 ea AC MEALS XX Last administered on 01/02/19 11:49; Admin Dose 1 EA; Start 12/22/18 at 17:30 Vancomycin HCl 250 ml @ 125 mls/hr Q96H IVPB Last administered on 12/31/18 12:36; Admin Dose 125 MLS/HR; Start 12/23/18 at 12:00 Metoprolol Tartrate (Lopressor) 100 mg BID PO Last administered on 01/01/19 20:59; Admin Dose 100 MG; Start 12/26/18 at 21:00 Insulin Glargine (Lantus) 4 units DAILY@2000 SC Last administered on 01/01/19 21:13; Admin Dose 4 UNITS; Start 12/29/18 at 20:00 Morphine Sulfate (morphine) 2 mg Q4H PRN IV SEVERE PAIN LEVEL 7-10 Last admini stered on 12/30/18 01:45; Admin Dose 2 MG; Start 12/29/18 at 19:00 Famotidine (Pepcid) 20 mg DAILY PO Last administered on 01/01/19 08:59; Admin Dose 20 MG; Start 12/31/18 at 09:00 Cilostazol (Pletal) 50 mg BID PO Last administered on 01/01/19 20:44; Admin Dose 50 MG; Start 12/30/18 at 21:00 Dextrose/Sodium Chloride 1,000 ml @ 60 mls/hr [id number] IV Last administered on 01/02/19 09:29; Admin Dose 60 MLS/HR; Start 01/01/19 at 16:30 Lisinopril (Zestril) 20 mg DAILY PO ; Start 01/03/19 at 09:00 JUWAN TAYLOR Jan 02, 2019 12:21
[2019-01-02] MEDS ORDERED: BUPIVACAINE 0.25% (MPF) 30 ML INJ ONE (12:36)
[2019-01-02] MEDS ORDERED: LIDOCAINE 1% (MPF) 30 ML INJ ONE (12:36)
[2019-01-02] MEDS ORDERED: LIDOCAINE 1% (MDV) 20 ML INJ INJ ONE (12:50)
[2019-01-02] MEDS ORDERED: BUPIVACAINE 0.25% (STERILE-PAK) 30 ML INJ INJ ONE (12:50)
[2019-01-02] MEDS ORDERED: hydrALAzine 20 MG INJ ONE (13:22)
[2019-01-02] MEDS ORDERED: BUPIVACAINE 0.5% (SDV) 30 ML INJ INJ ONE (13:30)
[2019-01-02] MEDS ORDERED: BUPIVACAINE 0.5% (SDV) 30 ML INJ ONE (13:30)
[2019-01-02] MEDS ORDERED: POLYMYXIN/BACITRACIN 1L IRRIG IRR ONE (13:30)
[2019-01-02] MEDS ORDERED: DEXAMETHASONE 4 MG/ML 1 ML INJ ONE (13:30)
--- NOTE | 2019-01-02 13:44 | SIPON ---
Date/Time of Note Date/Time of Note DATE: 01/02/19 TIME: 13:42 Operative Report Preoperative Diagnosis Osteomyelitis right 2nd toe, ulcer right 2nd toe Postoperative Diagnosis same Operation/Procedure Performed Total right 2nd toe amputation Surgeon Dr. Liliana DPM see signature line commercial real estate assistant NONE Anesthesia: MAC Estimated blood loss: minimal Transfusion Required none Specimen Proximal phalanx 2nd toe right Distal phalanx 2nd toe right Grafts/Implants none Complications none BLAINE FAIRBANKS DPM Jan 02, 2019 13:44
--- NOTE | 2019-01-02 15:17 | CONS ---
Assessment/Plan Assessment/Plan Hospital Course (Demo Recall) 1315 no acute changes patient is sleeping looks comfortable no fevers overnight Indwelling's: Left upper extremity AV fistula Allergy: Clindamycin Antimicrobials: Levofloxacin, Vanco Physical examination: Well-developed well-nourished elderly -[place] male in who is in no distress. Head atraumatic normocephalic neck is supple chest rise symmetrical breath sounds diminished bases. Heart: S1-S2. Abdomen soft bowel sounds present. Extremities with bilateral lower extremities dressing intact Assessment: 1. Bilateral lower extremities wounds with cellulitis and osteomyelitis 2. End-stage renal disease 3. Diabetes 4. Diabetic neuropathy Plan: Clinically unchanged, continue antibiotics, HD per renal, podiatry recommendations, pending right 2nd toe amputation Consultation Date/Type/Reason Admit Date/Time Dec 18, 2018 at 04:02 Initial Consult Date 12/18/18 Type of Consult id Requesting Provider: ADRIANA JUSTICE Date/Time of Note DATE: 01/02/19 TIME: 15:16 Exam/Review of Systems Exam Vitals Vital Signs Date Temp Pulse Resp B/P (MAP) Pulse Ox O2 O2 Flow FiO2 Time Delivery Rate 01/02/19 98.1 89 20 138/61 100 Room Air 15:04 (86) 01/02/19 2.0 14:05 Intake and Output 01/01/19 01/01/19 01/02/19 1515:00 23:00 07:00 IntakeIntake Total 320 ml 420 ml OutputOutput Total 2500 ml 90 ml BalanceBalance -2180 ml 330 ml Results Result Diagram: 01/02/19 0528 01/02/19 0528 Results 24hrs Laboratory Tests Test 01/01/19 17:44 01/01/19 20:53 01/02/19 02:26 01/02/19 05:28 Bedside Glucose 220 181 174 White Blood Count 7.0 Red Blood Count 3.23 L Hemoglobin 8.8 L Hematocrit 28.0 L Mean Corpuscular 86.7 Volume Mean Corpuscular 27.2 L Hemoglobin Mean Corpuscular 31.4 L Hemoglobin Concent Red Cell 16.9 H Distribution Width Platelet Count 427 #H Mean Platelet Volume 10.6 H Immature 0.300 Granulocytes % Neutrophils % 68.6 Lymphocytes % 13.1 L Monocytes % 14.7 H Eosinophils % 2.3 Basophils % 1.0 Nucleated Red Blood 0.0 Cells % Immature 0.020 Granulocytes # Neutrophils # 4.8 Lymphocytes # 0.9 Monocytes # 1.0 H Eosinophils # 0.2 Basophils # 0.1 Nucleated Red Blood 0.0 Cells # Sodium Level 140 Potassium Level 4.6 Chloride Level 101 Carbon Dioxide Level 26 Anion Gap 13 Blood Urea Nitrogen 43 H Creatinine 6.72 H Est Glomerular 10 L Filtrat Rate mL/min Glucose Level 205 Calcium Level 9.2 Test 01/02/19 06:26 01/02/19 11:48 Bedside Glucose 195 194 Medications Medication Current Medications Vancomycin HCl (Vanco Iv Per Pharmacy) VANCOMYCIN PER PHARMACY PER PROTOCOL XX ; Start 12/18/18 at 09:30 Hydralazine HCl (Apresoline) 20 mg Q4 PRN IV HIGH BLOOD Last administered on at 15:52; Admin Dose 20 MG; Start 12/18/18 at 09:30 Acetaminophen (Tylenol Tab) 650 mg Q4H PRN PO MILD PAIN(1-3)OR ELEVATED TEMP; Start 12/18/18 at 09:30 Acetaminophen/ Hydrocodone Bitart ([place] (5/325)) 1 tab Q4H PRN PO MODERATE PAIN LEVEL 4-6 Last administered on 12/22/18 00:00; Admin Dose 1 TAB; Start 12/18/18 at 09:30 Insulin Aspart (Novolog Insulin Pen) NOVOLOG *MILD* ALGORITHM WITH MEALS BEDTIME SC Last administered on 01/01/19 21:13; Admin Dose 1 UNIT; Start 12/18/18 at 12:00 Aspirin (Halfprin) 81 mg DAILY PO Last administered on 01/01/19 08:59; Admin Dose 81 MG; Start 12/18/18 at 09:30 Atorvastatin Calcium (Lipitor) 80 mg QHS PO Last administered on 01/01/19 20:44; Admin Dose 80 MG; Start 12/18/18 at 21:00 Baclofen (Lioresal) 10 mg TID PO Last administered on 01/01/19 20:44; Admin Dose 10 MG; Start 12/18/18 at 13:00 Clopidogrel Bisulfate (plaVIX) 75 mg DAILY PO Last administered on 01/01/19 08:59; Admin Dose 75 MG; Start 12/18/18 at 09:30 Multivit/Ca Carb/ B Cmplx/FA/Prenat (Amarilis-Christina) 1 tab DAILY PO Last administered on 01/01/19 09:00; Admin Dose 1 TAB; Start 12/18/18 at 09:30 Mirtazapine (Remeron) 15 mg HS PO Last administered on 01/01/19at 20:44; Admin Dose 15 MG; Start 12/18/18 at 21:00 Paroxetine HCl (Paxil) 10 mg DAILY PO Last administered on 01/01/19 09:00; Admin Dose 10 MG; Start 12/18/18 at 09:30 Zinc Sulfate (Zinc Sulfate) 220 mg DAILY PO Last administered on 01/01/19 08:59; Admin Dose 220 MG; Start 12/18/18 at 09:30 Sevelamer Carbonate (Renvela) 800 mg WITH MEALS PO Last administered on 01/01/19 17:43; Admin Dose 800 MG; Start 12/18/18 at 11:30 Diagnostic Test (Pha) (Accu-Chek) 1 ea 02 XX Last administered on 12/31/18at 02:57; Admin Dose 1 EA; Start 12/19/18 at 02:00 Miscellaneous Information 1 ea NOTE XX ; Start 12/18/18 at 13:00 Glucose (Glutose) 15 gm Q15M PRN PO DECREASED GLUCOSE Last administered on 12/19/18 22:39; Admin Dose 15 GM; Start 12/18/18 at 13:00 Glucose (Glutose) 22.5 gm Q15M PRN PO DECREASED GLUCOSE Last administered on 12/19/18at 23:35; Admin Dose 22.5 GM; Start 12/18/18 at 13:00 Dextrose (D50w Syringe) 25 ml Q15M PRN IV DECREASED GLUCOSE; Start 12/18/18 at 13:00 Dextrose (D50w Syringe) 50 ml Q15M PRN IV DECREASED GLUCOSE Last administered on 12/22/18 07:09; Admin Dose 50 ML; Start 12/18/18 at 13:00 Glucagon (Glucagen) 1 mg Q15M PRN IM DECREASED GLUCOSE; Start 12/18/18 at 13:00 Glucose (Glutose) 15 gm Q15M PRN BUCCAL DECREASED GLUCOSE; Start 12/18/18 at 13:00 Epoetin Josias-epbx (Retacrit (Esrd)) 8,000 unit MoWeFr@1700 SC Last administered on 01/01/19 19:03; Admin Dose 8,000 UNIT; Start 12/18/18 at 17:00 Levofloxacin (Levaquin) 500 mg Q48H PO Last administered on 01/01/19 08:59; Admin Dose 500 MG; Start 12/20/18 at 08:00 Povidone Iodine (Povidone-Iodine) 1 applic BID TOP Last administered on 01/01/19 21:22; Admin Dose 1 APPLIC; Start 12/18/18 at 21:00 Sodium Hypochlorite (Dakins Diluted (40)) 1 applic BID TP Last administered on 01/01/19 21:21; Admin Dose 1 APPLIC; Start 12/18/18 at 21:00 Multi-Ingredient Ointment (Eucerin Cream) 1 applic DAILY TOP Last administered on 01/01/19 09:01; Admin Dose 1 APPLIC; Start 12/19/18 at 10:28 Ondansetron HCl (Zofran Inj) 4 mg Q6H PRN IV NAUSEA AND/OR VOMITING Last administered on 12/23/18 05:05; Admin Dose 4 MG; Start 12/21/18 at 13:30 Linagliptin (Tradjenta) 5 mg DAILY PO Last administered on 01/01/19 09:00; Admin Dose 5 MG; Start 12/22/18 at 14:30 Bromocriptine Mesylate (Parlodel) 2.5 mg QHS PO Last administered on 01/01/19 20:44; Admin Dose 2.5 MG; Start 12/22/18 at 21:00 Diagnostic Test (Pha) (Accu-Chek) 1 ea AC MEALS XX Last administered on 01/02/19 11:49; Admin Dose 1 EA; Start 12/22/18 at 17:30 Vancomycin HCl 250 ml @ 125 mls/hr Q96H IVPB Last administered on 12/31/18 12:36; Admin Dose 125 MLS/HR; Start 12/23/18 at 12:00 Metoprolol Tartrate (Lopressor) 100 mg BID PO Last administered on 01/01/19 20:59; Admin Dose 100 MG; Start 12/26/18 at 21:00 Insulin Glargine (Lantus) 4 units DAILY@2000 SC Last administered on 01/01/19at 21:13; Admin Dose 4 UNITS; Start 12/29/18 at 20:00 Morphine Sulfate (morphine) 2 mg Q4H PRN IV SEVERE PAIN LEVEL 7-10 Last administered on 12/30/18at 01:45; Admin Dose 2 MG; Start 12/29/18 at 19:00 Famotidine (Pepcid) 20 mg DAILY PO Last administered on 01/01/19at 08:59; Admin Dose 20 MG; Start 12/31/18 at 09:00 Cilostazol (Pletal) 50 mg BID PO Last administered on 01/01/19at 20:44; Admin Dose 50 MG; Start 12/30/18 at 21:00 Dextrose/Sodium Chloride 1,000 ml @ 60 mls/hr [id number] IV Last administered on 01/02/19at 09:29; Admin Dose 60 MLS/HR; Start 01/01/19 at 16:30 Lisinopril (Zestril) 20 mg DAILY PO ; Start 01/03/19 at 09:00 SARABJIT DILLARD NP Jan 02, 2019 15:17
--- NOTE | 2019-01-02 16:28 | PN ---
Date/Time of Note Date/Time of Note DATE: 01/02/19 TIME: 16:23 Assessment/Plan VTE Prophylaxis Risk score (from Ns)>0 risk: 5 SCD applied (from Ns): Yes Pharmacological prophylaxis: other Lines/Catheters IV Catheter Type (from Nrs): Saline Lock Urinary Cath still in place: No Assessment/Plan Hospital Course Patient is status post right second toe amputation today, will resume diet, continue current pain management. Assessment/Plan -Level of consciousness, CT of the brain and MRI of the head are negative for acute stroke. Dr. Alfaro is following in neurology consultation. -Right foot ulcer with cellulitis, right second toe ulcer with osteomyelitis and bone exposure. S/p right second toe amputation by Dr.Dr. Ford, podiatry. Continue abx per ID. Dr. Giles is following in infection disease consultation. -Hemodialysis dependent end-stage renal disease. Dr. Agustin is following in nephrology consultation. -Diabetes mellitus type 2. Continue Lantus and NovoLog. -Hyperlipidemia, continue statin. -History of stroke, continue Plavix. Further recommendations based on clinical course. Plan of care discussed with Dr. Perez. Result Diagram: 01/02/19 0501/02/1928 Results 24hrs Laboratory Tests Test 01/01/19 17:44 01/01/19 20:53 01/02/19 02:26 01/02/19 05:28 Bedside Glucose 220 181 174 White Blood Count 7.0 Red Blood Count 3.23 L Hemoglobin 8.8 L Hematocrit 28.0 L Mean Corpuscular 86.7 Volume Mean Corpuscular 27.2 L Hemoglobin Mean Corpuscular 31.4 L Hemoglobin Concent Red Cell 16.9 H Distribution Width Platelet Count 427 #H Mean Platelet Volume 10.6 H Immature 0.300 Granulocytes % Neutrophils % 68.6 Lymphocytes % 13.1 L Monocytes % 14.7 H Eosinophils % 2.3 Basophils % 1.0 Nucleated Red Blood 0.0 Cells % Immature 0.020 Granulocytes # Neutrophils # 4.8 Lymphocytes # 0.9 Monocytes # 1.0 H Eosinophils # 0.2 Basophils # 0.1 Nucleated Red Blood 0.0 Cells # Sodium Level 140 Potassium Level 4.6 Chloride Level 101 Carbon Dioxide Level 26 Anion Gap 13 Blood Urea Nitrogen 43 H Creatinine 6.72 H Est Glomerular 10 L Filtrat Rate mL/min Glucose Level 205 Calcium Level 9.2 Test 01/02/19 06:26 01/02/19 11:48 Bedside Glucose 195 194 Exam/Review of Systems Exam Vitals Vital Signs Date Temp Pulse Resp B/P (MAP) Pulse Ox O2 O2 Flow FiO2 Time Delivery Rate 01/02/19 89 16:19 01/02/19 98.1 20 138/61 100 Room Air 15:04 (86) 01/02/19 2.0 14:05 Intake and Output 01/01/19 01/01/19 01/02/19 1414:59 22:59 06:59 IntakeIntake Total 320 ml 420 ml OutputOutput Total 2500 ml 90 ml BalanceBalance -2180 ml 330 ml Exam Constitutional: awake, alert, communicative Respiratory: clear to auscultation Cardiovascular: nl pulses Gastrointestinal: soft, non-tender Musculoskeletal: nl extremities to inspection Extremities: normal pulses, other (status post right second toe amputation, left upper extremity AV fistula) Results Results 24hrs Laboratory Tests Test 01/01/19 17:44 01/01/19 20:53 01/02/19 02:26 01/02/19 05:28 Bedside Glucose 220 181 174 White Blood Count 7.0 Red Blood Count 3.23 L Hemoglobin 8.8 L Hematocrit 28.0 L Mean Corpuscular 86.7 Volume Mean Corpuscular 27.2 L Hemoglobin Mean Corpuscular 31.4 L Hemoglobin Concent Red Cell 16.9 H Distribution Width Platelet Count 427 #H Mean Platelet Volume 10.6 H Immature 0.300 Granulocytes % Neutrophils % 68.6 Lymphocytes % 13.1 L Monocytes % 14.7 H Eosinophils % 2.3 Basophils % 1.0 Nucleated Red Blood 0.0 Cells % Immature 0.020 Granulocytes # Neutrophils # 4.8 Lymphocytes # 0.9 Monocytes # 1.0 H Eosinophils # 0.2 Basophils # 0.1 Nucleated Red Blood 0.0 Cells # Sodium Level 140 Potassium Level 4.6 Chloride Level 101 Carbon Dioxide Level 26 Anion Gap 13 Blood Urea Nitrogen 43 H Creatinine 6.72 H Est Glomerular 10 L Filtrat Rate mL/min Glucose Level 205 Calcium Level 9.2 Test 01/02/19 06:26 01/02/19 11:48 Bedside Glucose 195 194 Medications Medication Current Medications Vancomycin HCl (Vanco Iv Per Pharmacy) VANCOMYCIN PER PHARMACY PER PROTOCOL XX ; Start 12/18/18 at 09:30 Hydralazine HCl (Apresoline) 20 mg Q4 PRN IV HIGH BLOOD Last administered on 12/29/18 15:52; Admin Dose 20 MG; Start 12/18/18 at 09:30 Acetaminophen (Tylenol Tab) 650 mg Q4H PRN PO MILD PAIN(1-3)OR ELEVATED TEMP; Start 12/18/18 at 09:30 Acetaminophen/ Hydrocodone Bitart ([place] (5/325)) 1 tab Q4H PRN PO MODERATE PAIN LEVEL 4-6 Last administered on 12/22/18 00:00; Admin Dose 1 TAB; Start 12/18/18 at 09:30 Insulin Aspart (Novolog Insulin Pen) NOVOLOG *MILD* ALGORITHM WITH MEALS BEDTIME SC Last administered on 01/01/19 21:13; Admin Dose 1 UNIT; Start 12/18/18 at 12:00 Aspirin (Halfprin) 81 mg DAILY PO Last administered on 01/01/19 08:59; Admin Dose 81 MG; Start 12/18/18 at 09:30 Atorvastatin Calcium (Lipitor) 80 mg QHS PO Last administered on 01/01/19 20:44; Admin Dose 80 MG; Start 12/18/18 at 21:00 Baclofen (Lioresal) 10 mg TID PO Last administered on 01/01/19 20:44; Admin D ose 10 MG; Start 12/18/18 at 13:00 Clopidogrel Bisulfate (plaVIX) 75 mg DAILY PO Last administered on 01/01/19 08:59; Admin Dose 75 MG; Start 12/18/18 at 09:30 Multivit/Ca Carb/ B Cmplx/FA/Prenat (Amarilis-Christina) 1 tab DAILY PO Last administered on 01/01/19 09:00; Admin Dose 1 TAB; Start 12/18/18 at 09:30 Mirtazapine (Remeron) 15 mg HS PO Last administered on 01/01/19 20:44; Admin Dose 15 MG; Start 12/18/18 at 21:00 Paroxetine HCl (Paxil) 10 mg DAILY PO Last administered on 01/01/19 09:00; Admin Dose 10 MG; Start 12/18/18 at 09:30 Zinc Sulfate (Zinc Sulfate) 220 mg DAILY PO Last administered on 01/01/19 08:59; Admin Dose 220 MG; Start 12/18/18 at 09:30 Sevelamer Carbonate (Renvela) 800 mg WITH MEALS PO Last administered on 01/01/19 17:43; Admin Dose 800 MG; Start 12/18/18 at 11:30 Diagnostic Test (Pha) (Accu-Chek) 1 ea 02 XX Last administered on 12/31/18 02:57; Admin Dose 1 EA; Start 12/19/18 at 02:00 Miscellaneous Information 1 ea NOTE XX ; Start 12/18/18 at 13:00 Glucose (Glutose) 15 gm Q15M PRN PO DECREASED GLUCOSE Last administered on 12/19/18 22:39; Admin Dose 15 GM; Start 12/18/18 at 13:00 Glucose (Glutose) 22.5 gm Q15M PRN PO DECREASED GLUCOSE Last administered on 12/19/18 23:35; Admin Dose 22.5 GM; Start 12/18/18 at 13:00 Dextrose (D50w Syringe) 25 ml Q15M PRN IV DECREASED GLUCOSE; Start 12/18/18 at 13:00 Dextrose (D50w Syringe) 50 ml Q15M PRN IV DECREASED GLUCOSE Last administered on 12/22/18 07:09; Admin Dose 50 ML; Start 12/18/18 at 13:00 Glucagon (Glucagen) 1 mg Q15M PRN IM DECREASED GLUCOSE; Start 12/18/18 at 13:00 Glucose (Glutose) 15 gm Q15M PRN BUCCAL DECREASED GLUCOSE; Start 12/18/18 at 13:00 Epoetin Josias-epbx (Retacrit (Esrd)) 8,000 unit MoWeFr@1700 SC Last administered on 01/01/19 19:03; Admin Dose 8,000 UNIT; Start 12/18/18 at 17:00 Levofloxacin (Levaquin) 500 mg Q48H PO Last administered on 01/01/19 08:59; Admin Dose 500 MG; Start 12/20/18 at 08:00 Povidone Iodine (Povidone-Iodine) 1 applic BID TOP Last administered on 01/01/19 21:22; Admin Dose 1 APPLIC; Start 12/18/18 at 21:00 Sodium Hypochlorite (Dakins Diluted (1/40)) 1 applic BID TP Last administered on 01/01/19 21:21; Admin Dose 1 APPLIC; Start 12/18/18 at 21:00 Multi-Ingredient Ointment (Eucerin Cream) 1 applic DAILY TOP Last administered on 01/01/19 09:01; Admin Dose 1 APPLIC; Start 12/19/18 at 10:28 Ondansetron HCl (Zofran Inj) 4 mg Q6H PRN IV NAUSEA AND/OR VOMITING Last administered on 12/23/18 05:05; Admin Dose 4 MG; Start 12/21/18 at 13:30 Linagliptin (Tradjenta) 5 mg DAILY PO Last administered on 01/01/19 09:00; Admin Dose 5 MG; Start 12/22/18 at 14:30 Bromocriptine Mesylate (Parlodel) 2.5 mg QHS PO Last administered on 01/01/19 20:44; Admin Dose 2.5 MG; Start 12/22/18 at 21:00 Diagnostic Test (Pha) (Accu-Chek) 1 ea AC MEALS XX Last administered on 01/02/19 11:49; Admin Dose 1 EA; Start 12/22/18 at 17:30 Vancomycin HCl 250 ml @ 125 mls/hr Q96H IVPB Last administered on 12/31/18 12:36; Admin Dose 125 MLS/HR; Start 12/23/18 at 12:00 Metoprolol Tartrate (Lopressor) 100 mg BID PO Last administered on 01/01/19 20:59; Admin Dose 100 MG; Start 12/26/18 at 21:00 Insulin Glargine (Lantus) 4 units DAILY@2000 SC Last administered on 01/01/19 21:13; Admin Dose 4 UNITS; Start 12/29/18 at 20:00 Morphine Sulfate (morphine) 2 mg Q4H PRN IV SEVERE PAIN LEVEL 7-10 Last administered on 12/30/18 01:45; Admin Dose 2 MG; Start 12/29/18 at 19:00 Famotidine (Pepcid) 20 mg DAILY PO Last administered on 01/01/19 08:59; Admin Dose 20 MG; Start 12/31/18 at 09:00 Cilostazol (Pletal) 50 mg BID PO Last administered on 6/19/19at 20:44; Admin Dose 50 MG; Start 12/30/18 at 21:00 Dextrose/Sodium Chloride 1,000 ml @ 60 mls/hr [id number] IV Last administered on 01/02/19at 09:29; Admin Dose 60 MLS/HR; Start 01/01/19 at 16:30 Lisinopril (Zestril) 20 mg DAILY PO ; Start 01/03/19 at 09:00 NEL LARSEN Jan 02, 2019 16:27
--- NOTE | 2019-01-02 18:01 | CONS ---
Assessment/Plan Assessment/Plan Problems: (1) Diabetes mellitus type 2 in nonobese Status: Chronic Comment: Stable control at this time now postop (2) Foot osteomyelitis, right Status: Chronic Comment: Postop Qualifiers: Osteomyelitis type: subacute Qualified Codes: M86.271 - Subacute osteomyel itis, right ankle and foot (3) Diabetic foot ulcer Status: Acute Comment: Postop. 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 (5) Hypertension Status: Chronic Comment: Adequate control Qualifiers: Hypertension type: essential hypertension Qualified Codes: I10 - Essential (primary) hypertension (6) Hyperlipidemia Status: Chronic Comment: Adequate control Qualifiers: Hyperlipidemia type: pure hypercholesterolemia Qualified Codes: E78.00 - Pure hypercholesterolemia, unspecified (7) End-stage renal disease on hemodialysis Status: Chronic Comment: As per nephrology Consultation Date/Type/Reason Admit Date/Time Dec 18, 2018 at 04:02 Initial Consult Date 12/22/18 Type of Consult Endocrinology Reason for Consultation Diabetes mellitus type 2 with peripheral neuropathy, peripheral vascular disease, end-stage renal disease, Requesting Provider: ADRIANA JUSTICE Date/Time of Note DATE: 01/02/19 TIME: 17:59 24 HR Interval Summary Free Text/Dictation Status post amputation of the toe today this afternoon. Constitutional: no complaints Exam/Review of Systems Exam Vitals Vital Signs Date Temp Pulse Resp B/P (MAP) Pulse Ox O2 O2 Flow FiO2 Time Delivery Rate 01/02/19 89 16:19 01/02/19 98.1 20 138/61 100 Room Air 15:04 (86) 01/02/19 2.0 14:05 Intake and Output 01/01/19 01/01/19 01/02/19 1515:00 23:00 07:00 IntakeIntake Total 320 ml 420 ml OutputOutput Total 2500 ml 90 ml BalanceBalance -2180 ml 330 ml Exam No change in general exam, the foot is in bandages Results Result Diagram: 01/02/19 0528 01/02/19 0528 Results 24hrs Laboratory Tests Test 01/01/19 20:53 01/02/19 02:26 01/02/19 05:28 01/02/19 06:26 Bedside Glucose 181 174 195 White Blood Count 7.0 Red Blood Count 3.23 L Hemoglobin 8.8 L Hematocrit 28.0 L Mean Corpuscular 86.7 Volume Mean Corpuscular 27.2 L Hemoglobin Mean Corpuscular 31.4 L Hemoglobin Concent Red Cell 16.9 H Distribution Width Platelet Count 427 #H Mean Platelet Volume 10.6 H Immature 0.300 Granulocytes % Neutrophils % 68.6 Lymphocytes % 13.1 L Monocytes % 14.7 H Eosinophils % 2.3 Basophils % 1.0 Nucleated Red Blood 0.0 Cells % Immature 0.020 Granulocytes # Neutrophils # 4.8 Lymphocytes # 0.9 Monocytes # 1.0 H Eosinophils # 0.2 Basophils # 0.1 Nucleated Red Blood 0.0 Cells # Sodium Level 140 Potassium Level 4.6 Chloride Level 101 Carbon Dioxide Level 26 Anion Gap 13 Blood Urea Nitrogen 43 H Creatinine 6.72 H Est Glomerular 10 L Filtrat Rate mL/min Glucose Level 205 Calcium Level 9.2 Test 01/02/19 11:48 01/02/19 17:15 Bedside Glucose 194 175 Medications Medication Current Medications Vancomycin HCl (Vanco Iv Per Pharmacy) VANCOMYCIN PER PHARMACY PER PROTOCOL XX ; Start 12/18/18 at 09:30 Hydralazine HCl (Apresoline) 20 mg Q4 PRN IV HIGH BLOOD Last administered on 12/29/18at 15:52; Admin Dose 20 MG; Start 12/18/18 at 09:30 Acetaminophen (Tylenol Tab) 650 mg Q4H PRN PO MILD PAIN(1-3)OR ELEVATED TEMP; Start 12/18/18 at 09:30 Acetaminophen/ Hydrocodone Bitart ([place] (5/325)) 1 tab Q4H PRN PO MODERATE PAIN LEVEL 4-6 Last administered on 12/22/18at 00:00; Admin Dose 1 TAB; Start 12/18/18 at 09:30 Insulin Aspart (Novolog Insulin Pen) NOVOLOG *MILD* ALGORITHM WITH MEALS BEDTIME SC Last administered on 01/02/19at 17:23; Admin Dose 1 UNIT; Start 12/18/18 at 12:00 Aspirin (Halfprin) 81 mg DAILY PO Last administered on 01/01/19 08:59; Admin Dose 81 MG; Start 12/18/18 at 09:30 Atorvastatin Calcium (Lipitor) 80 mg QHS PO Last administered on 01/01/19 20:44; Admin Dose 80 MG; Start 12/18/18 at 21:00 Baclofen (Lioresal) 10 mg TID PO Last administered on 01/01/19 20:44; Admin Dose 10 MG; Start 12/18/18 at 13:00 Clopidogrel Bisulfate (plaVIX) 75 mg DAILY PO Last administered on 01/01/19 08:59; Admin Dose 75 MG; Start 12/18/18 at 09:30 Multivit/Ca Carb/ B Cmplx/FA/Prenat (Amarilis-Christina) 1 tab DAILY PO Last administered on 01/01/19 09:00; Admin Dose 1 TAB; Start 12/18/18 at 09:30 Mirtazapine (Remeron) 15 mg HS PO Last administered on 01/01/19 20:44; Admin Dose 15 MG; Start 12/18/18 at 21:00 Paroxetine HCl (Paxil) 10 mg DAILY PO Last administered on 01/01/19 09:00; Admin Dose 10 MG; Start 12/18/18 at 09:30 Zinc Sulfate (Zinc Sulfate) 220 mg DAILY PO Last administered on 01/01/19 08:59; Admin Dose 220 MG; Start 12/18/18 at 09:30 Sevelamer Carbonate (Renvela) 800 mg WITH MEALS PO Last administered on 01/01/19 17:43; Admin Dose 800 MG; Start 12/18/18 at 11:30 Diagnostic Test (Pha) (Accu-Chek) 1 ea 02 XX Last administered on 12/31/18 02:57; Admin Dose 1 EA; Start 12/19/18 at 02:00 Miscellaneous Information 1 ea NOTE XX ; Start 12/18/18 at 13:00 Glucose (Glutose) 15 gm Q15M PRN PO DECREASED GLUCOSE Last administered on 22:39; Admin Dose 15 GM; Start 12/18/18 at 13:00 Glucose (Glutose) 22.5 gm Q15M PRN PO DECREASED GLUCOSE Last administered on 12/19/18 23:35; Admin Dose 22.5 GM; Start 12/18/18 at 13:00 Dextrose (D50w Syringe) 25 ml Q15M PRN IV DECREASED GLUCOSE; Start 12/18/18 at 13:00 Dextrose (D50w Syringe) 50 ml Q15M PRN IV DECREASED GLUCOSE Last administered on 12/22/18 07:09; Admin Dose 50 ML; Start 12/18/18 at 13:00 Glucagon (Glucagen) 1 mg Q15M PRN IM DECREASED GLUCOSE; Start 12/18/18 at 13:00 Glucose (Glutose) 15 gm Q15M PRN BUCCAL DECREASED GLUCOSE; Start 12/18/18 at 13:00 Epoetin Josias-epbx (Retacrit (Esrd)) 8,000 unit MoWeFr@1700 SC Last administered on 01/01/19 19:03; Admin Dose 8,000 UNIT; Start 12/18/18 at 17:00 Levofloxacin (Levaquin) 500 mg Q48H PO Last administered on 01/01/19 08:59; Admin Dose 500 MG; Start 12/20/18 at 08:00 Povidone Iodine (Povidone-Iodine) 1 applic BID TOP Last administered on 01/01/19 21:22; Admin Dose 1 APPLIC; Start 12/18/18 at 21:00 Sodium Hypochlorite (Dakins Diluted (/40)) 1 applic BID TP Last administered on 01/01/19 21:21; Admin Dose 1 APPLIC; Start 12/18/18 at 21:00 Multi-Ingredient Ointment (Eucerin Cream) 1 applic DAILY TOP Last administered on 01/01/19 09:01; Admin Dose 1 APPLIC; Start 12/19/18 at 10:28 Ondansetron HCl (Zofran Inj) 4 mg Q6H PRN IV NAUSEA AND/OR VOMITING Last administered on 12/23/18 05:05; Admin Dose 4 MG; Start 12/21/18 at 13:30 Linagliptin (Tradjenta) 5 mg DAILY PO Last administered on 01/01/19 09:00; Admin Dose 5 MG; Start 12/22/18 at 14:30 Bromocriptine Mesylate (Parlodel) 2.5 mg QHS PO Last administered on 01/01/19 20:44; Admin Dose 2.5 MG; Start 12/22/18 at 21:00 Diagnostic Test (Pha) (Accu-Chek) 1 ea AC MEALS XX Last administered on 01/02/19 17:17; Admin Dose 1 EA; Start 12/22/18 at 17:30 Vancomycin HCl 250 ml @ 125 mls/hr Q96H IVPB Last administered on 12/31/18 12:36; Admin Dose 125 MLS/HR; Start 12/23/18 at 12:00 Metoprolol Tartrate (Lopressor) 100 mg BID PO Last administered on 01/01/19 20:59; Admin Dose 100 MG; Start 12/26/18 at 21:00 Insulin Glargine (Lantus) 4 units DAILY@2000 SC Last administered on 01/01/19 21:13; Admin Dose 4 UNITS; Start 12/29/18 at 20:00 Morphine Sulfate (morphine) 2 mg Q4H PRN IV SEVERE PAIN LEVEL 7-10 Last administered on 12/30/18 01:45; Admin Dose 2 MG; Start 12/29/18 at 19:00 Famotidine (Pepcid) 20 mg DAILY PO Last administered on 01/01/19 08:59; Admin Dose 20 MG; Start 12/31/18 at 09:00 Cilostazol (Pletal) 50 mg BID PO Last administered on 01/01/19 20:44; Admin Dose 50 MG; Start 12/30/18 at 21:00 Dextrose/Sodium Chloride 1,000 ml @ 60 mls/hr [id number] IV Last administered on 01/02/19 09:29; Admin Dose 60 MLS/HR; Start 01/01/19 at 16:30 Lisinopril (Zestril) 20 mg DAILY PO ; Start 01/03/19 at 09:00 RADHA HENSON MD Jan 02, 2019 18:01
--- NOTE | 2019-01-02 18:51 | OPR ---
DATE OF OPERATION: 01/02/2019 PREOPERATIVE DIAGNOSES: 1. Osteomyelitis, right 2nd toe. 2. Chronic ulcer, right 2nd toe. POSTOPERATIVE DIAGNOSES: 1. Osteomyelitis, right 2nd toe. 2. Chronic ulcer, right 2nd toe. PROCEDURE PERFORMED: Total right 2nd toe amputation. ANESTHESIA: Local with MAC. PATHOLOGY: 1. Distal phalanx, right 2nd toe. 2. Proximal phalanx, right 2nd toe. HEMOSTASIS: None. INJECTABLES: A 10 mL of 1:1 mixture of 1% lidocaine plain with 0.5% Marcaine plain preoperatively an d intraoperatively, 10 mL of 0.5% Marcaine plain with 2 mg of Decadron. ESTIMATED BLOOD LOSS: Minimal, less than 3 mL. MATERIALS USED: None. CONDITION TO RECOVERY: Stable. PROCEDURE IN DETAILS: The patient was brought into the operating room. The anesthesiologist proceed ed to place the patient under MAC anesthesia. I injected 10 mL of 1:1 mixture of 0.5% Marcaine plain with 1% lidocaine plain to the area of the right 2nd toe. The right foot and ankle was scrubbed, dr aped in the usual aseptic manner. Attention was directed toward the right 2nd toe. It was noted bridget t there was a visible 2nd toe at the DIPJ area. Using a #15 blade, the middle and distal phalanx was removed in toto and then the proximal phalanx was removed in toto and sent as 2 different specimens. The surgical site was irrigated with antibiotic impregnated saline solution. Then using a 3-0 Vicr yl, the subcutaneous tissue was reapproximated in simple interrupted stitch fashion and before that, Bacitracin powder was inserted into the surgical site then the skin was reapproximated utilizing 4-0 nylon in horizontal and simple interrupted stitch fashion. It was noted that there was good blood valdez pply. The foot was washed and 10 mL of 0.5% Marcaine plain were injected with Decadron and the foot was dressed with Xeroform, 4 x 4 gauze, Kerlix and put on a postop shoe. The patient tolerated surge ry and anesthesia well and was returned to the postanesthesia care unit with all vital signs stable a nd intact. Dictated By: BLAINE CARMICHAEL Conf#: [id number] DID#: [id number] CC: JACKI LARA MD;*[facility]*
--- NOTE | 2019-01-02 19:39 | PAC ---
Date/Time of Note Date/Time of Note DATE: 01/02/19 TIME: 19:38 Post-Anesthesia Notes Post-Anesthesia Note Last documented vital signs Vital Signs Date Temp Pulse Resp B/P (MAP) Pulse Ox O2 O2 Flow FiO2 Time Delivery Rate 01/02/19 89 16:19 01/02/19 98.1 20 138/61 100 Room Air 15:04 (86) 01/02/19 2.0 14:05 Activity: WNL Respiratory function: WNL Cardiovascular function: WNL Mental status: Baseline Pain reasonably controlled: Yes Hydration appropriate: Yes Nausea/Vomiting absent: Yes OSKAR PORTILLO MD Jan 02, 2019 19:39
[2019-01-02] MEDS: BROMOCRIPTINE 2.5 MG TAB PO SCH (20:43)
[2019-01-02] MEDS: MIRTAZAPINE 15 MG TAB PO SCH (20:44)
[2019-01-02] MEDS: ATORVASTATIN 80 MG TAB PO SCH (20:44)
[2019-01-02] MEDS: INSULIN GLARGINE [LANTus] (100 UNITS/ML) SYG SC SCH (21:03)
[2019-01-03] VITALS (22 sets, daily range): BP systolic 96–136; BP diastolic 56–99; PULSE 50–89; RESP 16–20
[2019-01-03] MEDS: DEXTROSE 5%-0.45% NACL 1,000 ML IV SCH ×2 (01:51→17:35)
[2019-01-03] MEDS: ACCU-CHEK XX SCH ×4 (02:34→17:18)
--- NOTE | 2019-01-03 05:16 | PN ---
Date/Time of Note Date/Time of Note DATE: 01/03/19 TIME: 05:15 Assessment/Plan VTE Prophylaxis Risk score (from [facility])>0 risk: 6 SCD applied (from [facility]): No SCD contraindicated: other Pharmacological prophylaxis: other Pharm contraindication: other Lines/Catheters IV Catheter Type (from [facility]): Peripheral IV Urinary Cath still in place: No Assessment/Plan Assessment/Plan -Level of consciousness, CT of the brain and MRI of the head are negative for acute stroke. Dr. Alfaro is following in neurology consultation. -Right foot ulcer with cellulitis, right second toe ulcer with osteomyelitis and bone exposure. S/p right second toe amputation by Dr.Dr. Ford, podiatry. Continue abx per ID. Dr. Giles is following in infection disease consultation. -Hemodialysis dependent end-stage renal disease. Dr. Agustin is following in nephrology consultation. -Diabetes mellitus type 2. Continue Lantus and NovoLog. -Hyperlipidemia, continue statin. -History of stroke, continue Plavix. Further recommendations based on clinical course. Plan of care discussed with Dr. Perez. Result Diagram: 01/02/1952701/02/19527 Results 24hrs Laboratory Tests Test 01/02/19 05:28 01/02/19 06:26 01/02/19 11:48 01/02/19 17:15 White Blood Count 7.0 Red Blood Count 3.23 L Hemoglobin 8.8 L Hematocrit 28.0 L Mean Corpuscular 86.7 Volume Mean Corpuscular 27.2 L Hemoglobin Mean Corpuscular 31.4 L Hemoglobin Concent Red Cell 16.9 H Distribution Width Platelet Count 427 #H Mean Platelet Volume 10.6 H Immature 0.300 Granulocytes % Neutrophils % 68.6 Lymphocytes % 13.1 L Monocytes % 14.7 H Eosinophils % 2.3 Basophils % 1.0 Nucleated Red Blood 0.0 Cells % Immature 0.020 Granulocytes # Neutrophils # 4.8 Lymphocytes # 0.9 Monocytes # 1.0 H Eosinophils # 0.2 Basophils # 0.1 Nucleated Red Blood 0.0 Cells # Sodium Level 140 Potassium Level 4.6 Chloride Level 101 Carbon Dioxide Level 26 Anion Gap 13 Blood Urea Nitrogen 43 H Creatinine 6.72 H Est Glomerular 10 L Filtrat Rate mL/min Glucose Level 205 Calcium Level 9.2 Bedside Glucose 195 194 175 Test 01/02/19 20:47 01/03/19 02:28 Bedside Glucose 191 176 Subjective 24 Hr Interval Summary Free Text/Dictation NAD Afebrile oriented to name only HD today ni new events reported anticipate discharge in am; is not able to take him today dw staff Eyes: no complaints ENT: no complaints Respiratory: no complaints Cardiovascular: no complaints Gastrointestinal: no complaints Genitourinary: no complaints Musculoskeletal: no complaints Skin: no complaints Neurologic: no complaints Psychological: nl mood/affect Exam/Review of Systems Exam Vitals Vital Signs Date Temp Pulse Resp B/P (MAP) Pulse Ox O2 O2 Flow FiO2 Time Delivery Rate 01/03/19 78 04:00 01/03/19 97.8 20 132/56 97 Room Air 04:00 (81) 01/02/19 2.0 14:05 Intake and Output 01/02/19 01/02/19 01/03/19 1414:59 22:59 06:59 IntakeIntake Total 50 ml OutputOutput Total 5 ml BalanceBalance 45 ml Constitutional: alert, well developed Psych: nl mood/affect Eyes: nl lids, nl sclera ENMT: nl external ears & nose Neck: non-tender Respiratory: diminished breath sounds Cardiovascular: nl pulses, other (s1s2) Gastrointestinal: soft, non-tender Musculoskeletal: muscle weakness Extremities: normal pulses Neurological: nl speech, lethargic Lymph: nontender Results Results 24hrs Laboratory Tests Test 01/02/19 05:28 01/02/19 06:26 01/02/19 11:48 01/02/19 17:15 White Blood Count 7.0 Red Blood Count 3.23 L Hemoglobin 8.8 L Hematocrit 28.0 L Mean Corpuscular 86.7 Volume Mean Corpuscular 27.2 L Hemoglobin Mean Corpuscular 31.4 L Hemoglobin Concent Red Cell 16.9 H Distribution Width Platelet Count 427 #H Mean Platelet Volume 10.6 H Immature 0.300 Granulocytes % Neutrophils % 68.6 Lymphocytes % 13.1 L Monocytes % 14.7 H Eosinophils % 2.3 Basophils % 1.0 Nucleated Red Blood 0.0 Cells % Immature 0.020 Granulocytes # Neutrophils # 4.8 Lymphocytes # 0.9 Monocytes # 1.0 H Eosinophils # 0.2 Basophils # 0.1 Nucleated Red Blood 0.0 Cells # Sodium Level 140 Potassium Level 4.6 Chloride Level 101 Carbon Dioxide Level 26 Anion Gap 13 Blood Urea Nitrogen 43 H Creatinine 6.72 H Est Glomerular 10 L Filtrat Rate mL/min Glucose Level 205 Calcium Level 9.2 Bedside Glucose 195 194 175 Test 01/02/19 20:47 01/03/19 02:28 Bedside Glucose 191 176 Medications Medication Current Medications Vancomycin HCl (Vanco Iv Per Pharmacy) VANCOMYCIN PER PHARMACY PER PROTOCOL XX ; Start 12/18/18 at 09:30 Hydralazine HCl (Apresoline) 20 mg Q4 PRN IV HIGH BLOOD Last administered on 12/29/18at 15:52; Admin Dose 20 MG; Start 12/18/18 at 09:30 Acetaminophen (Tylenol Tab) 650 mg Q4H PRN PO MILD PAIN(1-3)OR ELEVATED TEMP; Start 12/18/18 at 09:30 Acetaminophen/ Hydrocodone Bitart ([place] (5/325)) 1 tab Q4H PRN PO MODERATE PAIN LEVEL 4-6 Last administered on 12/22/18 00:00; Admin Dose 1 TAB; Start 12/18/18 at 09:30 Insulin Aspart (Novolog Insulin Pen) NOVOLOG *MILD* ALGORITHM WITH MEALS BEDTIME SC Last administered on 01/02/19 21:04; Admin Dose 1 UNIT; Start 12/18/18 at 12:00 Aspirin (Halfprin) 81 mg DAILY PO Last administered on 01/01/19 08:59; Admin Dose 81 MG; Start 12/18/18 at 09:30 Atorvastatin Calcium (Lipitor) 80 mg QHS PO Last administered on 01/02/19 20:44; Admin Dose 80 MG; Start 12/18/18 at 21:00 Baclofen (Lioresal) 10 mg TID PO Last administered on 01/02/19 20:44; Admin Dose 10 MG; Start 12/18/18 at 13:00 Clopidogrel Bisulfate (plaVIX) 75 mg DAILY PO Last administered on 01/01/19 08:59; Admin Dose 75 MG; Start 12/18/18 at 09:30 Multivit/Ca Carb/ B Cmplx/FA/Prenat (Amarilis-Christina) 1 tab DAILY PO Last administered on 01/01/19 09:00; Admin Dose 1 TAB; Start 12/18/18 at 09:30 Mirtazapine (Remeron) 15 mg HS PO Last administered on 01/02/19 20:44; Admin Dose 15 MG; Start 12/18/18 at 21:00 Paroxetine HCl (Paxil) 10 mg DAILY PO Last administered on 01/01/19 09:00; Admin Dose 10 MG; Start 12/18/18 at 09:30 Zinc Sulfate (Zinc Sulfate) 220 mg DAILY PO Last administered on 01/01/19 08:59; Admin Dose 220 MG; Start 12/18/18 at 09:30 Sevelamer Carbonate (Renvela) 800 mg WITH MEALS PO Last administered on 01/01/19 17:43; Admin Dose 800 MG; Start 12/18/18 at 11:30 Diagnostic Test (Pha) (Accu-Chek) 1 ea 02 XX Last administered on 01/03/19 02:34; Admin Dose 1 EA; Start 12/19/18 at 02:00 Miscellaneous Information 1 ea NOTE XX ; Start 12/18/18 at 13:00 Glucose (Glutose) 15 gm Q15M PRN PO DECREASED GLUCOSE Last administered on 12/19/18 22:39; Admin Dose 15 GM; Start 12/18/18 at 13:00 Glucose (Glutose) 22.5 gm Q15M PRN PO DECREASED GLUCOSE Last administered on 12/19/18 23:35; Admin Dose 22.5 GM; Start 12/18/18 at 13:00 Dextrose (D50w Syringe) 25 ml Q15M PRN IV DECREASED GLUCOSE; Start 12/18/18 at 13:00 Dextrose (D50w Syringe) 50 ml Q15M PRN IV DECREASED GLUCOSE Last administered on 12/22/18 07:09; Admin Dose 50 ML; Start 12/18/18 at 13:00 Glucagon (Glucagen) 1 mg Q15M PRN IM DECREASED GLUCOSE; Start 12/18/18 at 13:00 Glucose (Glutose) 15 gm Q15M PRN BUCCAL DECREASED GLUCOSE; Start 12/18/18 at 13:00 Epoetin Josias-epbx (Retacrit (Esrd)) 8,000 unit MoWeFr@1700 SC Last administered on 01/01/19 19:03; Admin Dose 8,000 UNIT; Start 12/18/18 at 17:00 Levofloxacin (Levaquin) 500 mg Q48H PO Last administered on 01/01/19 08:59; Admin Dose 500 MG; Start 12/20/18 at 08:00 Povidone Iodine (Povidone-Iodine) 1 applic BID TOP Last administered on 01/02/19 20:45; Admin Dose 1 APPLIC; Start 12/18/18 at 21:00 Sodium Hypochlorite (Dakins Diluted ()) 1 applic BID TP Last administered on 01/02/19 20:44; Admin Dose 1 APPLIC; Start 12/18/18 at 21:00 Multi-Ingredient Ointment (Eucerin Cream) 1 applic DAILY TOP Last administered on 01/01/19 09:01; Admin Dose 1 APPLIC; Start 12/19/18 at 10:28 Ondansetron HCl (Zofran Inj) 4 mg Q6H PRN IV NAUSEA AND/OR VOMITING Last administered on 12/23/18 05:05; Admin Dose 4 MG; Start 12/21/18 at 13:30 Linagliptin (Tradjenta) 5 mg DAILY PO Last administered on 01/01/19 09:00; Admin Dose 5 MG; Start 12/22/18 at 14:30 Bromocriptine Mesylate (Parlodel) 2.5 mg QHS PO Last administered on 01/02/19 20:43; Admin Dose 2.5 MG; Start 12/22/18 at 21:00 Diagnostic Test (Pha) (Accu-Chek) 1 ea AC MEALS XX Last administered on 01/02/19 17:17; Admin Dose 1 EA; Start 12/22/18 at 17:30 Vancomycin HCl 250 ml @ 125 mls/hr Q96H IVPB Last administered on 12/31/18 12:36; Admin Dose 125 MLS/HR; Start 12/23/18 at 12:00 Metoprolol Tartrate (Lopressor) 100 mg BID PO Last administered on 01/02/19 20:44; Admin Dose 100 MG; Start 12/26/18 at 21:00 Insulin Glargine (Lantus) 4 units DAILY@2000 SC Last administered on 01/02/19 21:03; Admin Dose 4 UNITS; Start 12/29/18 at 20:00 Morphine Sulfate (morphine) 2 mg Q4H PRN IV SEVERE PAIN LEVEL 7-10 Last administered on 12/30/18at 01:45; Admin Dose 2 MG; Start 12/29/18 at 19:00 Famotidine (Pepcid) 20 mg DAILY PO Last administered on 01/01/19at 08:59; Admin Dose 20 MG; Start 12/31/18 at 09:00 Cilostazol (Pletal) 50 mg BID PO Last administered on 01/02/19at 20:43; Admin Dose 50 MG; Start 12/30/18 at 21:00 Dextrose/Sodium Chloride 1,000 ml @ 60 mls/hr [id number] IV Last administered on 01/03/19at 01:51; Admin Dose 60 MLS/HR; Start 01/01/19 at 16:30 Lisinopril (Zestril) 20 mg DAILY PO ; Start 01/03/19 at 09:00 ADRIANA JUSTICE Jan 03, 2019 05:16
[2019-01-03] MEDS: LEVOFLOXACIN 500 MG TAB PO SCH (07:36)
[2019-01-03] MEDS: SEVELAMER CARBONATE 800 MG TABLET PO SCH ×3 (07:36→17:35)
[2019-01-03] MEDS: INSULIN ASPART [NOVOLOG] 3 ML PEN SC SCH ×4 (07:36→21:00)
[2019-01-03] MEDS: METOPROLOL 100 MG TAB PO SCH ×2 (08:30→21:40)
[2019-01-03] MEDS: MULTIVIT/CA CARB/B CMPLX/FA TAB PO SCH (08:31)
[2019-01-03] MEDS: PAROXETINE 10 MG TAB PO SCH (08:31)
[2019-01-03] MEDS: CILOSTAZOL 100 MG TAB PO SCH ×2 (08:32→21:39)
[2019-01-03] MEDS: LISINOPRIL 20 MG TAB PO SCH (08:33)
[2019-01-03] MEDS: LINAGLIPTIN 5 MG TABLET PO SCH (08:33)
[2019-01-03] MEDS: ASPIRIN (EC) 81 MG TAB PO SCH (08:34)
[2019-01-03] MEDS: FAMOTIDINE 20 MG TAB PO SCH (08:34)
[2019-01-03] MEDS: ZINC SULFATE 220 MG CAP PO SCH (08:34)
[2019-01-03] MEDS: BACLOFEN 10 MG TAB PO SCH ×3 (08:35→21:39)
[2019-01-03] MEDS: CLOPIDOGREL 75 MG TAB PO SCH (08:35)
[2019-01-03] MEDS: EUCERIN 113 GM CR TOP SCH (08:37)
[2019-01-03] MEDS: DAKINS 0.0125%(1/40) 473 ML SOLUTION TP SCH ×2 (08:37→21:00)
[2019-01-03] MEDS: POVIDONE IODINE 10% 28.4 GM OINT TOP SCH ×2 (08:37→21:00)
--- NOTE | 2019-01-03 09:49 | PN ---
DATE: 01/03/2019 SUBJECTIVE: The patient underwent amputation yesterday without any complications. No other events n oted. OBJECTIVE: VITAL SIGNS: Blood pressure is 112/63, respirations 16, pulse 50, temperature 97.8. HEENT: Head is normocephalic. NECK: Supple. HEART: Regular rate. LUNGS: Show breath sounds at the base. ABDOMEN: Soft, nontender to palpation without rebound or guarding. EXTREMITIES: Negative for clubbing, cyanosis. Noted wound with dressing clean, dry, and intact. DERMATOLOGIC: No rashes. MUSCULOSKELETAL: No joint effusion. NEUROLOGIC: No change. MEDICATIONS: Reviewed. LABORATORY DATA: Reviewed. IMAGING STUDIES: Reviewed. ASSESSMENT AND PLAN: 1. End-stage renal disease. Plan is for hemodialysis today. We will dialyze for 3 hours 2k bath, c alcium 2.5. 2. Anemia. Continue to monitor hemoglobin and hematocrit levels. We will give Epogen as needed. 3. Mineral bone disorder. Monitor calcium and phosphorus levels. 4. Diabetes. Continue current insulin regimen. 5. Diabetic foot ulcer. The patient is status post amputation. Continue to monitor. Follow up wit h podiatry. 6. History of cerebrovascular accident. Continue medical management. 7. Encephalopathy. No change. 8. Hypertension. Continue current blood pressure regimen. 9. Dyslipidemia. Continue statin therapy. Dictated By: RUFUS CHERY/NTS Conf#: [id number] DID#: [id number] CC: BLAINE FAIRBANKS DPM; JACKI LARA MD;*EndCC*
--- NOTE | 2019-01-03 10:49 | CONS ---
Assessment/Plan Assessment/Plan Hospital Course (Demo Recall) no acute changes patient is looks comfortable no fevers overnight Indwelling's: Left upper extremity AV fistula Allergy: Clindamycin Antimicrobials: Levofloxacin, Vanco Physical examination: Well-developed well-nourished elderly -[place] male in who is in no distress. Head atraumatic normocephalic neck is supple chest rise symmetrical breath sounds diminished bases. Heart: S1-S2. Abdomen soft bowel sounds present. Extremities with bilateral lower extremities dressing intact Assessment: 1. Bilateral lower extremities wounds with cellulitis and osteomyelitis of the toe, s/p 2nd toe amputation 01/02/19 2. End-stage renal disease 3. Diabetes 4. Diabetic neuropathy Plan: Clinically unchanged, continue abx, will dw podiatry if pt further needs to be treated for OM Consultation Date/Type/Reason Admit Date/Time Dec 18, 2018 at 04:02 Initial Consult Date 12/18/18 Type of Consult id Requesting Provider: ADRIANA JUSTICE Date/Time of Note DATE: 01/03/19 TIME: 10:48 Exam/Review of Systems Exam Vitals Vital Signs Date Temp Pulse Resp B/P (MAP) Pulse Ox O2 O2 Flow FiO2 Time Delivery Rate 01/03/19 87 08:26 01/03/19 3.0 07:59 01/03/19 97.8 16 112/63 90 07:23 (79) 01/03/19 Room Air 04:00 Intake and Output 01/02/19 01/02/19 01/03/19 1515:00 23:00 07:00 IntakeIntake Total 50 ml 300 ml OutputOutput Total 5 ml 0 ml BalanceBalance 45 ml 300 ml Results Result Diagram: 01/03/19 0531 01/03/19 0531 Results 24hrs Laboratory Tests Test 01/02/19 11:48 01/02/19 17:15 01/02/19 20:47 01/03/19 02:28 Bedside Glucose 194 175 191 176 Test 01/03/19 05:31 01/03/19 07:30 White Blood Count 5.5 # Red Blood Count 3.04 L Hemoglobin 8.4 L Hematocrit 26.5 L Mean Corpuscular 87.2 Volume Mean Corpuscular 27.6 L Hemoglobin Mean Corpuscular 31.7 L Hemoglobin Concent Red Cell 17.0 H Distribution Width Platelet Count 395 Mean Platelet Volume 10.2 Immature 0.200 Granulocytes % Neutrophils % 74.0 Lymphocytes % 13.8 L Monocytes % 11.1 H Eosinophils % 0.2 Basophils % 0.7 Nucleated Red Blood 0.0 Cells % Immature 0.010 Granulocytes # Neutrophils # 4.1 Lymphocytes # 0.8 Monocytes # 0.6 Eosinophils # 0.0 Basophils # 0.0 Nucleated Red Blood 0.0 Cells # Sodium Level 142 Potassium Level 5.2 H Chloride Level 104 Carbon Dioxide Level 24 Anion Gap 14 H Blood Urea Nitrogen 55 H Creatinine 9.33 #H Est Glomerular 7 L Filtrat Rate mL/min Glucose Level 166 Calcium Level 9.2 Bedside Glucose 126 Medications Medication Current Medications Vancomycin HCl (Vanco Iv Per Pharmacy) VANCOMYCIN PER PHARMACY PER PROTOCOL XX ; Start 12/18/18 at 09:30 Hydralazine HCl (Apresoline) 20 mg Q4 PRN IV HIGH BLOOD Last administered on 12/29/18at 15:52; Admin Dose 20 MG; Start 12/18/18 at 09:30 Acetaminophen (Tylenol Tab) 650 mg Q4H PRN PO MILD PAIN(1-3)OR ELEVATED TEMP; Start 12/18/18 at 09:30 Acetaminophen/ Hydrocodone Bitart ([place] (5/325)) 1 tab Q4H PRN PO MODERATE PAIN LEVEL 4-6 Last administered on 12/22/18at 00:00; Admin Dose 1 TAB; Start 12/18/18 at 09:30 Insulin Aspart (Novolog Insulin Pen) NOVOLOG *MILD* ALGORITHM WITH MEALS BEDTIME SC Last administered on 01/02/19 21:04; Admin Dose 1 UNIT; Start 12/18/18 at 12:00 Aspirin (Halfprin) 81 mg DAILY PO Last administered on 01/03/19 08:34; Admin Dose 81 MG; Start 12/18/18 at 09:30 Atorvastatin Calcium (Lipitor) 80 mg QHS PO Last administered on 01/02/19 20:44; Admin Dose 80 MG; Start 12/18/18 at 21:00 Baclofen (Lioresal) 10 mg TID PO Last administered on 01/03/19 08:35; Admin Dose 10 MG; Start 12/18/18 at 13:00 Clopidogrel Bisulfate (plaVIX) 75 mg DAILY PO Last administered on 01/03/19 08:35; Admin Dose 75 MG; Start 12/18/18 at 09:30 Multivit/Ca Carb/ B Cmplx/FA/Prenat (Amarilis-Christina) 1 tab DAILY PO Last administered on 01/03/19 08:31; Admin Dose 1 TAB; Start 12/18/18 at 09:30 Mirtazapine (Remeron) 15 mg HS PO Last administered on 01/02/19 20:44; Admin Dose 15 MG; Start 12/18/18 at 21:00 Paroxetine HCl (Paxil) 10 mg DAILY PO Last administered on 01/03/19 08:31; Admin Dose 10 MG; Start 12/18/18 at 09:30 Zinc Sulfate (Zinc Sulfate) 220 mg DAILY PO Last administered on 01/03/19 08:34; Admin Dose 220 MG; Start 12/18/18 at 09:30 Sevelamer Carbonate (Renvela) 800 mg WITH MEALS PO Last administered on 01/03/19 07:36; Admin Dose 800 MG; Start 12/18/18 at 11:30 Diagnostic Test (Pha) (Accu-Chek) 1 ea 02 XX Last administered on 01/03/19at 02:34; Admin Dose 1 EA; Start 12/19/18 at 02:00 Miscellaneous Information 1 ea NOTE XX ; Start 12/18/18 at 13:00 Glucose (Glutose) 15 gm Q15M PRN PO DECREASED GLUCOSE Last administered on 12/19/18 22:39; Admin Dose 15 GM; Start 12/18/18 at 13:00 Glucose (Glutose) 22.5 gm Q15M PRN PO DECREASED GLUCOSE Last administered on 12/19/18 23:35; Admin Dose 22.5 GM; Start 12/18/18 at 13:00 Dextrose (D50w Syringe) 25 ml Q15M PRN IV DECREASED GLUCOSE; Start 12/18/18 at 13:00 Dextrose (D50w Syringe) 50 ml Q15M PRN IV DECREASED GLUCOSE Last administered on 12/22/18 07:09; Admin Dose 50 ML; Start 12/18/18 at 13:00 Glucagon (Glucagen) 1 mg Q15M PRN IM DECREASED GLUCOSE; Start 12/18/18 at 13:00 Glucose (Glutose) 15 gm Q15M PRN BUCCAL DECREASED GLUCOSE; Start 12/18/18 at 13:00 Epoetin Josias-epbx (Retacrit (Esrd)) 8,000 unit MoWeFr@1700 SC Last administered on 01/01/19 19:03; Admin Dose 8,000 UNIT; Start 12/18/18 at 17:00 Levofloxacin (Levaquin) 500 mg Q48H PO Last administered on 01/03/19 07:36; Admin Dose 500 MG; Start 12/20/18 at 08:00 Povidone Iodine (Povidone-Iodine) 1 applic BID TOP Last administered on 01/02/19 20:45; Admin Dose 1 APPLIC; Start 12/18/18 at 21:00 Sodium Hypochlorite (Dakins Diluted ()) 1 applic BID TP Last administered on 01/02/19 20:44; Admin Dose 1 APPLIC; Start 12/18/18 at 21:00 Multi-Ingredient Ointment (Eucerin Cream) 1 applic DAILY TOP Last administered on 01/01/19 09:01; Admin Dose 1 APPLIC; Start 12/19/18 at 10:28 Ondansetron HCl (Zofran Inj) 4 mg Q6H PRN IV NAUSEA AND/OR VOMITING Last administered on 12/23/18 05:05; Admin Dose 4 MG; Start 12/21/18 at 13:30 Linagliptin (Tradjenta) 5 mg DAILY PO Last administered on 01/03/19 08:33; Admin Dose 5 MG; Start 12/22/18 at 14:30 Bromocriptine Mesylate (Parlodel) 2.5 mg QHS PO Last administered on 01/02/19 20:43; Admin Dose 2.5 MG; Start 12/22/18 at 21:00 Diagnostic Test (Pha) (Accu-Chek) 1 ea AC MEALS XX Last administered on 01/03/19 07:36; Admin Dose 1 EA; Start 12/22/18 at 17:30 Vancomycin HCl 250 ml @ 125 mls/hr Q96H IVPB Last administered on 12/31/18 12:36; Admin Dose 125 MLS/HR; Start 12/23/18 at 12:00 Metoprolol Tartrate (Lopressor) 100 mg BID PO Last administered on 01/03/19 08:30; Admin Dose 100 MG; Start 12/26/18 at 21:00 Insulin Glargine (Lantus) 4 units DAILY@2000 SC Last administered on 01/02/19 21:03; Admin Dose 4 UNITS; Start 12/29/18 at 20:00 Morphine Sulfate (morphine) 2 mg Q4H PRN IV SEVERE PAIN LEVEL 7-10 Last administered on 12/30/18at 01:45; Admin Dose 2 MG; Start 12/29/18 at 19:00 Famotidine (Pepcid) 20 mg DAILY PO Last administered on 01/03/19at 08:34; Admin Dose 20 MG; Start 12/31/18 at 09:00 Cilostazol (Pletal) 50 mg BID PO Last administered on 01/03/19 08:32; Admin Dose 50 MG; Start 12/30/18 at 21:00 Dextrose/Sodium Chloride 1,000 ml @ 60 mls/hr [id number] IV Last administered on 01/03/19at 01:51; Admin Dose 60 MLS/HR; Start 01/01/19 at 16:30 Lisinopril (Zestril) 20 mg DAILY PO Last administered on 01/03/19 08:33; Admin Dose 20 MG; Start 01/03/19 at 09:00 SARABJIT DILLARD NP Jan 03, 2019 10:49
--- NOTE | 2019-01-03 10:51 | CONS ---
Assessment/Plan Assessment/Plan Hospital Course (Demo Recall) IMPRESSION: 1. Preoperative evaluation prior to possible toe amputation and possible need for further evaluation.-neg trop x 3. NL EF by echo. Ok to proceed with toe amputation under nerve block or MAC at moderate CV risk from cardiac standpoint but have concern for neuological status 2. Hypertension-well controlled 3. History of dyslipidemia. 4. Peripheral arterial disease with nonhealing lower extremity ulcers s/p toe amputation POD#1 5. Nonhealing lower extremity ulcers. 6. Cellulitis. 7. Diabetes mellitus. 8. Psychiatric disorder. 9. New change in MS-? CVA-head CT 12/20 neg for acute changes. ECG most recent without acute changes. -MS at baseline today Recc: -Now on tele -serial ecg's -Continue BB/CCB and now zestril and follow BP closely and use PRN antihypertensives as necessary -Continue asa/plavix and now started on pletal but would watch for bleeding complications and follow hemoglobin closely -Continue statin -Continue abx's and f/u cx dta -Continue local wound care -HD as tolerated ongoing today Consultation Date/Type/Reason Admit Date/Time Dec 18, 2018 at 04:02 Initial Consult Date 12/18/18 Type of Consult Cardiology Reason for Consultation preop Requesting Provider: ADRIANA JUSTICE Date/Time of Note DATE: 01/03/19 TIME: 10:49 Exam/Review of Systems Vital Signs Vitals Vital Signs Date Temp Pulse Resp B/P (MAP) Pulse Ox O2 O2 Flow FiO2 Time Delivery Rate 01/03/19 87 08:26 01/03/19 3.0 07:59 01/03/19 97.8 16 112/63 90 07:23 (79) 01/03/19 Room Air 04:00 Intake and Output 01/02/19 01/02/19 01/03/19 1515:00 23:00 07:00 IntakeIntake Total 50 ml 300 ml OutputOutput Total 5 ml 0 ml BalanceBalance 45 ml 300 ml Exam Exam Review of Systems: CONSTITUTIONAL: No fevers, chills. PULMONARY: No sob CARDIOVASCULAR: No chest pain/palpitations GASTROINTESTINAL: No nausea/vomiting. GENITOURINARY: No hematuria/dysuria. MUSCULOSKELETAL: No myagias/arthalgias. PSYCHIATRIC: The patient denies depression. NEUROLOGIC: lethargic Constitutional: alert, other (cachectic appearing) Psych: no complaints Head: normocephalic ENMT: mucosa pink and moist Neck: supple, jvd (9 cm water) Respiratory: diminished breath sounds (at bases/B) Cardiovascular: regular rate and rhythm Gastrointestinal: soft, non-tender Musculoskeletal: muscle weakness (generalized) Extremities: other (covered by dressing, s/p toe amputation) Neurological: confused (?) Labs Result Diagram: 01/03/1931 01/03/19 0531 Results 24hrs Laboratory Tests Test 01/02/19 11:48 01/02/19 17:15 01/02/19 20:47 01/03/19 02:28 Bedside Glucose 194 175 191 176 Test 01/03/19 05:31 01/03/19 07:30 White Blood Count 5.5 # Red Blood Count 3.04 L Hemoglobin 8.4 L Hematocrit 26.5 L Mean Corpuscular 87.2 Volume Mean Corpuscular 27.6 L Hemoglobin Mean Corpuscular 31.7 L Hemoglobin Concent Red Cell 17.0 H Distribution Width Platelet Count 395 Mean Platelet Volume 10.2 Immature 0.200 Granulocytes % Neutrophils % 74.0 Lymphocytes % 13.8 L Monocytes % 11.1 H Eosinophils % 0.2 Basophils % 0.7 Nucleated Red Blood 0.0 Cells % Immature 0.010 Granulocytes # Neutrophils # 4.1 Lymphocytes # 0.8 Monocytes # 0.6 Eosinophils # 0.0 Basophils # 0.0 Nucleated Red Blood 0.0 Cells # Sodium Level 142 Potassium Level 5.2 H Chloride Level 104 Carbon Dioxide Level 24 Anion Gap 14 H Blood Urea Nitrogen 55 H Creatinine 9.33 #H Est Glomerular 7 L Filtrat Rate mL/min Glucose Level 166 Calcium Level 9.2 Bedside Glucose 126 Medications Medications Current Medications Vancomycin HCl (Vanco Iv Per Pharmacy) VANCOMYCIN PER PHARMACY PER PROTOCOL XX ; Start 12/18/18 at 09:30 Hydralazine HCl (Apresoline) 20 mg Q4 PRN IV HIGH BLOOD Last administered on 12/29/18at 15:52; Admin Dose 20 MG; Start 12/18/18 at 09:30 Acetaminophen (Tylenol Tab) 650 mg Q4H PRN PO MILD PAIN(1-3)OR ELEVATED TEMP; Start 12/18/18 at 09:30 Acetaminophen/ Hydrocodone Bitart ([place] (5/325)) 1 tab Q4H PRN PO MODERATE PAIN LEVEL 4-6 Last administered on 12/22/18 00:00; Admin Dose 1 TAB; Start 12/18/18 at 09:30 Insulin Aspart (Novolog Insulin Pen) NOVOLOG *MILD* ALGORITHM WITH MEALS BEDTIME SC Last administered on 01/02/19 21:04; Admin Dose 1 UNIT; Start 12/18/18 at 12:00 Aspirin (Halfprin) 81 mg DAILY PO Last administered on 01/03/19 08:34; Admin Dose 81 MG; Start 12/18/18 at 09:30 Atorvastatin Calcium (Lipitor) 80 mg QHS PO Last administered on 01/02/19 20:44; Admin Dose 80 MG; Start 12/18/18 at 21:00 Baclofen (Lioresal) 10 mg TID PO Last administered on 01/03/19 08:35; Admin Dose 10 MG; Start 12/18/18 at 13:00 Clopidogrel Bisulfate (plaVIX) 75 mg DAILY PO Last administered on 01/03/19 08:35; Admin Dose 75 MG; Start 12/18/18 at 09:30 Multivit/Ca Carb/ B Cmplx/FA/Prenat (Amarilis-Christina) 1 tab DAILY PO Last administered on 01/03/19 08:31; Admin Dose 1 TAB; Start 12/18/18 at 09:30 Mirtazapine (Remeron) 15 mg HS PO Last administered on 01/02/19 20:44; Admin Dose 15 MG; Start 12/18/18 at 21:00 Paroxetine HCl (Paxil) 10 mg DAILY PO Last administered on 01/03/19 08:31; Admin Dose 10 MG; Start 12/18/18 at 09:30 Zinc Sulfate (Zinc Sulfate) 220 mg DAILY PO Last administered on 01/03/19 08:34; Admin Dose 220 MG; Start 12/18/18 at 09:30 Sevelamer Carbonate (Renvela) 800 mg WITH MEALS PO Last administered on 01/03/19 07:36; Admin Dose 800 MG; Start 12/18/18 at 11:30 Diagnostic Test (Pha) (Accu-Chek) 1 ea 02 XX Last administered on 01/03/19 02:34; Admin Dose 1 EA; Start 12/19/18 at 02:00 Miscellaneous Information 1 ea NOTE XX ; Start 12/18/18 at 13:00 Glucose (Glutose) 15 gm Q15M PRN PO DECREASED GLUCOSE Last administered on 12/19/18at 22:39; Admin Dose 15 GM; Start 12/18/18 at 13:00 Glucose (Glutose) 22.5 gm Q15M PRN PO DECREASED GLUCOSE Last administered on 12/19/18at 23:35; Admin Dose 22.5 GM; Start 12/18/18 at 13:00 Dextrose (D50w Syringe) 25 ml Q15M PRN IV DECREASED GLUCOSE; Start 12/18/18 at 13:00 Dextrose (D50w Syringe) 50 ml Q15M PRN IV DECREASED GLUCOSE Last administered on 12/22/18at 07:09; Admin Dose 50 ML; Start 12/18/18 at 13:00 Glucagon (Glucagen) 1 mg Q15M PRN IM DECREASED GLUCOSE; Start 12/18/18 at 13:00 Glucose (Glutose) 15 gm Q15M PRN BUCCAL DECREASED GLUCOSE; Start 12/18/18 at 13:00 Epoetin Josias-epbx (Retacrit (Esrd)) 8,000 unit MoWeFr@1700 SC Last administered on 01/01/19 19:03; Admin Dose 8,000 UNIT; Start 12/18/18 at 17:00 Levofloxacin (Levaquin) 500 mg Q48H PO Last administered on 01/03/19at 07:36; Admin Dose 500 MG; Start 12/20/18 at 08:00 Povidone Iodine (Povidone-Iodine) 1 applic BID TOP Last administered on 01/02/19at 20:45; Admin Dose 1 APPLIC; Start 12/18/18 at 21:00 Sodium Hypochlorite (Dakins Diluted (40)) 1 applic BID TP Last administered on 01/02/19at 20:44; Admin Dose 1 APPLIC; Start 12/18/18 at 21:00 Multi-Ingredient Ointment (Eucerin Cream) 1 applic DAILY TOP Last administered on 01/01/19at 09:01; Admin Dose 1 APPLIC; Start 12/19/18 at 10:28 Ondansetron HCl (Zofran Inj) 4 mg Q6H PRN IV NAUSEA AND/OR VOMITING Last administered on 12/23/18 05:05; Admin Dose 4 MG; Start 12/21/18 at 13:30 Linagliptin (Tradjenta) 5 mg DAILY PO Last administered on 01/03/19 08:33; A dmin Dose 5 MG; Start 12/22/18 at 14:30 Bromocriptine Mesylate (Parlodel) 2.5 mg QHS PO Last administered on 01/02/19 20:43; Admin Dose 2.5 MG; Start 12/22/18 at 21:00 Diagnostic Test (Pha) (Accu-Chek) 1 ea AC MEALS XX Last administered on 01/03/19 07:36; Admin Dose 1 EA; Start 12/22/18 at 17:30 Vancomycin HCl 250 ml @ 125 mls/hr Q96H IVPB Last administered on 12/31/18 12:36; Admin Dose 125 MLS/HR; Start 12/23/18 at 12:00 Metoprolol Tartrate (Lopressor) 100 mg BID PO Last administered on 01/03/19 08:30; Admin Dose 100 MG; Start 12/26/18 at 21:00 Insulin Glargine (Lantus) 4 units DAILY@2000 SC Last administered on 01/02/19 21:03; Admin Dose 4 UNITS; Start 12/29/18 at 20:00 Morphine Sulfate (morphine) 2 mg Q4H PRN IV SEVERE PAIN LEVEL 7-10 Last administered on 12/30/18 01:45; Admin Dose 2 MG; Start 12/29/18 at 19:00 Famotidine (Pepcid) 20 mg DAILY PO Last administered on 01/03/19 08:34; Admin Dose 20 MG; Start 12/31/18 at 09:00 Cilostazol (Pletal) 50 mg BID PO Last administered on 01/03/19 08:32; Admin Dose 50 MG; Start 12/30/18 at 21:00 Dextrose/Sodium Chloride 1,000 ml @ 60 mls/hr [id number] IV Last administered on 01/03/19 01:51; Admin Dose 60 MLS/HR; Start 01/01/19 at 16:30 Lisinopril (Zestril) 20 mg DAILY PO Last administered on 01/03/19 08:33; Admin Dose 20 MG; Start 01/03/19 at 09:00 JUWAN TAYLOR Jan 03, 2019 10:51
--- NOTE | 2019-01-03 14:03 | CONS ---
Assessment/Plan Assessment/Plan Problems: (1) Diabetes mellitus type 2 in nonobese Status: Chronic Comment: Glycemic control continues to do well under the controlled regimen in a controlled setting (2) Diabetic ulcer of right foot associated with type 2 diabetes mellitus Status: Chronic Comment: Now postop Qualifiers: Diabetic foot ulcer location: toe Non-pressure ulcer stage: with bone invo lvement without evidence of necrosis Qualified Codes: E11.621 - Type 2 diabet es mellitus with foot ulcer; L97.516 - Non-pressure chronic ulcer of other part of right foot with bone involvement without evidence of necrosis (3) Foot osteomyelitis, right Status: Chronic Comment: Surgically removed Qualifiers: Osteomyelitis type: subacute Qualified Codes: M86.271 - Subacute o steomyelitis, right ankle and foot (4) Hypertension Status: Chronic Comment: Adequate blood pressure control Qualifiers: Hypertension type: essential hypertension Qualified Codes: I10 - Essential (primary) hypertension (5) Grade I diastolic dysfunction Status: Chronic Comment: controlled with controlled blood pressure and rate (6) Hyperlipidemia Status: Chronic Comment: On full dose therapy Qualifiers: Hyperlipidemia type: pure hypercholesterolemia Qualified Codes: E78.00 - Pure hypercholesterolemia, unspecified (7) End-stage renal disease on hemodialysis Status: Chronic Comment: Presently receiving dialysis (8) Peripheral vascular disease Status: Chronic Comment: Stable. 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 (10) Anemia Status: Chronic Comment: As per primary team Qualifiers: Anemia type: due to chronic kidney disease Chronic kidney disease stage: on chronic dialysis Qualified Codes: N18.6 - End stage renal disease; D63.1 - Anemia in chronic kidney disease; Z99.2 - Dependence on renal dialysis Consultation Date/Type/Reason Admit Date/Time Dec 18, 2018 at 04:02 Initial Consult Date 12/22/18 Type of Consult Endocrinology Reason for Consultation Diabetes mellitus type 2 complicated by end-stage renal disease; peripheral vascular disease disease; peripheral neuropathy; Requesting Provider: ADRIANA JUSTICE Date/Time of Note DATE: 01/03/19 TIME: 13:58 24 HR Interval Summary Free Text/Dictation Postop and stable Exam/Review of Systems Exam Vitals Vital Signs Date Temp Pulse Resp B/P (MAP) Pulse Ox O2 O2 Flow FiO2 Time Delivery Rate 01/03/19 84 110/57 Nasal 3.0 12:30 (74) Cannula 01/03/19 97.9 18 96 12:13 Intake and Output 01/02/19 01/02/19 01/03/19 1515:00 23:00 07:00 IntakeIntake Total 50 ml 300 ml OutputOutput Total 5 ml 0 ml BalanceBalance 45 ml 300 ml Constitutional: alert Respiratory: clear to auscultation, normal air movement Cardiovascular: regular rate and rhythm, nl pulses Results Result Diagram: 01/03/19 0531 01/03/19 0531 Results 24hrs Laboratory Tests Test 01/02/19 17:15 01/02/19 20:47 01/03/19 02:28 01/03/19 05:31 Bedside Glucose 175 191 176 White Blood Count 5.5 # Red Blood Count 3.04 L Hemoglobin 8.4 L Hematocrit 26.5 L Mean Corpuscular 87.2 Volume Mean Corpuscular 27.6 L Hemoglobin Mean Corpuscular 31.7 L Hemoglobin Concent Red Cell 17.0 H Distribution Width Platelet Count 395 Mean Platelet Volume 10.2 Immature 0.200 Granulocytes % Neutrophils % 74.0 Lymphocytes % 13.8 L Monocytes % 11.1 H Eosinophils % 0.2 Basophils % 0.7 Nucleated Red Blood 0.0 Cells % Immature 0.010 Granulocytes # Neutrophils # 4.1 Lymphocytes # 0.8 Monocytes # 0.6 Eosinophils # 0.0 Basophils # 0.0 Nucleated Red Blood 0.0 Cells # Sodium Level 142 Potassium Level 5.2 H Chloride Level 104 Carbon Dioxide Level 24 Anion Gap 14 H Blood Urea Nitrogen 55 H Creatinine 9.33 #H Est Glomerular 7 L Filtrat Rate mL/min Glucose Level 166 Calcium Level 9.2 Test 01/03/19 07:30 01/03/19 11:33 Bedside Glucose 126 151 Medications Medication Current Medications Vancomycin HCl (Vanco Iv Per Pharmacy) VANCOMYCIN PER PHARMACY PER PROTOCOL XX ; Start 12/18/18 at 09:30 Hydralazine HCl (Apresoline) 20 mg Q4 PRN IV HIGH BLOOD Last administered on 12/29/18at 15:52; Admin Dose 20 MG; Start 12/18/18 at 09:30 Acetaminophen (Tylenol Tab) 650 mg Q4H PRN PO MILD PAIN(1-3)OR ELEVATED TEMP; Start 12/18/18 at 09:30 Acetaminophen/ Hydrocodone Bitart ([place] (5/325)) 1 tab Q4H PRN PO MODERATE PAIN LEVEL 4-6 Last administered on 12/22/18 00:00; Admin Dose 1 TAB; Start 12/18/18 at 09:30 Insulin Aspart (Novolog Insulin Pen) NOVOLOG *MILD* ALGORITHM WITH MEALS BEDTIME SC Last administered on 01/03/19 12:07; Admin Dose 1 UNIT; Start at 12:00 Aspirin (Halfprin) 81 mg DAILY PO Last administered on 01/03/19 08:34; Admin Dose 81 MG; Start 12/18/18 at 09:30 Atorvastatin Calcium (Lipitor) 80 mg QHS PO Last administered on 01/02/19 20:44; Admin Dose 80 MG; Start 12/18/18 at 21:00 Baclofen (Lioresal) 10 mg TID PO Last administered on 01/03/19 08:35; Admin Dose 10 MG; Start 12/18/18 at 13:00 Clopidogrel Bisulfate (plaVIX) 75 mg DAILY PO Last administered on 01/03/19 08:35; Admin Dose 75 MG; Start 12/18/18 at 09:30 Multivit/Ca Carb/ B Cmplx/FA/Prenat (Amarilis-Christina) 1 tab DAILY PO Last administered on 01/03/19 08:31; Admin Dose 1 TAB; Start 12/18/18 at 09:30 Mirtazapine (Remeron) 15 mg HS PO Last administered on 01/02/19 20:44; Admin Dose 15 MG; Start 12/18/18 at 21:00 Paroxetine HCl (Paxil) 10 mg DAILY PO Last administered on 01/03/19 08:31; Admin Dose 10 MG; Start 12/18/18 at 09:30 Zinc Sulfate (Zinc Sulfate) 220 mg DAILY PO Last administered on 01/03/19 08:34; Admin Dose 220 MG; Start 12/18/18 at 09:30 Sevelamer Carbonate (Renvela) 800 mg WITH MEALS PO Last administered on 01/03/19 07:36; Admin Dose 800 MG; Start 12/18/18 at 11:30 Diagnostic Test (Pha) (Accu-Chek) 1 ea 02 XX Last administered on 01/03/19 02:34; Admin Dose 1 EA; Start 12/19/18 at 02:00 Miscellaneous Information 1 ea NOTE XX ; Start 12/18/18 at 13:00 Glucose (Glutose) 15 gm Q15M PRN PO DECREASED GLUCOSE Last administered on 12/19/18at 22:39; Admin Dose 15 GM; Start 12/18/18 at 13:00 Glucose (Glutose) 22.5 gm Q15M PRN PO DECREASED GLUCOSE Last administered on 12/19/18 23:35; Admin Dose 22.5 GM; Start 12/18/18 at 13:00 Dextrose (D50w Syringe) 25 ml Q15M PRN IV DECREASED GLUCOSE; Start 12/18/18 at 13:00 Dextrose (D50w Syringe) 50 ml Q15M PRN IV DECREASED GLUCOSE Last administered on 12/22/18 07:09; Admin Dose 50 ML; Start 12/18/18 at 13:00 Glucagon (Glucagen) 1 mg Q15M PRN IM DECREASED GLUCOSE; Start 12/18/18 at 13:00 Glucose (Glutose) 15 gm Q15M PRN BUCCAL DECREASED GLUCOSE; Start 12/18/18 at 13:00 Epoetin Josias-epbx (Retacrit (Esrd)) 8,000 unit MoWeFr@1700 SC Last administered on 01/01/19 19:03; Admin Dose 8,000 UNIT; Start 12/18/18 at 17:00 Levofloxacin (Levaquin) 500 mg Q48H PO Last administered on 01/03/19 07:36; Admin Dose 500 MG; Start 12/20/18 at 08:00 Povidone Iodine (Povidone-Iodine) 1 applic BID TOP Last administered on 01/02/19 20:45; Admin Dose 1 APPLIC; Start 12/18/18 at 21:00 Sodium Hypochlorite (Dakins Diluted (40)) 1 applic BID TP Last administered on 01/02/19 20:44; Admin Dose 1 APPLIC; Start 12/18/18 at 21:00 Multi-Ingredient Ointment (Eucerin Cream) 1 applic DAILY TOP Last administered on 01/01/19 09:01; Admin Dose 1 APPLIC; Start 12/19/18 at 10:28 Ondansetron HCl (Zofran Inj) 4 mg Q6H PRN IV NAUSEA AND/OR VOMITING Last administered on 12/23/18 05:05; Admin Dose 4 MG; Start 12/21/18 at 13:30 Linagliptin (Tradjenta) 5 mg DAILY PO Last administered on 01/03/19 08:33; Admin Dose 5 MG; Start 12/22/18 at 14:30 Bromocriptine Mesylate (Parlodel) 2.5 mg QHS PO Last administered on 01/02/19 20:43; Admin Dose 2.5 MG; Start 12/22/18 at 21:00 Diagnostic Test (Pha) (Accu-Chek) 1 ea AC MEALS XX Last administered on 01/03/19 12:11; Admin Dose 1 EA; Start 12/22/18 at 17:30 Vancomycin HCl 250 ml @ 125 mls/hr Q96H IVPB Last administered on 12/31/18 12:36; Admin Dose 125 MLS/HR; Start 12/23/18 at 12:00 Metoprolol Tartrate (Lopressor) 100 mg BID PO Last administered on 01/03/19 08:30; Admin Dose 100 MG; Start 12/26/18 at 21:00 Insulin Glargine (Lantus) 4 units DAILY@2000 SC Last administered on 01/02/19 21:03; Admin Dose 4 UNITS; Start 12/29/18 at 20:00 Morphine Sulfate (morphine) 2 mg Q4H PRN IV SEVERE PAIN LEVEL 7-10 Last administered on 12/30/18 01:45; Admin Dose 2 MG; Start 12/29/18 at 19:00 Famotidine (Pepcid) 20 mg DAILY PO Last administered on 01/03/19 08:34; Admin Dose 20 MG; Start 12/31/18 at 09:00 Cilostazol (Pletal) 50 mg BID PO Last administered on 01/03/19 08:32; Admin Dose 50 MG; Start 12/30/18 at 21:00 Dextrose/Sodium Chloride 1,000 ml @ 60 mls/hr [id number] IV Last administered on 01/03/19 01:51; Admin Dose 60 MLS/HR; Start 01/01/19 at 16:30 Lisinopril (Zestril) 20 mg DAILY PO Last administered on 01/03/19 08:33; Admin Dose 20 MG; Start 01/03/19 at 09:00 RADHA HENSON MD Jan 03, 2019 14:03
[2019-01-03] MEDS: EPOETIN ALFA-EPBX (ESRD) 4,000 UNIT/ML VIAL SC SCH (17:22)
[2019-01-03] MEDS: BROMOCRIPTINE 2.5 MG TAB PO SCH (21:39)
[2019-01-03] MEDS: ATORVASTATIN 80 MG TAB PO SCH (21:39)
[2019-01-03] MEDS: MIRTAZAPINE 15 MG TAB PO SCH (21:40)
[2019-01-03] MEDS: INSULIN GLARGINE [LANTus] (100 UNITS/ML) SYG SC SCH (21:43)
[2019-01-04] VITALS (10 sets, daily range): BP systolic 98–118; BP diastolic 53–59; PULSE 77–95; RESP 17–20
[2019-01-04] MEDS: ACCU-CHEK XX SCH ×4 (02:00→17:12)
[2019-01-04] MEDS: INSULIN ASPART [NOVOLOG] 3 ML PEN SC SCH ×4 (07:45→21:00)
[2019-01-04] MEDS: PAROXETINE 10 MG TAB PO SCH (08:08)
[2019-01-04] MEDS: MULTIVIT/CA CARB/B CMPLX/FA TAB PO SCH (08:08)
[2019-01-04] MEDS: SEVELAMER CARBONATE 800 MG TABLET PO SCH ×3 (08:08→17:12)
[2019-01-04] MEDS: CILOSTAZOL 100 MG TAB PO SCH ×2 (08:09→21:29)
[2019-01-04] MEDS: LISINOPRIL 20 MG TAB PO SCH (08:09)
[2019-01-04] MEDS: FAMOTIDINE 20 MG TAB PO SCH (08:09)
[2019-01-04] MEDS: ASPIRIN (EC) 81 MG TAB PO SCH (08:10)
[2019-01-04] MEDS: BACLOFEN 10 MG TAB PO SCH ×3 (08:10→21:29)
[2019-01-04] MEDS: METOPROLOL 100 MG TAB PO SCH ×2 (08:10→21:30)
[2019-01-04] MEDS: ZINC SULFATE 220 MG CAP PO SCH (08:10)
[2019-01-04] MEDS: LINAGLIPTIN 5 MG TABLET PO SCH (08:10)
[2019-01-04] MEDS: CLOPIDOGREL 75 MG TAB PO SCH (08:10)
[2019-01-04] MEDS: EUCERIN 113 GM CR TOP SCH (08:11)
[2019-01-04] MEDS: DAKINS 0.0125%(1/40) 473 ML SOLUTION TP SCH ×2 (08:11→21:34)
[2019-01-04] MEDS: POVIDONE IODINE 10% 28.4 GM OINT TOP SCH ×2 (08:11→21:41)
--- NOTE | 2019-01-04 09:10 | DS ---
Date/Time of Note Date/Time of Note DATE: 01/04/19 TIME: 09:10 Discharge Summary Admission/Discharge Info Admit Date/Time Dec 18, 2018 at 04:02 Discharge Date/Time Patient Condition: Stable Home Meds Reported Medications Folic Acid/Vitamin B Comp W-C (Renal Multivitamin Tablet) 0.8 Mg Tablet, 1 TAB PO DAILY for 90 Days, #90 12/18/18 Glimepiride* (Glimepiride*) 2 Mg Tablet, 2 MG PO BID for 90 Days, #180 12/18/18 Clopidogrel Bisulfate (Clopidogrel) 75 Mg Tablet, 75 MG PO DAILY for 90 Days, #90 12/18/18 Levofloxacin* (Levofloxacin*) 500 Mg Tablet, 500 MG PO DAILY 12/18/18 Amlodipine Besylate* (Norvasc*) 10 Mg Tablet, 10 MG PO DAILY, TAB 07/12/18 Sevelamer Hcl* (Renagel*) 800 Mg Tablet, 800 MG PO WITH MEALS, TAB 07/12/18 Zinc Sulfate* (Zinc Sulfate*) 220 Mg Cap, 220 MG PO DAILY, CAP 07/12/18 Glipizide* (Glipizide*) 5 Mg Tablet, 5 MG PO AC BREAKFAST DINNER, TAB 07/12/18 Folic Acid/Vitamin B Comp W-C (Nephrocaps Capsule) 1 Mg Capsule, 1 MG PO DAILY, CAP 07/12/18 Atorvastatin* (Atorvastatin*) 80 Mg Tablet, 80 MG PO QHS, #30 TAB 07/12/18 Baclofen* (Baclofen*) 10 Mg Tablet, 10 MG PO TID, TAB 07/12/18 Mirtazapine* (Mirtazapine*) 15 Mg Tablet, 15 MG PO HS, TAB 07/12/18 Aspirin (Low Dose Aspirin) 81 Mg Tablet.dr, 81 MG PO DAILY, #30 TAB 07/12/18 Paroxetine Hcl* (Paxil*) 10 Mg Tablet, 10 MG PO DAILY, TAB 07/12/18 Primary Care Provider Not On Staff Doctor Pending Labs Laboratory Tests Test 01/03/19 11:33 01/03/19 17:17 01/03/19 20:42 01/04/19 06:41 Bedside 151 81 177 145 Glucose mg/dL (70-220) mg/dL (70-220) mg/dL (70-220) mg/dL (70-220) Test 01/04/19 07:42 Bedside 143 Glucose mg/dL (70-220) ADRIANA JUSTICE Jan 04, 2019 09:10
--- NOTE | 2019-01-04 09:10 | CONS ---
Consult Date/Type/Reason Admit Date/Time Dec 18, 2018 at 04:02 Initial Consult Date 12/22/18 Requesting Provider: ADRIANA JUSTICE Date/Time of Note DATE: 01/04/19 TIME: 09:07 Subjective The patient underwent hd yesterday without any complications. No other events noted. OBJECTIVE: HEENT: Head is normocephalic. NECK: Supple. HEART: Regular rate. LUNGS: Show breath sounds at the base. ABDOMEN: Soft, nontender to palpation without rebound or guarding. EXTREMITIES: Negative for clubbing, cyanosis. Noted wound with dressing clean, dry, and intact. DERMATOLOGIC: No rashes. MUSCULOSKELETAL: No joint effusion. NEUROLOGIC: No change. Objective Vitals Vital Signs Date Temp Pulse Resp B/P (MAP) Pulse Ox O2 O2 Flow FiO2 Time Delivery Rate 01/04/19 98.8 78 18 112/54 98 08:02 (73) 01/04/19 Nasal 3.0 07:54 Cannula Intake and Output 01/03/19 01/03/19 01/04/19 1515:00 23:00 07:00 IntakeIntake Total 600 ml 50 ml OutputOutput Total 200 ml 1600 ml BalanceBalance -200 ml -1000 ml 50 ml Results/Medications Result Diagram: 01/03/19 0531 01/03/19 0531 Results 24 hrs Laboratory Tests Test 01/03/19 11:33 01/03/19 17:17 01/03/19 20:42 01/04/19 06:41 Bedside Glucose 151 81 177 145 Test 01/04/19 07:42 Bedside Glucose 143 Home Meds Reported Medications Folic Acid/Vitamin B Comp W-C (Renal Multivitamin Tablet) 0.8 Mg Tablet, 1 TAB PO DAILY for 90 Days, #90 12/18/18 Glimepiride* (Glimepiride*) 2 Mg Tablet, 2 MG PO BID for 90 Days, #180 12/18/18 Clopidogrel Bisulfate (Clopidogrel) 75 Mg Tablet, 75 MG PO DAILY for 90 Days, #90 12/18/18 Levofloxacin* (Levofloxacin*) 500 Mg Tablet, 500 MG PO DAILY 12/18/18 Amlodipine Besylate* (Norvasc*) 10 Mg Tablet, 10 MG PO DAILY, TAB 07/12/18 Sevelamer Hcl* (Renagel*) 800 Mg Tablet, 800 MG PO WITH MEALS, TAB 07/12/18 Zinc Sulfate* (Zinc Sulfate*) 220 Mg Cap, 220 MG PO DAILY, CAP 07/12/18 Glipizide* (Glipizide*) 5 Mg Tablet, 5 MG PO AC BREAKFAST DINNER, TAB 07/12/18 Folic Acid/Vitamin B Comp W-C (Nephrocaps Capsule) 1 Mg Capsule, 1 MG PO DAILY, CAP 07/12/18 Atorvastatin* (Atorvastatin*) 80 Mg Tablet, 80 MG PO QHS, #30 TAB 07/12/18 Baclofen* (Baclofen*) 10 Mg Tablet, 10 MG PO TID, TAB 07/12/18 Mirtazapine* (Mirtazapine*) 15 Mg Tablet, 15 MG PO HS, TAB 07/12/18 Aspirin (Low Dose Aspirin) 81 Mg Tablet.dr, 81 MG PO DAILY, #30 TAB 07/12/18 Paroxetine Hcl* (Paxil*) 10 Mg Tablet, 10 MG PO DAILY, TAB 07/12/18 Medications Current Medications Vancomycin HCl (Vanco Iv Per Pharmacy) VANCOMYCIN PER PHARMACY PER PROTOCOL XX ; Start 12/18/18 at 09:30 Hydralazine HCl (Apresoline) 20 mg Q4 PRN IV HIGH BLOOD Last administered on 12/29/18at 15:52; Admin Dose 20 MG; Start 12/18/18 at 09:30 Acetaminophen (Tylenol Tab) 650 mg Q4H PRN PO MILD PAIN(1-3)OR ELEVATED TEMP; Start 12/18/18 at 09:30 Acetaminophen/ Hydrocodone Bitart ([place] (5/325)) 1 tab Q4H PRN PO MODERATE PAIN LEVEL 4-6 Last administered on 12/22/18at 00:00; Admin Dose 1 TAB; Start 12/18/18 at 09:30 Insulin Aspart (Novolog Insulin Pen) NOVOLOG *MILD* ALGORITHM WITH MEALS BEDTIME SC Last administered on 01/04/19at 07:45; Admin Dose 1 UNIT; Start 12/18/18 at 12:00 Aspirin (Halfprin) 81 mg DAILY PO Last administered on 01/04/19at 08:10; Admin Dose 81 MG; Start 12/18/18 at 09:30 Atorvastatin Calcium (Lipitor) 80 mg QHS PO Last administered on 01/03/19at 2 1:39; Admin Dose 80 MG; Start 12/18/18 at 21:00 Baclofen (Lioresal) 10 mg TID PO Last administered on 01/04/19 08:10; Admin Dose 10 MG; Start 12/18/18 at 13:00 Clopidogrel Bisulfate (plaVIX) 75 mg DAILY PO Last administered on 01/04/19 08:10; Admin Dose 75 MG; Start 12/18/18 at 09:30 Multivit/Ca Carb/ B Cmplx/FA/Prenat (Amarilis-Christina) 1 tab DAILY PO Last administered on 01/04/19 08:08; Admin Dose 1 TAB; Start 12/18/18 at 09:30 Mirtazapine (Remeron) 15 mg HS PO Last administered on 01/03/19 21:40; Admin Dose 15 MG; Start 12/18/18 at 21:00 Paroxetine HCl (Paxil) 10 mg DAILY PO Last administered on 01/04/19 08:08; Admin Dose 10 MG; Start 12/18/18 at 09:30 Zinc Sulfate (Zinc Sulfate) 220 mg DAILY PO Last administered on 01/04/19 08:10; Admin Dose 220 MG; Start 12/18/18 at 09:30 Sevelamer Carbonate (Renvela) 800 mg WITH MEALS PO Last administered on 01/04/19 08:08; Admin Dose 800 MG; Start 12/18/18 at 11:30 Diagnostic Test (Pha) (Accu-Chek) 1 ea 02 XX Last administered on 01/04/19 02:00; Admin Dose 1 EA; Start 12/19/18 at 02:00 Miscellaneous Information 1 ea NOTE XX ; Start 12/18/18 at 13:00 Glucose (Glutose) 15 gm Q15M PRN PO DECREASED GLUCOSE Last administered on 12/19/18 22:39; Admin Dose 15 GM; Start 12/18/18 at 13:00 Glucose (Glutose) 22.5 gm Q15M PRN PO DECREASED GLUCOSE Last administered on 12/19/18 23:35; Admin Dose 22.5 GM; Start 12/18/18 at 13:00 Dextrose (D50w Syringe) 25 ml Q15M PRN IV DECREASED GLUCOSE; Start 12/18/18 at 13:00 Dextrose (D50w Syringe) 50 ml Q15M PRN IV DECREASED GLUCOSE Last administered on 12/22/18 07:09; Admin Dose 50 ML; Start 12/18/18 at 13:00 Glucagon (Glucagen) 1 mg Q15M PRN IM DECREASED GLUCOSE; Start 12/18/18 at 13:00 Glucose (Glutose) 15 gm Q15M PRN BUCCAL DECREASED GLUCOSE; Start 12/18/18 at 13:00 Epoetin Josias-epbx (Retacrit (Esrd)) 8,000 unit MoWeFr@1700 SC Last administered on 01/03/19 17:22; Admin Dose 8,000 UNIT; Start 12/18/18 at 17:00 Levofloxacin (Levaquin) 500 mg Q48H PO Last administered on 01/03/19 07:36; Admin Dose 500 MG; Start 12/20/18 at 08:00 Povidone Iodine (Povidone-Iodine) 1 applic BID TOP Last administered on 01/04/19 08:11; Admin Dose 1 APPLIC; Start 12/18/18 at 21:00 Sodium Hypochlorite (Dakins Diluted (1/40)) 1 applic BID TP Last administered on 01/04/19 08:11; Admin Dose 1 APPLIC; Start 12/18/18 at 21:00 Multi-Ingredient Ointment (Eucerin Cream) 1 applic DAILY TOP Last administered on 01/04/19 08:11; Admin Dose 1 APPLIC; Start 12/19/18 at 10:28 Ondansetron HCl (Zofran Inj) 4 mg Q6H PRN IV NAUSEA AND/OR VOMITING Last administered on 12/23/18 05:05; Admin Dose 4 MG; Start 12/21/18 at 13:30 Linagliptin (Tradjenta) 5 mg DAILY PO Last administered on 01/04/19 08:10; Admin Dose 5 MG; Start 12/22/18 at 14:30 Bromocriptine Mesylate (Parlodel) 2.5 mg QHS PO Last administered on 01/03/19 21:39; Admin Dose 2.5 MG; Start 12/22/18 at 21:00 Diagnostic Test (Pha) (Accu-Chek) 1 ea AC MEALS XX Last administered on 01/03/19 17:18; Admin Dose 1 EA; Start 12/22/18 at 17:30 Vancomycin HCl 250 ml @ 125 mls/hr Q96H IVPB Last administered on 12/31/18 12:36; Admin Dose 125 MLS/HR; Start 12/23/18 at 12:00 Metoprolol Tartrate (Lopressor) 100 mg BID PO Last administered on 01/04/19 08:10; Admin Dose 100 MG; Start 12/26/18 at 21:00 Insulin Glargine (Lantus) 4 units DAILY@2000 SC Last administered on 01/03/19 21:43; Admin Dose 4 UNITS; Start 12/29/18 at 20:00 Morphine Sulfate (morphine) 2 mg Q4H PRN IV SEVERE PAIN LEVEL 7-10 Last administered on 12/30/18 01:45; Admin Dose 2 MG; Start 12/29/18 at 19:00 Famotidine (Pepcid) 20 mg DAILY PO Last administered on 01/04/19 08:09; Admin Dose 20 MG; Start 12/31/18 at 09:00 Cilostazol (Pletal) 50 mg BID PO Last administered on 01/04/19 08:09; Admin Dose 50 MG; Start 12/30/18 at 21:00 Dextrose/Sodium Chloride 1,000 ml @ 60 mls/hr [id number] IV Last administered on 01/03/19 17:35; Admin Dose 60 MLS/HR; Start 01/01/19 at 16:30 Lisinopril (Zestril) 20 mg DAILY PO Last administered on 01/04/19 08:09; Admin Dose 20 MG; Start 01/03/19 at 09:00 Assessment/Plan Assessment/Plan (Daily) 1. End-stage renal disease. Plan is for hemodialysis on routine schedule.. We will dialyze for 3 hours 2k bath, calcium 2.5. - all meds dosed ok. - asses daily for hd needs 2. Anemia. Continue to monitor hemoglobin and hematocrit levels. We will give Epogen as needed. currently subtherapeutic. 3. Mineral bone disorder. Monitor calcium and phosphorus levels. 4. Diabetes. Continue current insulin regimen. 5. Diabetic foot ulcer. The patient is status post amputation. Continue to monitor. Follow up with podiatry. 6. History of cerebrovascular accident. Continue medical management. 7. Encephalopathy. No change. 8. Hypertension. Continue current blood pressure regimen. 9. Dyslipidemia. Continue statin therapy. EDMOND MARSHALL MD Jan 04, 2019 09:10
--- NOTE | 2019-01-04 10:13 | CONS ---
Assessment/Plan Assessment/Plan Problems: (1) Type 2 diabetes mellitus with diabetic chronic kidney disease Status: Chronic Comment: Excellent glycemic control on lantus 4 units qhs and tradjenta 5 mg daily. Would cont. 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 Chronic kidney disease stage: on chronic dialysis Qualified Codes: E11.22 - Type 2 diabetes mellitus with diabetic chronic kidney disease; N18.6 - End stage renal disease; Z79.4 - long-term (current) use of insulin; Z99.2 - Dependence on renal dialysis Consultation Date/Type/Reason Admit Date/Time Dec 18, 2018 at 04:02 Initial Consult Date 12/22/18 Type of Consult Endocrinology Reason for Consultation T2DM management Requesting Provider: ADRIANA JUSTICE Date/Time of Note DATE: 01/04/19 TIME: 10:10 24 HR Interval Summary Free Text/Dictation Primary team planning d/c today Constitutional: no complaints Exam/Review of Systems Exam Vitals VS - Last 72 Hours, by Label Date Temp Pulse Resp B/P (MAP) Pulse Ox O2 O2 Flow FiO2 Time Delivery Rate 01/04/19 98.8 78 18 112/54 98 08:02 (73) 01/04/19 77 08:00 01/04/19 Nasal 3.0 07:54 Cannula 01/04/19 98.7 86 20 98/53 (68) 100 04:00 01/04/19 82 04:00 01/04/19 3.0 02:45 01/04/19 87 00:00 01/04/19 98.6 86 20 104/54 100 00:00 (71) 01/03/19 Nasal 3.0 21:00 Cannula 01/03/19 88 20:00 01/03/19 98.3 87 18 113/57 100 20:00 (75) 01/03/19 3.0 19:00 01/03/19 79 16:09 01/03/19 86 15:50 01/03/19 97.7 89 18 127/75 97 15:50 (92) 01/03/19 79 15:30 01/03/19 78 15:15 01/03/19 81 15:00 01/03/19 79 14:45 01/03/19 80 14:30 01/03/19 79 14:15 01/03/19 80 14:00 01/03/19 80 13:45 01/03/19 81 13:30 01/03/19 82 13:15 01/03/19 83 13:00 01/03/19 84 12:50 01/03/19 84 110/57 Nasal 3.0 12:30 (74) Cannula 01/03/19 97.9 89 18 99/58 (72) 96 12:13 01/03/19 82 12:03 01/03/19 87 08:26 01/03/19 3.0 07:59 01/03/19 97.8 50 16 112/63 90 07:23 (79) 01/03/19 78 04:00 01/03/19 97.8 78 20 132/56 97 Room Air 04:00 (81) 01/03/19 75 00:00 01/02/19 98.0 75 18 116/59 97 Room Air 23:25 (78) 01/02/19 97.9 87 20 146/72 94 Room Air 20:00 (96) High Flow 01/02/19 89 20:00 01/02/19 89 16:19 01/02/19 98.1 89 20 138/61 100 Room Air 15:04 (86) 01/02/19 98.2 84 15 132/77 98 Room Air 14:30 (95) 01/02/19 86 16 138/74 99 Room Air 14:25 (95) 01/02/19 86 16 141/74 99 Room Air 14:20 (96) 01/02/19 86 18 139/65 100 Room Air 14:15 (89) 01/02/19 84 15 132/70 98 Room Air 14:10 (90) 01/02/19 78 20 138/68 100 Nasal 2.0 14:05 (91) Cannula 01/02/19 80 19 131/71 99 Nasal 2.0 14:00 (91) Cannula 01/02/19 80 20 138/70 99 Nasal 2.0 13:55 (92) Cannula 01/02/19 98.0 80 20 145/70 99 Nasal 2.0 13:50 (95) Cannula 01/02/19 74 12:08 01/02/19 97.7 78 20 147/76 100 Room Air 11:39 (99) 01/02/19 77 08:02 01/02/19 98.2 75 20 74/40 (51) 98 Room Air 07:58 01/02/19 98.2 19 125/68 100 04:00 (87) 01/02/19 82 04:00 01/02/19 98.6 87 18 97/51 (66) 97 00:00 01/02/19 88 00:00 01/01/19 90 128/61 20:51 (83) 01/01/19 Nasal 3.0 20:20 Cannula 01/01/19 98.0 88 17 106/56 99 20:00 (73) 01/01/19 88 20:00 01/01/19 95 16:06 01/01/19 87 18 136/68 98 Room Air 13:40 (90) 01/01/19 105 13:20 01/01/19 95 13:05 01/01/19 91 12:50 01/01/19 83 12:35 01/01/19 83 12:20 01/01/19 84 12:05 01/01/19 82 12:02 01/01/19 97.4 82 15 120/68 98 Nasal 11:56 (85) Cannula 01/01/19 82 11:50 01/01/19 83 11:35 01/01/19 83 11:20 01/01/19 83 11:05 01/01/19 84 10:50 01/01/19 85 10:35 01/01/19 87 18 130/69 98 Room Air 10:20 (89) 01/01/19 86 10:20 Vital Signs Date Temp Pulse Resp B/P (MAP) Pulse Ox O2 O2 Flow FiO2 Time Delivery Rate 01/04/19 98.8 78 18 112/54 98 08:02 (73) 01/04/19 Nasal 3.0 07:54 Cannula Intake and Output 01/03/19 01/03/19 01/04/19 1515:00 23:00 07:00 IntakeIntake Total 600 ml 50 ml OutputOutput Total 200 ml 1600 ml BalanceBalance -200 ml -1000 ml 50 ml Constitutional: alert, frail; No oriented Respiratory: clear to auscultation, normal air movement Cardiovascular: regular rate and rhythm; No edema, No murmurs/extra sounds, No rub Gastrointestinal: soft, nl liver, spleen, non-tender, bowel sounds; No mass, No rebound or guarding Musculoskeletal: No nl extremities to inspection (BLE wrapped ) Extremities: No cyanosis, No clubbing, No edema Neurological: HEAD TELLER II-XII intact, nl speech, nl strength Additional Comments Bedside Glucose - 72 Hours Test 01/01/19 11:59 01/01/19 17:44 01/01/19 20:53 01/02/19 02:26 Bedside 157 220 181 174 Glucose mg/dL (70-220) mg/dL (70-220) mg/dL (70-220) mg/dL (70-220) Test 01/02/19 06:26 01/02/19 11:48 01/02/19 17:15 01/02/19 20:47 Bedside 195 194 175 191 Glucose mg/dL (70-220) mg/dL (70-220) mg/dL (70-220) mg/dL (70-220) Test 01/03/19 02:28 01/03/19 07:30 01/03/19 11:33 01/03/19 17:17 Bedside 176 126 151 81 Glucose mg/dL (70-220) mg/dL (70-220) mg/dL (70-220) mg/dL (70-220) Test 01/03/19 20:42 01/04/19 06:41 01/04/19 07:42 Bedside 177 145 143 Glucose mg/dL (70-220) mg/dL (70-220) mg/dL (70-220) Results Result Diagram: 01/03/19 0531 01/03/19 0531 Results 24hrs Laboratory Tests Test 01/03/19 11:33 01/03/19 17:17 01/03/19 20:42 01/04/19 06:41 Bedside Glucose 151 81 177 145 Test 01/04/19 07:42 Bedside Glucose 143 Medications Medication Current Medications Vancomycin HCl (Vanco Iv Per Pharmacy) VANCOMYCIN PER PHARMACY PER PROTOCOL XX ; Start 12/18/18 at 09:30 Hydralazine HCl (Apresoline) 20 mg Q4 PRN IV HIGH BLOOD Last administered on 12/29/18at 15:52; Admin Dose 20 MG; Start 12/18/18 at 09:30 Acetaminophen (Tylenol Tab) 650 mg Q4H PRN PO MILD PAIN(1-3)OR ELEVATED TEMP; Start 12/18/18 at 09:30 Acetaminophen/ Hydrocodone Bitart ([place] (5/325)) 1 tab Q4H PRN PO MODERATE PAIN LEVEL 4-6 Last administered on 12/22/18 00:00; Admin Dose 1 TAB; Start 12/18/18 at 09:30 Insulin Aspart (Novolog Insulin Pen) NOVOLOG *MILD* ALGORITHM WITH MEALS BEDTIME SC Last administered on 01/04/19 07:45; Admin Dose 1 UNIT; Start 12/18/18 at 12:00 Aspirin (Halfprin) 81 mg DAILY PO Last administered on 01/04/19 08:10; Admin Dose 81 MG; Start 12/18/18 at 09:30 Atorvastatin Calcium (Lipitor) 80 mg QHS PO Last administered on 01/03/19 21:39; Admin Dose 80 MG; Start 12/18/18 at 21:00 Baclofen (Lioresal) 10 mg TID PO Last administered on 01/04/19 08:10; Admin Dose 10 MG; Start 12/18/18 at 13:00 Clopidogrel Bisulfate (plaVIX) 75 mg DAILY PO Last administered on 01/04/19 08:10; Admin Dose 75 MG; Start 12/18/18 at 09:30 Multivit/Ca Carb/ B Cmplx/FA/Prenat (Amarilis-Christina) 1 tab DAILY PO Last administered on 01/04/19 08:08; Admin Dose 1 TAB; Start 12/18/18 at 09:30 Mirtazapine (Remeron) 15 mg HS PO Last administered on 01/03/19 21:40; Admin Dose 15 MG; Start 12/18/18 at 21:00 Paroxetine HCl (Paxil) 10 mg DAILY PO Last administered on 01/04/19 08:08; Admin Dose 10 MG; Start 12/18/18 at 09:30 Zinc Sulfate (Zinc Sulfate) 220 mg DAILY PO Last administered on 01/04/19 08:10; Admin Dose 220 MG; Start 12/18/18 at 09:30 Sevelamer Carbonate (Renvela) 800 mg WITH MEALS PO Last administered on 01/04/19 08:08; Admin Dose 800 MG; Start 12/18/18 at 11:30 Diagnostic Test (Pha) (Accu-Chek) 1 ea 02 XX Last administered on 6/22/19at 02:00; Admin Dose 1 EA; Start 12/19/18 at 02:00 Miscellaneous Information 1 ea NOTE XX ; Start 12/18/18 at 13:00 Glucose (Glutose) 15 gm Q15M PRN PO DECREASED GLUCOSE Last administered on 12/19/18at 22:39; Admin Dose 15 GM; Start 12/18/18 at 13:00 Glucose (Glutose) 22.5 gm Q15M PRN PO DECREASED GLUCOSE Last administered on 12/19/18at 23:35; Admin Dose 22.5 GM; Start 12/18/18 at 13:00 Dextrose (D50w Syringe) 25 ml Q15M PRN IV DECREASED GLUCOSE; Start 12/18/18 at 13:00 Dextrose (D50w Syringe) 50 ml Q15M PRN IV DECREASED GLUCOSE Last administered on 12/22/18at 07:09; Admin Dose 50 ML; Start 12/18/18 at 13:00 Glucagon (Glucagen) 1 mg Q15M PRN IM DECREASED GLUCOSE; Start 12/18/18 at 13:00 Glucose (Glutose) 15 gm Q15M PRN BUCCAL DECREASED GLUCOSE; Start 12/18/18 at 13:00 Epoetin Josias-epbx (Retacrit (Esrd)) 8,000 unit MoWeFr@1700 SC Last administered on 01/03/19at 17:22; Admin Dose 8,000 UNIT; Start 12/18/18 at 17:00 Levofloxacin (Levaquin) 500 mg Q48H PO Last administered on 01/03/19at 07:36; Admin Dose 500 MG; Start 12/20/18 at 08:00 Povidone Iodine (Povidone-Iodine) 1 applic BID TOP Last administered on 01/04/19 08:11; Admin Dose 1 APPLIC; Start 12/18/18 at 21:00 Sodium Hypochlorite (Dakins Diluted (1/40)) 1 applic BID TP Last administered on 01/04/19 08:11; Admin Dose 1 APPLIC; Start 12/18/18 at 21:00 Multi-Ingredient Ointment (Eucerin Cream) 1 applic DAILY TOP Last administered on 01/04/19 08:11; Admin Dose 1 APPLIC; Start 12/19/18 at 10:28 Ondansetron HCl (Zofran Inj) 4 mg Q6H PRN IV NAUSEA AND/OR VOMITING Last administered on 12/23/18 05:05; Admin Dose 4 MG; Start 12/21/18 at 13:30 Linagliptin (Tradjenta) 5 mg DAILY PO Last administered on 01/04/19 08:10; A dmin Dose 5 MG; Start 12/22/18 at 14:30 Bromocriptine Mesylate (Parlodel) 2.5 mg QHS PO Last administered on 01/03/19 21:39; Admin Dose 2.5 MG; Start 12/22/18 at 21:00 Diagnostic Test (Pha) (Accu-Chek) 1 ea AC MEALS XX Last administered on 01/03/19 17:18; Admin Dose 1 EA; Start 12/22/18 at 17:30 Vancomycin HCl 250 ml @ 125 mls/hr Q96H IVPB Last administered on 12/31/18 12:36; Admin Dose 125 MLS/HR; Start 12/23/18 at 12:00 Metoprolol Tartrate (Lopressor) 100 mg BID PO Last administered on 01/04/19 08:10; Admin Dose 100 MG; Start 12/26/18 at 21:00 Insulin Glargine (Lantus) 4 units DAILY@2000 SC Last administered on 01/03/19 21:43; Admin Dose 4 UNITS; Start 12/29/18 at 20:00 Morphine Sulfate (morphine) 2 mg Q4H PRN IV SEVERE PAIN LEVEL 7-10 Last administered on 12/30/18 01:45; Admin Dose 2 MG; Start 12/29/18 at 19:00 Famotidine (Pepcid) 20 mg DAILY PO Last administered on 01/04/19 08:09; Admin Dose 20 MG; Start 12/31/18 at 09:00 Cilostazol (Pletal) 50 mg BID PO Last administered on 01/04/19 08:09; Admin Dose 50 MG; Start 12/30/18 at 21:00 Dextrose/Sodium Chloride 1,000 ml @ 60 mls/hr [id number] IV Last administered on 01/03/19 17:35; Admin Dose 60 MLS/HR; Start 01/01/19 at 16:30 Lisinopril (Zestril) 20 mg DAILY PO Last administered on 6/22/19at 08:09; Admin Dose 20 MG; Start 01/03/19 at 09:00 SUMAN ART MD Jan 04, 2019 10:13
--- NOTE | 2019-01-04 11:07 | CONS ---
Assessment/Plan Assessment/Plan Hospital Course (Demo Recall) ID PROGRESS NOTE CURRENT ABX: DAY # =>Vanco IV + Levaquin 24H INTERVAL SUMMARY * POD #2 -> s/p 01/02/19 2nd toe amputation * Awake, alert, cataract w/blindness, aphasic, No fevers, he moves all extremities w/shaking of BUEXT * 12/20/18 CT Brain: No acute intracranial findings.Old right frontoparietal i nfarct, with additional old smaller infarct in the right basal ganglia and maza radiata. Background chronic microvascular ischemic disease. MICRO/OTHER * 12/18/18 BCX (-) PHYSICAL EXAMINATION: GENERAL: VSS, NAD, frail chronic debility - aphasic HEENT: AT, NC, anicteric, right eye cataract, left eye with larger pupil NECK: Supple, CHEST: Equal chest rise bilaterally, without dyspnea on observation HEART: Pulse RRR ABDOMEN: Soft : deferred EXTREMITIES: Warm, dry == muscle wasting, BLEXT wounds SKIN: No rash, no diaphoresis ID ASSESSMENT 63 yo M w/Hx of CVA admit with: 1. Bilateral lower extremities wounds with cellulitis and osteomyelitis * s/p 2nd toe amputation 01/02/19 2. End-stage renal disease 3. Diabetes 4. Diabetic neuropathy 5. 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 Continue current ABX 2. ID BUSINESS DATABASE ANALYST colleague to return Sunday for f/u * Plan:Per ID colleague quoting: "will dw podiatry if pt further needs to be treated for OM" . . Consultation Date/Type/Reason Admit Date/Time Dec 18, 2018 at 04:02 Initial Consult Date 12/18/18 Requesting Provider: ADRIANA JUSTICE Date/Time of Note DATE: 01/04/19 TIME: 11:07 Exam/Review of Systems Exam Vitals Vital Signs Date Temp Pulse Resp B/P (MAP) Pulse Ox O2 O2 Flow FiO2 Time Delivery Rate 01/04/19 98.8 78 18 112/54 98 08:02 (73) 01/04/19 Nasal 3.0 07:54 Cannula Intake and Output 01/03/19 01/03/19 01/04/19 1515:00 23:00 07:00 IntakeIntake Total 600 ml 50 ml OutputOutput Total 200 ml 1600 ml BalanceBalance -200 ml -1000 ml 50 ml Results Result Diagram: 01/03/19 0531 01/03/19 0531 Results 24hrs Laboratory Tests Test 01/03/19 11:33 01/03/19 17:17 01/03/19 20:42 01/04/19 06:41 Bedside Glucose 151 81 177 145 Test 01/04/19 07:42 Bedside Glucose 143 Medications Medication Current Medications Vancomycin HCl (Vanco Iv Per Pharmacy) VANCOMYCIN PER PHARMACY PER PROTOCOL XX ; Start 12/18/18 at 09:30 Hydralazine HCl (Apresoline) 20 mg Q4 PRN IV HIGH BLOOD Last administered on 12/29/18at 15:52; Admin Dose 20 MG; Start 12/18/18 at 09:30 Acetaminophen (Tylenol Tab) 650 mg Q4H PRN PO MILD PAIN(1-3)OR ELEVATED TEMP; Start 12/18/18 at 09:30 Acetaminophen/ Hydrocodone Bitart ([place] (5/325)) 1 tab Q4H PRN PO MODERATE PAIN LEVEL 4-6 Last administered on 12/22/18at 00:00; Admin Dose 1 TAB; Start 12/18/18 at 09:30 Insulin Aspart (Novolog Insulin Pen) NOVOLOG *MILD* ALGORITHM WITH MEALS BEDTIME SC Last administered on 01/04/19at 07:45; Admin Dose 1 UNIT; Start 12/18/18 at 12:00 Aspirin (Halfprin) 81 mg DAILY PO Last administered on 01/04/19at 08:10; Admin Dose 81 MG; Start 12/18/18 at 09:30 Atorvastatin Calcium (Lipitor) 80 mg QHS PO Last administered on 01/03/19at 21:39; Admin Dose 80 MG; Start 12/18/18 at 21:00 Baclofen (Lioresal) 10 mg TID PO Last administered on 01/04/19 08:10; Admin Dose 10 MG; Start 12/18/18 at 13:00 Clopidogrel Bisulfate (plaVIX) 75 mg DAILY PO Last administered on 01/04/19 08:10; Admin Dose 75 MG; Start 12/18/18 at 09:30 Multivit/Ca Carb/ B Cmplx/FA/Prenat (Amarilis-Christina) 1 tab DAILY PO Last administered on 01/04/19 08:08; Admin Dose 1 TAB; Start 12/18/18 at 09:30 Mirtazapine (Remeron) 15 mg HS PO Last administered on 01/03/19at 21:40; Admin Dose 15 MG; Start 12/18/18 at 21:00 Paroxetine HCl (Paxil) 10 mg DAILY PO Last administered on 01/04/19 08:08; Admin Dose 10 MG; Start 12/18/18 at 09:30 Zinc Sulfate (Zinc Sulfate) 220 mg DAILY PO Last administered on 01/04/19 08:10; Admin Dose 220 MG; Start 12/18/18 at 09:30 Sevelamer Carbonate (Renvela) 800 mg WITH MEALS PO Last administered on 01/04/19 08:08; Admin Dose 800 MG; Start 12/18/18 at 11:30 Diagnostic Test (Pha) (Accu-Chek) 1 ea 02 XX Last administered on 01/04/19at 02:00; Admin Dose 1 EA; Start 12/19/18 at 02:00 Miscellaneous Information 1 ea NOTE XX ; Start 12/18/18 at 13:00 Glucose (Glutose) 15 gm Q15M PRN PO DECREASED GLUCOSE Last administered on 12/19/18at 22:39; Admin Dose 15 GM; Start 12/18/18 at 13:00 Glucose (Glutose) 22.5 gm Q15M PRN PO DECREASED GLUCOSE Last administered on 12/19/18at 23:35; Admin Dose 22.5 GM; Start 12/18/18 at 13:00 Dextrose (D50w Syringe) 25 ml Q15M PRN IV DECREASED GLUCOSE; Start 12/18/18 at 13:00 Dextrose (D50w Syringe) 50 ml Q15M PRN IV DECREASED GLUCOSE Last administered on 12/22/18 07:09; Admin Dose 50 ML; Start 12/18/18 at 13:00 Glucagon (Glucagen) 1 mg Q15M PRN IM DECREASED GLUCOSE; Start 12/18/18 at 13:00 Glucose (Glutose) 15 gm Q15M PRN BUCCAL DECREASED GLUCOSE; Start 12/18/18 at 13:00 Epoetin Josias-epbx (Retacrit (Esrd)) 8,000 unit MoWeFr@1700 SC Last administered on 01/03/19 17:22; Admin Dose 8,000 UNIT; Start 12/18/18 at 17:00 Levofloxacin (Levaquin) 500 mg Q48H PO Last administered on 01/03/19 07:36; Admin Dose 500 MG; Start 12/20/18 at 08:00 Povidone Iodine (Povidone-Iodine) 1 applic BID TOP Last administered on 01/04/19 08:11; Admin Dose 1 APPLIC; Start 12/18/18 at 21:00 Sodium Hypochlorite (Dakins Diluted ()) 1 applic BID TP Last administered on 01/04/19 08:11; Admin Dose 1 APPLIC; Start 12/18/18 at 21:00 Multi-Ingredient Ointment (Eucerin Cream) 1 applic DAILY TOP Last administered on 01/04/19 08:11; Admin Dose 1 APPLIC; Start 12/19/18 at 10:28 Ondansetron HCl (Zofran Inj) 4 mg Q6H PRN IV NAUSEA AND/OR VOMITING Last administered on 12/23/18 05:05; Admin Dose 4 MG; Start 12/21/18 at 13:30 Linagliptin (Tradjenta) 5 mg DAILY PO Last administered on 01/04/19 08:10; Adm in Dose 5 MG; Start 12/22/18 at 14:30 Bromocriptine Mesylate (Parlodel) 2.5 mg QHS PO Last administered on 01/03/19 21:39; Admin Dose 2.5 MG; Start 12/22/18 at 21:00 Diagnostic Test (Pha) (Accu-Chek) 1 ea AC MEALS XX Last administered on 01/03/19 17:18; Admin Dose 1 EA; Start 12/22/18 at 17:30 Vancomycin HCl 250 ml @ 125 mls/hr Q96H IVPB Last administered on 12/31/18 12:36; Admin Dose 125 MLS/HR; Start 12/23/18 at 12:00 Metoprolol Tartrate (Lopressor) 100 mg BID PO Last administered on 01/04/19 08:10; Admin Dose 100 MG; Start 12/26/18 at 21:00 Insulin Glargine (Lantus) 4 units DAILY@2000 SC Last administered on 01/03/19at 21:43; Admin Dose 4 UNITS; Start 12/29/18 at 20:00 Morphine Sulfate (morphine) 2 mg Q4H PRN IV SEVERE PAIN LEVEL 7-10 Last administered on 12/30/18at 01:45; Admin Dose 2 MG; Start 12/29/18 at 19:00 Famotidine (Pepcid) 20 mg DAILY PO Last administered on 01/04/19at 08:09; Admin Dose 20 MG; Start 12/31/18 at 09:00 Cilostazol (Pletal) 50 mg BID PO Last administered on 01/04/19 08:09; Admin Dose 50 MG; Start 12/30/18 at 21:00 Dextrose/Sodium Chloride 1,000 ml @ 60 mls/hr [id number] IV Last administered on 01/03/19at 17:35; Admin Dose 60 MLS/HR; Start 01/01/19 at 16:30 Lisinopril (Zestril) 20 mg DAILY PO Last administered on 01/04/19 08:09; Admin Dose 20 MG; Start 01/03/19 at 09:00 HELEN TRIANA NP Jan 04, 2019 11:07
[2019-01-04] MEDS: VANCOMYCIN 1 GM 250 ML IVPB SCH (12:10)
--- NOTE | 2019-01-04 13:03 | CONS ---
Consult Date/Type/Reason Admit Date/Time Dec 18, 2018 at 04:02 Initial Consult Date 12/22/18 Requesting Provider: ADRIANA JUSTICE Date/Time of Note DATE: 01/04/19 TIME: 13:01 Subjective No acute events - pt comfortable - family at bedside - denies CP now - will keep euvolemic with HD. ROS: No fever, no chills, no nausea, no vomiting, no diarrhea/constipation No recent weight changes No chest pain, no PND, no orthopnea - mild LE pain and mild SOB No dizziness, blurred vision No thirst, no heat or cold intolerance Objective Vitals Vital Signs Date Temp Pulse Resp B/P (MAP) Pulse Ox O2 O2 Flow FiO2 Time Delivery Rate 01/04/19 84 12:00 01/04/19 98.0 17 118/56 100 11:33 (76) 01/04/19 Nasal 3.0 07:54 Cannula Intake and Output 01/03/19 01/03/19 01/04/19 1515:00 23:00 07:00 IntakeIntake Total 600 ml 50 ml OutputOutput Total 200 ml 1600 ml BalanceBalance -200 ml -1000 ml 50 ml Exam General: WN/WD/NAD, AOx 3 HEENT: Unicetric/atraumatic/EOMI (follows commands) NECK: JVD elevated, no thyromegaly Lymph: no lymphadenopathy HEART: regular with no S3, II/ systolic murmur at apex, PMI L LUNGS: Coarse sounds ABD: soft, NT, ND, +BS : Intact Neuro: non focal SKIN: chronic changes EXT: trace edema Results/Medications Result Diagram: 01/03/19 0531 01/03/19 0531 Results 24 hrs Laboratory Tests Test 01/03/19 17:17 01/03/19 20:42 01/04/19 06:41 01/04/19 07:42 Bedside Glucose 81 177 145 143 Test 01/04/19 11:50 Bedside Glucose 213 Home Meds Reported Medications Folic Acid/Vitamin B Comp W-C (Renal Multivitamin Tablet) 0.8 Mg Tablet, 1 TAB PO DAILY for 90 Days, #90 12/18/18 Glimepiride* (Glimepiride*) 2 Mg Tablet, 2 MG PO BID for 90 Days, #180 12/18/18 Clopidogrel Bisulfate (Clopidogrel) 75 Mg Tablet, 75 MG PO DAILY for 90 Days, #90 12/18/18 Levofloxacin* (Levofloxacin*) 500 Mg Tablet, 500 MG PO DAILY 12/18/18 Amlodipine Besylate* (Norvasc*) 10 Mg Tablet, 10 MG PO DAILY, TAB 07/12/18 Sevelamer Hcl* (Renagel*) 800 Mg Tablet, 800 MG PO WITH MEALS, TAB 07/12/18 Zinc Sulfate* (Zinc Sulfate*) 220 Mg Cap, 220 MG PO DAILY, CAP 07/12/18 Glipizide* (Glipizide*) 5 Mg Tablet, 5 MG PO AC BREAKFAST DINNER, TAB 07/12/18 Folic Acid/Vitamin B Comp W-C (Nephrocaps Capsule) 1 Mg Capsule, 1 MG PO DAILY, CAP 07/12/18 Atorvastatin* (Atorvastatin*) 80 Mg Tablet, 80 MG PO QHS, #30 TAB 07/12/18 Baclofen* (Baclofen*) 10 Mg Tablet, 10 MG PO TID, TAB 07/12/18 Mirtazapine* (Mirtazapine*) 15 Mg Tablet, 15 MG PO HS, TAB 07/12/18 Aspirin (Low Dose Aspirin) 81 Mg Tablet.dr, 81 MG PO DAILY, #30 TAB 07/12/18 Paroxetine Hcl* (Paxil*) 10 Mg Tablet, 10 MG PO DAILY, TAB 07/12/18 Medications Current Medications Vancomycin HCl (Vanco Iv Per Pharmacy) VANCOMYCIN PER PHARMACY PER PROTOCOL XX ; Start 12/18/18 at 09:30 Hydralazine HCl (Apresoline) 20 mg Q4 PRN IV HIGH BLOOD Last administered on 12/29/18at 15:52; Admin Dose 20 MG; Start 12/18/18 at 09:30 Acetaminophen (Tylenol Tab) 650 mg Q4H PRN PO MILD PAIN(1-3)OR ELEVATED TEMP; Start 12/18/18 at 09:30 Acetaminophen/ Hydrocodone Bitart ([place] (5/325)) 1 tab Q4H PRN PO MODERATE PAIN LEVEL 4-6 Last administered on 12/22/18at 00:00; Admin Dose 1 TAB; Start 12/18 at 09:30 Insulin Aspart (Novolog Insulin Pen) NOVOLOG *MILD* ALGORITHM WITH MEALS BEDTIME SC Last administered on 01/04/19at 11:56; Admin Dose 2 UNIT; Start 12/18/18 at 12:00 Aspirin (Halfprin) 81 mg DAILY PO Last administered on 01/04/19 08:10; Admin Dose 81 MG; Start 12/18/18 at 09:30 Atorvastatin Calcium (Lipitor) 80 mg QHS PO Last administered on 01/03/19 21:39; Admin Dose 80 MG; Start 12/18/18 at 21:00 Baclofen (Lioresal) 10 mg TID PO Last administered on 01/04/19 12:14; Admin Dose 10 MG; Start 12/18/18 at 13:00 Clopidogrel Bisulfate (plaVIX) 75 mg DAILY PO Last administered on 01/04/19 08:10; Admin Dose 75 MG; Start 12/18/18 at 09:30 Multivit/Ca Carb/ B Cmplx/FA/Prenat (Amarilis-Christina) 1 tab DAILY PO Last administered on 01/04/19 08:08; Admin Dose 1 TAB; Start 12/18/18 at 09:30 Mirtazapine (Remeron) 15 mg HS PO Last administered on 01/03/19 21:40; Admin Dose 15 MG; Start 12/18/18 at 21:00 Paroxetine HCl (Paxil) 10 mg DAILY PO Last administered on 01/04/19 08:08; Admin Dose 10 MG; Start 12/18/18 at 09:30 Zinc Sulfate (Zinc Sulfate) 220 mg DAILY PO Last administered on 01/04/19 08:10; Admin Dose 220 MG; Start 12/18/18 at 09:30 Sevelamer Carbonate (Renvela) 800 mg WITH MEALS PO Last administered on 01/04/19 12:14; Admin Dose 800 MG; Start 12/18/18 at 11:30 Diagnostic Test (Pha) (Accu-Chek) 1 ea 02 XX Last administered on 01/04/19 02:00; Admin Dose 1 EA; Start 12/19/18 at 02:00 Miscellaneous Information 1 ea NOTE XX ; Start 12/18/18 at 13:00 Glucose (Glutose) 15 gm Q15M PRN PO DECREASED GLUCOSE Last administered on 12/19/18 22:39; Admin Dose 15 GM; Start 12/18/18 at 13:00 Glucose (Glutose) 22.5 gm Q15M PRN PO DECREASED GLUCOSE Last administered on 12/19/18 23:35; Admin Dose 22.5 GM; Start 12/18/18 at 13:00 Dextrose (D50w Syringe) 25 ml Q15M PRN IV DECREASED GLUCOSE; Start 12/18/18 at 13:00 Dextrose (D50w Syringe) 50 ml Q15M PRN IV DECREASED GLUCOSE Last administered on 12/22/18 07:09; Admin Dose 50 ML; Start 12/18/18 at 13:00 Glucagon (Glucagen) 1 mg Q15M PRN IM DECREASED GLUCOSE; Start 12/18/18 at 13:00 Glucose (Glutose) 15 gm Q15M PRN BUCCAL DECREASED GLUCOSE; Start 12/18/18 at 13:00 Epoetin Josias-epbx (Retacrit (Esrd)) 8,000 unit MoWeFr@1700 SC Last administered on 01/03/19 17:22; Admin Dose 8,000 UNIT; Start 12/18/18 at 17:00 Levofloxacin (Levaquin) 500 mg Q48H PO Last administered on 01/03/19at 07:36; Admin Dose 500 MG; Start 12/20/18 at 08:00 Povidone Iodine (Povidone-Iodine) 1 applic BID TOP Last administered on 01/04/19 08:11; Admin Dose 1 APPLIC; Start 12/18/18 at 21:00 Sodium Hypochlorite (Dakins Diluted (1/40)) 1 applic BID TP Last administered on 01/04/19 08:11; Admin Dose 1 APPLIC; Start 12/18/18 at 21:00 Multi-Ingredient Ointment (Eucerin Cream) 1 applic DAILY TOP Last administered on 01/04/19 08:11; Admin Dose 1 APPLIC; Start 12/19/18 at 10:28 Ondansetron HCl (Zofran Inj) 4 mg Q6H PRN IV NAUSEA AND/OR VOMITING Last admi nistered on 12/23/18 05:05; Admin Dose 4 MG; Start 12/21/18 at 13:30 Linagliptin (Tradjenta) 5 mg DAILY PO Last administered on 01/04/19 08:10; Admin Dose 5 MG; Start 12/22/18 at 14:30 Bromocriptine Mesylate (Parlodel) 2.5 mg QHS PO Last administered on 01/03/19 21:39; Admin Dose 2.5 MG; Start 12/22/18 at 21:00 Diagnostic Test (Pha) (Accu-Chek) 1 ea AC MEALS XX Last administered on 01/03/19 17:18; Admin Dose 1 EA; Start 12/22/18 at 17:30 Vancomycin HCl 250 ml @ 125 mls/hr Q96H IVPB Last administered on 01/04/19 12:10; Admin Dose 125 MLS/HR; Start 12/23/18 at 12:00 Metoprolol Tartrate (Lopressor) 100 mg BID PO Last administered on 01/04/19 08:10; Admin Dose 100 MG; Start 12/26/18 at 21:00 Insulin Glargine (Lantus) 4 units DAILY@2000 SC Last administered on 01/03/19 21:43; Admin Dose 4 UNITS; Start 12/29/18 at 20:00 Morphine Sulfate (morphine) 2 mg Q4H PRN IV SEVERE PAIN LEVEL 7-10 Last administered on 12/30/18 01:45; Admin Dose 2 MG; Start 12/29/18 at 19:00 Famotidine (Pepcid) 20 mg DAILY PO Last administered on 01/04/19 08:09; Admin Dose 20 MG; Start 12/31/18 at 09:00 Cilostazol (Pletal) 50 mg BID PO Last administered on 01/04/19 08:09; Admin Dose 50 MG; Start 12/30/18 at 21:00 Dextrose/Sodium Chloride 1,000 ml @ 60 mls/hr [id number] IV Last administered on 01/03/19 17:35; Admin Dose 60 MLS/HR; Start 01/01/19 at 16:30 Lisinopril (Zestril) 20 mg DAILY PO Last administered on 01/04/19 08:09; Admin Dose 20 MG; Start 01/03/19 at 09:00 Assessment/Plan Hospital Course (Demo Recall) 1. Preoperative evaluation prior to possible toe amputation and possible need for further evaluation.-neg trop x 3. NL EF by echo. Ok to proceed with toe amputation under nerve block or MAC at moderate CV risk from cardiac standpoint but have concern for neuological status - surgical team follows - stable now - ain controlled 2. Hypertension-well controlled - con't to treat medically - on mes + HD 3. History of dyslipidemia. 4. Peripheral arterial disease with nonhealing lower extremity ulcers- vascular team follows 5. Nonhealing lower extremity ulcers - wound care now. 6. Cellulitis - on antibiotics 7. Diabetes mellitus- on meds. 8. Psychiatric disorder. 9. New change in MS-? CVA-head CT 12/20 neg for acute changes. ECG most recent without acute changes. -MS at baseline today - stable LAUREN PARMAR MD Jan 04, 2019 13:03
[2019-01-04] MEDS: BROMOCRIPTINE 2.5 MG TAB PO SCH (21:28)
[2019-01-04] MEDS: ATORVASTATIN 80 MG TAB PO SCH (21:29)
[2019-01-04] MEDS: MIRTAZAPINE 15 MG TAB PO SCH (21:29)
[2019-01-04] MEDS ORDERED: GLIMEPIRIDE 2 MG TAB PO SCH (23:30)
[2019-01-05] VITALS: BP 118/58; PULSE 85; PULSE 91; RESP 18
[2019-01-05] MEDS: ACCU-CHEK XX SCH ×4 (02:00→17:43)
[2019-01-05 02:50] VITALS: BP 127/60; PULSE 67; RESP 18
[2019-01-05] MEDS: INSULIN ASPART [NOVOLOG] 3 ML PEN SC SCH ×7 (08:00→21:00)
[2019-01-05] MEDS: glipiZIDE 5 MG TAB PO SCH ×2 (08:02→17:41)
[2019-01-05] MEDS: SEVELAMER CARBONATE 800 MG TABLET PO SCH ×3 (08:03→17:41)
[2019-01-05] MEDS: LEVOFLOXACIN 500 MG TAB PO SCH (08:03)
[2019-01-05 08:08] VITALS: BP 116/58; PULSE 80; RESP 17
[2019-01-05] MEDS: BACLOFEN 10 MG TAB PO SCH ×3 (08:16→21:04)
[2019-01-05] MEDS: CLOPIDOGREL 75 MG TAB PO SCH (08:16)
[2019-01-05] MEDS: MULTIVIT/CA CARB/B CMPLX/FA TAB PO SCH (08:16)
[2019-01-05] MEDS: FAMOTIDINE 20 MG TAB PO SCH (08:16)
[2019-01-05] MEDS: ASPIRIN (EC) 81 MG TAB PO SCH (08:16)
[2019-01-05] MEDS: ZINC SULFATE 220 MG CAP PO SCH (08:16)
[2019-01-05] MEDS: PAROXETINE 10 MG TAB PO SCH (08:16)
[2019-01-05] MEDS: LINAGLIPTIN 5 MG TABLET PO SCH (08:17)
[2019-01-05] MEDS: METOPROLOL 100 MG TAB PO SCH ×2 (08:17→21:04)
[2019-01-05] MEDS: LISINOPRIL 20 MG TAB PO SCH (08:18)
[2019-01-05] MEDS: POVIDONE IODINE 10% 28.4 GM OINT TOP SCH ×2 (08:18→21:05)
[2019-01-05] MEDS: EUCERIN 113 GM CR TOP SCH (08:19)
[2019-01-05] MEDS: DAKINS 0.0125%(1/40) 473 ML SOLUTION TP SCH ×2 (08:20→21:00)
--- NOTE | 2019-01-05 10:34 | CONS ---
Assessment/Plan Assessment/Plan Problems: (1) Type 2 diabetes mellitus with diabetic chronic kidney disease Status: Chronic Comment: Prior to d/c noticed yesterday afternoon BG was higher. Increased lantus from 4 to 5 units last night. However, did not get lantus b/c primary team d/c'ed it in favor of glipizide 2 mg bid leading up to d/c. Uncertain what kind of response pt. will have to glipizide. Monitor glucose to see. Qualifiers: Diabetes mellitus [facility] insulin use: with long line teamster use Chronic kidney disease stage: on chronic dialysis Qualified Codes: E11.22 - Type 2 diabetes mellitus with diabetic chronic kidney disease; N18.6 - End stage renal disease; Z79.4 - long term care social worker (current) use of insulin; Z99.2 - Dependence on renal dialysis Consultation Date/Type/Reason Admit Date/Time Dec 18, 2018 at 04:02 Initial Consult Date 12/22/18 Type of Consult Endocrinology Reason for Consultation T2DM management Requesting Provider: ADRIANA JUSTICE Date/Time of Note DATE: 01/05/19 TIME: 10:32 24 HR Interval Summary Subjective hx not possible: pt non-verbal Exam/Review of Systems Exam Vitals VS - Last 72 Hours, by Label Date Temp Pulse Resp B/P (MAP) Pulse Ox O2 O2 Flow FiO2 Time Delivery Rate 01/05/19 98.3 80 17 116/58 100 Room Air 08:08 (77) 01/05/19 98.2 67 18 127/60 98 02:50 (82) 01/05/19 85 00:00 01/05/19 98.5 91 18 118/58 99 Room Air 00:00 (78) 01/04/19 95 20:00 01/04/19 98.8 91 18 111/59 96 Room Air 19:52 (76) 01/04/19 3.0 17:28 01/04/19 89 16:00 01/04/19 97.5 91 17 107/55 93 15:10 (72) 01/04/19 84 12:00 01/04/19 98.0 87 17 118/56 100 11:33 (76) 01/04/19 98.8 78 18 112/54 98 08:02 (73) 01/04/19 77 08:00 01/04/19 Nasal 3.0 07:54 Cannula 01/04/19 98.7 86 20 98/53 (68) 100 04:00 01/04/19 82 04:00 01/04/19 3.0 02:45 01/04/19 87 00:00 01/04/19 98.6 86 20 104/54 100 00:00 (71) 01/03/19 Nasal 3.0 21:00 Cannula 01/03/19 88 20:00 01/03/19 98.3 87 18 113/57 100 20:00 (75) 01/03/19 3.0 19:00 01/03/19 79 16:09 01/03/19 86 15:50 01/03/19 97.7 89 18 127/75 97 15:50 (92) 01/03/19 79 15:30 01/03/19 78 15:15 01/03/19 81 15:00 01/03/19 79 14:45 01/03/19 80 14:30 01/03/19 79 14:15 01/03/19 80 14:00 01/03/19 80 13:45 01/03/19 81 13:30 01/03/19 82 13:15 01/03/19 83 13:00 01/03/19 84 12:50 01/03/19 84 110/57 Nasal 3.0 12:30 (74) Cannula 01/03/19 97.9 89 18 99/58 (72) 96 12:13 01/03/19 82 12:03 01/03/19 87 08:26 01/03/19 3.0 07:59 01/03/19 97.8 50 16 112/63 90 07:23 (79) 01/03/19 78 04:00 01/03/19 97.8 78 20 132/56 97 Room Air 04:00 (81) 01/03/19 75 00:00 01/02/19 98.0 75 18 116/59 97 Room Air 23:25 (78) 01/02/19 97.9 87 20 146/72 94 Room Air 20:00 (96) High Flow 01/02/19 89 20:00 01/02/19 89 16:19 01/02/19 98.1 89 20 138/61 100 Room Air 15:04 (86) 01/02/19 98.2 84 15 132/77 98 Room Air 14:30 (95) 01/02/19 86 16 138/74 99 Room Air 14:25 (95) 01/02/19 86 16 141/74 99 Room Air 14:20 (96) 01/02/19 86 18 139/65 100 Room Air 14:15 (89) 01/02/19 84 15 132/70 98 Room Air 14:10 (90) 01/02/19 78 20 138/68 100 Nasal 2.0 14:05 (91) Cannula 01/02/19 80 19 131/71 99 Nasal 2.0 14:00 (91) Cannula 01/02/19 80 20 138/70 99 Nasal 2.0 13:55 (92) Cannula 01/02/19 98.0 80 20 145/70 99 Nasal 2.0 13:50 (95) Cannula 01/02/19 74 12:08 01/02/19 97.7 78 20 147/76 100 Room Air 11:39 (99) Vital Signs Date Temp Pulse Resp B/P (MAP) Pulse Ox O2 O2 Flow FiO2 Time Delivery Rate 01/05/19 98.3 80 17 116/58 100 Room Air 08:08 (77) 01/04/19 3.0 17:28 Intake and Output 01/04/19 01/04/19 01/05/19 1515:00 23:00 07:00 IntakeIntake Total 300 ml 240 ml 100 ml OutputOutput Total 0 ml BalanceBalance 300 ml 240 ml 100 ml Constitutional: non-verbal, frail; No alert, No oriented Respiratory: clear to auscultation, normal air movement Cardiovascular: regular rate and rhythm; No edema, No murmurs/extra sounds, No rub Gastrointestinal: soft, nl liver, spleen, non-tender, bowel sounds; No mass, No rebound or guarding Musculoskeletal: nl extremities to inspection Extremities: No normal pulses, No cyanosis, No clubbing, No edema Neurological: lethargic Additional Comments Bedside Glucose - 72 Hours Test 01/02/19 11:48 01/02/19 17:15 01/02/19 20:47 01/03/19 02:28 Bedside 194 175 191 176 Glucose mg/dL (70-220) mg/dL (70-220) mg/dL (70-220) mg/dL (70-220) Test 01/03/19 07:30 01/03/19 11:33 01/03/19 17:17 01/03/19 20:42 Bedside 126 151 81 177 Glucose mg/dL (70-220) mg/dL (70-220) mg/dL (70-220) mg/dL (70-220) Test 01/04/19 06:41 01/04/19 07:42 01/04/19 11:50 01/04/19 17:10 Bedside 145 143 213 209 Glucose mg/dL (70-220) mg/dL (70-220) mg/dL (70-220) mg/dL (70-220) Test 01/04/19 21:27 01/05/19 08:05 Bedside 171 121 Glucose mg/dL (70-220) mg/dL (70-220) Results Result Diagram: 01/03/1953001/03/19530 Results 24hrs Laboratory Tests Test 01/04/19 11:50 01/04/19 17:10 01/04/19 21:27 01/05/19 08:05 Bedside Glucose 213 209 171 121 Medications Medication Current Medications Vancomycin HCl (Vanco Iv Per Pharmacy) VANCOMYCIN PER PHARMACY PER PROTOCOL XX ; Start 12/18/18 at 09:30 Hydralazine HCl (Apresoline) 20 mg Q4 PRN IV HIGH BLOOD Last administered on 12/29/18at 15:52; Admin Dose 20 MG; Start 12/18/18 at 09:30 Acetaminophen (Tylenol Tab) 650 mg Q4H PRN PO MILD PAIN(1-3)OR ELEVATED TEMP; Start 12/18/18 at 09:30 Acetaminophen/ Hydrocodone Bitart ([place] (5/325)) 1 tab Q4H PRN PO MODERATE PAIN LEVEL 4-6 Last administered on 12/22/18at 00:00; Admin Dose 1 TAB; Start 12/18/18 at 09:30 Insulin Aspart (Novolog Insulin Pen) NOVOLOG *MILD* ALGORITHM WITH MEALS BEDTIME SC Last administered on 01/04/19at 17:16; Admin Dose 2 UNIT; Start 12/18/18 at 12:00 Aspirin (Halfprin) 81 mg DAILY PO Last administered on 01/05/19at 08:16; Admin Dose 81 MG; Start 12/18/18 at 09:30 Atorvastatin Calcium (Lipitor) 80 mg QHS PO Last administered on 01/04/19 21:29; Admin Dose 80 MG; Start 12/18/18 at 21:00 Baclofen (Lioresal) 10 mg TID PO Last administered on 01/05/19 08:16; Admin Dose 10 MG; Start 12/18/18 at 13:00 Clopidogrel Bisulfate (plaVIX) 75 mg DAILY PO Last administered on 01/05/19 08:16; Admin Dose 75 MG; Start 12/18/18 at 09:30 Multivit/Ca Carb/ B Cmplx/FA/Prenat (Amarilis-Christina) 1 tab DAILY PO Last administered on 01/05/19 08:16; Admin Dose 1 TAB; Start 12/18/18 at 09:30 Mirtazapine (Remeron) 15 mg HS PO Last administered on 01/04/19 21:29; Admin Dose 15 MG; Start 12/18/18 at 21:00 Paroxetine HCl (Paxil) 10 mg DAILY PO Last administered on 01/05/19 08:16; Admin Dose 10 MG; Start 12/18/18 at 09:30 Zinc Sulfate (Zinc Sulfate) 220 mg DAILY PO Last administered on 01/05/19 08:16; Admin Dose 220 MG; Start 12/18/18 at 09:30 Sevelamer Carbonate (Renvela) 800 mg WITH MEALS PO Last administered on 01/05/19 08:03; Admin Dose 800 MG; Start 12/18/18 at 11:30 Diagnostic Test (Pha) (Accu-Chek) 1 ea 02 XX Last administered on 01/04/19 02:00; Admin Dose 1 EA; Start 12/19/18 at 02:00 Miscellaneous Information 1 ea NOTE XX ; Start 12/18/18 at 13:00 Glucose (Glutose) 15 gm Q15M PRN PO DECREASED GLUCOSE Last administered on 12/19/18 22:39; Admin Dose 15 GM; Start 12/18/18 at 13:00 Glucose (Glutose) 22.5 gm Q15M PRN PO DECREASED GLUCOSE Last administered on 12/19/18 23:35; Admin Dose 22.5 GM; Start 12/18/18 at 13:00 Dextrose (D50w Syringe) 25 ml Q15M PRN IV DECREASED GLUCOSE; Start 12/18/18 at 13:00 Dextrose (D50w Syringe) 50 ml Q15M PRN IV DECREASED GLUCOSE Last administered on 12/22/18 07:09; Admin Dose 50 ML; Start 12/18/18 at 13:00 Glucagon (Glucagen) 1 mg Q15M PRN IM DECREASED GLUCOSE; Start 12/18/18 at 13:00 Glucose (Glutose) 15 gm Q15M PRN BUCCAL DECREASED GLUCOSE; Start 12/18/18 at 13:00 Epoetin Josias-epbx (Retacrit (Esrd)) 8,000 unit MoWeFr@1700 SC Last administered on 01/03/19 17:22; Admin Dose 8,000 UNIT; Start 12/18/18 at 17:00 Levofloxacin (Levaquin) 500 mg Q48H PO Last administered on 01/05/19 08:03; Admin Dose 500 MG; Start 12/20/18 at 08:00 Povidone Iodine (Povidone-Iodine) 1 applic BID TOP Last administered on 01/05/19 08:18; Admin Dose 1 APPLIC; Start 12/18/18 at 21:00 Sodium Hypochlorite (Dakins Diluted (1/40)) 1 applic BID TP Last administered on 01/04/19 21:34; Admin Dose 1 APPLIC; Start 12/18/18 at 21:00 Multi-Ingredient Ointment (Eucerin Cream) 1 applic DAILY TOP Last administered on 01/05/19 08:19; Admin Dose 1 APPLIC; Start 12/19/18 at 10:28 Ondansetron HCl (Zofran Inj) 4 mg Q6H PRN IV NAUSEA AND/OR VOMITING Last administered on 12/23/18 05:05; Admin Dose 4 MG; Start 12/21/18 at 13:30 Linagliptin (Tradjenta) 5 mg DAILY PO Last administered on 01/05/19 08:17; Admin Dose 5 MG; Start 12/22/18 at 14:30 Bromocriptine Mesylate (Parlodel) 2.5 mg QHS PO Last administered on 01/04/19 21:28; Admin Dose 2.5 MG; Start 12/22/18 at 21:00 Diagnostic Test (Pha) (Accu-Chek) 1 ea AC MEALS XX Last administered on 01/05/19 08:06; Admin Dose 1 EA; Start 12/22/18 at 17:30 Vancomycin HCl 250 ml @ 125 mls/hr Q96H IVPB Last administered on 01/04/19at 12:10; Admin Dose 125 MLS/HR; Start 12/23/18 at 12:00 Metoprolol Tartrate (Lopressor) 100 mg BID PO Last administered on 01/05/19 08:17; Admin Dose 100 MG; Start 12/26/18 at 21:00 Morphine Sulfate (morphine) 2 mg Q4H PRN IV SEVERE PAIN LEVEL 7-10 Last administered on 12/30/18at 01:45; Admin Dose 2 MG; Start 12/29/18 at 19:00 Famotidine (Pepcid) 20 mg DAILY PO Last administered on 01/05/19 08:16; Admin Dose 20 MG; Start 12/31/18 at 09:00 Cilostazol (Pletal) 50 mg BID PO Last administered on 01/04/19at 21:29; Admin Dose 50 MG; Start 12/30/18 at 21:00 Lisinopril (Zestril) 20 mg DAILY PO Last administered on 01/05/19at 08:18; Admin Dose 20 MG; Start 01/03/19 at 09:00 Glimepiride (Amaryl) 2 mg BID PO ; Start 01/04/19 at 23:30; Status Hold Glipizide (Glucotrol) 5 mg AC BREAKFAST DINNER PO Last administered on 01/05/19 08:02; Admin Dose 5 MG; Start 01/05/19 at 07:00; Status Future Hold Insulin Aspart (Novolog Insulin Pen) 2 unit WITH MEALS SC Last administered on 01/05/19at 08:10; Admin Dose 2 UNIT; Start 01/05/19 at 07:35; Status Future Hold SUMAN ART MD Jan 05, 2019 10:34
--- NOTE | 2019-01-05 11:02 | PN ---
Date/Time of Note Date/Time of Note DATE: 01/05/19 TIME: 11:00 Assessment/Plan VTE Prophylaxis Risk score (from Nsg)>0 risk: 6 SCD applied (from Nsg): No Lines/Catheters IV Catheter Type (from Nrsg): Saline Lock Urinary Cath still in place: No Assessment/Plan Assessment/Plan Hyperkalemia - HD today -Level of consciousness, CT of the brain and MRI of the head are negative for acute stroke. Dr. Alfaro is following in neurology consultation. -Right foot ulcer with cellulitis, right second toe ulcer with osteomyelitis and bone exposure. S/p right second toe amputation by Dr.Dr. Ford, podiatry. Continue abx per ID. Dr. Giles is following in infection disease consultation. -Hemodialysis dependent end-stage renal disease. Dr. Agustin is following in nephrology consultation. -Diabetes mellitus type 2. Continue Lantus and NovoLog. -Hyperlipidemia, continue statin. -History of stroke, continue Plavix. Further recommendations based on clinical course. Plan of care discussed with Dr. Perez. Result Diagram: 01/03/1953001/03/19530 Results 24hrs Laboratory Tests Test 01/04/19 11:50 01/04/19 17:10 01/04/19 21:27 01/05/19 08:05 Bedside Glucose 213 209 171 121 Subjective 24 Hr Interval Summary Free Text/Dictation 01/04/19- Entry requested to keep patient in hospital [facility] as her house is under repair.no events reported last night Exam/Review of Systems Exam Vitals Vital Signs Date Temp Pulse Resp B/P (MAP) Pulse Ox O2 O2 Flow FiO2 Time Delivery Rate 01/05/19 98.3 80 17 116/58 100 Room Air 08:08 (77) 01/04/19 3.0 17:28 Intake and Output 01/04/19 01/04/19 01/05/19 1515:00 23:00 07:00 IntakeIntake Total 300 ml 240 ml 100 ml OutputOutput Total 0 ml BalanceBalance 300 ml 240 ml 100 ml Results Results 24hrs Laboratory Tests Test 01/04/19 11:50 01/04/19 17:10 01/04/19 21:27 01/05/19 08:05 Bedside Glucose 213 209 171 121 Medications Medication Current Medications Vancomycin HCl (Vanco Iv Per Pharmacy) VANCOMYCIN PER PHARMACY PER PROTOCOL XX ; Start 12/18/18 at 09:30 Hydralazine HCl (Apresoline) 20 mg Q4 PRN IV HIGH BLOOD Last administered on 15:52; Admin Dose 20 MG; Start 12/18/18 at 09:30 Acetaminophen (Tylenol Tab) 650 mg Q4H PRN PO MILD PAIN(1-3)OR ELEVATED TEMP; Start 12/18/18 at 09:30 Acetaminophen/ Hydrocodone Bitart ([place] (5/325)) 1 tab Q4H PRN PO MODERATE PAIN LEVEL 4-6 Last administered on 12/22/18 00:00; Admin Dose 1 TAB; Start 12/18/18 at 09:30 Insulin Aspart (Novolog Insulin Pen) NOVOLOG *MILD* ALGORITHM WITH MEALS BEDTIME SC Last administered on 01/04/19 17:16; Admin Dose 2 UNIT; Start 12/18/18 at 12:00 Aspirin (Halfprin) 81 mg DAILY PO Last administered on 01/05/19 08:16; Admin Dose 81 MG; Start 12/18/18 at 09:30 Atorvastatin Calcium (Lipitor) 80 mg QHS PO Last administered on 01/04/19 21:29; Admin Dose 80 MG; Start 12/18/18 at 21:00 Baclofen (Lioresal) 10 mg TID PO Last administered on 01/05/19 08:16; Admin Dose 10 MG; Start 12/18/18 at 13:00 Clopidogrel Bisulfate (plaVIX) 75 mg DAILY PO Last administered on 01/05/19 08:16; Admin Dose 75 MG; Start 12/18/18 at 09:30 Multivit/Ca Carb/ B Cmplx/FA/Prenat (Amarilis-Christina) 1 tab DAILY PO Last administered on 01/05/19 08:16; Admin Dose 1 TAB; Start 12/18/18 at 09:30 Mirtazapine (Remeron) 15 mg HS PO Last administered on 01/04/19 21:29; Admin Dose 15 MG; Start 12/18/18 at 21:00 Paroxetine HCl (Paxil) 10 mg DAILY PO Last administered on 01/05/19 08:16; Admin Dose 10 MG; Start 12/18/18 at 09:30 Zinc Sulfate (Zinc Sulfate) 220 mg DAILY PO Last administered on 01/05/19 08:16; Admin Dose 220 MG; Start 12/18/18 at 09:30 Sevelamer Carbonate (Renvela) 800 mg WITH MEALS PO Last administered on 01/05/19 08:03; Admin Dose 800 MG; Start 12/18/18 at 11:30 Diagnostic Test (Pha) (Accu-Chek) 1 ea 02 XX Last administered on 01/04/19at 02:00; Admin Dose 1 EA; Start 12/19/18 at 02:00 Miscellaneous Information 1 ea NOTE XX ; Start 12/18/18 at 13:00 Glucose (Glutose) 15 gm Q15M PRN PO DECREASED GLUCOSE Last administered on 12/19/18 22:39; Admin Dose 15 GM; Start 12/18/18 at 13:00 Glucose (Glutose) 22.5 gm Q15M PRN PO DECREASED GLUCOSE Last administered on 12/19/18at 23:35; Admin Dose 22.5 GM; Start 12/18/18 at 13:00 Dextrose (D50w Syringe) 25 ml Q15M PRN IV DECREASED GLUCOSE; Start 12/18/18 at 13:00 Dextrose (D50w Syringe) 50 ml Q15M PRN IV DECREASED GLUCOSE Last administered on 12/22/18at 07:09; Admin Dose 50 ML; Start 12/18/18 at 13:00 Glucagon (Glucagen) 1 mg Q15M PRN IM DECREASED GLUCOSE; Start 12/18/18 at 13:00 Glucose (Glutose) 15 gm Q15M PRN BUCCAL DECREASED GLUCOSE; Start 12/18/18 at 13:00 Epoetin Josias-epbx (Retacrit (Esrd)) 8,000 unit MoWeFr@1700 SC Last administered on 01/03/19 17:22; Admin Dose 8,000 UNIT; Start 12/18/18 at 17:00 Levofloxacin (Levaquin) 500 mg Q48H PO Last administered on 01/05/19 08:03; Admin Dose 500 MG; Start 12/20/18 at 08:00 Povidone Iodine (Povidone-Iodine) 1 applic BID TOP Last administered on 01/05/19 08:18; Admin Dose 1 APPLIC; Start 12/18/18 at 21:00 Sodium Hypochlorite (Dakins Diluted (1/40)) 1 applic BID TP Last administered on 01/04/19 21:34; Admin Dose 1 APPLIC; Start 12/18/18 at 21:00 Multi-Ingredient Ointment (Eucerin Cream) 1 applic DAILY TOP Last administered on 01/05/19 08:19; Admin Dose 1 APPLIC; Start 12/19/18 at 10:28 Ondansetron HCl (Zofran Inj) 4 mg Q6H PRN IV NAUSEA AND/OR VOMITING Last administered on 12/23/18 05:05; Admin Dose 4 MG; Start 12/21/18 at 13:30 Linagliptin (Tradjenta) 5 mg DAILY PO Last administered on 01/05/19 08:17; Admin Dose 5 MG; Start 12/22/18 at 14:30 Bromocriptine Mesylate (Parlodel) 2.5 mg QHS PO Last administered on 01/04/19 21:28; Admin Dose 2.5 MG; Start 12/22/18 at 21:00 Diagnostic Test (Pha) (Accu-Chek) 1 ea AC MEALS XX Last administered on 01/05/19 08:06; Admin Dose 1 EA; Start 12/22/18 at 17:30 Vancomycin HCl 250 ml @ 125 mls/hr Q96H IVPB Last administered on 01/04/19 12:10; Admin Dose 125 MLS/HR; Start 12/23/18 at 12:00 Metoprolol Tartrate (Lopressor) 100 mg BID PO Last administered on 01/05/19 08:17; Admin Dose 100 MG; Start 12/26/18 at 21:00 Morphine Sulfate (morphine) 2 mg Q4H PRN IV SEVERE PAIN LEVEL 7-10 Last admin istered on 12/30/18 01:45; Admin Dose 2 MG; Start 12/29/18 at 19:00 Famotidine (Pepcid) 20 mg DAILY PO Last administered on 01/05/19 08:16; Admin Dose 20 MG; Start 12/31/18 at 09:00 Cilostazol (Pletal) 50 mg BID PO Last administered on 01/04/19 21:29; Admin Dose 50 MG; Start 12/30/18 at 21:00 Lisinopril (Zestril) 20 mg DAILY PO Last administered on 01/05/19at 08:18; Admin Dose 20 MG; Start 01/03/19 at 09:00 Glimepiride (Amaryl) 2 mg BID PO ; Start 01/04/19 at 23:30; Status Hold Glipizide (Glucotrol) 5 mg AC BREAKFAST DINNER PO Last administered on 01/05/19at 08:02; Admin Dose 5 MG; Start 01/05/19 at 07:00; Status Future Hold Insulin Aspart (Novolog Insulin Pen) 2 unit WITH MEALS SC Last administered on 01/05/19at 08:10; Admin Dose 2 UNIT; Start 01/05/19 at 07:35; Status Future Hold ADRIANA JUSTICE Jan 05, 2019 11:02
--- NOTE | 2019-01-05 11:03 | PN ---
Date/Time of Note Date/Time of Note DATE: 01/05/19 TIME: 11:03 Assessment/Plan VTE Prophylaxis Risk score (from Ns)>0 risk: 6 SCD applied (from Nsg): No Lines/Catheters IV Catheter Type (from Nrs): Saline Lock Urinary Cath still in place: No Assessment/Plan Assessment/Plan -Level of consciousness, CT of the brain and MRI of the head are negative for acute stroke. Dr. Alfaro is following in neurology consultation. -Right foot ulcer with cellulitis, right second toe ulcer with osteomyelitis and bone exposure. S/p right second toe amputation by Dr.Dr. Ford, podiatry. Continue abx per ID. Dr. Giles is following in infection disease consultation. -Hemodialysis dependent end-stage renal disease. Dr. Agustin is following in nephrology consultation. -Diabetes mellitus type 2. Continue Lantus and NovoLog. -Hyperlipidemia, continue statin. -History of stroke, continue Plavix. Further recommendations based on clinical course. Plan of care discussed with Dr. Perez. Result Diagram: 01/03/1953001/03/19530 Results 24hrs Laboratory Tests Test 01/04/19 11:50 01/04/19 17:10 01/04/19 21:27 01/05/19 08:05 Bedside Glucose 213 209 171 121 Exam/Review of Systems Exam Vitals Vital Signs Date Temp Pulse Resp B/P (MAP) Pulse Ox O2 O2 Flow FiO2 Time Delivery Rate 01/05/19 98.3 80 17 116/58 100 Room Air 08:08 (77) 01/04/19 3.0 17:28 Intake and Output 01/04/19 01/04/19 01/05/19 1515:00 23:00 07:00 IntakeIntake Total 300 ml 240 ml 100 ml OutputOutput Total 0 ml BalanceBalance 300 ml 240 ml 100 ml Results Results 24hrs Laboratory Tests Test 01/04/19 11:50 01/04/19 17:10 01/04/19 21:27 01/05/19 08:05 Bedside Glucose 213 209 171 121 Medications Medication Current Medications Vancomycin HCl (Vanco Iv Per Pharmacy) VANCOMYCIN PER PHARMACY PER PROTOCOL XX ; Start 12/18/18 at 09:30 Hydralazine HCl (Apresoline) 20 mg Q4 PRN IV HIGH BLOOD Last administered on 12/29/18 15:52; Admin Dose 20 MG; Start 12/18/18 at 09:30 Acetaminophen (Tylenol Tab) 650 mg Q4H PRN PO MILD PAIN(1-3)OR ELEVATED TEMP; Start 12/18/18 at 09:30 Acetaminophen/ Hydrocodone Bitart ([place] (5/325)) 1 tab Q4H PRN PO MODERATE PAIN LEVEL 4-6 Last administered on 12/22/18 00:00; Admin Dose 1 TAB; Start 12/18/18 at 09:30 Insulin Aspart (Novolog Insulin Pen) NOVOLOG *MILD* ALGORITHM WITH MEALS BEDTIME SC Last administered on 01/04/19 17:16; Admin Dose 2 UNIT; Start 12/18/18 at 12:00 Aspirin (Halfprin) 81 mg DAILY PO Last administered on 01/05/19 08:16; Admin Dose 81 MG; Start 12/18/18 at 09:30 Atorvastatin Calcium (Lipitor) 80 mg QHS PO Last administered on 01/04/19 21:29; Admin Dose 80 MG; Start 12/18/18 at 21:00 Baclofen (Lioresal) 10 mg TID PO Last administered on 01/05/19 08:16; Admin Dose 10 MG; Start 12/18/18 at 13:00 Clopidogrel Bisulfate (plaVIX) 75 mg DAILY PO Last administered on 01/05/19 08:16; Admin Dose 75 MG; Start 12/18/18 at 09:30 Multivit/Ca Carb/ B Cmplx/FA/Prenat (Amarilis-Christina) 1 tab DAILY PO Last admini stered on 01/05/19 08:16; Admin Dose 1 TAB; Start 12/18/18 at 09:30 Mirtazapine (Remeron) 15 mg HS PO Last administered on 01/04/19 21:29; Admin Dose 15 MG; Start 12/18/18 at 21:00 Paroxetine HCl (Paxil) 10 mg DAILY PO Last administered on 01/05/19 08:16; Admin Dose 10 MG; Start 12/18/18 at 09:30 Zinc Sulfate (Zinc Sulfate) 220 mg DAILY PO Last administered on 01/05/19 08:16; Admin Dose 220 MG; Start 12/18/18 at 09:30 Sevelamer Carbonate (Renvela) 800 mg WITH MEALS PO Last administered on 08:03; Admin Dose 800 MG; Start 12/18/18 at 11:30 Diagnostic Test (Pha) (Accu-Chek) 1 ea 02 XX Last administered on 01/04/19at 02:00; Admin Dose 1 EA; Start 12/19/18 at 02:00 Miscellaneous Information 1 ea NOTE XX ; Start 12/18/18 at 13:00 Glucose (Glutose) 15 gm Q15M PRN PO DECREASED GLUCOSE Last administered on 12/19/18 22:39; Admin Dose 15 GM; Start 12/18/18 at 13:00 Glucose (Glutose) 22.5 gm Q15M PRN PO DECREASED GLUCOSE Last administered on 12/19/18 23:35; Admin Dose 22.5 GM; Start 12/18/18 at 13:00 Dextrose (D50w Syringe) 25 ml Q15M PRN IV DECREASED GLUCOSE; Start 12/18/18 at 13:00 Dextrose (D50w Syringe) 50 ml Q15M PRN IV DECREASED GLUCOSE Last administered on 12/22/18at 07:09; Admin Dose 50 ML; Start 12/18/18 at 13:00 Glucagon (Glucagen) 1 mg Q15M PRN IM DECREASED GLUCOSE; Start 12/18/18 at 13:00 Glucose (Glutose) 15 gm Q15M PRN BUCCAL DECREASED GLUCOSE; Start 12/18/18 at 13: 00 Epoetin Josias-epbx (Retacrit (Esrd)) 8,000 unit MoWeFr@1700 SC Last administered on 01/03/19at 17:22; Admin Dose 8,000 UNIT; Start 12/18/18 at 17:00 Levofloxacin (Levaquin) 500 mg Q48H PO Last administered on 01/05/19 08:03; Admin Dose 500 MG; Start 12/20/18 at 08:00 Povidone Iodine (Povidone-Iodine) 1 applic BID TOP Last administered on 01/05/19 08:18; Admin Dose 1 APPLIC; Start 12/18/18 at 21:00 Sodium Hypochlorite (Dakins Diluted ()) 1 applic BID TP Last administered on 01/04/19at 21:34; Admin Dose 1 APPLIC; Start 12/18/18 at 21:00 Multi-Ingredient Ointment (Eucerin Cream) 1 applic DAILY TOP Last administered on 01/05/19 08:19; Admin Dose 1 APPLIC; Start 12/19/18 at 10:28 Ondansetron HCl (Zofran Inj) 4 mg Q6H PRN IV NAUSEA AND/OR VOMITING Last administered on 12/23/18 05:05; Admin Dose 4 MG; Start 12/21/18 at 13:30 Linagliptin (Tradjenta) 5 mg DAILY PO Last administered on 01/05/19 08:17; Admin Dose 5 MG; Start 12/22/18 at 14:30 Bromocriptine Mesylate (Parlodel) 2.5 mg QHS PO Last administered on 01/04/19 21:28; Admin Dose 2.5 MG; Start 12/22/18 at 21:00 Diagnostic Test (Pha) (Accu-Chek) 1 ea AC MEALS XX Last administered on 01/05/19 08:06; Admin Dose 1 EA; Start 12/22/18 at 17:30 Vancomycin HCl 250 ml @ 125 mls/hr Q96H IVPB Last administered on 01/04/19 12:10; Admin Dose 125 MLS/HR; Start 12/23/18 at 12:00 Metoprolol Tartrate (Lopressor) 100 mg BID PO Last administered on 01/05/19 08:17; Admin Dose 100 MG; Start 12/26/18 at 21:00 Morphine Sulfate (morphine) 2 mg Q4H PRN IV SEVERE PAIN LEVEL 7-10 Last administered on 12/30/18 01:45; Admin Dose 2 MG; Start 12/29/18 at 19:00 Famotidine (Pepcid) 20 mg DAILY PO Last administered on 01/05/19 08:16; Admin Dose 20 MG; Start 12/31/18 at 09:00 Cilostazol (Pletal) 50 mg BID PO Last administered on 01/04/19 21:29; Admin Dose 50 MG; Start 12/30/18 at 21:00 Lisinopril (Zestril) 20 mg DAILY PO Last administered on 01/05/19 08:18; Admin Dose 20 MG; Start 01/03/19 at 09:00 Glimepiride (Amaryl) 2 mg BID PO ; Start 01/04/19 at 23:30; Status Hold Glipizide (Glucotrol) 5 mg AC BREAKFAST DINNER PO Last administered on 01/05/19at 08:02; Admin Dose 5 MG; Start 01/05/19 at 07:00; Status Future Hold Insulin Aspart (Novolog Insulin Pen) 2 unit WITH MEALS SC Last administered on 01/05/19at 08:10; Admin Dose 2 UNIT; Start 01/05/19 at 07:35; Status Future Hold [facility] Jan 05, 2019 11:03
--- NOTE | 2019-01-05 11:14 | CONS ---
Consult Date/Type/Reason Admit Date/Time Dec 18, 2018 at 04:02 Initial Consult Date 12/22/18 Requesting Provider: ADRIANA JUSTICE Date/Time of Note DATE: 01/05/19 TIME: 11:10 Subjective The patient on hd last on sunday patient nonverbal. dc planning underway. no new labs. OBJECTIVE: HEENT: Head is normocephalic. NECK: Supple. HEART: Regular rate. LUNGS: Show breath sounds at the base. ABDOMEN: Soft, nontender to palpation without rebound or guarding. EXTREMITIES: Negative for clubbing, cyanosis. Noted wound with dressing clean, dry, and intact. DERMATOLOGIC: No rashes. MUSCULOSKELETAL: No joint effusion. NEUROLOGIC: No change. Objective Vitals Vital Signs Date Temp Pulse Resp B/P (MAP) Pulse Ox O2 O2 Flow FiO2 Time Delivery Rate 01/05/19 98.3 80 17 116/58 100 Room Air 08:08 (77) 01/04/19 3.0 17:28 Intake and Output 01/04/19 01/04/19 01/05/19 1515:00 23:00 07:00 IntakeIntake Total 300 ml 240 ml 100 ml OutputOutput Total 0 ml BalanceBalance 300 ml 240 ml 100 ml Results/Medications Result Diagram: 01/03/19 0531 01/03/19 0531 Results 24 hrs Laboratory Tests Test 01/04/19 11:50 01/04/19 17:10 01/04/19 21:27 01/05/19 08:05 Bedside Glucose 213 209 171 121 Home Meds Reported Medications Folic Acid/Vitamin B Comp W-C (Renal Multivitamin Tablet) 0.8 Mg Tablet, 1 TAB PO DAILY for 90 Days, #90 12/18/18 Glimepiride* (Glimepiride*) 2 Mg Tablet, 2 MG PO BID for 90 Days, #180 12/18/18 Clopidogrel Bisulfate (Clopidogrel) 75 Mg Tablet, 75 MG PO DAILY for 90 Days, #90 12/18/18 Levofloxacin* (Levofloxacin*) 500 Mg Tablet, 500 MG PO DAILY 12/18/18 Amlodipine Besylate* (Norvasc*) 10 Mg Tablet, 10 MG PO DAILY, TAB 07/12/18 Sevelamer Hcl* (Renagel*) 800 Mg Tablet, 800 MG PO WITH MEALS, TAB 07/12/18 Zinc Sulfate* (Zinc Sulfate*) 220 Mg Cap, 220 MG PO DAILY, CAP 07/12/18 Glipizide* (Glipizide*) 5 Mg Tablet, 5 MG PO AC BREAKFAST DINNER, TAB 07/12/18 Folic Acid/Vitamin B Comp W-C (Nephrocaps Capsule) 1 Mg Capsule, 1 MG PO DAILY, CAP 07/12/18 Atorvastatin* (Atorvastatin*) 80 Mg Tablet, 80 MG PO QHS, #30 TAB 07/12/18 Baclofen* (Baclofen*) 10 Mg Tablet, 10 MG PO TID, TAB 07/12/18 Mirtazapine* (Mirtazapine*) 15 Mg Tablet, 15 MG PO HS, TAB 07/12/18 Aspirin (Low Dose Aspirin) 81 Mg Tablet.dr, 81 MG PO DAILY, #30 TAB 07/12/18 Paroxetine Hcl* (Paxil*) 10 Mg Tablet, 10 MG PO DAILY, TAB 07/12/18 Medications Current Medications Vancomycin HCl (Vanco Iv Per Pharmacy) VANCOMYCIN PER PHARMACY PER PROTOCOL XX ; Start 12/18/18 at 09:30 Hydralazine HCl (Apresoline) 20 mg Q4 PRN IV HIGH BLOOD Last administered on 12/29/18at 15:52; Admin Dose 20 MG; Start 12/18/18 at 09:30 Acetaminophen (Tylenol Tab) 650 mg Q4H PRN PO MILD PAIN(1-3)OR ELEVATED TEMP; Start 12/18/18 at 09:30 Acetaminophen/ Hydrocodone Bitart ([place] (5/325)) 1 tab Q4H PRN PO MODERATE PAIN LEVEL 4-6 Last administered on 12/22/18at 00:00; Admin Dose 1 TAB; Start 12/18/18 at 09:30 Insulin Aspart (Novolog Insulin Pen) NOVOLOG *MILD* ALGORITHM WITH MEALS BEDTIME SC Last administered on 01/04/19at 17:16; Admin Dose 2 UNIT; Start 12/18/18 at 12:00 Aspirin (Halfprin) 81 mg DAILY PO Last administered on 01/05/19at 08:16; Admin Dose 81 MG; Start 12/18/18 at 09:30 Atorvastatin Calcium (Lipitor) 80 mg QHS PO Last administered on 01/04/19at 21:29; Admin Dose 80 MG; Start 12/18/18 at 21:00 Baclofen (Lioresal) 10 mg TID PO Last administered on 01/05/19 08:16; Admin Dose 10 MG; Start 12/18/18 at 13:00 Clopidogrel Bisulfate (plaVIX) 75 mg DAILY PO Last administered on 01/05/19 08:16; Admin Dose 75 MG; Start 12/18/18 at 09:30 Multivit/Ca Carb/ B Cmplx/FA/Prenat (Amarilis-Christina) 1 tab DAILY PO Last adminis tered on 01/05/19 08:16; Admin Dose 1 TAB; Start 12/18/18 at 09:30 Mirtazapine (Remeron) 15 mg HS PO Last administered on 01/04/19 21:29; Admin Dose 15 MG; Start 12/18/18 at 21:00 Paroxetine HCl (Paxil) 10 mg DAILY PO Last administered on 01/05/19 08:16; Admin Dose 10 MG; Start 12/18/18 at 09:30 Zinc Sulfate (Zinc Sulfate) 220 mg DAILY PO Last administered on 01/05/19 08:16; Admin Dose 220 MG; Start 12/18/18 at 09:30 Sevelamer Carbonate (Renvela) 800 mg WITH MEALS PO Last administered on 08:03; Admin Dose 800 MG; Start 12/18/18 at 11:30 Diagnostic Test (Pha) (Accu-Chek) 1 ea 02 XX Last administered on 01/04/19 02:00; Admin Dose 1 EA; Start 12/19/18 at 02:00 Miscellaneous Information 1 ea NOTE XX ; Start 12/18/18 at 13:00 Glucose (Glutose) 15 gm Q15M PRN PO DECREASED GLUCOSE Last administered on 12/19/18 22:39; Admin Dose 15 GM; Start 12/18/18 at 13:00 Glucose (Glutose) 22.5 gm Q15M PRN PO DECREASED GLUCOSE Last administered on 12/19/18 23:35; Admin Dose 22.5 GM; Start 12/18/18 at 13:00 Dextrose (D50w Syringe) 25 ml Q15M PRN IV DECREASED GLUCOSE; Start 12/18/18 at 13:00 Dextrose (D50w Syringe) 50 ml Q15M PRN IV DECREASED GLUCOSE Last administered on 12/22/18 07:09; Admin Dose 50 ML; Start 12/18/18 at 13:00 Glucagon (Glucagen) 1 mg Q15M PRN IM DECREASED GLUCOSE; Start 12/18/18 at 13:00 Glucose (Glutose) 15 gm Q15M PRN BUCCAL DECREASED GLUCOSE; Start 12/18/18 at 13:00 Epoetin Josias-epbx (Retacrit (Esrd)) 8,000 unit MoWeFr@1700 SC Last administered on 01/03/19 17:22; Admin Dose 8,000 UNIT; Start 12/18/18 at 17:00 Levofloxacin (Levaquin) 500 mg Q48H PO Last administered on 01/05/19 08:03; Admin Dose 500 MG; Start 12/20/18 at 08:00 Povidone Iodine (Povidone-Iodine) 1 applic BID TOP Last administered on 01/05/19 08:18; Admin Dose 1 APPLIC; Start 12/18/18 at 21:00 Sodium Hypochlorite (Dakins Diluted (40)) 1 applic BID TP Last administered on 01/04/19 21:34; Admin Dose 1 APPLIC; Start 12/18/18 at 21:00 Multi-Ingredient Ointment (Eucerin Cream) 1 applic DAILY TOP Last administered on 01/05/19 08:19; Admin Dose 1 APPLIC; Start 12/19/18 at 10:28 Ondansetron HCl (Zofran Inj) 4 mg Q6H PRN IV NAUSEA AND/OR VOMITING Last administered on 12/23/18 05:05; Admin Dose 4 MG; Start 12/21/18 at 13:30 Linagliptin (Tradjenta) 5 mg DAILY PO Last administered on 01/05/19 08:17; Admin Dose 5 MG; Start 12/22/18 at 14:30 Bromocriptine Mesylate (Parlodel) 2.5 mg QHS PO Last administered on 01/04/19 21:28; Admin Dose 2.5 MG; Start 12/22/18 at 21:00 Diagnostic Test (Pha) (Accu-Chek) 1 ea AC MEALS XX Last administered on 01/05/19 08:06; Admin Dose 1 EA; Start 12/22/18 at 17:30 Vancomycin HCl 250 ml @ 125 mls/hr Q96H IVPB Last administered on 01/04/19 12:10; Admin Dose 125 MLS/HR; Start 12/23/18 at 12:00 Metoprolol Tartrate (Lopressor) 100 mg BID PO Last administered on 01/05/19 08:17; Admin Dose 100 MG; Start 12/26/18 at 21:00 Morphine Sulfate (morphine) 2 mg Q4H PRN IV SEVERE PAIN LEVEL 7-10 Last administered on 12/30/18 01:45; Admin Dose 2 MG; Start 12/29/18 at 19:00 Famotidine (Pepcid) 20 mg DAILY PO Last administered on 01/05/19 08:16; Admin Dose 20 MG; Start 12/31/18 at 09:00 Cilostazol (Pletal) 50 mg BID PO Last administered on 01/04/19 21:29; Admin Dose 50 MG; Start 12/30/18 at 21:00 Lisinopril (Zestril) 20 mg DAILY PO Last administered on 01/05/19 08:18; Admin Dose 20 MG; Start 01/03/19 at 09:00 Glimepiride (Amaryl) 2 mg BID PO ; Start 01/04/19 at 23:30; Status Hold Glipizide (Glucotrol) 5 mg AC BREAKFAST DINNER PO Last administered on 01/05/19 08:02; Admin Dose 5 MG; Start 01/05/19 at 07:00; Status Future Hold Insulin Aspart (Novolog Insulin Pen) 2 unit WITH MEALS SC Last administered on 01/05/19 08:10; Admin Dose 2 UNIT; Start 01/05/19 at 07:35; Status Future Hold Assessment/Plan Hospital Course (Demo Recall) 1. End-stage renal disease. Plan is for hemodialysis on routine schedule.. We will dialyze for 3 hours 2k bath, calcium 2.5. - all meds dosed ok. - asses daily for hd needs 2. Anemia. Continue to monitor hemoglobin and hematocrit levels. We will give Epogen as needed. currently subtherapeutic. 3. Mineral bone disorder. Monitor calcium and phosphorus levels. 4. Diabetes. Continue current insulin regimen. 5. Diabetic foot ulcer. The patient is status post amputation. Continue to monitor. Follow up with podiatry. 6. History of cerebrovascular accident. Continue medical management. 7. Encephalopathy. No change. 8. Hypertension. Continue current blood pressure regimen. 9. Dyslipidemia. Continue statin therapy. EDMOND MARSHALL MD Jan 05, 2019 11:14
[2019-01-05] MEDS: CILOSTAZOL 100 MG TAB PO SCH ×2 (12:33→21:05)
[2019-01-05] MEDS: DEXTROSE 50% 50 ML SYRINGE IV PRN ×3 (12:51→20:57)
--- NOTE | 2019-01-05 15:24 | CONS ---
Consultation Date/Type/Reason Admit Date/Time Dec 18, 2018 at 04:02 Initial Consult Date 12/22/18 Type of Consult Cardiology Requesting Provider: ADRIANA JUSTICE Date/Time of Note DATE: 01/05/19 TIME: 15:24 24 HR Interval Summary Free Text/Dictation VS reviewed - stable Exam/Review of Systems Vital Signs Vitals Vital Signs Date Temp Pulse Resp B/P (MAP) Pulse Ox O2 O2 Flow FiO2 Time Delivery Rate 01/05/19 98.3 80 17 116/58 100 Room Air 08:08 (77) 01/04/19 3.0 17:28 Intake and Output 01/04/19 01/04/19 01/05/19 1515:00 23:00 07:00 IntakeIntake Total 300 ml 240 ml 100 ml OutputOutput Total 0 ml BalanceBalance 300 ml 240 ml 100 ml Labs Result Diagram: 01/05/19 1322 01/05/19 1322 Results 24hrs Laboratory Tests Test 01/04/19 17:10 01/04/19 21:27 01/05/19 08:05 01/05/19 12:34 Bedside Glucose 209 171 121 50 L Test 01/05/19 12:51 01/05/19 13:03 01/05/19 13:16 01/05/19 13:22 Bedside Glucose 46 *L 74 111 White Blood Count 8.7 # Red Blood Count 3.25 L Hemoglobin 8.9 L Hematocrit 28.4 L Mean Corpuscular 87.4 Volume Mean Corpuscular 27.4 L Hemoglobin Mean Corpuscular 31.3 L Hemoglobin Concent Red Cell 17.3 H Distribution Width Platelet Count 395 Mean Platelet Volume 10.1 Immature 0.200 Granulocytes % Neutrophils % 78.6 H Lymphocytes % 9.0 L Monocytes % 7.6 Eosinophils % 3.8 Basophils % 0.8 Nucleated Red Blood 0.0 Cells % Immature 0.020 Granulocytes # Neutrophils # 6.9 Lymphocytes # 0.8 Monocytes # 0.7 Eosinophils # 0.3 Basophils # 0.1 Nucleated Red Blood 0.0 Cells # Sodium Level 137 Potassium Level 4.3 Chloride Level 98 Carbon Dioxide Level 27 Anion Gap 12 Blood Urea Nitrogen 53 H Creatinine 9.54 H Est Glomerular 7 L Filtrat Rate mL/min Glucose Level 102 Calcium Level 8.8 Test 01/05/19 13:34 Bedside Glucose 110 Medications Medications Current Medications Vancomycin HCl (Vanco Iv Per Pharmacy) VANCOMYCIN PER PHARMACY PER PROTOCOL XX ; Start 12/18/18 at 09:30 Hydralazine HCl (Apresoline) 20 mg Q4 PRN IV HIGH BLOOD Last administered on 12/29/18 15:52; Admin Dose 20 MG; Start 12/18/18 at 09:30 Acetaminophen (Tylenol Tab) 650 mg Q4H PRN PO MILD PAIN(1-3)OR ELEVATED TEMP; Start 12/18/18 at 09:30 Acetaminophen/ Hydrocodone Bitart ([place] (5/325)) 1 tab Q4H PRN PO MODERATE PAIN LEVEL 4-6 Last administered on 12/22/18 00:00; Admin Dose 1 TAB; Start 12/18/18 at 09:30 Insulin Aspart (Novolog Insulin Pen) NOVOLOG *MILD* ALGORITHM WITH MEALS BEDTIM E SC Last administered on 01/04/19 17:16; Admin Dose 2 UNIT; Start 12/18/18 at 12:00 Aspirin (Halfprin) 81 mg DAILY PO Last administered on 01/05/19 08:16; Admin Dose 81 MG; Start 12/18/18 at 09:30 Atorvastatin Calcium (Lipitor) 80 mg QHS PO Last administered on 01/04/19 21:29; Admin Dose 80 MG; Start 12/18/18 at 21:00 Baclofen (Lioresal) 10 mg TID PO Last administered on 01/05/19 12:33; Admin Dose 10 MG; Start 12/18/18 at 13:00 Clopidogrel Bisulfate (plaVIX) 75 mg DAILY PO Last administered on 01/05/19 08:16; Admin Dose 75 MG; Start 12/18/18 at 09:30 Multivit/Ca Carb/ B Cmplx/FA/Prenat (Amarilis-Christina) 1 tab DAILY PO Last administered on 01/05/19 08:16; Admin Dose 1 TAB; Start 12/18/18 at 09:30 Mirtazapine (Remeron) 15 mg HS PO Last administered on 01/04/19 21:29; Admin Dose 15 MG; Start 12/18/18 at 21:00 Paroxetine HCl (Paxil) 10 mg DAILY PO Last administered on 01/05/19 08:16; Adm in Dose 10 MG; Start 12/18/18 at 09:30 Zinc Sulfate (Zinc Sulfate) 220 mg DAILY PO Last administered on 01/05/19 08:16; Admin Dose 220 MG; Start 12/18/18 at 09:30 Sevelamer Carbonate (Renvela) 800 mg WITH MEALS PO Last administered on 01/05/19 12:33; Admin Dose 800 MG; Start 12/18/18 at 11:30 Diagnostic Test (Pha) (Accu-Chek) 1 ea 02 XX Last administered on 01/04/19at 02:00; Admin Dose 1 EA; Start 12/19/18 at 02:00 Miscellaneous Information 1 ea NOTE XX ; Start 12/18/18 at 13:00 Glucose (Glutose) 15 gm Q15M PRN PO DECREASED GLUCOSE Last administered on 12/19/18 22:39; Admin Dose 15 GM; Start 12/18/18 at 13:00 Glucose (Glutose) 22.5 gm Q15M PRN PO DECREASED GLUCOSE Last administered on 12/19/18 23:35; Admin Dose 22.5 GM; Start 12/18/18 at 13:00 Dextrose (D50w Syringe) 25 ml Q15M PRN IV DECREASED GLUCOSE; Start 12/18/18 at 13:00 Dextrose (D50w Syringe) 50 ml Q15M PRN IV DECREASED GLUCOSE Last administered on 01/05/19 12:51; Admin Dose 50 ML; Start 12/18/18 at 13:00 Glucagon (Glucagen) 1 mg Q15M PRN IM DECREASED GLUCOSE Last administered on 01/05/19 12:57; Admin Dose 1 MG; Start 12/18/18 at 13:00 Glucose (Glutose) 15 gm Q15M PRN BUCCAL DECREASED GLUCOSE; Start 12/18/18 at 13:00 Epoetin Josias-epbx (Retacrit (Esrd)) 8,000 unit MoWeFr@1700 SC Last administered on 01/03/19 17:22; Admin Dose 8,000 UNIT; Start 12/18/18 at 17:00 Levofloxacin (Levaquin) 500 mg Q48H PO Last administered on 01/05/19 08:03; Admin Dose 500 MG; Start 12/20/18 at 08:00 Povidone Iodine (Povidone-Iodine) 1 applic BID TOP Last administered on 01/05/19 08:18; Admin Dose 1 APPLIC; Start 12/18/18 at 21:00 Sodium Hypochlorite (Dakins Diluted (40)) 1 applic BID TP Last administered on 01/04/19 21:34; Admin Dose 1 APPLIC; Start 12/18/18 at 21:00 Multi-Ingredient Ointment (Eucerin Cream) 1 applic DAILY TOP Last administered on 01/05/19 08:19; Admin Dose 1 APPLIC; Start 12/19/18 at 10:28 Ondansetron HCl (Zofran Inj) 4 mg Q6H PRN IV NAUSEA AND/OR VOMITING Last administered on 12/23/18 05:05; Admin Dose 4 MG; Start 12/21/18 at 13:30 Linagliptin (Tradjenta) 5 mg DAILY PO Last administered on 01/05/19 08:17; Admin Dose 5 MG; Start 12/22/18 at 14:30 Bromocriptine Mesylate (Parlodel) 2.5 mg QHS PO Last administered on 01/04/19 21:28; Admin Dose 2.5 MG; Start 12/22/18 at 21:00 Diagnostic Test (Pha) (Accu-Chek) 1 ea AC MEALS XX Last administered on 01/05/19 11:30; Admin Dose 1 EA; Start 12/22/18 at 17:30 Vancomycin HCl 250 ml @ 125 mls/hr Q96H IVPB Last administered on 01/04/19 12:10; Admin Dose 125 MLS/HR; Start 12/23/18 at 12:00 Metoprolol Tartrate (Lopressor) 100 mg BID PO Last administered on 01/05/19 08:17; Admin Dose 100 MG; Start 12/26/18 at 21:00 Morphine Sulfate (morphine) 2 mg Q4H PRN IV SEVERE PAIN LEVEL 7-10 Last administered on 12/30/18 01:45; Admin Dose 2 MG; Start 12/29/18 at 19:00 Famotidine (Pepcid) 20 mg DAILY PO Last administered on 01/05/19 08:16; Admin Dose 20 MG; Start 12/31/18 at 09:00 Cilostazol (Pletal) 50 mg BID PO Last administered on 01/05/19 12:33; Admin Dose 50 MG; Start 12/30/18 at 21:00 Lisinopril (Zestril) 20 mg DAILY PO Last administered on 01/05/19at 08:18; Admin Dose 20 MG; Start 01/03/19 at 09:00 Glimepiride (Amaryl) 2 mg BID PO ; Start 01/04/19 at 23:30; Status Hold Glipizide (Glucotrol) 5 mg AC BREAKFAST DINNER PO Last administered on 01/05/19at 08:02; Admin Dose 5 MG; Start 01/05/19 at 07:00; Status Future Hold Insulin Aspart (Novolog Insulin Pen) 2 unit WITH MEALS SC Last administered on 01/05/19at 08:10; Admin Dose 2 UNIT; Start 01/05/19 at 07:35; Status Future Hold LAUREN PARMAR MD Jan 05, 2019 15:24
--- NOTE | 2019-01-05 17:46 | CONS ---
Assessment/Plan Assessment/Plan Hospital Course (Demo Recall) ID PROGRESS NOTE CURRENT ABX: DAY # =>Vanco IV + Levaquin 24H INTERVAL SUMMARY * POD #3 -> s/p 01/02/19 2nd toe amputation * CLINICALLY STABLE -- CURRENTLY RESTING and appears comforable, VSS, NAD, no fevers * 12/20/18 CT Brain: No acute intracranial findings.Old right frontoparietal infarct, with additional old smaller infarct in the right basal ganglia and maza radiata. Background chronic microvascular ischemic disease. MICRO/OTHER * 12/18/18 BCX (-) PHYSICAL EXAMINATION: GENERAL: VSS, NAD, frail chronic debility - aphasic HEENT: AT, NC, anicteric, right eye cataract, left eye with larger pupil NECK: Supple, CHEST: Equal chest rise bilaterally, without dyspnea on observation HEART: Pulse RRR ABDOMEN: Soft : deferred EXTREMITIES: Warm, dry == muscle wasting, BLEXT wounds SKIN: No rash, no diaphoresis ID ASSESSMENT 63 yo M w/Hx of CVA admit with: 1. Bilateral lower extremities wounds with cellulitis and osteomyelitis * s/p 2nd toe amputation 01/02/19 2. End-stage renal disease 3. Diabetes 4. Diabetic neuropathy 5. 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 Continue current ABX 2. 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 . Consultation Date/Type/Reason Admit Date/Time Dec 18, 2018 at 04:02 Initial Consult Date 12/18/18 Requesting Provider: ADRIANA JUSTICE Date/Time of Note DATE: 01/05/19 TIME: 17:45 Exam/Review of Systems Exam Vitals Vital Signs Date Temp Pulse Resp B/P (MAP) Pulse Ox O2 O2 Flow FiO2 Time Delivery Rate 01/05/19 98.3 80 17 116/58 100 Room Air 08:08 (77) 01/04/19 3.0 17:28 Intake and Output 01/04/19 01/04/19 01/05/19 1515:00 23:00 07:00 IntakeIntake Total 300 ml 240 ml 100 ml OutputOutput Total 0 ml BalanceBalance 300 ml 240 ml 100 ml Results Result Diagram: 01/05/19 1322 01/05/19 1322 Results 24hrs Laboratory Tests Test 01/04/19 21:27 01/05/19 08:05 01/05/19 12:34 01/05/19 12:51 Bedside Glucose 171 121 50 L 46 *L Test 01/05/19 13:03 01/05/19 13:16 01/05/19 13:22 01/05/19 13:34 Bedside Glucose 74 111 110 White Blood Count 8.7 # Red Blood Count 3.25 L Hemoglobin 8.9 L Hematocrit 28.4 L Mean Corpuscular 87.4 Volume Mean Corpuscular 27.4 L Hemoglobin Mean Corpuscular 31.3 L Hemoglobin Concent Red Cell 17.3 H Distribution Width Platelet Count 395 Mean Platelet Volume 10.1 Immature 0.200 Granulocytes % Neutrophils % 78.6 H Lymphocytes % 9.0 L Monocytes % 7.6 Eosinophils % 3.8 Basophils % 0.8 Nucleated Red Blood 0.0 Cells % Immature 0.020 Granulocytes # Neutrophils # 6.9 Lymphocytes # 0.8 Monocytes # 0.7 Eosinophils # 0.3 Basophils # 0.1 Nucleated Red Blood 0.0 Cells # Sodium Level 137 Potassium Level 4.3 Chloride Level 98 Carbon Dioxide Level 27 Anion Gap 12 Blood Urea Nitrogen 53 H Creatinine 9.54 H Est Glomerular 7 L Filtrat Rate mL/min Glucose Level 102 Calcium Level 8.8 Medications Medication Current Medications Vancomycin HCl (Vanco Iv Per Pharmacy) VANCOMYCIN PER PHARMACY PER PROTOCOL XX ; Start 12/18/18 at 09:30 Hydralazine HCl (Apresoline) 20 mg Q4 PRN IV HIGH BLOOD Last administered on 12/29/18at 15:52; Admin Dose 20 MG; Start 12/18/18 at 09:30 Acetaminophen (Tylenol Tab) 650 mg Q4H PRN PO MILD PAIN(1-3)OR ELEVATED TEMP; Start 12/18/18 at 09:30 Acetaminophen/ Hydrocodone Bitart ([place] (5/325)) 1 tab Q4H PRN PO MODERATE PAIN LEVEL 4-6 Last administered on 12/22/18 00:00; Admin Dose 1 TAB; Start 12/18/18 at 09:30 Insulin Aspart (Novolog Insulin Pen) NOVOLOG *MILD* ALGORITHM WITH MEALS BEDTIME SC Last administered on 01/04/19 17:16; Admin Dose 2 UNIT; Start 12/18/18 at 12:00 Aspirin (Halfprin) 81 mg DAILY PO Last administered on 01/05/19 08:16; Admin Dose 81 MG; Start 12/18/18 at 09:30 Atorvastatin Calcium (Lipitor) 80 mg QHS PO Last administered on 01/04/19 21:29; Admin Dose 80 MG; Start 12/18/18 at 21:00 Baclofen (Lioresal) 10 mg TID PO Last administered on 01/05/19 12:33; Admin Dose 10 MG; Start 12/18/18 at 13:00 Clopidogrel Bisulfate (plaVIX) 75 mg DAILY PO Last administered on 01/05/19 08:16; Admin Dose 75 MG; Start 12/18/18 at 09:30 Multivit/Ca Carb/ B Cmplx/FA/Prenat (Amarilis-Christian) 1 tab DAILY PO Last administered on 01/05/19 08:16; Admin Dose 1 TAB; Start 12/18/18 at 09:30 Mirtazapine (Remeron) 15 mg HS PO Last administered on 01/04/19 21:29; Admin Dose 15 MG; Start 12/18/18 at 21:00 Paroxetine HCl (Paxil) 10 mg DAILY PO Last administered on 01/05/19 08:16; Admin Dose 10 MG; Start 12/18/18 at 09:30 Zinc Sulfate (Zinc Sulfate) 220 mg DAILY PO Last administered on 01/05/19 08:16; Admin Dose 220 MG; Start 12/18/18 at 09:30 Sevelamer Carbonate (Renvela) 800 mg WITH MEALS PO Last administered on 01/05/19 17:41; Admin Dose 800 MG; Start 12/18/18 at 11:30 Diagnostic Test (Pha) (Accu-Chek) 1 ea 02 XX Last administered on 01/04/19 02:00; Admin Dose 1 EA; Start 12/19/18 at 02:00 Miscellaneous Information 1 ea NOTE XX ; Start 12/18/18 at 13:00 Glucose (Glutose) 15 gm Q15M PRN PO DECREASED GLUCOSE Last administered on 12/19/18 22:39; Admin Dose 15 GM; Start 12/18/18 at 13:00 Glucose (Glutose) 22.5 gm Q15M PRN PO DECREASED GLUCOSE Last administered on 12/19/18 23:35; Admin Dose 22.5 GM; Start 12/18/18 at 13:00 Dextrose (D50w Syringe) 25 ml Q15M PRN IV DECREASED GLUCOSE; Start 12/18/18 at 13:00 Dextrose (D50w Syringe) 50 ml Q15M PRN IV DECREASED GLUCOSE Last administered on 12/22/18 07:09; Admin Dose 50 ML; Start 12/18/18 at 13:00 Glucagon (Glucagen) 1 mg Q15M PRN IM DECREASED GLUCOSE Last administered on 01/05/19 12:57; Admin Dose 1 MG; Start 12/18/18 at 13:00 Glucose (Glutose) 15 gm Q15M PRN BUCCAL DECREASED GLUCOSE; Start 12/18/18 at 13:00 Epoetin Josias-epbx (Retacrit (Esrd)) 8,000 unit MoWeFr@1700 SC Last administered on 01/03/19 17:22; Admin Dose 8,000 UNIT; Start 12/18/18 at 17:00 Levofloxacin (Levaquin) 500 mg Q48H PO Last administered on 01/05/19 08:03; A dmin Dose 500 MG; Start 12/20/18 at 08:00 Povidone Iodine (Povidone-Iodine) 1 applic BID TOP Last administered on 01/05/19 08:18; Admin Dose 1 APPLIC; Start 12/18/18 at 21:00 Sodium Hypochlorite (Dakins Diluted (1/40)) 1 applic BID TP Last administered on 01/04/19 21:34; Admin Dose 1 APPLIC; Start 12/18/18 at 21:00 Multi-Ingredient Ointment (Eucerin Cream) 1 applic DAILY TOP Last administered on 01/05/19 08:19; Admin Dose 1 APPLIC; Start 12/19/18 at 10:28 Ondansetron HCl (Zofran Inj) 4 mg Q6H PRN IV NAUSEA AND/OR VOMITING Last administered on 6/10/19at 05:05; Admin Dose 4 MG; Start 12/21/18 at 13:30 Linagliptin (Tradjenta) 5 mg DAILY PO Last administered on 01/05/19 08:17; Admin Dose 5 MG; Start 12/22/18 at 14:30 Bromocriptine Mesylate (Parlodel) 2.5 mg QHS PO Last administered on 01/04/19 21:28; Admin Dose 2.5 MG; Start 12/22/18 at 21:00 Diagnostic Test (Pha) (Accu-Chek) 1 ea AC MEALS XX Last administered on 01/05/19 17:43; Admin Dose 1 EA; Start 12/22/18 at 17:30 Vancomycin HCl 250 ml @ 125 mls/hr Q96H IVPB Last administered on 01/04/19 12:10; Admin Dose 125 MLS/HR; Start 12/23/18 at 12:00 Metoprolol Tartrate (Lopressor) 100 mg BID PO Last administered on 01/05/19 08:17; Admin Dose 100 MG; Start 12/26/18 at 21:00 Morphine Sulfate (morphine) 2 mg Q4H PRN IV SEVERE PAIN LEVEL 7-10 Last administered on 12/30/18 01:45; Admin Dose 2 MG; Start 12/29/18 at 19:00 Famotidine (Pepcid) 20 mg DAILY PO Last administered on 01/05/19 08:16; Admin Dose 20 MG; Start 12/31/18 at 09:00 Cilostazol (Pletal) 50 mg BID PO Last administered on 01/05/19 12:33; Admin Dose 50 MG; Start 12/30/18 at 21:00 Lisinopril (Zestril) 20 mg DAILY PO Last administered on 01/05/19 08:18; Admin Dose 20 MG; Start 01/03/19 at 09:00 Glimepiride (Amaryl) 2 mg BID PO ; Start 01/04/19 at 23:30; Status Hold Glipizide (Glucotrol) 5 mg AC BREAKFAST DINNER PO Last administered on 01/05/19 17:41; Admin Dose 5 MG; Start 01/05/19 at 07:00; Status Future Hold Insulin Aspart (Novolog Insulin Pen) 2 unit WITH MEALS SC Last administered on 6/23/19at 08:10; Admin Dose 2 UNIT; Start 01/05/19 at 07:35; Status Future Hold HELEN TRIANA NP Jan 05, 2019 17:46
[2019-01-05] MEDS ORDERED: INSULIN GLARGINE [LANTus] (100 UNITS/ML) SYG SC SCH (20:00)
[2019-01-05 20:02] VITALS: BP 160/68; PULSE 75; RESP 18
[2019-01-05] MEDS: ATORVASTATIN 80 MG TAB PO SCH (21:04)
[2019-01-05] MEDS: MIRTAZAPINE 15 MG TAB PO SCH (21:05)
[2019-01-05] MEDS: BROMOCRIPTINE 2.5 MG TAB PO SCH (21:05)
[2019-01-06] VITALS (18 sets, daily range): BP systolic 94–150; BP diastolic 40–63; PULSE 80–97; RESP 16–20
[2019-01-06] MEDS: INSULIN ASPART [NOVOLOG] 3 ML PEN SC SCH ×6 (01:00→21:00)
[2019-01-06] MEDS: ACCU-CHEK XX SCH ×4 (02:00→17:05)
[2019-01-06] MEDS: DEXTROSE 50% 50 ML SYRINGE IV PRN (08:38)
--- NOTE | 2019-01-06 08:38 | PN ---
DATE: 01/06/2019 SUBJECTIVE: The patient is stable, no events noted. OBJECTIVE: VITAL SIGNS: Blood pressure is 134/60, pulse 83, respirations 16, temperature 98.1. HEENT: Head is normocephalic. NECK: Supple. HEART: Regular rate. LUNGS: Show diminished breath sounds at the base. ABDOMEN: Soft, nontender to palpation without rebound or guarding. EXTREMITIES: Negative for clubbing, cyanosis, no edema. DERMATOLOGIC: No rashes. MUSCULOSKELETAL: No joint effusion. NEUROLOGIC: No change in exam. MEDICATIONS: Reviewed. LABORATORY DATA: Reviewed. ASSESSMENT AND PLAN: 1. End-stage renal disease. Continue intermittent hemodialysis. Plan is for hemodialysis for today . We will dialyze for 3 hours 2k bath, calcium 2.5. 2. Anemia. Monitor hemoglobin and hematocrit levels. Continue Epogen. 3. Mineral bone disorder. Monitor calcium and phosphorus levels. 4. Diabetes. Continue current insulin regimen. 5. Diabetic foot ulcer. The patient is status post second toe amputation. Continue to monitor. Fo llow up with podiatry. Continue wound care. 6. History of cerebrovascular accident. Continue medical management. 7. Encephalopathy. No change. 8. Hypertension. Continue current blood pressure regimen. 9. Dyslipidemia. Continue statin therapy. Dictated By: RUFUS CHERY/AMADEO Conf#: [id number] DID#: [id number] CC: BLAINE FAIRBANKS DPM; JACKI LARA MD;*EndCC*
[2019-01-06] MEDS: CLOPIDOGREL 75 MG TAB PO SCH (08:43)
[2019-01-06] MEDS: MULTIVIT/CA CARB/B CMPLX/FA TAB PO SCH (08:43)
[2019-01-06] MEDS: ZINC SULFATE 220 MG CAP PO SCH (08:43)
[2019-01-06] MEDS: BACLOFEN 10 MG TAB PO SCH ×3 (08:43→21:00)
[2019-01-06] MEDS: SEVELAMER CARBONATE 800 MG TABLET PO SCH ×3 (08:43→17:06)
[2019-01-06] MEDS: PAROXETINE 10 MG TAB PO SCH (08:43)
[2019-01-06] MEDS: CILOSTAZOL 100 MG TAB PO SCH ×2 (08:43→21:01)
[2019-01-06] MEDS: ASPIRIN (EC) 81 MG TAB PO SCH (08:44)
[2019-01-06] MEDS: METOPROLOL 100 MG TAB PO SCH ×2 (08:44→21:01)
[2019-01-06] MEDS: LINAGLIPTIN 5 MG TABLET PO SCH (08:44)
[2019-01-06] MEDS: LISINOPRIL 20 MG TAB PO SCH (08:44)
[2019-01-06] MEDS: FAMOTIDINE 20 MG TAB PO SCH (08:44)
[2019-01-06] MEDS: EUCERIN 113 GM CR TOP SCH (08:45)
[2019-01-06] MEDS: DAKINS 0.0125%(1/40) 473 ML SOLUTION TP SCH ×2 (08:45→21:02)
[2019-01-06] MEDS: POVIDONE IODINE 10% 28.4 GM OINT TOP SCH ×2 (08:46→21:03)
--- NOTE | 2019-01-06 13:16 | CONS ---
Assessment/Plan Assessment/Plan Hospital Course (Demo Recall) IMPRESSION: 1. Preoperative evaluation prior to possible toe amputation and possible need for further evaluation.-neg trop x 3. NL EF by echo. Ok to proceed with toe amputation under nerve block or MAC at moderate CV risk from cardiac standpoint but have concern for neuological status 2. Hypertension-well controlled 3. History of dyslipidemia. 4. Peripheral arterial disease with nonhealing lower extremity ulcers s/p toe amputation POD#1 5. Nonhealing lower extremity ulcers. 6. Cellulitis. 7. Diabetes mellitus. 8. Psychiatric disorder. 9. New change in MS-? CVA-head CT 12/20 neg for acute changes. ECG most recent without acute changes. -MS at baseline today Recc: -Now on med-surg -serial ecg's -Continue BB/zestril and follow BP closely and use PRN antihypertensives as necessary -Continue asa/plavix and now started on pletal but would watch for bleeding complications and follow hemoglobin closely -Continue statin -Continue abx's and f/u cx dta -Continue local wound care -HD as tolerated ongoing today Consultation Date/Type/Reason Admit Date/Time Dec 18, 2018 at 04:02 Initial Consult Date 12/18/18 Type of Consult Cardiology Reason for Consultation Balaji Requesting Provider: ADRIANA JUSTICE Date/Time of Note DATE: 01/06/19 TIME: 13:13 Exam/Review of Systems Vital Signs Vitals Vital Signs Date Temp Pulse Resp B/P (MAP) Pulse Ox O2 O2 Flow FiO2 Time Delivery Rate 01/06/19 87 12:50 01/06/19 17 126/53 97 Room Air 10:38 (77) 01/06/19 98.1 07:48 01/04/19 3.0 17:28 Intake and Output 01/05/19 01/05/19 01/06/19 1515:00 23:00 07:00 IntakeIntake Total 50 ml BalanceBalance 50 ml Exam Exam Review of Systems: CONSTITUTIONAL: No fevers, chills. PULMONARY: No sob CARDIOVASCULAR: No chest pain/palpitations GASTROINTESTINAL: No nausea/vomiting. GENITOURINARY: No hematuria/dysuria. MUSCULOSKELETAL: No myagias/arthalgias. PSYCHIATRIC: The patient denies depression. NEUROLOGIC: lethargic Constitutional: alert Psych: no complaints ENMT: mucosa pink and moist Neck: supple, jvd (9 cm water) Respiratory: diminished breath sounds Cardiovascular: regular rate and rhythm Gastrointestinal: soft, non-tender Musculoskeletal: muscle tone (normal) Extremities: edema Neurological: other (No focal deficits) Labs Result Diagram: 01/05/19 1322 01/05/19 1322 Results 24hrs Laboratory Tests Test 01/05/19 13:16 01/05/19 13:22 01/05/19 13:34 01/05/19 17:42 Bedside Glucose 111 110 57 L White Blood Count 8.7 # Red Blood Count 3.25 L Hemoglobin 8.9 L Hematocrit 28.4 L Mean Corpuscular 87.4 Volume Mean Corpuscular 27.4 L Hemoglobin Mean Corpuscular 31.3 L Hemoglobin Concent Red Cell 17.3 H Distribution Width Platelet Count 395 Mean Platelet Volume 10.1 Immature 0.200 Granulocytes % Neutrophils % 78.6 H Lymphocytes % 9.0 L Monocytes % 7.6 Eosinophils % 3.8 Basophils % 0.8 Nucleated Red Blood 0.0 Cells % Immature 0.020 Granulocytes # Neutrophils # 6.9 Lymphocytes # 0.8 Monocytes # 0.7 Eosinophils # 0.3 Basophils # 0.1 Nucleated Red Blood 0.0 Cells # Sodium Level 137 Potassium Level 4.3 Chloride Level 98 Carbon Dioxide Level 27 Anion Gap 12 Blood Urea Nitrogen 53 H Creatinine 9.54 H Est Glomerular 7 L Filtrat Rate mL/min Glucose Level 102 Calcium Level 8.8 Test 01/05/19 18:05 01/05/19 18:20 01/05/19 20:53 01/05/19 21:12 Bedside Glucose 120 113 43 *L 174 Test 01/05/19 21:30 01/05/19 23:38 01/06/19 00:59 01/06/19 05:01 Bedside Glucose 168 90 83 93 Test 01/06/19 08:03 01/06/19 08:35 01/06/19 08:56 01/06/19 09:19 Bedside Glucose 57 L 51 L 164 134 Test 01/06/19 12:13 Bedside Glucose 107 Medications Medications Current Medications Vancomycin HCl (Vanco Iv Per Pharmacy) VANCOMYCIN PER PHARMACY PER PROTOCOL XX ; Start 12/18/18 at 09:30 Hydralazine HCl (Apresoline) 20 mg Q4 PRN IV HIGH BLOOD Last administered on 12/29/18 15:52; Admin Dose 20 MG; Start 12/18/18 at 09:30 Acetaminophen (Tylenol Tab) 650 mg Q4H PRN PO MILD PAIN(1-3)OR ELEVATED TEMP; Start 12/18/18 at 09:30 Acetaminophen/ Hydrocodone Bitart ([place] (5/325)) 1 tab Q4H PRN PO MODERATE PAIN LEVEL 4-6 Last administered on 12/22/18 00:00; Admin Dose 1 TAB; Start 12/18/18 at 09:30 Aspirin (Halfprin) 81 mg DAILY PO Last administered on 01/06/19 08:44; Admin Dose 81 MG; Start 12/18/18 at 09:30 Atorvastatin Calcium (Lipitor) 80 mg QHS PO Last administered on 01/05/19 21:04; Admin Dose 80 MG; Start 12/18/18 at 21:00 Baclofen (Lioresal) 10 mg TID PO Last administered on 01/06/19 12:14; Admin Dose 10 MG; Start 12/18/18 at 13:00 Clopidogrel Bisulfate (plaVIX) 75 mg DAILY PO Last administered on 01/06/19 08:43; Admin Dose 75 MG; Start 12/18/18 at 09:30 Multivit/Ca Carb/ B Cmplx/FA/Prenat (Amarilis-Christina) 1 tab DAILY PO Last administered on 01/06/19 08:43; Admin Dose 1 TAB; Start 12/18/18 at 09:30 Mirtazapine (Remeron) 15 mg HS PO Last administered on 01/05/19 21:05; Admin Dose 15 MG; Start 12/18/18 at 21:00 Paroxetine HCl (Paxil) 10 mg DAILY PO Last administered on 01/06/19 08:43; Admin Dose 10 MG; Start 12/18/18 at 09:30 Zinc Sulfate (Zinc Sulfate) 220 mg DAILY PO Last administered on 01/06/19 08:43; Admin Dose 220 MG; Start 12/18/18 at 09:30 Sevelamer Carbonate (Renvela) 800 mg WITH MEALS PO Last administered on 01/06/19 12:14; Admin Dose 800 MG; Start 12/18/18 at 11:30 Diagnostic Test (Pha) (Accu-Chek) 1 ea 02 XX Last administered on 01/04/19at 02:00; Admin Dose 1 EA; Start 12/19/18 at 02:00 Miscellaneous Information 1 ea NOTE XX ; Start 12/18/18 at 13:00 Glucose (Glutose) 15 gm Q15M PRN PO DECREASED GLUCOSE Last administered on 12/19/18 22:39; Admin Dose 15 GM; Start 12/18/18 at 13:00 Glucose (Glutose) 22.5 gm Q15M PRN PO DECREASED GLUCOSE Last administered on 12/19/18 23:35; Admin Dose 22.5 GM; Start 12/18/18 at 13:00 Dextrose (D50w Syringe) 25 ml Q15M PRN IV DECREASED GLUCOSE Last administered on 01/06/19 08:38; Admin Dose 25 ML; Start 12/18/18 at 13:00 Dextrose (D50w Syringe) 50 ml Q15M PRN IV DECREASED GLUCOSE Last administered on 01/05/19 20:57; Admin Dose 50 ML; Start 12/18/18 at 13:00 Glucagon (Glucagen) 1 mg Q15M PRN IM DECREASED GLUCOSE Last administered on 01/05/19 12:57; Admin Dose 1 MG; Start 12/18/18 at 13:00 Glucose (Glutose) 15 gm Q15M PRN BUCCAL DECREASED GLUCOSE; Start 12/18/18 at 13:00 Epoetin Josias-epbx (Retacrit (Esrd)) 8,000 unit MoWeFr@1700 SC Last administered on 01/03/19at 17:22; Admin Dose 8,000 UNIT; Start 12/18/18 at 17:00 Levofloxacin (Levaquin) 500 mg Q48H PO Last administered on 01/05/19 08:03; Admin Dose 500 MG; Start 12/20/18 at 08:00 Povidone Iodine (Povidone-Iodine) 1 applic BID TOP Last administered on 08:46; Admin Dose 1 APPLIC; Start 12/18/18 at 21:00 Sodium Hypochlorite (Dakins Diluted (40)) 1 applic BID TP Last administered on 01/06/19 08:45; Admin Dose 1 APPLIC; Start 12/18/18 at 21:00 Multi-Ingredient Ointment (Eucerin Cream) 1 applic DAILY TOP Last administered on 01/06/19 08:45; Admin Dose 1 APPLIC; Start 12/19/18 at 10:28 Ondansetron HCl (Zofran Inj) 4 mg Q6H PRN IV NAUSEA AND/OR VOMITING Last administered on 12/23/18 05:05; Admin Dose 4 MG; Start 12/21/18 at 13:30 Linagliptin (Tradjenta) 5 mg DAILY PO Last administered on 01/06/19 08:44; Admin Dose 5 MG; Start 12/22/18 at 14:30; Status Hold Bromocriptine Mesylate (Parlodel) 2.5 mg QHS PO Last administered on 01/05/19 21:05; Admin Dose 2.5 MG; Start 12/22/18 at 21:00 Diagnostic Test (Pha) (Accu-Chek) 1 ea AC MEALS XX Last administered on 01/06/19 12:14; Admin Dose 1 EA; Start 12/22/18 at 17:30 Vancomycin HCl 250 ml @ 125 mls/hr Q96H IVPB Last administered on 01/04/19 12:10; Admin Dose 125 MLS/HR; Start 12/23/18 at 12:00 Metoprolol Tartrate (Lopressor) 100 mg BID PO Last administered on 01/05/19 21:04; Admin Dose 100 MG; Start 12/26/18 at 21:00 Morphine Sulfate (morphine) 2 mg Q4H PRN IV SEVERE PAIN LEVEL 7-10 Last administered on 12/30/18 01:45; Admin Dose 2 MG; Start 12/29/18 at 19:00 Famotidine (Pepcid) 20 mg DAILY PO Last administered on 01/06/19 08:44; Admin Dose 20 MG; Start 12/31/18 at 09:00 Cilostazol (Pletal) 50 mg BID PO Last administered on 01/06/19 08:43; Admin Dose 50 MG; Start 12/30/18 at 21:00 Lisinopril (Zestril) 20 mg DAILY PO Last administered on 01/05/19 08:18; Admin Dose 20 MG; Start 01/03/19 at 09:00 Glimepiride (Amaryl) 2 mg BID PO ; Start 01/04/19 at 23:30; Status Hold Insulin Aspart (Novolog Insulin Pen) NOVOLOG *MILD* ALGORITHM Q4 SC ; Start 01/06/19 at 01:00 JUWAN TAYLOR Jan 06, 2019 13:16
--- NOTE | 2019-01-06 15:32 | CONS ---
Assessment/Plan Assessment/Plan Hospital Course (Demo Recall) 1300 no acute changes, patient is in HD looks comfortable no fevers overnight Indwelling's: Left upper extremity AV fistula Allergy: Clindamycin Antimicrobials: Levofloxacin, Vanco Physical examination: Well-developed well-nourished elderly -[place] male in who is in no distress. Head atraumatic normocephalic neck is supple chest rise symmetrical breath sounds diminished bases. Heart: S1-S2. Abdomen soft bowel sounds present. Extremities with bilateral lower extremities priscilla ssing intact Assessment: 1. Bilateral lower extremities wounds with cellulitis and osteomyelitis of the toe, s/p 2nd toe amputation 01/02/19 2. End-stage renal disease 3. Diabetes 4. Diabetic neuropathy Plan: Clinically unchanged, per dw Dr Ford will complete 6 week course of abx Consultation Date/Type/Reason Admit Date/Time Dec 18, 2018 at 04:02 Initial Consult Date 12/18/18 Type of Consult id Requesting Provider: ADRIANA JUSTICE Date/Time of Note DATE: 01/06/19 TIME: 15:29 Exam/Review of Systems Exam Vitals Vital Signs Date Temp Pulse Resp B/P (MAP) Pulse Ox O2 O2 Flow FiO2 Time Delivery Rate 01/06/19 98.1 97 18 106/51 97 14:33 (69) 01/06/19 Room Air 10:38 01/04/19 3.0 17:28 Intake and Output 01/05/19 01/05/19 01/06/19 1515:00 23:00 07:00 IntakeIntake Total 50 ml BalanceBalance 50 ml Results Result Diagram: 01/05/19 1322 01/05/19 1322 Results 24hrs Laboratory Tests Test 01/05/19 17:42 01/05/19 18:05 01/05/19 18:20 01/05/19 20:53 Bedside Glucose 57 L 120 113 43 *L Test 01/05/19 21:12 01/05/19 21:30 01/05/19 23:38 01/06/19 00:59 Bedside Glucose 174 168 90 83 Test 01/06/19 05:01 01/06/19 08:03 01/06/19 08:35 01/06/19 08:56 Bedside Glucose 93 57 L 51 L 164 Test 01/06/19 09:19 01/06/19 12:13 Bedside Glucose 134 107 Medications Medication Current Medications Vancomycin HCl (Vanco Iv Per Pharmacy) VANCOMYCIN PER PHARMACY PER PROTOCOL XX ; Start 12/18/18 at 09:30 Hydralazine HCl (Apresoline) 20 mg Q4 PRN IV HIGH BLOOD Last administered on 12/29/18 15:52; Admin Dose 20 MG; Start 12/18/18 at 09:30 Acetaminophen (Tylenol Tab) 650 mg Q4H PRN PO MILD PAIN(1-3)OR ELEVATED TEMP; Start 12/18/18 at 09:30 Acetaminophen/ Hydrocodone Bitart ([place] (5/325)) 1 tab Q4H PRN PO MODERATE PAIN LEVEL 4-6 Last administered on 12/22/18 00:00; Admin Dose 1 TAB; Start 12/18/18 at 09:30 Aspirin (Halfprin) 81 mg DAILY PO Last administered on 01/06/19 08:44; Admin Dose 81 MG; Start 12/18/18 at 09:30 Atorvastatin Calcium (Lipitor) 80 mg QHS PO Last administered on 01/05/19 21:04; Admin Dose 80 MG; Start 12/18/18 at 21:00 Baclofen (Lioresal) 10 mg TID PO Last administered on 01/06/19 12:14; Admin Dose 10 MG; Start 12/18/18 at 13:00 Clopidogrel Bisulfate (plaVIX) 75 mg DAILY PO Last administered on 01/06/19 08:43; Admin Dose 75 MG; Start 12/18/18 at 09:30 Multivit/Ca Carb/ B Cmplx/FA/Prenat (Amarilis-Christina) 1 tab DAILY PO Last administered on 01/06/19 08:43; Admin Dose 1 TAB; Start 12/18/18 at 09:30 Mirtazapine (Remeron) 15 mg HS PO Last administered on 01/05/19 21:05; Admin Dose 15 MG; Start 12/18/18 at 21:00 Paroxetine HCl (Paxil) 10 mg DAILY PO Last administered on 01/06/19 08:43; Admin Dose 10 MG; Start 12/18/18 at 09:30 Zinc Sulfate (Zinc Sulfate) 220 mg DAILY PO Last administered on 01/06/19 08:43; Admin Dose 220 MG; Start 12/18/18 at 09:30 Sevelamer Carbonate (Renvela) 800 mg WITH MEALS PO Last administered on 01/06/19 12:14; Admin Dose 800 MG; Start 12/18/18 at 11:30 Diagnostic Test (Pha) (Accu-Chek) 1 ea 02 XX Last administered on 01/04/19 02:00; Admin Dose 1 EA; Start 12/19/18 at 02:00 Miscellaneous Information 1 ea NOTE XX ; Start 12/18/18 at 13:00 Glucose (Glutose) 15 gm Q15M PRN PO DECREASED GLUCOSE Last administered on 12/19/18 22:39; Admin Dose 15 GM; Start 12/18/18 at 13:00 Glucose (Glutose) 22.5 gm Q15M PRN PO DECREASED GLUCOSE Last administered on 12/19/18 23:35; Admin Dose 22.5 GM; Start 12/18/18 at 13:00 Dextrose (D50w Syringe) 25 ml Q15M PRN IV DECREASED GLUCOSE Last administered on 01/06/19 08:38; Admin Dose 25 ML; Start 12/18/18 at 13:00 Dextrose (D50w Syringe) 50 ml Q15M PRN IV DECREASED GLUCOSE Last administered on 01/05/19 20:57; Admin Dose 50 ML; Start 12/18/18 at 13:00 Glucagon (Glucagen) 1 mg Q15M PRN IM DECREASED GLUCOSE Last administered on 01/05/19 12:57; Admin Dose 1 MG; Start 12/18/18 at 13:00 Glucose (Glutose) 15 gm Q15M PRN BUCCAL DECREASED GLUCOSE; Start 12/18/18 at 13:00 Epoetin Josias-epbx (Retacrit (Esrd)) 8,000 unit MoWeFr@1700 SC Last administered on 01/03/19 17:22; Admin Dose 8,000 UNIT; Start 12/18/18 at 17:00 Levofloxacin (Levaquin) 500 mg Q48H PO Last administered on 01/05/19 08:03; Admin Dose 500 MG; Start 12/20/18 at 08:00 Povidone Iodine (Povidone-Iodine) 1 applic BID TOP Last administered on 01/06/19 08:46; Admin Dose 1 APPLIC; Start 12/18/18 at 21:00 Sodium Hypochlorite (Dakins Diluted (40)) 1 applic BID TP Last administered on 01/06/19 08:45; Admin Dose 1 APPLIC; Start 12/18/18 at 21:00 Multi-Ingredient Ointment (Eucerin Cream) 1 applic DAILY TOP Last administered on 01/06/19 08:45; Admin Dose 1 APPLIC; Start 12/19/18 at 10:28 Ondansetron HCl (Zofran Inj) 4 mg Q6H PRN IV NAUSEA AND/OR VOMITING Last administered on 12/23/18 05:05; Admin Dose 4 MG; Start 12/21/18 at 13:30 Linagliptin (Tradjenta) 5 mg DAILY PO Last administered on 01/06/19 08:44; Admin Dose 5 MG; Start 12/22/18 at 14:30; Status Hold Bromocriptine Mesylate (Parlodel) 2.5 mg QHS PO Last administered on 01/05/19 21:05; Admin Dose 2.5 MG; Start 12/22/18 at 21:00 Diagnostic Test (Pha) (Accu-Chek) 1 ea AC MEALS XX Last administered on 01/06/19 12:14; Admin Dose 1 EA; Start 12/22/18 at 17:30 Vancomycin HCl 250 ml @ 125 mls/hr Q96H IVPB Last administered on 01/04/19 12:10; Admin Dose 125 MLS/HR; Start 12/23/18 at 12:00 Metoprolol Tartrate (Lopressor) 100 mg BID PO Last administered on 01/05/19 21:04; Admin Dose 100 MG; Start 12/26/18 at 21:00 Morphine Sulfate (morphine) 2 mg Q4H PRN IV SEVERE PAIN LEVEL 7-10 Last administered on 12/30/18 01:45; Admin Dose 2 MG; Start 12/29/18 at 19:00 Famotidine (Pepcid) 20 mg DAILY PO Last administered on 01/06/19 08:44; Admin Dose 20 MG; Start 12/31/18 at 09:00 Cilostazol (Pletal) 50 mg BID PO Last administered on 01/06/19 08:43; Admin Dose 50 MG; Start 12/30/18 at 21:00 Lisinopril (Zestril) 20 mg DAILY PO Last administered on 01/05/19at 08:18; Admin Dose 20 MG; Start 01/03/19 at 09:00 Glimepiride (Amaryl) 2 mg BID PO ; Start 01/04/19 at 23:30; Status Hold Insulin Aspart (Novolog Insulin Pen) NOVOLOG *MILD* ALGORITHM Q4 SC ; Start 01/06/19 at 01:00 SARABJIT DILLARD NP Jan 06, 2019 15:32
[2019-01-06] MEDS: EPOETIN ALFA-EPBX (ESRD) 4,000 UNIT/ML VIAL SC SCH (17:05)
--- NOTE | 2019-01-06 17:27 | PN ---
Date/Time of Note Date/Time of Note DATE: 01/06/19 TIME: 17:20 Assessment/Plan VTE Prophylaxis Risk score (from Nsg)>0 risk: 4 SCD applied (from Nsg): Yes Pharmacological prophylaxis: other Lines/Catheters IV Catheter Type (from Nrsg): Sal[place] Lock Urinary Cath still in place: No Assessment/Plan Hospital Course Patient had an episode of hypoglycemia ,currently all hypoglycemic is held, we will continue Accu-Chek q. before meals and at bedtime with NovoLog coverage. Patient is awake alert communicative. Case management to arrange for vancomycin [facility] for treatment of osteomyelitis. Assessment/Plan -Level of consciousness most likely secondary to blood sugar fluctuation, CT of the brain and MRI of the head are negative for acute stroke. Dr. Alfaro is following in neurology consultation. -Right foot ulcer with cellulitis, right second toe ulcer with osteomyelitis and bone exposure. S/p right second toe amputation by Dr.Dr. Ford, podiatry. Continue abx per ID. Dr. Giles is following in infection disease consultation. -Hemodialysis dependent end-stage renal disease. Dr. Agustin is following in nephrology consultation. -Diabetes mellitus type 2. Continue Lantus and NovoLog. -Hyperlipidemia, continue statin. -History of stroke, continue Plavix. Further recommendations based on clinical course. Plan of care discussed with Dr. Perez. Result Diagram: 01/05/19 1322 01/05/19 1322 Results 24hrs Laboratory Tests Test 01/05/19 17:42 01/05/19 18:05 01/05/19 18:20 01/05/19 20:53 Bedside Glucose 57 L 120 113 43 *L Test 01/05/19 21:12 01/05/19 21:30 01/05/19 23:38 01/06/19 00:59 Bedside Glucose 174 168 90 83 Test 01/06/19 05:01 01/06/19 08:03 01/06/19 08:35 01/06/19 08:56 Bedside Glucose 93 57 L 51 L 164 Test 01/06/19 09:19 01/06/19 12:13 Bedside Glucose 134 107 Exam/Review of Systems Exam Vitals Vital Signs Date Temp Pulse Resp B/P (MAP) Pulse Ox O2 O2 Flow FiO2 Time Delivery Rate 01/06/19 98.1 97 18 106/51 97 14:33 (69) 01/06/19 Room Air 10:38 01/04/19 3.0 17:28 Intake and Output 01/05/19 01/05/19 01/06/19 1515:00 23:00 07:00 IntakeIntake Total 50 ml BalanceBalance 50 ml Exam Constitutional: awake, alert, communicative Respiratory: clear to auscultation Cardiovascular: nl pulses Gastrointestinal: soft, non-tender Musculoskeletal: nl extremities to inspection Extremities: normal pulses, other (status post right second toe amputation, left upper extremity AV fistula) Results Results 24hrs Laboratory Tests Test 01/05/19 17:42 01/05/19 18:05 01/05/19 18:20 01/05/19 20:53 Bedside Glucose 57 L 120 113 43 *L Test 01/05/19 21:12 01/05/19 21:30 01/05/19 23:38 01/06/19 00:59 Bedside Glucose 174 168 90 83 Test 01/06/19 05:01 01/06/19 08:03 01/06/19 08:35 01/06/19 08:56 Bedside Glucose 93 57 L 51 L 164 Test 01/06/19 09:19 01/06/19 12:13 Bedside Glucose 134 107 Medications Medication Current Medications Vancomycin HCl (Vanco Iv Per Pharmacy) VANCOMYCIN PER PHARMACY PER PROTOCOL XX ; Start 12/18/18 at 09:30 Hydralazine HCl (Apresoline) 20 mg Q4 PRN IV HIGH BLOOD Last administered on at 15:52; Admin Dose 20 MG; Start 12/18/18 at 09:30 Acetaminophen (Tylenol Tab) 650 mg Q4H PRN PO MILD PAIN(1-3)OR ELEVATED TEMP; Start 12/18/18 at 09:30 Acetaminophen/ Hydrocodone Bitart ([place] (5/325)) 1 tab Q4H PRN PO MODERATE PAIN LEVEL 4-6 Last administered on 12/22/18at 00:00; Admin Dose 1 TAB; Start 12/18/18 at 09:30 Aspirin (Halfprin) 81 mg DAILY PO Last administered on 01/06/19at 08:44; Admin Dose 81 MG; Start 12/18/18 at 09:30 Atorvastatin Calcium (Lipitor) 80 mg QHS PO Last administered on 01/05/19 21:04; Admin Dose 80 MG; Start 12/18/18 at 21:00 Baclofen (Lioresal) 10 mg TID PO Last administered on 01/06/19 12:14; Admin Dose 10 MG; Start 12/18/18 at 13:00 Clopidogrel Bisulfate (plaVIX) 75 mg DAILY PO Last administered on 01/06/19 08:43; Admin Dose 75 MG; Start 12/18/18 at 09:30 Multivit/Ca Carb/ B Cmplx/FA/Prenat (Amarilis-Christina) 1 tab DAILY PO Last administered on 01/06/19 08:43; Admin Dose 1 TAB; Start 12/18/18 at 09:30 Mirtazapine (Remeron) 15 mg HS PO Last administered on 01/05/19 21:05; Admin Dose 15 MG; Start 12/18/18 at 21:00 Paroxetine HCl (Paxil) 10 mg DAILY PO Last administered on 01/06/19 08:43; Admin Dose 10 MG; Start 12/18/18 at 09:30 Zinc Sulfate (Zinc Sulfate) 220 mg DAILY PO Last administered on 01/06/19 08:43; Admin Dose 220 MG; Start 12/18/18 at 09:30 Sevelamer Carbonate (Renvela) 800 mg WITH MEALS PO Last administered on 01/06/19 17:06; Admin Dose 800 MG; Start 12/18/18 at 11:30 Diagnostic Test (Pha) (Accu-Chek) 1 ea 02 XX Last administered on 01/04/19 02:00; Admin Dose 1 EA; Start 12/19/18 at 02:00 Miscellaneous Information 1 ea NOTE XX ; Start 12/18/18 at 13:00 Glucose (Glutose) 15 gm Q15M PRN PO DECREASED GLUCOSE Last administered on 12/19/18 22:39; Admin Dose 15 GM; Start 12/18/18 at 13:00 Glucose (Glutose) 22.5 gm Q15M PRN PO DECREASED GLUCOSE Last administered on 12/19/18 23:35; Admin Dose 22.5 GM; Start 12/18/18 at 13:00 Dextrose (D50w Syringe) 25 ml Q15M PRN IV DECREASED GLUCOSE Last administered on 6/24/19at 08:38; Admin Dose 25 ML; Start 12/18/18 at 13:00 Dextrose (D50w Syringe) 50 ml Q15M PRN IV DECREASED GLUCOSE Last administered on 01/05/19 20:57; Admin Dose 50 ML; Start 12/18/18 at 13:00 Glucagon (Glucagen) 1 mg Q15M PRN IM DECREASED GLUCOSE Last administered on 01/05/19 12:57; Admin Dose 1 MG; Start 12/18/18 at 13:00 Glucose (Glutose) 15 gm Q15M PRN BUCCAL DECREASED GLUCOSE; Start 12/18/18 at 13:00 Epoetin Josias-epbx (Retacrit (Esrd)) 8,000 unit MoWeFr@1700 SC Last administered on 01/06/19 17:05; Admin Dose 8,000 UNIT; Start 12/18/18 at 17:00 Levofloxacin (Levaquin) 500 mg Q48H PO Last administered on 01/05/19 08:03; Admin Dose 500 MG; Start 12/20/18 at 08:00 Povidone Iodine (Povidone-Iodine) 1 applic BID TOP Last administered on 01/06/19 08:46; Admin Dose 1 APPLIC; Start 12/18/18 at 21:00 Sodium Hypochlorite (Dakins Diluted (40)) 1 applic BID TP Last administered on 01/06/19 08:45; Admin Dose 1 APPLIC; Start 12/18/18 at 21:00 Multi-Ingredient Ointment (Eucerin Cream) 1 applic DAILY TOP Last administered on 01/06/19 08:45; Admin Dose 1 APPLIC; Start 12/19/18 at 10:28 Ondansetron HCl (Zofran Inj) 4 mg Q6H PRN IV NAUSEA AND/OR VOMITING Last administered on 12/23/18 05:05; Admin Dose 4 MG; Start 12/21/18 at 13:30 Linagliptin (Tradjenta) 5 mg DAILY PO Last administered on 01/06/19 08:44; Admin Dose 5 MG; Start 12/22/18 at 14:30; Status Hold Bromocriptine Mesylate (Parlodel) 2.5 mg QHS PO Last administered on 01/05/19 21:05; Admin Dose 2.5 MG; Start 12/22/18 at 21:00 Diagnostic Test (Pha) (Accu-Chek) 1 ea AC MEALS XX Last administered on 01/06/19 17:05; Admin Dose 1 EA; Start 12/22/18 at 17:30 Vancomycin HCl 250 ml @ 125 mls/hr Q96H IVPB Last administered on 01/04/19 12 :10; Admin Dose 125 MLS/HR; Start 12/23/18 at 12:00 Metoprolol Tartrate (Lopressor) 100 mg BID PO Last administered on 01/05/19 21:04; Admin Dose 100 MG; Start 12/26/18 at 21:00 Morphine Sulfate (morphine) 2 mg Q4H PRN IV SEVERE PAIN LEVEL 7-10 Last administered on 12/30/18 01:45; Admin Dose 2 MG; Start 12/29/18 at 19:00 Famotidine (Pepcid) 20 mg DAILY PO Last administered on 01/06/19at 08:44; Admin Dose 20 MG; Start 12/31/18 at 09:00 Cilostazol (Pletal) 50 mg BID PO Last administered on 01/06/19 08:43; Admin Dose 50 MG; Start 12/30/18 at 21:00 Lisinopril (Zestril) 20 mg DAILY PO Last administered on 01/05/19 08:18; Admin Dose 20 MG; Start 01/03/19 at 09:00 Glimepiride (Amaryl) 2 mg BID PO ; Start 01/04/19 at 23:30; Status Hold Insulin Aspart (Novolog Insulin Pen) NOVOLOG *MILD* ALGORITHM Q4 SC ; Start 01/06/19 at 01:00 NEL LARSEN Jan 06, 2019 17:27
--- NOTE | 2019-01-06 19:38 | CONS ---
Assessment/Plan Assessment/Plan Problems: (1) Diabetes mellitus type 2 in nonobese Status: Chronic Comment: After transition to oral sulfonylurea agents patient had hypoglycemic reactions. Regimen has been changed back. At this time if wish to use an insulin secretagogue therapy I would recommend a short acting agent with meals such as nateglinide rather than a long-acting agent such as glipizide or glim epiride. (2) End-stage renal disease on hemodialysis Status: Chronic Consultation Date/Type/Reason Admit Date/Time Dec 18, 2018 at 04:02 Initial Consult Date 12/22/18 Type of Consult Endocrinology Reason for Consultation Diabetes mellitus type 2 with complications Requesting Provider: ADRIANA JUSTICE Date/Time of Note DATE: 01/06/19 TIME: 19:36 24 HR Interval Summary Free Text/Dictation Patient more awake and alert this afternoon Exam/Review of Systems Exam Vitals Vital Signs Date Temp Pulse Resp B/P (MAP) Pulse Ox O2 O2 Flow FiO2 Time Delivery Rate 01/06/19 98.1 97 18 106/51 97 14:33 (69) 01/06/19 Room Air 10:38 01/04/19 3.0 17:28 Intake and Output 01/05/19 01/05/19 01/06/19 1515:00 23:00 07:00 IntakeIntake Total 50 ml BalanceBalance 50 ml Exam No change in examination Results Result Diagram: 01/05/19 1322 01/05/19 1322 Results 24hrs Laboratory Tests Test 01/05/19 20:53 01/05/19 21:12 01/05/19 21:30 01/05/19 23:38 Bedside Glucose 43 *L 174 168 90 Test 01/06/19 00:59 01/06/19 05:01 01/06/19 08:03 01/06/19 08:35 Bedside Glucose 83 93 57 L 51 L Test 01/06/19 08:56 01/06/19 09:19 01/06/19 12:13 01/06/19 17:04 Bedside Glucose 164 134 107 139 Medications Medication Current Medications Vancomycin HCl (Vanco Iv Per Pharmacy) VANCOMYCIN PER PHARMACY PER PROTOCOL XX ; Start 12/18/18 at 09:30 Hydralazine HCl (Apresoline) 20 mg Q4 PRN IV HIGH BLOOD Last administered on 12/29/18at 15:52; Admin Dose 20 MG; Start 12/18/18 at 09:30 Acetaminophen (Tylenol Tab) 650 mg Q4H PRN PO MILD PAIN(1-3)OR ELEVATED TEMP; Start 12/18/18 at 09:30 Acetaminophen/ Hydrocodone Bitart ([place] (5/325)) 1 tab Q4H PRN PO MODERATE PAIN LEVEL 4-6 Last administered on 12/22/18 00:00; Admin Dose 1 TAB; Start 12/18/18 at 09:30 Aspirin (Halfprin) 81 mg DAILY PO Last administered on 01/06/19 08:44; Admin Dose 81 MG; Start 12/18/18 at 09:30 Atorvastatin Calcium (Lipitor) 80 mg QHS PO Last administered on 01/05/19 21 :04; Admin Dose 80 MG; Start 12/18/18 at 21:00 Baclofen (Lioresal) 10 mg TID PO Last administered on 01/06/19 12:14; Admin Dose 10 MG; Start 12/18/18 at 13:00 Clopidogrel Bisulfate (plaVIX) 75 mg DAILY PO Last administered on 01/06/19 08:43; Admin Dose 75 MG; Start 12/18/18 at 09:30 Multivit/Ca Carb/ B Cmplx/FA/Prenat (Amarilis-Christina) 1 tab DAILY PO Last administered on 01/06/19 08:43; Admin Dose 1 TAB; Start 12/18/18 at 09:30 Mirtazapine (Remeron) 15 mg HS PO Last administered on 01/05/19 21:05; Admin Dose 15 MG; Start 12/18/18 at 21:00 Paroxetine HCl (Paxil) 10 mg DAILY PO Last administered on 01/06/19 08:43; Admin Dose 10 MG; Start 12/18/18 at 09:30 Zinc Sulfate (Zinc Sulfate) 220 mg DAILY PO Last administered on 01/06/19 08:43; Admin Dose 220 MG; Start 12/18/18 at 09:30 Sevelamer Carbonate (Renvela) 800 mg WITH MEALS PO Last administered on 01/06/19 17:06; Admin Dose 800 MG; Start 12/18/18 at 11:30 Diagnostic Test (Pha) (Accu-Chek) 1 02 XX Last administered on 6/22/19at 02:00; Admin Dose 1 EA; Start 12/19/18 at 02:00 Miscellaneous Information 1 ea NOTE XX ; Start 12/18/18 at 13:00 Glucose (Glutose) 15 gm Q15M PRN PO DECREASED GLUCOSE Last administered on 12/19/18 22:39; Admin Dose 15 GM; Start 12/18/18 at 13:00 Glucose (Glutose) 22.5 gm Q15M PRN PO DECREASED GLUCOSE Last administered on 12/19/18 23:35; Admin Dose 22.5 GM; Start 12/18/18 at 13:00 Dextrose (D50w Syringe) 25 ml Q15M PRN IV DECREASED GLUCOSE Last administered on 01/06/19 08:38; Admin Dose 25 ML; Start 12/18/18 at 13:00 Dextrose (D50w Syringe) 50 ml Q15M PRN IV DECREASED GLUCOSE Last administered on 01/05/19at 20:57; Admin Dose 50 ML; Start 12/18/18 at 13:00 Glucagon (Glucagen) 1 mg Q15M PRN IM DECREASED GLUCOSE Last administered on 01/05/19 12:57; Admin Dose 1 MG; Start 12/18/18 at 13:00 Glucose (Glutose) 15 gm Q15M PRN BUCCAL DECREASED GLUCOSE; Start 12/18/18 at 13:00 Epoetin Josias-epbx (Retacrit (Esrd)) 8,000 unit MoWeFr@1700 SC Last administered on 01/06/19at 17:05; Admin Dose 8,000 UNIT; Start 12/18/18 at 17:00 Levofloxacin (Levaquin) 500 mg Q48H PO Last administered on 01/05/19at 08:03; Ad min Dose 500 MG; Start 12/20/18 at 08:00 Povidone Iodine (Povidone-Iodine) 1 applic BID TOP Last administered on 01/06/19 08:46; Admin Dose 1 APPLIC; Start 12/18/18 at 21:00 Sodium Hypochlorite (Dakins Diluted (/40)) 1 applic BID TP Last administered on 01/06/19at 08:45; Admin Dose 1 APPLIC; Start 12/18/18 at 21:00 Multi-Ingredient Ointment (Eucerin Cream) 1 applic DAILY TOP Last administered on 01/06/19 08:45; Admin Dose 1 APPLIC; Start 12/19/18 at 10:28 Ondansetron HCl (Zofran Inj) 4 mg Q6H PRN IV NAUSEA AND/OR VOMITING Last administered on 12/23/18 05:05; Admin Dose 4 MG; Start 12/21/18 at 13:30 Linagliptin (Tradjenta) 5 mg DAILY PO Last administered on 01/06/19 08:44; Admin Dose 5 MG; Start 12/22/18 at 14:30; Status Hold Bromocriptine Mesylate (Parlodel) 2.5 mg QHS PO Last administered on 01/05/19 21:05; Admin Dose 2.5 MG; Start 12/22/18 at 21:00 Diagnostic Test (Pha) (Accu-Chek) 1 ea AC MEALS XX Last administered on 01/06/19 17:05; Admin Dose 1 EA; Start 12/22/18 at 17:30 Vancomycin HCl 250 ml @ 125 mls/hr Q96H IVPB Last administered on 01/04/19 12:10; Admin Dose 125 MLS/HR; Start 12/23/18 at 12:00 Metoprolol Tartrate (Lopressor) 100 mg BID PO Last administered on 01/05/19 21:04; Admin Dose 100 MG; Start 12/26/18 at 21:00 Morphine Sulfate (morphine) 2 mg Q4H PRN IV SEVERE PAIN LEVEL 7-10 Last administered on 12/30/18 01:45; Admin Dose 2 MG; Start 12/29/18 at 19:00 Famotidine (Pepcid) 20 mg DAILY PO Last administered on 01/06/19 08:44; Admin Dose 20 MG; Start 12/31/18 at 09:00 Cilostazol (Pletal) 50 mg BID PO Last administered on 01/06/19 08:43; Admin Dose 50 MG; Start 12/30/18 at 21:00 Lisinopril (Zestril) 20 mg DAILY PO Last administered on 01/05/19 08:18; Admin Dose 20 MG; Start 01/03/19 at 09:00 Glimepiride (Amaryl) 2 mg BID PO ; Start 01/04/19 at 23:30; Status Hold Insulin Aspart (Novolog Insulin Pen) NOVOLOG *MILD* ALGORITHM Q4 SC ; Start 01/06/19 at 01:00 RADHA HENSON MD Jan 06, 2019 19:38
[2019-01-06] MEDS: BROMOCRIPTINE 2.5 MG TAB PO SCH (21:00)
[2019-01-06] MEDS: ATORVASTATIN 80 MG TAB PO SCH (21:00)
[2019-01-06] MEDS: MIRTAZAPINE 15 MG TAB PO SCH (21:01)
[2019-01-07] MEDS: INSULIN ASPART [NOVOLOG] 3 ML PEN SC SCH ×5 (01:00→17:00)
[2019-01-07] MEDS: ACCU-CHEK XX SCH ×4 (01:14→17:13)
[2019-01-07 02:38] VITALS: BP 109/53; PULSE 85; RESP 20
[2019-01-07] MEDS: SEVELAMER CARBONATE 800 MG TABLET PO SCH ×3 (08:04→17:13)
[2019-01-07] MEDS: LEVOFLOXACIN 500 MG TAB PO SCH (08:05)
[2019-01-07 08:33] VITALS: BP 155/67; PULSE 82; RESP 16
--- NOTE | 2019-01-07 08:47 | PN ---
DATE: 01/07/2019 SUBJECTIVE: The patient is stable, no events overnight. OBJECTIVE: VITAL SIGNS: Blood pressure is 109/53, respirations 20, pulse 85, temperature 98.2. HEAD: Normocephalic. NECK: Supple. HEART: Regular rate. LUNGS: Show diminished breath sounds at the base. ABDOMEN: Soft, nontender to palpation without rebound or guarding. EXTREMITIES: Negative for clubbing, cyanosis, no edema. DERMATOLOGIC: No rashes. MUSCULOSKELETAL: No joint effusions. NEUROLOGIC: No change in exam. MEDICATIONS: The patient's medications have been reviewed. LABORATORY DATA: Has been reviewed. IMAGING STUDIES: Reviewed. ASSESSMENT AND PLAN: 1. End-stage renal disease. The patient had hemodialysis yesterday and tolerated it well. Plan for dialysis again tomorrow. 2. Anemia. Monitor hemoglobin and hematocrit levels. Continue Epogen. 3. Mineral bone disorder. Monitor calcium and phosphorus levels. 4. Diabetes. Continue current insulin regimen. 5. Diabetic foot ulcer. The patient is status post second toe amputation. Continue to monitor. [facility] podiatry. Continue wound care. 6. History of cerebrovascular, continue medical management. 7. Encephalopathy. No change. 8. Hypertension. Continue current blood pressure regimen. 9. Dyslipidemia. Continue statin therapy. Dictated By: RUFUS VEGA DO NR/NTS Conf#: [id number] DID#: [id number] CC: JACKI LARA MD; BLAINE FAIRBANKS DPM;*EndCC*
[2019-01-07] MEDS: ASPIRIN (EC) 81 MG TAB PO SCH (09:00)
[2019-01-07] MEDS: CLOPIDOGREL 75 MG TAB PO SCH (09:14)
[2019-01-07] MEDS: CILOSTAZOL 100 MG TAB PO SCH (09:14)
[2019-01-07] MEDS: PAROXETINE 10 MG TAB PO SCH (09:14)
[2019-01-07] MEDS: MULTIVIT/CA CARB/B CMPLX/FA TAB PO SCH (09:14)
[2019-01-07] MEDS: FAMOTIDINE 20 MG TAB PO SCH (09:14)
[2019-01-07] MEDS: ZINC SULFATE 220 MG CAP PO SCH (09:14)
[2019-01-07] MEDS: METOPROLOL 100 MG TAB PO SCH (09:15)
[2019-01-07] MEDS: LISINOPRIL 20 MG TAB PO SCH (09:15)
[2019-01-07] MEDS: BACLOFEN 10 MG TAB PO SCH ×2 (09:15→12:19)
[2019-01-07] MEDS: DAKINS 0.0125%(1/40) 473 ML SOLUTION TP SCH (09:16)
[2019-01-07] MEDS: POVIDONE IODINE 10% 28.4 GM OINT TOP SCH (09:16)
[2019-01-07] MEDS: EUCERIN 113 GM CR TOP SCH (09:16)
[2019-01-07 14:45] VITALS: BP 120/58; PULSE 93; RESP 18
--- NOTE | 2019-01-07 15:57 | CONS ---
Assessment/Plan Assessment/Plan Hospital Course (Demo Recall) 1300 no acute changes, no fevers overnight Indwelling's: Left upper extremity AV fistula Allergy: Clindamycin Antimicrobials: Levofloxacin, Vanco Physical examination: Well-developed well-nourished elderly -[place] male in who is in no distress. Head atraumatic normocephalic neck is supple chest rise symmetrical breath sounds diminished bases. Heart: S1-S2. Abdomen soft bowel sounds present. Extremities with bilateral lower extremities dressing intact Assessment: 1. Bilateral lower extremities wounds with cellulitis and osteomyelitis of the toe, s/p 2nd toe amputation 01/02/19 2. End-stage renal disease 3. Diabetes 4. Diabetic neuropathy Plan: Clinically unchanged, per dw Dr Ford will complete 6 week course of abx==> last dose 01/29, pending dc arrangements Consultation Date/Type/Reason Admit Date/Time Dec 18, 2018 at 04:02 Initial Consult Date 12/18/18 Type of Consult id Requesting Provider: ADRIANA JUSTICE Date/Time of Note DATE: 01/07/19 TIME: 15:56 Exam/Review of Systems Exam Vitals Vital Signs Date Temp Pulse Resp B/P (MAP) Pulse Ox O2 O2 Flow FiO2 Time Delivery Rate 01/07/19 98.4 93 18 120/58 100 Room Air 14:45 (78) 01/04/19 3.0 17:28 Intake and Output 01/06/19 01/06/19 01/07/19 1515:00 23:00 07:00 IntakeIntake Total 1060 ml OutputOutput Total 1900 ml BalanceBalance -1900 ml 1060 ml Results Result Diagram: 01/05/19 1322 01/07/19 0524 Results 24hrs Laboratory Tests Test 01/06/19 17:04 01/06/19 20:56 01/07/19 01:14 01/07/19 05:24 Bedside Glucose 139 94 103 Sodium Level 137 Potassium Level 4.2 Chloride Level 97 Carbon Dioxide Level 30 Anion Gap 10 Blood Urea Nitrogen 35 #H Creatinine 7.13 #H Est Glomerular 9 L Filtrat Rate mL/min Glucose Level 101 Calcium Level 8.4 Test 01/07/19 05:32 01/07/19 08:00 01/07/19 12:19 Bedside Glucose 103 89 125 Medications Medication Current Medications Vancomycin HCl (Vanco Iv Per Pharmacy) VANCOMYCIN PER PHARMACY PER PROTOCOL XX ; Start 12/18/18 at 09:30 Hydralazine HCl (Apresoline) 20 mg Q4 PRN IV HIGH BLOOD Last administered on 12/29/18 15:52; Admin Dose 20 MG; Start 12/18/18 at 09:30 Acetaminophen (Tylenol Tab) 650 mg Q4H PRN PO MILD PAIN(1-3)OR ELEVATED TEMP; Start 12/18/18 at 09:30 Acetaminophen/ Hydrocodone Bitart ([place] (5/325)) 1 tab Q4H PRN PO MODERATE ALMAZ N LEVEL 4-6 Last administered on 12/22/18 00:00; Admin Dose 1 TAB; Start 12/18/18 at 09:30 Aspirin (Halfprin) 81 mg DAILY PO Last administered on 01/06/19 08:44; Admin Dose 81 MG; Start 12/18/18 at 09:30 Atorvastatin Calcium (Lipitor) 80 mg QHS PO Last administered on 01/06/19 21:00; Admin Dose 80 MG; Start 12/18/18 at 21:00 Baclofen (Lioresal) 10 mg TID PO Last administered on 01/07/19 12:19; Admin Dose 10 MG; Start 12/18/18 at 13:00 Clopidogrel Bisulfate (plaVIX) 75 mg DAILY PO Last administered on 01/07/19 09:14; Admin Dose 75 MG; Start 12/18/18 at 09:30 Multivit/Ca Carb/ B Cmplx/FA/Prenat (Amarilis-Christina) 1 tab DAILY PO Last administered on 01/07/19 09:14; Admin Dose 1 TAB; Start 12/18/18 at 09:30 Mirtazapine (Remeron) 15 mg HS PO Last administered on 01/06/19 21:01; Admin Dose 15 MG; Start 12/18/18 at 21:00 Paroxetine HCl (Paxil) 10 mg DAILY PO Last administered on 01/07/19 09:14; Admin Dose 10 MG; Start 12/18/18 at 09:30 Zinc Sulfate (Zinc Sulfate) 220 mg DAILY PO Last administered on 01/07/19 09:14; Admin Dose 220 MG; Start 12/18/18 at 09:30 Sevelamer Carbonate (Renvela) 800 mg WITH MEALS PO Last administered on 01/07/19 12:19; Admin Dose 800 MG; Start 12/18/18 at 11:30 Diagnostic Test (Pha) (Accu-Chek) 1 ea 02 XX Last administered on 01/04/19 02:00; Admin Dose 1 EA; Start 12/19/18 at 02:00 Miscellaneous Information 1 ea NOTE XX ; Start 12/18/18 at 13:00 Glucose (Glutose) 15 gm Q15M PRN PO DECREASED GLUCOSE Last administered on 12/19/18 22:39; Admin Dose 15 GM; Start 12/18/18 at 13:00 Glucose (Glutose) 22.5 gm Q15M PRN PO DECREASED GLUCOSE Last administered on 23:35; Admin Dose 22.5 GM; Start 12/18/18 at 13:00 Dextrose (D50w Syringe) 25 ml Q15M PRN IV DECREASED GLUCOSE Last administered on 01/06/19 08:38; Admin Dose 25 ML; Start 12/18/18 at 13:00 Dextrose (D50w Syringe) 50 ml Q15M PRN IV DECREASED GLUCOSE Last administered on 01/05/19 20:57; Admin Dose 50 ML; Start 12/18/18 at 13:00 Glucagon (Glucagen) 1 mg Q15M PRN IM DECREASED GLUCOSE Last administered on 01/05/19 12:57; Admin Dose 1 MG; Start 12/18/18 at 13:00 Glucose (Glutose) 15 gm Q15M PRN BUCCAL DECREASED GLUCOSE; Start 12/18/18 at 13:00 Epoetin Josias-epbx (Retacrit (Esrd)) 8,000 unit MoWeFr@1700 SC Last administered on 01/06/19 17:05; Admin Dose 8,000 UNIT; Start 12/18/18 at 17:00 Levofloxacin (Levaquin) 500 mg Q48H PO Last administered on 01/07/19 08:05; Admin Dose 500 MG; Start 12/20/18 at 08:00 Povidone Iodine (Povidone-Iodine) 1 applic BID TOP Last administered on 09:16; Admin Dose 1 APPLIC; Start 12/18/18 at 21:00 Sodium Hypochlorite (Dakins Diluted (1/40)) 1 applic BID TP Last administered on 01/07/19 09:16; Admin Dose 1 APPLIC; Start 12/18/18 at 21:00 Multi-Ingredient Ointment (Eucerin Cream) 1 applic DAILY TOP Last administered on 01/07/19 09:16; Admin Dose 1 APPLIC; Start 12/19/18 at 10:28 Ondansetron HCl (Zofran Inj) 4 mg Q6H PRN IV NAUSEA AND/OR VOMITING Last administered on 12/23/18 05:05; Admin Dose 4 MG; Start 12/21/18 at 13:30 Linagliptin (Tradjenta) 5 mg DAILY PO Last administered on 01/06/19 08:44; Admin Dose 5 MG; Start 12/22/18 at 14:30; Status Hold Bromocriptine Mesylate (Parlodel) 2.5 mg QHS PO Last administered on 01/06/19 21:00; Admin Dose 2.5 MG; Start 12/22/18 at 21:00 Diagnostic Test (Pha) (Accu-Chek) 1 ea AC MEALS XX Last administered on 01/07/19 12:19; Admin Dose 1 EA; Start 12/22/18 at 17:30 Vancomycin HCl 250 ml @ 125 mls/hr Q96H IVPB Last administered on 01/04/19 12:10; Admin Dose 125 MLS/HR; Start 12/23/18 at 12:00 Metoprolol Tartrate (Lopressor) 100 mg BID PO Last administered on 01/07/19 09:15; Admin Dose 100 MG; Start 12/26/18 at 21:00 Morphine Sulfate (morphine) 2 mg Q4H PRN IV SEVERE PAIN LEVEL 7-10 Last administered on 12/30/18 01:45; Admin Dose 2 MG; Start 12/29/18 at 19:00 Famotidine (Pepcid) 20 mg DAILY PO Last administered on 01/07/19 09:14; Admin Dose 20 MG; Start 12/31/18 at 09:00 Cilostazol (Pletal) 50 mg BID PO Last administered on 01/07/19 09:14; Admin Dose 50 MG; Start 12/30/18 at 21:00 Lisinopril (Zestril) 20 mg DAILY PO Last administered on 6/25/19at 09:15; Admin Dose 20 MG; Start 01/03/19 at 09:00 Glimepiride (Amaryl) 2 mg BID PO ; Start 01/04/19 at 23:30; Status Hold Insulin Aspart (Novolog Insulin Pen) NOVOLOG *MILD* ALGORITHM Q4 SC ; Start 01/06/19 at 01:00 SARABJIT DILLARD NP Jan 07, 2019 15:57
[2019-01-07] MEDS ORDERED: LISI-471 PO (17:12)
[2019-01-07] MEDS ORDERED: LEVO500T48 PO (17:12)
[2019-01-07] MEDS ORDERED: METO-407 PO (17:12)
--- NOTE | 2019-01-07 19:22 | CONS ---
Assessment/Plan Assessment/Plan Problems: (1) Diabetes mellitus type 2 in nonobese Status: Chronic Comment: Adequate glycemic control under the current regimen. 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 Status: Chronic Comment: Stable at this time Consultation Date/Type/Reason Admit Date/Time Dec 18, 2018 at 04:02 Initial Consult Date 12/22/18 Type of Consult Endocrinology Reason for Consultation Diabetes mellitus type 2 Requesting Provider: ADRIANA JUSTICE Date/Time of Note DATE: 01/07/19 TIME: 19:20 24 HR Interval Summary Free Text/Dictation Patient is without change., No new complaints Constitutional: no complaints Exam/Review of Systems Exam Vitals Vital Signs Date Temp Pulse Resp B/P (MAP) Pulse Ox O2 O2 Flow FiO2 Time Delivery Rate 01/07/19 98.4 93 18 120/58 100 Room Air 14:45 (78) 01/04/19 3.0 17:28 Intake and Output 01/06/19 01/06/19 01/07/19 1515:00 23:00 07:00 IntakeIntake Total 1060 ml OutputOutput Total 1900 ml BalanceBalance -1900 ml 1060 ml Exam No change in examination Results Result Diagram: 01/05/19 1322 01/07/19 0524 Results 24hrs Laboratory Tests Test 01/06/19 20:56 01/07/19 01:14 01/07/19 05:24 01/07/19 05:32 Bedside Glucose 94 103 103 Sodium Level 137 Potassium Level 4.2 Chloride Level 97 Carbon Dioxide Level 30 Anion Gap 10 Blood Urea Nitrogen 35 #H Creatinine 7.13 #H Est Glomerular 9 L Filtrat Rate mL/min Glucose Level 101 Calcium Level 8.4 Test 01/07/19 08:00 01/07/19 12:19 01/07/19 17:12 Bedside Glucose 89 125 139 Medications Medication Current Medications Vancomycin HCl (Vanco Iv Per Pharmacy) VANCOMYCIN PER PHARMACY PER PROTOCOL XX ; Start 12/18/18 at 09:30 Hydralazine HCl (Apresoline) 20 mg Q4 PRN IV HIGH BLOOD Last administered on 12/29/18 15:52; Admin Dose 20 MG; Start 12/18/18 at 09:30 Acetaminophen (Tylenol Tab) 650 mg Q4H PRN PO MILD PAIN(1-3)OR ELEVATED TEMP; Start 12/18/18 at 09:30 Acetaminophen/ Hydrocodone Bitart (Hollister (5/325)) 1 tab Q4H PRN PO MODERATE PAIN LEVEL 4-6 Last administered on 12/22/18 00:00; Admin Dose 1 TAB; Start 12/18/18 at 09:30 Aspirin (Halfprin) 81 mg DAILY PO Last administered on 01/06/19 08:44; Admin Dose 81 MG; Start 12/18/18 at 09:30 Atorvastatin Calcium (Lipitor) 80 mg QHS PO Last administered on 01/06/19 21:00; Admin Dose 80 MG; Start 12/18/18 at 21:00 Baclofen (Lioresal) 10 mg TID PO Last administered on 01/07/19 12:19; Admin Dose 10 MG; Start 12/18/18 at 13:00 Clopidogrel Bisulfate (plaVIX) 75 mg DAILY PO Last administered on 01/07/19 09:14; Admin Dose 75 MG; Start 12/18/18 at 09:30 Multivit/Ca Carb/ B Cmplx/FA/Prenat (Amarilis-Christina) 1 tab DAILY PO Last admin istered on 01/07/19 09:14; Admin Dose 1 TAB; Start 12/18/18 at 09:30 Mirtazapine (Remeron) 15 mg HS PO Last administered on 01/06/19 21:01; Admin Dose 15 MG; Start 12/18/18 at 21:00 Paroxetine HCl (Paxil) 10 mg DAILY PO Last administered on 01/07/19 09:14; Admin Dose 10 MG; Start 12/18/18 at 09:30 Zinc Sulfate (Zinc Sulfate) 220 mg DAILY PO Last administered on 01/07/19 09:14; Admin Dose 220 MG; Start 12/18/18 at 09:30 Sevelamer Carbonate (Renvela) 800 mg WITH MEALS PO Last administered on 01/07/19 17:13; Admin Dose 800 MG; Start 12/18/18 at 11:30 Diagnostic Test (Pha) (Accu-Chek) 1 ea 02 XX Last administered on 01/04/19at 02:00; Admin Dose 1 EA; Start 12/19/18 at 02:00 Miscellaneous Information 1 ea NOTE XX ; Start 12/18/18 at 13:00 Glucose (Glutose) 15 gm Q15M PRN PO DECREASED GLUCOSE Last administered on 12/19/18 22:39; Admin Dose 15 GM; Start 12/18/18 at 13:00 Glucose (Glutose) 22.5 gm Q15M PRN PO DECREASED GLUCOSE Last administered on 12/19/18 23:35; Admin Dose 22.5 GM; Start 12/18/18 at 13:00 Dextrose (D50w Syringe) 25 ml Q15M PRN IV DECREASED GLUCOSE Last administered on 01/06/19 08:38; Admin Dose 25 ML; Start 12/18/18 at 13:00 Dextrose (D50w Syringe) 50 ml Q15M PRN IV DECREASED GLUCOSE Last administered on 01/05/19 20:57; Admin Dose 50 ML; Start 12/18/18 at 13:00 Glucagon (Glucagen) 1 mg Q15M PRN IM DECREASED GLUCOSE Last administered on 01/05/19 12:57; Admin Dose 1 MG; Start 12/18/18 at 13:00 Glucose (Glutose) 15 gm Q15M PRN BUCCAL DECREASED GLUCOSE; Start 12/18/18 at 13:00 Epoetin Josias-epbx (Retacrit (Esrd)) 8,000 unit MoWeFr@1700 SC Last administered on 01/06/19 17:05; Admin Dose 8,000 UNIT; Start 12/18/18 at 17:00 Levofloxacin (Levaquin) 500 mg Q48H PO Last administered on 01/07/19 08:05; Admin Dose 500 MG; Start 12/20/18 at 08:00 Povidone Iodine (Povidone-Iodine) 1 applic BID TOP Last administered on 01/07/19 09:16; Admin Dose 1 APPLIC; Start 12/18/18 at 21:00 Sodium Hypochlorite (Dakins Diluted (1/40)) 1 applic BID TP Last administered on 01/07/19 09:16; Admin Dose 1 APPLIC; Start 12/18/18 at 21:00 Multi-Ingredient Ointment (Eucerin Cream) 1 applic DAILY TOP Last administered on 01/07/19 09:16; Admin Dose 1 APPLIC; Start 12/19/18 at 10:28 Ondansetron HCl (Zofran Inj) 4 mg Q6H PRN IV NAUSEA AND/OR VOMITING Last administered on 12/23/18 05:05; Admin Dose 4 MG; Start 12/21/18 at 13:30 Linagliptin (Tradjenta) 5 mg DAILY PO Last administered on 01/06/19 08:44; Admin Dose 5 MG; Start 12/22/18 at 14:30; Status Hold Bromocriptine Mesylate (Parlodel) 2.5 mg QHS PO Last administered on 01/06/19 21:00; Admin Dose 2.5 MG; Start 12/22/18 at 21:00 Diagnostic Test (Pha) (Accu-Chek) 1 ea AC MEALS XX Last administered on 01/07/19 17:13; Admin Dose 1 EA; Start 12/22/18 at 17:30 Vancomycin HCl 250 ml @ 125 mls/hr Q96H IVPB Last administered on 01/04/19 12:10; Admin Dose 125 MLS/HR; Start 12/23/18 at 12:00 Metoprolol Tartrate (Lopressor) 100 mg BID PO Last administered on 01/07/19 09:15; Admin Dose 100 MG; Start 12/26/18 at 21:00 Morphine Sulfate (morphine) 2 mg Q4H PRN IV SEVERE PAIN LEVEL 7-10 Last administered on 12/30/18 01:45; Admin Dose 2 MG; Start 12/29/18 at 19:00 Famotidine (Pepcid) 20 mg DAILY PO Last administered on 01/07/19 09:14; Admin Dose 20 MG; Start 12/31/18 at 09:00 Cilostazol (Pletal) 50 mg BID PO Last administered on 01/07/19 09:14; Admin Dose 50 MG; Start 12/30/18 at 21:00 Lisinopril (Zestril) 20 mg DAILY PO Last administered on 6/25/19at 09:15; Admin Dose 20 MG; Start 01/03/19 at 09:00 Glimepiride (Amaryl) 2 mg BID PO ; Start 01/04/19 at 23:30; Status Hold Insulin Aspart (Novolog Insulin Pen) NOVOLOG *MILD* ALGORITHM Q4 SC ; Start 01/06/19 at 01:00 RADHA HENSON MD Jan 07, 2019 19:22
[2019-01-07 19:59] VITALS: BP 110/49; PULSE 98; RESP 20
--- NOTE | 2019-01-08 00:45 | DS ---
Date/Time of Note Date/Time of Note DATE: 01/08/19 TIME: 00:41 Discharge Summary Admission/Discharge Info Admit Date/Time Dec 18, 2018 at 04:02 Discharge Date/Time Jan 07, 2019 at 20:50 Patient Condition: Stable Hx of Present Illness The patient is 63-year-old gentleman with history of strokes, diabetes, hemodialysis dependent end-stage renal disease, and hyperlipidemia. Patient is a poor historian, does not remember his high risk ob. Most of the history was obtained from medical records. Patient was sent from PMD office for right foot ulcer with cellulitis. Patient stated that he had his hemodialysis 2 days ago. Patient denies any shortness of breath denies any chest pain denies any fever chills, denies any nausea vomiting diarrhea. Patient was started on vancomycin and Zosyn for a right foot ulcer and admitted for further evaluation and management to medical surgical floor. Hospital Course Patient discharged home with home health services for wound care, per case management patient is arranged to get vancomycin with each hemodialysis for 4 weeks for treatment of osteomyelitis. -Hypoglycemia, resolved, pt encouraged frequent meals, Trajenta and Amaryl is held, continue Novolog PRN. -Level of consciousness most likely secondary to blood sugar fluctuation, CT of the brain and MRI of the head are negative for acute stroke. Dr. Alfaro is following in neurology consultation. -Right foot ulcer with cellulitis, right second toe ulcer with osteomyelitis and bone exposure. S/p right second toe amputation by Dr.Dr. Ford, podiatry. Continue vancomycin with each hemodialysis and Levaquin for [address] Giles is following in infection disease consultation. -Hemodialysis dependent end-stage renal disease. Dr. Agustin is following in nephrology consultation. -Diabetes mellitus type 2. Continue NovoLog per sliding scale. -Hyperlipidemia, continue statin. -History of stroke, continue Plavix. Plan of care discussed with Dr. Perez. Home Meds Active Scripts Levofloxacin* (Levaquin*) 500 Mg Tablet, 500 MG PO Q48H for 28 Days, TAB Prov:NEL LARSEN 01/07/19 Lisinopril* (Lisinopril*) 20 Mg Tablet, 20 MG PO DAILY for 30 Days, TAB Prov:NEL LARSEN 01/07/19 Metoprolol Tartrate* (Lopressor*) 100 Mg Tablet, 100 MG PO BID for 30 Days, TAB Prov:NEL LARSEN 01/07/19 Reported Medications Clopidogrel Bisulfate (Clopidogrel) 75 Mg Tablet, 75 MG PO DAILY for 90 Days, #90 12/18/18 Amlodipine Besylate* (Norvasc*) 10 Mg Tablet, 10 MG PO DAILY, TAB 07/12/18 Sevelamer Hcl* (Renagel*) 800 Mg Tablet, 800 MG PO WITH MEALS, TAB 07/12/18 Zinc Sulfate* (Zinc Sulfate*) 220 Mg Cap, 220 MG PO DAILY, CAP 07/12/18 Folic Acid/Vitamin B Comp W-C (Nephrocaps Capsule) 1 Mg Capsule, 1 MG PO DAILY, CAP 07/12/18 Atorvastatin* (Atorvastatin*) 80 Mg Tablet, 80 MG PO QHS, #30 TAB 07/12/18 Baclofen* (Baclofen*) 10 Mg Tablet, 10 MG PO TID, TAB 07/12/18 Mirtazapine* (Mirtazapine*) 15 Mg Tablet, 15 MG PO HS, TAB 07/12/18 Aspirin (Low Dose Aspirin) 81 Mg Tablet., 81 MG PO DAILY, #30 TAB 07/12/18 Paroxetine Hcl* (Paxil*) 10 Mg Tablet, 10 MG PO DAILY, TAB 07/12/18 Discontinued Reported Medications Folic Acid/Vitamin B Comp W-C (Renal Multivitamin Tablet) 0.8 Mg Tablet, 1 TAB PO DAILY for 90 Days, #90 12/18/18 Glimepiride* (Glimepiride*) 2 Mg Tablet, 2 MG PO BID for 90 Days, #180 12/18/18 Levofloxacin* (Levofloxacin*) 500 Mg Tablet, 500 MG PO DAILY 12/18/18 Glipizide* (Glipizide*) 5 Mg Tablet, 5 MG PO AC BREAKFAST DINNER, TAB 07/12/18 Follow-up Plan Follow-up with Dr. Ford in podiatry consultation in 1-2 weeks., patient needs vancomycin with hemodialysis at [facility] for 4 weeks for treatment of osteomyelitis. Follow-up at hemodialysis center tomorrow. Primary Care Provider Not On Staff Doctor Time spent on discharge: > 30 minutes Pending Labs Laboratory Tests Test 6/25/19 01:14 01/07/19 05:24 01/07/19 05:32 01/07/19 08:00 Bedside 103 103 89 Glucose mg/dL (70-220) mg/dL (70-220) mg/dL (70-220) Sodium Level 137 mmol/L (135-14 4) Potassium 4.2 Level mmol/L (3.5-5. 1) Chloride Level 97 mmol/L (97-110 ) Carbon Dioxide 30 Level mmol/L (21-31) Anion Gap 10 (5-13) Blood Urea 35 Nitrogen mg/dl (7-20) Creatinine 7.13 mg/dl (0.61-1. 24) Est Glomerular 9 mL/min (>60) Filtrat Rate mL/min Glucose Level 101 mg/dl (70-220) Calcium Level 8.4 mg/dl (8.4-10. 2) Test 01/07/19 12:19 01/07/19 17:12 Bedside 125 139 Glucose mg/dL (70-220) mg/dL (70-220) NEL LARSEN Jan 08, 2019 00:45
== END 2019-01-07 20:50 | disposition home health service (06) | DRG 617 ==
LOC: E/R 20:30 → PP2 12-18 04:02 → EDBEDREQ 12-18 07:15 → 6WM 12-21 15:45 → PP2 01-05 02:40
PROVIDERS: ADMIT Internal Medicine; ATTEND Internal Medicine
PROC: 5A1D70Z Performance of Urinary Filtration, Intermittent, Less than 6 Hours Per Day (ICD-10-PCS; 2018-12-19)
PROC: 5A1D70Z Performance of Urinary Filtration, Intermittent, Less than 6 Hours Per Day (ICD-10-PCS; 2018-12-20)
PROC: 5A1D70Z Performance of Urinary Filtration, Intermittent, Less than 6 Hours Per Day (ICD-10-PCS; 2018-12-21)
PROC: 5A1D70Z Performance of Urinary Filtration, Intermittent, Less than 6 Hours Per Day (ICD-10-PCS; 2018-12-23)
PROC: 5A1D70Z Performance of Urinary Filtration, Intermittent, Less than 6 Hours Per Day (ICD-10-PCS; 2018-12-25)
PROC: 5A1D70Z Performance of Urinary Filtration, Intermittent, Less than 6 Hours Per Day (ICD-10-PCS; 2018-12-27)
PROC: 5A1D70Z Performance of Urinary Filtration, Intermittent, Less than 6 Hours Per Day (ICD-10-PCS; 2018-12-28)
PROC: 5A1D70Z Performance of Urinary Filtration, Intermittent, Less than 6 Hours Per Day (ICD-10-PCS; 2018-12-30)
PROC: 5A1D70Z Performance of Urinary Filtration, Intermittent, Less than 6 Hours Per Day (ICD-10-PCS; 2019-01-01)
PROC: 0Y6R0Z0 Detachment at Right 2nd Toe, Complete, Open Approach (ICD-10-PCS; principal; 2019-01-02 12:00)
PROC: 5A1D70Z Performance of Urinary Filtration, Intermittent, Less than 6 Hours Per Day (ICD-10-PCS; 2019-01-06)
DX: E11.621 Type 2 diabetes mellitus with foot ulcer (principal); I12.0 Hypertensive chronic kidney disease with stage 5 chronic kidney disease or end stage renal disease; L03.115 Cellulitis of right lower limb; L97.516 Non-pressure chronic ulcer of other part of right foot with bone involvement without evidence of necrosis; M86.671 Other chronic osteomyelitis, right ankle and foot; M86.271 Subacute osteomyelitis, right ankle and foot; E11.51 Type 2 diabetes mellitus with diabetic peripheral angiopathy without gangrene; G92 Toxic encephalopathy; N18.6 End stage renal disease; N17.9 Acute kidney failure, unspecified; E11.22 Type 2 diabetes mellitus with diabetic chronic kidney disease; I95.9 Hypotension, unspecified; E87.5 Hyperkalemia; J84.10 Pulmonary fibrosis, unspecified; L97.529 Non-pressure chronic ulcer of other part of left foot with unspecified severity; F01.50 Vascular dementia, unspecified severity, without behavioral disturbance, psychotic disturbance, mood disturbance, and anxiety; E78.5 Hyperlipidemia, unspecified; E87.6 Hypokalemia; D63.1 Anemia in chronic kidney disease; J44.9 Chronic obstructive pulmonary disease, unspecified; F34.1 Dysthymic disorder; E11.628 Type 2 diabetes mellitus with other skin complications; E11.69 Type 2 diabetes mellitus with other specified complication; E11.42 Type 2 diabetes mellitus with diabetic polyneuropathy; E11.622 Type 2 diabetes mellitus with other skin ulcer; Z79.4 Long term (current) use of insulin; Z79.82 Long term (current) use of aspirin; Z99.2 Dependence on renal dialysis; Z87.891 Personal history of nicotine dependence; Z86.73 Personal history of transient ischemic attack (TIA), and cerebral infarction without residual deficits; Z79.02 Long term (current) use of antithrombotics/antiplatelets
CPT/HCPCS: 36415; 36600; 70450; 70551; 71045; 73620; 73630; 74176; 80048; 80053; 80061; 80202; 82140; 82803; 82947; 82962; 83036; 83605; 83690; 83735; 84100; 84484; 85025; 85610; 85730; 86706; 87340; 88305; 88311; 90935; 93005; 93306; 93923; 93970; 95819; 96374; J0360; J1100; J1610; J1815; J2270; J2405; J2543; J3370; J7040; J7042; Q5105

== ENCOUNTER 2019-01-12 22:14 | Emergency (ER) | payer MEDICARE, OTHER ==
[~2019-01-12] VITALS: Ht 185.4 cm; Wt 68.2 kg
[~2019-01-12 22:14] MED LIST changes: +CLOP75TA28 PO; -GLIP5TAB13 PO; +LEVO500T48 PO; +LISI-471 PO; +METO-407 PO
[2019-01-12 22:28] VITALS: Ht 185.4 cm; Wt 68.2 kg
--- NOTE | 2019-01-12 22:44 | ERD ---
ER Documentation Chief Complaint Chief Complaint [id number],from home,hypoglycemia w/ initial blood sugar 45 HPI 63-year-old man with a history of diabetes mellitus brought in by EMS from home for hypoglycemia, family member was at the bedside and stated she checked his blood sugar this evening and it was 25 and she gave him some orange juice and it went up to 45 and that is when she called 911. Patient's mental status did improve at the scene and he was transported here without complications. He has end-stage kidney disease hemodialyzed on MWF, last dialysis 2 days ago, he has had no fevers or chills, no vomiting or diarrhea, no complaints of chest pain or shortness of breath. ROS All systems reviewed and are negative except as per history of present illness. Medications Home Meds Active Scripts Levofloxacin* (Levaquin*) 500 Mg Tablet, 500 MG PO Q48H for 28 Days, TAB Prov:NEL LARSEN 01/07/19 Lisinopril* (Lisinopril*) 20 Mg Tablet, 20 MG PO DAILY for 30 Days, TAB Prov:NEL LARSEN 01/07/19 Metoprolol Tartrate* (Lopressor*) 100 Mg Tablet, 100 MG PO BID for 30 Days, TAB Prov:NEL LARSEN 01/07/19 Reported Medications Clopidogrel Bisulfate (Clopidogrel) 75 Mg Tablet, 75 MG PO DAILY for 90 Days, #90 12/18/18 Amlodipine Besylate* (Norvasc*) 10 Mg Tablet, 10 MG PO DAILY, TAB 07/12/18 Sevelamer Hcl* (Renagel*) 800 Mg Tablet, 800 MG PO WITH MEALS, TAB 07/12/18 Zinc Sulfate* (Zinc Sulfate*) 220 Mg Cap, 220 MG PO DAILY, CAP 07/12/18 Folic Acid/Vitamin B Comp W-C (Nephrocaps Capsule) 1 Mg Capsule, 1 MG PO DAILY, CAP 07/12/18 Atorvastatin* (Atorvastatin*) 80 Mg Tablet, 80 MG PO QHS, #30 TAB 07/12/18 Baclofen* (Baclofen*) 10 Mg Tablet, 10 MG PO TID, TAB 07/12/18 Mirtazapine* (Mirtazapine*) 15 Mg Tablet, 15 MG PO HS, TAB 07/12/18 Aspirin (Low Dose Aspirin) 81 Mg Tablet.dr, 81 MG PO DAILY, #30 TAB 07/12/18 Paroxetine Hcl* (Paxil*) 10 Mg Tablet, 10 MG PO DAILY, TAB 07/12/18 Discontinued Reported Medications Folic Acid/Vitamin B Comp W-C (Renal Multivitamin Tablet) 0.8 Mg Tablet, 1 TAB PO DAILY for 90 Days, #90 12/18/18 Glimepiride* (Glimepiride*) 2 Mg Tablet, 2 MG PO BID for 90 Days, #180 12/18/18 Levofloxacin* (Levofloxacin*) 500 Mg Tablet, 500 MG PO DAILY 12/18/18 Glipizide* (Glipizide*) 5 Mg Tablet, 5 MG PO AC BREAKFAST DINNER, TAB 07/12/18 Allergies Allergies: Coded Allergies: clindamycin (Verified Allergy, Severe, 12/18/18) PMhx/Soc Dementia, history of strokes, diabetes, hemodialysis dependent end-stage renal disease, and hyperlipidemia, Hypertension, peripheral arterial disease with nonhealing lower extremity ulcers s/p toe amputation, psychiatric disorder. History of Surgery: Yes (cataract ) Anesthesia Reaction: No Hx Neurological Disorder: Yes (stroke ) Hx Respiratory Disorders: No Hx Cardiac Disorders: Yes (stroke) Hx Psychiatric Problems: No Hx Miscellaneous Medical Probl: No Hx Alcohol Use: No Hx Substance Use: Yes Hx Tobacco Use: No Smoking Status: Unknown if ever smoked FmHx Family History: diabetes Physical Exam Vitals Vital Signs Date Temp Pulse Resp B/P (MAP) Pulse Ox O2 O2 Flow FiO2 Time Delivery Rate 01/13/19 84 17 169/85 98 Room Air 01:35 (113) 01/13/19 97 18 99 21 01:00 01/13/19 85 18 172/81 100 Room Air 00:30 (111) 01/12/19 98.0 82 10 184/88 98 Room Air 22:35 (120) 01/12/19 97.5 87 15 187/91 98 22:28 (123) Physical Exam Const: Elderly, chronically debilitated appearing man, nontoxic, afebrile Resp: Clear to auscultation bilaterally Cardio: Regular rate and rhythm, no murmurs Abd: Soft, non tender, non distended. No masses or rigidity Skin: Superficial ulceration to the anterior legs bilaterally, no purulent discharge Ext: No cyanosis, or edema, calves symmetrical, distal pulses equal bilateral Neur: Awake and alert x2, able to answer simple questions and follow simple commands, no focal deficits or facial asymmetry Psych: Normal Mood and Affect Result Diagram: 01/12/19 2333 01/12/19 2333 Results 24 hrs Laboratory Tests Test 01/12/19 23:33 White Blood Count 6.8 10^3/ul Red Blood Count 3.48 10^6/ul Hemoglobin 9.6 g/dl Hematocrit 30.0 % Mean Corpuscular Volume 86.2 fl Mean Corpuscular Hemoglobin 27.6 pg Mean Corpuscular Hemoglobin Concent 32.0 g/dl Red Cell Distribution Width 18.5 % Platelet Count 404 10^3/UL Mean Platelet Volume 11.2 fl Immature Granulocytes % 0.400 % Neutrophils % 83.0 % Lymphocytes % 8.4 % Monocytes % 7.5 % Eosinophils % 0.1 % Basophils % 0.6 % Nucleated Red Blood Cells % 0.0 /100WBC Immature Granulocytes # 0.030 10^3/ul Neutrophils # 5.6 10^3/ul Lymphocytes # 0.6 10^3/ul Monocytes # 0.5 10^3/ul Eosinophils # 0.0 10^3/ul Basophils # 0.0 10^3/ul Nucleated Red Blood Cells # 0.0 10^3/ul Sodium Level 139 mmol/L Potassium Level 5.6 mmol/L Chloride Level 92 mmol/L Carbon Dioxide Level 31 mmol/L Anion Gap 16 Blood Urea Nitrogen 61 mg/dl Creatinine 9.86 mg/dl Est Glomerular Filtrat Rate mL/min 7 mL/min Glucose Level 101 mg/dl Calcium Level 8.9 mg/dl Total Bilirubin 0.4 mg/dl Direct Bilirubin 0.00 mg/dl Indirect Bilirubin 0.4 mg/dl Aspartate Amino Transf (AST/SGOT) 55 IU/L Alanine Aminotransferase (ALT/SGPT) 12 IU/L Alkaline Phosphatase 83 IU/L Troponin I < 0.012 ng/ml Total Protein 7.7 g/dl Albumin 4.0 g/dl Globulin 3.70 g/dl Albumin/Globulin Ratio 1.08 Lipase 215 U/L Current Medications Medications Dose Sig/Sena Start Time Status Last (Trade) Ordered Route PRN Stop Time Admin Dose Reason Admin Dextrose 50 ml ONCE STAT 01/12/19 DC (D50w IV 22:49 Syringe) 01/12/19 22:51 Albuterol 10 mg ONCE STAT 01/13/19 DC 01/13/19 (Proventil INH 00:49 01/13/19 00:58 0.5% (Neb)) 00:55 Procedures/MDM IV line was established patient was placed on copy writer rhythm strip revealed a sinus rhythm at about 80 bpm with upright P and T waves. Patient was afebrile EKG performed, read by me revealed a normal sinus rhythm at 83 bpm, first-degree AV block at 206 ms, normal axis, narrow QRS complex, no concerning ST elevations or or depressions noted Patient's blood sugar was normal here and he was given a small meal tray to eat which he tolerated without difficulty. CBC was normal, electrolytes revealed mild hyperkalemia, liver function tests were normal, troponin negative I administered albuterol 10 mg via nebulizer for hyperkalemia Chest X-ray 1V Interpreted by me: Soft Tissue: No acute abnormalities Bones: No acute abnormalities Mediastinum/Cardiac Silhouette/Lungs: No acute abnormalities Patient's mental status remained at baseline and blood sugar remained within normal limits, vital signs are normal and he will be discharged for dialysis later this morning. Differential diagnoses considered, included but not limited to acute coronary syndrome, pulmonary embolism, aortic dissection, abdominal aortic aneurysm, sepsis, stroke, meningitis, encephalitis, pneumonia, appendicitis, cholecystitis, bowel obstruction, pyelonephritis, nephrolithiasis, cystitis, as well as metabolic, hematologic, and electrolyte abnormalities. As well as abscess, cellulitis, fractures, and dislocations. Patient feels much better at this time, and vital signs are normal, symptoms have improved. I did give strict instructions to return to the ED if symptoms continue or worsen, patient will otherwise follow-up with primary care physician. Patient understood instructions and agreed to plan. Disclaimer: Inadvertent spelling and grammatical errors are likely due to EHR/dictation software use and do not reflect on the overall quality of patient care. Also, please note that the electronic time recorded on this note does not necessarily reflect the actual time of the patient encounter. Departure Diagnosis: Primary Impression: Hypoglycemia Additional Impressions: End stage kidney disease Acute hyperkalemia Condition: ARELIS Burgos MD Jan 12, 2019 22:44
[2019-01-12] MEDS ORDERED: DEXTROSE 50% 50 ML SYRINGE IV STA (22:49)
[2019-01-13] MEDS ORDERED: ALBUTEROL 0.5% (NEB) 2.5 MG/0.5 ML AMP INH STA (00:49)
[2019-01-13 01:35] VITALS: BP 169/85; PULSE 84; RESP 17
== END 2019-01-13 01:37 | disposition home or self-care (01) ==
LOC: E/R 22:14
DX: E11.649 Type 2 diabetes mellitus with hypoglycemia without coma (principal); E11.22 Type 2 diabetes mellitus with diabetic chronic kidney disease; I12.0 Hypertensive chronic kidney disease with stage 5 chronic kidney disease or end stage renal disease; N18.6 End stage renal disease; E87.5 Hyperkalemia; Z99.2 Dependence on renal dialysis; Z86.73 Personal history of transient ischemic attack (TIA), and cerebral infarction without residual deficits; Z79.82 Long term (current) use of aspirin; Z79.01 Long term (current) use of anticoagulants
CPT/HCPCS: 71045; 80053; 82962; 83690; 84484; 85025; 93005; 94644